=== PATIENT | female | born 1950 | race Caucasian/White ===

== ENCOUNTER 2020-10-20 14:37 | Observation (INO) | payer MEDICARE, SELFPAY ==
[2020-10-20] VITALS (25 sets, daily range): BP systolic 92–137; BP diastolic 48–71; PULSE 58–79; RESP 16–18; TEMP 36.2–37.1; O2SAT 92–100; BMI 42.7
--- NOTE | 2020-10-20 10:58 | PCM.HP.BLA ---
History and Physical Date of Admission: 10/20/20 HISTORY OF PRESENT ILLNESS 70 year old woman presents with pain and swelling left cheek and dorsum right hand secondary to a hematoma that she sustained on 10/04/20 when she fell at [employer] parking lot in [place]. She denied loss of consciousness. She was taken to [place] [facility]. X-rays and CT scans were negative for fracture. She denies fever. She denies any visual problems. She states the hematomas have decreased in size, but she is concerned about the firmness in the left cheek and the increasing pain. At the time of the injury, she states her left cheek was as large as a baseball. She presents at this time for further evaluation and treatment. PAST MEDICAL HISTORY Anxiety Arthritis Asthma Back problem Bite from insect Bone fracture Carpal tunnel syndrome Cataracts, bilateral Chronic cough Chronic insomnia Compression fracture of thoracic vertebra CPAP (continuous positive airway pressure) dependence Diverticulitis Easy bruising Former smoker Gallstones Gastric reflux GERD (gastroesophageal reflux disease) Gout Hearing problem High blood pressure High cholesterol History of diverticulitis Injury due to fall Kidney stones Leg edema Lumbar degenerative disc disease Lung nodules Morbid obesity Neuropathy Obstructive sleep apnea Osteoarthritis Osteoporosis Paget's disease Peripheral polyneuropathy Persistent headaches Right hand pain Shortness of breath on exertion Sleep apnea Spinal stenosis TIA (transient ischemic attack) Traumatic hematoma of face Traumatic hematoma of right hand Traumatic neuropathy left facial nerve Tremors of nervous system Vitamin deficiency Wears dentures Wears glasses PAST SURGICAL HISTORY colonoscopy endoscopy excision of lesion laminectomy lithotripsy tonsillectomy and adenoidectomy total hysterectomy Total knee replacement status ALLERGIES amoxicillin [From Augmentin] blue dye Allergy clavulanic acid [From Augmentin] cortisone Estrogens estrogens, conjugated [From Prempro] insect venom levofloxacin [From Levaquin] medroxyprogesterone [From Prempro] NSAIDS red dye yellow dye Iodinated Contrast Media mold trazodone Influenza Vaccine Progestrin MEDICATIONS acetaminophen albuterol sulfate/actuation aerosol inhaler allopurinol sifuazs-zefajqcjw-wdpv cetirizine cholecalciferol (vitamin D3) docusate sodium furosemide gabapentin hydrocodone-acetaminophen hydroxyzine ibandronate ipratropium bromide milk thistle montelukast nystatin omega 8-xcv-yzt-fish oil omeprazole orlistat phenylephrine HCl polyethylene glycol propranolol sertraline simvastatin temazepam triamcinolone acetonide tryptophan [L-Tryptophan] FAMILY HISTORY Father - Alcoholism, Cancer, Heart disease, Hypertension, Liver disease Mother - Anxiety, Arthritis, Bleeding disorder, Bowel disease, Depression Brother - Cancer, Melanoma Grandmother - Diabetes Uncle - Diabetes SOCIAL HISTORY Smoking Status: Former smoker alcohol intake: never substance use type: does not use REVIEW OF SYSTEMS General - Denies fever and weight loss. Has fatigue. Eyes - Has cataracts. Denies glaucoma. ENT - Denies nasal congestion and sore throat. Has chronic sinus problems. Endocrine - Denies excessive thirst and urination. Has heat and cold intolerance. Skin - Denies suspicious lesions and skin cancer. Has traumatic hematoma left cheek and dorsum right hand. Musculoskeletal - Has joint pain, joint stiffness, weakness of muscles and joints, back pain, and arthritis. Neuro - Has headaches. Has lightheadedness. Cardiovascular - Denies chest pain, fatigue, and shortness of breath with exertion. Psych - Denies anxiety and depression. Respiratory - Has chronic cough. Denies shortness of breath. Has sleep apnea. Has asthma. Patient is a former smoker. Gastrointestinal - Denies nausea, vomiting, diarrhea, and constipation. Hematologic - Denies abnormal bruising and bleeding. Genitourinary - Denies hematuria and urinary frequency. Has incontinence. PHYSICAL EXAMINATION General - Alert and Oriented. HEENT - PERRL. EOMI. Throat is clear. There is a large hematoma left cheek which extends up to the cheek-lower eyelid junction. Very firm and tender to palpation. The overlying skin is viable. Bruising is noted. No necrosis seen. Measures 7 cm. No periorbital bony tenderness. No stepoff deformity. Denies teeth pain. Has no trouble with eating. Occlusion ok. Has trouble with smiling on the left side as there is weak upper lip elevation. The zygomaticus muscle is in the vicinity of the hematoma so there is compression of the facial nerve in this area which should improve once the pressure is released in the operating room. Neck - Supple and nontender. No cervical adenopathy. Has some bruising on the anterior and left lateral neck. The area is soft. Probably blood tracking down from the left cheek hematoma to the neck. Chest wall - In the upper sternal area is some bruising. The area is soft. Probably blood tracking down from the left cheek hematoma to the upper sternal area. Lungs - Clear to auscultation. Heart - Regular rate and rhythm. Abdomen - Soft and nondistended. Extremities - FROM. No axillary adenopathy. Radial pulses are palpable. On the dorsum right hand is a hematoma that measures 3.5 cm. It is soft. Some tenderness to palpation. Wrist range of motion is nontender. No sensory deficits. Mild swelling noted. Neuro - CN II-XII grossly intact. Psych - Normal mood and affect. ASSESSMENT 1. Traumatic hematoma left cheek. 2. Traumatic hematoma dorsum right hand. 3. Left cheek pain secondary to the hematoma. 4. Right hand pain secondary to the hematoma. 5. Neuropathy left facial nerve secondary to the hematoma. 6. Family history of skin cancer. 7. Former smoker. 8. Injury due to a fall at [employer] lot. PLAN Medical notes reviewed. Patient has a large residual hematoma that is very firm and tender. There is also a hematoma on the dorsum right hand. The hematoma is too large to think it will completely resolve without getting infected. It is also very tender from the pressure of the hematoma. By evacuating the hematoma, will see how the left upper lip does with smiling now that the external compression (the hematoma) has been relieved. She has another traumatic hematoma on the dorsum right hand. Once again to minimize infection, will also evacuate that hematoma as well. Surgery will be done under local anesthesia and IV sedation with a surgical observation overnight stay in the hospital. Will proceed with surgical preparation left cheek and dorsum right hand with incision and drainage and evacuation and excisional debridement traumatic hematoma. The wounds will be left open and postoperative wound care will be done with Silver dressing changes or Dakin's dressing changes. After healing has occurred, if there is suboptimal healing of the scars with a contour deformity, can evaluate for scar revision reconstruction in 9-12 months. Tissue that is removed will be sent to Pathology for analysis to rule out carcinoma and to Microbiology for culture. A positive culture will necessitate antibiotics therapy. She will keep her head elevated during the initial postoperative period. Will schedule the surgery for tomorrow. Patient was informed of the risks and complications of the procedure including alternatives to surgery. These were discussed with the patient personally. Patient voices understanding and wishes to proceed. Some of the risks and complications were included in a form from the [place] [employer]. Some of the risks and complications that were discussed included but were not inclusive of failure to diagnose including symptom relief, pain, infection, numbness, stiffness, loss of digit, RSD (CRPS), need for further surgery, contracture, and wound healing problems. We discussed the current risks associated with COVID-19. While it is understood that there is a community spread of COVID-19, the risk of johnathon COVID-19 while at [facility] ([facility]) is very low; however, the risk cannot be completely mitigated because of the community spread of the disease. We discussed in detail the risk of exposure to and/or potential harm posed by the COVID-19 virus with having a surgery/procedure at this time versus the risk of delaying the surgery/procedure. It is not possible to know either the risk of delaying the surgery or procedure or chance of getting an infection with perfect accuracy, but a joint decision was made to proceed at this time with the scheduled surgery/procedure as indicated on the consent form. Patient was notified that we will need to comply with any screening or testing [facility] wishes to perform or that surgery may be delayed for any positive results. Procedure Criteria Procedure Type:?Elective COVID Risk Discussion: The surgeon/proceduralist and patient have discussed in detail the risk of exposure to and/or potential harm posed by the COVID-19 virus with having a surgery/procedure at this time versus the risk of delaying the surgery/procedure.? It is not possible to know either the risk of delaying the surgery or procedure or chance of getting an infection with perfect accuracy, but a joint decision was made between the patient and the surgeon/proceduralist to proceed at this time with the scheduled surgery/procedure as indicated on the consent form.
--- NOTE | 2020-10-20 11:39 | EKG12_ITS ---
Test Reason : PRE OP Blood Pressure : / mmHG Vent. Rate : 065 BPM Atrial Rate : 065 BPM P-R Int : 190 ms QRS Dur : 080 ms QT Int : 392 ms P-R-T Axes : 008 -14 017 degrees QTc Int : 407 ms Normal sinus rhythm Normal ECG Confirmed by ELI DELANEY, GWENDOLYN ([id number]), social media editor MAIKEL ORDAZ ([id number]) on 10/28/2020 9:49:23 AM Referred By: Barney Mccall Confirmed By:GWENDOLYN BENITEZ MD
[2020-10-20] MEDS: Lactated Ringers 1,000 ML 100 ML IV ×2 (12:20→14:21)
[2020-10-20] MEDS: Mupirocin Ointment 22gm Tube 1 APPLIC ×2 (13:15→13:46)
[2020-10-20] MEDS: Lidocaine 1% /Epi 1:100 (20ml) 20 ML Vial (13:20)
--- NOTE | 2020-10-20 13:30 | THRO_PTH ---
PATIENT: DENTON ABEBE LOC: MS3 U#:[id number] AGE/SX: 70/F ROOM: [facility] RE10/20/[address]: Dr. Barney Mccall MD : 1950 BED: 1 DIS: 10/21/2020 SPEC #: [id number] RECD: 10/20/20 15:28 STATUS: NIRAV AJITH #: [id number] ADI: 10/20/20 13:[address]: Barney Mccall DEPT: SURGICAL PATHOLOGY RECD BY: Rohan Mosher ENTERED: 10/21/20 09:52 SP TYPE: THROMBUS OTHR DR: Dr. Ally Schaefer, DO Tissues: A - BLOOD CLOT, NOS B - BLOOD CLOT, NOS Procedures: Surgery Specimen Level IV HEADER OPERATION: Incision and drainage abscess, evacuation of traumatic hematoma PRE-OP DIAGNOSIS: Traumatic hematoma left cheek; traumatic hematoma dorsum right hand; left cheek pain secondary to hematoma; right hand pain secondary to hematoma; neuropathy left facial nerve secondary to hematoma TISSUE SUBMITTED: A - Tissue from hematoma left cheek, B - Tissue from hematoma dorsum right hand MICROSCOPIC DIAGNOSIS A. Hematoma of left cheek, biopsy: Fat necrosis, fibrosis and organizing blood clot. B. Soft tissue of dorsum of right hand, biopsy: Fibrosis, granulation and organizing blood clot. AM:missael 10/22/2020 MICROSCOPIC DESCRIPTION Slides are reviewed. GROSS DESCRIPTION A - Received in fixative is one container labeled with the patient's name and designated tissue hematoma left cheek. The specimen consists of a piece of focally hemorrhagic soft tissue measuring 3 x 1 x 0.7 cm. The specimen is sectioned and submitted entirely in one cassette. B - Received in fixative is one container labeled with the patient's name and designated tissue dorsum right hand hematoma. The specimen consists of multiple irregular fragments of soft tissue and blood clot that in aggregate measure 3 x 2.5 x 0.4 cm. The specimen is totally submitted in one cassette. / SJ:missael 10/21/20 TC:5 CPT: 80528 x2
--- NOTE | 2020-10-20 13:52 | OP.PCM_ITS ---
Problems Associated Problem List Diagnoses (1) Traumatic hematoma of face: (2) Traumatic hematoma of right hand: (3) Right hand pain: (4) Family history of skin cancer: (5) Pain, face: (6) Traumatic neuropathy of left facial nerve: (7) Injury due to fall: (8) Former smoker: Report of Operation Date of Procedure: 10/20/20 Pre-Operative Diagnosis: 1. Traumatic hematoma left cheek. 2. Traumatic hematoma dorsum right hand. 3. Left cheek pain secondary to the hematoma. 4. Right hand pain secondary to the hematoma. 5. Neuropathy left facial nerve secondary to the hematoma. 6. Family history of skin cancer. 7. Former smoker. 8. Injury due to a fall at [employer]. Post-Operative Diagnosis: Same. Surgery/Procedure Performed:: 1. Surgical preparation left cheek with incision and drainage and evacuation and excisional debridement traumatic hematoma. 2. Surgical preparation dorsum right hand with incision and drainage and evacuation and excisional debridement traumatic hematoma. Description of Surgical Findings:: 70 year old woman presents with pain and swelling left cheek and dorsum right hand secondary to a hematoma that she sustained on 10/04/20 when she fell at [employer] in [place]. She denied loss of consciousness. She was taken to [place] [facility]. X-rays and CT scans were negative for fracture. She denies fever. She denies any visual problems. She states the hematomas have decreased in size, but she is concerned about the firmness in the left cheek and the increasing pain. At the time of the injury, she states her left cheek was as large as a baseball. Patient was informed of the risks and complications of the procedure including alternatives to surgery. These were discussed with the patient personally. Patient voices understanding and wishes to proceed. Some of the risks and complications were included in a form from the [place] [employer]. Size of defect left cheek - 4 cm length supramedial cheek area and 4 cm length cheek-lower eyelid junction. Size of defect dorsum right hand, radial - 4 x 1 cm. Size of defect dorsum right hand, ulnar - 4 x 1 cm. Surgeon: Barney Mccall computer software engineer: None Type of Anesthesia: Local MAC (xylocaine with epinephrine and IV sedation.) Specimen's removed: 1. Left cheek hematoma tissue to Pathology and Microbiology. 2. Dorsum right hand hematoma tissue to Pathology and Microbiology. Drains: None. Estimated Blood Loss (mL): 50. Description of Procedure: Patient was taken to OR in supine position and was given IV sedation. The face and right hand were prepped and draped in the usual fashion. SCD's were placed for DVT prophylaxis. Perioperative antibiotics were given intravenously. The face and dorsum right hand were infiltrated with xylocaine and epinephrine. After waiting 5 minutes for the anesthetic to take effect, I first started on the left cheek. Under loupe magnification, I made a horizontal incision in the cheek-lower eyelid crease and made an oblique incision down the melolabial fold area. This is the same incision I would use for a skin cancer in the supramedial cheek area as the scar heals very well into the skin creases of the face. I dissected down through the subcutaneous tissue until I hit hard tissue that is consistent with a capsule that was forming around the hematoma. Dissecting a little deeper, I got into the hematoma cavity. The blood was dark brown and no active bleeding was noted. No pus was seen. The hematoma showed some creaminess that generally indicates an infection is forming. I could not detect an odor. After evacuating the hematoma, the facial musculature in this area was bruised yet viable. There was no exposed bone. The thickened capsular tissue of the hematoma cavity was excised and debrided, mostly on the periphery. The wound was irrigated with saline. Hemostasis was obtained with electrocautery. I reapproximated the cheek flap at the most supramedial point between the horiziontal incision and the oblique incision. The length of the horizontal incision in the cheek-lower eyelid crease was 4 cm. The length of the oblique incision in the melolabial crease was 4 cm. I dressed the wound with Mepitel nonadherent dressing followed by gauze and Betadine followed by dry gauze. I then went to the dorsum right hand. I made longitudinal incisions both on the radial side and ulnar side which exposed the hematoma cavity. Once again, I hit hard tissue in the subcutaneous tissue that is consistent with a capsule that was forming around the hematoma. Dissecting a little deeper, I got into the hematoma cavity. It extended to the underlying extensor tendons. The blood was dark brown and no active bleeding was noted. No pus was seen. No creaminess was seen in this hematoma. I could not detect and odor. After evacuating the hematoma, the underlying extensor tendons were intact. The thickened capsular tissue of the hematoma cavity was excised and debrided, mostly on the periphery. The wound was irrigated with saline. Hemostasis was obtained with electrocautery. The length of the wound dorsum right hand, radial, was 4 x 1 cm. The length of the wound dorsum right hand, ulnar, was 4 x 1 cm. I dressed the wounds with Mepitel nonadherent dressing followed by gauze and Betadine followed by gauze and a compression harriett wrap. Tissue that was removed from each area was sent to Pathology separately for analysis to rule out carcinoma and to Microbiology for culture. A positive culture will necessitate antibiotic therapy. Patient tolerated the procedure well and was sent to PACU in satisfactory condition. Patient will be sent upstairs for continued postop care. Will redress the wounds tomorrow with Silver dressing changes to be done daily. She will keep her head elevated during the initial postoperative period. Any positive cultures will necessitate antibiotic therapy. Can consider further operative debridement and complex secondary wound closure after the infection has been treated and the surrounding skin is free of inflammation and swelling. Grafts/Implants Used: None. Complications None. Admit VTE Documentation VTE Present on Admission: No VTE Mechan Device Prophylaxis: SCD's VTE Pharm Prophylaxis ordered?: Yes Addendum Addendum: Surgery Charges CPT - 46140 ICD-10 - S60.221A, M79.641, W19.xxxA, Z80.8, Z87.891, S00.83xA, R51.9, S04.52xA 25416 S60.221A, M79.641, W19.xxxA, Z80.8, Z87.891, S00.83xA, R51.9, S04.52xA 55243 S00.83xA, R51.9, S04.52xA, W19.xxxA, Z80.8, Z87.891, S60.221A, M79.641 88854 S00.83xA, R51.9, S04.52xA, W19.xxxA, Z80.8, Z87.891, S60.221A, M79.641
--- NOTE | 2020-10-20 14:40 | DCINST_ITS ---
Discharge Instructions Activity Discharge Activity: May Not Drive and May Not Shower May resume sexual activity in: 2 weeks Weight Bearing Status: Weight bearing as tolerated Lifting Restrictions: 2O LB Dressing / Incision Call your doctor if your incision/area has: Continuous Slow Oozing, Sudden Increased Bleeding, Increased Pain/ Swelling, Increased Redness, Foul Smelling Discharge and Swelling at the incision site Call your doctor if you observe: Fever of 101 or Higher, Coldness, Increased Pain, Shortness of breath, Chest pain, Calf discomfort and Uncontrolled pain Follow Up Care Please Follow Up With: Barney Mccall MD When: ONE WEEK. CALL [phone] FOR APPT Test Results: Test results from this visit will be discussed in further detail at your follow-up appointment, if applicable. Discharge Plan Admission Attending Provider: Barney Mccall Primary Care Provider: Ally Schaefer Discharge Orders/Prescriptions Prescriptions: No Action allopurinol 300 mg tablet 300 mg PO DAILY RF: 0 ipratropium bromide 21 mcg (0.03 %) spray,non-aerosol 2 spray intranasal BID RF: 0 furosemide [Lasix] 40 mg tablet 40 mg PO DAILY PRN PRN (Reason: Edema) RF: 0 nystatin 100,000 unit/gram cream 1 applic topical DAILY RF: 0 triamcinolone acetonide 0.1 % ointment 1 applic topical .prn RF: 0 albuterol sulfate [Ventolin HFA] 90 mcg/actuation HFA aerosol inhaler 2 puff inhalation Q6H PRN (Reason: breathing) RF: 0 hydrocodone-acetaminophen 5-325 mg tablet 1 tab PO Q8H PRN (Reason: Pain) RF: 0 hydroxyzine HCl 25 mg tablet 25 mg PO TID PRN (Reason: antihistamine) RF: 0 cetirizine [Zyrtec] 10 mg tablet 10 mg PO QHS PRN (Reason: seasonal allergies) RF: 0 Marlo 60 mg capsule 120 mg PO BID RF: 0 cxrecal-mhofzmobt-xkei Tablet 1 tab PO DAILY RF: 0 docusate sodium [Colace] 100 mg capsule 300 mg PO DAILY RF: 0 cholecalciferol (vitamin D3) 350 mcg (14,000 unit) capsule 3,000 mcg PO QHS RF: 0 milk thistle 500 mg capsule 500 mg PO DAILY RF: 0 polyethylene glycol 3350 [Miralax] 17 gram/dose powder 17 g PO DAILY RF: 0 omega 1-icl-wan-fish oil 108-162-1,000 mg capsule 1 cap PO DAILY RF: 0 phenylephrine HCl 10 mg tablet 10 mg PO ONCE RF: 0 Tylenol Extra Strength 500 mg powder in packet 1,000 mg PO Q6H PRN (Reason: Pain) RF: 0 simvastatin 40 mg tablet 40 mg PO QHS RF: 0 propranolol 40 mg tablet 40 mg PO DAILY RF: 0 temazepam 30 mg capsule 30 mg PO QHS RF: 0 gabapentin 300 mg capsule 300 mg PO QHS RF: 0 sertraline 25 mg tablet 25 mg PO DAILY RF: 0 omeprazole 20 mg capsule,delayed release(DR/EC) 20 mg PO DAILY RF: 0 montelukast 10 mg tablet 10 mg PO DAILY RF: 0 ibandronate 150 mg tablet 150 mg PO QMONTH RF: 0 tryptophan [L-Tryptophan] 500 mg Capsule 1,000 mg PO QHS PRN (Reason: mood) RF: 0 Other Ambulatory Orders: 12 Lead EKG (Routine) Timeframe: 20201020 Facility: [facility] - Location: Cardiovascular Services Ordered By: Dr. Panda Olmedo Referrals / Follow Up: Ally Schaefer DO [Primary Care Provider] - Disposition Disposition (needs filled in before D/C Order can be placed): Home, Self Care
--- NOTE | 2020-10-20 15:07 | SUR.PHASEI ---
Patient is ready to transfer to third floor. Awaiting a bed assignment. Will continue to monitor with q15 Vs.
[2020-10-20] MEDS: Temazepam 15 MG Capsule 30 MG PO (22:02)
[2020-10-20] MEDS: Acetaminophen 500 MG Tablet 1000 MG PO (22:02)
[2020-10-20] MEDS: Atorvastatin Calcium 20 MG Tablet PO (22:02)
[2020-10-20] MEDS: Cholecalciferol (VIT D3) 25 MCG TABLET (1,000 UNITS) 75 MCG PO (22:02)
--- NOTE | 2020-10-20 22:34 | PCS.PANDOC ---
PANDEMIC DOCUMENTATION INITIATED: Date: 10/04/2020 Time: 190
[2020-10-21 03:32] VITALS: BP 127/54; PULSE 55; RESP 18; TEMP 36.5; O2SAT 97
[2020-10-21 05:51] LABS: Mean Corp Hgb Conc 30.8 g/dL (32-36); Mean Corpuscular Hgb 31.7 pg (27.0-32.0); Mean Corpuscular Volume 103.2 fL (81-99); Mean Platelet Vol. 9.5 fl (6.2-12.0); Platelet Count 241 K/mm3 (150-450); RBC Distribution Width CV 13.2 % (11.6-14.6); Red Blood Count 3.78 M/mm3 (4.2-5.4); White Blood Count 6.4 K/mm3 (4.4-11.0)
[2020-10-21 06:23] LABS: Anion Gap 5 (5-15); BUN 16 mg/dL (7-18); BUN/Creat Ratio 22.2 RATIO (10-20); Calcium,Total 9.3 mg/dL (8.5-10.1); Chloride 105 mmol/L (98-107); Creatinine, Serum 0.72 mg/dL (0.55-1.02); EST Glomerular Filtration Rate 85 mL/min (>60); Est Glom Filt Rate - Afr Amer 103 mL/min (>60); Glucose 98 mg/dL (74-106); Potassium 4.4 mmol/L (3.5-5.1); Sodium Level 140 mmol/L (136-145)
[2020-10-21] MEDS: Acetaminophen 500 MG Tablet 1000 MG PO ×2 (07:29→13:28)
[2020-10-21 08:41] VITALS: BP 117/57; PULSE 83; RESP 18; TEMP 36.6; O2SAT 99
[2020-10-21] MEDS: Gabapentin 300 MG Capsule PO (08:45)
[2020-10-21 09:15] VITALS: BP 117/57; PULSE 74; RESP 14; TEMP 36.6; O2SAT 99
--- NOTE | 2020-10-21 09:56 | WOUNDNOTE ---
wound photo: left cheek
--- NOTE | 2020-10-21 09:57 | WOUNDNOTE ---
wound photo: right hand
[2020-10-21] MEDS: Propranolol 40 MG Tablet PO (10:23)
[2020-10-21] MEDS: Docusate Sodium 100 MG Capsule 300 MG PO (10:23)
[2020-10-21] MEDS: Pantoprazole Sodium 20 MG Tablet PO (10:23)
[2020-10-21] MEDS: Sertraline 50 MG Tablet 25 MG PO (10:23)
[2020-10-21] MEDS: Allopurinol 300 MG Tablet PO (10:24)
[2020-10-21] MEDS: Polyethylene Glycol 3350 17 GM PACKET PO (10:24)
[2020-10-21] MEDS: Enoxaparin 40 MG/0.4 ML Syringe SC (10:24)
[2020-10-21] MEDS: Montelukast 10 MG Tablet PO (10:24)
--- NOTE | 2020-10-21 11:08 | CASEMGMT ---
LYDIA GAONA Assessment: Face to Face with pt for initial transition planning/care coordination assessment. RN JIMENEZ introduced self and role at [facility], pt voices understanding and consents to assessment. Pt is A/O x4 and answers all questions appropriately at this time. Pt sitting up in bed in no distress with O2 on. Care providers, pharmacy, and demographics verified/updated. Admitting Dx: I &D and evacuation and excisional debridement traumatic hematoma PCP:Silvano Specialists: Sofy, eyedotter; Stefany, surgeon Preferred Pharmacy: [facility] while inpt Insurance: [employer] Prescription Benefit: yes LW/HPOA: Pt states she does have a LW/DPOA but she could not find it prior to surgery. She states her is her DPOA. She is aware that she can bring in at any time to be scanned into the chart. LNOK: Teodoro Thurmanbik, Living Arrangements: Pt lives with in a single story house with 12 steps to enter with a rail on each side. Pt states she is I in ADL's and denies concerns at home. Transportation: Pt drove up to 9-10 mos ago. She stopped d/t cataracts. Her transports her to medical appts. DME/HHC/SNF: Pt has a cane, walker, over the toilet rails and a toilet seat riser. Pt denies having previous HHC but has been in [facility] rehab. Pt tearful throughout assessment. She states this is more than I anticipated. Discussed wound care with her. She feels she can do the wound care on her cheek but not her hand as it is her dominant hand. Pt states her will be in and the wound nurse will do dressing change with him present. Patient was provided a list of HHC providers including quality and resource use data and consistent with the patient?s preferred geographic region, medical needs, and insurance network. Pt to discuss with and CM to check back. Pt states no concerns with going home at time of dc. Pt states no further concerns/needs. CM to follow. Advised pt to ask CM if any further question/concerns/needs arise, voices understanding. Pt Goal: Home Plan: Home possibly with HHC.
[2020-10-21] MEDS: 0.9% Saline Lock 10 ML Syringe IV (12:24)
[2020-10-21 13:19] VITALS: BP 101/78; PULSE 73; RESP 18; TEMP 36.5; O2SAT 96
[2020-10-21 13:53] VITALS: PULSE 66; O2SAT 95
[2020-10-21 15:36] VITALS: BP 121/52; PULSE 67; RESP 20; TEMP 36.6; O2SAT 91
--- NOTE | 2020-10-21 15:37 | CASEMGMT ---
LYDIA CM into pt room. Pt sitting up in chair with at bedside. Pt watched dressing change be completed and states they want to try to do wound care on their own and not have HHC. Pt has list provided and is aware that if she should change her mind once she is home to notify or her PCP for HHC to be ordered. She verbalized understanding as well as .
--- NOTE | 2020-10-21 15:41 | WOUNDNOTE ---
Dressings changed with . patient and feel they will be able to change the dressing at home. do not feel that home health will be needed. all questions answered. patient tolerated dressing changes well.
--- NOTE | 2020-10-21 16:29 | PN.SURG_ITS ---
Subjective Subjective Postop #1 Patient is sitting up in chair. She states her pain is well controlled. Objective Data Objective Data Vital Signs: Vital Signs Temp Pulse Resp BP Pulse Ox 98 F 67 20 H 121/52 H 91 10/21/20 15:36 10/21/20 15:36 10/21/20 15:36 10/21/20 15:36 10/21/20 15:36 Oxygen Flow Rate (L/min) 2 Oxygen Delivery Method Room Air Weight: 241 lb Body Mass Index (BMI) 42.7 Intake & Output: Intake and Output for Last 24 Hours 10/19/20 10/20/20 10/21/20 23:59 23:59 23:59 Intake Total 2346 / 2346 1012 / 1012 Balance 2346 / 2346 1012 / 1012 Lab / Micro Data Result Diagrams: 10/21/20 05:22 10/21/20 05:22 Labs: Laboratory Results - last 24 hr 10/21/20 05:22: WBC 6.4, RBC 3.78 L, Hgb 12.0, Hct 39.0, MCV 103.2 H, MCH 31.7, MCHC 30.8 L, RDW Std Deviation 50.0 H, RDW Coeff of Rafaela 13.2, Plt Count 241, MPV 9.5 10/21/20 05:22: Sodium 140, Potassium 4.4, Chloride 105, Carbon Dioxide 30.0, Anion Gap 5, BUN 16, Creatinine 0.72, Estim Creat Clear Calc 43.30, Est GFR (MDRD) Af Amer 103, Est GFR (MDRD) Non-Af 85, BUN/Creatinine Ratio 22.2 H, Glucose 98, Calcium 9.3, Prealbumin 22.0 Micro: Microbiology 10/20/20 Unknown Tissue - Face Gram Stain - Final 10/20/20 Unknown Tissue - Face Wound Culture - Preliminary No growth-Final to follow 10/20/20 Unknown Tissue - Hand Gram Stain - Final 10/20/20 Unknown Tissue - Hand Wound Culture - Preliminary No growth-Final to follow Physical Exam Const oriented x3 and no apparent distress HEENT HEENT Narrative: Left cheek lateral and vertical wounds are clean with Aquacel- Ag packed into the wound. Sutures in place. Still has left mouth facial droop. Eyes PERRL Resp normal respiratory effort Cardio regular rate GI soft to palpation Extremity full ROM Extremity Narrative: Right hand with dressing and JYOTHI wrap for compression. Good range of motion of fingers. 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 Patient's feels comfortable doing the dressing changes at home and they do not feel like they need to have home health to assist with the dressing changes. Encouraged patient to keep head and right hand elevated to decrease swelling. Operative cultures pending. Will send her home on Clindamycin antibiotic. Will order Percocet for pain. She will follow up in the office next Sunday10/26/20. Charges/Coding Procedures Integumentary [id number]: [id number] Global Visit
--- NOTE | 2020-10-21 16:29 | DCINST_ITS ---
Discharge Instructions Diet Discharge Diet: No restrictions (Increased protein intake to help with wound healing) Activity Discharge Activity: May Shower May resume sexual activity in: No Restrictions Lifting Restrictions: 20 lb weight lifting restriction Keep extremity elevated above heart level: Right Arm Additional Activity Instructions:: refrain from bending over Dressing / Incision Call your doctor if your incision/area has: Continuous Slow Oozing, Sudden Increased Bleeding, Increased Redness and Foul Smelling Discharge Call your doctor if you observe: Fever of 101 or Higher, Shortness of breath, Chest pain, Calf discomfort and Uncontrolled pain Change Dressing in: 1 day Cleanse incision/area with: Soap & Water Additional Dressing/Incision Instructions:: Change dressing daily, remove old dressing, pack Aquacel-Ag into the open wound and on the hand. Cover with gauze. Place JYOTHI wrap on right hand. Follow Up Care Please Follow Up With: Dr. Mccall/Anna When: Next Sunday10/26/20. Call for an appointment [phone] Test Results: Test results from this visit will be discussed in further detail at your follow-up appointment, if applicable. Discharge Plan Admission Admit Date/Time: 10/20/20 14:37 Attending Provider: Barney Mccall Primary Care Provider: Ally Shcaefer Discharge Orders/Prescriptions Prescriptions: New oxycodone-acetaminophen [Percocet] 5-325 mg tablet 1 tab PO Q4H PRN (Reason: pain (scale score 7-10)) 7 Days Qty: 40 RF: 0 clindamycin HCl 300 mg capsule 300 mg PO TID 10 Days Qty: 30 RF: 0 Continued allopurinol 300 mg tablet 300 mg PO DAILY RF: 0 ipratropium bromide 21 mcg (0.03 %) spray,non-aerosol 2 spray intranasal BID RF: 0 furosemide [Lasix] 40 mg tablet 40 mg PO DAILY PRN PRN (Reason: Edema) RF: 0 nystatin 100,000 unit/gram cream 1 applic topical DAILY RF: 0 triamcinolone acetonide 0.1 % ointment 1 applic topical .prn RF: 0 albuterol sulfate [Ventolin HFA] 90 mcg/actuation HFA aerosol inhaler 2 puff inhalation Q6H PRN (Reason: breathing) RF: 0 hydrocodone-acetaminophen 5-325 mg tablet 1 tab PO Q8H PRN (Reason: Pain) RF: 0 hydroxyzine HCl 25 mg tablet 25 mg PO TID PRN (Reason: antihistamine) RF: 0 cetirizine [Zyrtec] 10 mg tablet 10 mg PO QHS PRN (Reason: seasonal allergies) RF: 0 Marlo 60 mg capsule 120 mg PO BID RF: 0 qmlhqap-jhfzrqdzf-suil Tablet 1 tab PO DAILY RF: 0 docusate sodium [Colace] 100 mg capsule 300 mg PO DAILY RF: 0 cholecalciferol (vitamin D3) 350 mcg (14,000 unit) capsule 3,000 mcg PO QHS RF: 0 milk thistle 500 mg capsule 500 mg PO DAILY RF: 0 polyethylene glycol 3350 [Miralax] 17 gram/dose powder 17 g PO DAILY RF: 0 omega 7-pul-uiz-fish oil 108-162-1,000 mg capsule 1 cap PO DAILY RF: 0 phenylephrine HCl 10 mg tablet 10 mg PO ONCE RF: 0 Tylenol Extra Strength 500 mg powder in packet 1,000 mg PO Q6H PRN (Reason: Pain) RF: 0 simvastatin 40 mg tablet 40 mg PO QHS RF: 0 propranolol 40 mg tablet 40 mg PO DAILY RF: 0 temazepam 30 mg capsule 30 mg PO QHS RF: 0 gabapentin 300 mg capsule 300 mg PO QHS RF: 0 sertraline 25 mg tablet 25 mg PO DAILY RF: 0 omeprazole 20 mg capsule,delayed release(DR/EC) 20 mg PO DAILY RF: 0 montelukast 10 mg tablet 10 mg PO DAILY RF: 0 ibandronate 150 mg tablet 150 mg PO QMONTH RF: 0 tryptophan 500 mg Capsule 1,000 mg PO QHS PRN (Reason: mood) RF: 0 Other Ambulatory Orders: 12 Lead EKG (Routine) Timeframe: 20201020 Facility: [facility] - Location: Cardiovascular Services Ordered By: Dr. Panda Olmedo Referrals / Follow Up: Ally Schaefer DO [Primary Care Provider] - Disposition Disposition (needs filled in before D/C Order can be placed): Home, Self Care
== END 2020-10-21 17:44 | disposition home or self-care (01) ==
LOC: SDC 15:49 → MS3 15:49
PROVIDERS: Admitting Provider Surgery; PCP Family Medicine; Referring Provider Surgery; Visit Provider Surgery
PROC: (CPT 10140; principal; 2020-10-20 13:20)
DX: S00.83XA Contusion of other part of head, initial encounter (principal); S60.221A Contusion of right hand, initial encounter; S04.52XA Injury of facial nerve, left side, initial encounter; J45.909 Unspecified asthma, uncomplicated; M19.90 Unspecified osteoarthritis, unspecified site; F41.9 Anxiety disorder, unspecified; K21.9 Gastro-esophageal reflux disease without esophagitis; M10.9 Gout, unspecified; I10 Essential (primary) hypertension; G47.33 Obstructive sleep apnea (adult) (pediatric); E78.00 Pure hypercholesterolemia, unspecified; G62.9 Polyneuropathy, unspecified; M51.36 Other intervertebral disc degeneration, lumbar region; E66.01 Morbid (severe) obesity due to excess calories; W19.XXXA Unspecified fall, initial encounter; Y92.512 Supermarket, store or market as the place of occurrence of the external cause; Z80.8 Family history of malignant neoplasm of other organs or systems; Z87.891 Personal history of nicotine dependence; Z79.899 Other long term (current) drug therapy; Z68.41 Body mass index [BMI] 40.0-44.9, adult
CPT/HCPCS: 00300; 10140 ×2; 15002; 15004; 36415; 80048; 84134; 85027; 87070; 87075; 87102; 87176; 87205; 87206; 88304; 88305; 93005; 96361; 96365; 96366; 96372; 99218; J7120; A4216; G0378; J2405

== ENCOUNTER → 2024-06-03 | Outpatient (CLI) | payer MEDICARE, SELFPAY ==
[2024-06-03 12:42] LABS: Hematocrit 40.3 % (37-47); Hemoglobin 13.3 g/dL (12.0-15.0); Mean Corpuscular Hgb 31.8 pg (27.0-32.0); Mean Corpuscular Volume 96.4 fL (81-99); Mean Platelet Vol. 10.2 fl (6.2-12.0); Platelet Count 294 K/mm3 (150-450); RBC Distribution Width CV 13.8 % (11.6-14.6); RBC Distribution Width SD 48.9 fl (35.1-43.9); Red Blood Count 4.18 M/mm3 (4.2-5.4); White Blood Count 9.3 K/mm3 (4.4-11.0)
[2024-06-03 13:30] LABS: ALB/GLOB Ratio 1.3 RATIO (0.9-2.4); AST(SGOT) 25 U/L (<=31); Alanine Aminotransfer ALT/SGPT 16 U/L (<=34); Albumin, Serum 4.2 g/dL (3.4-4.8); Alkaline Phosphatase 98 U/L (35-104); Anion Gap 12 (5-15); BUN 15 mg/dL (4-19); BUN/Creat Ratio 19.1 RATIO (10-20); Carbon Dioxide 25.1 mmol/L (21.0-32.0); Chloride 101 mmol/L (98-108); Cholesterol 173 mg/dL (<=200); Creatinine, Serum 0.77 mg/dL (0.70-1.20); EST Glomerular Filtration Rate 81 (>60); Globulin 3.3 g/dL (2.2-4.2); Glucose 92 mg/dL (70-99); High Density Lipoprotein 90 mg/dL; Low Density Lipoprotein Calc. 67 mg/dL; Potassium 3.9 mmol/L (3.3-5.1); Protein, Total 7.4 g/dL (5.9-8.4); Sodium Level 138 mmol/L (133-145); Total Bilirubin 0.36 mg/dL (0.00-1.30); Triglycerides 82 mg/dL; Very Low Density Lipoprotein 16 mg/dL (5-40); Vitamin B12 559 pg/mL (180-914); cholesterol:hdl ratio screen 1.93
[2024-06-05 15:08] LABS: Vitamin D 1,25-Dihydroxy 95.1 pg/mL (24.8-81.5)
[2024-06-09 10:07] LABS: Free Kappa Light Chains 19.4 mg/L (3.3-19.4); Free Lambda Light Chains 13.7 mg/L (5.7-26.3); Vitamin B1, Thiamine 152.1 nmol/L (66.5-200.0)
== END | disposition home or self-care (01) ==
LOC: MTLAB 10:32
PROVIDERS: PCP Family Medicine; Referring Provider Psychiatry & Neurology Neurology; Visit Provider Psychiatry & Neurology Neurology
DX: G62.9 Polyneuropathy, unspecified (principal); F41.9 Anxiety disorder, unspecified; E78.5 Hyperlipidemia, unspecified; Z86.39 Personal history of other endocrine, nutritional and metabolic disease
CPT/HCPCS: 36415; 80053; 80061; 82607; 82652; 82747; 83883; 84425; 84443; 85014; 85027

== ENCOUNTER → 2024-06-23 | Outpatient (CLI) | payer MEDICARE, SELFPAY ==
--- NOTE | 2024-06-23 13:50 | CDU_ITS ---
Reason For Study Reason For Study: Rt Carotid Bruit Rt. Velocities/BP Lt. Velocities/BP Prox CCA 59.2/7.6 cm/sec. Prox CCA 57.9/9.3 cm/sec. Mid CCA 69.1/14.2 cm/sec. Mid CCA 82.1/8.5 cm/sec. Dist CCA 58.1/9.8 cm/sec. Dist CCA 54.8/12.0 cm/sec. Prox ICA 65.8/17.5 cm/sec. Prox ICA 63.7/19.5 cm/sec. Mid ICA 94.8/18.1 cm/sec. Mid ICA 82.1/20.8 cm/sec. Dist ICA 90.7/24.4 cm/sec. Dist ICA 101.4/24.8 cm/sec. Rt. ICA/CCA = 1.4. Lt. ICA/CCA = 1.2. Prox ECA 74.8/6.0 cm/sec. Prox ECA 55.7/5.5 cm/sec. Rt. Vert. 32.9/4.3 cm/sec. Lt. Vert. 39.2/9.7 cm/sec. Right Extracranial There is intimal thickening but no significant atherosclerotic plaque noted in the right common carotid artery. There is heterogeneous, irregular atherosclerotic plaque noted in the right internal carotid artery. There is intimal thickening but no significant atherosclerotic plaque noted in the right external carotid artery. Antegrade flow is noted in the right vertebral artery. Left Extracranial There is heterogeneous, irregular atherosclerotic plaque noted in the left common carotid artery. There is heterogeneous, irregular atherosclerotic plaque noted in the left internal carotid artery. There is heterogeneous, irregular atherosclerotic plaque noted in the left external carotid artery. Antegrade flow is noted in the left vertebral artery. Procedure Carotid Duplex [id number]. This is a Carotid Duplex examination using B-mode, color flow and specral Doppler. The exam was diagnostic. Exam performed in department. VL/Carotid Duplex Ultrasound Interpretation Summary Mild (<50%) stenosis right extracranial internal carotid. Mild (<50%) stenosis left extracranial internal carotid. Patent and antegrade vertebrals bilaterally. Ordering Physician: Beau Alatorre Referring Physician: Ally Schaefer Performed By: Latrell Delatorre RVT
== END | disposition home or self-care (01) ==
LOC: CVS 13:48
PROVIDERS: PCP Family Medicine; Referring Provider Psychiatry & Neurology Neurology; Visit Provider Psychiatry & Neurology Neurology
DX: R09.89 Other specified symptoms and signs involving the circulatory and respiratory systems (principal)
CPT/HCPCS: 93880

== ENCOUNTER → 2024-07-01 | Outpatient (CLI) | payer MEDICARE, SELFPAY ==
--- NOTE | 2024-07-01 10:45 | MRI_ITS ---
EXAM: BRAIN WITHOUT CONTRAST CLINICAL HISTORY: HISTORY OF TIA, tremors COMPARISON: None. TECHNIQUE: Multiplanar, multisequence MR images of the brain were obtained without gadolinium contrast material. FINDINGS: No intracranial hemorrhage, mass, mass effect, midline shift or pathologic extra- axial fluid collection. No hydrocephalus. There are scattered foci of abnormal increased T2 and FLAIR signal throughout the deep white matter on the right and left with the largest in the left mid parietal region measuring 0.6 cm, image 17/26, and the largest in the right frontal deep white matter measuring 0.6 cm, image 13/26, with no associated acute restricted diffusion. No areas of restricted diffusion to suggest acute ischemia or infarction. No gradient signal blooming artifacts are identified. No cerebellar tonsillar ectopia. No sellar/suprasellar signal abnormalities. The ocular globes and intraorbital soft tissues are symmetrically unremarkable. There is fluid signal in a portion of the mastoid air cells on the right and left. Mucosal thickening is visible in the left aspect of the sphenoid sinus. MRI/Brain without Contrast IMPRESSION: There is fluid signal in a portion of the mastoid air cells on the right and le ft. Mucosal thickening is visible in the left aspect of the sphenoid sinus. There are scattered foci of abnormal increased T2 and FLAIR signal throughout t he deep white matter on the right and left with the largest in the left mid parietal region measuring 0.6 cm, image 17/26, and the largest in the right frontal deep white matter measuring 0.6 cm, image 13/26, with no associated acute restricted diffusion. This likely represents chronic ischemic changes. Reading Location: [facility]
== END | disposition home or self-care (01) ==
LOC: OPMRI 10:22
PROVIDERS: PCP Family Medicine; Referring Provider Psychiatry & Neurology Neurology; Visit Provider Psychiatry & Neurology Neurology
DX: Z86.73 Personal history of transient ischemic attack (TIA), and cerebral infarction without residual deficits (principal)
CPT/HCPCS: 70551

== ENCOUNTER → 2024-07-15 | Outpatient (CLI) | payer MEDICARE, SELFPAY ==
--- NOTE | 2024-07-15 14:25 | RAD_ITS ---
PROCEDURE: L/S SPINE MIN 4 VIEWS 07/15/2024 REASON FOR EXAM: LUMBAR BACK PAIN TECHNIQUE: Four views, AP, bilateral oblique and lateral COMPARISON: None available FINDINGS: 5 [id number] lumbar vertebral body types identified. Leftward curvature, scoliosis. No definite spondylolysis identified. No fracture identified. Mild step retrolisthesis L1 on L2 and L2 on L3. T12-L1 spondylosis/discogenic change L1-2 mild disc space narrowing L2-3 [id number] disc space narrowing with degenerative endplate changes L3-4 mild disc space narrowing L4-5 [id number] appearing disc space narrowing and degenerative endplate changes. Aortoiliac atherosclerotic changes. Lower lumbar facet degenerative changes. Question a heterogeneous appearance of the pelvic bones about the hips and pubic symphysis, can not exclude possibility of a metastatic disease, correlate with history. RAD/L/S Spine Min 4 Views IMPRESSION: Multilevel spondylosis/discogenic change as above. Question a heterogeneous appearance of the pelvic bones about the hips and pubi c symphysis, can not exclude possibility of a metastatic disease, correlate with history. Reading Location: [id number]
--- NOTE | 2024-07-15 14:25 | RAD_ITS ---
PROCEDURE: THORACIC SPINE 3 VIEWS 07/15/2024 REASON FOR EXAM: MIDLINE THORACIC BACK PAIN TECHNIQUE: Three views of the thoracic spine COMPARISON: None FINDINGS: There is 50% anterior compression the T7 and T8, with 50% anterior compression at T11, 25% anterior compression at T12, with kyphosis. 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 There is no spondylolisthesis. Levoscoliosis of the upper lumbar spine is noted. Osteopenia is present. Vascular calcifications are visible. RAD/Thoracic Spine 3 Views IMPRESSION: There is 50% anterior compression the T7 and T8, with 50% anterior compression at T11, 25% anterior compression at T12, with kyphosis. MRI or bone scan could be helpful to determine chronicity if clinica lly indicated. 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 Reading Location: [facility]
== END | disposition home or self-care (01) ==
LOC: MTRAD 14:22
PROVIDERS: PCP Family Medicine; Referring Provider Family Medicine; Visit Provider Family Medicine
DX: M54.50 Low back pain, unspecified (principal); M54.6 Pain in thoracic spine
CPT/HCPCS: 72072; 72110

== ENCOUNTER → 2024-08-06 | Outpatient (CLI) | payer MEDICARE, SELFPAY ==
--- NOTE | 2024-08-06 07:04 | ECHOD_ITS ---
Reason For Study Reason For Study: CHEST PAIN Procedure This was a 2D Doppler, Color Flow transthoracic echocardiogram. Myocardial strain analysis was performed in this exam to aid in the assessment of cardiac function. Exam performed in department. Left Ventricle Normal LV size. Left ventricular systolic function is normal. The left ventricular ejection fraction is 55 %. No regional wall motion abnormalities noted. Right Ventricle Normal RV size. Normal systolic function. Atria The left atrium is moderately enlarged. Normal right atrium. Mitral Valve Mild diffuse mitral valve thickening. Moderate (2+) eccentric mitral valve insufficiency. Tricuspid Valve Normal tricuspid valve. Mild to moderate (1-2+) tricuspid valve insufficiency. Pulmonary artery systolic pressure is 45 mmHg. Aortic Valve Trisinus/trileaflet aortic valve. Mild focal aortic valve calcification. Pulmonic Valve Normal pulmonic valve. Great Vessels Normal aortic root. The pulmonary artery is normal size. Inferior vena cava collapse with respiration. Pericardium/Pleural No pericardial effusion. MMode/2D Measurements & Calculations LVIDd: 4.5 cm IVSd: 0.95 cm LVOT diam: 1.9 cm LVIDs: 2.9 cm LVPWd: 0.76 cm LVOT area: 2.8 cm2 RVDd: 3.7 cm FS: 34.8 % asc Aorta Diam: 3.0 cm LAV(MOD-bp): 85.5 ml LVAd ap4: 22.6 cm2 LAV(MOD-bp) Indexed: 44.9 ml/m2 LVLd ap4: 7.2 cm LAV(MOD-sp2): 73.3 ml EDV(MOD-sp4): 57.4 ml LAV(MOD-sp4): 88.4 ml EDV(sp4-el): 60.4 ml LVAs ap4: 11.4 cm2 LVLs ap4: 5.9 cm ESV(MOD-sp4): 19.0 ml ESV(sp4-el): 18.5 ml EF(MOD-sp4): 66.8 % EF(sp4-el): 69.4 % LVAd ap2: 20.3 cm2 SV(MOD-sp4): 38.4 ml SV(MOD-sp2): 34.9 ml LVLd ap2: 6.5 cm SI(MOD-sp4): 20.2 ml/m2 SI(MOD-sp2): 18.3 ml/m2 EDV(MOD-sp2): 52.7 ml EDV(sp2-el): 54.0 ml LVAs ap2: 10.6 cm2 LVLs ap2: 5.4 cm ESV(MOD-sp2): 17.8 ml ESV(sp2-el): 17.8 ml EF(MOD-sp2): 66.3 % SV(sp4-el): 41.9 ml Ao sinus diam: 2.[address] Junction: 2.2 cm LA dimension(2D): 4.3 cm LA A4 area: 29.0 cm2 RA A4 area: 11.2 cm2 TAPSE: 1.8 cm Time Measurements MV dec time: 0.14 sec Doppler Measurements & Calculations MV E max jf: 143.6 cm/sec Lat Peak E' Jf: 11.5 cm/sec Med Peak E' Jf: 6.5 cm/sec MV A max jf: 101.2 cm/sec E/E' lat: 12.5 E/E' med: 22.1 MV E/A: 1.4 MV dec slope: 1047 cm/sec2 Ao V2 max: 263.6 cm/sec LV V1 max: 119.3 cm/sec Ao max P.9 mmHg LV V1 max P.7 mmHg Ao V2 mean: 190.9 cm/sec LV V1 mean P.3 mmHg Ao mean P.1 mmHg LV V1 mean: 87.1 cm/sec Ao V2 VTI: 61.7 cm LV V1 VTI: 28.1 cm AV (velocity ratio): 0.46 LYNSEY(I,D): 1.3 cm2 LYNSEY(V,D): 1.3 cm2 SV(LVOT): 79.0 ml PA V2 max: 89.0 cm/sec TR max jf: 321.0 cm/sec TR max P.2 mmHg ECHO/Echo Complete Interpretation Summary Normal LV size. Left ventricular systolic function is normal. The left ventricular ejection fraction is 55 %. The left atrium is moderately enlarged. Moderate (2+) eccentric mitral valve insufficiency. Pulmonary artery systolic pressure is 45 mmHg. The global longitudinal strain is normal. The global longitudinal strain = -18. 5 % (normal). Ordering Physician: Josesito Simmons Referring Physician: Josesito Simmons MD Performed By: Aiyana Stokes RDCS
--- OUTSIDE RECORDS SUMMARY | 2024-08-06 07:23 | XMS RPT_ITS | CCD ---
Author Organization [facility] Care Team Providers Care Director Prospect Name Role Phone Adela Ferrara MD Unavailable Sheets DOAlly Primary Care Provider Mimi FREEMAN, Debora Unavailable Unavailable June [facility], Juliette Unavailable Unavailable Sheets Ally AARON Primary Care Provider Ally Espinosa DO Primary Care Provider [phone] Silvano DOAlly Primary Care Provider [phone] JENELLE CAMPOS Attending Unavailable ALLY ESPINOSA Primary Care Unavailable DEEPIKA HERNÁNDEZ Referring Unavailabl e ALLY ESPINOSA Primary Care Unavailable DEEPIKA HERNÁNDEZ Referring Unavailabl e ALLY ESPINOSA Primary Care Unavailable EARLENE OBREGON Referring Unavailable EDUARDO PATTERSON Admitting Unavailable GAYLA OLIVAS Attending Unavailable DEEPIKA HERNÁNDEZ Consulting Unavailabl e ALLY ESPINOSA Primary Care Unavailable JENELLE CAMPOS Attending Unavailable ALLY ESPINOSA Primary Care Unavailable Sheets DOAlly Primary Care Provider Silvano AARON, Dr. Canales Primary Care Provider Silvano AARON, Dr. Canales Referring Provider Celi DELANEY, Dr. Yanez Attending Provider Celi DELANEY, Dr. Yanez Referring Provider [phone] Dr. Deepika Simmons MD Attending Provider Amanda DELANEY, Dr. Mosqueda Attending Provider Sheets DODr. Canales Attending Provider SHEETS, ALLY C Attending Unavailable SHEETS, ALLY C Primary Care Unavailable SHEETS, ALLY C Attending Unavailable SHEETS, ALLY C Primary Care Unavailable Simmons, Deepika Attending Unavailable Simmons, Deepika Referring Unavailable Sheets, Ally Primary Care Unavailable Sheets, Ally Attending Unavailable Sheets, Ally Referring Unavailable Sheets, Ally Primary Care Unavailable Baddour, Beau Attending Unavailable Sheets, Ally Referring Unavailable Sheets, Ally Primary Care Unavailable Sheets, Ally Primary Care Unavailable Panda Patel Attending Unavailable Baddour, Beau Referring Unavailable Sheets, Ally Primary Care Unavailable Sheets, Ally Referring Unavailable Baddour, Beau Attending Unavailable Troy, Deepika Attending Unavailable Sheets, Ally Referring Unavailable Sheets, Ally Primary Care Unavailable Baddour, Beau Referring Unavailable Sheets, Ally Primary Care Unavailable Baddour, Beau Attending Unavailable Baddour, Beau Referring Unavailable Sheets, Ally Primary Care Unavailable Baddour, Beau Attending Unavailable Baddour, Beau Referring Unavailable Sheets, Ally Primary Care Unavailable Baddour, Beau Attending Unavailable NEHAL CALLE Attending Unavailable SHEETS, ALLY C Primary Care Unavailable BROWN, NEHAL AHMET Referring Unavailable SHEETS, ALLY C Primary Care Unavailable BROWN, NEHAL AHMET Referring Unavailable SHEETS, ALLY C Primary Care Unavailable BROWN, NEHAL AHMET Referring Unavailable SHEETS, ALLY C Primary Care Unavailable BROWN, NEHAL AHMET Referring Unavailable BROWN, NEHAL AHMET Referring Unavailable SHEETS, ALLY C Primary Care Unavailable SHEETS, ALLY C Primary Care Unavailable SHEETS, ALLY C Referring Unavailable SHEETS, ALLY C Primary Care Unavailable SHEETS, ALLY C Referring Unavailable BROWNNEHAL Referring Unavailable SHEETS, ALLY C Primary Care Unavailable BROWNNEHAL Attending Unavailable Allergies Allergy Classification Reported Allergen(s) Allergy Type Date of Onset Reaction(s) Facility Amoxicillin / Clavulanate (1 source) Amoxicillin / Clavulanate Drug Allergy 018 Diarrhea, GI Upset [facility] Aspirin (1 source) Aspirin Drug Allergy 016 Vomiting, Other: See Comments [facility] Cephalosporins (antibiotic) (1 source) cefdinir Drug Allergy 023 Diarrhea, GI Upset, Intolerance, Vomiting [facility] Corticosteroids (1 source) Cortisone Drug Allergy Other: See Comments [facility] Estrogens (1 source) Estrogens Drug Allergy Other: See Comments [facility] Quinolones (antibiotic) (1 source) levoFLOXacin Drug Allergy GI Upset [facility] Serotonin Reuptake Inhibitors (SSRIs) (2 sources) PARoxetine Drug Allergy Other: See Comments, Intolerance [facility] (1 source) Amoxicillin / Clavulanate Drug Allergy 019 nausea, vomiting [facility] Work Phone: (1 source) Erythromycin Drug Allergy 019 nausea, vomiting [facility] Work Phone: (1 source) House dust mite; Translations: [DUST MITES] allergy to substance 019 [facility] Work Phone: (1 source) Ibuprofen Drug Allergy 019 vomiting, bleeding [facility] Work Phone: (1 source) Iodine Drug Allergy 019 hives, vomiting, swelling [facility] Work Phone: (1 source) Kingdom Animalia drug allergy 019 [facility] Work Phone: (1 source) levoFLOXacin Drug Allergy 019 nausea, vomiting [facility] Work Phone: (7 sources) Mold Extract; Translations: [MOLD] Drug Allergy 019 SOB, rash [facility] Work Phone: Comment on above: Mold, animal dander, dust, weeds, hay, grass, tree pollen (20 sources) traZODone; Translations: [TRAZODONE] Drug Allergy 019 Intolerance [facility] Work Phone: (1 source) EXAM DYE drug allergy 019 swelling and rash [facility] Work Phone: (1 source) HORMONES drug allergy 019 bleeding [facility] Work Phone: (1 source) PLANT POLLENS; Translations: [PLANT POLLENS] allergy to substance [facility] Work Phone: (1 source) GENERAL ANESTHETIC drug allergy 019 swelling and rash [facility] Work Phone: (1 source) FLU SHOTS drug allergy 019 swelling and rash [facility] Work Phone: (1 source) CORTISONE ACETATE INJECTIONS drug allergy 019 severe pain and swelling [facility] Work Phone: (1 source) LOCAL ANESTHETIC drug allergy 019 [facility] Work Phone: (20 sources) Amoxicillin / Clavulanate; Translations: [AMOXICILLIN-POT CLAVULANATE] Drug Allergy 018 Diarrhea, GI Upset [facility] (20 sources) Aspirin; Translations: [ASPIRIN] Drug Allergy 016 Vomiting, Other: See Comments [facility] Comment on above: blood in stool (20 sources) Cortisone; Translations: [CORTISONE] Drug Allergy 016 Other: See Comments [facility] (19 sources) Estrogens; Translations: [ESTROGENS] Drug Allergy 016 Other: See Comments [facility] (20 sources) levoFLOXacin; Translations: [LEVOFLOXACIN] Drug Allergy GI Upset [facility] Comment on above: Severe Gastric Distr ess (20 sources) Non-steroidal anti-inflammatory agent; Translations: [NSAIDS (NON-STEROIDAL ANTI-INFLAMMATORY DRUG)] Propensity to adverse reactions to drug 014 Unknown [facility] (20 sources) PARoxetine; Translations: [PAROXETINE HCL] Drug Allergy Other: See Comments [facility] (20 sources) Anesthetics - Amide Type - Select Amino Amides; Translations: [ANESTHETICS - AMIDE TYPE - SELECT AMINO AMIDES] Drug Intolerance Other: See Comments [facility] (20 sources) Bee Venom Protein (Honey Bee); Translations: [BEE VENOM PROTEIN (HONEY BEE)] Drug Allergy Swelling [facility] (20 sources) Propoxyphene N-Acetaminophen; Translations: [PROPOXYPHENE N-ACETAMINOPHEN] Propensity to adverse reactions to drug GI Upset, Vomiting [facility] (20 sources) Influenza Virus Vaccine Whole; Translations: [INFLUENZA VIRUS VACCINE WHOLE] Drug Allergy Unknown [facility] (20 sources) Iodinated Contrast Media; Translations: [IODINATED CONTRAST MEDIA] Drug Allergy Hives, Vomiting [facility] (20 sources) Iodine And Iodide Containing Products; Translations: [IODINE AND IODIDE CONTAINING PRODUCTS] Propensity to adverse reactions to drug Swelling [facility] (20 sources) Spider Venom; Translations: [SPIDER VENOM] Drug Allergy Swelling [facility] (20 sources) Venom-Wasp; Translations: [VENOM-WASP] Drug Allergy Swelling [facility] (20 sources) Estrogens Drug Allergy Other: See Comments [facility] (20 sources) Non-steroidal anti-inflammatory agent Propensity to adverse reactions to drug Unknown [facility] (20 sources) cefdinir; Translations: [CEFDINIR] Drug Allergy Diarrhea, GI Upset, Intolerance, Vomiting [facility] (5 sources) Amoxicillin Drug Allergy Nausea, Vomiting, Diarrhea [facility] Comment on above: Severe Gastric Distr ess (5 sources) atorvastatin Drug Allergy Other [facility] Comment on above: myalgia (5 sources) Clavulanate Drug Allergy Nausea, Vomiting, Diarrhea [facility] Comment on above: Severe Gastric Distr ess (5 sources) Estrogens Drug Allergy Bleeding [facility] (5 sources) Estrogens, Conjugated (HALF-WAY) Drug Allergy Bleeding [facility] (5 sources) Influenza Vaccines Allergy to substance Swelling [facility] Comment on above: SEVERE SWELLING, ORTIZ H, PAIN (5 sources) medroxyPROGESTERone Drug Allergy Bleeding [facility] (5 sources) Nonsteroidal Anti-inflammatory Compounds Allergy to substance Severe Nausea,Vomiti ng, Internal Bleeding [facility] (5 sources) Progesterone Propensity to adverse reactions Bleeding [facility] (5 sources) Triiodobenzoic Acids Allergy to substance vomiting,swel ling,internal and external hives [facility] (6 sources) insect venom; Translations: [insect venom] Allergy to substance Swelling [facility] Comment on above: Bee,Wasp,Spider and insect bites (severe swelling, redness, lengthy healing time). (6 sources) Anesthesia; Translations: [Anesthesia] Allergy to substance Anaphylaxis [facility] Comment on above: becomes aggressive, combative, problems waking up and difficulty breathing (4 sources) Acetaminophen Drug Allergy Vomiting [facility] (4 sources) PARoxetine Drug Allergy Other [facility] Comment on above: weight gain (4 sources) Propoxyphene Drug Allergy Vomiting [facility] (1 source) Acetaminophen Drug Allergy [facility] (1 source) Amoxicillin Drug Allergy [facility] (1 source) Aspirin Drug Allergy [facility] (1 source) atorvastatin Drug Allergy [facility] (1 source) cefdinir Drug Allergy [facility] (1 source) Clavulanate Drug Allergy [facility] (1 source) Cortisone Drug Allergy [facility] (1 source) Estrogens Drug Allergy [facility] (1 source) Estrogens, Conjugated (HALF-WAY) Drug Allergy [facility] (1 source) levoFLOXacin Drug Allergy [facility] (1 source) medroxyPROGESTERone Drug Allergy [facility] (1 source) NSAIDs Drug allergy (disorder) [facility] (1 source) PARoxetine Drug Allergy [facility] (1 source) Progesterone Drug allergy (disorder) [facility] (1 source) Propoxyphene Drug Allergy [facility] (1 source) Iodinated Contrast Media Drug allergy (disorder) [facility] (1 source) Influenza Virus Vaccines Drug allergy (disorder) [facility] Medications Current Medications Medication Drug Class(es) Dates Sig (Normalized) Sig (Original) Acetaminophen (Tylenol Extra Strength) 500 mg powder in packet (5 sources) Start: 10-19-2020 take 1000 mg by mouth every six hours as needed for pain Acetaminophen (Tylenol Extra Strength) 500 mg powder in packet Active 1000 mg PO EVERY 6 HOURS as needed for Pain October 19, 2020 12:00am acetaminophen 325 mg / oxyCODONE hydrochloride 5 mg oral tablet (20 sources) Opioid Agonist Start: 04-18-2022 End: 11-11-2023 take 1 tablet by mouth every six hours as needed for pain oxyCODONE-acetamino phen (PERCOCET) 5-325 mg tablet Indications: Chronic bilateral low back pain without sciatica Take 1 tablet by mouth every 6 hours as needed for pain for up to 90 days. 120 tablet 0 06/22/2023 09/20/2023 Active Start: 03-07-2022 End: 04-06-2022 take 1 tablet by mouth every eight hours as needed for pain oxyCODONE-acetaminophen (PERCOCET) 5-325 mg tablet Indications: Chronic bilateral low back pain without sciatica Take 1 tablet by mouth every 8 hours as needed for pain for up to 30 days. 90 tablet 0 03/07/2022 04/06/2022 Active Start: 01-16-2022 End: 02-15-2022 take 1 tablet by mouth every eight hours as needed for pain oxyCODONE-acetaminophen (PERCOCET) 5-325 mg tablet Indications: Chronic bilateral low back pain without sciatica Take 1 tablet by mouth every 8 hours as needed for pain for up to 30 days. 90 tablet 0 01/16/2022 02/15/2022 Start: 11-16-2020 End: 11-23-2020 Oxycodone-Acetaminophen (Per cocet) 5-325 mg tablet Discontinued 1 {tbl} PO THREE TIMES A DAY as needed for pain (scale score 7-10) 08 09November 16, 2020 November 22, 2020 12:00am November 23, 2020 12:01am Start: 11-01-2020 End: 11-08-2020 Oxycodone-Acetaminophen (Per cocet) 5-325 mg tablet Discontinued 1 {tbl} PO 4 TIMES DAILY as needed for pain (scale score 7-10) 15 09November 01, 2020 November 07, 2020 12:00am November 08, 2020 12:01am Start: 10-21-2020 End: 11-02-2020 Oxycodone-Acetaminophen (Per cocet) 5-325 mg tablet Discontinued 1 {tbl} PO Q4H as needed for pain (scale score 7-10) 40 October 21, 2020 November 02, 2020 1:37pm Comment on above: Take 1 tablet by jeyson th every 8 hours as needed for pain for up to 30 days. Take 1 tablet by jeyson th every 6 hours as needed for pain for up to 90 days. Take 1 tablet by jeyson th every 6 hours as needed for pain. [id number] 200 actuat albuterol 0.09 mg/actuat metered dose inhaler (20 sources) beta2-Adrenergic Agonist Start: 04-26-2021 take 2 puff(s) by inhalation every four hours as needed for wheezing albuterol HFA (PROVENTIL HFA, VENTOLIN HFA) 90 mcg/actuation inhaler Inhale 2 Puffs as instructed every 4 hours as needed for wheezing/shortness of breath. 1 Inhaler 1 04/26/2021 Active Start: 10-19-2020 Albuterol Sulf ate (Ventolin Hfa) 90 mcg/actuation HFA aerosol inhaler Active 2 NMA INHALATION EVERY 6 HOURS as needed for breathing October 19, 2020 12:00am Start: 12-09-2018 VENTOLIN HFA 1 08 (90 Base) MCG/ACT AERS 2 puffs twice daily as needed ALBUTEROL SULFATE [id number] Cande Soni LPN Comment on above: Inhale 2 Puffs as in structed every 4 hours as needed for wheezing/shortness of breath. [facility] (4 sources) Start: 06-20-2024 [facility] Active PO DAILY June 20, 2024 12:00am allopurinol 300 mg oral tablet (20 sources) Xanthine Oxidase Inhibitor Start: 10-19-2020 End: 03-05-2024 allopurinol (ZYLOPRIM) 300 mg tablet Indications: Gout with manifestations TAKE 1 TABLET EVERY DAY 90 tablet 3 03/05/2024 Active Start: 12-09-2018 ALLOPURINOL 30 0 MG TABS 1 tablet daily ALLOPURINOL [id number] Cande Soni LPN Comment on above: TAKE 1 TABLET EVERY DAY Take 1 tablet by jeyson th once daily. aspirin 81 mg delayed release oral tablet (20 sources) Platelet Aggregation Inhibitor, Nonsteroidal Anti-inflammatory Drug Start: 9 Aspirin (Adult Low Dose Aspirin) 81 mg tablet,delayed release (DR/EC) Active 81 mg PO daily June 03, 2024 12:00am Comment on above: Take 81 mg by mouth once daily. benztropine mesylate 0.5 mg oral tablet (3 sources) Anticholinergic, Antihistamine Start: take 1 tablet by mouth once daily, then take 1 tablet by mouth twice daily Benztropine 0.5 mg tablet Active 0 .ROUTE .COMPLEX 60 July 15, 2024 12:00am Take 1 tablet orally daily for 1 week then 1 tablet twice daily thereafter. take 1 tablet by mouth twice hector ly benztropine (COGENTIN) 0.5 mg tablet Take 0.5 mg by mouth two times a day. Active 12 hr buPROPion hydrochloride 150 mg extended release oral tablet (20 sources) Aminoketone Start: 06-20-2024 take 1 tablet by mouth twice daily Bupropion Hcl 150 mg tablet sustained-release 12 hr Active 150 mg PO TWICE A DAY June 20, 2024 12:00am Start: 06-08-2023 End: 07-03-2024 buPROPion SR (WELLBUTRIN SR) 150 mg 12 hr tablet Indications: Obesity, Class I, BMI 30-34.9 TAKE 1 TABLET EVERY MORNING FOR 3 DAYS, THEN 1 TABLET TWO TIMES A DAY. 177 tablet 3 03/19/2024 07/03/2024 Discontinued carbidopa 25 mg / levodopa 100 mg disintegrating oral tablet (7 sources) Aromatic Amino Acid Decarboxylation Inhibitor, Aromatic Amino Acid Start: 07-03-2024 End: 07-26-2024 carbidopa-levodopa orally disintegrating (PARCOPA) 25-100 mg per disintegrating tablet Indications: Other secondary parkinsonism (HCC) Take 1 tablet by mouth three times a day. Take at 8, 2, 8. 07/03/2024 07/26/2024 Discontinued Start: 06-03-2024 End: 07-15-2024 take 1 tablet by mouth once daily, then take 1 tablet by mouth twice daily, then take 1 tablet by mouth three times daily Carbidopa-Levodopa 25-100 mg tablet Discontinued 1 {tbl} PO .COMPLEX 90 June 03, 2024 12:00am July 15, 2024 2:11pm 1 Tab PO daily for one week then 1 tab BID for one week then 1 tab TID thereafter; carboxymethylcellulose sodiu m 10 mg/ml ophthalmic solution (20 sources) Start: 06-03-2024 Carboxymethylc ellulose Sodium (Artificial Tears (Cmc)) 1 % drops Active 1 NMA OPHTHALMIC 4 to 6 times per day as needed June 03, 2024 12:00am carboxymethylcel lulose sodium (ARTIFICIAL TEARS, CMC, OPHTHALMIC) Use in eyes. Active carboxymethylcel lulose sodium (ARTIFICIAL TEARS, C[facility], OPHTHALMIC) Use in eyes. 0 Active Comment on above: Use in eyes. cetirizine hydrochloride 10 mg oral tablet (20 sources) Histamine-1 Receptor Antagonist Start: 10-20-19 take 1 tablet by mouth at bedtime as needed Cetirizine (Zyrtec) 10 mg tablet Active 10 mg PO AT BEDTIME as needed for seasonal allergies October 19, 2020 12:00am Comment on above: Take 10 mg by mouth once daily. Chamomile Flower 150 mg tablet (5 sources) Start: 06-04-19 take 1 tablet by mouth once daily Chamomile Flower 150 mg tablet Active 1100 mg PO daily June 03, 2024 12:00am cholecalciferol 0.125 mg oral capsule (20 sources) Vitamin D Start: 06-04-19 take 1 capsule by mouth once daily Cholecalciferol (Vitamin D3) 125 mcg (5,000 unit) capsule Active 125 ug PO daily June 03, 2024 12:00am Start: 04-19-2021 take 1 tablet by jeyson th once daily cholecalciferol (VITAMIN D) 1,000 unit tab tablet Indications: Vitamin D deficiency Take 1 tablet by mouth once daily. 04/19/2021 Active Start: 10-19-2020 End: 06-03-2024 take 1 capsule by mouth at bedtime Cholecalciferol (Vitamin D3) 350 mcg (14,000 unit) capsule Discontinued 3000 ug PO AT BEDTIME October 19, 2020 12:00am June 03, 2024 9:19am Comment on above: Take 1 tablet by jeyson once daily. chromium synerg (5 sources) Start: 06-04-19 chromium synerg Active 1 NMA PO daily June 03, 2024 12:00am cider vinegar 300 mg oral tablet (5 sources) Start: 06-04-19 take 1 tablet by mouth once daily Apple Cider Vinegar 300 mg tablet Active 3650 mg PO daily June 03, 2024 12:00am cinnamon bark 500 mg oral capsule (4 sources) Start: 06-21-19 take 1 capsule by mouth once daily Cinnamon Bark (Cinnamon) 500 mg capsule Active 500 mg PO daily June 20, 2024 12:00am diphenhydrAMINE hydrochloride 25 mg oral capsule (20 sources) Histamine-1 Receptor Antagonist Start: 06-04-19 take 1 capsule by mouth three times daily as needed Diphenhydramine Hcl (Benadryl) 25 mg capsule Active 25 mg PO THREE TIMES A DAY as needed June 03, 2024 12:00am Start: 12-09-2018 BENADRYL ALLER GY TABS 1 tablet daily DIPHENHYDRAMINE HCL TABS [id number] Cande Soni LPN take 2 tablets by mo uth every twelve hours as needed diphenhydramine HCl (BENADRYL ALLERGY ORAL) Take 2 tablets by mouth every 12 hours as needed. Active take 2 tablets by mo uth every twelve hours as needed diphenhydramine HCl (BENADRYL ALLERGY ORAL) Take 2 tablets by mouth every 12 hours as needed. 0 Active Comment on above: Take 2 tablets by mo uth every 12 hours as needed. diphenhydrAMINE-maalo x-lidocaine (BMX 1:1:1) 1:1:1 liqd (5 sources) Start: 05-31-2021 End: 06-30-2021 take 5 mL by mouth every four hours as needed diphenhydrAMINE-maal ox-lidocaine (BMX 1:1:1) 1:1:1 liqd Indications: Mouth ulcers Take 5 mL by mouth every 4 hours as needed. 120 mL 0 05/31/2021 06/30/2021 Active Comment on above: Take 5 mL by mouth e very 4 hours as needed. docusate sodium 100 mg oral capsule (20 sources) Start: 12-09-2018 take 3 capsules by mouth once daily Docusate Sodium (Colace) 100 mg capsule Active 300 mg PO DAILY October 19, 2020 12:00am Comment on above: Take 300 mg by mouth once daily. doxycycline hyclate 100 mg oral capsule (2 sources) Tetracycline-clas s Drug Start: 06-24-2021 End: 07-04-2021 take 1 capsule by mouth once daily doxycycline hyclate (VIBRAMYCIN) 100 mg capsule Take 1 capsule by mouth once daily for 10 days. 10 capsule 0 06/24/2021 07/04/2021 Active Comment on above: Take 1 capsule by [facility] once daily for 10 days. doxylamine succinate 25 mg oral tablet (5 sources) Start: 06-03-2024 take 2 tablets by mouth at bedtime as needed Doxylamine Succinate 25 mg tablet Active 50 mg PO AT BEDTIME as needed June 03, 2024 12:00am Fluticasone Propion-Salmeterol (20 sources) Corticosteroid, beta2-Adrenergic Agonist Start: 06-03-2024 Fluticasone Propion-Salmeterol 250-50 mcg/dose blister with device Active 1 NMA INHALATION TWICE A DAY June 03, 2024 12:00am Start: 11-20-2023 take 1 puff(s) by in halation twice daily fluticasone-salmeterol (ADVAIR, WIXELA) 250-50 mcg/dose inhaler INHALE 1 PUFF INSTRUCTED TWICE DAILY. 180 Each 3 11/20/2023 Active Start: 10-18-2022 End: 11-20-2023 take 1 puff(s) by inhalation twice daily fluticasone-salmeterol (ADVAIR, WIXELA) 250-50 mcg/dose inhaler INHALE 1 PUFF INSTRUCTED TWICE DAILY. 180 Each 3 10/18/2022 11/20/2023 Discontinued Start: 10-18-2022 take 1 puff(s) by in halation twice daily fluticasone-salmeterol (ADVAIR, WIXELA) 250-50 mcg/dose inhaler INHALE 1 PUFF INSTRUCTED TWICE DAILY. 180 Each 3 10/18/2022 Active Start: 01-10-2022 End: 10-18-2022 take 1 puff(s) by inhalation twice daily fluticasone-salmeterol (ADVAIR, WIXELA) 250-50 mcg/dose inhaler Inhale 1 Puff as instructed twice daily. 3 Each 3 01/10/2022 10/18/2022 Discontinued Start: 01-10-2022 take 1 puff(s) by in halation twice daily fluticasone-salmeterol (ADVAIR, WIXELA) 250-50 mcg/dose inhaler Inhale 1 Puff as instructed twice daily. 3 Each 3 01/10/2022 Active Comment on above: Inhale 1 Puff as ins tructed twice daily. furosemide 40 mg oral tablet (20 sources) Loop Diuretic Start: 06-20-2024 Furosemide (Lasix) 40 mg tablet Active 60 mg PO TWICE A DAY June 20, 2024 12:00am Start: 06-03-2024 End: 06-20-2024 take 1 tablet by mouth twice daily Furosemide 20 mg tablet Discontinued 20 mg PO TWICE A DAY June 03, 2024 12:00am June 20, 2024 1:59pm Start: 05-10-2023 End: 06-20-2024 furosemide (LASIX) 40 mg tab let Indications: Bilateral leg edema TAKE 1 AND 1/2 TABLETS TWICE DAILY 270 tablet 3 03/05/2024 Active Start: 12-15-2022 End: 05-10-2023 take 1.5 tablets by mouth twice daily furosemide (LASIX) 40 mg tablet Indications: Bilateral leg edema Take 1.5 tablets by mouth two times a day. 180 tablet 2 12/15/2022 05/10/2023 Discontinued Start: 05-15-2022 End: 12-15-2022 furosemide (LASIX) 40 mg tab let Indications: Bilateral leg edema TAKE 1 AND 1/2 TABLETS TWICE DAILY 270 tablet 1 05/15/2022 12/15/2022 Discontinued Start: 12-27-2021 End: 05-15-2022 take 1.5 tablets by mouth twice daily furosemide (LASIX) 40 mg tablet Indications: Bilateral leg edema Take 1.5 tablets by mouth twice daily. 270 tablet 1 12/27/2021 05/15/2022 Discontinued Start: 10-13-2021 take 1.5 tablets by mouth twice daily furosemide (LASIX) 40 mg tablet Indications: Bilateral leg edema Take 1.5 tablets by mouth twice daily. 180 tablet 1 10/13/2021 Active Start: 08-18-2021 End: 10-13-2021 furosemide (LASIX) 40 mg tab let Indications: Bilateral leg edema TAKE 1 TABLET TWICE DAILY 180 tablet 1 08/18/2021 10/13/2021 Discontinued Start: 04-19-2021 End: 05-20-2021 take 1 tablet by mouth twice daily furosemide (LASIX) 40 mg tablet Indications: Bilateral leg edema Take 1 tablet by mouth twice daily. 180 tablet 1 05/20/2021 Active Start: 10-19-2020 End: 06-03-2024 take 1 tablet by mouth once daily as needed for edema Furosemide (Lasix) 40 mg tablet Discontinued 40 mg PO DAILY NEEDED as needed for Edema October 19, 2020 12:00am June 03, 2024 9:31am Start: 12-09-2018 LASIX 40 MG TA BS 1 tablet daily FUROSEMIDE [id number] Cande Soni LPN Comment on above: Take 1 tablet by jeyson th twice daily. TAKE 1 TABLET TWICE DAILY Take 1.5 tablets by mouth twice daily. TAKE 1 AND 1/2 TABLE TS TWICE DAILY Take 1.5 tablets by mouth two times a day. Garlic (20 sources) Non-Standardized Food Allergenic Extract Start: 06-03-2024 take 4 capsules by mouth once daily Garlic (Garlic Oil) 1,000 mg capsule Active 4000 mg PO daily June 03, 2024 12:00am Start: 08-01-2023 Garlic (ODORLE SS GARLIC) 300 mg cap 09/19/2022 Active Start: 09-19-2022 Garlic (ODORLE SS GARLIC) 300 mg cap Green Tea [place] Extract capsule (5 sources) Start: 06-03-2024 take 1 capsule by mouth once daily Green Tea [place] Extract capsule Active 1 NMA PO daily June 03, 2024 12:00am 12 hr guaiFENesin 600 mg extended release oral tablet (20 sources) Start: 06-03-2024 take 1 tablet by mouth twice daily, then take 1 tablet by mouth every twelve hours Guaifenesin (Mucinex) 600 mg tablet extended release 12hr Active 600 mg PO TWICE A DAY June 03, 2024 12:00am Start: 04-05-2021 End: 07-03-2024 take 1 tablet by mouth every twelve hours as needed for cough guaiFENesin (MUCINEX) 600 mg 12 hr tablet Take 1 tablet by mouth every 12 hours as needed (cough). 30 tablet 04/05/2021 07/03/2024 Discontinued Comment on above: Take 1 tablet by jeyson th every 12 hours as needed (cough). hydrOXYzine hydrochloride 25 mg oral tablet (20 sources) Antihistamine Start: 10-20-19 21 End: 11-18-19 22 take 1 tablet by mouth three times daily as needed Hydroxyzine Hcl 25 mg tablet Active 25 mg PO THREE TIMES A DAY as needed for antihistamine October 19, 2020 12:00am hydroxyzine HCl (ATARAX ORAL) Indications: ULYSSES (generalized anxiety disorder) Take by mouth. Active hydroxyzine HCl (ATARAX ORAL) Indications: ULYSSES (generalized anxiety disorder) Take by mouth. 0 Active hydroxyzine HCl (ATARAX ORAL) Take by mouth. 0 Active Comment on above: Take 1 tablet by jeyson th three times daily as needed (for itching). Take by mouth. ibandronic acid 150 mg oral tablet (20 sources) Bisphosphonate Start: 1 End: 4 Ibandronate 150 mg tablet Indications: Paget's disease of bone TAKE 1 TABLET ONE TIME PER MONTH 3 tablet 3 07/30/2023 Active Comment on above: TAKE 1 TABLET ONE TI ME PER MONTH ipratropium bromide 0.021 mg/actuat metered dose nasal spray (20 sources) Anticholinergic Start: End: take 1 spray(s) nasal route twice daily Ipratropium [place] (ATROVENT) 21 mcg (0.03 %) nasal spray USE 1 SPRAY NASALLY TWICE DAILY 30 mL 3 05/29/2024 Active Start: 03-28-2021 End: 10-28-2021 Ipratropium [place] (ATROVEN T) 21 mcg (0.03 %) nasal spray USE 1 SPRAY IN THE NOSE TWICE DAILY. 30 mL 2 03/28/2021 10/28/2021 Discontinued Start: 10-19-2020 Ipratropium Br omide 21 mcg (0.03 %) spray,non-aerosol Active 2 NMA INTRANASAL TWICE A DAY October 19, 2020 12:00am administer into each nostril Start: 12-09-2018 IPRATROPIUM BR OMIDE 0.03 % SOLN twice daily as directed IPRATROPIUM BROMIDE [id number] Cande Soni LPN Comment on above: USE 1 SPRAY IN THE N OSE TWICE DAILY. USE 1 SPRAY NASALLY TWICE DAILY 24 hr isosorbide mononitrate 30 mg extended release oral tablet (20 sources) Nitrate Vasodilator Start: 07-24-2024 isosorbide mononitrate ER (IMDUR) 30 mg 24 hr tablet Indications: Hypertension, essential TAKE 1/2 TABLET ONE TIME DAILY 45 tablet 3 07/24/2024 Active Start: 12-27-2021 End: 07-24-2024 take 0.5 tablet by mouth once daily isosorbide mononitrate ER (IMDUR) 30 mg 24 hr tablet Indications: Hypertension, essential Take 0.5 tablets by mouth once daily. 90 tablet 3 06/08/2023 07/24/2024 Discontinued Start: 10-13-2021 take 0.5 tablet by m outh once daily isosorbide mononitrate ER (IMDUR) 30 mg 24 hr tablet Take 0.5 tablets by mouth once daily. 30 tablet 0 10/13/2021 Active Comment on above: Take 0.5 tablets by mouth once daily. l-triptophan (5 sources) Start: 06-03-2024 take 1500 mg by mouth at bedtime l-triptophan Active 1500 mg PO AT BEDTIME June 03, 2024 12:00am magnesium glycinate 100 mg oral tablet (5 sources) Start: 06-03-2024 Magnesium Glycinate 100 mg tablet Active 400 mg PO daily June 03, 2024 12:00am melatonin 10 mg oral capsule (5 sources) Start: 06-03-2024 take 2 capsules by mouth at bedtime as needed Melatonin 10 mg capsule Active 20 mg PO BEDTIME as needed June 03, 2024 12:00am Milk Thistle (11 sources) Start: 10-19-2020 take 1 capsule by mouth once daily Milk Thistle 500 mg capsule Active 500 mg PO DAILY October 19, 2020 12:00am give with meal/snack End: 10-13-2021 take 1 capsule by mouth once daily at bedtime Milk Thistle 500 mg cap Take 1 capsule by mouth daily at bedtime. 0 10/13/2021 Discontinued (Course of therapy completed) take 1 capsule by mo uth once daily at bedtime Milk Thistle 500 mg cap Take 1 capsule by mouth daily at bedtime. 0 Active Comment on above: Take 1 capsule by mo uth daily at bedtime. montelukast 10 mg oral tablet (20 sources) Leukotriene Receptor Antagonist Start: 10-19-2020 End: 02-18-2024 montelukast (SINGULAIR) 10 mg tablet Indications: Seasonal allergies TAKE 1 TABLET AT BEDTIME 90 tablet 3 02/18/2024 Active Start: 12-09-2018 SINGULAIR 10 M G TABS 1 tablet daily MONTELUKAST SODIUM [id number] Cande Soni LPN Comment on above: [facility] TAKE 1 TABLET AT BED TIME [place] 4-Wui-Uqq-Fish Oil 108-162-1,000 mg capsule (5 sources) Start: 10-19-2020 take 108-162 capsules by mouth once daily [place] 2-Dao-Mmw-Fish Oil 108-162-1,000 mg capsule Active 1 NMA PO DAILY October 19, 2020 12:00am omega-3/dha/epa/dp a/fish oil (OMEGA-3 2099 ORAL) (20 sources) omega-3/dha/epa/ dp a/fish oil (OMEGA-3 2099 ORAL) Take by mouth. Active omega-3/dha/epa/ dpa/fish oil (OMEGA-3 2100 ORAL) Take by mouth. 0 Active Comment on above: Take by mouth. omeprazole 20 mg delayed release oral capsule (20 sources) Proton Pump Inhibitor Start: 06-03-2024 take 2 capsules by mouth once daily Omeprazole 20 mg capsule,delayed release(DR/EC) Active 40 mg PO DAILY June 03, 2024 9:13am Start: 05-16-2021 End: 03-05-2024 omeprazole (PRILOSEC) 40 mg capsule Indications: Gastroesophageal reflux disease with esophagitis without hemorrhage TAKE 1 CAPSULE EVERY DAY 90 capsule 3 03/05/2024 Active Start: 05-04-2021 take 1 capsule by mo [facility] once daily omeprazole (PRILOSEC) 40 mg capsule Take 1 capsule by mouth once daily. 30 capsule 11 05/04/2021 Active Start: 10-19-2020 End: 06-03-2024 take 1 capsule by mouth once daily Omeprazole 20 mg capsule,delayed release(DR/EC) Discontinued 20 mg PO DAILY October 19, 2020 12:00am June 03, 2024 9:31am Comment on above: Take 1 capsule by [facility] once daily. TAKE 1 CAPSULE EVERY DAY orlistat 60 mg oral capsule (20 sources) Intestinal Lipase Inhibitor Start: 10-19-2020 take 1 capsule by mouth twice daily 1 hour(s) after mealtime Orlistat (Kusum) 60 mg capsule Active 120 mg PO TWICE A DAY October 19, 2020 12:00am administer during or up to 1 hour after meal take 2 capsules by [facility] twice daily at mealtime Orlistat (KUSUM) 60 mg capsule Indication s: Obesity, Class III, BMI 40-49.9 (morbid obesity) ([facility]) Take 120 mg by mouth twice daily with meals. Active Comment on above: Take 120 mg by mouth twice daily with meals. Oxygen (5 sources) Start: 06-03-2024 Oxygen Active 0 .ROUTE .COMPLEX June 03, 2024 12:00am 3LPM every night; polyethylene glycol 3350 76259 mg powder for oral solution (6 sources) Osmotic Laxative Start: 10-19-2020 Polyethylene Glycol 3350 (Miralax) 17 gram/dose powder Active 17 g PO DAILY October 19, 2020 12:00am Start: 12-09-2018 MIRALAX POWD 1 7gms daily as directed POLYETHYLENE GLYCOL 3350 [id number] Cande Zachariah PERALTA Polyethylene Glycols (20 sources) POLYETHYLENE GLY COL 3350 (MIRALAX ORAL) Take by mouth. Active POLYETHYLENE GLY COL 3350 (MIRALAX ORAL) Take by mouth. 0 Active Comment on above: Take by mouth. microencapsulated potassium chloride 10 meq extended release oral tablet (20 sources) Start: 08-18-2021 End: 03-05-2024 potassium chloride ER (KLOR-CON M10) 10 mEq tablet Indications: Chronic diastolic CHF (congestive heart failure) (HCC) TAKE 2 TABLETS TWICE A DAY 360 tablet 3 03/05/2024 Active Start: 04-19-2021 End: 10-13-2021 take 2 tablets by mouth twice daily potassium chloride (K-TAB) 10 mEq tablet Indications: Bilateral leg edema Take 2 tablets by mouth twice daily. 360 tablet 1 05/20/2021 10/13/2021 Discontinued (Course of therapy completed) Comment on above: Take 2 tablets by [facility] twice daily. TAKE 2 TABLETS TWICE DAILY TAKE 2 TABLETS TWICE A DAY predniSONE 10 mg oral tablet (3 sources) Start: 07-31-2024 predniSONE (DELTASONE) 10 mg tablet Take two a day for one week then one a day for one week 21 tablet 07/31/2024 Active Start: 03-10-2022 End: 04-18-2022 predniSONE (DELTASONE) 10 mg tablet Take 4 daily for three days, then 3 daily for three days, then 2 daily for three days, then one daily for three days. 30 tablet 0 03/10/2022 04/18/2022 Discontinued Comment on above: Take 4 daily for thr ee days, then 3 daily for three days, then 2 daily for three days, then one daily for three days. promethazine hydrochloride 25 mg oral tablet (5 sources) Phenothiazine Start: 06-04-19 take 1 tablet by mouth every six hours as needed Promethazine 25 mg tablet Active 25 mg PO EVERY 6 HOURS as needed June 03, 2024 12:00am sertraline 50 mg oral tablet (20 sources) Serotonin Reuptake Inhibitor Start: 02-04-20 sertraline (ZOLOFT) 50 mg tablet Indications: ULYSSES (generalized anxiety disorder) TAKE 1 TABLET EVERY DAY 90 tablet 3 02/04/2024 Active Start: 04-16-2023 sertraline (ZO LOFT) 50 mg tablet Indications: ULYSSES (generalized anxiety disorder) take 1 tablet every day 90 tablet 3 04/16/2023 Active Start: 11-22-2021 End: 09-21-2022 sertraline (ZOLOFT) 50 mg ta blet Indications: ULYSSES (generalized anxiety disorder) TAKE 1 TABLET EVERY DAY 90 tablet 0 09/21/2022 Active Start: 10-19-2020 End: 06-03-2024 take 1 tablet by mouth once daily Sertraline 25 mg tablet Discontinued 25 mg PO DAILY October 19, 2020 12:00am June 03, 2024 9:11am Start: 12-09-2018 SERTRALINE HCL 25 MG TABS 1 tablet daily SERTRALINE HCL [id number] Cande Soni LPN Comment on above: TAKE 1 TABLET EVERY DAY Take 1 tablet by jeyson once daily. simvastatin 40 mg oral tablet (20 sources) HMG-CoA Reductase Inhibitor Start: 10-19-2020 End: 03-05-2024 simvastatin (ZOCOR) 40 mg tablet Indications: Hyperlipidemia, unspecified hyperlipidemia type TAKE 1 TABLET AT BEDTIME 90 tablet 3 03/05/2024 Active Start: 12-09-2018 SIMVASTATIN 40 MG TABS 1 tablet daily SIMVASTATIN [id number] Cande Soni LPN Comment on above: TAKE 1 TABLET AT BED TIME Take 1 tablet by jeyson th daily at bedtime. TAKE 1 TABLET EVERY DAY AT BEDTIME tamsulosin hydrochloride 0.4 mg oral capsule (20 sources) alpha-Adrenergic Mitzy Start: 12-04-2022 End: 12-05-2023 tamsulosin (FLOMAX) 0.4 mg Indications: Kidney stones TAKE 1 CAPSULE EVERY DAY 90 capsule 3 12/05/2023 Active Start: 12-27-2020 End: 05-01-2022 tamsulosin (FLOMAX) 0.4 mg I ndications: Kidney stones TAKE 1 CAPSULE EVERY DAY 90 capsule 1 05/01/2022 Active Start: 12-09-2018 FLOMAX 0.4 MG CAPS 1 tablet daily as needed TAMSULOSIN HCL [id number] Cande Soni LPN Comment on above: TAKE 1 CAPSULE EVERY DAY Take 1 capsule by mo [facility] once daily. traMADol hydrochloride 50 mg oral tablet (9 sources) Opioid Agonist Start: 2 End: take 1 tablet by mouth twice daily as needed traMADol (ULTRAM) 50 mg tablet Indications: Peripheral polyneuropathy Take 1 tablet by mouth twice daily as needed for up to 30 days. 180 tablet 0 11/22/2021 12/22/2021 Active Start: 12-09-2018 TRAMADOL HCL 5 0 MG TABS 1 tablet twice daily as needed TRAMADOL HCL [id number] Cande Soni LPN Comment on above: Take 1 tablet by jeyson twice daily as needed for up to 30 days. triamcinolone acetonide 0.001 mg/mg topical ointment (20 sources) Corticosteroid Start: 11-27-2022 End: 01-08-2024 triamcinolone acetonide (KENALOG) 0.1 % ointment APPLY TO AFFECTED AREA TWICE DAILY NEEDED 80 g 11 01/08/2024 Active Start: 01-20-2022 End: 10-12-2022 triamcinolone acetonide (PERFECTO ALOG) 0.1 % ointment APPLY TO AFFECTED AREA TWICE DAILY NEEDED 80 g 0 10/12/2022 Active Start: 12-08-2021 End: 01-20-2022 triamcinolone acetonide (PERFECTO ALOG) 0.1 % ointment Start: 10-20-2021 End: 10-27-2021 triamcinolone acetonide (PERFECTO ALOG) 0.1 % ointment APPLY TO AFFECTED AREA TWICE DAILY NEEDED 80 g 1 10/20/2021 10/27/2021 Active Start: 10-19-2020 Triamcinolone Acetonide 0.1 % ointment Active 1 NMA TOPICAL .prn October 19, 2020 12:00am Start: 12-09-2018 TRIAMCINOLONE ACETONIDE 0.1 % CREA as directed as needed TRIAMCINOLONE ACETONIDE [id number] Cande Soni LPN End: 11-17-2021 TRIAMCINOLONE ACETONIDE TOPI RAFFAELE Indications: Dermatitis Apply 1 % to affected area. 0 11/17/2021 Discontinued (Discontinued by Patient) TRIAMCINOLONE AC ETONIDE TOPICAL Indications: Dermatitis Apply 1 % to affected area. 0 Active Comment on above: Apply 1 % to affecte d area. APPLY TO AFFECTED AR EA TWICE DAILY NEEDED Turmeric extract (4 sources) Start: 06-20-2024 Turmeric 400 mg capsule Active mg PO June 20, 2024 12:00am vitamin b6 100 mg oral tablet (20 sources) Start: 06-03-2024 take 1 tablet by mouth once daily Pyridoxine (Vitamin B6) 100 mg tablet Active 100 mg PO daily June 03, 2024 12:00am Completed/Discontinued Medications Medication Drug Class(es) Dates Sig (Normalized) Sig (Original) acetaminophen 500 mg oral tablet (20 sources) Start: 12-09-2018 TYLENOL EXTRA STRENGTH 500 MG TABS 2 tablets twice daily ACETAMINOPHEN [id number] Cande Soni [employer] take 2 tablets by mouth twice da rajeev Acetaminophen 500 mg cap Take 2 tablets by mouth twice daily. 0 Active Comment on above: Take 2 tablets by mo uth twice daily. acetaminophen 325 mg / HYDROcodone bitartrate 5 mg oral tablet (5 sources) Opioid Agonist Start: End: Hydrocodone-Acetamin ophen 5-325 mg tablet Discontinued 1 {tbl} PO Q8H as needed for Pain October 19, 2020 12:00am November 02, 2020 1:36pm azithromycin 250 mg oral tablet (7 sources) Macrolide Antimicrobial Start: End: azithromycin (ZITHROMAX) 250 mg tablet Take one daily for two weeks 14 tablet 0 02/22/2023 06/08/2023 Discontinued (Other) Comment on above: Take one daily for t wo weeks benzonatate 100 mg oral capsule (16 sources) Non-narcotic Antitussive Start: 022 End: take 1 capsule by mouth every eight hours as needed benzonatate (TESSALON PERLES) 100 mg capsule Take 1 capsule by mouth three times daily as needed. FOR COUGHING. 60 capsule 1 05/06/2021 08/19/2021 Discontinued (Course of therapy completed) Comment on above: Take 1 capsule by mo uth three times daily as needed. FOR COUGHING. [id number]-DHM C TABS (1 source) Start: 019 FBPEHTN-[id number]-TL NC TABS 1 capsule twice daily FBURQOT-[id number]-HX NC TABS [id number] Cande Soni LPN Fdxtmij-Mduboggnm-Asr c tablet (5 sources) Start: End: Hkzetie-Iwdktohzg-Kg nc tablet Discontinued 1 {tbl} PO DAILY October 19, 2020 12:00am June 03, 2024 9:30am clindamycin 300 mg oral capsule (5 sources) Lincosamide Antibacterial Start: End: take 1 capsule by mouth three times daily Clindamycin Hcl 300 mg capsule Discontinued 300 mg PO THREE TIMES A DAY 18 12October 21, 2020 12:00am November 09, 2020 1:52pm ergocalciferol 1.25 mg oral capsule (20 sources) Provitamin D2 Compound Start: take 1 capsule by mouth every week ergocalciferol 50,000 unit capsule (VITAMIN D2, DRISDOL) Indications: Vitamin D deficiency Take 1 capsule by mouth one time a week. Use as directed. 4 capsule 1 01/04/2022 Active Comment on above: Take 1 capsule by mo [facility] one time a week. Use as directed. 30 actuat fluticasone furoate 0.2 mg/actuat / vilanterol 0.025 mg/actuat dry powder inhaler (20 sources) Corticosteroid, beta2-Adrenergic Agonist Start: End: take 1 puff(s) by inhalation once daily BREO ELLIPTA 200-25 mcg/dose inhaler INHALE 1 PUFF ONE TIME DAILY DIRECTED 60 Each 1 12/05/2021 01/10/2022 Discontinued (Cost of medication) Start: 04-26-2021 End: 09-21-2021 fluticasone-vilanterol (BREO ELLIPTA) 200-25 mcg/dose inhaler Inhale 1 Inhalation as instructed once daily. 180 Each 1 04/26/2021 09/21/2021 Discontinued Comment on above: Inhale 1 Inhalation as instructed once daily. INHALE 1 PUFF ONE TI ME DAILY DIRECTED gabapentin 300 mg oral capsule (20 sources) Anti-epileptic Agent Start: 03-02-2021 End: 10-13-2021 gabapentin (NEURONTIN) 300 mg capsule Indications: Peripheral polyneuropathy TAKE 3 CAPSULES EVERY DAY AT BEDTIME 270 capsule 0 08/05/2021 10/13/2021 Discontinued (Course of therapy completed) Start: 11-02-2020 End: 12-02-2020 take 1 capsule by mouth at bedtime for pain, then take 3 capsules by mouth at bedtime for pain, then take 3 capsules by mouth three times daily for pain Gabapentin 100 mg capsule Discontinued 100 - 300 mg PO AT BEDTIME November 02, 2020 12:00am December 01, 2020 12:00am December 02, 2020 12:01am Start with additional 100 mg at bedtime and may work up to additional 300 mg at bedtime (in addition to the previously prescribed 300 mg TID) for burning nerve pain. Start: 10-19-2020 End: 06-03-2024 take 1 capsule by mouth at bedtime Gabapentin 300 mg capsule Discontinued 300 mg PO AT BEDTIME October 19, 2020 12:00am June 03, 2024 9:30am Start: 12-09-2018 GABAPENTIN 600 MG TABS 1 and 1/2 tablet daily GABAPENTIN [id number] Cande Soni LPN Comment on above: TAKE 3 CAPSULES EVER Y DAY AT BEDTIME DEANDRA (ZINGIBER OFFICINALIS) CAPS (20 sources) Start: 12-09-2018 DEANDRA ROOT CAPS 1 capsule daily DEANDRA (ZINGIBER OFFICINALIS) CAPS [id number] Cande Soni LPN End: 01-04-2024 Deandra, Zingiber officinalis , (DEANDRA EXTRACT) 250 mg cap Take 450 mg by mouth once daily. 01/04/2024 Discontinued (Other) Comment on above: Take 450 mg by mouth once daily. lactobacillus acidophilus [id number] unt oral capsule (20 sources) End: 01-04-20 Lactobacillus acidophilus (PROBIOTIC) 10 billion cell cap Take by mouth. Prebiotic 01/04/2024 Discontinued (Other) Comment on above: Take by mouth. Prebi otic LORazepam 0.5 mg oral tablet (20 sources) Benzodiazepine Start: 06-20-19 End: 07-20-19 take 1 tablet by mouth twice daily as needed LORazepam (ATIVAN) 0.5 mg Indications: ULYSSES (generalized anxiety disorder) Take 1 tablet by mouth two times a day as needed for up to 30 days. 60 tablet 06/19/2024 07/19/2024 Start: 06-03-2024 take 2 tablets by mo [facility] at bedtime Lorazepam 0.5 mg tablet Active 1 mg PO AT BEDTIME June 03, 2024 12:00am Start: 05-02-2024 End: 2024 LORazepam (ATIVAN) 0.5 mg Indications: ULYSSES (generalized anxiety disorder) TAKE 1 TABLET TWICE DAILY NEEDED FOR UP TO 30 DAYS 60 tablet 05/02/2024 2024 Active Start: 02-26-2024 End: 03-27-2024 take 1 tablet by mouth twice daily as needed LORazepam (ATIVAN) 0.5 mg Indications: ULYSSES (generalized anxiety disorder) Take 1 tablet by mouth two times a day as needed for up to 30 days. 60 tablet 02/26/2024 03/27/2024 Active Start: 11-20-2023 End: 02-18-2024 take 1 tablet by mouth twice daily as needed LORazepam (ATIVAN) 0.5 mg Indications: Chronic insomnia Take 1 tablet by mouth two times a day as needed for up to 90 days. 180 tablet 11/20/2023 02/18/2024 Active Start: 08-13-2023 End: 11-11-2023 take 1 tablet by mouth twice daily as needed LORazepam (ATIVAN) 0.5 mg Indications: Chronic insomnia Take 1 tablet by mouth two times a day as needed for up to 30 days. 60 tablet 10/12/2023 11/11/2023 Active Start: 07-03-2023 End: 08-02-2023 LORazepam (ATIVAN) 0.5 mg Indications: Chronic insomnia TAKE 1 TABLET TWICE DAILY NEEDED FOR UP TO 30 DAYS 60 tablet 0 07/03/2023 08/02/2023 Active Start: 05-21-2023 End: 06-20-2023 LORazepam (ATIVAN) 0.5 mg Indications: Chronic insomnia TAKE 1 TABLET TWICE DAILY NEEDED FOR UP TO 30 DAYS 60 tablet 0 05/21/2023 06/20/2023 Start: 08-08-2022 End: 09-07-2022 LORazepam (ATIVAN) 0.5 mg Indications: Chronic insomnia TAKE 1 TABLET TWICE DAILY NEEDED FOR UP TO 30 DAYS 60 tablet 0 08/08/2022 09/07/2022 Active Start: 04-18-2022 End: 07-26-2022 take 1 tablet by mouth twice daily as needed LORazepam (ATIVAN) 0.5 mg Indications: Chronic insomnia Take 1 tablet by mouth twice daily as needed for up to 30 days. 60 tablet 0 06/26/2022 07/26/2022 Active Start: 01-16-2022 End: 04-16-2022 take 1 tablet by mouth at bedtime as needed LORazepam (ATIVAN) 0.5 mg Indications: Chronic insomnia Take 1 tablet by mouth at bedtime as needed for up to 90 days. 90 tablet 0 01/16/2022 04/16/2022 Active Start: 12-09-2018 LORAZEPAM 0.5 MG TABS 1 tablet twice daily LORAZEPAM [id number] Cande Soni LPN Comment on above: Take 1 tablet by jeyson th at bedtime as needed for up to 90 days. Take 1 tablet by jeyson th twice daily as needed for up to 90 days. TAKE 1 TABLET TWICE DAILY NEEDED DIRECTED Take 1 tablet by jeyson th twice daily as needed for up to 30 days. TAKE 1 TABLET TWICE DAILY NEEDED FOR UP TO 30 DAYS [facility] [place] NATURAL PRODUCTS (1 source) Start: 9 SUPER SNOOZE CAPS 1 capsule daily [facility] [place] NATURAL PRODUCTS [id number] Cande Soni LPN NASAL DECONGESTANT PE 10 MG ORAL TABLET (PHENYLEPHRINE HCL) (1 source) Start: 9 take 1 tablet by mouth twice daily NASAL DECONGESTANT PE 10 MG ORAL TABLET (PHENYLEPHRINE HCL) 1 tablet twice daily NASAL DECONGESTANT PE 10 MG ORAL TABLET (PHENYLEPHRINE HCL) Cande Soni LPN nystatin [id number] unt/ml oral suspension (20 sources) Polyene Antifungal Start: 2 End: 2 take 5 mL by mouth four times daily as needed nystatin (MYCOSTATIN) 100,000 unit/mL suspension Indications: Thrush Take 5 mL by mouth four times daily as needed. Swish and swallow. 473 mL 1 05/20/2021 10/13/2021 Discontinued (Course of therapy completed) Start: 10-19-2020 End: 06-03-2024 Nystatin 100,000 unit/gram c ream Discontinued 1 NMA TOPICAL DAILY October 19, 2020 12:00am June 03, 2024 9:31am Comment on above: Take 5 mL by mouth f our times daily as needed. Swish and swallow. OTC PRODUCT (20 sources) End: 06-24-2023 OTC PRODUCT Super snooze night time sleep 0 06/24/2023 Discontinued End: 08-19-2021 OTC PRODUCT L tryptophan 0 0 08/19/2021 Discontinued (Patient chooses alternative therapy) OTC PRODUCT L tr yptophan 0 Active OTC PRODUCT Supe r snooze night time sleep 0 Active Comment on above: L tryptophan Super snooze night t katrina sleep pectin/vit B6/mins 4/c.vinegar (APPLE CIDER VINEGAR COMPLEX ORAL) (20 sources) Start: 09-19-2022 End: 01-04-2024 pectin/vit B6/mins 4/c.vinegar (APPLE CIDER VINEGAR COMPLEX ORAL) 09/19/2022 01/04/2024 Discontinued (Other) Start: 09-19-2022 pectin/vit B6/ mins 4/c.vinegar (APPLE CIDER VINEGAR COMPLEX ORAL) 09/19/2022 Active Start: 09-19-2022 pectin/vit B6/ mins 4/c.vinegar (APPLE CIDER VINEGAR COMPLEX ORAL) phenylephrine hydrochloride 10 mg oral tablet (5 sources) alpha-1 Adrenergic Agonist Start: 10-19-2020 End: 06-03-2024 take 1 tablet by mouth once Phenylephrine Hcl 10 mg tablet Discontinued 10 mg PO ONCE October 19, 2020 12:00am June 03, 2024 9:31am pramipexole dihydrochloride 0.125 mg oral tablet (12 sources) Nonergot Dopamine Agonist Start: 01-14-2022 End: 04-18-2022 pramipexole (MIRAPEX) 0.125 mg tablet primidone 50 mg oral tablet (20 sources) Anti-epileptic Agent Start: 09-17-2021 End: 01-16-2022 take 2 tablets by mouth once daily at bedtime primidone (MYSOLINE) 50 mg tablet Take 100 mg by mouth daily at bedtime. 0 09/17/2021 01/16/2022 Discontinued Start: 09-17-2021 take 1 tablet by jeyson th once daily at bedtime primidone (MYSOLINE) 50 mg tablet Take 50 mg by mouth daily at bedtime. 0 09/17/2021 Active Comment on above: Take 50 mg by mouth daily at bedtime. Take 100 mg by mouth daily at bedtime. propranolol hydrochloride 40 mg oral tablet (20 sources) beta-Adrenergic Mitzy Start: 2 End: 2 take 1 tablet by mouth twice daily propranolol (INDERAL) 40 mg tablet Indications: Hypertension, essential Take 1 tablet by mouth twice daily. 0 04/19/2021 10/13/2021 Discontinued (Course of therapy completed) Start: 10-19-2020 End: 06-03-2024 take 1 tablet by mouth once daily Propranolol 40 mg tablet Discontinued 40 mg PO DAILY October 19, 2020 12:00am June 03, 2024 9:31am Start: 12-09-2018 PROPRANOLOL HC L 40 MG TABS 1 tablet twice daily PROPRANOLOL HCL [id number] Cande Soni LPN Comment on above: Take 1 tablet by jeyson th twice daily. regadenoson 0.4 mg injection (LEXISCAN) (2 sources) Start: 11-24-19 End: 11-24-19 regadenoson 0.4 mg injection (LEXISCAN) sodium chloride 0.111 meq/ml nasal spray (20 sources) End: 06-24-19 sodium chloride (SALINE MIST) 0.65 % nasal spray Use 1 [place] in the nose as needed. 0 06/24/2023 Discontinued Comment on above: Use 1 [place] in the n ose as needed. temazepam 30 mg oral capsule (20 sources) Benzodiazepine Start: 10-20-19 End: 06-04-19 take 1 capsule by mouth at bedtime Temazepam 30 mg capsule Discontinued 30 mg PO AT BEDTIME October 19, 2020 12:00am June 03, 2024 9:31am Start: 12-09-2018 TEMAZEPAM 30 M G CAPS 1 capsule daily TEMAZEPAM [id number] Cande Soni LPN Comment on above: Take 1 capsule by mo [facility] at bedtime as needed for up to 90 days. Take 30 mg by mouth daily at bedtime. traZODone hydrochloride 50 mg oral tablet (2 sources) Serotonin Reuptake Inhibitor Start: 2 take 1 tablet by mouth once daily at bedtime as needed, then take 2 tablets by mouth at bedtime as needed traZODone (DESYREL) 50 mg tablet Indications: Insomnia, unspecified type Take 1 tablet by mouth daily at bedtime. May take 2 tablets at bedtime as needed. 60 tablet 2 12/13/2021 Active Comment on above: Take 1 tablet by jeyson th daily at bedtime. May take 2 tablets at bedtime as needed. tryptophan 500 mg oral capsule (5 sources) Start: 1 End: 5 take 1 capsule by mouth at bedtime as needed Tryptophan 500 mg Capsule Discontinued 1000 mg PO AT BEDTIME as needed for mood October 19, 2020 12:00am June 03, 2024 9:31am VITAMIN D-3 TABLET 50MCG (CHOLECALCIFEROL TABS) (1 source) Start: 9 VITAMIN D-3 TABLET 50MCG (CHOLECALCIFEROL TABS) 1 tablet daily VITAMIN D-3 TABLET 50MCG (CHOLECALCIFEROL TABS) Cande Soni LPN Problems Active Problems Problem Classification Problem Date Documented Da te Episodic/Chronic Anxiety disorders (20 sources) Generalized anxiety disorder; Translations: [Generalized anxiety disorder] Onset: 8 09-28-2017 Chronic Asthma (20 sources) Mild intermittent asthma; Translations: [Mild intermittent asthma, uncomplicated] Onset: 0 08-07-2019 Chronic Blindness and vision defects (1 source) Blurring of visual image; Translations: [Other visual disturbances] Episodic Cataract (5 sources) Bilateral cataracts; Translations: [Unspecified cataract] 10-19-2020 Chronic Chronic obstructive pulmonary disease and bronchiectasis (1 source) Chronic obstructive pulmonary disease with (acute) exacerbation; Translations: [COPD with exacerbation (HCC)] Onset: 2 Chronic Congestive heart failure; nonhypertensive (20 sources) Chronic diastolic heart failure; Translations: [Chronic diastolic (congestive) heart failure] Onset: 2 05-08-2021 Chronic Diseases of mouth; excluding dental (1 source) Ulcer of mouth; Translations: [Other forms of stomatitis] Episodic Disorders of lipid metabolism (20 sources) Hyperlipidemia; Translations: [Hyperlipidemia, unspecified] Onset: 6 10-26-2015 Chronic Diverticulosis and diverticulitis (20 sources) Diverticulitis; Translations: [Diverticulitis of intestine, part unspecified, without perforation or abscess without bleeding] Onset: 8 10-31-2017 Chronic E Codes: Fall (5 sources) Falling injury; Translations: [Unspecified fall, initial encounter] 10-20-2020 Episodic Comment on above: at a [employer] lot in [place] Esophageal disorders (20 sources) Gastro-esophageal reflux disease with esophagitis; Translations: [GERD with esophagitis] Onset: 2 04-22-2021 Chronic Essential hypertension (20 sources) Essential hypertension; Translations: [Essential (primary) hypertension] Onset: 1 04-02-2021 Chronic Gout and other crystal arthropathies (20 sources) Gout; Translations: [Gout, unspecified] Onset: 6 10-26-2015 Chronic Headache; including migraine (10 sources) Headache; Translations: [Persistent headaches] 10-19-2020 Episodic Comment on above: left cheek pain seco ndary to hematoma Heart valve disorders (20 sources) Aortic stenosis, non-rheumatic ; Translations: [Nonrheumatic aortic (valve) stenosis] Onset: 2 04-02-2021 Chronic Hypertension with complications and secondary hypertension (20 sources) Hypertensive heart disease with congestive heart failure; Translations: [Hypertensive heart disease with heart failure] Onset: 2 11-18-2021 Chronic Immunizations and screening for infectious disease (2 sources) Patient encounter status; Translations: [Encounter for immunization] Episodic Lung disease due to external agents (20 sources) Extrinsic allergic alveolitis; Translations: [Hypersensitivity pneumonitis due to unspecified organic dust] Onset: 3 Chronic Miscellaneous mental health disorders (20 sources) Chronic insomnia; Translations: [Psychophysiologic insomnia] Onset: 8 08-20-2017 Chronic Mycoses (1 source) Candidiasis of mouth; Translations: [Candidal stomatitis] Episodic Nonspecific chest pain (15 sources) Atypical chest pain; Translations: [Other chest pain] Onset: 2 Episodic Nutritional deficiencies (20 sources) Vitamin D deficiency; Translations: [Vitamin D deficiency, unspecified] Onset: 8 09-28-2017 Chronic Open wounds of extremities (5 sources) Open wound of right hand; Translations: [Unspecified open wound of right hand, sequela] 01-08-2021 Episodic Open wounds of head; neck; and trunk (5 sources) Open wound of face; Translations: [Unspecified open wound of left cheek and temporomandibular area, sequela] 01-08-2021 Episodic Osteoarthritis (20 sources) Degenerative joint disease involving multiple joints; Translations: [Polyosteoarthritis, unspecified] Onset: 8 11-12-2017 Chronic Osteoporosis (5 sources) Osteoporosis; Translations: [Age-related osteoporosis without current pathological fracture] 10-19-2020 Chronic Other aftercare (8 sources) Polypharmacy ; Translations: [Other long term acute care registered nurse (current) drug therapy] 06-20-2024 Episodic Other bone disease and musculoskeletal deformities (20 sources) Osteitis deformans; 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] Onset: 8 02-15-2021 Chronic Other circulatory disease (11 sources) Carotid bruit; Translations: [Other specified symptoms and signs involving the circulatory and respiratory systems] 06-04-2024 Episodic Other circulatory disease (15 sources) History of transient ischemic attack; Translations: [Personal history of transient ischemic attack (TIA), and cerebral infarction without residual deficits] 06-04-2024 Episodic Other circulatory disease (1 source) Personal history of transient ischemic attack (TIA), and cerebral infarction without residual deficits; Translations: [Personal history of transient ischemic attack (TIA), and cerebral infarction without residual deficits] Onset: 5 Episodic Other circulatory disease (1 source) Other specified symptoms and signs involving the circulatory and respiratory systems; Translations: [Other specified symptoms and signs involving the circulatory and respiratory systems] Onset: 5 Episodic Other connective tissue disease (20 sources) History of total knee arthroplasty; Translations: [Presence of left artificial knee joint] Onset: 8 10-24-2017 Chronic Other connective tissue disease (5 sources) Hand pain; Translations: [Pain in right hand] 01-08-2021 Episodic Comment on above: dorsum right hand se condary to hematoma Other connective tissue disease (5 sources) Neuralgia; Translations: [Neuralgia and neuritis, unspecified] 01-08-2021 Episodic Other ear and sense organ disorders (5 sources) Hearing disorder; Translations: [Unspecified hearing loss, unspecified ear] 10-19-2020 Chronic Other gastrointestinal disorders (8 sources) Loose stool; Translations: [Other fecal abnormalities] Onset: 5 07-03-2024 Episodic Other gastrointestinal disorders (1 source) Other fecal abnormalities; Translations: [Loose stools] Onset: 5 Episodic Other injuries and conditions due to external causes (5 sources) Fracture of bone; Translations: [Other injury of unspecified body region, initial encounter] 10-19-2020 Episodic Other injuries and conditions due to external causes (5 sources) Injury of left facial nerve; Translations: [Injury of facial nerve, left side, initial encounter] 10-20-2020 Episodic Comment on above: difficulty elevating left upper lip secondary to the traumatic hematoma left cheek Other lower respiratory disease (20 sources) Fibrosis of lung; Translations: [Pulmonary fibrosis, unspecified] Onset: 2 05-06-2021 Chronic Other lower respiratory disease (6 sources) Interstitial lung disease; Translations: [Interstitial pulmonary disease, unspecified] Chronic Other lower respiratory disease (1 source) Interstitial pulmonary disease, unspecified; Translations: [ILD (interstitial lung disease) (HCC)] Onset: 5 Chronic Other lower respiratory disease (1 source) Hypoxemia; Translations: [Hypoxemia] 12-14-2022 Episodic Other lower respiratory disease (1 source) Cough; Translations: [Subacute cough] 07-31-2024 Episodic Other nervous system disorders (20 sources) Polyneuropathy; Translations: [Polyneuropathy, unspecified] Onset: 8 Chronic Other nervous system disorders (5 sources) Carpal tunnel syndrome; Translations: [Carpal tunnel syndrome, unspecified upper limb] 10-19-2020 Chronic Other nervous system disorders (5 sources) Neuropathy; Translations: [Polyneuropathy, unspecified] 10-19-2020 Chronic Other nervous system disorders (8 sources) Secondary parkinsonism; Translations: [Other secondary parkinsonism] Onset: 5 07-03-2024 Chronic Other nervous system disorders (1 source) Other secondary parkinsonism; Translations: [Other secondary parkinsonism (HCC)] Onset: 5 Chronic Other nervous system disorders (1 source) Polyneuropathy, unspecified; Translations: [Polyneuropathy, unspecified] Onset: 5 Chronic Other nervous system disorders (5 sources) Acute postoperative pain; Translations: [Other acute postprocedural pain] 10-21-2020 Episodic Other nervous system disorders (5 sources) Facial paresthesia; Translations: [Paresthesia of skin] 01-08-2021 Episodic Comment on above: left cheek from kate gertrude over infra-orbital nerve Other nutritional; endocrine; and metabolic disorders (6 sources) Morbid obesity; Translations: [Morbid (severe) obesity due to excess calories] Chronic Other nutritional; endocrine; and metabolic disorders (20 sources) Obese class II; Translations: [Obesity, unspecified] Onset: 0 04-18-2022 Chronic Other nutritional; endocrine; and metabolic disorders (20 sources) Obese class I; Translations: [Obesity, unspecified] Onset: 3 11-14-2022 Chronic Other nutritional; endocrine; and metabolic disorders (11 sources) History of nutritional deficiency; Translations: [Personal history of other endocrine, nutritional and metabolic disease] 06-03-2024 Episodic Other nutritional; endocrine; and metabolic disorders (1 source) Personal history of other endocrine, nutritional and metabolic disease; Translations: [Personal history of other endocrine, nutritional and metabolic disease] Onset: 5 Episodic Other upper respiratory disease (20 sources) Seasonal allergy; Translations: [Other seasonal allergic rhinitis] Onset: 9 11-28-2018 Chronic Parkinson`s disease (1 source) Parkinson`s disease; Translations: [Parkinson's disease without dyskinesia, without mention of fluctuations] Onset: 5 Residual codes; unclassified (20 sources) Hypoxia; Translations: [Idiopathic sleep related nonobstructive alveolar hypoventilation] Onset: 2 05-20-2021 Chronic Residual codes; unclassified (5 sources) Obstructive sleep apnea syndrome; Translations: [Obstructive sleep apnea (adult) (pediatric)] 10-19-2020 Chronic Residual codes; unclassified (1 source) Idiopathic sleep related nonobstructive alveolar hypoventilation; Translations: [Nocturnal hypoxia] Onset: 2 Chronic Residual codes; unclassified (1 source) Insomnia; Translations: [Insomnia, unspecified] Episodic Residual codes; unclassified (3 sources) Localized edema; Translations: [Bilateral leg edema] Onset: 2 Episodic Residual codes; unclassified (5 sources) Edema of lower extremity; Translations: [Localized edema] 10-19-2020 Episodic Residual codes; unclassified (5 sources) Family history of malignant neoplasm of skin; Translations: [Family history of malignant neoplasm of other organs or systems] 10-19-2020 Episodic Respiratory failure; insufficiency; arrest (adult) (20 sources) Chronic hypoxemic respiratory failure; Translations: [Chronic respiratory failure with hypoxia] Onset: 2 Resolved: 4 05-06-2021 Chronic Screening and history of mental health and substance abuse codes (8 sources) Ex-cigarette smoker; Translations: [Personal history of nicotine dependence] Onset: 5 06-21-2023 Episodic Spondylosis; intervertebral disc disorders; other back problems (20 sources) Lumbar spondylosis; Translations: [Degeneration of lumbar intervertebral disc] Onset: 8 12-18-2018 Chronic Spondylosis; intervertebral disc disorders; other back problems (20 sources) Chronic low back pain; Translations: [Chronic low back pain without sciatica] Onset: 6 10-26-2015 Episodic Superficial injury; contusion (20 sources) Hematoma of face; Translations: [Contusion of other part of head, initial encounter] 10-19-2020 Episodic Comment on above: left cheek hematoma dorsum right hand he matoma Unclassified (11 sources) Parkinson's disease; Translations: [Parkinson's disease] 06-04-2024 Chronic Unclassified (5 sources) I50.30 - Unspecified diastolic (congestive) heart failure,I35.0 - Nonrheumatic aortic (valve) stenosis,I34.0 - Nonrheumatic mitral (valve) insufficiency,I10 - Essential (primary) hypertension Unclassified (1 source) Lumbar back pain; Translations: [Lumbar back pain] Onset: 5 Unclassified (1 source) Obesity, Class II, BMI 35-39.9; Translations: [Obesity, Class II, BMI 35-39.9] Onset: 5 Unclassified (2 sources) Obesity, Class I, BMI 30-34.9; Translations: [Obesity, Class I, BMI 30-34.9] Onset: 3 Unclassified (1 source) Low back pain, unspecified; Translations: [Low back pain, unspecified] Onset: 5 Unclassified (1 source) Subacute cough; Translations: [Subacute cough] Onset: 5 Past or Other Problems Problem Classification Problem Date Documented Date Episodic/Chronic Abdominal pain (20 sources) Left flank pain; Translations: [Unspecified abdominal pain] Onset: 09-28-2017 Resolved: 11-18-2021 09-28-2017 Episodic Allergic reactions (20 sources) Inflammatory dermatosis; Translations: [Dermatitis, unspecified] Onset: 11-28-2018 11-28-2018 Episodic Biliary tract disease (20 sources) Gallstone; Translations: [Calculus of gallbladder without cholecystitis without obstruction] Onset: 10-31-2017 11-12-2017 Episodic Calculus of urinary tract (20 sources) Kidney stone; Translations: [Calculus of kidney] Onset: 08-20-2017 08-20-2017 Episodic Coagulation and hemorrhagic disorders (20 sources) Petechiae of skin; Translations: [Spontaneous ecchymoses] Onset: 11-12-2017 Resolved: 07-19-2018 07-19-2018 Episodic Nutritional deficiencies (20 sources) Cobalamin deficiency; Translations: [Deficiency of other specified B group vitamins] Onset: 09-28-2017 09-28-2017 Episodic Other fractures (20 sources) Compression fracture of thoracic spine; Translations: [Wedge compression fracture of unspecified thoracic vertebra, initial encounter for closed fracture] Onset: 11-12-2017 11-12-2017 Episodic Other liver diseases (20 sources) Alkaline phosphatase raised; Translations: [Abnormal levels of other serum enzymes] Onset: 11-01-2015 08-20-2017 Episodic Other lower respiratory disease (20 sources) Multiple nodules of lung; Translations: [Other nonspecific abnormal finding of lung field] Onset: 09-28-2017 09-28-2017 Episodic Other lower respiratory disease (1 source) Hypoxemia; Translations: [Hypoxia] Onset: 04-01-2021 Episodic Other nervous system disorders (20 sources) Tremor; Translations: [Tremor, unspecified] Onset: 01-16-2022 Episodic Other nutritional; endocrine; and metabolic disorders (20 sources) Body mass index 40+ - severely obese; Translations: [Morbid (severe) obesity due to excess calories] Onset: 10-05-2017 Resolved: 11-18-2021 12-18-2018 Chronic Other upper respiratory infections (20 sources) Bacterial sinusitis; Translations: [Chronic sinusitis, unspecified] Onset: 09-28-2017 Resolved: 07-19-2018 07-19-2018 Chronic Residual codes; unclassified (20 sources) Bilateral lower limb edema; Translations: [Localized edema] Onset: 08-20-2017 04-02-2021 Episodic Unclassified (1 source) Problem Unclassified (1 source) Patient encounter status 06-17-2024 Results Test Name Value Interpretation Reference Range Facility [facility] 07-31-2024 CNOV Office Visit (PULMWS ) -- ROSALBA ABEBE ([id number]) 1950 F Date Time Provider Department 07/31/24 2:45 PM NEHAL CALLE PULMWS During your visit today, we recorded the following information about you: Pulse Respiration Blood pressure Weight 65/minute 16/minute 104/62 89.8 kg Height 1.588 m Nehal Calle MD 07/31/2024 4:21 PM Signed . Respiratory [place] Note Patient name: Rosalba Abebe PCP: Ally Espinosa DO CC: Follow-up HPI: Rosalba Abebe 74 year old female former 25 pack year smoker, quitting in 1987 with PMH significant for HTN, fatty liver, asthma, allergies, GERD, HLD, SAM not using CPAP, CHF, and bird fancier's lung. Patient refuses to eliminate birds from her environment. She presents today for follow-up visit. Pulmonary function tests show no decline in her capacity. She states she has been coughing more and over the past several days she has actually been able to expectorate small amounts of sputum with slight discoloration. She denies increased shortness of breath or wheezing. No fevers or chills. Not awaken her from sleep. Has known GERD but is asymptomatic. DATA: PFT: 06/2023: PAST MEDICAL HISTORY Diagnosis Date Anemia due to vitamin B12 deficiency due to dietary causes Asthma (HCC) Bird fancier's lung (HCC) Bone pain Chest pain possibly cardiac, continue baby aspirin daily Colon cancer screening 06/2016 cologuard test negative Electrocardiogram abnormal order for nuclear stress test to be done at [facility] Essential hypertension continue meds Fatty liver 11/2015 Fibromyalgia GERD (gastroesophageal reflux disease) take pantoprazole first thing in the morning on an empty stomach, at least 1/2 hour before eating Hyperlipidemia Hypersensitivity pneumonitis (HCC) Insomnia Joint pain Kidney stone change tamsulosin to as needed Left flank pain Migraine consider trial of imitrex after stress test is completed and if it is wnl Mini stroke 2016 Morbid obesity (HCC) Multiple joint pain Multiple lacunar infarcts (HCC) Obesity, unspecified Obstructive sleep apnea syndrome Unable to tolerate positive airway pressure 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 STOPS BREATHING DURING SURGERY. Aspirin Vomiting, Other: See Comments Blood in stool , adverse reaction Bee Venom Protein (* Swelling Cefdinir Diarrhea, GI Upset, Intolerance, Vomiting Cortisone Other: See Comments CAUSES PAIN AND BURNING Darvocet-N 100 [Pro* GI Upset, Vomiting Estrogens Other: See Comments ALL HORMONES, HAVE TRIED MANY. GIVES BREAKTHROUGH BLEEDING Influenza Virus Vac* Unknown Iodinated Contrast * Hives, Vomiting ALL DYES Iodine And Iodide C* Swelling Levaquin [Levofloxa* GI Upset E.E.S. Nsaids (Non-Steroid* Unknown Paxil [Paroxetine H* Other: See Comments Weight gain Spider Venom Swelling Trazodone Intolerance Achiness Venom-Wasp Swelling benztropine (COGENTIN) 0.5 mg tablet Take 0.5 mg by mouth two times a day. isosorbide mononitrate ER (IMDUR) 30 mg 24 hr tablet TAKE 1/2 TABLET ONE TIME DAILY Ipratropium Sewell (ATROVENT) 21 mcg (0.03 %) nasal spray USE 1 SPRAY NASALLY TWICE DAILY allopurinol (ZYLOPRIM) 300 mg tablet TAKE 1 TABLET EVERY DAY omeprazole (PRILOSEC) 40 mg capsule TAKE 1 CAPSULE EVERY DAY potassium chloride ER (KLOR-CON M10) 10 mEq tablet TAKE 2 TABLETS TWICE A DAY furosemide (LASIX) 40 mg tablet TAKE 1 AND 1/2 TABLETS TWICE DAILY simvastatin (ZOCOR) 40 mg tablet TAKE 1 TABLET AT BEDTIME montelukast (SINGULAIR) 10 mg tablet TAKE 1 TABLET AT BEDTIME sertraline (ZOLOFT) 50 mg tablet TAKE 1 TABLET EVERY DAY triamcinolone acetonide (KENALOG) 0.1 % ointment APPLY TO AFFECTED AREA TWICE DAILY NEEDED tamsulosin (FLOMAX) 0.4 mg TAKE 1 CAPSULE EVERY DAY fluticasone-salmeterol (ADVAIR, WIXELA) 250-50 mcg/dose inhaler INHALE 1 PUFF INSTRUCTED TWICE DAILY. Ibandronate 150 mg tablet TAKE 1 TABLET ONE TIME PER MONTH Garlic (ODORLESS GARLIC) 300 mg cap pyridoxine, vitamin B6, (VITAMIN B-6) 100 mg tablet hydroxyzine HCl (ATARAX ORAL) Take by mouth. diphenhydramine HCl (BENADRYL ALLERGY ORAL) Take 2 tablets by mouth every 12 hours as needed. carboxymethylcellulose sodium (ARTIFICIAL TEARS, CMC, OPHTHALMIC) Use in eyes. albuterol HFA (PROVENTIL HFA, VENTOLIN HFA) 90 mcg/actuation inhaler Inhale 2 Puffs as instructed every 4 hours as needed for wheezing/shortness of breath. cholecalciferol (VITAMIN D) 1,000 unit tab tablet Take 1 tablet by mouth once daily. (Patient taking differently: Take 1,000 (more content not included)... Normal [facility] LUNG DIFFUSION CAPACITY (CORINE O)on 07-31-2024 LUNG DIFFUSION CAPACITY (DLCO) Marco A [facility] [address] [place] [address] Test Date: 2024-07-31 Pat Name: ROSALBA ABEBE Department: Room: Gender: Female Product Representative: : 1950 Requested By: Order Number: [id number] Reading MD: Nehal Calle MD Interpretive Statements Medications and Allergies were reviewed for possible drug interactions per policy. No contraindications or sensitivities were noted. Meds taken: Advair 5 hours before testing. Current ATS/ERS acceptability and repeatability standards for spirometry met. Start of test and EOFE criteria met. Current ATS/ERS acceptability and repeatability standards for lung volumes met. Current ATS/ERS acceptability and repeatability standards for DLCO met with 2 acceptable maneuvers. IMPRESSION: Spirometry is normal. Decrease in TLC indicates restriction. The diffusing capacity (uncorrected for hemoglobin) is reduced. The kCO (DLCO/VA) reflects a normal transfer/diffusion of CO from the alveolar regions to the blood. Clinical correlation recommended. Electronically Signed On 07-31-2024 16:02:49 EDT by Nehal Calle MD ID: [id number] Name: ROSALBA ABEBE Race: White Ht: 62.50 in Wt: 204.00 lbs Age: 74 Gender: Female : 1950 Dx: Bird fancier's lung Smoking Hx: Non-smoker Doctor: NEHAL CALLE Test Date: 07/31/2024 Site: Tech: Sonia Melissa PRE-BRONCH POST-BRONCH Natalie LLN Pred ULN %Pred ZScore Natalie %Pred %Chg ZScore SPIROMETRY FVC 2.14 1.75 2.51 3.28 85 -0.80 FEV1 1.84 1.34 1.94 2.51 94 -0.28 FEV1/FVC 0.86 0.65 0.79 0.89 109 1.11 FEFMax 6.42 3.46 5.09 6.72 126 1.35 FEF50 3.60 1.27 2.88 4.49 125 0.74 FIF50 4.87 FEF50/FIF50 0.74 90-100 FIVC 2.11 YUA03-29 2.79 0.74 1.67 3.03 167 1.40 ExpiredTime 5.07 TimeToFEFMax 0.11 SVEN 0.09 VolExtrap% 4 LUNG VOLUMES FRC(Pleth) 1.56 1.88 2.64 3.60 59 -2.49 ERV 0.38 0.84 45 RV(Pleth) 1.18 1.14 1.94 2.98 60 -1.56 SVC 2.12 1.75 2.51 3.28 84 -0.84 IC 1.71 1.67 102 TLC(Pleth) 3.27 3.68 4.68 5.81 69 -2.38 RV/TLC(Pleth) 36 29 42 55 86 -0.67 LUNG DIFFUSION DLCOunc 11.06 13.44 17.99 23.62 61 -2.68 DLCOStdPB 10.87 13.44 17.99 23.62 60 -2.77 VA 3.17 3.41 4.28 5.25 73 -2.14 Kco 3.43 3.18 4.18 5.32 82 -1.20 Comments: Medications and Allergies were reviewed for possible drug interactions per policy. No contraindications or sensitivities were noted. Meds taken: Advair 5 hours before testing. Current ATS/ERS acceptability and repeatability standards for spirometry met. Start of test and EOFE criteria met. Current ATS/ERS acceptability and repeatability standards for lung volumes met. Current ATS/ERS acceptability and repeatability standards for DLCO met with 2 acceptable maneuvers. Normal [facility] LUNG VOLUMESon 07-31-2024 LUNG VOLUMES [facility] [address] [place] [address] Test Date: 2024-07-31 Pat Name: ROSALBA ABEBE Department: Room: Gender: Female Product Representative: : 1950 Requested By: Order Number: [id number] Reading MD: Nehal Calle MD Interpretive Statements Medications and Allergies were reviewed for possible drug interactions per policy. No contraindications or sensitivities were noted. Meds taken: Advair 5 hours before testing. Current ATS/ERS acceptability and repeatability standards for spirometry met. Start of test and EOFE criteria met. Current ATS/ERS acceptability and repeatability standards for lung volumes met. Current ATS/ERS acceptability and repeatability standards for DLCO met with 2 acceptable maneuvers. IMPRESSION: Spirometry is normal. Decrease in TLC indicates restriction. The diffusing capacity (uncorrected for hemoglobin) is reduced. The kCO (DLCO/VA) reflects a normal transfer/diffusion of CO from the alveolar regions to the blood. Clinical correlation recommended. Electronically Signed On 07-31-2024 16:02:49 EDT by Nehal Calle MD ID: [id number] Name: ROSALBA ABEBE Race: White Ht: 62.50 in Wt: 204.00 lbs Age: 74 Gender: Female : 1950 Dx: Bird fancier's lung Smoking Hx: Non-smoker Doctor: NEHAL CALLE Test Date: 07/31/2024 Site: Tech: Sonia Melissa PRE-BRONCH POST-BRONCH Natalie LLN Pred ULN %Pred ZScore Natalie %Pred %Chg ZScore SPIROMETRY FVC 2.14 1.75 2.51 3.28 85 -0.80 FEV1 1.84 1.34 1.94 2.51 94 -0.28 FEV1/FVC 0.86 0.65 0.79 0.89 109 1.11 FEFMax 6.42 3.46 5.09 6.72 126 1.35 FEF50 3.60 1.27 2.88 4.49 125 0.74 FIF50 4.87 FEF50/FIF50 0.74 90-100 FIVC 2.11 BGX02-03 2.79 0.74 1.67 3.03 167 1.40 ExpiredTime 5.07 TimeToFEFMax 0.11 SVEN 0.09 VolExtrap% 4 LUNG VOLUMES FRC(Pleth) 1.56 1.88 2.64 3.60 59 -2.49 ERV 0.38 0.84 45 RV(Pleth) 1.18 1.14 1.94 2.98 60 -1.56 SVC 2.12 1.75 2.51 3.28 84 -0.84 IC 1.71 1.67 102 TLC(Pleth) 3.27 3.68 4.68 5.81 69 -2.38 RV/TLC(Pleth) 36 29 42 55 86 -0.67 LUNG DIFFUSION DLCOunc 11.06 13.44 17.99 23.62 61 -2.68 DLCOStdPB 10.87 13.44 17.99 23.62 60 -2.77 VA 3.17 3.41 4.28 5.25 73 -2.14 Kco 3.43 3.18 4.18 5.32 82 -1.20 Comments: Medications and Allergies were reviewed for possible drug interactions per policy. No contraindications or sensitivities were noted. Meds taken: Advair 5 hours before testing. Current ATS/ERS acceptability and repeatability standards for spirometry met. Start of test and EOFE criteria met. Current ATS/ERS acceptability and repeatability standards for lung volumes met. Current ATS/ERS acceptability and repeatability standards for DLCO met with 2 acceptable maneuvers. Normal [facility] No Panel Informationon 07-31 [facility] [address] [place] [address] Test Date: 2024-07-31 Pat Name: ROSALAB ABEBE Department: Room: Gender: Female Product Representative: : 1950 Requested By: Order Number: [id number] Reading MD: Nehal Calle MD Interpretive Statements Medications and Allergies were reviewed for possible drug interactions per policy. No contraindications or sensitivities were noted. Meds taken: Advair 5 hours before testing. Current ATS/ERS acceptability and repeatability standards for spirometry met. Start of test and EOFE criteria met. Current ATS/ERS acceptability and repeatability standards for lung volumes met. Current ATS/ERS acceptability and repeatability standards for DLCO met with 2 acceptable maneuvers. IMPRESSION: Spirometry is normal. Decrease in TLC indicates restriction. The diffusing capacity (uncorrected for hemoglobin) is reduced. The kCO (DLCO/VA) reflects a normal transfer/diffusion of CO from the alveolar regions to the blood. Clinical correlation recommended. 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98 60 -1.56 SVC 2.12 1.75 2.51 3.28 84 -0.84 IC 1.71 1.67 102 TLC(Pleth) 3.27 3.68 4.68 5.81 69 -2.38 RV/TLC(Pleth) 36 29 42 55 86 -0.67 LUNG DIFFUSION DLCOunc 11.06 13.44 17.99 23.62 61 -2.68 DLCOStdPB 10.87 13.44 17.99 23.62 60 -2.77 VA 3.17 3.41 4.28 5.25 73 -2.14 Kco 3.43 3.18 4.18 5.32 82 -1.20 Comments: Medications and Allergies were reviewed for possible drug interactions per policy. No contraindications or sensitivities were noted. Meds taken: Advair 5 hours before testing. Current ATS/ERS acceptability and repeatability standards for spirometry met. Start of test and EOFE criteria met. Current ATS/ERS acceptability and repeatability standards for lung volumes met. Current ATS/ERS acceptability and repeatability standards for DLCO met with 2 acceptable maneuvers. PULMONARY FUNCTION LAB [facility] SPIROMETRY BASELINE ONLYon 0 07-31-2024 DLCO (ml/min/mmHg) 11.06 ml/min/mm H g [facility] DLCO LLN (ml/min/mmHg) 13.44 ml/mi n/mmH g [facility] DLCO PREDICTED (ml/min/mmHg) 17.99 ml/min/mmH g [facility] DLCO ULN (ml/min/mmHg) 23.62 ml/mi n/mmH g [facility] DLCO/VA (ml/min/mmHg/L) 0.03 ml/min/mmH g/L [facility] DLCO/VA PREDICTED (ml/min/mmHg/L) 0.04 ml/min/mmH g/L [facility] DLCO/VAcor (ml/min/mmHg/L) 0.03 ml/min/mmH g/L [facility] DLCOcor (ml/min/mmHg) 10.87 ml/min /mmH g [facility] DLCOcor PREDICTED (ml/min/mmHg) 17.99 ml/min/mmH g [facility] ERV BOX (L) 0.38 L [facility] ERV PREDICTED (L) 0.84 L/S [facility] FEF25% PRE (L/S) 6.31 L/S [facility] WYA10-06% LLN (L/S) 0.74 L/S [facility] OIU93-53% PRE (L/S) 2.79 L/S [facility] AQN14-35% PREDICTED (L/S) 1.67 L/S [facility] FEF75% LLN (L/S) 0.14 L/S [facility] FEF75% PRE (L/S0 0.87 L/S [facility] FEF75% PREDICTED (L/S) 0.38 L/S [facility] FEF75% ULN (L/S) 1.07 L/S [facility] FET PRE (S) 5.07 S [facility] FEV1 LLN (L) 1.34 L [facility] FEV1 PRE (L) 1.84 L [facility] FEV1 PREDICTED (L) 1.94 L [facility] FEV1 ULN (L) 2.51 L [facility] FEV1/FVC LLN (%) 65 % [facility] FEV1/FVC PRE (%) 86 % [facility] FEV1/FVC PREDICTED (%) 79 % Cl [facility] FRC Box (L) 1.56 L [facility] FVC LLN (L) 1.75 L [facility] FVC PRE (L) 2.14 L [facility] FVC PREDICTED (L) 2.51 L [facility] FVC ULN (L) 3.28 L [facility] IC BOX (L) 1.71 L [facility] IC PREDICTED (L) 1.67 L/S [facility] PEF LLN (L/S) 3.46 L/S [facility] PEF PRE (L/S) 6.42 L/S [facility] PEF ULN (L/S) 6.72 L/S [facility] RV Box (L) 1.18 L [facility] RV Box PREDICTED (L) 1.94 L [facility] RV/TLC Box (%) 36 % [facility] RV/TLC Box PREDICTED (%) 42 % [facility] SVC LLN (L) 1.75 L/S [facility] SVC PREDICTED (L) 2.51 L/S [facility] SVC ULN (L) 3.28 L/S [facility] TLC Box (L) 3.27 L [facility] TLC Box PREDICTED (L) 4.68 L [facility] (L) 3.17 L [facility] VA PREDICTED (L) 4.28 L [facility] VC (L) BOX 2.12 L [facility] SPIROMETRY BASELINE ONLY [facility] [address] [address] Test Date: 2024-07-31 Pat Name: ROSALBA ABEBE Department: Room: Gender: Female Product Representative: : 1950 Requested By: Order Number: [id number] Estrellita MD: Nehal Calle MD Interpretive Statements Medications and Allergies were reviewed for possible drug interactions per policy. No contraindications or sensitivities were noted. Meds taken: Advair 5 hours before testing. Current ATS/ERS acceptability and repeatability standards for spirometry met. Start of test and EOFE criteria met. Current ATS/ERS acceptability and repeatability standards for lung volumes met. Current ATS/ERS acceptability and repeatability standards for DLCO met with 2 acceptable maneuvers. IMPRESSION: Spirometry is normal. Decrease in TLC indicates restriction. The diffusing capacity (uncorrected for hemoglobin) is reduced. The kCO (DLCO/VA) reflects a normal transfer/diffusion of CO from the alveolar regions to the blood. Clinical correlation recommended. 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98 60 -1.56 SVC 2.12 1.75 2.51 3.28 84 -0.84 IC 1.71 1.67 102 TLC(Pleth) 3.27 3.68 4.68 5.81 69 -2.38 RV/TLC(Pleth) 36 29 42 55 86 -0.67 LUNG DIFFUSION DLCOunc 11.06 13.44 17.99 23.62 61 -2.68 DLCOStdPB 10.87 13.44 17.99 23.62 60 -2.77 VA 3.17 3.41 4.28 5.25 73 -2.14 Kco 3.43 3.18 4.18 5.32 82 -1.20 Comments: Medications and Allergies were reviewed for possible drug interactions per policy. No contraindications or sensitivities were noted. Meds taken: Advair 5 hours before testing. Current ATS/ERS acceptability and repeatability standards for spirometry met. Start of test and EOFE criteria met. Current ATS/ERS acceptability and repeatability standards for lung volumes met. Current ATS/ERS acceptability and repeatability standards for DLCO met with 2 acceptable maneuvers. FVC_PRE (L) : 2.14 L FVC_PRED (L) : 2.51 L FVC_LLN (L) : 1.75 L FVC_ULN (L) : 3.28 L FEV1_PRE (L) : 1.84 L FEV1_PRED (L) : 1.94 L FEV1_LLN (L) : 1.34 L FEV1_ULN (L) : 2.51 L FEV1/FVC_PRE (%) : 86 % FEV1/FVC_PRED (%) : 79 % FEV1/FVC_LLN (%) : 65 % PGB38_SHD (L/S) : 6.31 L/S RAT50_GVJ (L/S) : 0.87 L/S YVX54_AYFD (L/S) : 0.38 L/S VRO98_OBD (L/S) : 0.14 L/S QCP26_JLD (L/S) : 1.07 L/S GXO71-73%_PRE (L/S) : 2.79 L/S NLY77-46%_PRED (L/S) : 1.67 L/S FDI26-87%_LLN (L/S) : 0.74 L/S PEF_PRE (L/S) : 6.42 L/S PEFMAX_LLN (L/S) : 3.46 L/S PEFMAX_ULN (L/S) : 6.72 L/S VC BOX (L) : 2.12 L SVC_PRED (L) : 2.51 L/S SVC_LLN (L) : 1.75 L/S SVC_ULN (L/S) : 3.28 L/S IC BOX (L) : 1.71 L IC_PRED (L) : 1.67 L/S ERV BOX (L) : 0.38 L ERV_PREDICTED (L) : 0.84 L/S DLCO (ML/MIN/MMHG) : 11.06 ml/min/mmHg DLCO_PRED (ML/MIN/MMHG) : 17.99 ml/min/mmHg DLCO_LLN(ML/MIN/MMHG) : 13.44 ml/min/mmHg DLCO_ULN (ML/MIN/MMHG) : 23.62 ml/min/mmHg FET_PRE (S) : 5.07 S FRC BOX (L) : 1.56 L RV BOX (L) : 1.18 L RV_PLETH_PRED (L) : 1.94 L TLC BOX (L) : 3.27 L TLC_PLETH_PRED (L) : 4.68 L RV/TLC BOX (%) : 36 % RV_TLC_PLETH_PRED (%) : 42 % VA (L) : 3.17 L VA_PRD (L) : 4.28 L DLCO/VA (ML/MIN/MMHG/L) : 0.03 ml/min/mmHg/L DLCO_VA_PRED (L) : 0.04 ml/min/mmHg/L DLCOCOR (ML/MIN/MMHG) : 10.87 ml/min/mmHg DLCOCOR_PRED (ML/MIN/MMHG) : 17.99 ml/min/mmHg DLCO/VACOR (ML/MIN/MMHG/L) : 0.03 ml/min/mmHg/L Normal [facility] L/S Spine Min 4 Viewson 05-2 -2024 L/S Spine Min 4 Views [facility] [address] [place], [place] [address] (132 L/S Spine Min 4 Views MR#: [id number] Acct: [id number] Name: ROSALBA ABEBE Rep #: [id number] : 1950 F 74 From: Kapil Brito MD PCP: Dr. Ally Espinosa DO Status: REG CLI Study: L/S Spine Min 4 Views Date of Exam: 07/15/24 Exam# [id number] Ordering Dr: Ally Espinosa DO PROCEDURE: L/S SPINE MIN 4 VIEWS 07/15/2024 REASON FOR EXAM: LUMBAR BACK PAIN TECHNIQUE: Four views, AP, bilateral oblique and lateral COMPARISON: None available FINDINGS: 5 whw-vff-mlxybmi lumbar vertebral body types identified. Leftward curvature, scoliosis. No definite spondylolysis identified. No fracture identified. Mild step retrolisthesis L1 on L2 and L2 on L3. T12-L1 spondylosis/discogenic change L1-2 mild disc space narrowing L2-3 irsvypqw-eb-wunoog disc space narrowing with degenerative endplate changes L3-4 mild disc space narrowing L4-5 sxtsafef-vh-slnvof appearing disc space narrowing and degenerative endplate changes. Aortoiliac atherosclerotic changes. Lower lumbar facet degenerative changes. Question a heterogeneous appearance of the pelvic bones about the hips and pubic symphysis, can not exclude possibility of a metastatic disease, correlate with history. RAD/L/S Spine Min 4 Views IMPRESSION: Multilevel spondylosis/discogenic change as above. Question a heterogeneous appearance of the pelvic bones about the hips and pubic symphysis, can not exclude possibility of a metastatic disease, correlate with history. Reading Location: [facility] CC: Dr. Ally Espinosa DO Manufacturing Engineer Supervisor: Signed Normal [facility] Thoracic Spine 3 Viewson Thoracic Spine 3 Views [facility] [address] [place] [address] Thoracic Spine 3 Views MR#: [id number] Acct: [id number] Name: ROSALBA ABEBE Rep #: [id number] : 1950 74 From: Rafael Marrero MD PCP: Dr. Ally Espinosa DO Status: REG CLI Study: Thoracic Spine 3 Views Date of Exam: 07/15/24 Exam# [id number] Ordering Dr: Ally Espinosa DO PROCEDURE: THORACIC SPINE 3 VIEWS 07/15/2024 REASON FOR EXAM: MIDLINE THORACIC BACK PAIN TECHNIQUE: Three views of the thoracic spine COMPARISON: None FINDINGS: There is 50% anterior compression the T7 and T8, with 50% anterior compression at T11, 25% anterior compression at T12, with kyphosis. 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 There is no spondylolisthesis. Levoscoliosis of the upper lumbar spine is noted. Osteopenia is present. Vascular calcifications are visible. RAD/Thoracic Spine 3 Views IMPRESSION: There is 50% anterior compression the T7 and T8, with 50% anterior compression at T11, 25% anterior compression at T12, with kyphosis. MRI or bone scan could be helpful to determine chronicity if clinically indicated. 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 Reading Location: [facility] CC: Dr. Ally Espinosa DO Manufacturing Engineer Supervisor: Signed [facility] Office Visit ([place]) -- ANDRAEABBI KENNEYVIA Tricia ([id number]) 1950 F Date Time Provider Department 07/03/24 1:00 PM ALLY ESPINOSA During your visit today, we recorded the following information about you: Pulse Blood pressure Weight Height 80/minute 124/76 89.8 kg 1.588 m Ally Espinosa DO 07/26/2024 8:04 AM Signed Rosalba Thurmanbik is a 74 year old female here for a Medicare wellness visit. She sees Dr. Alatorre, neurologist, in [place] She had an MRI of the brain on 07/01, results not back yet She was started on Sinemet for Parkinsonism She will return to see Dr. Alatorre in 07/15 He is going to consider starting her on cymbalta after he assesses her response to the sinemet She sees Dr. Simmons, [facility] She is going to have stress test and an echocardiogram She had a carotid doppler, results not back yet She has had loose stools She has back pain in the upper and lower back Medicare Health Risk Assessment General Health Fair Exercise: Minutes/Day 0 min Exercise: Days/Week 0 days Alcohol: Daily Use Never Alcohol: Drinks/Day Patient does not drink Alcohol: 6 or more drinks Never Feel off balance Yes Concerns: Teeth/Dentures No Concerns: Sexual function No Troubled by feelings Anxious Frequency: Eating healthy diet Nearly every day ADLs requiring help Sitting or standing; Walking; Driving Safety precautions in home/vehicle Yes Smoke, vape, chews tobacco No Difficulty hearing Yes Difficulty seeing Wears glasses Current Providers Specialists: I have reviewed specialist-related care of the patient in the medical record. Medical/Family history review Reviewed and updated problem list, medical/surgical/family/so cial history, medications, and allergies. Opioid use review Opioid Medications (last 90 days) No data to display Anxiety/Depression screening Recommendation: no further intervention at this time Cognitive screening Mini Cog Score: 2 Cognitive screening reviewed and No further action needed (score 3-5). Functional Observation Was the patient's Timed Up AND Go test unsteady or >= 12 seconds? No Advance Care Planning Surrogate decision maker and/or advance care plan documented Measurements BP 124/76 Pulse 80 Ht 158.8 cm (5' 2.5) Wt 89.8 kg (198 lb) SpO2 97% BMI 35.64 kg/m? Eye exam deferred - sees eye doctor ASSESSMENT/PLAN: 1. Medicare annual wellness visit, subsequent - ICD9: V70.0, ICD10: Z00.00 (primary diagnosis) - Counseled on healthy diet and regular exercise 2. Chronic diastolic CHF (congestive heart failure) (HCC) - ICD9: 428.32, 428.0, ICD10: I50.32 - PARKING FOR HANDICAPPED 3. Loose stools - ICD9: 787.7, ICD10: R19.5 - CRYPTOSPORIDIUM AND GIARDIA ANTIGENS BY EIA - CLOSTRIDIUM DIFFICILE TOXIN BY PCR - ENTERIC BACTERIAL PANEL BY PCR 4. Lumbar back pain - ICD9: 724.2, ICD10: M54.50 - XR LUMBAR PARS DEFECT 4V AP/LAT/BOTH OBL 5. Midline thoracic back pain, unspecified chronicity - ICD9: 724.1, ICD10: M54.6 - XR THORACIC GENERAL 3V AP/LAT/SWIMMERS 6. Nocturnal hypoxia - ICD9: 327.24, ICD10: G47.34 Uses O2 as needed 7. 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 ILD (interstitial lung disease) (HCC) - ICD9: 515, ICD10: J84.9 Uses O2 at night as needed 9. Obesity, Class II, BMI 35-39.9 - ICD9: 278.00, ICD10: E66.812 Lifestyle modification recommended Ally Espinosa, DO Allergies As of Date: 07/03/2024 Noted Allergy Reaction AMOXICILLIN-POT CLAVULANATE 10/04/2017 6 - Diarrhea 8 - GI Upset ANESTHETICS - AMIDE TYPE - SELECT*09/28/2015 14 - Other: See Comments Comments: BECOMES AGGRESSIVE AND COMBATIVE. STOPS BREATHING DURING SURGERY. ASPIRIN 09/28/2015 11 - Vomiting 14 - Other: See Comments Comments: Blood in stool , adverse reaction BEE VENOM PROTEIN (HONEY BEE) 09/06/2020 7 - Swelling CEFDINIR 02/05/2023 6 - Diarrhea 8 - GI Upset 5 - Intolerance 11 - Vomiting CORTISONE 09/28/2015 14 - Other: See Comments Comments: CAUSES PAIN AND BURNING DARVOCET-N 100 (PROPOXYPHENE N-AC*09/28/2015 8 - GI Upset 11 - Vomiting ESTROGENS 09/28/2015 14 - Other: See Comments Comments: ALL HORMONES, HAVE TRIED MANY. GIVES BREAKTHROUGH BLEEDING INFLUENZA VIRUS VACCINE WHOLE 12/03/2017 16 - Unknown IODINATED CONTRAST MEDIA 09/28/2015 4 - Hives 11 - Vomiting Comments: ALL DYES IODINE AND IODIDE CONTAINING PROD*09/28/2015 7 - Swelling LEVAQUIN (LEVOFLOXACIN) 09/28/2015 8 - GI Upset Comments: E.E.S. NSAIDS (NON-STEROIDAL ANTI-INFLAM*03/31/2013 16 - Unknown PAXIL (PAROXETINE HCL) 09/28/2015 14 - Other: See Comments Comments: Weight gain SPIDER VENOM 09/06/2020 7 - Swelling TRAZODONE 12/22/2021 5 - Intolerance Comments: Achiness VENOM-WASP 09/06/2020 7 - Swelling Date Reviewed: 07/03/2024 (more content not included)... Normal [facility] Magnetic resonance imaging r eportOrdered By: Rafael Marrero on 07-03-2024 Study report [facility] [address] [place] [address] Brain without Contrast MR#: [id number] Acct: [id number] Name: ROSALBA ABEBE Rep #: [id number] : 1950 F 74 From: Binh Marrero MD PCP: Dr. Ally Espinosa, DO Status: RE G CLI Study:Brain without Contrast Date of Exam: 07/01/24 Exam# [id number] Ordering Dr: Beau Alatorre MD EXAM: BRAIN WITHOUT CONTRAST CLINICAL HISTORY: HISTORY OF TIA, tremors COMPARISON: None. TECHNIQUE: Multiplanar, multisequence MR images of the brain were obtained without gadolinium contrast material. FINDINGS: No intracranial hemorrhage, mass, mass effect, midline shift or pathologic extra- axial fluid collection. No hydrocephalus. There are scattered foci of abnormal increased T2 and FLAIR signal throughout the deep white matter on the right and left with the largest in the left mid parietal region measuring 0.6 cm, image 17/26, and the largest in the right frontal deep white matter measuring 0.6 cm, image 13/26, with no associated acute restricted diffusion. No areas of restricted diffusion to suggest acute ischemia or infarction. No gradient signal blooming artifacts are identified. No cerebellar tonsillar ectopia. No sellar/suprasellar signal abnormalities. The ocular globes and intraorbital soft tissues are symmetrically unremarkable. There is fluid signal in a portion of the mastoid air cells on the right and left. Mucosal thickening is visible in the left aspect of the sphenoid sinus. MRI/Brain without Contrast IMPRESSION: There is fluid signal in a portion of the mastoid air cells on the right and left. Mucosal thickening is visible in the left aspect of the sphenoid sinus. There are scattered foci of abnormal increased T2 and FLAIR signal throughout the deep white matter on the right and left with the largest in the left mid parietal region measuring 0.6 cm, image 17/26, and the largest in the right frontal deep white matter measuring 0.6 cm, image 13/26, with no associated acute restricted diffusion. This likely represents chronic ischemic changes. Reading Location: [facility] CC: Dr. Ally Espinosa DO; Dr. Beau Alatorre MD ~ Manufacturing Engineer Supervisor: Signed [facility] Brain without Contraston Brain without Contrast [facility] [address] [place], [place] [address] Brain without Contrast MR#: [id number] Acct: [id number] Name: ROSALBA ABEBE Rep #: [id number] : 1950 F 74 From: Rafael Marrero MD PCP: Dr. Ally Espinosa DO Status: REG CLI Study: Brain without Contrast Date of Exam: 07/01/24 Exam# [id number] Ordering Dr: Beau Alatorre MD EXAM: BRAIN WITHOUT CONTRAST CLINICAL HISTORY: HISTORY OF TIA, tremors COMPARISON: None. TECHNIQUE: Multiplanar, multisequence MR images of the brain were obtained without gadolinium contrast material. FINDINGS: No intracranial hemorrhage, mass, mass effect, midline shift or pathologic extra- axial fluid collection. No hydrocephalus. There are scattered foci of abnormal increased T2 and FLAIR signal throughout the deep white matter on the right and left with the largest in the left mid parietal region measuring 0.6 cm, image 17/26, and the largest in the right frontal deep white matter measuring 0.6 cm, image 13/26, with no associated acute restricted diffusion. No areas of restricted diffusion to suggest acute ischemia or infarction. No gradient signal blooming artifacts are identified. No cerebellar tonsillar ectopia. No sellar/suprasellar signal abnormalities. The ocular globes and intraorbital soft tissues are symmetrically unremarkable. There is fluid signal in a portion of the mastoid air cells on the right and left. Mucosal thickening is visible in the left aspect of the sphenoid sinus. MRI/Brain without Contrast IMPRESSION: There is fluid signal in a portion of the mastoid air cells on the right and left. Mucosal thickening is visible in the left aspect of the sphenoid sinus. There are scattered foci of abnormal increased T2 and FLAIR signal throughout the deep white matter on the right and left with the largest in the left mid parietal region measuring 0.6 cm, image 17/26, and the largest in the right frontal deep white matter measuring 0.6 cm, image 13/, with no associated acute restricted diffusion. This likely represents chronic ischemic changes. Reading Location: [facility] CC: Dr. Ally Espinosa DO; Dr. Beau Alatorre MD Manufacturing Engineer Supervisor: Signed Normal [facility] Carotid Duplex Ultrasoundon 06-23-2024 Carotid Duplex Ultrasound [facility] [address] [place] [address] Carotid Duplex Ultrasound 06/23/24 1400 MR#: [id number] Acct: [id number] Name: ROSALBA ABEBE Rep #: [id number] : 1950 74 From: Panda Patel MD Attending Dr: Dr. Beau Alatorre MD Status: R EG CLI Ordering Dr: Beau Alatorre MD Date: 06/23/24 Location: [facility] Sex: F C Admitted: Reason For Study Reason For Study: Rt Carotid Bruit Rt. Velocities/BP Lt. Velocities/BP Prox CCA 59.2/7.6 cm/sec. Prox CCA 57.9/9.3 cm/sec. Mid CCA 69.1/14.2 cm/sec. Mid CCA 82.1/8.5 cm/sec. Dist CCA 58.1/9.8 cm/sec. Dist CCA 54.8/12.0 cm/sec. Prox ICA 65.8/17.5 cm/sec. Prox ICA 63.7/19.5 cm/sec. Mid ICA 94.8/18.1 cm/sec. Mid ICA 82.1/20.8 cm/sec. Dist ICA 90.7/24.4 cm/sec. Dist ICA 101.4/24.8 cm/sec. Rt. ICA/CCA = 1.4. Lt. ICA/CCA = 1.2. Prox ECA 74.8/6.0 cm/sec. Prox ECA 55.7/5.5 cm/sec. Rt. Vert. 32.9/4.3 cm/sec. Lt. Vert. 39.2/9.7 cm/sec. Right Extracranial There is intimal thickening but no significant atherosclerotic plaque noted in the right common carotid artery. There is heterogeneous, irregular atherosclerotic plaque noted in the right internal carotid artery. There is intimal thickening but no significant atherosclerotic plaque noted in the right external carotid artery. Antegrade flow is noted in the right vertebral artery. Left Extracranial There is heterogeneous, irregular atherosclerotic plaque noted in the left common carotid artery. There is heterogeneous, irregular atherosclerotic plaque noted in the left internal carotid artery. There is heterogeneous, irregular atherosclerotic plaque noted in the left external carotid artery. Antegrade flow is noted in the left vertebral artery. Procedure Carotid Duplex 24304. This is a Carotid Duplex examination using B-mode, color flow and specral Doppler. The exam was diagnostic. Exam performed in department. VL/Carotid Duplex Ultrasound Interpretation Summary Mild (<50%) stenosis right extracranial internal carotid. Mild (<50%) stenosis left extracranial internal carotid. Patent and antegrade vertebrals bilaterally. Ordering Physician: Beau Alatorre Referring Physician: Ally Espinosa Performed By: Latrell Delatorre, John 06/23/241737 Date Panda Patel MD CC: Dr. Ally Espinosa DO; Dr. Beau Alatorre MD Date Dictated: 06/23/24 1400 Date Transcribed: 06/23/241737 Manufacturing Engineer Supervisor: Signed Normal [facility] Duplex ultrasound of carotid artery reportOrdered By: Panda Patel on 06-23-2024 Study report [facility] [address] [place] [address] Carotid Duplex Ultrasound 06/23/24 1400 MR#: [id number] Acct: [id number] Name: ROSALBA ABEBE Rep #:[id number] : 1950 74 From: Panda Hinojosa Attending Dr: Dr. Beau Alatorre MD Status: REG CLI Ordering Dr: Beau Alatorre MD Date: 06/23/24 Location: [facility] Sex: F C Admitted: Reason For Study Reason For Study: Rt Carotid Bruit Rt. Velocities/BP Lt. Velocities/BP Prox CCA 59.2/7.6 cm/sec. Prox CCA 57.9/9.3 cm/sec. Mid CCA 69.1/14.2 cm/sec. Mid CCA 82.1/8.5 cm/sec. Dist CCA 58.1/9.8 cm/sec. Dist CCA 54.8/12.0 cm/sec. Prox ICA 65.8/17.5 cm/sec. Prox ICA 63.7/19.5 cm/sec. Mid ICA 94.8/18.1 cm/sec. Mid ICA 82.1/20.8 cm/sec. Dist ICA 90.7/24.4 cm/sec. Dist ICA 101.4/24.8 cm/sec. Rt. ICA/CCA = 1.4. Lt. ICA/CCA = 1.2. Prox ECA 74.8/6.0 cm/sec. Prox ECA 55.7/5.5 cm/sec. Rt. Vert. 32.9/4.3 cm/sec. Lt. Vert. 39.2/9.7 cm/sec. Right Extracranial There is intimal thickening but no significant atherosclerotic plaque noted in the right common carotid artery. There is heterogeneous, irregular atherosclerotic plaque noted in the right internal carotid artery. There is intimal thickening but no significant atherosclerotic plaque noted in the right external carotid artery. Antegrade flow is noted in the right vertebral artery. Left Extracranial There is heterogeneous, irregular atherosclerotic plaque noted in the left common carotid artery. There is heterogeneous, irregular atherosclerotic plaque noted in the left internal carotid artery. There is heterogeneous, irregular atherosclerotic plaque noted in the left external carotid artery. Antegrade flow is noted in the left vertebral artery. Procedure Carotid Duplex 64684. This is a Carotid Duplex examination using B-mode, color flow and specral Doppler. The exam was diagnostic. Exam performed in department. VL/Carotid Duplex Ultrasound Interpretation Summary Mild (<50%) stenosis right extracranial internal carotid. Mild (<50%) stenosis left extracranial internal carotid. Patent and antegrade vertebrals bilaterally. Ordering Physician: Beau Alatorre Referring Physician: Ally Espinosa Performed By: Latrell Delatorre John 06/23/241737 Date _ Panda Patel MD CC: Dr. Ally Espinosa DO; Dr. Beau Alatorre MD ~ Date Dictated: 06/23/24 1400 Date Transcribed: 06/23/241737 Manufacturing Engineer Supervisor: Signed [facility] Work Phone: [phone] Lead EKG performed by [facility] on 06-20-2024 12 Lead EKG performed by [facility] [address] [place] [address] 12 Lead EKG performed by [facility] 06/20/24 1619 MR#: [id number] Acct: [id number] Name: ROSALBA ABEBE Rep #: [id number] : 1950 74 From: Deepika Simmons MD Attending Dr: Dr. Deepika Simmons MD Status: DE P SONAL Ordering Dr: Deepika Simmons MD Date: 06/20/24 Location: [facility] Sex: F C Admitted: [facility]12 Lead EKG performed by [facility] ECG Report Interpretation Sinus Rhythm Voltage criteria for LVH (R(I)+S(III) exceeds 2.50 mV) -Voltage criteria w/o ST/T abnormality may be normal. -Old anterior infarct. - Nonspecific T-abnormality. ABNORMAL Electronically signed on 06/20/2024 at 17:[address] Deepika Simmons [employer] Software Version 8610 06/20/24 1714 Date Deepika Simmons MD CC: Dr. Ally Espinosa, DO Date Dictated: 06/20/241618 Date Transcribed: 06/20/241618 Manufacturing Engineer Supervisor: Signed Normal [facility] Cardiology Visit Reporton Cardiology Visit Report [facility] [address] [facility] [place] [address] OFFICE VISIT Date of Service: 06/20/24 MR#: [id number] Acct: [id number] Name: ROSALBA ABEBE Rep #: [id number] : 1950 Provider: Dr. Deepika weston MD Age/Sex: 74/F Location: [facility] Status: Signed HPI HPI History of Present Illness Details: Patient is a pleasant 74-year-old white female that comes in for new patient visit today. Patient comes in today being referred for history of heart failure with preserved ejection fraction based on echocardiogram from 2021. The patient has a history of obstructive sleep apnea which is untreated due to not withstanding CPAP therapy. She also has a history of hyperlipidemia bilateral lower extremity edema which is controlled with Lasix. The patient reports she has had multiple mini strokes and is being evaluated with carotid ultrasounds next week. She sees Dr. Alatorre for neurology. She has a prominent tremor. The patient is followed at the [facility] for her fibrotic lung disease The patient is now complaining of chest discomfort that comes and goes mainly in the recumbent position is not currently present when she sitting here in the office. The patient is also on an extensive list of medications. ECG done in office today showed sinus rhythm with baseline tremor affect. She has very poor R wave progression across the precordium consistent with a possible old anterior wall infarct. The patient has no prior history of a cardiac event she has had 2 negative stress test in the past the last was in 2021. Intake Vital Signs 06/03/24 08:55 06/20/24 13:55 Height 5 ft 3 in 5 ft 3 in Weight: 197 lb 200 lb BMI 34.9 35.4 BP 103/51 L 122/82 H Blood Pressure Location Lt brachial Lt radial Position Sitting Sitting Respiration 15 18 Pulse 86 83 Pulse Source Monitor Monitor Temp 98.4 F Pulse Oximetry (%) 95 94 Oxygen Delivery Method room air room air Comment 3L of O2 at night Intake Visit Reasons: CHF ([facility]) Pickling Tank Operator Required: No Accompanied by: Self Is patient in pain?: No Allergies amoxicillin (From Augmentin) Allergy (Severe, Verified 06/20/24 13:55) Nausea, Vomiting, Diarrhea clavulanic acid (From Augmentin) Allergy (Severe, Verified 06/20/24 13:55) Nausea, Vomiting, Diarrhea cortisone Allergy (Severe, Verified 06/20/24 13:55) Severe Swelling, Rash, Pain Estrogens Allergy (Severe, Verified 06/20/24 13:55) Bleeding estrogens, conjugated (From Prempro) Allergy (Severe, Verified 06/20/24 13:55) Bleeding Influenza Virus Vaccines Allergy (Severe, Verified 06/20/24 13:55) Swelling insect venom Allergy (Severe, Verified 06/20/24 13:55) Swelling levofloxacin (From Levaquin) Allergy (Severe, Verified 06/20/24 13:55) Nausea, Vomiting, Diarrhea medroxyprogesterone (From Prempro) Allergy (Severe, Verified 06/20/24 13:55) Bleeding NSAIDS (Non-Steroidal Anti-Inflamma Allergy (Severe, Verified 06/20/24 13:55) Severe Nausea,Vomiting, Internal Bleeding Iodinated Contrast Media Allergy (Intermediate, Verified 06/20/24 13:55) vomiting,swelling,internal and external hives mold Allergy (Intermediate, Verified 06/20/24 13:55) SOB, rash Progestins Adverse Reaction (Severe, Verified 06/20/24 13:55) Bleeding trazodone Adverse Reaction (Severe, Verified 06/20/24 13:55) Unable to Sleep , Strange feeling in head acetaminophen (From Darvocet-N 100) Adverse Reaction (Verified 06/20/24 13:55) Vomiting aspirin Adverse Reaction (Verified 06/20/24 13:55) Vomiting atorvastatin Adverse Reaction (Verified 06/20/24 13:55) Other cefdinir Adverse Reaction (Verified 06/20/24 13:55) Diarrhea paroxetine (From Paxil) Adverse Reaction (Verified 06/20/24 13:55) Other propoxyphene (From Darvocet-N 100) Adverse Reaction (Verified 06/20/24 13:55) Vomiting Anesthesia Allergy (Severe, Uncoded 06/20/24 13:55) Anaphylaxis Medications ???Medication ???Instructions ???Recorded ???Confirmed ???Type acetaminophen 500 mg oral powder 1,000 mg PO Q6H PRN Pain 10/19/20 06/20/24 History packet (Tylenol Extra Strength) albuterol sulfate 90 mcg/actuation 2 puff inhalation Q6H PRN breath ing 10/19/20 06/20/24 History aerosol inhaler (Ventolin HFA) allopurinol 300 mg tablet 300 mg PO DAILY gout 10/19/20 05/04/15 History cetirizine 10 mg tablet (Zyrtec) 10 mg PO QHS PRN seasonal allergie s 10/19/20 06/20/24 History docusate sodium 100 mg capsule 300 mg PO DAILY stool softener 06/20/24 History (Colace) hydroxyzine HCl 25 mg tablet 25 mg PO TID PRN antihistamine 06/20/24 History ibandronate 150 mg tablet 150 mg PO QMONTH osteoporosis 09/2106/20/24 History ipratropium bromide 21 mcg (0.03 2 spray intranasal BID congestion 10/19/20 06/20/24 History %) nasal sp (more content not included)... Normal [facility] Gamaliel Lambda Light Chainson 06-09-2024 FR KAPPA LT CHN 19.4 mg/L Normal 3.3-19.4 [facility] Comment on above: Order Comment: Test( s) 684066-Qvz. B1, Whole Bloodwas developed and its performance characteristicsdetermined by [facility]. It has not been cleared or approvedby the Food and Drug Administration. Performed By: #### L 100.0500, L3300.8000, L500.4050, L501.9520, L500.4100, L503.0106, L3130.0010, L3300.0960 ####[facility] [address] [place], [address] FR LAMBDA LT CH 13.7 mg/L Normal 5.7-26.3 [facility] Comment on above: Order Comment: Test( s) 152457-Sqc. B1, Whole Bloodwas developed and its performance characteristicsdetermined by [facility]. It has not been cleared or approvedby the Food and Drug Administration. Performed By: #### L 100.0500, L3300.8000, L500.4050, L501.9520, L500.4100, L503.0106, L3130.0010, L3300.0960 ####[facility] [address] [place], [place], [id number] KAPPA/LAMBDA % 1.42 Normal 0.26-1.65 [facility] Comment on above: Order Comment: Test( s) 214374-Kmg. B1, Whole Bloodwas developed and its performance characteristicsdetermined by [facility]. It has not been cleared or approvedby the Food and Drug Administration. Performed By: #### L 100.0500, L3300.8000, L500.4050, L501.9520, L500.4100, L503.0106, L3130.0010, L3300.0960 ####[facility] [address] [place], [place], [address] Vitamin B1, Thiamineon 06-09 VIT B1 THIAMINE 152.1 nmol/L Normal 66.5-200.0 [facility] Comment on above: Order Comment: Test( s) [id number]-Avu. B1, Whole Bloodwas developed and its performance characteristicsdetermined by [facility]. It has not been cleared or approvedby the Food and Drug Administration. Result Comment: Perf ormed at: - [facility] [id number] Commercial Electrician: Xavier Blount PhD, Phone: [phone] Performed at: [facility] [id number] Commercial Electrician: Angelina Finn MD, Phone: [phone] Performed By: #### L 100.0500, L3300.8000, L500.4050, L501.9520, L500.4100, L503.0106, L3130.0010, L3300.0960 ####[facility] [address] [place], [address] Vitamin D 1,25-Dihydroxyon 0 06-05-2024 VIT D 1,25 DIHY 95.1 pg/mL Abnormal 24.8-81.5 [facility] Comment on above: Result Comment: Perf ormed at: [facility] [id number] Commercial Electrician: Angelina Finn MD, Phone: [phone] Performed By: #### L 100.0500, L3300.8000, L500.4050, L501.9520, L500.4100, L503.0106, L3130.0010, L3300.0960 ####[facility] [address] [place], [place], [address] 1,25-dihydroxyvitamin D3 [Ma ss/Vol]Ordered By: Beau Alatorre on 06-03-2024 Vitamin D 1,25-Dihydroxy 95.1 pg/mL High 24.8-81.5 [facility] Comment on above: Performed at: [facility] [address] [id number] Director: Angelina Finn MD, Phone: [phone] Anion gap in Serum or Plasma Ordered By: Beau Alatorre on 06-03-2024 Anion gap [Moles/Vol] 12 mmol/L 07-03 [facility] BUN/creatinine ratioOrdered By: Beau Alatorre on 06-03-2024 Urea nitrogen/Creatinine [Mass ratio] 19.1 mg/mg 12-08 [facility] Bilirubin, totalOrdered By: Beau Alatorre on 06-03-2024 Bilirubin [Mass/Vol] 0.36 mg/dL 0.00-1.30 [facility] CBC-Complete Blood Cnt No Di ffon 06-03-2024 Erythrocyte distribution width (RBC) [Ratio] 13.8 % Normal 11.6-14.6 [facility] Comment on above: Performed By: #### L 100.0500, L3300.8000, L500.4050, L501.9520, L500.4100, L503.0106, L3130.0010, L3300.0960 #### [facility] [address] [place], [address] Hematocrit (Bld) [Volume fraction] 40.3 % Normal 37-47 [facility] Comment on above: Performed By: #### L 100.0500, L3300.8000, L500.4050, L501.9520, L500.4100, L503.0106, L3130.0010, L3300.0960 #### [facility] [address] [place], [address] Hemoglobin (Bld) [Mass/Vol] 13.3 g/dL Normal 12.0-15.0 [facility] Comment on above: Performed By: #### L 100.0500, L3300.8000, L500.4050, L501.9520, L500.4100, L503.0106, L3130.0010, L3300.0960 #### [facility] [address] [place], [address] MCH (RBC) [Entitic mass] 31.8 pg Normal 27.0-32.0 [facility] Comment on above: Performed By: #### L 100.0500, L3300.8000, L500.4050, L501.9520, L500.4100, L503.0106, L3130.0010, L3300.0960 #### [facility] [address] [place], [address] MCHC (RBC) [Mass/Vol] 33.0 g/dL Normal 32-36 [facility] Comment on above: Performed By: #### L 100.0500, L3300.8000, L500.4050, L501.9520, L500.4100, L503.0106, L3130.0010, L3300.0960 #### [facility] [address] [place], [address] MCV (RBC) [Entitic vol] 96.4 fL Normal 81-99 [facility] Comment on above: Performed By: #### L 100.0500, L3300.8000, L500.4050, L501.9520, L500.4100, L503.0106, L3130.0010, L3300.0960 #### [facility] [address] [place], [address] Platelet mean volume (Bld) [Entitic vol] 10.2 fL Normal 6.2-12.0 [facility] Comment on above: Performed By: #### L 100.0500, L3300.8000, L500.4050, L501.9520, L500.4100, L503.0106, L3130.0010, L3300.0960 #### [facility] [address] [place], [address] Platelets (Bld) [#/Vol] 294 10*3/uL Normal 150-450 [facility] Comment on above: Performed By: #### L 100.0500, L3300.8000, L500.4050, L501.9520, L500.4100, L503.0106, L3130.0010, L3300.0960 #### [facility] [address] [place], [address] RBC (Bld) [#/Vol] 4.18 10*6/uL Low 4.2-5.4 [facility] Comment on above: Performed By: #### L 100.0500, L3300.8000, L500.4050, L501.9520, L500.4100, L503.0106, L3130.0010, L3300.0960 #### [facility] [address] [place], [place], [id number] RDW SD 48.9 fl High 35.1-43.9 [facility] Comment on above: Performed By: #### L 100.0500, L3300.8000, L500.4050, L501.9520, L500.4100, L503.0106, L3130.0010, L3300.0960 #### [facility] [address] [place], [place], [id number] WBC (Bld) [#/Vol] 9.3 10*3/uL Normal 4.4-11.0 [facility] Comment on above: Performed By: #### L 100.0500, L3300.8000, L500.4050, L501.9520, L500.4100, L503.0106, L3130.0010, L3300.0960 #### [facility] [address] [place], [place], [id number] Calculated very low density lipoprotein (VLDL) cholesterol measurementOrdered By: Beau Alatorre on 06-03-2024 Calculated very low density lipoprotein (VLDL) cholesterol measurement 16 mg/dL [facility] VLDL Cholesterol 16 mg/dL [facility] Carbon dioxide, total [Moles /volume] in Central venous bloodOrdered By: Beau Alatorre on 06-03-2024 CO2 [Moles/Vol] 25.1 mmol/L 21.0-32.0 [facility] Chloride assayOrdered By: Ra ozzy Alatorre on 06-03-2024 Chloride [Moles/Vol] 101 mmol/L 98-108 [facility] Comprehensive Metabolic Prof ilon 06-03-2024 Albumin [Mass/Vol] 4.2 g/dL Normal 3.4-4.8 [facility] Comment on above: Performed By: #### L 100.0500, L3300.8000, L500.4050, L501.9520, L500.4100, L503.0106, L3130.0010, L3300.0960 #### [facility] [address] [place], [address] Albumin/Globulin [Mass ratio] 1.3 {ratio} Normal 0.9-2.4 [facility] Comment on above: Performed By: #### L 100.0500, L3300.8000, L500.4050, L501.9520, L500.4100, L503.0106, L3130.0010, L3300.0960 #### [facility] [address] [place], [address] ALK PHOS 98 U/L Normal 35-104 [facility] Comment on above: Performed By: #### L 100.0500, L3300.8000, L500.4050, L501.9520, L500.4100, L503.0106, L3130.0010, L3300.0960 #### [facility] [address] [place], [address] ALT [Catalytic activity/Vol] 16 U/L Normal <=34 [facility] Comment on above: Performed By: #### L 100.0500, L3300.8000, L500.4050, L501.9520, L500.4100, L503.0106, L3130.0010, L3300.0960 #### [facility] [address] [place], [address] AST [Catalytic activity/Vol] 25 U/L Normal <=31 [facility] Comment on above: Performed By: #### L 100.0500, L3300.8000, L500.4050, L501.9520, L500.4100, L503.0106, L3130.0010, L3300.0960 #### [facility] [address] [place], [address] Bilirubin [Mass/Vol] 0.36 mg/dL Normal 0.00-1.30 [facility] Comment on above: Performed By: #### L 100.0500, L3300.8000, L500.4050, L501.9520, L500.4100, L503.0106, L3130.0010, L3300.0960 #### [facility] [address] [place], [address] BUN/CRE 19.1 RATIO Normal 10-20 [facility] Comment on above: Performed By: #### L 100.0500, L3300.8000, L500.4050, L501.9520, L500.4100, L503.0106, L3130.0010, L3300.0960 #### [facility] [address] [place], [address] Calcium [Mass/Vol] 10.0 mg/dL Normal 7.6-11.0 [facility] Comment on above: Performed By: #### L 100.0500, L3300.8000, L500.4050, L501.9520, L500.4100, L503.0106, L3130.0010, L3300.0960 #### [facility] [address] [place], [address] Chloride [Moles/Vol] 101 mmol/L Normal 98-108 [facility] Comment on above: Performed By: #### L 100.0500, L3300.8000, L500.4050, L501.9520, L500.4100, L503.0106, L3130.0010, L3300.0960 #### [facility] [address] [place], [address] CO2 [Moles/Vol] 25.1 mmol/L Normal 21.0-32.0 [facility] Comment on above: Performed By: #### L 100.0500, L3300.8000, L500.4050, L501.9520, L500.4100, L503.0106, L3130.0010, L3300.0960 #### [facility] [address] [place], [address] Creatinine [Mass/Vol] 0.77 mg/dL Normal 0.70-1.20 [facility] Comment on above: Performed By: #### L 100.0500, L3300.8000, L500.4050, L501.9520, L500.4100, L503.0106, L3130.0010, L3300.0960 #### [facility] [address] [place], [place], [id number] (041) GAP 12 Normal 5-15 [facility] Comment on above: Performed By: #### L 100.0500, L3300.8000, L500.4050, L501.9520, L500.4100, L503.0106, L3130.0010, L3300.0960 #### [facility] [address] [place], [place], [id number] ([address] GFR/1.73 sq M.predicted among non-blacks MDRD (S/P/Bld) [Vol rate/Area] 81 mL/min/{1.73_m2} Normal >60 [facility] Comment on above: Result Comment: mL/m in/1.73m2 CKD-EPI Creatinine Equation (2020) Performed By: #### L 100.0500, L3300.8000, L500.4050, L501.9520, L500.4100, L503.0106, L3130.0010, L3300.0960 #### [facility] [address] [place], [address] Globulin (S) [Mass/Vol] 3.3 g/dL Normal 2.2-4.2 [facility] Comment on above: Performed By: #### L 100.0500, L3300.8000, L500.4050, L501.9520, L500.4100, L503.0106, L3130.0010, L3300.0960 #### [facility] [address] [place], [address] Glucose [Mass/Vol] 92 mg/dL Normal 70-99 [facility] Comment on above: Performed By: #### L 100.0500, L3300.8000, L500.4050, L501.9520, L500.4100, L503.0106, L3130.0010, L3300.0960 #### [facility] [address] [place], [address] Potassium [Moles/Vol] 3.9 mmol/L Normal 3.3-5.1 [facility] Comment on above: Performed By: #### L 100.0500, L3300.8000, L500.4050, L501.9520, L500.4100, L503.0106, L3130.0010, L3300.0960 #### [facility] [address] [place], [address] Sodium [Moles/Vol] 138 mmol/L Normal 133-145 [facility] Comment on above: Performed By: #### L 100.0500, L3300.8000, L500.4050, L501.9520, L500.4100, L503.0106, L3130.0010, L3300.0960 #### [facility] [address] [place], [address] T PROT 7.4 g/dL Normal 5.9-8.4 [facility] Comment on above: Performed By: #### L 100.0500, L3300.8000, L500.4050, L501.9520, L500.4100, L503.0106, L3130.0010, L3300.0960 #### [facility] [address] [place], [address] Urea nitrogen [Mass/Vol] 15 mg/dL Normal 4-19 [facility] Comment on above: Performed By: #### L 100.0500, L3300.8000, L500.4050, L501.9520, L500.4100, L503.0106, L3130.0010, L3300.0960 #### [facility] [address] [place], [address] Erythrocyte distribution wid th (RBC) [Ratio]Ordered By: Beau Alatorre on 06-03-2024 Erythrocyte distribution width (RBC) [Entitic vol] 48.9 fL High 35.1-43.9 [facility] Erythrocyte distribution wid th ratioOrdered By: Beau Alatorre on 06-03-2024 Erythrocyte distribution width (RBC) [Ratio] 13.8 % 11.6-14.6 [facility] Erythrocyte distribution wid th standard deviationOrdered By: Beau Alatorre on 06-03-2024 Erythrocyte distribution width (RBC) [Ratio] 48.9 fl High 35.1-43.9 [facility] GFR/1.73 sq M.predicted kevin g non-blacks MDRD (S/P/Bld) [Vol rate/Area]Ordered By: Beau Alatorre 06-03-2024 Estimated GFR (MDRD) Non-Af Amer 81 >60 [facility] Comment on above: mL/min/1.73m2 CKD-EP I Creatinine Equation (2020) Glomerular filtration rate ( GFR) estimation/1.73 sq m using serum, plasma, or whole bOrdered By: Beau Alatorre 06-03-2024 GFR/1.73 sq M.predicted among non-blacks MDRD (S/P/Bld) [Vol rate/Area] 81 mL/min/{1.73_m2} >60 [facility] Comment on above: mL/min/1.73m2 CKD-EP I Creatinine Equation (2020) Hematocrit Auto (Bld) [Volum e fraction]Ordered By: Beau Alatorre on 06-03-2024 Hematocrit (Bld) [Volume fraction] 40.3 % 37-47 [facility] Hemoglobin measurementOrdere d By: Beau Alatorre on 06-03-2024 Hemoglobin (Bld) [Mass/Vol] 13.3 g/dL 12.0-15.0 [facility] Immunoglobulin light chains. kappa [Mass/Vol]Ordered By: Beau Alatorre on 06-03-2024 Free Gamaliel Light Chains, Quant 19.4 mg/L 3.3-19.4 [facility] Immunoglobulin light chains. kappa/Immunoglobulin light chains.lambda (S) [Mass ratio]Ordered By: Beau Alatorre on 06-03-2024 Free Gamaliel/Lambda Light Chain Ratio 1.42 0.26-1.65 [facility] LDL calc ser/plasOrdered By: Beau [facility] on 06-03-2024 Cholesterol in LDL [Mass/Vol] 67 mg/dL [facility] Comment on above: Jgebegecnb=626-391 m g/dL & Higher Jgcz=314 mg/dL or greater LDL Cholesterol, Calculated 67 mg/dL [facility] Comment on above: Xmdcugtzdt=384-275 m g/dL & Higher Pdke=999 mg/dL or greater Laboratory - Chemistry and C hemistry - challengeOrdered By: Beau Alatorre on 06-03-2024 AST [Catalytic activity/Vol] 25 U/L <32 [facility] Lambda free light chain natalie urementOrdered By: Beau [facility] on 06-03-2024 Free Lambda Light Chains, Quant 13.7 mg/L 5.7-26.3 [facility] Lipid Profileon 06-03-2024 CHOL:HDL 1.93 Normal [facility] Comment on above: Performed By: #### L 100.0500, L3300.8000, L500.4050, L501.9520, L500.4100, L503.0106, L3130.0010, L3300.0960 #### [facility] [address] [place], [place], [id number] Cholesterol [Mass/Vol] 173 mg/dL Normal <=200 [facility] Comment on above: Result Comment: Chol esterol level, Desirable <200 mg/dL Borderline high cholesterol 200-239 mg/dL High cholesterol >=240 mg/dL Recommendations of the NCEP Adult Treatment Panel for the following risk-cutoff thresholds for the [place] population. Performed By: #### L 100.0500, L3300.8000, L500.4050, L501.9520, L500.4100, L503.0106, L3130.0010, L3300.0960 #### [facility] [address] [place], [address] Cholesterol in HDL [Mass/Vol] 90 mg/dL Normal [facility] Comment on above: Result Comment: June onal Cholesterol Education Program (NCEP) guidelines: <40 mg/dL: Low HDL-cholesterol (major risk factor for CHD) >= 60 mg/dL: High HDL-cholesterol (negative risk factor for CHD) HDL-cholesterol is affected by a number of factors, e.g. smoking, exercise, hormones, sex and age. Performed By: #### L 100.0500, L3300.8000, L500.4050, L501.9520, L500.4100, L503.0106, L3130.0010, L3300.0960 #### [facility] [address] [place], [address] Cholesterol in LDL [Mass/Vol] 67 mg/dL Normal [facility] Comment on above: Result Comment: Bord ytvkiq=758-604 mg/dL Higher Deno=264 mg/dL or greater Performed By: #### L 100.0500, L3300.8000, L500.4050, L501.9520, L500.4100, L503.0106, L3130.0010, L3300.0960 #### [facility] [address] [place], [address] Cholesterol in VLDL [Mass/Vol] 16 mg/dL Normal 5-40 [facility] Comment on above: Performed By: #### L 100.0500, L3300.8000, L500.4050, L501.9520, L500.4100, L503.0106, L3130.0010, L3300.0960 #### [facility] [address] [place], [address] Triglyceride [Mass/Vol] 82 mg/dL Normal [facility] Comment on above: Result Comment: The drugs N-Acetylcysteine and Metamizole may falsely depress this assay. Normal range: <150 mg/dL Borderline High: 150-199 mg/dL High: 200-499 mg/dL Very High: >500 mg/dL Performed By: #### L 100.0500, L3300.8000, L500.4050, L501.9520, L500.4100, L503.0106, L3130.0010, L3300.0960 #### [facility] [address] [place], [place], [id number] MCV (mean corpuscular volume ) determinationOrdered By: Beau Alatorre on 06-03-2024 MCV (RBC) [Entitic vol] 96.4 fL 81-99 [facility] Mean corpuscular hemoglobin (MCH) determinationOrdered By: Beau Alatorre on 06-03-2024 MCH (RBC) [Entitic mass] 31.8 pg 27.0-32.0 [facility] Mean corpuscular hemoglobin concentration (MCHC) determinationOrdered By: Beau Alatorre on 06-03-2024 MCHC (RBC) [Mass/Vol] 33.0 g/dL 32-36 [facility] Mean platelet volume determi nationOrdered By: Beau Alatorre on 06-03-2024 Platelet mean volume (Bld) [Entitic vol] 10.2 fL 6.2-12.0 [facility] Neurology Visit Reporton Neurology Visit Report [facility] [address], [address] [place] [address] OFFICE VISIT Date of Service: 06/03/24 MR#: [id number] Acct: [id number] Name: ROSALBA ABEBE Tricia Rep #: [id number] : 1950 Provider: Dr. Beau wolfe MD Age/Sex: 74/F Location: [facility] Status: Signed [facility] Chief Complaint: Establish Care Details: History: The patient is a 74-year-old right-handed woman with a past medical history of hypertension, hyperlipidemia, congestive heart failure, nonrheumatic aortic valve stenosis; mitral regurgitation, asthma, pulmonary fibrosis, renal calculi, Paget's disease of bone, anxiety disorder, prediabetes mellitus, obstructive sleep apnea (she did not tolerate CPAP) who presents for evaluation of various symptoms. She has been experiencing burning pain and intermittent pins sensation in the feet. Her pain symptoms are worse at night. She also has numbness in the feet and weakness in the legs that have been present since around 2014. She ambulates with a cane. EMG/nerve conduction studies of the lower extremities reveal a severe sensorimotor polyneuropathy. She tried gabapentin in the past for her neuropathic pain; this was not of benefit. She states that she has been experiencing a tremor in the right hand and to a lesser degree in the left hand since around 2016. Her tremor has worsened over time. Her tremor is worse when she is anxious. She at times experiences a head tremor. Her tremor is present at rest and with action. Her tremor interferes with activities such as writing and using eating utensils. Records indicate that propranolol was tried for her tremor and was not of benefit. Records indicate that primidone was prescribed for her tremor however this was ineffective at a dose of 100 mg daily and caused sedation. Topiramate 25 mg twice daily produced only minimal improvement of her tremor; records indicate that the dose of topiramate was increased to 50 mg twice daily; the patient's response to this changes unknown; she does not take topiramate presently. Pramipexole was also prescribed for her tremor however her response to this medication is unknown; she no longer takes pramipexole. She denies having speech difficulty or swallowing difficulty. She reports that her gait is slow but attributes this to musculoskeletal issues; she has low back pain; she had a lumbar laminectomy and discectomy in 1980. She has had bilateral knee replacements for treatment of osteoarthritis. She states that prior brain imaging studies revealed cerebrovascular disease (an official report is presently not available). She questions whether she may have had a TIA around 2019. She states that she had momentary vertigo at that time. She did not seek medical attention at that time. She takes aspirin 81 mg daily. She takes simvastatin for hyperlipidemia. She has had nearly daily headaches since the . Her headaches vary in location over the calvarium and may be localized frontally, occipitally or temporally. Her headaches are mild to moderate in severity. She has associated photophobia. She does not have associated phonophobia. In years past she had associated nausea but no longer experiences nausea with her headaches. Acetaminophen is of modest benefit. She denies having hearing loss or vision change. She has a history of vitamin D deficiency and vitamin B12 deficiency. She uses supplemental oxygen at night for her pulmonary fibrosis. She takes sertraline for anxiety. She denies having depression. Past Medical History: As above. There is no history of seizure, thyroid disease, or cancer. Social History: She quit smoking tobacco in 1988. There is no history of alcohol abuse. She occasionally uses CBD Gummies for insomnia. She graduated from high school. Family History: There is no family history of cerebral aneurysm, seizure, stroke, Parkinson's disease, or tremor. Review of Systems: As above. The patient has not had any recent fever or rash. She has had an intentional 53 pound weight loss over the past 1-1/2 years. She experiences occasional shortness of breath and chest pain. She has gastroesophageal reflux symptoms. She has had some urinary incontinence that has been occurring since having a hysterectomy. She has some insomnia. She has some anxiety. She denies having depression. Physical Exam: General: Well-developed, well-nourished female in no acute distress. Neuro: The patient is awake and alert and responds appropriately; speech is fluent; language function is within normal limits Cranial nerves: PERRL, 2mm bilaterally; EOMI; visual stevenson are full; visual acuity is 20/40 on the right and 20/25 on the left; she exhibits slight left lower facial weakness; tongue is midline; there are no deficits to pinprick Cerebellar system: No nystagmus or dysmetria Deep tendon reflexes: +1 at the right ankle, absent at the left ankle, knees, (more content not included)... Normal [facility] Platelet countOrdered By: Ra ozzy Alatorre on 06-03-2024 Platelets (Bld) [#/Vol] 294 10*3/uL 150-450 [facility] Potassium (Unsp spec) [Mass/ Vol]Ordered By: Beau Alatorre on 06-03-2024 Potassium [Moles/Vol] 3.9 mmol/L 3.3-5.1 [facility] Potassium measurement (mass/ volume)Ordered By: Beau Alatorre on 06-03-2024 Potassium (Unsp spec) [Mass/Vol] 3.9 mmol/L 3.3-5.1 [facility] RBC Auto (Bld) [#/Vol]Ordere d By: Beau Alatorre on 06-03-2024 RBC (Bld) [#/Vol] 4.18 10*6/uL Low 4.2-5.4 [facility] Screening total cholesterol/ high density lipoprotein (HDL) cholesterol ratioOrdered By: Beau Alatorre on 06-03-2024 Cholesterol.total/Chol esterol in HDL [Mass ratio] 1.93 {ratio} [facility] Serum creatinine measurement (mass/volume)Ordered By: Beau Alatorre on 06-03-2024 Creatinine [Mass/Vol] 0.77 mg/dL 0.70-1.20 [facility] Serum globulin measurementOr dered By: Beau Alatorre 06-03-2024 Globulin (S) [Mass/Vol] 3.3 g/dL 2.2-4.2 [facility] Serum glucose measurement (m ass/volume)Ordered By: Beau Alatorre 06-03-2024 Glucose [Mass/Vol] 92 mg/dL 70-99 [facility] Serum immunoglobulin kappa l ight chains/immunoglobulin lambda light chains mass ratioOrdered By: Beau Alatorre 06-03-2024 Immunoglobulin light chains.kappa/Immunoglo bulin light chains.lambda (S) [Mass ratio] 1.42 0.26-1.65 [facility] Serum or plasma alanine tello otransferase (ALT) measurementOrdered By: Beau Alatorre 06-03-2024 ALT [Catalytic activity/Vol] 16 U/L <35 [facility] Serum or plasma albumin natalie urement (mass/volume)Ordered By: Beau Alatorre 06-03-2024 Albumin [Mass/Vol] 4.2 g/dL 3.4-4.8 [facility] Serum or plasma albumin/glob ulin mass ratioOrdered By: Beau Alatorre 06-03-2024 Albumin/Globulin [Mass ratio] 1.3 {ratio} 0.9-2.4 [facility] Serum or plasma alkaline aiden sphatase measurementOrdered By: Beau Alatorre on 06-03-2024 ALP [Catalytic activity/Vol] 98 U/L 35-104 [facility] Serum or plasma calcitriol m easurement (mass/volume)Ordered By: Beau Alatorre on 06-03-2024 1,25-dihydroxyvitamin D3 [Mass/Vol] 95.1 pg/mL High 24.8-81.5 [facility] Comment on above: Performed at: [address] [id number] Director: Angelina Finn MD, Phone: [phone] Serum or plasma calcium natalie urement (mass/volume)Ordered By: Beau Alatorre on 06-03-2024 Calcium [Mass/Vol] 10.0 mg/dL 7.6-11.0 [facility] Serum or plasma cholesterol in HDL measurement (mass/volume)Ordered By: Beau [facility] on 06-03-2024 Cholesterol in HDL [Mass/Vol] 90 mg/dL >40 [facility] Comment on above: National Cholesterol Education Program (NCEP) guidelines:<40 mg/dL: Low HDL-cholesterol (major risk factor for CHD)>= 60 mg/dL: High HDL-cholesterol (negative risk factor for CHD)HDL-cholesterol is affected by a number of factors, e.g. smoking, exercise, hormones, sex and age. Serum or plasma cholesterol measurement (mass/volume)Ordered By: Beau Alatorre on 06-03-2024 Cholesterol [Mass/Vol] 173 mg/dL <201 [facility] Comment on above: Cholesterol level, D esirable <200 mg/dLBorderline high cholesterol 200-239 mg/dLHigh cholesterol >=240 mg/dLRecommendations of the NCEP Adult Treatment Panel for the following risk-cutoff thresholds for the [place] population. Serum or plasma immunoglobul in kappa light chains measurement (mass/volume)Ordered By: Beau Alatorre on 06-03-2024 Immunoglobulin light chains.kappa [Mass/Vol] 19.4 mg/L 3.3-19.4 [facility] Serum or plasma thiamine corwin surement (mass/volume)Ordered By: Beau Alatorre 06-03-2024 Thiamine [Mass/Vol] 152.1 nmol/L 66.5-200.0 [facility] Comment on above: Performed at: [facility] [address] [id number] Director: Xavier Blount PhD, Phone: [phone] at: [facility] [address] [id number] Director: Angelina Finn MD, Phone: [phone] Serum or plasma urea nitroge n measurement (mass/volume)Ordered By: Beau Alatorre on 06-03-2024 Urea nitrogen [Mass/Vol] 15 mg/dL 4-19 [facility] Sodium levelOrdered By: Keara Alatorre on 06-03-2024 Sodium [Moles/Vol] 138 mmol/L 133-145 [facility] TSH DL <= 0.005 mIU/L QnOrde red By: Beau Alatorre on 06-03-2024 Thyroid Stimulating Hormone (TSH) 2.410 uIU/mL 0.300-4.20 0 [facility] TSH Qn 2.410 uIU/mL 0.300-4.20 0 [facility] Thiamine [Mass/Vol]Ordered B y: Beau Alatorre on 06-03-2024 Whole Blood Vitamin B1 Level 152.1 nmol/L 66.5-200.0 [facility] Comment on above: Performed at: [facility] [address] [id number] Director: Xavier Blount PhD, Phone: [phone] at: [facility] [address] [id number] Director: Angelina Finn MD, Phone: [phone] Thyroid Stim Hormone (TSH)on 06-03-2024 TSH 2.410 uIU/mL Normal 0.300-4.20 0 [facility] Comment on above: Performed By: #### L 100.0500, L3300.8000, L500.4050, L501.9520, L500.4100, L503.0106, L3130.0010, L3300.0960 #### [facility] [address] [place], [place], [id number] Total proteinOrdered By: Jay Alatorre on 06-03-2024 Protein [Mass/Vol] 7.4 g/dL 5.9-8.4 [facility] Triglycerides measurementOrd ered By: Beau Alatorre on 06-03-2024 Triglyceride [Mass/Vol] 82 mg/dL <199 [facility] Comment on above: The drugs N-Acetylcy steine and Metamizole may falsely depress this assay. Normal range: <150 mg/dLBorderline High: 150-199 mg/dLHigh: 200-499 mg/dLVery High: >500 mg/dL Vitamin B12on 06-03-2024 Cobalamin (Vitamin B12) [Mass/Vol] 559 pg/mL Normal 180-914 [facility] Comment on above: Performed By: #### L 100.0500, L3300.8000, L500.4050, L501.9520, L500.4100, L503.0106, L3130.0010, L3300.0960 ####[facility] [address] [place], [place], [id number] Vitamin B12 ser/plasOrdered By: Beau Alatorre on 06-03-2024 Cobalamin (Vitamin B12) [Mass/Vol] 559 pg/mL 180-914 [facility] White blood cell (WBC) count Ordered By: Beau Alatorre on 06-03-2024 WBC (Bld) [#/Vol] 9.3 10*3/uL 4.4-11.0 [facility] Lipid 1996 panelon 4 Cholesterol [Mass/Vol] 167 mg/dL NINF - 200 mg/dL [facility] Comment on above: <200 mg/dL, Desirabl e 200-239 mg/dL, Borderline high >239 mg/dL, High Cholesterol in HDL [Mass/Vol] 80 mg/dL 39 - PINF mg/dL [facility] Comment on above: 40-59 mg/dL, Accepta ble >59 mg/dL, High: Negative risk factor for coronary heart disease <40 mg/dL, Low: Positive risk factor for coronary heart disease Cholesterol in LDL [Mass/Vol] 67 mg/dL NINF - 100 mg/dL [facility] Comment on above: <100 mg/dL, Optimal 100-129 mg/dL, Near optimal/above optimal 130-159 mg/dL, Borderline high 160-189 mg/dL, High >189 mg/dL, Very high Secondary prevention optimal LDL Cholesterol levels are recommended to be < 70 mg/dL Cholesterol in LDL/Cholesterol in HDL [Mass ratio] 0.84 {ratio} NINF - 2.54 [facility] Comment on above: Reference: 1. National Cholesterol Education Program ATP III Guideline At-A-Glance Quick Desk Reference: National Heart, Lung, and Blood [place]. National Institutes of Health. 2001: NIH Publication No. 01-3305. 2. An International Atherosclerosis Society position paper: global recommendations for the management of dyslipidemia: executive summary, Atherosclerosis. 2014: 232(2):410-413. Cholesterol in VLDL [Mass/Vol] 20 mg/dL NINF - 30 mg/dL [facility] Cholesterol non HDL [Mass/Vol] 87 mg/dL NINF - 130 mg/dL [facility] Comment on above: <130 mg/dL, Optimal 130-159 mg/dL, Near optimal/above optimal 160-189 mg/dL, Borderline high 190-219 mg/dL, High >219 mg/dL, Very high Secondary prevention optimal non HDL Cholesterol levels are recommended to be <100 mg/dL Cholesterol.total/Chol esterol in HDL [Mass ratio] 2.09 {ratio} NINF - 5.10 [facility] Fasting Time 12 hrs [facility] Triglyceride [Mass/Vol] 99 mg/dL NINF - 150 mg/dL [facility] Comment on above: <150 mg/dL, Normal 150-199 mg/dL, Borderline high 200-499 mg/dL, High >499 mg/dL, Very high [facility] THYROID STIMULATING HORMONEo n 01-12-2024 TSH Qn 3.020 m[IU]/L [facility] TSH Qnon 01-12-2024 Interpretation and review of laboratory results Normal [facility] CBC panel Auto (Bld)on 01-10 Erythrocyte distribution width (RBC) [Ratio] 13.7 % 11.5 - 15.0 % [facility] Hematocrit (Bld) [Volume fraction] 45.4 % 36.0 - 46.0 % [facility] Hemoglobin (Bld) [Mass/Vol] 14.4 g/dL 11.5 - 15.5 g/dL [facility] Interpretation and review of laboratory results Normal [facility] MCH (RBC) [Entitic mass] 31.3 pg 26.0 - 34.0 pg [facility] MCHC (RBC) [Mass/Vol] 31.7 g/dL 30.5 - 36.0 g/dL [facility] MCV (RBC) [Entitic vol] 98.7 fL 80.0 - 100.0 fL [facility] Nucleated RBC (Bld) [#/Vol] NINF [facility] Platelet mean volume (Bld) [Entitic vol] 10.6 fL 9.0 - 12.7 fL [facility] Platelets (Bld) [#/Vol] 231 10*3/uL [facility] RBC (Bld) [#/Vol] 4.60 10*6/uL 3.90 - 5.20 m/uL [facility] WBC (Bld) [#/Vol] 9.60 10*3/uL [facility] Erythrocyte distribution width (RBC) [Ratio] 13.7 % Normal 11.5-15.0 [facility] Comment on above: Order Comment: Speci men Type: BLOOD SPECIMENOrdering Facility: [facility] Address: [address] [place] [address] Performed By: #### 5 8410-2 ####[facility] [id number] [address] [facility] Hematocrit (Bld) [Volume fraction] 45.4 % Normal 36.0-46.0 [facility] Comment on above: Order Comment: Speci men Type: BLOOD SPECIMENOrdering Facility: [facility] Address: [address] [place] [address] Performed By: #### 5 8410-2 ####[facility] [id number] [place] [address] [place] Hemoglobin (Bld) [Mass/Vol] 14.4 g/dL Normal 11.5-15.5 [facility] Comment on above: Order Comment: Speci men Type: BLOOD SPECIMENOrdering Facility: [facility] Address: [address] [place] [address] Performed By: #### 5 8410-2 ####[facility] ANELDENVER [id number] [address] [place] MCH (RBC) [Entitic mass] 31.3 pg Normal 26.0-34.0 [facility] Comment on above: Order Comment: Speci men Type: BLOOD SPECIMENOrdering Facility: [facility] Address: [address] [place] [address] Performed By: #### 5 8410-2 ####[facility]ITALXINMarcell[facility] [id number] [place] [address] [place] MCHC (RBC) [Mass/Vol] 31.7 g/dL Normal 30.5-36.0 [facility] Comment on above: Order Comment: Speci men Type: BLOOD SPECIMENOrdering Facility: [facility] Address: [address] [place] [address] Performed By: #### 5 8410-2 ####[facility]ITALXINMarcell[facility] [id number] [address] [place] MCV (RBC) [Entitic vol] 98.7 fL Normal 80.0-100.0 [facility] Comment on above: Order Comment: Speci men Type: BLOOD SPECIMENOrdering Facility: [facility] Address: [address] [place] [address] Performed By: #### 5 8410-2 ####[facility]ITALXINAMER[facility] [id number] [place] [address] [place] Nucleated RBC (Bld) [#/Vol] 10*3/uL Normal <0.01 [facility] Comment on above: Order Comment: Speci men Type: BLOOD SPECIMENOrdering Facility: [facility] Address: [address] [place] [address] Performed By: #### 5 8410-2 ####[facility] MILLKATHARINAWNCLIA [id number] [place] [address] [place] Platelet mean volume (Bld) [Entitic vol] 10.6 fL Normal 9.0-12.7 [facility] Comment on above: Order Comment: Speci men Type: BLOOD SPECIMENOrdering Facility: [facility] Address: [address] [place] [address] Performed By: #### 5 8410-2 ####[facility] ANELWXINLIA [id number] [place] [address] [place] Platelets (Bld) [#/Vol] 231 10*3/uL Normal 150-400 [facility] Comment on above: Order Comment: Speci men Type: BLOOD SPECIMENOrdering Facility: [facility] Address: [address] [place] [address] Performed By: #### 5 8410-2 ####[facility] ANELMIKALIA [id number] [place] [address] [place] RBC (Bld) [#/Vol] 4.60 10*6/uL Normal 3.90-5.20 [facility] Comment on above: Order Comment: Speci men Type: BLOOD SPECIMENOrdering Facility: [facility] Address: [address] [place], [place] [address] Performed By: #### 5 8410-2 ####[facility] TERRIEWNCLIA [id number] [place] [address] [place] WBC (Bld) [#/Vol] 9.60 10*3/uL Normal 3.70-11.00 [facility] Comment on above: Order Comment: Speci men Type: BLOOD SPECIMENOrdering Facility: [facility] Address: [address] [place] [address] Performed By: #### 5 8410-2 ####[facility] HOSPITALX[facility] [id number] [place] [address] [place] CNOVon 01-11-2024 CNOV Office Visit (PULMWS ) -- ROSALBA ABEBE ([id number]) 1950 F Date Time Provider Department 01/11/24 2:45 PM NEHAL CALLE PULMWS During your visit today, we recorded the following information about you: Temperature Pulse Blood pressure Weight 99 degrees 75/minute 164/75 93.6 kg Nehal Calle MD 01/11/2024 4:05 PM Signed . Respiratory [place] Note Patient name: Rosalba Abebe PCP: Ally Espinosa DO CC: Fibrotic HP HPI: Rosalba Abebe 73 year old female former 41-[id number]-jpvl smoker, quitting in 1987 with PMH significant for HTN, hepatic steatosis, asthma previously on immunotherapy for allergies, GERD, HLD, SAM not using CPAP, history of congestive heart failure and hypersensitivity pneumonitis/bird fanciers disease. She has refused to completely eliminate the birds from her environment. She presents today for follow-up of her chest CT. Symptoms consist of dyspnea on exertion and she states she has been coughing more which is dry in nature. She also states she has been having some issues with her allergies with postnasal drip. No wheezing or chest pain. Chest CT shows persistent peripheral fibrotic changes and mosaicism relatively unchanged from her CT in 2021. She has not been ill with any upper respiratory infection nor required hospitalization nor any new medical issues. DATA: Labs: Mild restriction with low diffusion Imaging / Diagnostic Studies: DATE OF EXAM: Nov 12 2023 1:40PM [facility] 0541 - CT CHEST WO IVCON / PROCEDURE REASON: Interstitial pulmonary disease (HCC) CLINICAL HISTORY: Interstitial lung disease. Comparison: CT chest on 11/08/2021 RESULT: Limitations: None. Lines, tubes, and devices: None. Lung parenchyma and airways: The central airways are patent. There are fine reticular opacities in the bilateral lungs predominantly visualized in the peripheral areas, with involvement of immediate subpleural regions. There are multiple scattered groundglass opacities in the bilateral lungs. Traction bronchiectasis is again noted, with some architectural distortion. Questionable honeycombing in the right lower lobe. No mass lesion identified. No suspicious lung nodules. Pleural space: No pleural effusion. No pleural thickening. Lower neck, lymph nodes, and mediastinum: The imaged thyroid gland is normal. There are a few borderline/mildly enlarged mediastinal lymph nodes, without progressive lymphadenopathy. The evaluation of the hilar regions is somewhat limited due to lack of intravenous contrast. No supraclavicular or axillary lymphadenopathy. Heart, pericardium, and thoracic vessels: Stable cardiac chambers, thoracic aorta and central pulmonary arteries. No pleural effusion/thickening. Bones and soft tissues: Sclerotic lesion is again seen in T12 vertebral body. Osteophyte formation with disc space narrowing seen in the spine. No destructive bone lesion. The chest wall soft tissue is within normal limits. Upper abdomen: Limited study through the upper abdomen demonstrates numerous small gallbladder stones. Localizer images: No additional findings. IMPRESSION: Interstitial lung disease. Overall findings not significantly changed. A few borderline or mildly enlarged mediastinal lymph nodes. Gallbladder stones. Review of chest imaging shows fibrosis and mosaic pattern. Not significantly changed since 2021 PAST MEDICAL HISTORY Diagnosis Date Anemia due to vitamin B12 deficiency due to dietary causes Asthma Bird fancier's lung (HCC) Bone pain Chest pain possibly cardiac, continue baby aspirin daily Colon cancer screening 06/2016 cologuard test negative Electrocardiogram abnormal order for nuclear stress test to be done at [facility] Essential hypertension continue meds Fatty liver 11/2015 Fibromyalgia GERD (gastroesophageal reflux disease) take pantoprazole first thing in the morning on an empty stomach, at least 1/2 hour before eating Hyperlipidemia Hypersensitivity pneumonitis (HCC) Insomnia Joint pain Kidney stone change tamsulosin to as needed Left flank pain Migraine consider trial of imitrex after stress test is completed and if it is wnl Mini stroke 2016 Morbid obesity (HCC) Multiple joint pain Multiple lacunar infarcts (HCC) Obesity, unspecified Obstructive sleep apnea syndrome Unable to tolerate positive airway pressure 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 STOPS BREATHING DURING SURGERY. Aspirin Vomiting, Other: See Comments Blood in stool , adverse reaction Be (more content not included)... Normal [facility] metabolic 2000 panelOrdered By: Simran Salazar on 01-11-2024 Albumin [Mass/Vol] 4.3 g/dL 3.9 - 4.9 g/dL [facility] ALP [Catalytic activity/Vol] 107 U/L 34 - 123 U/L [facility] ALT [Catalytic activity/Vol] 15 U/L 7 - 38 U/L [facility] Anion gap [Moles/Vol] 14 mmol/L 8 - 15 mmol/L [facility] AST [Catalytic activity/Vol] 26 U/L 13 - 35 U/L [facility] Bilirubin [Mass/Vol] 0.3 mg/dL 0.2 - 1 .3 mg/dL [facility] Calcium [Mass/Vol] 10.3 mg/dL High 8.5 - 10. 2 mg/dL [facility] Chloride [Moles/Vol] 101 mmol/L 98 - 10 7 mmol/L [facility] CO2 [Moles/Vol] 20 mmol/L Low 22 - 30 mmol/L [facility] Creatinine [Mass/Vol] 0.75 mg/dL 0.58 - 0.96 mg/dL [facility] GFR/1.73 sq M.predicted among non-blacks MDRD (S/P/Bld) [Vol rate/Area] 84 mL/min/{1.73_m2} - PINF [facility] Comment on above: Estimated Glomerular Filtration Rate (eGFR) is calculated using the 2020 CKD-EPI creatinine equation. This equation utilizes serum creatinine, sex, and age as parameters. The creatinine assay has traceable calibration to isotope dilution-mass spectrometry. Refer to KDIGO guidelines for clinical interpretation. In patients with unstable renal function, e.g. those with acute kidney injury, the eGFR may not accurately reflect actual GFR. Glucose [Mass/Vol] 87 mg/dL 74 - 99 mg/dL [facility] Comment on above: The [place] Diabete s Association (ADA) provides guidance for cutoff values for fasting glucose and random glucose. The ADA defines fasting as no caloric intake for at least 8 hours. Fasting plasma glucose results between 100 to 125 mg/dL indicate increased risk for diabetes (prediabetes). Fasting plasma glucose results greater than or equal to 126 mg/dL meet the criteria for diagnosis of diabetes. In the absence of unequivocal hyperglycemia, results should be confirmed by repeat testing. In a patient with classic symptoms of hyperglycemia or hyperglycemic crisis, random plasma glucose results greater than or equal to 200 mg/dL meet the criteria for diagnosis of diabetes. Reference: Standards of Medical Care in Diabetes 2016, [place] Diabetes Association. Diabetes Care. 2016.39(Suppl 1). Interpretation and review of laboratory results Abnormal [facility] Potassium [Moles/Vol] 4.3 mmol/L 3.7 - 5.1 mmol/L [facility] Protein [Mass/Vol] 7.6 g/dL 6.3 - 8.0 g/dL [facility] Sodium [Moles/Vol] 135 mmol/L Low 136 - 144 mmol/L [facility] Urea nitrogen [Mass/Vol] 16 mg/dL 7 - 21 mg/dL [facility] Comprehensive metabolic 2000 panelon 01-11-2024 Albumin [Mass/Vol] 4.3 g/dL Normal 3.9-4.9 [facility] Comment on above: Order Comment: Speci men Type: BLOOD SPECIMENOrdering Facility: [facility] Address: [address] [place], [place] [address] Performed By: #### 3 084-1, 97547-1 ####[facility] [id number] [place] [address] [place] ALP [Catalytic activity/Vol] 107 U/L Normal 34-123 [facility] Comment on above: Order Comment: Speci men Type: BLOOD SPECIMENOrdering Facility: [facility] Address: [address] [place] [address] Performed By: #### 3 084-1, 77202-4 ####[facility] [id number] [place] [address] [place] ALT [Catalytic activity/Vol] 15 U/L Normal 7-38 [facility] Comment on above: Order Comment: Speci men Type: BLOOD SPECIMENOrdering Facility: [facility] Address: [address] [place] [address] Performed By: #### 3 084-1, 85998-4 ####[facility] GARC[facility] [id number] [place] [address] [place] Anion gap [Moles/Vol] 14 mmol/L Normal 8-15 [facility] Comment on above: Order Comment: Speci men Type: BLOOD SPECIMENOrdering Facility: [facility] Address: [address] [place] [address] Performed By: #### 3 084-1, 69030-9 ####[facility] ANELDEN[facility] [id number] [place] [address] [place] AST [Catalytic activity/Vol] 26 U/L Normal 13-35 [facility] Comment on above: Order Comment: Speci men Type: BLOOD SPECIMENOrdering Facility: [facility] Address: [address] [place] [address] Performed By: #### 3 084-1, 82980-4 ####[facility] ANELCESAR [id number] [place] [address] [place] Bilirubin [Mass/Vol] 0.3 mg/dL Normal 0.2-1.3 [facility] Comment on above: Order Comment: Speci men Type: BLOOD SPECIMENOrdering Facility: [facility] Address: [address] [place] [address] Performed By: #### 3 084-1, 82664-4 ####[facility] [id number] [place] [address] [place] Calcium [Mass/Vol] 10.3 mg/dL High 8.5-10.2 [facility] Comment on above: Order Comment: Speci men Type: BLOOD SPECIMENOrdering Facility: [facility] Address: [address] [place], [place] [address] Performed By: #### 3 084-1, 67410-4 ####[facility] ANELBrianNCLIA [id number] [place] [address] [place] Chloride [Moles/Vol] 101 mmol/L Normal 98-107 [facility] Comment on above: Order Comment: Speci men Type: BLOOD SPECIMENOrdering Facility: [facility] Address: [address] [place] [address] Performed By: #### 3 084-1, 13337-7 ####[facility]ITAL[facility]CL[facility] [id number] [place] [address] [place] CO2 [Moles/Vol] 20 mmol/L Low 22-30 [facility] Comment on above: Order Comment: Speci men Type: BLOOD SPECIMENOrdering Facility: [facility] Address: [address] [place] [address] Performed By: #### 3 084-1, 35592-1 ####[facility] [id number] [place] [address] [place] [facility] Creatinine [Mass/Vol] 0.75 mg/dL Normal 0.58-0.96 [facility] Comment on above: Order Comment: Speci men Type: BLOOD SPECIMENOrdering Facility: [facility] Address: [address] [place] [address] Performed By: #### 3 084-1, 14803-3 ####[facility]CL[facility] [id number] [place] [address] [place] [facility] Creatinine and Glomerular filtration rate.predicted panel (S/P/Bld) 84 mL/min/1.73m??? Normal >=60 [facility] Comment on above: Order Comment: Speci men Type: BLOOD SPECIMENOrdering Facility: [facility] Address: [address] [place] [address] Result Comment: Stacey mated Glomerular Filtration Rate (eGFR) is calculated using the 2020 CKD-EPI creatinine equation. This equation utilizes serum creatinine, sex, and age as parameters. The creatinine assay has traceable calibration to isotope dilution-mass spectrometry. Refer to KDIGO guidelines for clinical interpretation. In patients with unstable renal function, e.g. those with acute kidney injury, the eGFR may not accurately reflect actual GFR. Performed By: #### 3 084-1, 30199-6 ####[facility] EMERAL[facility] COASTWXINLIA [id number] [place] [address] [place] Glucose [Mass/Vol] 87 mg/dL Normal 74-99 [facility] Comment on above: Order Comment: Jonn aviles Type: BLOOD SPECIMENOrdering Facility: [facility] Address: [address] [place] [address] Result Comment: The [place] Diabetes Association (ADA) provides guidance for cutoff values for fasting glucose and random glucose. The ADA defines fasting as no caloric intake for at least 8 hours. Fasting plasma glucose results between 100 to 125 mg/dL indicate increased risk for diabetes (prediabetes). Fasting plasma glucose results greater than or equal to 126 mg/dL meet the criteria for diagnosis of diabetes. In the absence of unequivocal hyperglycemia, results should be confirmed by repeat testing. In a patient with classic symptoms of hyperglycemia or hyperglycemic crisis, random plasma glucose results greater than or equal to 200 mg/dL meet the criteria for diagnosis of diabetes. Reference: Standards of Medical Care in Diabetes 2016, [place] Diabetes Association. Diabetes Care. 2016.39(Suppl 1). Performed By: #### 3 084-1, 33557-5 ####[facility] EMERAL[facility] COASTWNCLIA [id number] [place] [address] [place] Potassium [Moles/Vol] 4.3 mmol/L Normal 3.7-5.1 [facility] Comment on above: Order Comment: Jonn aviles Type: BLOOD SPECIMENOrdering Facility: [facility] Address: [address] [place] [address] Performed By: #### 3 084-1, 07001-2 ####[facility]ITALXINL[facility] [id number] [place] [address] [place] Protein [Mass/Vol] 7.6 g/dL Normal 6.3-8.0 [facility] Comment on above: Order Comment: Speci men Type: BLOOD SPECIMENOrdering Facility: [facility] Address: [address] [place] [address] Performed By: #### 3 084-1, 10972-8 ####[facility] HOSPITALLAYLA [id number] [place] [address] [place] Sodium [Moles/Vol] 135 mmol/L Low 136-144 [facility] Comment on above: Order Comment: Speci men Type: BLOOD SPECIMENOrdering Facility: [facility] Address: [address] [place] [address] Performed By: #### 3 084-1, 70466-4 ####[facility]PITALMarcellus [id number] [place] [address] [place] Urea nitrogen [Mass/Vol] 16 mg/dL Normal 7-21 [facility] Comment on above: Order Comment: Speci men Type: BLOOD SPECIMENOrdering Facility: [facility] Address: [address] [place] [address] Performed By: #### 3 084-1, 98533-0 ####[facility]ITALL[facility] [id number] [place] [address] [place] Lipid 1996 panelon 4 Cholesterol [Mass/Vol] 167 mg/dL Normal <200 [facility] Comment on above: Order Comment: Speci men Type: BLOOD SPECIMENOrdering Facility: [facility] Address: [address] [place] [address] Result Comment: <200 mg/dL, Desirable 200-239 mg/dL, Borderline high >239 mg/dL, High Performed By: #### 3 016-3 ####[facility] LABCLIA [id number] [place] [address] [place]#### 60612-2 ####[facility] LABCLIA [id number] [address] [id number] [place] [address] [place] Cholesterol in HDL [Mass/Vol] 80 mg/dL Normal >39 [facility] Comment on above: Order Comment: Speci men Type: BLOOD SPECIMENOrdering Facility: [facility] Address: [address] [place] [address] Result Comment: 40-5 9 mg/dL, Acceptable >59 mg/dL, High: Negative risk factor for coronary heart disease <40 mg/dL, Low: Positive risk factor for coronary heart disease Performed By: #### 3 016-3 ####[facility] LABCLIA [id number] [place] [address] [place]#### 08615-0 ####[facility] LABCLIA [id number] [address] [id number] [place] [address] [place] Cholesterol in LDL [Mass/Vol] 67 mg/dL Normal <100 [facility] Comment on above: Order Comment: Speci men Type: BLOOD SPECIMENOrdering Facility: [facility] Address: [address] [place] [address] Result Comment: <100 mg/dL, Optimal 100-129 mg/dL, Near optimal/above optimal 130-159 mg/dL, Borderline high 160-189 mg/dL, High >189 mg/dL, Very high Secondary prevention optimal LDL Cholesterol levels are recommended to be < 70 mg/dL Performed By: #### 3 016-3 ####[facility] LABCLIA [id number] [address] [place]#### 72240-4 ####[facility] LABCLIA [id number] [address] [id number] [place] [address] [place] Cholesterol in LDL/Cholesterol in HDL [Mass ratio] 0.84 {ratio} Normal <2.54 [facility] Comment on above: Order Comment: Speci men Type: BLOOD SPECIMENOrdering Facility: [facility] Address: [address] [place] [address] Result Comment: Thomas mathew: 1. National Cholesterol Education Program ATP III Guideline At-A-Glance Quick Desk Reference: National Heart, Lung, and Blood [place]. National Institutes of Health. 2001: NIH Publication No. 01-3305. 2. An International Atherosclerosis Society position paper: global recommendations for the management of dyslipidemia: executive summary, Atherosclerosis. 2014: 232(2):410-413. Performed By: #### 3 016-3 ####[facility] LABCLIA [id number] [place] [address] [place]#### 74136-2 ####[facility] LABCLIA [id number] [address] [id number] [place] [address] [place] Cholesterol in VLDL [Mass/Vol] 20 mg/dL Normal <30 [facility] Comment on above: Order Comment: Speci men Type: BLOOD SPECIMENOrdering Facility: [facility] Address: [address] [place] [address] Performed By: #### 3 016-3 ####[facility] LABCLIA [id number] [place] [address] [place]#### 71398-2 ####[facility] LABCLIA [id number] [address] STATES [facility] [id number] [place] [address] [place] Cholesterol non HDL [Mass/Vol] 87 mg/dL Normal <130 [facility] Comment on above: Order Comment: Speci men Type: BLOOD SPECIMENOrdering Facility: [facility] Address: [address] [place] [address] Result Comment: <130 mg/dL, Optimal 130-159 mg/dL, Near optimal/above optimal 160-189 mg/dL, Borderline high 190-219 mg/dL, High >219 mg/dL, Very high Secondary prevention optimal non HDL Cholesterol levels are recommended to be <100 mg/dL Performed By: #### 3 016-3 ####[facility] LABCLIA [id number] [place] [address] [place]#### 48857-5 ####[facility] LABCLIA [id number] [address] STATES [facility] [id number] [place] [address] [place] Cholesterol.total/Chol esterol in HDL [Mass ratio] 2.09 {ratio} Normal <5.10 [facility] Comment on above: Order Comment: Speci men Type: BLOOD SPECIMENOrdering Facility: [facility] Address: [address] [place] [address] Performed By: #### 3 016-3 ####[facility] LABCLIA [id number] [place] [address] [place]#### 27486-8 ####[facility] LABCLIA [id number] [address] STATES OF [facility] [id number] [place] [address] [place] FASTING TIME 12 hrs Normal [facility] Comment on above: Order Comment: Speci men Type: BLOOD SPECIMENOrdering Facility: [facility] Address: [address] [place] [address] Performed By: #### 3 016-3 ####[facility] LABCLIA [id number] [place] [address] [place]#### 22870-0 ####[facility] LABCLIA [id number] [address] [id number] [place] [address] [place] Triglyceride [Mass/Vol] 99 mg/dL Normal <150 [facility] Comment on above: Order Comment: Speci men Type: BLOOD SPECIMENOrdering Facility: [facility] Address: [address] [place] [address] Result Comment: <150 mg/dL, Normal 150-199 mg/dL, Borderline high 200-499 mg/dL, High >499 mg/dL, Very high Performed By: #### 3 016-3 ####[facility] LABCLIA [id number] [place] [address] [place]#### 24650-4 ####[facility] LABCLIA [id number] [address] [id number] [place] [address] [place] No Panel Informationon 01-10 [facility] TSH SerPl-aCncon 01-11-2024 TSH Qn 3.020 m[IU]/L Normal 0.270-4.20 0 [facility] Comment on above: Order Comment: Speci men Type: BLOOD SPECIMENOrdering Facility: [facility] Address: [address] [place] [address] Performed By: #### 3 016-3 ####[facility] LABCLIA [id number] [address] [place]#### 14894-8 ####[facility] [id number] [address] STATES OF [facility] [id number] [place] [address] [place] URIC ACIDon 01-11-2024 Urate [Mass/Vol] 4.1 mg/dL 2.5 - 6.6 mg/dL [facility] Urate SerPl-mCncon Urate [Mass/Vol] 4.1 mg/dL Normal 2.5-6.6 [facility] Comment on above: Order Comment: Speci men Type: BLOOD SPECIMENOrdering Facility: [facility] Address: [address] [place] [address] Performed By: #### 3 084-1, 40232-7 ####[facility] [id number] [place] [address] [place] Urate [Mass/Vol]on Interpretation and review of laboratory results Normal [facility] CNOVon 01-04-2024 CNOV Office Visit ([place] [facility]) -- ROSALBA ABEBE ([id number]) 1950 F Date Time Provider Department 01/04/24 2:00 PM ALLY ESPINOSA During your visit today, we recorded the following information about you: Temperature Pulse Respiration Blood pressure 98 degrees 80/minute 16/minute 112/68 Weight Height 90.7 kg 1.588 m Ally Espinosa DO 01/24/2024 8:15 PM Signed Subjective The history is provided by the patient. Hypertension This is a chronic problem. The current episode started more than 1 year ago. The problem is unchanged. The problem is controlled. Associated symptoms include malaise/fatigue. Pertinent negatives include no blurred vision, chest pain, headaches, palpitations or shortness of breath. She has pain in her left lower back When she stands up her pain is 8/10 She stopped taking oxycodone because it was not helping She fell onto her face, landing on her right forehead, while vacuuming the porch on 10/23/23 She had swelling above her right eyebrow, but that has resolved She is frustrated with her weight, and she feels tired, even when she wakes up in the morning She would like to try wellbutrin for appetite suppression as she did not receive the Rx that was sent in last time she was here ALLERGIES Allergen Reactions Amoxicillin-Pot Cla* Diarrhea, GI Upset Anesthetics - Amide* Other: See Comments BECOMES AGGRESSIVE AND COMBATIVE. STOPS BREATHING DURING SURGERY. Aspirin Vomiting, Other: See Comments Blood in stool , adverse reaction Bee Venom Protein (* Swelling Cefdinir Diarrhea, GI Upset, Intolerance, Vomiting Cortisone Other: See Comments CAUSES PAIN AND BURNING Darvocet-N 100 [Pro* GI Upset, Vomiting Estrogens Other: See Comments ALL HORMONES, HAVE TRIED MANY. GIVES BREAKTHROUGH BLEEDING Influenza Virus Vac* Unknown Iodinated Contrast * Hives, Vomiting ALL DYES Iodine And Iodide C* Swelling Levaquin [Levofloxa* GI Upset E.E.S. Nsaids (Non-Steroid* Unknown Paxil [Paroxetine H* Other: See Comments Weight gain Spider Venom Swelling Trazodone Intolerance Achiness Venom-Wasp Swelling Current Outpatient Medications Medication Sig Dispense Refill tamsulosin (FLOMAX) 0.4 mg TAKE 1 CAPSULE EVERY DAY 90 capsule 3 fluticasone-salmeterol (ADVAIR, WIXELA) 250-50 mcg/dose inhaler INHALE 1 PUFF INSTRUCTED TWICE DAILY. 180 Each 3 LORazepam (ATIVAN) 0.5 mg Take 1 tablet by mouth two times a day as needed for up to 90 days. 180 tablet 0 Ibandronate 150 mg tablet TAKE 1 TABLET ONE TIME PER MONTH 3 tablet 3 isosorbide mononitrate ER (IMDUR) 30 mg 24 hr tablet Take 0.5 tablets by mouth once daily. 90 tablet 3 Ipratropium Sewell (ATROVENT) 21 mcg (0.03 %) nasal spray USE 1 SPRAY NASALLY TWICE DAILY 30 mL 3 simvastatin (ZOCOR) 40 mg tablet take 1 tablet at bedtime 90 tablet 3 omeprazole (PRILOSEC) 40 mg capsule TAKE 1 CAPSULE EVERY DAY 90 capsule 3 furosemide (LASIX) 40 mg tablet TAKE 1 AND 1/2 TABLETS TWICE DAILY 270 tablet 3 potassium chloride ER (KLOR-CON M10) 10 mEq tablet TAKE 2 TABLETS TWICE A DAY 360 tablet 3 montelukast (SINGULAIR) 10 mg tablet take 1 tablet at bedtime 90 tablet 3 sertraline (ZOLOFT) 50 mg tablet take 1 tablet every day 90 tablet 3 allopurinol (ZYLOPRIM) 300 mg tablet take 1 tablet every day 90 tablet 10 triamcinolone acetonide (KENALOG) 0.1 % ointment APPLY TO AFFECTED AREA TWICE DAILY NEEDED 80 g 10 Garlic (ODORLESS GARLIC) 300 mg cap pyridoxine, vitamin B6, (VITAMIN B-6) 100 mg tablet hydroxyzine HCl (ATARAX ORAL) Take by mouth. diphenhydramine HCl (BENADRYL ALLERGY ORAL) Take 2 tablets by mouth every 12 hours as needed. carboxymethylcellulose sodium (ARTIFICIAL TEARS, CMC, OPHTHALMIC) Use in eyes. albuterol HFA (PROVENTIL HFA, VENTOLIN HFA) 90 mcg/actuation inhaler Inhale 2 Puffs as instructed every 4 hours as needed for wheezing/shortness of breath. 1 Inhaler 1 cholecalciferol (VITAMIN D) 1,000 unit tab tablet Take 1 tablet by mouth once daily. guaiFENesin (MUCINEX) 600 mg 12 hr tablet Take 1 tablet by mouth every 12 hours as needed (cough). (Patient taking differently: Take 600 mg by mouth two times a day.) 30 tablet 0 cetirizine (ZYRTEC) 10 mg tablet Take 10 mg by mouth once daily. omega-3/dha/epa/dpa/fish oil (OMEGA-3 2100 ORAL) Take by mouth. Orlistat (KUSUM) 60 mg capsule Take 120 mg by mouth twice daily with meals. POLYETHYLENE GLYCOL 3350 (MIRALAX ORAL) Take by mouth. aspirin, enteric coated (ASPIRIN, ENTERIC COATED) 81 mg EC tablet Take 81 mg by mouth once daily. docusate sodium (COLACE) 100 mg capsule Take 300 mg by mouth once daily. buPROPion SR (WELLBUTRIN SR) 150 mg 12 hr tablet Take 1 tablet by mouth every morning for 3 days, THEN 1 tablet two times a day for 27 days. 57 tablet 0 pectin/vit B6/mins 4/c.vinegar (APPLE CIDER VINEGAR COMPLEX ORAL) (Patient not taking: Reported on (more content not included)... Normal [facility] 25(OH)D3 [facility] 25-hydroxyvitamin D3 [Mass/Vol] 25.7 ng/mL Low 31.0-80.0 [facility] Comment on above: Order Comment: Speci men Type: BLOOD SPECIMENOrdering Facility: [facility] Address: [address] [place] [address] Result Comment: Clas sification of 25 [place] Vitamin D status: Deficiency/Insufficiency: < or = 30 ng/ml. Sufficiency/Optimal Levels: 31-80 ng/mL Toxicity: > 100 ng/mL. Test performed by chemiluminescent immunoassay. Performed By: #### 1 [id number] ####[facility] LABCLIA [id number] [place] [address] [place] [address] [address] CHEST WO IVCONon 11-12-19 CT CHEST WO IVCON * * *Final Report* * * DATE OF EXAM: Nov 12 2023 1:40PM [facility] 0541 - CT CHEST WO IVCON / PROCEDURE REASON: Interstitial pulmonary disease (HCC) * * * * Physician Interpretation * * * * EXAMINATION: CHEST CT WITHOUT CONTRAST CLINICAL HISTORY: Interstitial lung disease. Technique: Spiral CT acquisition of the chest from the thoracic inlet to the upper abdomen without contrast. The study was performed following HRCT protocol. MQ: [id number] CT Radiation dose: Integrated Dose-length product (DLP) for this visit = 409 mGy*cm CT Dose Reduction Employed: Automated exposure control(AEC) and iterative recon Comparison: CT chest on 11/08/2021 RESULT: Limitations: None. Lines, tubes, and devices: None. Lung parenchyma and airways: The central airways are patent. There are fine reticular opacities in the bilateral lungs predominantly visualized in the peripheral areas, with involvement of immediate subpleural regions. There are multiple scattered groundglass opacities in the bilateral lungs. Traction bronchiectasis is again noted, with some architectural distortion. Questionable honeycombing in the right lower lobe. No mass lesion identified. No suspicious lung nodules. Pleural space: No pleural effusion. No pleural thickening. Lower neck, lymph nodes, and mediastinum: The imaged thyroid gland is normal. There are a few borderline/mildly enlarged mediastinal lymph nodes, without progressive lymphadenopathy. The evaluation of the hilar regions is somewhat limited due to lack of intravenous contrast. No supraclavicular or axillary lymphadenopathy. Heart, pericardium, and thoracic vessels: Stable cardiac chambers, thoracic aorta and central pulmonary arteries. No pleural effusion/thickening. Bones and soft tissues: Sclerotic lesion is again seen in T12 vertebral body. Osteophyte formation with disc space narrowing seen in the spine. No destructive bone lesion. The chest wall soft tissue is within normal limits. Upper abdomen: Limited study through the upper abdomen demonstrates numerous small gallbladder stones. Localizer images: No additional findings. IMPRESSION: Interstitial lung disease. Overall findings not significantly changed. A few borderline or mildly enlarged mediastinal lymph nodes. Gallbladder stones. Manufacturing Engineer Supervisor: PSCB Transcribe Date/Time: Nov 15 2023 8:39A Dictated by : ROSHAN WATSON MD This examination was interpreted and the report reviewed and electronically signed by: ROSHAN WATSON MD on Nov 15 2023 4:36PM EST [id number] Normal [facility] 10-19-2023 [facility] Telephone (PULWS) -- ROSALBA ABEBE ([id number]) 1950 F Date Time Provider Department 10/19/23 NEHAL CALLELUIS During your visit today, we recorded the following information about you: Stefanie Lewis RN 10/19/2023 12:24 PM Signed Rosalba called, verified name and date of . When she saw Dr. Calle on 06/21/23, she discontinued her portable oxygen, but [facility] never received the order. Could the office please fax the order to [phone]. If you have any questions for [facility], they can be reached at [phone]. Stefanie Lewis RN October 19, 2023 12:24 PM Kaylah Lara LPN 10/19/2023 12:32 PM Signed DC orders, oximetry results and visit notes faxed. Kaylah Lara LPN Allergies As of Date: 10/19/2023 Noted Allergy Reaction AMOXICILLIN-POT CLAVULANATE 10/04/2017 6 - Diarrhea 8 - GI Upset ANESTHETICS - AMIDE TYPE - SELECT*09/28/2015 14 - Other: See Comments Comments: BECOMES AGGRESSIVE AND COMBATIVE. STOPS BREATHING DURING SURGERY. ASPIRIN 09/28/2015 11 - Vomiting 14 - Other: See Comments Comments: Blood in stool , adverse reaction BEE VENOM PROTEIN (HONEY BEE) 09/06/2020 7 - Swelling CEFDINIR 02/05/2023 6 - Diarrhea 8 - GI Upset 5 - Intolerance 11 - Vomiting CORTISONE 09/28/2015 14 - Other: See Comments Comments: CAUSES PAIN AND BURNING DARVOCET-N 100 (PROPOXYPHENE N-AC*09/28/2015 8 - GI Upset 11 - Vomiting ESTROGENS 09/28/2015 14 - Other: See Comments Comments: ALL HORMONES, HAVE TRIED MANY. GIVES BREAKTHROUGH BLEEDING INFLUENZA VIRUS VACCINE WHOLE 12/03/2017 16 - Unknown IODINATED CONTRAST MEDIA 09/28/2015 4 - Hives 11 - Vomiting Comments: ALL DYES IODINE AND IODIDE CONTAINING PROD*09/28/2015 7 - Swelling LEVAQUIN (LEVOFLOXACIN) 09/28/2015 8 - GI Upset Comments: E.E.S. NSAIDS (NON-STEROIDAL ANTI-INFLAM*03/31/2013 16 - Unknown PAXIL (PAROXETINE HCL) 09/28/2015 14 - Other: See Comments Comments: Weight gain SPIDER VENOM 09/06/2020 7 - Swelling TRAZODONE 12/22/2021 5 - Intolerance Comments: Achiness VENOM-WASP 09/06/2020 7 - Swelling Date Reviewed: 06/21/2023 Reviewed by: Nehal Calle MD - Fully Assessed Reason for Visit: Orders [681] Prescriptions as of 10/19/2023 - LORazepam (ATIVAN) 0.5 mg Take 1 tablet by mouth two times a day as needed for up to 30 days. - oxyCODONE-acetaminophen (PERCOCET) 5-325 mg tablet Take 1 tablet by mouth every 6 hours as needed for pain for up to 90 days. - Ibandronate 150 mg tablet TAKE 1 TABLET ONE TIME PER MONTH - isosorbide mononitrate ER (IMDUR) 30 mg 24 hr tablet Take 0.5 tablets by mouth once daily. - buPROPion SR (WELLBUTRIN SR) 150 mg 12 hr tablet Take 1 tablet by mouth every morning for 3 days, THEN 1 tablet two times a day for 27 days. - Ipratropium Sewell (ATROVENT) 21 mcg (0.03 %) nasal spray USE 1 SPRAY NASALLY TWICE DAILY - simvastatin (ZOCOR) 40 mg tablet take 1 tablet at bedtime - omeprazole (PRILOSEC) 40 mg capsule TAKE 1 CAPSULE EVERY DAY - furosemide (LASIX) 40 mg tablet TAKE 1 AND 1/2 TABLETS TWICE DAILY - potassium chloride ER (KLOR-CON M10) 10 mEq tablet TAKE 2 TABLETS TWICE A DAY - montelukast (SINGULAIR) 10 mg tablet take 1 tablet at bedtime - sertraline (ZOLOFT) 50 mg tablet take 1 tablet every day - allopurinol (ZYLOPRIM) 300 mg tablet take 1 tablet every day - tamsulosin (FLOMAX) 0.4 mg TAKE 1 CAPSULE EVERY DAY - triamcinolone acetonide (KENALOG) 0.1 % ointment APPLY TO AFFECTED AREA TWICE DAILY NEEDED - pectin/vit B6/mins 4/c.vinegar (APPLE CIDER VINEGAR COMPLEX ORAL) - Garlic (ODORLESS GARLIC) 300 mg cap - pyridoxine, vitamin B6, (VITAMIN B-6) 100 mg tablet - fluticasone-salmeterol (ADVAIR, WIXELA) 250-50 mcg/dose inhaler INHALE 1 PUFF INSTRUCTED TWICE DAILY. - hydroxyzine HCl (ATARAX ORAL) Take by mouth. - Deandra, Zingiber officinalis, (DEANDRA EXTRACT) 250 mg cap Take 450 mg by mouth once daily. - Lactobacillus acidophilus (PROBIOTIC) 10 billion cell cap Take by mouth. Prebiotic - diphenhydramine HCl (BENADRYL ALLERGY ORAL) Take 2 tablets by mouth every 12 hours as needed. - carboxymethylcellulose sodium (ARTIFICIAL TEARS, CMC, OPHTHALMIC) Use in eyes. - albuterol HFA (PROVENTIL HFA, VENTOLIN HFA) 90 mcg/actuation inhaler Inhale 2 Puffs as instructed every 4 hours as needed for wheezing/shortness of breath. - cholecalciferol (VITAMIN D) 1,000 unit tab tablet Take 1 tablet by mouth once daily. - guaiFENesin (MUCINEX) 600 mg 12 hr tablet Take 1 tablet by mouth every 12 hours as needed (cough). - cetirizine (ZYRTEC) 10 mg tablet Take 10 mg by mouth once daily. - omega-3/dha/epa/dpa/fish oil (OMEGA-3 2100 ORAL) Take by mouth. - Orlistat (KUSUM) 60 mg capsule Take 120 mg by mouth twice daily with meals. - POLYETHYLENE GLYCOL 3350 (MIRALAX ORAL) Take by mouth. - aspirin, enteric coated (ASPIRIN, ENTERIC COAT (more content not included)... Normal [facility] Tele[facility] (AGFAMPLE) -- ROSALBA ABEBE ([id number]) 1950 F Date Time Provider Department 10/08/23 ALLY ESPINOSA During your visit today, we recorded the following information about you: Lynette Rivas MA 10/08/2023 7:37 AM Signed ----- Message from Whit Low MA sent at 07/06/2023 11:45 AM EDT ----- Remind pt. Time to recheck vitamin d. PAM Hirsch Kimberly C, DO 10/08/2023 8:15 PM Signed Order attached DO Silvano Thompson Kimberly C DO 10/08/2023 8:15 PM Signed Addended by: ALLY ESPINOSA on: 10/08/2023 08:15 PM Modules accepted: Rk Whit MandujanoPAM 10/09/2023 7:48 AM Signed Lm on pt. Vm with all information. Whit Mandujano PAM Allergies As of Date: 10/08/2023 Noted Allergy Reaction AMOXICILLIN-POT CLAVULANATE 10/04/2017 6 - Diarrhea 8 - GI Upset ANESTHETICS - AMIDE TYPE - SELECT*09/28/2015 14 - Other: See Comments Comments: BECOMES AGGRESSIVE AND COMBATIVE. STOPS BREATHING DURING SURGERY. ASPIRIN 09/28/2015 11 - Vomiting 14 - Other: See Comments Comments: Blood in stool , adverse reaction BEE VENOM PROTEIN (HONEY BEE) 09/06/2020 7 - Swelling CEFDINIR 02/05/2023 6 - Diarrhea 8 - GI Upset 5 - Intolerance 11 - Vomiting CORTISONE 09/28/2015 14 - Other: See Comments Comments: CAUSES PAIN AND BURNING DARVOCET-N 100 (PROPOXYPHENE N-AC*09/28/2015 8 - GI Upset 11 - Vomiting ESTROGENS 09/28/2015 14 - Other: See Comments Comments: ALL HORMONES, HAVE TRIED MANY. GIVES BREAKTHROUGH BLEEDING INFLUENZA VIRUS VACCINE WHOLE 12/03/2017 16 - Unknown IODINATED CONTRAST MEDIA 09/28/2015 4 - Hives 11 - Vomiting Comments: ALL DYES IODINE AND IODIDE CONTAINING PROD*09/28/2015 7 - Swelling LEVAQUIN (LEVOFLOXACIN) 09/28/2015 8 - GI Upset Comments: E.E.S. NSAIDS (NON-STEROIDAL ANTI-INFLAM*03/31/2013 16 - Unknown PAXIL (PAROXETINE HCL) 09/28/2015 14 - Other: See Comments Comments: Weight gain SPIDER VENOM 09/06/2020 7 - Swelling TRAZODONE 12/22/2021 5 - Intolerance Comments: Achiness VENOM-WASP 09/06/2020 7 - Swelling Date Reviewed: 06/21/2023 Reviewed by: Nehal Calle MD - Fully Assessed Reason for Visit: Lab Orders [0548] Primary Visit Diagnosis:Vitamin D deficiency [E55.9] Order(s):VITAMIN D 25 HYDROXY [SQVITD] Order #: [id number] FUTURE Prescriptions as of 10/09/2023 - LORazepam (ATIVAN) 0.5 mg Take 1 tablet by mouth two times a day as needed for up to 30 days. - oxyCODONE-acetaminophen (PERCOCET) 5-325 mg tablet Take 1 tablet by mouth every 6 hours as needed for pain for up to 90 days. - Ibandronate 150 mg tablet TAKE 1 TABLET ONE TIME PER MONTH - isosorbide mononitrate ER (IMDUR) 30 mg 24 hr tablet Take 0.5 tablets by mouth once daily. - buPROPion SR (WELLBUTRIN SR) 150 mg 12 hr tablet Take 1 tablet by mouth every morning for 3 days, THEN 1 tablet two times a day for 27 days. - Ipratropium Sewell (ATROVENT) 21 mcg (0.03 %) nasal spray USE 1 SPRAY NASALLY TWICE DAILY - simvastatin (ZOCOR) 40 mg tablet take 1 tablet at bedtime - omeprazole (PRILOSEC) 40 mg capsule TAKE 1 CAPSULE EVERY DAY - furosemide (LASIX) 40 mg tablet TAKE 1 AND 1/2 TABLETS TWICE DAILY - potassium chloride ER (KLOR-CON M10) 10 mEq tablet TAKE 2 TABLETS TWICE A DAY - montelukast (SINGULAIR) 10 mg tablet take 1 tablet at bedtime - sertraline (ZOLOFT) 50 mg tablet take 1 tablet every day - allopurinol (ZYLOPRIM) 300 mg tablet take 1 tablet every day - tamsulosin (FLOMAX) 0.4 mg TAKE 1 CAPSULE EVERY DAY - triamcinolone acetonide (KENALOG) 0.1 % ointment APPLY TO AFFECTED AREA TWICE DAILY NEEDED - pectin/vit B6/mins 4/c.vinegar (APPLE CIDER VINEGAR COMPLEX ORAL) - Garlic (ODORLESS GARLIC) 300 mg cap - pyridoxine, vitamin B6, (VITAMIN B-6) 100 mg tablet - fluticasone-salmeterol (ADVAIR, WIXELA) 250-50 mcg/dose inhaler INHALE 1 PUFF INSTRUCTED TWICE DAILY. - hydroxyzine HCl (ATARAX ORAL) Take by mouth. - Deandra, Zingiber officinalis, (DEANDRA EXTRACT) 250 mg cap Take 450 mg by mouth once daily. - Lactobacillus acidophilus (PROBIOTIC) 10 billion cell cap Take by mouth. Prebiotic - diphenhydramine HCl (BENADRYL ALLERGY ORAL) Take 2 tablets by mouth every 12 hours as needed. - carboxymethylcellulose sodium (ARTIFICIAL TEARS, CMC, OPHTHALMIC) Use in eyes. - albuterol HFA (PROVENTIL HFA, VENTOLIN HFA) 90 mcg/actuation inhaler Inhale 2 Puffs as instructed every 4 hours as needed for wheezing/shortness of breath. - cholecalciferol (VITAMIN D) 1,000 unit tab tablet Take 1 tablet by mouth once daily. - guaiFENesin (MUCINEX) 600 mg 12 hr tablet Take 1 tablet by mouth every 12 hours as needed (cough). - cetirizine (ZYRTEC) 10 mg tablet Take 10 mg by mouth once daily. - omega-3/dha/epa/dpa/fish oil (OMEGA-3 2100 ORAL) Take by mouth. - Orlistat (KUSUM) 60 mg capsule Take 120 mg by mouth twice daily with meals. - POLYET (more content not included)... Normal [facility] No Panel Informationon 06-20 [facility] [address] [place] [address] Test Date: 2023-06-21 Pat Name: ROSALBA ABEBE Department: Room: Gender: Female Product Representative: : 1950 Requested By: Order Number: [id number] Reading MD: Nehal Calle MD Interpretive Statements Medications and Allergies were reviewed for possible drug interactions per policy. No contraindications or sensitivities were noted. Meds taken: Advair 4/hours before testing. Current ATS/ERS acceptability and repeatability standards for spirometry met. Start of test and EOFE criteria met. Current ATS/ERS acceptability and repeatability standards for lung volumes met. Current ATS/ERS acceptability and repeatability standards for DLCO met with 2 acceptable maneuvers. IMPRESSION: Spirometry is normal. The TLC is reduced indicating restriction. The diffusing capacity is normal. 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 Smoking Hx: Non-smoker Doctor: NEHAL CALLE Test Date: 06/21/2023 Site: Tech: Sonia Melissa PRE-BRONCH POST-BRONCH Pre LLN Pred ULN %Pred Post %Pred %Chg SPIROMETRY FVC (L) 2.20 1.77 2.53 3.30 87 FEV1 (L) 1.94 1.36 1.97 2.53 98 FEV1/FVC 0.88 0.66 0.79 0.89 111 PEF L/s (L/sec) 6.24 3.55 5.18 6.81 120 FEF50 (L/sec) 3.26 1.30 2.91 4.51 112 FIF50 (L/sec) 4.16 FEF50/FIF50 0.78 90-100 FIVC (L) 2.16 NGH17-75 (L/sec) 2.98 0.77 1.71 3.07 174 Time (sec) 3.87 FET PEF (sec) 0.15 SVEN (L) 0.10 Vol Extrap % (%) 5 LUNG VOLUMES TGV (L) 1.72 1.90 2.76 3.62 62 ERV (L) 0.48 0.84 57 RV (Pleth) (L) 1.17 1.55 2.17 2.80 53 SVC (L) 2.18 1.77 2.53 3.30 86 IC (L) 1.69 1.68 100 TLC (Pleth) (L) 3.34 3.95 4.83 5.71 69 RV/TLC (Pleth) (%) 35 36 45 54 78 LUNG DIFFUSION DLCOunc (ml/min/mmHg) 12.47 13.40 19.57 25.74 63 VA (L) 3.19 3.71 4.82 5.92 66 DLunc/VA (ml/min/mmHg/L) 3.90 2.99 4.31 5.62 90 BHT (sec) 10.50 IVC (L) 2.12 Comments: Medications and Allergies were reviewed for possible drug interactions per policy. No contraindications or sensitivities were noted. Meds taken: Advair 4/hours before testing. Current ATS/ERS acceptability and repeatability standards for spirometry met. Start of test and EOFE criteria met. Current ATS/ERS acceptability and repeatability standards for lung volumes met. Current ATS/ERS acceptability and repeatability standards for DLCO met with 2 acceptable maneuvers. PULMONARY FUNCTION LAB [facility] OXIMETRY WITH AMBULATIONon 0 06-21-2023 Sonia Melissa RPF T 06/21/2023 1:42 PM RESPIRATORY THERAPY OXIMETRY WITH AMBULATION Oximetry with Ambulation Test for This Encounter O2 Device O2 Adapter NC O2 Flow SpO2% HR Activity Ft Walked (ft) Time (min) Avg Speed (MPH) R/A 96 72 Resting R/A 91 94 Walking, usual pace 270 3 1.02 General Information Pulse Oximetry Site Total Time Spent Walking Assistance/O2 Supply Carrier L Index Finger 30 Cane NAME: Sonia MelissaCOMPA PATIENT NAME: Rosalba Abebe DATE: June 21, 2023 TIME: 1:41 PM Comment: [facility] OXIMETRY WITH AMBULATIONOrde red By: Sonia Melissa on 06-21-2023 [facility] SPIROMETRY WITH DILATOR IF O BSTRUCTEDon 06-21-2023 DLCO (ml/min/mmHg) 12.47 ml/min/mm H g [facility] DLCO/VA (ml/min/mmHg/L) 3.90 ml/min/mmH g/L [facility] ERV BOX (L) 0.48 L [facility] BVY39-17% PRE (L/S) 2.98 L/S [facility] FEV1 PRE (L) 1.94 L [facility] FEV1/FVC PRE (%) 88 % [facility] FRC Box (L) 1.72 L [facility] FVC PRE (L) 2.20 L [facility] IC BOX (L) 1.69 L [facility] PEF PRE (L/S) 6.24 L/S [facility] RV Box (L) 1.17 L [facility] RV/TLC Box (%) 35 % [facility] TLC Box (L) 3.34 L [facility] VA (L) 3.19 L [facility] VC (L) BOX 2.18 L [facility] OXIMETRY WITH AMBULATIONon 0 06-12-2022 [facility] CNPNon 03-02-2022 CNPN Telephone ([facility]) -- ROSALBA ABEBE ([id number]) 1950 F Date Time Provider Department 03/02/22 [facility] CAMPOS [facility] During your visit today, we recorded the following information about you: Allergies As of Date: 03/02/2022 Noted Allergy Reaction AMOXICILLIN-POT CLAVULANATE 10/04/2017 6 - Diarrhea 8 - GI Upset ANESTHETICS - AMIDE TYPE - SELECT*09/28/2015 14 - Other: See Comments Comments: BECOMES AGGRESSIVE AND COMBATIVE. STOPS BREATHING DURING SURGERY. ASPIRIN 09/28/2015 11 - Vomiting 14 - Other: See Comments Comments: Blood in stool , adverse reaction BEE VENOM PROTEIN (HONEY BEE) 09/06/2020 7 - Swelling CORTISONE 09/28/2015 14 - Other: See Comments Comments: CAUSES PAIN AND BURNING DARVOCET-N 100 (PROPOXYPHENE N-AC*09/28/2015 8 - GI Upset 11 - Vomiting ESTROGENS 09/28/2015 14 - Other: See Comments Comments: ALL HORMONES, HAVE TRIED MANY. GIVES BREAKTHROUGH BLEEDING INFLUENZA VIRUS VACCINE WHOLE 12/03/2017 16 - Unknown IODINATED CONTRAST MEDIA 09/28/2015 4 - Hives 11 - Vomiting Comments: ALL DYES IODINE AND IODIDE CONTAINING PROD*09/28/2015 7 - Swelling LEVAQUIN (LEVOFLOXACIN) 09/28/2015 8 - GI Upset Comments: E.E.S. NSAIDS (NON-STEROIDAL ANTI-INFLAM*03/31/2013 16 - Unknown PAXIL (PAROXETINE HCL) 09/28/2015 14 - Other: See Comments Comments: Weight gain SPIDER VENOM 09/06/2020 7 - Swelling TRAZODONE 12/22/2021 5 - Intolerance Comments: Achiness VENOM-WASP 09/06/2020 7 - Swelling Date Reviewed: 01/31/2022 Reviewed by: Rocio Barber - Fully Assessed Reason for Visit: Medication Problem [65] Cmt: Refill sent to Mail Order pharmacy for isosorbide- 90 day supply Jenelle Campos APRN.CT TECHNICIAN Order(s):isosorbide mononitrate ER (IMDUR) 30 mg 24 hr tabletTake 0.5 tablets by mouth once daily.Disp: 90 tabletRfl: 3 Prescriptions as of 03/02/2022 - isosorbide mononitrate ER (IMDUR) 30 mg 24 hr tablet Take 0.5 tablets by mouth once daily. - montelukast (SINGULAIR) 10 mg tablet TAKE 1 TABLET AT BEDTIME - triamcinolone acetonide (KENALOG) 0.1 % ointment APPLY TO AFFECTED AREA TWICE DAILY NEEDED - pramipexole (MIRAPEX) 0.125 mg tablet - hydroxyzine HCl (ATARAX ORAL) Take by mouth. - LORazepam (ATIVAN) 0.5 mg Take 1 tablet by mouth at bedtime as needed for up to 90 days. - fluticasone-salmeterol (ADVAIR, WIXELA) 250-50 mcg/dose inhaler Inhale 1 Puff as instructed twice daily. - allopurinol (ZYLOPRIM) 300 mg tablet Take 1 tablet by mouth once daily. - ergocalciferol 50,000 unit capsule (VITAMIN D2, DRISDOL) Take 1 capsule by mouth one time a week. Use as directed. - furosemide (LASIX) 40 mg tablet Take 1.5 tablets by mouth twice daily. - sertraline (ZOLOFT) 50 mg tablet Take 1 tablet by mouth once daily. - Ipratropium Sewell (ATROVENT) 21 mcg (0.03 %) nasal spray USE 1 SPRAY NASALLY TWICE DAILY - omeprazole (PRILOSEC) 40 mg capsule TAKE 1 CAPSULE EVERY DAY - Deandra, Zingiber officinalis, (DEANDRA EXTRACT) 250 mg cap Take 450 mg by mouth once daily. - Lactobacillus acidophilus (PROBIOTIC) 10 billion cell cap Take by mouth. Prebiotic - diphenhydramine HCl (BENADRYL ALLERGY ORAL) Take 2 tablets by mouth every 12 hours as needed. - carboxymethylcellulose sodium (ARTIFICIAL TEARS, CMC, OPHTHALMIC) Use in eyes. - sodium chloride (SALINE MIST) 0.65 % nasal spray Use 1 [place] in the nose as needed. - potassium chloride ER (K-DUR, KLOR-CON) 10 mEq tablet TAKE 2 TABLETS TWICE DAILY - simvastatin (ZOCOR) 40 mg tablet TAKE 1 TABLET EVERY DAY AT BEDTIME - tamsulosin (FLOMAX) 0.4 mg TAKE 1 CAPSULE EVERY DAY - Ibandronate 150 mg tablet TAKE 1 TABLET ONE TIME PER MONTH - albuterol HFA (PROVENTIL HFA, VENTOLIN HFA) 90 mcg/actuation inhaler Inhale 2 Puffs as instructed every 4 hours as needed for wheezing/shortness of breath. - cholecalciferol (VITAMIN D) 1,000 unit tab tablet Take 1 tablet by mouth once daily. - guaiFENesin (MUCINEX) 600 mg 12 hr tablet Take 1 tablet by mouth every 12 hours as needed (cough). - OTC PRODUCT Super snooze night time sleep - cetirizine (ZYRTEC) 10 mg tablet Take 10 mg by mouth once daily. - omega-3/dha/epa/dpa/fish oil (OMEGA-3 2100 ORAL) Take by mouth. - Orlistat (KUSUM) 60 mg capsule Take 120 mg by mouth twice daily with meals. - POLYETHYLENE GLYCOL 3350 (MIRALAX ORAL) Take by mouth. - Acetaminophen 500 mg cap Take 2 tablets by mouth twice daily. - aspirin, enteric coated (ASPIRIN, ENTERIC COATED) 81 mg EC tablet Take 81 mg by mouth once daily. - docusate sodium (COLACE) 100 mg capsule Take 300 mg by mouth once daily. Problem List As Of Date 03/02/2022 Noted Resolved Hyperlipidemia [E78.5] 10/26/2015 Gout with manifestations [M10.9] 10/26/2015 Chronic low back pain without sciatica [M54.50,*10/26/2015 Elevated alkaline phosphatase level [R74.8] 11/01/2015 Bilateral leg edema [R60.0] 08/20/2017 Kidney stones (more content not included)... Normal [facility] CARDIAC PERF STRESS/PHARM on 11-23-2021 [place] CARDIAC PERF STRESS/PHARM * * *Final Report* * * DATE OF EXAM: Nov 23 2021 11:15AM MARY 0006 - NM CARDIAC PERF STRESS/PHARM / PROCEDURE REASON: R07.9-Chest pain, unspecified type * * * * Physician Interpretation * * * * [place] CTA Report: [facility] Date of service: 11/23/2021 9:55:01 AM CTAC interpreting physician: Sole March MD PATIENT: Name: MRS. ROSALBA ABEBE Age: 71 years Gender: F 1. Incidental Findings from limited non-diagnostic CTAC: - No distinct coronary calcifications. Redemonstrated fibrotic lung changes. Final PATIENT: Name: MRS. ROSALBA ABEBE Age: 71 years Gender: F CONCLUSIONS: 1. SPECT Perfusion Study: Normal. 2. There is no scintigraphic evidence for inducible ischemia. 3. No evidence of scarred myocardium. 4. Left ventricle is normal in size. The left ventricle systolic function is normal. 5. Right ventricle is normal in size. The right ventricle systolic function is normal. 6. This is a low risk scan. Gated Stress IR:3D LVEF % 71 Prior Study Comparison Prior nuclear cardiology exam was performed on 12/25/2018. Nuclear Med Report:1-Day Tc-Tetrofosmin Gated SPECT Myocardial Perfusion with Regadenoson Stress: Myocardial perfusion imaging was performed at rest 30 minutes following the IV injection of Tc-99m tetrofosmin. The patient received 0.4 mg of regadenoson, via rapid IV push, immediately followed by Tc-99m tetrofosmin IV. Gated post stress tomographic imaging was performed 30 to 60 minutes later. See administered doses below. [facility] Date of service: 11/23/2021 9:55:01 AM Ordering Physician: DEEPIKA HERNÁNDEZ. Requesting Physician: Indication: cp unspecified Interpreting physician: Katie Jordan MD Height: 160.02 cm BSA: 2.18 m? Weight: 107.05 kg BMI: 41.8 kg/m? CT Dose-Length Product(DLP): 86.0 mGy*cm. CT Dose Reduction Employed: Yes. Exam Type: Rest Stress Radiopharm: Tc-99m Tetrofosmin Tc-99m Tetrofosmin Dosage(mCi): 15.6 44.3 Atten Correction: performed performed Stress Agent: Regadenoson 0.4mg Supply provided from [facility] Resting Blood Press: 158/89 mmHg Image Quality The overall study imaging quality was deemed to be good. FINDINGS: Stress IR:3D Gated Stress IR:3D LVEF: 71 % ED Volume: 90 ml ES Volume: 26 ml TID: 0.94 Perfusion Findings Stress IR:3D - Summed Score=0 All segments demonstrate normal perfusion. Rest IR:3D - Summed Score=0 All segments demonstrate normal perfusion. Stress IR:3D Rest IR:3D Summed Score=0 Summed Score=0 LEFT VENTRICLE The left ventricle is normal in size. Left ventricular systolic function is normal. Right Ventricle The right ventricle is normal in size. Right ventricle systolic function is normal. Stress Test Findings: There is no scintigraphic evidence for inducible ischemia. There is no evidence of scarring. Final Stress ECG Report: [facility] Date of service: 11/23/2021 9:55:01 AM Ordering physician: DEEPIKA HERNÁNDEZ forestry support specialist: Maureen Garcia Welt Slasher: Olivia Sapp Interpreting physician: Keesha Alcantar MD Patient name: MRS. ROSALBA ABEBE Age: 71 years Gender: F Height: 160.02 cm BSA: 2.18 m? Weight: 107.05 kg BMI: 41.8 kg/m? Indication: Chest pressure / Chest tightness Stress ECG Conclusion: Conclusion: Normal Stress ECG Summary: The patient's resting heart rate was 93 bpm and blood pressure was 158/89 mmHg. The test was terminated due to end of protocol. Other symptoms during the test included SOB and headache. The maximum heart rate was 104 bpm, which is 70% of the predicted heart rate for age. Peak blood pressure was 173/81 mmHg. The double product achieved was [id number]. Medications: Last Used ZOLOFT LASIX IMDUR PRILOSEC ZOCOR FLOMAX ALBUTEROL INHALER ASPIRIN Resting ECG: Normal Sinus Rhythm and Occasional PVCs (3-7/Min) Symptoms at rest: No symptoms Pharamcologic Protocol: Regadenoson Stress Exercise Table: +-----+---+---+---+ Stage HR SYS ESA +-----+---+---+---+ 1 98 146 102 +-----+---+---+---+ 2 100 144 83 +-----+---+---+---+ 3 100 162 80 +-----+---+---+---+ 4 104 156 88 +-----+---+---+---+ 5 100 159 85 +-----+---+---+---+ 6 103 173 81 +-----+---+---+---+ +-----+---+---+---+ HR SYS ESA +-----+---+---+---+ Final 104 173 81 +-----+---+---+---+ Stress Observations: Resting HR: 93 bpm Peak HR: 104 bpm (70% MPHR) Resting BP: 158 / 89 mmHg Peak BP: 173 / 81 mmHg Rate Pressure Product (RPP): 58502 Stres (more content not included)... [facility] 11-22-2021 [facility]UD[facility] Telephone (CD[facility]ME) -- ROSALBA ABEBE ([id number]) 1950 F Date Time Provider Department 11/22/21 OLIVIA SAPP During your visit today, we recorded the following information about you: Olivia Sapp RN 11/22/2021 2:36 PM Signed Left message regarding reminder for stress test tomorrow and given instructions. Allergies As of Date: 11/22/2021 Noted Allergy Reaction AMOXICILLIN-POT CLAVULANATE 10/04/2017 6 - Diarrhea 8 - GI Upset ANESTHETICS - AMIDE TYPE - SELECT*09/28/2015 14 - Other: See Comments Comments: BECOMES AGGRESSIVE AND COMBATIVE. STOPS BREATHING DURING SURGERY. ASPIRIN 09/28/2015 11 - Vomiting 14 - Other: See Comments Comments: Blood in stool , adverse reaction BEE VENOM PROTEIN (HONEY BEE) 09/06/2020 7 - Swelling CORTISONE 09/28/2015 14 - Other: See Comments Comments: CAUSES PAIN AND BURNING DARVOCET-N 100 (PROPOXYPHENE N-AC*09/28/2015 8 - GI Upset 11 - Vomiting ESTROGENS 09/28/2015 14 - Other: See Comments Comments: ALL HORMONES, HAVE TRIED MANY. GIVES BREAKTHROUGH BLEEDING INFLUENZA VIRUS VACCINE WHOLE 12/03/2017 16 - Unknown IODINATED CONTRAST MEDIA 09/28/2015 4 - Hives 11 - Vomiting Comments: ALL DYES IODINE AND IODIDE CONTAINING PROD*09/28/2015 7 - Swelling LEVAQUIN (LEVOFLOXACIN) 09/28/2015 8 - GI Upset Comments: E.E.S. NSAIDS (NON-STEROIDAL ANTI-INFLAM*03/31/2013 16 - Unknown PAXIL (PAROXETINE HCL) 09/28/2015 14 - Other: See Comments Comments: Weight gain SPIDER VENOM 09/06/2020 7 - Swelling VENOM-WASP 09/06/2020 7 - Swelling Date Reviewed: 11/22/2021 Reviewed by: Ally Espinosa DO - Fully Assessed Reason for Visit: Reminder Call [[id number]] Prescriptions as of 11/22/2021 - sertraline (ZOLOFT) 50 mg tablet Take 1 tablet by mouth once daily. - traMADol (ULTRAM) 50 mg tablet Take 1 tablet by mouth twice daily as needed for up to 30 days. - Ipratropium Sewell (ATROVENT) 21 mcg (0.03 %) nasal spray USE 1 SPRAY NASALLY TWICE DAILY - primidone (MYSOLINE) 50 mg tablet Take 100 mg by mouth daily at bedtime. - furosemide (LASIX) 40 mg tablet Take 1.5 tablets by mouth twice daily. - isosorbide mononitrate ER (IMDUR) 30 mg 24 hr tablet Take 0.5 tablets by mouth once daily. - omeprazole (PRILOSEC) 40 mg capsule TAKE 1 CAPSULE EVERY DAY - fluticasone-vilanterol (BREO ELLIPTA) 200-25 mcg/dose inhaler INHALE 1 PUFF ONE TIME DAILY DIRECTED - temazepam (RESTORIL) 30 mg cap Take 1 capsule by mouth at bedtime as needed for up to 90 days. - Deandra, Zingiber officinalis, (DEANDRA EXTRACT) 250 mg cap Take 450 mg by mouth once daily. - Lactobacillus acidophilus (PROBIOTIC) 10 billion cell cap Take by mouth. Prebiotic - diphenhydramine HCl (BENADRYL ALLERGY ORAL) Take 2 tablets by mouth every 12 hours as needed. - carboxymethylcellulose sodium (ARTIFICIAL TEARS, CMC, OPHTHALMIC) Use in eyes. - sodium chloride (SALINE MIST) 0.65 % nasal spray Use 1 [place] in the nose as needed. - potassium chloride ER (K-DUR, KLOR-CON) 10 mEq tablet TAKE 2 TABLETS TWICE DAILY - simvastatin (ZOCOR) 40 mg tablet TAKE 1 TABLET EVERY DAY AT BEDTIME - tamsulosin (FLOMAX) 0.4 mg TAKE 1 CAPSULE EVERY DAY - montelukast (SINGULAIR) 10 mg tablet TAKE 1 TABLET AT BEDTIME - Ibandronate 150 mg tablet TAKE 1 TABLET ONE TIME PER MONTH - albuterol HFA (PROVENTIL HFA, VENTOLIN HFA) 90 mcg/actuation inhaler Inhale 2 Puffs as instructed every 4 hours as needed for wheezing/shortness of breath. - cholecalciferol (VITAMIN D) 1,000 unit tab tablet Take 1 tablet by mouth once daily. - guaiFENesin (MUCINEX) 600 mg 12 hr tablet Take 1 tablet by mouth every 12 hours as needed (cough). - OTC PRODUCT Super snooze night time sleep - cetirizine (ZYRTEC) 10 mg tablet Take 10 mg by mouth once daily. - omega-3/dha/epa/dpa/fish oil (OMEGA-3 2100 ORAL) Take by mouth. - Orlistat (KUSUM) 60 mg capsule Take 120 mg by mouth twice daily with meals. - POLYETHYLENE GLYCOL 3350 (MIRALAX ORAL) Take by mouth. - Acetaminophen 500 mg cap Take 2 tablets by mouth twice daily. - aspirin, enteric coated (ASPIRIN, ENTERIC COATED) 81 mg EC tablet Take 81 mg by mouth once daily. - docusate sodium (COLACE) 100 mg capsule Take 300 mg by mouth once daily. Problem List As Of Date 11/22/2021 Noted Resolved Hyperlipidemia [E78.5] 10/26/2015 Gout with manifestations [M10.9] 10/26/2015 Chronic low back pain without sciatica [M54.50,*10/26/2015 Elevated alkaline phosphatase level [R74.8] 11/01/2015 Bilateral leg edema [R60.0] 08/20/2017 Kidney stones [N20.0] 08/20/2017 Chronic insomnia [F51.04] 08/20/2017 Peripheral polyneuropathy (HCC) [G62.9] 08/20/2017 Left flank pain [R10.9] 09/28/2017 11/18/2021 Lung nodules [R91.8] 09/28/2017 Vitamin D deficiency [E55.9] 09/28/2017 Vitamin B12 deficiency [E53.8] 09/28/2017 ULYSSES (generalized anxiety disorder) [F41.1] 09/28/2017 Bacteria (more content not included)... Normal [facility] Basic metabolic 2000 panelon 10-13-2021 Anion gap [Moles/Vol] 11 mmol/L 9 - 18 mmol/L [facility] Calcium [Mass/Vol] 10.0 mg/dL 8.5 - 10. 2 mg/dL [facility] Chloride [Moles/Vol] 102 mmol/L 97 - 10 5 mmol/L [facility] CO2 [Moles/Vol] 25 mmol/L 22 - 30 mmol/L [facility] Creatinine [Mass/Vol] 0.72 mg/dL 0.58 - 0.96 mg/dL [facility] Estimated Glomerular Filtration Rate 90 mL/min/1.73m >=60 mL/min/1.7 3m [facility] Glucose [Mass/Vol] 103 mg/dL High 74 - 99 mg/dL [facility] Potassium [Moles/Vol] 4.5 mmol/L 3.7 - 5.1 mmol/L [facility] Sodium [Moles/Vol] 138 mmol/L 136 - 144 mmol/L [facility] Urea nitrogen [Mass/Vol] 19 mg/dL 7 - 21 mg/dL [facility] CNOVon 10-13-2021 CNOV Office Visit ([facility] ) -- ROSALBA ABEBE ([id number]) 1950 F Date Time Provider Department 10/13/21 12:00 PM JENELLE CAMPOS [facility] During your visit today, we recorded the following information about you: Pulse Blood pressure Weight 80/minute 151/74 112.9 kg Jenelle Campos APRN.CT TECHNICIAN 10/13/2021 12:56 PM Signed [facility] OUTPATIENT VISIT DATE October 13, 2021 OUTPATIENT VISIT TYPE ESTABLISHED PRIMARY CARE PHYSICIAN: Ally Espinosa DO CHIEF COMPLAINT: Patient presents with: Leg Edema Breathing Problem HISTORY OF PRESENT ILLNESS: Rosalba Abebe is a 71 year old female who presents today for a follow-up visit in the Heart Failure Clinic. The patient was last seen in office 04/26. The following changes were made at that time: increase lasix for 3 days for weight gain. Patient has had 0 hospitalizations and/or emergency room encounters in the last 12 months. Today, the patient reports continued issues with left-sided chest pain. She states the pain is worse with exertion. She appears tearful during examination when discussing this. She was seen by cardiology in July who recommended a stress test however, the patient declined at the time. She does not wish to go to ER. She wears 3 liters oxygen at night. She only has to use her oxygen at home during the day if her oxygen drops less than 90%. This happens sometimes in the morning when she wakes up. She endorses shortness of breath on exertion. Denies dizziness and lightheadedness. Follows low sodium diet. She continues to take her lasix 40 mg twice a day. She was told she could increase this to three times a day if she needs based on swelling in her legs. Last time she took an additional lasix was a few days ago. States she has been taking an additional lasix several times a week. Of note, she has been off propranolol since 09/15 as her neurologist instructed her to stop taking as this interferes with her primidone.Furthermore, she will be off her gabapentin completely on 10/16 as this has not been helping her neuropathy. IMPRESSION: NYHA Functional Class: II Stage: C heart failure Rosalba Abebe is a 70 year-old female who presents to the Heart Failure clinic to establish care following hospital discharge. She appears euvolemic on examination. Will have increase her lasix to 60 mg twice a day. BMP next week to assess kidney function. Will also start low dose nitrate for chest discomfort. Will reach out to cardiology regarding stress test. Informed patient to continue to monitor sodium and fluid intake. Daily exercise encouraged. Again, discussed going to ER for further Reviewed plan of care with patient. All questions answered at this time. PLAN AND RECOMMENDATIONS: 1. Chronic diastolic congestive heart failure (HCC) - ICD9: 428.32, 428.0, ICD10: I50.32 (primary diagnosis) - daily weights, call office if weight increases 3-4 lbs in a 1-4 day period -2 gm low sodium diet -activity as tolerated, rest breaks as needed -EF 61% From ECHO -increase lasix to 60 mg twice a day -BMP next week -15 mg isosorbide daily -HF clinic 04/25 or sooner if needed (pt wishes to schedule 6 mos) 2. Hypertension, essential - ICD9: 401.9, ICD10: I10 -BP optimal during visit 151/74 mmHg -encourage DASH/low sodium diet -encourage exercise with rest breaks as needed -goal BP <130/80 mmHg -continue home BP monitoring 3. Mixed hyperlipidemia - ICD9: 272.2, ICD10: E78.2 -continue simvastatin -lipid panel 11/22/2020: LDL 69, HDL 64, total 156 Follow up appointment with Dr. Hernández on 01/31 SOB: Yes: on exertion Fatigue: No Orthopnea:No PND: No Edema:Yes: Stable in her legs Chest Pain:Yes: that occurs with activity Palpitations:Yes, that last for less than 5 minutes and are associated with activity Dizziness/Lightheadedness: No Syncope:No Appetite: good Diet:low salt (2000 mg) Fluid Restriction: No Regular Exercise: No PAST MEDICAL HISTORY Diagnosis Date Anemia due to vitamin B12 deficiency due to dietary causes Benign essential hypertension Bone pain Chest pain possibly cardiac, continue baby aspirin daily Colon cancer screening 06/2016 cologuard test negative Electrocardiogram abnormal order for nuclear stress test to be done at [facility] Essential hypertension continue meds Fatty liver 11/2015 Fibromyalgia GERD (gastroesophageal reflux disease) take pantoprazole first thing in the morning on an empty stomach, at least 1/2 hour before eating Hyperlipidemia Insomnia Joint pain Kidney stone change tamsulosin to as needed Left flank pain Migraine consider trial of imitrex after stress test is completed and if it is wnl Mini stroke 2016 Morbid obesity (HCC) Multiple joint pain Multiple lacunar infarcts (HCC) Obesity, unspecified Obstruct (more content not included)... Normal [facility] NT PRO BNPon 10-13-2021 Natriuretic peptide.B prohormone N-Terminal [Mass/Vol] 464 pg/mL High <125 pg/mL [facility] CNOVon 04-26-2021 CNOV Office Visit ([facility] ) -- ROSALBA ABEBE ([id number]) 1950 F Date Time Provider Department 04/26/21 1:00 PM JENELLE CAMPOS [facility] During your visit today, we recorded the following information about you: Pulse Blood pressure Weight 59/minute 118/57 113.4 kg Jenelle Campos APRN.CLAUDIO 04/26/2021 1:47 PM Signed [facility] OUTPATIENT VISIT DATE April 26, 2021 OUTPATIENT VISIT TYPE NEW PRIMARY CARE PHYSICIAN: Ally Espinosa DO REFERRING PHYSICIAN: No referring provider defined for this encounter. CHIEF COMPLAINT: Patient presents with: Breathing Problem Leg Edema Heart Failure HISTORY OF PRESENT ILLNESS: Rosalba Abebe is a 70 year old female who presents today for a follow-up visit post hospitalization. Past medical history is significant for hyperlipidemia, gastroesophageal reflux disease, hypertension, insomnia, obstructive sleep apnea, osteopenia, chest pain and diastolic heart failure. The patient has had 1 hospital admissions in the past 12 months. The last admission was from 04/01 to 04/05 for management of acute sinusitis causing COPD exacerbation along with acute on chronic diastolic heart failure. She was given lasix, steroids and inhalers during her stay. Cardiology was consulted and increased her inderal to 40 mg TID from BID which did provide relief with chest discomfort. A desaturation study was performed in which the patient required 2 L of oxygen with activity. Admission weight: 245 lbs Discharge weight: 240 lbs Today, the patient reports feeling well. Wears oxygen at night or if her saturation is less than 90%. States her oxygen levels are always lower in the morning and can be 88%. Reports feeling minimally short of breath at that time. Shortness of breath occurs with physical activity. Swelling does occur in her legs and hands at times. She takes lasix 40 mg twice a day. Her inderal was increased to three times a day during her hospital stay, however she has decreased this to twice a day as her blood pressures were dropping. She uses three pillows to sleep. Reports chest discomfort occurs almost every night for which the inderal was increased. Discomfort lasts for a few minutes. Denies taking medication for this. Her weights at home range from 237 to 244 lbs. She follows fluid restriction and low sodium diet. Does not add salt to anything. IMPRESSION: NYHA Functional Class: II Stage: C heart failure Rosalba Abebe is a 70 year-old female who presents to the Heart Failure clinic to establish care following hospital discharge. She appears euvolemic on examination. However, her weight is up to 246 which is a lb higher than her admission weight. Dry weight was 240 lbs. With this, will increase lasix to 60 mg in the morning and she should continue to take her evening 40 mg. Instructed to take additional 20 mg lasix in the morning for three days starting on Sunday. She should call the office on Sunday to report weight. Encouraged continued fluid restriction along with low sodium diet. Continue to monitor blood pressure at home. She does use a wrist machine which may result in somewhat lower readings. Patient is scheduled to see pulmonary soon and will follow up regarding oxygen levels. Reviewed plan of care with patient. All questions answered at this time. PLAN AND RECOMMENDATIONS: ASSESSMENT/PLAN: 1. Chronic diastolic congestive heart failure (HCC) - ICD9: 428.32, 428.0, ICD10: I50.32 (primary diagnosis) - daily weights, call office if weight increases 3-4 lbs in a 1-4 day period -2 gm low sodium diet -activity as tolerated, rest breaks as needed -EF 61% From ECHO -take additional 20 mg lasix in the morning x 3 days -resume lasix 40 mg BID on Sunday -call office on Sunday with update on weight -follow up in HF Clinic on 08/30 at 1:00 or sooner if needed -BMP as previously ordered by PCP in 2 weeks 2. Hypertension, essential - ICD9: 401.9, ICD10: I10 -BP optimal during visit 118/57 mmHg -encourage DASH/low sodium diet -encourage exercise with rest breaks as needed -goal BP <130/80 mmHg -continue home BP monitoring 3. Mixed hyperlipidemia - ICD9: 272.2, ICD10: E78.2 -continue simvastatin -lipid panel 11/22/2020: LDL 69, HDL 64, total 156 Follow up appointment with Dr. Hernández on 08/10. SOB: Yes: with certain activities, climbing stairs Fatigue: No Orthopnea:Yes: 3 or more pillow(s) PND: No Edema:No Chest Pain:Yes: that occurs with rest and activity and lasts a few minutes Palpitations: No Dizziness/Lightheadedness: No Syncope:No Appetite: good Diet:low salt (2000 mg) Fluid Restriction: Yes: < 60 ounces Regular Exercise: No PAST MEDICAL HISTORY Diagnosis Date - Anemia due to vitamin B12 deficiency due to dietary causes - Benign essential hypertension - Bone pain - Ches (more content not included)... [facility] 04-07-2021 [facility] Telephone (IA2N) -- ROSALBA ABEBE ([id number]) 1950 F Date Time Provider Department 04/07/21 VADIM MAGANA During your visit today, we recorded the following information about you: Allergies As of Date: 04/07/2021 Noted Allergy Reaction AMOXICILLIN-POT CLAVULANATE 10/04/2017 6 - Diarrhea 8 - GI Upset ANESTHETICS - AMIDE TYPE - SELECT*09/28/2015 14 - Other: See Comments Comments: BECOMES AGGRESSIVE AND COMBATIVE. STOPS BREATHING DURING SURGERY. ASPIRIN 09/28/2015 11 - Vomiting 14 - Other: See Comments Comments: Blood in stool , adverse reaction BEE VENOM PROTEIN (HONEY BEE) 09/06/2020 7 - Swelling CORTISONE 09/28/2015 14 - Other: See Comments Comments: CAUSES PAIN AND BURNING DARVOCET-N 100 (PROPOXYPHENE N-AC*09/28/2015 8 - GI Upset 11 - Vomiting ESTROGENS 09/28/2015 14 - Other: See Comments Comments: ALL HORMONES, HAVE TRIED MANY. GIVES BREAKTHROUGH BLEEDING INFLUENZA VIRUS VACCINE WHOLE 12/03/2017 16 - Unknown IODINATED CONTRAST MEDIA 09/28/2015 4 - Hives 11 - Vomiting Comments: ALL DYES IODINE AND IODIDE CONTAINING PROD*09/28/2015 7 - Swelling LEVAQUIN (LEVOFLOXACIN) 09/28/2015 8 - GI Upset Comments: E.E.S. NSAIDS (NON-STEROIDAL ANTI-INFLAM*03/31/2013 16 - Unknown PAXIL (PAROXETINE HCL) 09/28/2015 14 - Other: See Comments Comments: Weight gain SPIDER VENOM 09/06/2020 7 - Swelling VENOM-WASP 09/06/2020 7 - Swelling Date Reviewed: 04/04/2021 Reviewed by: Liv Berg RN - Fully Assessed Reason for Visit: Search Director - Other [[id number]] Cmt: CHF Prescriptions as of 07/20/2021 - tamsulosin (FLOMAX) 0.4 mg TAKE 1 CAPSULE EVERY DAY - Ibandronate 150 mg tablet TAKE 1 TABLET ONE TIME PER MONTH - gabapentin (NEURONTIN) 300 mg capsule TAKE 3 CAPSULES EVERY DAY AT BEDTIME - montelukast (SINGULAIR) 10 mg tablet TAKE 1 TABLET AT BEDTIME - hydrOXYzine HCl (ATARAX) 25 mg tablet Take 1 tablet by mouth three times daily as needed (for itching). - sertraline (ZOLOFT) 25 mg tablet Take 1 tablet by mouth once daily. - simvastatin (ZOCOR) 40 mg tablet Take 1 tablet by mouth daily at bedtime. - furosemide (LASIX) 40 mg tablet Take 1 tablet by mouth twice daily. - potassium chloride (K-TAB) 10 mEq tablet Take 2 tablets by mouth twice daily. - nystatin (MYCOSTATIN) 100,000 unit/mL suspension Take 5 mL by mouth four times daily as needed. Swish and swallow. - omeprazole (PRILOSEC) 40 mg capsule Take 1 capsule by mouth once daily. - temazepam (RESTORIL) 30 mg cap Take 1 capsule by mouth at bedtime as needed for up to 90 days. - benzonatate (TESSALON PERLES) 100 mg capsule Take 1 capsule by mouth three times daily as needed. FOR COUGHING. - fluticasone-vilanterol (BREO ELLIPTA) 200-25 mcg/dose inhaler Inhale 1 Inhalation as instructed once daily. - albuterol HFA (PROVENTIL HFA, VENTOLIN HFA) 90 mcg/actuation inhaler Inhale 2 Puffs as instructed every 4 hours as needed for wheezing/shortness of breath. - TRIAMCINOLONE ACETONIDE TOPICAL Apply 1 % to affected area. - propranolol (INDERAL) 40 mg tablet Take 1 tablet by mouth twice daily. - cholecalciferol (VITAMIN D) 1,000 unit tab tablet Take 1 tablet by mouth once daily. - guaiFENesin (MUCINEX) 600 mg 12 hr tablet Take 1 tablet by mouth every 12 hours as needed (cough). - Ipratropium Sewell (ATROVENT) 21 mcg (0.03 %) nasal spray USE 1 SPRAY IN THE NOSE TWICE DAILY. - allopurinol (ZYLOPRIM) 300 mg tablet TAKE 1 TABLET EVERY DAY - OTC PRODUCT L tryptophan - OTC PRODUCT Super snooze night time sleep - cetirizine (ZYRTEC) 10 mg tablet Take 10 mg by mouth once daily. - omega-3/dha/epa/dpa/fish oil (OMEGA-3 2100 ORAL) Take by mouth. - Orlistat (KUSUM) 60 mg capsule Take 120 mg by mouth twice daily with meals. - POLYETHYLENE GLYCOL 3350 (MIRALAX ORAL) Take by mouth. - Acetaminophen 500 mg cap Take 2 tablets by mouth twice daily. - aspirin, enteric coated (ASPIRIN, ENTERIC COATED) 81 mg EC tablet Take 81 mg by mouth once daily. - docusate sodium (COLACE) 100 mg capsule Take 300 mg by mouth once daily. Problem List As Of Date 04/07/2021 Noted Resolved Hyperlipidemia [E78.5] 10/26/2015 Gout with manifestations [M10.9] 10/26/2015 Chronic low back pain without sciatica [M54.50,*10/26/2015 Elevated alkaline phosphatase level [R74.8] 11/01/2015 Bilateral leg edema [R60.0] 08/20/2017 Kidney stones [N20.0] 08/20/2017 Chronic insomnia [F51.04] 08/20/2017 Peripheral polyneuropathy (HCC) [G62.9] 08/20/2017 Left flank pain [R10.9] 09/28/2017 Lung nodules [R91.8] 09/28/2017 Vitamin D deficiency [E55.9] 09/28/2017 Vitamin B12 deficiency [E53.8] 09/28/2017 ULYSSES (generalized anxiety disorder) [F41.1] 09/28/2017 Bacterial sinusitis [J32.9, B96.89] 09/28/2017 07/19/2018 Obesity, Class III, BMI >= 40 [E66.01] 10/05/2017 Status post total left knee replacement [Z96.65*10/24/2017 Status post tot (more content not included)... Normal [facility] Basic Metabolic Panlon 04-05 Anion gap [Moles/Vol] 13 mmol/L Normal 9-18 [facility] Comment on above: Performed By: #### C BC, MG1, BMP ####[facility] [address] [place] [phone] Calcium [Mass/Vol] 10.3 mg/dL High 8.5-10.2 [facility] Comment on above: Performed By: #### C BC, MG1, BMP ####[facility] [address] [place] [phone] Chloride [Moles/Vol] 94 mmol/L Low 97-105 [facility] Comment on above: Performed By: #### C BC, MG1, BMP ####[facility] [address] [place] [phone] CO2 [Moles/Vol] 27 mmol/L Normal 22-30 [facility] Comment on above: Performed By: #### C BC, MG1, BMP ####[facility] [address] Creatinine [Mass/Vol] 0.94 mg/dL Normal 0.58-0.96 [facility] Comment on above: Performed By: #### C ACE MG1, RC ####[facility] [address] [place] [phone] eGFR- Amer. >60 Normal [facility] Comment on above: Performed By: #### C ACE MG1, BMP ####[facility] [address] [place] [id number] eGFR-All Other Races 59 . Normal [facility] Comment on above: Result Comment: eGFR (Estimated GFR) Units of measure: mL/min/1.73 meters squared eGFR is derived from the reexpressed MDRD Study equation using the following parameters: serum creatinine, age, gender and race. The creatinine assay has been calibrated to be traceable to IDMS. An eGFR <60 mL/min/1.73m2 for >3 months is consistent with chronic kidney disease. Refer to KDOQI guidelines for clinical interpretation. In patients with unstable renal function, e.g. those with acute kidney injury, the eGFR may not accurately reflect actual GFR. Note: On 04/16/2021, the eGFR calculation will be updated to the NKF-ASN Task Force recommended 2020 CKD-EPI creatinine equation which does not include a race variable. For more information or to access a 2020 CKD-EPI calculator, visit the National Kidney Foundation website at kidney.org/professionals/kdoqi/gfr_calculator. Performed By: #### C ACE MG1, RC ####[facility] I[address]jm[address]851 [address] Glucose [Mass/Vol] 107 mg/dL High 74-99 [facility] Comment on above: Result Comment: The Citizen Of [place] Diabetes Association (ADA) provides guidance for cutoff values for fasting glucose and random glucose. The ADA defines fasting as no caloric intake for at least 8 hours. Fasting plasma glucose results between 100 to 125 mg/dL indicate increased risk for diabetes (prediabetes). Fasting plasma glucose results greater than or equal to 126 mg/dL meet the criteria for diagnosis of diabetes. In the absence of unequivocal hyperglycemia, results should be confirmed by repeat testing. In a patient with classic symptoms of hyperglycemia or hyperglycemic crisis, random plasma glucose results greater than or equal to 200 mg/dL meet the criteria for diagnosis of diabetes. Reference: Standards of Medical Care in Diabetes 2016, Citizen [place] Diabetes Association. Diabetes Care. 2016.39(Suppl 1). Performed By: #### FRANCESCA LAWS BMP ####[facility] [address] [place] [address] Potassium [Moles/Vol] 4.2 mmol/L Normal 3.7-5.1 [facility] Comment on above: Performed By: #### Angelica BELLO MG1, BMP ####[place] [address] Sodium [Moles/Vol] 134 mmol/L Low 136-144 [facility] Comment on above: Performed By: #### FRANCESCA LAWS, BMP ####[place] [address] Urea nitrogen [Mass/Vol] 30 mg/dL High 7-21 [facility] Comment on above: Performed By: #### FRANCESCA LAWS, BMP ####[place] [address] CBCon 04-05-2021 Absolute nRBC <0.01 Normal <0.01 [facility] Comment on above: Performed By: #### MG EUSEBIA1, BMP ####[place] [address] Erythrocyte distribution width (RBC) [Ratio] 13.3 % Normal 11.5-15.0 [facility] Comment on above: Performed By: #### Angelica BELLO MG1, BMP ####[place] [address] Hematocrit (Bld) [Volume fraction] 46.9 % High 36.0-46.0 [facility] Comment on above: Performed By: #### Angelica BELLO MG1, BMP ####[place] [address] Hemoglobin (Bld) [Mass/Vol] 14.8 g/dL Normal 11.5-15.5 [facility] Comment on above: Performed By: #### Angelica BELLO MG1, BMP ####[facility] [address] [place] [address] MCH 31.0 pG Normal 26.0-34.0 [facility] Comment on above: Performed By: #### FRANCESCA LAWS, RC ####[facility] [address] [place] [address] MCHC (RBC) [Mass/Vol] 31.6 g/dL Normal 30.5-36.0 [facility] Comment on above: Performed By: #### FRANCESCA LAWS, RC ####[facility] [address] [place] [address] MCV (RBC) [Entitic vol] 98.3 fL Normal 80.0-100.0 [facility] Comment on above: Performed By: #### FRANCESCA LAWS, RC ####[facility] [address] [place] [address] Platelet mean volume (Bld) [Entitic vol] 8.9 fL Low 9.0-12.7 [facility] Comment on above: Performed By: #### FRANCESCA LAWS, RC ####[facility] [address] [place] [address] Platelets (Bld) [#/Vol] 436 10*3/uL High 150-400 [facility] Comment on above: Performed By: #### FRANCESCA LAWS, BMP ####[facility] [address] [place] [address] RBC (Bld) [#/Vol] 4.77 10*6/uL Normal 3.90-5.20 [facility] Comment on above: Performed By: #### FRANCESCA LAWS, BMP ####[facility] [address] [place] [address] WBC (Bld) [#/Vol] 17.96 10*3/uL High 3.70-11.00 [facility] Comment on above: Performed By: #### MG EUSEBIA1, BMP ####[facility] [address] [place] [address] CNDSon 04-05-2021 CNDS HNO ID: [id number] Author: Gayla Olivas MD Service: Hospital Medicine Author Type: Physician Type: Discharge Summary Filed: 04/09/2021 11:27 AM Note Text: DISCHARGE SUMMARY PATIENT NAME: Rosalba Abebe Code Status: Not on file Highest Readmission Risk Score: 26 The 30 day readmissions risk score is derived from an internally validated risk model which evaluates patient level characteristics, utilization history, medication orders and lab results up until the day of discharge. Patients with a score of 40 or above are considered highest risk for readmission. Specific patient level drivers will be listed at the bottom of the summary. Admission Information Admission Information ADMIT DATE: 04/01/2021 DISCHARGE DATE: 04/05/2021 MY DOCTORS AND MEDICAL TEAM: My Main Hospital Doctor: Gayla Olivas MD Primary Care Provider: Ally Espinosa DO My Medical Team Members: Treatment Team: Attending Provider: Gayla Olivas MD Consulting: Nehal Calle MD Consulting: Deepika Hernández DO MY CONDITION AT DISCHARGE: Stable REASON I WAS IN THE HOSPITAL: 70 yo f with h/o HTN, HLD, TIA, COPD/asthma presents with worsening SOB x 1-2 weeks,sinus pressure with greenish rhinorrhea , orthopnea,chest discomfort (precordial/retrosternal ),left flank pain and swelling on upper and lower extremities.She takes lasix as needed for leg swelling. CT chest Showed areas of bronchiectasis and fibrotic change,mosaic attenuation suggesting small airways/small vessels disease,unchanged borderline mediastinal adenopathy, possibly reactive,dilated pulmonary artery suggesting pulmonary arterial hypertension. V/Q scan showed low probability for PE EKG:NSR,troponin, UA was negative Echo 04/04/21 EF 61,Grade II left ventricular diastolic dysfunction,mod LA dilation,mild RA dilation,mod MVR,mild aortic stenosis--- Findings unchanged since echo She was diagnosed With acute sinusitis causing COPD exacerbation,acute on chronic DCHF . She was seen by the log chipper and picking machine operator. She was treated with lasix, steroids,inhlaers ,augmentin and oxygen supplementation. The picking machine operator increased her inderal from 40mg BID to 40mg TID Her Protonix was increased to 40mg daily with resolution of her chest discomfort and she Was advised a GI consult if the chest discomfort reoccurs. She felt better with the above treatment.She had a desat study which showed she needs 2L of oxygen with activity SUMMARY OF WHAT HAPPENED WHILE I WAS IN THE HOSPITAL: See above OTHER PROBLEMS/DIAGNOSIS: Active Problems: Acute on chronic diastolic CHF Bilateral leg edema Hypertension, essential Hypoxia Nonrheumatic aortic valve stenosis Nonrheumatic mitral valve regurgitation Resolved Problems: * No resolved hospital problems. * OPERATIONS PERFORMED WHILE IN THE HOSPITAL: None IMPORTANT TEST/PROCEDURES: Echocardiogram EKG Ventilation/perfusion scan Lower extremity ultrasound CT chest Chest x-ray Desaturation study TEST RESULTS NOT AVAILABLE AT THIS TIME: No pending results Discharge Disposition Discharge Disposition: Home With Self Care Activity When You Leave the Hospital Resume pre-hospital activity As tolerated Diet Instructions Low Cholesterol Low Fat Low Triglycerides No Added Salt Resume your pre-hospital diet Call Your Doctor If For the following: Any Health Questions or concerns Follow Up Appointments Follow-Up Appointment When: In 1 week Patient/Parents to call for appointment?: Yes Ally Espinosa DO [phone] [address] [facility] [address] PCP Requested Referral Follow-Up Appointment When: In: Comment - 1 to 2 weeks Deepika Hernández DO [phone] [address] PCP Requested Referral Follow-Up Appointment Will need outpatient lung function test and follow-up CT chest. When: In: Comment - 1 to 2 weeks Dolly Alaniz MD [phone] [address] [facility] [address] PCP Requested Referral Additional Provider to Provider Information: See discharge summary/medications Treatment Team: Consulting: Nehal Calle MD Consulting: Deepika Hernández DO Transitions of Care Critical Issues: See discharge summary/medications LABS AND PROCEDURES PENDING AT DISCHARGE: FOLLOW-UP APPOINTMENTS ALREADY SCHEDULED WITH [facility]: Future Appointments Date Time Provider Department Center 04/19/2021 2:20 PM Ally Espinosa DO [facility] [address] 05/06/2021 2:00 PM Respiratory Therapist [facility] [place] 05/06/2021 2:45 PM Respiratory Therapist [facility] [place] 05/06/2021 3:00 PM [facility] [place] 05/06/2021 3:15 PM Nehal Calle MD [facility] [place] 07/22/2021 3:00 PM Deepika Hernández, DO [facility] Discharge Information Row Name Admission (Discharged) from 2 (more content not included)... Normal [facility] CONSULT PROGon 04-05-2021 CONSULT PROG HNO ID: [id number] Author: Nehal Calle MD Service: Pulmonary Disease Author Type: Physician Type: Consult Progress Note Filed: 04/05/2021 3:02 PM Note Text: [facility]-PATIENT CONSULT PROGRESS NOTE SERVICE DATE: 04/05/2021 ASSESSMENT/RECOMMENDATIONS : 1. Acute hypoxemic respiratory failure -On RA -Borderline desaturation study 2. 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 Bronchiectasis -Acapella device 4. ILD -Autoimmune serologies pending -Will need follow-up chest imaging Plan discussed in detail with patient, RN and primary attending. Patient verbalizes understanding and is in agreement with the current management plan. Total time spent in patient care includes but is not limited to patient/ family discussions, collaborative discussions with other healthcare providers, review of medical records, review of laboratory tests, radiology images/ results, microbiology and pathology data. Nehal Calle MD Staff, Respiratory [facility] Pager #[phone] SUBJECTIVE CHIEF COMPLAINT: No complaints INTERVAL HPI:Rosalba Abebe is a 70 year old female former smoker with PMH significant for HTN, hepatic steatosis, GERD, HLD, SAM admitted with hypoxemia due to CHF and COPD. ILD on CT with mild bronchiectasis and mosaic attenuation consistent with small airways disease. Improved with diuretics, steroids and inhaled therapy. Currently on RA MEDICATIONS: Current Facility-Administered Medications Medication Dose Route Frequency - amoxicillin-clavulanic acid 875 mg tab(s) (AUGMENTIN) 875 mg ORAL q 12 H - lactobacillus rhamnosus 10 billion cell (CULTURELLE) capsule 1 capsule ORAL DAILY - propranolol 40 mg tab(s) (INDERAL) 40 mg ORAL TID - furosemide 20 mg injection (LASIX) 20 mg INTRAVENOUS TID - fluticasone-vilanterol 200-25 mcg/dose 1 Inhalation (BREO ELLIPTA) 1 Inhalation INHALATION DAILY - guaiFENesin 600 mg ER tab(s) (MUCINEX) 600 mg ORAL q 12 H - predniSONE 40 mg tab(s) (DELTASONE) 40 mg ORAL DAILY - pantoprazole DR 40 mg tab(s) (PROTONIX) 40 mg ORAL DAILY (6 AM) - potassium chloride ER 20 mEq tab(s) (K-DUR, KLOR-CON) 20 mEq ORAL BID - cholecalciferol 3,000 Units tab(s) (VITAMIN D3) 3,000 Units ORAL DAILY - oxyCODONE-acetaminophen 5-325 mg 1-2 tablet (PERCOCET) 1-2 tablet ORAL q 6 H PRN - gabapentin 900 mg cap(s) (NEURONTIN) 900 mg ORAL AT BEDTIME - hydrOXYzine HCl 25 mg tab(s) (ATARAX) 25 mg ORAL TID PRN - cetirizine 10 mg tab(s) (ZyrTEC) 10 mg ORAL DAILY - simvastatin 40 mg tab(s) (ZOCOR) 40 mg ORAL AT BEDTIME - tamsulosin 0.4 mg cap(s) (FLOMAX) 0.4 mg ORAL DAILY - Orlistat cap 120 mg 120 mg ORAL BID w MEALS - allopurinol 300 mg tab(s) (ZYLOPRIM) 300 mg ORAL DAILY - docusate sodium 300 mg cap(s) (COLACE) 300 mg ORAL DAILY - montelukast 10 mg tab(s) (SINGULAIR) 10 mg ORAL AT BEDTIME - aspirin, enteric coated 81 mg tab(s) 81 mg ORAL DAILY - temazepam 30 mg cap(s) (RESTORIL) 30 mg ORAL HS PRN - sertraline 25 mg tab(s) (ZOLOFT) 25 mg ORAL DAILY - NaCl 0.9% iv flush bag 20 mL INTRAVENOUS PRN - sodium chloride 0.9 % (flush) 3-5 mL (BD POSIFLUSH) 3-5 mL INTRAVENOUS q 12 H - sodium chloride 0.9 % (flush) 2-10 mL (BD POSIFLUSH) 2-10 mL INTRAVENOUS q 12 H - ondansetron orally disintegrating 4 mg tab(s) (ZOFRAN ODT) 4 mg ORAL q 6 H PRN Or - ondansetron (PF) 4 mg injection (ZOFRAN) 4 mg INTRAVENOUS q 6 H PRN - aluminum-magnesium hydroxide-simethicone 200-200-20 mg/5 mL 30 mL (MAALOX,MYLANTA,MAG-AL PLUS) 30 mL ORAL q 6 H PRN - magnesium hydroxide 400 mg/5 mL 30 mL (MOM) 30 mL ORAL DAILY PRN - bisacodyl 10 mg suppository (DULCOLAX) 10 mg RECTAL DAILY PRN - acetaminophen 650 mg tab(s) (TYLENOL) 650 mg ORAL q 6 H PRN - ipratropium-albuterol 3 mL nebulizer solution (DUONEB) 3 mL INHALATION q 4 H while awake - perflutren lipid microspheres 1.1 mg/mL 1.3 mL injection (DEFINITY) 1.3 mL INTRAVENOUS DIRECTED PRN CURRENT ALLERGIES: ALLERGIES Allergen Reactions - Amoxicillin-Pot Cla* Diarrhea, GI Upset - Anesthetics - Amide* Other: See Comments BECOMES AGGRESSIVE AND COMBATIVE. STOPS BREATHING DURING SURGERY. - Aspirin Vomiting, Other: See Comments Blood in stool , adverse reaction - Bee Venom Protein (* Swelling - Cortisone Other: See Comments CAUSES PAIN AND BURNING - Darvocet-N 100 [Pro* GI Upset, Vomiting - Estrogens Other: See Comments ALL HORMONES, HAVE TRIED MANY. GIVES BREAKTHROUGH BLEEDING - Influenza Virus Vac* Unknown - Iodinated Contrast * Hives, Vomiting ALL DYES - Iodine And Iodide C* Swelling - Levaquin [Levofloxa* GI Upset E.E.S. - Nsaids (Non-Steroid* Unknown - Paxil [Paroxetine H* Other: See Comments Weight gain - Spider Venom Swelling - Venom-Wasp Swelling Patient Vitals for the past 24 hrs: (more content not included)... Normal [facility] Magnesiumon 04-05-2021 Magnesium [Mass/Vol] 2.3 mg/dL Normal 1.7-2.3 [facility] Comment on above: Performed By: #### C BC, MG1, BMP ####[facility] [address] [place], [place] [phone] NURSING PROGon 04-05-2021 NURSING PROG HNO ID: [id number] Author: Liv Berg RN Service: Nursing Author Type: Registered Nurse Type: Nursing Progress Note Filed: 04/05/2021 1:57 PM Note Text: Nursing Progress Note Patient Name: Rosalba Abebe Patient Location: [facility]210/[id number] Daily Note: 1357 - Dr. Calle bedside hold Lasix. This note was completed by: Liv Berg [facility] HEALTH 04-04-2021 ALLIED HEALTH HNO ID: [id number] Author: JUANITO Diaz Service: Radiology Author Type: Technologist Type: Allied Health Filed: 04/04/2021 5:19 PM Note Text: RADIOLOGY SERVICE PROGRESS NOTE SERVICE DATE: 04/04/2021 SERVICE TIME: 5:19 PM PATIENT IDENTITY VERIFICATION COMPLETED USING TWO (2) STANDARD IDENTIFIERS: Name and Date of confirmed by patient verbally and Name and Date of confirmed by identification band FALL SCREENING: Has the patient had 2 falls in the last year or 1 fall with injury or currently using an Ambulatory Assistive Device (Walker, Cane, Wheelchair, Crutches, etc.)? Inpatient: Screened on floor PATIENT GENDER DATA: .female : No ALLERGIES: Reviewed and unchanged MEDICATIONS REVIEWED: Not applicable PATIENT RELEVANT IMPLANT DATA REVIEWED: Not Applicable CREATININE: Creatinine Date Value Ref Range Status 04/04/2021 0.92 0.58 - 0.96 mg/dL Final 04/03/2021 0.68 0.58 - 0.96 mg/dL Final 04/02/2021 0.92 0.58 - 0.96 mg/dL Final eGFR-All Other Races Date Value Ref Range Status 04/04/2021 >60 . Final Comment: eGFR (Estimated GFR) Units of measure: mL/min/1.73 meters squared eGFR is derived from the reexpressed MDRD Study equation using the following parameters: serum creatinine, age, gender and race. The creatinine assay has been calibrated to be traceable to IDMS. An eGFR <60 mL/min/1.73m2 for >3 months is consistent with chronic kidney disease. Refer to KDOQI guidelines for clinical interpretation. In patients with unstable renal function, e.g. those with acute kidney injury, the eGFR may not accurately reflect actual GFR. Note: On 04/16/2021, the eGFR calculation will be updated to the NKF-ASN Task Force recommended 2020 CKD-EPI creatinine equation which does not include a race variable. For more information or to access a 2020 CKD-EPI calculator, visit the National Kidney Foundation website at kidney.org/professionals/k doqi/gfr_calculator. eGFR- Date Value Ref Range Status 04/04/2021 >60 Final P.O.C.T. RESULTS: N/A April 04, [address] PERFORMED: No IV SITE: Inpatient - refer to LDA documentation POST EXAM PIV STATUS: Inpatient see LDA documentation PROCEDURE TYPE: VQ Scan: 5 mCi of Tc99m MAA was administered IV. ADMINISTRATION TIME: 17:10 PATIENT DISCHARGED TO: Patient taken to IP transport area for return to RNF/ICU/ED. A Diagnostic radioactive procedure has taken place, with no further precautions necessary other than routine body substance precautions. More information regarding radiation safety can be found using this link: [email or web address] [email or web address]%20Nuclea r%20Medicine%20Procedures. pdf SIGNATURE: JUANITO Diaz PATIENT NAME: Rosalba Abebe DATE: April 04, 2021 TIME: 5:19 PM PAGER/CONTACT #: Normal [facility] IVAN IFA Titer [place] 022 IVAN IFA Titer Bill Billed for services performed Normal [facility] Comment on above: Performed By: #### A PADMAJA SHAHID, CCP, ANAIFS ####[facility] [address] [place], [place] [phone] IVAN by IFAon 04-04-2021 IVAN Pattern Nucleolar Normal [facility] Comment on above: Performed By: #### A PADMAJA SHAHID, CCP, ANAIFS ####[facility] [place], [place] [phone] IVAN Titer 1:160 Critically abnormal Negative [facility] Comment on above: Performed By: #### A PADMAJA SHAHID, CCP, ANAIFS ####[facility] [address] [place], [place] [phone] Nuclear Ab IF (S) [Titer] Positive Critically abnormal Negative [facility] Comment on above: Result Comment: Norm al range : negative at <1:80 serum dilution. Test performed using Indirect Fluorescence Immunoassay technology (IFA) using HEp-2 cells. 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 Interpretation: Positive for P-ANCA. This can be due to other neutrophil granules cationic enzymes or non-specific reactivity. Anti-nuclear antibody test may be considered. Clinical correlation is required. Normal [facility] Comment on above: Performed By: #### P ANBLL, ANCA, CANBLL ####[place] [phone] C-ANCA Fluorescence Negative Normal Negative [facility] Comment on above: Performed By: #### P ANBLL, ANCA, CANBLL ####[place] [phone] Myeloperoxidase Ab <0.2 Normal <1.0 [facility] Comment on above: Performed By: #### P ANBLL, ANCA, CANBLL ####[place] [phone] P-ANCA Fluorescence Positive Critically abnormal Negative [facility] Comment on above: Performed By: #### P ANBLL, ANCA, CANBLL ####[facility] [address] [place] [phone] Proteinase-3 Ab <0.2 Normal <1.0 [facility] Comment on above: Performed By: #### P ANBLL, ANCA, CANBLL ####[place] [phone] Staff Review Reviewed by Nick Vaughn, Ph.D, D([facility]) [facility] Comment on above: Performed By: #### P ANBLL, ANCA, CANBLL ####[place] [id number] [place], [place] [phone] CANCA Reflexon 04-04-2021 CANCA Reflex Billed for services performed [facility] Comment on above: Performed By: #### P ANBLL, ANCA, CANBLL ####[address] [phone] CBCon 04-04-2021 Absolute nRBC <0.01 Normal <0.01 [facility] Comment on above: Performed By: #### C MP, MG1, CBC, LIPA ####[place] [address] Erythrocyte distribution width (RBC) [Ratio] 13.4 % Normal 11.5-15.0 [facility] Comment on above: Performed By: #### C MP, MG1, CBC, LIPA ####[facility] [address] [place] [address] Hematocrit (Bld) [Volume fraction] 42.8 % Normal 36.0-46.0 [facility] Comment on above: Performed By: #### C MP, MG1, CBC, LIPA ####[facility] [address] [place], [place] [phone] Hemoglobin (Bld) [Mass/Vol] 13.9 g/dL Normal 11.5-15.5 [facility] Comment on above: Performed By: #### C MP, MG1, CBC, LIPA ####[facility] [address] [place], [place] [phone] MCH 31.5 pG Normal 26.0-34.0 [facility] Comment on above: Performed By: #### C MP, MG1, CBC, LIPA ####[facility] [address] [place], [place] [phone] MCHC (RBC) [Mass/Vol] 32.5 g/dL Normal 30.5-36.0 [facility] Comment on above: Performed By: #### C MP, MG1, CBC, LIPA ####[facility] [address] [place] [address] MCV (RBC) [Entitic vol] 97.1 fL Normal 80.0-100.0 [facility] Comment on above: Performed By: #### C MP, MG1, CBC, LIPA ####[facility] [address] [place] [address] Platelet mean volume (Bld) [Entitic vol] 9.2 fL Normal 9.0-12.7 [facility] Comment on above: Performed By: #### C MP, MG1, CBC, LIPA ####[facility] [address] [place] [address] Platelets (Bld) [#/Vol] 455 10*3/uL High 150-400 [facility] Comment on above: Performed By: #### C MP, MG1, CBC, LIPA ####[facility] [address] [place] [address] RBC (Bld) [#/Vol] 4.41 10*6/uL Normal 3.90-5.20 [facility] Comment on above: Performed By: #### C MP, MG1, CBC, LIPA ####[facility] [address] [place] [address] WBC (Bld) [#/Vol] 19.08 10*3/uL High 3.70-11.00 [facility] Comment on above: Performed By: #### C MP, MG1, CBC, LIPA ####[facility] [address] [place] [address] CCP Antibody, IgGon 04-04-19 22 CCP Antibody, IgG <15 Normal <20 [facility] Comment on above: Result Comment: < 20 units: Negative 20-39 units: Weak Positive 40-59 units: Moderate Positive > 60 units: Strong Positive The following results were obtained with the [employer] QUANTA Lite CCP3 IgG LEE. Anti-CCP values obtained with different manufacturers' assay methods may not be used interchangeably. The magnitude of the reported IgG levels cannot be correlated to an endpoint titer. Performed By: #### A NABLL, ENAID, CCP, ANAIFS ####[facility] [place], [place] [phone] CONSULT PROGon 04-04-2021 CONSULT PROG HNO ID: [id number] Author: Nehal Calle MD Service: Pulmonary Disease Author Type: Physician Type: Consult Progress Note Filed: 04/04/2021 12:12 PM Note Text: [facility] PULMONARY MEDICINE IN-PATIENT CONSULT PROGRESS NOTE SERVICE DATE: 04/04/2021 ASSESSMENT/RECOMMENDATIONS : 1. Acute hypoxemic respiratory failure -Currently on 2 L -Target SpO2 90% or greater -Can wean oxygen as SpO2 97% -Bronchiectasis exacerbation 2. CHF -Continue diuresis -Mild elevation of BNP 3. Mosaic attenuation and mild bronchiectasis on CT -Continue inhaled therapy -Mucinex -Acapella device 4. ILD -Peripheral reticular markings -Not typical UIP pattern -Check autoimmune serologies Plan discussed in detail with patient, RN and primary attending. Patient verbalizes understanding and is in agreement with the current management plan. Total time spent in patient care includes but is not limited to patient/ family discussions, collaborative discussions with other healthcare providers, review of medical records, review of laboratory tests, radiology images/ results, microbiology and pathology data. Nehal Calle MD Staff, Respiratory [facility] Pager #[phone] SUBJECTIVE CHIEF COMPLAINT: Chest tightness INTERVAL HPI:Rosalba Abebe is a 70 year old morbidly obese female former smoker with PMH significant for HTN, hepatic steatosis, GERD, HLD, SAM, pulmonary nodularity admitted with hypoxemia due to COPD and CHF exacerbation. Has reticular markings but no UIP pattern. Alpha 1 normal. Feeling better with persistent chest tightness. Bringing up some phlegm and has dark nasal drainage. ROS: No fevers or chills No chest pian but has mid sternal chest tightness, No wheezing. Some production with cough but difficult to expectorate No GI complaints No joint pain or deformities MEDICATIONS: Current Facility-Administered Medications Medication Dose Route Frequency - amoxicillin-clavulanic acid 875 mg tab(s) (AUGMENTIN) 875 mg ORAL q 12 H - lactobacillus rhamnosus 10 billion cell (CULTURELLE) capsule 1 capsule ORAL DAILY - propranolol 40 mg tab(s) (INDERAL) 40 mg ORAL TID - furosemide 20 mg injection (LASIX) 20 mg INTRAVENOUS TID - fluticasone-vilanterol 200-25 mcg/dose 1 Inhalation (BREO ELLIPTA) 1 Inhalation INHALATION DAILY - guaiFENesin 600 mg ER tab(s) (MUCINEX) 600 mg ORAL q 12 H - predniSONE 40 mg tab(s) (DELTASONE) 40 mg ORAL DAILY - pantoprazole DR 40 mg tab(s) (PROTONIX) 40 mg ORAL DAILY (6 AM) - potassium chloride ER 20 mEq tab(s) (K-DUR, KLOR-CON) 20 mEq ORAL BID - cholecalciferol 3,000 Units tab(s) (VITAMIN D3) 3,000 Units ORAL DAILY - oxyCODONE-acetaminophen 5-325 mg 1-2 tablet (PERCOCET) 1-2 tablet ORAL q 6 H PRN - gabapentin 900 mg cap(s) (NEURONTIN) 900 mg ORAL AT BEDTIME - hydrOXYzine HCl 25 mg tab(s) (ATARAX) 25 mg ORAL TID PRN - cetirizine 10 mg tab(s) (ZyrTEC) 10 mg ORAL DAILY - simvastatin 40 mg tab(s) (ZOCOR) 40 mg ORAL AT BEDTIME - tamsulosin 0.4 mg cap(s) (FLOMAX) 0.4 mg ORAL DAILY - Orlistat cap 120 mg 120 mg ORAL BID w MEALS - allopurinol 300 mg tab(s) (ZYLOPRIM) 300 mg ORAL DAILY - docusate sodium 300 mg cap(s) (COLACE) 300 mg ORAL DAILY - montelukast 10 mg tab(s) (SINGULAIR) 10 mg ORAL AT BEDTIME - aspirin, enteric coated 81 mg tab(s) 81 mg ORAL DAILY - temazepam 30 mg cap(s) (RESTORIL) 30 mg ORAL HS PRN - sertraline 25 mg tab(s) (ZOLOFT) 25 mg ORAL DAILY - NaCl 0.9% iv flush bag 20 mL INTRAVENOUS PRN - sodium chloride 0.9 % (flush) 3-5 mL (BD POSIFLUSH) 3-5 mL INTRAVENOUS q 12 H - sodium chloride 0.9 % (flush) 2-10 mL (BD POSIFLUSH) 2-10 mL INTRAVENOUS q 12 H - ondansetron orally disintegrating 4 mg tab(s) (ZOFRAN ODT) 4 mg ORAL q 6 H PRN Or - ondansetron (PF) 4 mg injection (ZOFRAN) 4 mg INTRAVENOUS q 6 H PRN - aluminum-magnesium hydroxide-simethicone 200-200-20 mg/5 mL 30 mL (MAALOX,MYLANTA,MAG-AL PLUS) 30 mL ORAL q 6 H PRN - magnesium hydroxide 400 mg/5 mL 30 mL (MOM) 30 mL ORAL DAILY PRN - bisacodyl 10 mg suppository (DULCOLAX) 10 mg RECTAL DAILY PRN - acetaminophen 650 mg tab(s) (TYLENOL) 650 mg ORAL q 6 H PRN - ipratropium-albuterol 3 mL nebulizer solution (DUONEB) 3 mL INHALATION q 4 H while awake - perflutren lipid microspheres 1.1 mg/mL 1.3 mL injection (DEFINITY) 1.3 mL INTRAVENOUS DIRECTED PRN CURRENT ALLERGIES: ALLERGIES Allergen Reactions - Amoxicillin-Pot Cla* Diarrhea, GI Upset - Anesthetics - Amide* Other: See Comments BECOMES AGGRESSIVE AND COMBATIVE. STOPS BREATHING DURING SURGERY. - Aspirin Vomiting, Other: See Comments Blood in stool , adverse reaction - Bee Venom Protein (* Swelling - Cortisone Other: See Comments CAUSES PAIN AND BURNING - Darvocet-N 100 [Pro* GI Upset, Vomiting - Estrogens Other: See Comments ALL HORMONES, HAVE TRIED MANY. GIVES BREAKTHROUGH BLEEDING - Influenza Virus Vac* Unknown - Iodinated Contrast * Hives, Vomiting (more content not included)... Normal [facility] Comp Metabolic Panelon 04-04 Albumin [Mass/Vol] 4.6 g/dL Normal 3.9-4.9 [facility] Comment on above: Performed By: #### C MP, MG1, CBC, LIPA ####[facility] Hgypaznjkz3831 [address] ALP [Catalytic activity/Vol] 113 U/L Normal 34-123 [facility] Comment on above: Performed By: #### C MP, MG1, CBC, LIPA ####[facility] Pjrhexergk4358 [address]5[address] ALT [Catalytic activity/Vol] 13 U/L Normal 7-38 [facility] Comment on above: Performed By: #### C MP, MG1, CBC, LIPA ####[facility] Upvmdcaukh2607 [address]5[address] Anion gap [Moles/Vol] 17 mmol/L Normal 9-18 [facility] Comment on above: Performed By: #### C MP, MG1, CBC, LIPA ####[facility] Hlzhgmxuid1585 [place] [address] AST [Catalytic activity/Vol] 18 U/L Normal 13-35 [facility] Comment on above: Performed By: #### C MP, MG1, CBC, LIPA ####[facility] Lcytrtbmvc9170 [place] [address] Bilirubin [Mass/Vol] 0.3 mg/dL Normal 0.2-1.3 [facility] Comment on above: Performed By: #### C MP, MG1, CBC, LIPA ####[facility] [address] [place] [address] Calcium [Mass/Vol] 10.2 mg/dL Normal 8.5-10.2 [facility] Comment on above: Performed By: #### C MP, MG1, CBC, LIPA ####[facility] By[address] [place] [address] Chloride [Moles/Vol] 95 mmol/L Low 97-105 [facility] Comment on above: Performed By: #### C MP, MG1, CBC, LIPA ####[facility] [address] [place] [address] CO2 [Moles/Vol] 23 mmol/L Normal 22-30 [facility] Comment on above: Performed By: #### C MP, MG1, CBC, LIPA ####[facility] Jabnyhsfiw2701 [place] [address] Creatinine [Mass/Vol] 0.92 mg/dL Normal 0.58-0.96 [facility] Comment on above: Performed By: #### C MP, MG1, CBC, LIPA ####[facility] Plemtcgxhn5240 [place] [address] eGFR- Amer. >60 Normal [facility] Comment on above: Performed By: #### C MP, MG1, CBC, LIPA ####[facility] Zaqmvicaks1418 [place] [address] eGFR-All Other Races >60 Normal [facility] Comment on above: Result Comment: eGFR (Estimated GFR) Units of measure: mL/min/1.73 meters squared eGFR is derived from the reexpressed MDRD Study equation using the following parameters: serum creatinine, age, gender and race. The creatinine assay has been calibrated to be traceable to IDMS. An eGFR <60 mL/min/1.73m2 for >3 months is consistent with chronic kidney disease. Refer to KDOQI guidelines for clinical interpretation. In patients with unstable renal function, e.g. those with acute kidney injury, the eGFR may not accurately reflect actual GFR. Note: On 04/16/2021, the eGFR calculation will be updated to the NKF-ASN Task Force recommended 2020 CKD-EPI creatinine equation which does not include a race variable. For more information or to access a 2020 CKD-EPI calculator, visit the National Kidney Foundation website at kidney.org/professionals/kdoqi/gfr_calculator. Performed By: #### C MP, MG1, CBC, LIPA ####[facility] Pinkxwpxti1690 [place] [phone] Glucose [Mass/Vol] 196 mg/dL High 74-99 [facility] Comment on above: Result Comment: The Citizen [place] Diabetes Association (ADA) provides guidance for cutoff values for fasting glucose and random glucose. The ADA defines fasting as no caloric intake for at least 8 hours. Fasting plasma glucose results between 100 to 125 mg/dL indicate increased risk for diabetes (prediabetes). Fasting plasma glucose results greater than or equal to 126 mg/dL meet the criteria for diagnosis of diabetes. In the absence of unequivocal hyperglycemia, results should be confirmed by repeat testing. In a patient with classic symptoms of hyperglycemia or hyperglycemic crisis, random plasma glucose results greater than or equal to 200 mg/dL meet the criteria for diagnosis of diabetes. Reference: Standards of Medical Care in Diabetes 2016, [place] Diabetes Association. Diabetes Care. 2016.39(Suppl 1). Performed By: #### C MP, MG1, CBC, LIPA ####[facility] Skfpsurpqx9814 [phone] Potassium [Moles/Vol] 5.0 mmol/L Normal 3.7-5.1 [facility] Comment on above: Performed By: #### C MP, MG1, CBC, LIPA ####[facility] Qfzmxwsrby9427 [place] [phone] Protein [Mass/Vol] 8.3 g/dL High 6.3-8.0 [facility] Comment on above: Performed By: #### C MP, MG1, CBC, LIPA ####[facility] Uwqchivxvh0831 [place] [phone] Sodium [Moles/Vol] 135 mmol/L Low 136-144 [facility] Comment on above: Performed By: #### C MP, MG1, CBC, LIPA ####[facility] Tqzgxafcaq3237 [place] [phone] Urea nitrogen [Mass/Vol] 31 mg/dL High 7-21 [facility] Comment on above: Performed By: #### C MP, MG1, CBC, LIPA ####[facility] [address] [place], [place] [phone] CARY Antibody Panelon 022 Centromere <0.2 Normal <1.0 [facility] Comment on above: Result Comment: NEGA TIVE Negative: <1.0 AI Positive: >0.9 AI Test performed using the Multiplex Flow Immunoassay technology. Performed By: #### A PADMAJA SHAHID, CCP, ANAIFS ####[place] [phone] Chromatin Antibody <0.2 Normal <1.0 [facility] Comment on above: Result Comment: NEGA TIVE Negative: <1.0 AI Positive: >0.9 AI Test performed using the Multiplex Flow Immunoassay technology. Performed By: #### A PADMAJA SHAHID, CCP, ANAIFS ####[address] [place] [phone] KAREN 1 Antibody <0.2 Normal <1.0 [facility] Comment on above: Result Comment: NEGA TIVE Negative: <1.0 AI Positive: >0.9 AI Test performed using the Multiplex Flow Immunoassay technology. Performed By: #### A PADMAJA SHAHID, CCP, ANAIFS ####[place] [phone] Ribosomal INFORMATION TECHNOLOGY ADMINISTRATOR <0.2 Normal <1.0 [facility] Comment on above: Result Comment: NEGA TIVE Negative: <1.0 AI Positive: >0.9 AI Test performed using the Multiplex Flow Immunoassay technology. Performed By: #### A PADMAJA SHAHID, CCP, ANAIFS ####[phone] INFORMATION TECHNOLOGY ADMINISTRATOR Antibody <0.2 Normal <1.0 [facility] Comment on above: Result Comment: NEGA TIVE Negative: <1.0 AI Positive: >0.9 AI Test performed using the Multiplex Flow Immunoassay technology. Performed By: #### A KLEBER ENMELISSA, CCP, ANAIFS ####[place] [phone] Scleroderma IgG Ab <0.2 Normal <1.0 [facility] Comment on above: Result Comment: NEGA TIVE Negative: <1.0 AI Positive: >0.9 AI Test performed using the Multiplex Flow Immunoassay technology. Performed By: #### A KLEBER ENMELISSA, CCP, ANAIFS ####[place] [phone] Sm Antibody <0.2 Normal <1.0 [facility] Comment on above: Result Comment: NEGA TIVE Negative: <1.0 AI Positive: >0.9 AI Test performed using the Multiplex Flow Immunoassay technology. Performed By: #### A KLEBER ENMELISSA, CCP, ANAIFS ####[place] [phone] SSA Antibody <0.2 Normal <1.0 [facility] Comment on above: Result Comment: NEGA TIVE Negative: <1.0 AI Positive: >0.9 AI Test performed using the Multiplex Flow Immunoassay technology. Performed By: #### A NABGILBERTO ENMELISSA, CCP, ANAIFS ####[phone] SSB Antibody <0.2 Normal <1.0 [facility] Comment on above: Result Comment: NEGA TIVE Negative: <1.0 AI Positive: >0.9 AI Test performed using the Multiplex Flow Immunoassay technology. Performed By: #### A KLEBER, ENAID, CCP, ANAIFS ####[facility] [place], [place] [phone] Lipaseon 04-04-2021 Lipase [Catalytic activity/Vol] 25 U/L Normal 16-61 [facility] Comment on above: Performed By: #### C MP, MG1, CBC, LIPA ####[facility] Tgwcuitlvu5256 [phone] Magnesiumon 04-04-2021 Magnesium [Mass/Vol] 2.1 mg/dL Normal 1.7-2.3 [facility] Comment on above: Performed By: #### C MP, MG1, CBC, LIPA ####[facility] Tthyikzcbp3158 [phone] NM LUNG PERFUSION ONLYon NM LUNG PERFUSION ONLY * * *Final Report * * * DATE OF EXAM: Apr 04 2021 5:40PM MARY 0049 - NM LUNG PERFUSION ONLY / PROCEDURE REASON: PE suspected, intermediate prob, positive D-dimer * * * * Physician Interpretation * * * * LUNG SCAN-Perfusion SPECT CLINICAL HISTORY: Assess for acute pulmonary embolism. Dyspnea. TECHNIQUE: 5 mCi Tc 99m MAA IV. Planar images and SPECT of the chest are acquired. Comparison chest CT: 04/02/2021. RESULTS: Perfusion Images: Heterogeneous tracer distribution in the bilateral lung. Nonsegmental perfusion defects: Multiple in both lungs. Segmental perfusion defects: none. IMPRESSION: THE STUDY IS MOST CONSISTENT WITH A LOW PROBABILITY OF PULMONARY EMBOLISM. Manufacturing Engineer Supervisor: PSCTricia Transcribe Date/Time: Apr 04 2021 7:59P Dictated by : AILEEN TALAMANTES MD This examination was interpreted and the report reviewed and electronically signed by: AILEEN TALAMANTES MD on Apr 04 2021 8:02PM EST [id number] Normal [facility] NURSING PROGon 04-04-2021 NURSING PROG HNO ID: [id number] Author: Liv Berg RN Service: Nursing Author Type: Registered Nurse Type: Nursing Progress Note Filed: 04/04/2021 6:37 PM Note Text: Nursing Progress Note Patient Name: Rosalba Abebe Patient Location: [id number] Daily Note: Messaged Dr. lOivas to determine if Lasix should be held with BUN results. Also messaged MAR YGRACE. This note was completed by: Liv Berg [facility] NURSING PROG HNO ID: [id number] Author: Vadim Magana RN Service: Nursing Author Type: Registered Nurse Type: Nursing Progress Note Filed: 04/04/2021 3:42 PM Note Text: PATIENT EDUCATION HEART FAILURE PATIENT NAME: Rosalba Abebe PATIENT LOCATION: [id number] SURVIVAL SKILLS: Low Sodium Diet Weight Monitoring and Dry Weight Importance of Follow Up after Discharge Fluid Restriction, if applicable Heart Failure Medications Symptom Management related to heart failure Activity / Physical Exercise Recommendations Smoking cessation counseling if applicable When Patient Should Call Provider READINESS TO LEARN COGNITIVE ABILITY: Alert and oriented MOTIVATION TO LEARN: Eager FAMILY SUPPORT: High - Very involved in pt care INSTRUCTION PROVIDED TO: Patient and Spouse PATIENT LEARNS BEST BY: Individual Instruction Written Instruction - Hand-outs Verbal Instruction FACTORS AFFECTING LEARNING: None PHYSICAL LIMITATIONS AFFECTING LEARNING: None LEARNING RESPONSE DIAGNOSIS: Heart Failure PATIENT/FAMILY RESPONSE: Pt Is on Lasix every other day at home. States it cause urinary urgency and frequency for 8 hours, therefore may not take if she needs to leave the house. States she's been cooking a lot at home and avoiding high sodium foods. Pt and aware that take out, restaurant food and frozen food are sources of high NA+. Pt states she drinks 3-4 liters of water/daily for her dry mouth. Pt now knows 2 liters is the HF recommendation. Will review HF binder on next visit. Verbalizes understanding of: The signs and symptoms of a worsening condition that warrant a call to the physician. Fluid restrictions Diet / weight monitoring METHOD OF INSTRUCTION: Individual instruction Written instruction - handouts Verbal instruction FOLLOW-UP PLAN: Recommend - Recommend continued instruction and follow up as directed INSTRUCTIONAL AIDS USED: Heart Failure Binder SUPPLEMENTAL MATERIAL PROVIDED TO PATIENT: Heart Failure Binder/Booklet addressing low sodium diet, activity, medications, symptoms related to heart failure (call the physicians office if you gain or lose more than or equal to 4 pounds) , weight monitoring, and smoking cessation counseling if applicable. REFERRAL (RECOMMENDATION): Pt would be excellent candidate for CHF CLINIC Electronically Signed By: Vadim Magana [facility] PANCA Reflexon 04-04-2021 PANCA Reflex Billed for services performed [facility] Comment on above: Performed By: #### P ANBLL, ANCA, CANBLL ####[facility] [place], [place] [phone] Urinalysison 04-04-2021 Bilirubin, Urine Negative Normal [facility] Comment on above: Performed By: #### U A, UAMIC ####[facility] [address] [place] [address] Clarity (U) Clear Normal Clear [facility] Comment on above: Performed By: #### U A, UAMIC ####[facility] [address] [place] [address] Color (U) Yellow Normal Yellow [facility] Comment on above: Performed By: #### U A, UAMIC ####[facility] Bwxlvymmfy3323 [place] [address] Glucose Ql (U) Negative Normal Negative [facility] Comment on above: Performed By: #### U A, UAMIC ####[facility] Micakcrdzf0726 [place] [address] Hemoglobin/Blood,Ur Negative Normal Negative [facility] Comment on above: Performed By: #### U A, UAMIC ####[facility] [address] [place], [place] [phone] Ketones Ql (U) Negative Normal Negative [facility] Comment on above: Performed By: #### U A, UAMIC ####[facility] [address]1763 [place] [phone] Leukest 1+ Critically abnormal Negative [facility] Comment on above: Performed By: #### U A, UAMIC ####[facility] Dsnhgzjkgs5185 [address]5160 Nitrite Ql (U) Negative Normal Negative [facility] Comment on above: Performed By: #### U A UAMIC ####[facility] [address] [place], [place] [phone] pH (U) 6.0 [pH] Normal 5.0-8.0 [facility] Comment on above: Performed By: #### U A UAMIC ####[facility] [address] [place] [address] Protein, Urine Negative Normal Negative [facility] Comment on above: Performed By: #### U A UAMIC ####[place] [phone] Specific [place], Ur 1.020 Normal 1.005-1 .03 0 [facility] Comment on above: Performed By: #### U A UAMIC ####[place] [phone] Urobilinogen Qn (U) 0.2 {Leonardo'U}/dL Normal 0.2-1.0 [facility] Comment on above: Performed By: #### U A UAMIC ####[facility] [address] [place] [address] Urine Cultureon 04-04-2021 Bacteria identified Cx Nom (U) Sp. Request/Comment: - Specimen received in preservative Culture Result - No growth (<1,000 CFU/ml) Normal [facility] Comment on above: Performed By: #### U RCUL ####[facility] [address] [place] [address] [address] [place], [place] [phone] Urine Microscopic (FOR LAB U SE ONLY)on 04-04-2021 Cast SEE COMMENT Normal 0 [facility] Comment on above: Result Comment: 0 Performed By: #### U A, UAMIC ####[facility] [address] [place], [place] [phone] RBC 0-3 Normal 0-3 [facility] Comment on above: Performed By: #### U A UAMIC ####[facility] [address] [place], [place] [phone] WBC 5-10 Critically abnormal 0-5 [facility] Comment on above: Performed By: #### U A, UAMIC ####[facility] Eshvbqqkvu7507 [address]5160 Alpha 1 antitrypsinon 2021 Alpha 1 antitrypsin 193 mg/dL Normal 90-200 [facility] Comment on above: Performed By: #### A AT, IGE ####[facility] [address] [place], [place] [phone] Basic Metabolic Panlon 04-03 Anion gap [Moles/Vol] 16 mmol/L Normal 9-18 [facility] Comment on above: Performed By: #### M G1, CBC, BMP ####[facility] [address] [place] [address] Calcium [Mass/Vol] 10.1 mg/dL Normal 8.5-10.2 [facility] Comment on above: Performed By: #### M G1, CBC, BMP ####[facility] Qjqwdbyqzh9841 [place] [address] Chloride [Moles/Vol] 98 mmol/L Normal 97-105 [facility] Comment on above: Performed By: #### M G1, CBC, BMP ####[facility] Wletyp[address]oa9125 [place] [address] CO2 [Moles/Vol] 22 mmol/L Normal 22-30 [facility] Comment on above: Performed By: #### M G1, CBC, BMP ####[facility] [address]zfe4246 [place] [address] Creatinine [Mass/Vol] 0.68 mg/dL Normal 0.58-0.96 [facility] Comment on above: Performed By: #### M G1, CBC, BMP ####[facility] Rojg[address]aghx4033 [place] [address] eGFR- Amer. >60 Normal [facility] Comment on above: Performed By: #### M G1, CBC, BMP ####[facility] Llxsxzqnkc7964 [place] [address] eGFR-All Other Races >60 Normal [facility] Comment on above: Result Comment: eGFR (Estimated GFR) Units of measure: mL/min/1.73 meters squared eGFR is derived from the reexpressed MDRD Study equation using the following parameters: serum creatinine, age, gender and race. The creatinine assay has been calibrated to be traceable to IDMS. An eGFR <60 mL/min/1.73m2 for >3 months is consistent with chronic kidney disease. Refer to KDOQI guidelines for clinical interpretation. In patients with unstable renal function, e.g. those with acute kidney injury, the eGFR may not accurately reflect actual GFR. Note: On 04/16/2021, the eGFR calculation will be updated to the NKF-ASN Task Force recommended 2020 CKD-EPI creatinine equation which does not include a race variable. For more information or to access a 2020 CKD-EPI calculator, visit the National Kidney Foundation website at kidney.org/professionals/kdoqi/gfr_calculator. Performed By: #### M G1, CBC, BMP ####[facility] Qvolyjygez1564 [phone] Glucose [Mass/Vol] 168 mg/dL High 74-99 [facility] Comment on above: Result Comment: The Citizen Of The [place] Diabetes Association (ADA) provides guidance for cutoff values for fasting glucose and random glucose. The ADA defines fasting as no caloric intake for at least 8 hours. Fasting plasma glucose results between 100 to 125 mg/dL indicate increased risk for diabetes (prediabetes). Fasting plasma glucose results greater than or equal to 126 mg/dL meet the criteria for diagnosis of diabetes. In the absence of unequivocal hyperglycemia, results should be confirmed by repeat testing. In a patient with classic symptoms of hyperglycemia or hyperglycemic crisis, random plasma glucose results greater than or equal to 200 mg/dL meet the criteria for diagnosis of diabetes. Reference: Standards of Medical Care in Diabetes 2016, [place] Diabetes Association. Diabetes Care. 2016.39(Suppl 1). Performed By: #### M G1, CBC, BMP ####[facility] [address]ks[address]htj0151 [place] [phone] Potassium [Moles/Vol] 4.8 mmol/L Normal 3.7-5.1 [facility] Comment on above: Performed By: #### M G1, CBC, BMP ####[facility] Jyt[address]ubnppy4504 [place] [phone] Sodium [Moles/Vol] 136 mmol/L Normal 136-144 [facility] Comment on above: Performed By: #### M G1, CBC, BMP ####[facility] Ppicyfobkm7747 [place] [phone] Urea nitrogen [Mass/Vol] 20 mg/dL Normal 7-21 [facility] Comment on above: Performed By: #### M G1, CBC, BMP ####[facility] Shemzftsdj1344 [place] [phone] CBCon 04-03-2021 Absolute nRBC <0.01 Normal <0.01 [facility] Comment on above: Performed By: #### M G1, CBC, BMP ####[facility] [address] [place], [place] [phone] Erythrocyte distribution width (RBC) [Ratio] 13.5 % Normal 11.5-15.0 [facility] Comment on above: Performed By: #### M G1, CBC, BMP ####[facility] [address] [place] [address] Hematocrit (Bld) [Volume fraction] 41.4 % Normal 36.0-46.0 [facility] Comment on above: Performed By: #### M G1, CBC, BMP ####[facility] [address] [place], [place] [phone] Hemoglobin (Bld) [Mass/Vol] 13.1 g/dL Normal 11.5-15.5 [facility] Comment on above: Performed By: #### M G1, CBC, BMP ####[facility] Ecikvatuds1891 [address]5160 MCH 31.8 pG Normal 26.0-34.0 [facility] Comment on above: Performed By: #### M G1, CBC, BMP ####[facility] Fbvouvwasj9295 [address]5160 MCHC (RBC) [Mass/Vol] 31.6 g/dL Normal 30.5-36.0 [facility] Comment on above: Performed By: #### M G1, CBC, BMP ####[facility] Lgwvsqzlzy8288 [address] MCV (RBC) [Entitic vol] 100.5 fL High 80.0-100.0 [facility] Comment on above: Performed By: #### M G1, CBC, BMP ####[facility] Whttbncnlv1402 [phone] Platelet mean volume (Bld) [Entitic vol] 9.3 fL Normal 9.0-12.7 [facility] Comment on above: Performed By: #### M G1, CBC, BMP ####[facility] Ixotekunlx9275 [phone] Platelets (Bld) [#/Vol] 413 10*3/uL High 150-400 [facility] Comment on above: Performed By: #### M G1, CBC, BMP ####[facility] Qanfpmusqi6031 [phone] RBC (Bld) [#/Vol] 4.12 10*6/uL Normal 3.90-5.20 [facility] Comment on above: Performed By: #### M G1, CBC, BMP ####[facility] Jrnohciezi4988 [phone] WBC (Bld) [#/Vol] 18.47 10*3/uL High 3.70-11.00 [facility] Comment on above: Performed By: #### M G1, CBC, BMP ####[facility] Zqzrzznfab5682 [phone] CONSULT PROGon 04-03-2021 CONSULT PROG HNO ID: [id number] Author: Dolly Alaniz MD Service: Pulmonary Disease Author Type: Physician Type: Consult Progress Note Filed: 04/03/2021 2:02 PM Note Text: [facility] IN-PATIENT CONSULT PROGRESS NOTE SERVICE DATE: 04/03/2021 INTERVAL HPI:Rosalba Abebe is a 70 year old female status since previous days visit has been improving. Remains at 2 lpm. No fevers, chills, night sweats, chest pain, SOB, abd pain or leg swelling. No events over night. Ct chest April 02, 2021 Areas of bronchiectasis and fibrotic change Mosaic attenuation suggesting small airways/small vessels disease Unchanged borderline mediastinal adenopathy, possibly reactive dvt study negative ASSESSMENT: Acute hypoxemic respiratory failure on 2 lpm nc Acute on chronic chf exacerbation Copd/emphysema with acute exacerbation Lung fibrosis/scarring Bronchiectasis Chronic cough Morbid obesity Stable 40 mm RML nodule since 2018, likely a benign lymph node Ex smoker H/o mild in 2019 ? PLAN: Continue oxygen supplementation to keep Sat O2 between 88-92%. Wean as tolerated. can switch to po prednisone in am Start Breo Start mucinex Bronchopulmonary hygiene Continue with bronchodilators with duonebs Continue with diuresis Started on Augmentin Echo pending dvt ppx Social History Tobacco Use - Smoking status: Former Smoker Quit date: 02/27/1987 Years since quittin.1 - Smokeless tobacco: Never Used - Tobacco comment: Former smoker; Tobacco reviewed with patient 08/30/2015 Vaping Use - Vaping Use: Never used Substance Use Topics - Alcohol use: No Comment: Non-drinker - Drug use: No Comment: No reported history Plan discussed in detail with patient, RN and primary attending. Patient verbalizes understanding and is in agreement with the current management plan. Total time spent in patient care includes but is not limited to patient/ family discussions, collaborative discussions with other healthcare providers, review of medical records, review of laboratory tests, radiology images/ results, microbiology and pathology data. Dolly Alaniz MD Staff, Respiratory [facility] Pager #[phone] MEDICATIONS: Current Facility-Administered Medications Medication Dose Route Frequency - amoxicillin-clavulanic acid 875 mg tab(s) (AUGMENTIN) 875 mg ORAL q 12 H - lactobacillus rhamnosus 10 billion cell (CULTURELLE) capsule 1 capsule ORAL DAILY - propranolol 40 mg tab(s) (INDERAL) 40 mg ORAL TID - fluticasone-vilanterol 200-25 mcg/dose 1 Inhalation (BREO ELLIPTA) 1 Inhalation INHALATION DAILY - guaiFENesin 600 mg ER tab(s) (MUCINEX) 600 mg ORAL q 12 H - potassium chloride ER 20 mEq tab(s) (K-DUR, KLOR-CON) 20 mEq ORAL BID - cholecalciferol 3,000 Units tab(s) (VITAMIN D3) 3,000 Units ORAL DAILY - oxyCODONE-acetaminophen 5-325 mg 1-2 tablet (PERCOCET) 1-2 tablet ORAL q 6 H PRN - gabapentin 900 mg cap(s) (NEURONTIN) 900 mg ORAL AT BEDTIME - hydrOXYzine HCl 25 mg tab(s) (ATARAX) 25 mg ORAL TID PRN - cetirizine 10 mg tab(s) (ZyrTEC) 10 mg ORAL DAILY - simvastatin 40 mg tab(s) (ZOCOR) 40 mg ORAL AT BEDTIME - tamsulosin 0.4 mg cap(s) (FLOMAX) 0.4 mg ORAL DAILY - Orlistat cap 120 mg 120 mg ORAL BID w MEALS - allopurinol 300 mg tab(s) (ZYLOPRIM) 300 mg ORAL DAILY - docusate sodium 300 mg cap(s) (COLACE) 300 mg ORAL DAILY - montelukast 10 mg tab(s) (SINGULAIR) 10 mg ORAL AT BEDTIME - aspirin, enteric coated 81 mg tab(s) 81 mg ORAL DAILY - pantoprazole DR 20 mg tab(s) (PROTONIX) 20 mg ORAL DAILY (6 AM) - temazepam 30 mg cap(s) (RESTORIL) 30 mg ORAL HS PRN - sertraline 25 mg tab(s) (ZOLOFT) 25 mg ORAL DAILY - NaCl 0.9% iv flush bag 20 mL INTRAVENOUS PRN - sodium chloride 0.9 % (flush) 3-5 mL (BD POSIFLUSH) 3-5 mL INTRAVENOUS q 12 H - sodium chloride 0.9 % (flush) 2-10 mL (BD POSIFLUSH) 2-10 mL INTRAVENOUS q 12 H - ondansetron orally disintegrating 4 mg tab(s) (ZOFRAN ODT) 4 mg ORAL q 6 H PRN Or - ondansetron (PF) 4 mg injection (ZOFRAN) 4 mg INTRAVENOUS q 6 H PRN - aluminum-magnesium hydroxide-simethicone 200-200-20 mg/5 mL 30 mL (MAALOX,MYLANTA,MAG-AL PLUS) 30 mL ORAL q 6 H PRN - magnesium hydroxide 400 mg/5 mL 30 mL (MOM) 30 mL ORAL DAILY PRN - bisacodyl 10 mg suppository (DULCOLAX) 10 mg RECTAL DAILY PRN - acetaminophen 650 mg tab(s) (TYLENOL) 650 mg ORAL q 6 H PRN - ipratropium-albuterol 3 mL nebulizer solution (DUONEB) 3 mL INHALATION q 4 H while awake - methylPREDNISolone sod succinate(PF) 60 mg injection (SOLU-Medrol) 60 mg INTRAVENOUS q 8 H - perflutren lipid microspheres 1.1 mg/mL 1.3 mL injection (DEFINITY) 1.3 mL INTRAVENOUS DIRECTED PRN CURRENT ALLERGIES: ALLERGIES Allergen Reactions - Amoxicillin-Pot Cla* Diarrhea, GI Upset - Anesthetics - Amide* Other: See Comments BECOMES AGGRESSIVE AND COMBATIVE. STOPS BREATHING DURING SURGERY. - Aspirin Vomiting, Other: See Comments Blo (more content not included)... [facility] CONSULT PROG HNO ID: [id number] Author: Keesha Alcantar MD Service: Cardiovascular Testing Author Type: Physician Type: Consult Progress Note Filed: 04/03/2021 1:18 PM Note Text: PROGRESS NOTE CARDIOLOGY SERVICE SERVICE DATE: 04/03/2021 SERVICE TIME: 1:09 PM INTERIM HISTORY: Patient has improvement in her SOB with diuresis and had no chest pain, palpitations or dizziness overnight. MEDICATIONS: Current Facility-Administered Medications Medication Dose Route Frequency - cholecalciferol 3,000 Units tab(s) (VITAMIN D3) 3,000 Units ORAL DAILY - oxyCODONE-acetaminophen 5-325 mg 1-2 tablet (PERCOCET) 1-2 tablet ORAL q 6 H PRN - gabapentin 900 mg cap(s) (NEURONTIN) 900 mg ORAL AT BEDTIME - hydrOXYzine HCl 25 mg tab(s) (ATARAX) 25 mg ORAL TID PRN - cetirizine 10 mg tab(s) (ZyrTEC) 10 mg ORAL DAILY - simvastatin 40 mg tab(s) (ZOCOR) 40 mg ORAL AT BEDTIME - tamsulosin 0.4 mg cap(s) (FLOMAX) 0.4 mg ORAL DAILY - propranolol 40 mg tab(s) (INDERAL) 40 mg ORAL BID - Orlistat cap 120 mg 120 mg ORAL BID w MEALS - allopurinol 300 mg tab(s) (ZYLOPRIM) 300 mg ORAL DAILY - docusate sodium 300 mg cap(s) (COLACE) 300 mg ORAL DAILY - montelukast 10 mg tab(s) (SINGULAIR) 10 mg ORAL AT BEDTIME - aspirin, enteric coated 81 mg tab(s) 81 mg ORAL DAILY - pantoprazole DR 20 mg tab(s) (PROTONIX) 20 mg ORAL DAILY (6 AM) - temazepam 30 mg cap(s) (RESTORIL) 30 mg ORAL HS PRN - sertraline 25 mg tab(s) (ZOLOFT) 25 mg ORAL DAILY - NaCl 0.9% iv flush bag 20 mL INTRAVENOUS PRN - sodium chloride 0.9 % (flush) 3-5 mL (BD POSIFLUSH) 3-5 mL INTRAVENOUS q 12 H - sodium chloride 0.9 % (flush) 2-10 mL (BD POSIFLUSH) 2-10 mL INTRAVENOUS q 12 H - ondansetron orally disintegrating 4 mg tab(s) (ZOFRAN ODT) 4 mg ORAL q 6 H PRN Or - ondansetron (PF) 4 mg injection (ZOFRAN) 4 mg INTRAVENOUS q 6 H PRN - aluminum-magnesium hydroxide-simethicone 200-200-20 mg/5 mL 30 mL (MAALOX,MYLANTA,MAG-AL PLUS) 30 mL ORAL q 6 H PRN - magnesium hydroxide 400 mg/5 mL 30 mL (MOM) 30 mL ORAL DAILY PRN - bisacodyl 10 mg suppository (DULCOLAX) 10 mg RECTAL DAILY PRN - acetaminophen 650 mg tab(s) (TYLENOL) 650 mg ORAL q 6 H PRN - ipratropium-albuterol 3 mL nebulizer solution (DUONEB) 3 mL INHALATION q 4 H while awake - methylPREDNISolone sod succinate(PF) 60 mg injection (SOLU-Medrol) 60 mg INTRAVENOUS q 8 H - perflutren lipid microspheres 1.1 mg/mL 1.3 mL injection (DEFINITY) 1.3 mL INTRAVENOUS DIRECTED PRN - furosemide 20 mg injection (LASIX) 20 mg INTRAVENOUS q 8 H - potassium chloride ER 20 mEq tab(s) (K-DUR, KLOR-CON) 20 mEq ORAL BID - amoxicillin-clavulanic acid 875 mg tab(s) (AUGMENTIN) 875 mg ORAL q 12 H - lactobacillus rhamnosus 10 billion cell (CULTURELLE) capsule 1 capsule ORAL DAILY Objective PHYSICAL EXAM: Patient Vitals for the past 24 hrs: BP Temp Temp src Pulse Resp SpO2 Weight 04/03/21 1220 127/66 36.9 ?C (98.4 ?F) Oral 86 18 95 % ? 04/03/21 1150 ? ? ? 84 20 95 % ? 04/03/21 1137 ? ? ? 88 20 95 % ? 04/03/21 0859 116/70 36.8 ?C (98.2 ?F) Oral 86 18 95 % ? 04/03/21 0750 ? ? ? 89 20 ? ? 04/03/21 0742 ? ? ? 84 20 96 % ? 04/03/21 0620 ? 110.5 kg (243 lb 8 oz) 04/03/21 0459 137/69 36.8 ?C (98.2 ?F) Oral 81 18 96 % ? 04/02/212030 117/54 37.1 ?C (98.8 ?F) Oral 96 16 93 % ? 04/02/21 1928 ? ? ? 78 20 96 % ? 04/02/21 1610 ? ? ? 70 20 ? ? 04/02/21 1600 ? ? ? 72 20 96 % ? 04/02/21 1457 126/52 36.9 ?C (98.4 ?F) Oral 78 16 94 % ? 04/02/21 1353 ? 112 kg (247 lb) Weight change: 0.907 kg (2 lb) Body mass index is 43.13 kg/m?. Intake/Output Summary (Last 24 hours) at 04/03/2021 1309 Last data filed at 04/03/2021 0541 Gross per 24 hour Intake 2660 ml Output 2100 ml Net 560 ml General: Pt is able to communicate. Patient is not in acute respiratory distress. SKIN: No rash or lumps. Eyes. Pupils are round and accommodative to light. HEENT: Normocephalic, face symmetrical. Normal pinna. Throat is without congestion. NECK: Supple, no JVD, no carotid bruit, no thyromegaly. LUNGS: Crackles at lung bases to auscultation bilaterally. CARDIAC:Regular rhythm with basal and LSB systolic murmur. ABDOMEN: Soft, nontender, bowel sounds present. EXTREMITIES: No cyanosis, clubbing, with minimal pitting edema. PULSES: Peripheral pulses are palpable in Dorsalis pedis and Posterior tibial arteries bilaterally. NEURO: Non-focal. Awake, alert and oriented. Moves all extremities. MUSCULOSKELETAL: No fracture or dislocation of the bones or joints. Recent Labs 04/02/21 0933 04/02/21 0352 TROPT <0.010 -- WBC -- 9.94 RBC -- 3.68* HB -- 11.7 HCT -- 36.6 PLT -- 327 GLUC -- 109* BUN -- 17 CREAT -- 0.92 NA -- 139 K -- 4.4 CHLOR -- 101 CO2 -- 26 TPROT -- 6.5 ALB -- 3.7* CA -- 9.3 ALKPHOS -- 102 TBILI -- 0.4 AST -- 14 ALT -- 10 MG 1.9 -- Diagnostic tests reviewed I reviewed the imaging result from the radiology section. CT chest 04/03/21 showed areas of bronchie (more content not included)... Normal [facility] IgEon 04-03-2021 IgE 7.7 kU/L Normal <114 [facility] Comment on above: Performed By: #### A AT, IGE ####[facility] [address] [place], [place] [phone] Magnesiumon 04-03-2021 Magnesium [Mass/Vol] 2.1 mg/dL Normal 1.7-2.3 [facility] Comment on above: Performed By: #### M G1, CBC, BMP ####[facility] [address] [place] [phone] ALLIED HEALTHon 04-02-2021 ALLIED HEALTH HNO ID: [id number] Author: Germaine Guzmán RDMS Service: Radiology Author Type: Motor Power Connector Type: [facility] Filed: 04/02/2021 7:30 PM Note Text: Radiology Service Progress Note PATIENT NAME: Rosalba Abebe DATE OF SERVICE: April 02, 2021 TIME: 7:30 PM PATIENT IDENTITY VERIFICATION COMPLETED USING TWO (2) IDENTIFIERS: Name and Date of confirmed by patient verbally and Name and Date of confirmed by identification band. FALL SCREENING: Has the patient had 2 falls in the last year or 1 fall with injury or currently using an Ambulatory Assistive Device (Walker, Cane, Wheelchair, Crutches, etc.)? Inpatient: Screened on floor PATIENT GENDER DATA: Female. status: : No status: NO. PATIENT RELEVANT IMPLANT DATA REVIEWED: Not Applicable RADIOLOGY DEPARTMENT: Ultrasound PERIPHERAL IV DATA: Not applicable SIGNED BY: Germaine Guzmán RDMS April 02, 2021 7:30 PM [facility] HNO ID: [id number] Author: RT Fran(R) Service: Radiology Author Type: Technologist Type: Allied Health Filed: 04/02/2021 2:47 PM Note Text: Radiology Service Progress Note PATIENT NAME: Rosalba Abebe DATE OF SERVICE: April 02, 2021 TIME: 2:47 PM PATIENT IDENTITY VERIFICATION COMPLETED USING TWO (2) IDENTIFIERS: Name and Date of confirmed by patient verbally and Name and Date of confirmed by identification band. FALL SCREENING: Has the patient had 2 falls in the last year or 1 fall with injury or currently using an Ambulatory Assistive Device (Walker, Cane, Wheelchair, Crutches, etc.)? No PATIENT GENDER DATA: Female. status: : No status: NO. PATIENT RELEVANT IMPLANT DATA REVIEWED: Not Applicable RADIOLOGY DEPARTMENT: CT; Exam(s) Completed: Chest PERIPHERAL IV DATA: Not applicable SIGNED BY: RT Fran(R) April 02, 2021 2:47 PM [facility] CASE MANAGEMon 04-02-2021 CASE MANAGEM HNO ID: [id number] Author: Tessa Vázquez RN Service: ? Author Type: Registered Nurse Type: Care Mgt Progress Note Filed: 04/02/2021 3:33 PM Note Text: CARE MANAGEMENT PROGRESS NOTE SERVICE DATE: 04/02/2021 SERVICE TIME: 3:33 PM LOS: 1 day This patient has been screened for Care Management Transitional Planning Services. At this time, it does not appear this patient will require transition planning services. Should this change, and the patient requires transition planning services coordinated during this admission (ie placement, IV ATB?s), please call the residential case manager covering this case. SIGNATURE: Tessa Vázquez RN PATIENT NAME: Rosalba Abebe DATE: April 02, 2021 TIME: 3:32 PM PAGER/CONTACT #: [phone] Normal [facility] CBCon 04-02-2021 Absolute nRBC <0.01 Normal <0.01 [facility] Comment on above: Performed By: #### C BC, CMP ####[facility] [address] [place], [place] [phone] Erythrocyte distribution width (RBC) [Ratio] 13.6 % Normal 11.5-15.0 [facility] Comment on above: Performed By: #### C BC, CMP ####[place] [address] Hematocrit (Bld) [Volume fraction] 36.6 % Normal 36.0-46.0 [facility] Comment on above: Performed By: #### Angelica BELLO, CMP ####[place] [address] Hemoglobin (Bld) [Mass/Vol] 11.7 g/dL Normal 11.5-15.5 [facility] Comment on above: Performed By: #### C ACE, CMP ####[place] [address] MCH 31.8 pG Normal 26.0-34.0 [facility] Comment on above: Performed By: #### Angelica BELLO, CMP ####[place] [address] MCHC (RBC) [Mass/Vol] 32.0 g/dL Normal 30.5-36.0 [facility] Comment on above: Performed By: #### Angelica BELLO, CMP ####[place] [address] MCV (RBC) [Entitic vol] 99.5 fL Normal 80.0-100.0 [facility] Comment on above: Performed By: #### Angelica BELLO, CMP ####[place] [address] Platelet mean volume (Bld) [Entitic vol] 9.5 fL Normal 9.0-12.7 [facility] Comment on above: Performed By: #### C ACE, CMP ####[place] [address] Platelets (Bld) [#/Vol] 327 10*3/uL Normal 150-400 [facility] Comment on above: Performed By: #### C ACE, CMP ####[place] [address] RBC (Bld) [#/Vol] 3.68 10*6/uL Low 3.90-5.20 [facility] Comment on above: Performed By: #### Angelica BELLO, CMP ####[place] [address] WBC (Bld) [#/Vol] 9.94 10*3/uL Normal 3.70-11.00 [facility] Comment on above: Performed By: #### C BC, CMP ####[facility] [address] [place] [phone] CONSULTon 04-02-2021 CONSULT HNO ID: [id number] Author: Dolly Alaniz MD Service: Pulmonary Disease Author Type: Physician Type: Consults Filed: 04/02/2021 3:23 PM Note Text: [facility] INITIAL CONSULTATION NOTE Patient Name: Rosalba Abebe REASON FOR CONSULT: SOB REQUESTING PHYSICIAN: Gayla Olivas MD ASSESSMENT: Acute hypoxemic respiratory failure on 2 lpm nc Acute on chronic chf exacerbation Copd/emphysema with acute exacerbation Lung fibrosis/scarring Chronic cough Morbid obesity Stable 40 mm RML nodule since 2018, likely a benign lymph node Ex smoker H/o mild in 2019 PLAN: Continue oxygen supplementation to keep Sat O2 between 88-92%. Wean as tolerated. Continue systemic steroids, can switch to po prednisone in am Continue with bronchodilators with duonebs Proceed with ct chest-ordered without iv contrast Continue with diuresis Echo dvt study dvt ppx Thank you for the consultation. We will follow the patient along with you. Case discussed in detail with the patient, RN and primary attending. Patient verbalizes understanding and is in agreement with current management plan. Dolly Alaniz MD CHIEF COMPLAINT: sob HISTORY OF PRESENT ILLNESS: Rosalba Abebe is a 70 year old female, Ht 160 cm (5' 3) BMI 43.75 kg/m2, with a PMH significant for morbid obesity, lung fibrosis/scarring, emphysema, HTN, HLD, TIA, presents with SOB x 1-2 weeks. She is being treated for copd exacerbation and possible chf exacerbation. Patient is feeling better today. Less wheezing. The symptoms are moderate to severe, persistent, occur at rest and on exertion, relieved by no medications. NT PRO BNP [address] 510 PAST MEDICAL HISTORY Diagnosis Date - Anemia due to vitamin B12 deficiency due to dietary causes - Benign essential hypertension - Bone pain - Chest pain possibly cardiac, continue baby aspirin daily - Colon cancer screening 06/2016 cologuard test negative - Electrocardiogram abnormal order for nuclear stress test to be done at [facility] - Essential hypertension continue meds - Fatty liver 11/2015 - Fibromyalgia - GERD (gastroesophageal reflux disease) take pantoprazole first thing in the morning on an empty stomach, at least 1/2 hour before eating - Hyperlipidemia - Insomnia - Joint pain - Kidney stone change tamsulosin to as needed - Left flank pain - Migraine consider trial of imitrex after stress test is completed and if it is wnl - Mini stroke 2015 - Morbid obesity (HCC) - Multiple joint pain - Multiple lacunar infarcts (HCC) - Obesity, unspecified - Obstructive sleep apnea syndrome consider CPAP titration in near future if morning headaches continue - Osteoarthritis of multiple joints s/p B/L TKR - Osteopenia 2015 - Peripheral neuropathy 02/2016 - Rib fracture - Solitary pulmonary nodule present on computed tomography of lung repeat CT of chest in 07/2016 - Stomach cramps - Tremor - Vitamin D deficiency PAST SURGICAL HISTORY Procedure Laterality Date - ARTHRP KNE CONDYLEANDPLATU MEDIALANDLAT COMPARTMENTS Bilateral - CARPAL TUNNEL Left 02/09/2014 - SECTION HX [facility] 1985 - COLONOSCOPY Removal of polyps, [facility] 01/2013 - F LITHOTRIPSY [facility], 8mm kidney stone, rt side w/ stent placement 2013 - TOTAL ABDOMINAL HYSTERECTOMY - OPPONENSPLASTY SUPFCIS TDN TR TYP EA TDN Left FAMILY HISTORY Problem Relation Age of Onset - Prostate Cancer Father - other (Uterine cancer) Father - other (Myocardial infarction) Father - Prostate Cancer Paternal Grandmother - Prostate Cancer Paternal Uncle - Diabetes Other - other (Neck cancer) Brother Social History Tobacco Use - Smoking status: Former Smoker Quit date: 02/27/1987 Years since quittin.1 - Smokeless tobacco: Never Used - Tobacco comment: Former smoker; Tobacco reviewed with patient 08/30/2015 Vaping Use - Vaping Use: Never used Substance Use Topics - Alcohol use: No Comment: Non-drinker - Drug use: No Comment: No reported history ALLERGIES: ALLERGIES Allergen Reactions - Amoxicillin-Pot Cla* Diarrhea, GI Upset - Anesthetics - Amide* Other: See Comments BECOMES AGGRESSIVE AND COMBATIVE. STOPS BREATHING DURING SURGERY. - Aspirin Vomiting, Other: See Comments Blood in stool , adverse reaction - Bee Venom Protein (* Swelling - Cortisone Other: See Comments CAUSES PAIN AND BURNING - Darvocet-N 100 [Pro* GI Upset, Vomiting - Estrogens Other: See Comments ALL HORMONES, HAVE TRIED MANY. GIVES BREAKTHROUGH BLEEDING - Influenza Virus Vac* Unknown - Iodinated Contrast * Hives, Vomiting ALL DYES - Iodine And Iodide C* Swelling - Levaquin [Levofloxa* GI Upset E.E.S. - Nsaids (Non-Steroid* Unknown - Paxil [Paroxetine H* Other: See Comments Weight gain - Spider Venom Swelling - Venom-Wasp Swelling CURRENT OUTPATIENT MEDICATIONS: Ipratropium Sewell (ATROV (more content not included)... Normal [facility] CONSULT HNO ID: [id number] Author: Keesha Alcantar MD Service: Cardiovascular Testing Author Type: Physician Type: Consults Filed: 04/02/2021 12:42 PM Note Text: CONSULT: CARDIOLOGY SERVICE SERVICE DATE: 04/02/2021 SERVICE TIME: 12:13 PM Consult requested by: Gayla Olivas MD PCP: Ally Espinosa DO REASON FOR CONSULT: CHF exacerbation (HCC) [I50.9] with Hypoxia [R09.02] HISTORY OF PRESENT ILLNESS: Ms. Abebe is 70 year old female with h/o HTN, HLD, TIA, COPD / asthma presents with SOB for 1-2 weeks. Worsened over past few days. Now dyspnea with any exertion. Does have some mild orthopnea. Chest is a little bit tight when feeling SOB, but no tightness at rest currently. Denies palpitations, new leg swelling or calf pain. No recent surgery, travel, immobilization. Takes lasix for leg swelling chronically. Denies f/c, cough, myalgias, N/V/D, abd pain. Not really wheezing. ? Pt states that back in October she was told during a wrist surgery that she had borderline low pulse ox, and then again was told the same thing during a cataract procedure. Was asymptomatic at the time, so did not follow up or pursue any cardiac or pulmonary testing. Last cardiac testing was in 2019. ? Went to PCP office yesterday and reported that home pulse ox was ranging 80-95%, and was found to be 87% in the office on RA. Does not use home O2.?. PAST MEDICAL HISTORY Diagnosis Date - Anemia due to vitamin B12 deficiency due to dietary causes - Benign essential hypertension - Bone pain - Chest pain possibly cardiac, continue baby aspirin daily - Colon cancer screening 06/2016 cologuard test negative - Electrocardiogram abnormal order for nuclear stress test to be done at [facility] - Essential hypertension continue meds - Fatty liver 11/2015 - Fibromyalgia - GERD (gastroesophageal reflux disease) take pantoprazole first thing in the morning on an empty stomach, at least 1/2 hour before eating - Hyperlipidemia - Insomnia - Joint pain - Kidney stone change tamsulosin to as needed - Left flank pain - Migraine consider trial of imitrex after stress test is completed and if it is wnl - Mini stroke 2015 - Morbid obesity (HCC) - Multiple joint pain - Multiple lacunar infarcts (HCC) - Obesity, unspecified - Obstructive sleep apnea syndrome consider CPAP titration in near future if morning headaches continue - Osteoarthritis of multiple joints s/p B/L TKR - Osteopenia 2015 - Peripheral neuropathy 02/2016 - Rib fracture - Solitary pulmonary nodule present on computed tomography of lung repeat CT of chest in 07/2016 - Stomach cramps - Tremor - Vitamin D deficiency PAST SURGICAL HISTORY Procedure Laterality Date - ARTHRP KNE CONDYLEANDPLATU MEDIALANDLAT COMPARTMENTS Bilateral - CARPAL TUNNEL Left 02/09/2014 - SECTION HX [facility] 1985 - COLONOSCOPY Removal of polyps, [facility] 01/2013 - F LITHOTRIPSY [facility], 8mm kidney stone, rt side w/ stent placement 2013 - TOTAL ABDOMINAL HYSTERECTOMY - OPPONENSPLASTY SUPFCIS TDN TR TYP EA TDN Left FAMILY HISTORY Problem Relation Age of Onset - Prostate Cancer Father - other (Uterine cancer) Father - other (Myocardial infarction) Father - Prostate Cancer Paternal Grandmother - Prostate Cancer Paternal Uncle - Diabetes Other - other (Neck cancer) Brother Social History Tobacco Use - Smoking status: Former Smoker Quit date: 02/27/1987 Years since quittin.1 - Smokeless tobacco: Never Used - Tobacco comment: Former smoker; Tobacco reviewed with patient 08/30/2015 Vaping Use - Vaping Use: Never used Substance Use Topics - Alcohol use: No Comment: Non-drinker - Drug use: No Comment: No reported history Prior to Admission Medications Prescriptions Last Dose Informant Patient Reported? Taking? Acetaminophen 500 mg cap Yes No Sig: Take 2 tablets by mouth twice daily. Ibandronate 150 mg tablet No No Sig: TAKE 1 TABLET ONE TIME PER MONTH Ipratropium Sewell (ATROVENT) 21 mcg (0.03 %) nasal spray No No Sig: USE 1 SPRAY IN THE NOSE TWICE DAILY. MEDICATION, NON-DATABASE Yes No Sig: Calcium 1,000mg-magnesium 400mg-zinc 15 mg OTC PRODUCT Yes No Sig: L tryptophan OTC PRODUCT Yes No Sig: Super snooze night time sleep Orlistat (KUSUM) 60 mg capsule Yes No Sig: Take 120 mg by mouth twice daily with meals. POLYETHYLENE GLYCOL 3350 (MIRALAX ORAL) Yes No Sig: Take by mouth. albuterol HFA (VENTOLIN HFA) 90 mcg/actuation inhaler No No Sig: Inhale 2 Puffs as instructed every 4 hours as needed. allopurinol (ZYLOPRIM) 300 mg tablet No No Sig: TAKE 1 TABLET EVERY DAY aspirin, enteric coated (ASPIRIN, ENTERIC COATED) 81 mg EC tablet Yes No Sig: Take 81 mg by mouth once daily. cetirizine (ZYRTEC) 10 mg tablet Yes No Sig: Take 10 mg by mouth once daily. cholecalciferol (VITAMIN D) 1,000 unit tab tablet Yes No Sig: Take 3,000 Units by mouth once daily. docusate sodiu (more content not included)... Normal [facility] CT CHEST WO IVCONon 04-02-19 CT CHEST WO IVCON * * *Final Report* * * DATE OF EXAM: Apr 02 2021 2:45PM [facility] [place] [place] CHEST WO IVCON / PROCEDURE REASON: Shortness of breath * * * * Physician Interpretation * * * * EXAMINATION: CHEST CT WITHOUT CONTRAST CLINICAL HISTORY: Shortness of breath Technique: Spiral CT acquisition of the chest from the thoracic inlet to the upper abdomen without contrast. MQ: [id number]_6 CT Radiation dose: Integrated Dose-length product (DLP) for this visit = 477 mGy*cm CT Dose Reduction Employed: Automated exposure control (AEC) Comparison: 10/04/2020 RESULT: Limitations: None. Lines, tubes, and devices: None. Lung parenchyma and airways: Assessment degraded by motion Mild bronchiectasis Mosaic attenuation again present, similar to prior Calcified granuloma right lower lobe Stable 5-6 mm nodular density by the right minor fissure image 83, compared to 10/29/17 Areas of mild fibrotic change and atelectasis/volume loss similar to prior Pleural space: No pleural effusion. No pleural thickening. Lower neck, lymph nodes, and mediastinum: The imaged thyroid gland is normal. Multiple mediastinal lymph nodes up to 1 cm short axis, similar to prior, nonspecific Heart, pericardium, and thoracic vessels: Dilated appearance right main pulmonary artery measuring up to 3.1 cm. Normal course and caliber thoracic aorta.. The cardiac chambers are normal in size. No coronary artery atherosclerotic calcifications are noted, although the study is not optimized for coronary assessment. No pericardial effusion or thickening. Bones and soft tissues: No destructive bone lesion. Degenerative changes.. Upper abdomen: Cholelithiasis. Small hiatal hernia. Banking Pin Adjuster (topogram) images: No additional findings. IMPRESSION: No interval change Areas of bronchiectasis and fibrotic change Mosaic attenuation suggesting small airways/small vessels disease Unchanged borderline mediastinal adenopathy, possibly reactive Dilated pulmonary artery suggests pulmonary arterial hypertension. Cholelithiasis. Small hiatal hernia Manufacturing Engineer Supervisor: [facility] Transcribe Date/Time: Apr 03 2021 7:09A Dictated by : YANCI SMITH MD This examination was interpreted and the report reviewed and electronically signed by: YANCI SMITH MD on Apr 03 2021 8:06AM EST [id number] Normal [facility] Comp Metabolic Panelon 04-02 Albumin [Mass/Vol] 3.7 g/dL Low 3.9-4.9 [facility] Comment on above: Performed By: #### C BC, CMP ####[facility] [address] [place] [address] ALP [Catalytic activity/Vol] 102 U/L Normal 34-123 [facility] Comment on above: Performed By: #### C BC, CMP ####[facility] [address] [place] [address] ALT [Catalytic activity/Vol] 10 U/L Normal 7-38 [facility] Comment on above: Performed By: #### C BC, CMP ####[facility] [address] [place] [address] Anion gap [Moles/Vol] 12 mmol/L Normal 9-18 [facility] Comment on above: Performed By: #### C BC, CMP ####[facility] [address] [place] [address] AST [Catalytic activity/Vol] 14 U/L Normal 13-35 [facility] Comment on above: Performed By: #### C BC, CMP ####[facility] [address] [place] [address] Bilirubin [Mass/Vol] 0.4 mg/dL Normal 0.2-1.3 [facility] Comment on above: Performed By: #### C BC, CMP ####[facility] [address] [place] [address] Calcium [Mass/Vol] 9.3 mg/dL Normal 8.5-10.2 [facility] Comment on above: Performed By: #### C BC, CMP ####[facility] [address] [place] [address] Chloride [Moles/Vol] 101 mmol/L Normal 97-105 [facility] Comment on above: Performed By: #### C BC, CMP ####[facility] [address] [place] [address] CO2 [Moles/Vol] 26 mmol/L Normal 22-30 [facility] Comment on above: Performed By: #### C BC, CMP ####[facility] [address] [place] [address] Creatinine [Mass/Vol] 0.92 mg/dL Normal 0.58-0.96 [facility] Comment on above: Performed By: #### C BC, CMP ####[facility] [address] [place] [address] eGFR- Amer. >60 Normal [facility] Comment on above: Performed By: #### C BC, CMP ####[facility] [address] [place] [address] eGFR-All Other Races >60 Normal [facility] Comment on above: Result Comment: eGFR (Estimated GFR) Units of measure: mL/min/1.73 meters squared eGFR is derived from the reexpressed MDRD Study equation using the following parameters: serum creatinine, age, gender and race. The creatinine assay has been calibrated to be traceable to IDMS. An eGFR <60 mL/min/1.73m2 for >3 months is consistent with chronic kidney disease. Refer to KDOQI guidelines for clinical interpretation. In patients with unstable renal function, e.g. those with acute kidney injury, the eGFR may not accurately reflect actual GFR. Note: On 04/16/2021, the eGFR calculation will be updated to the NKF-ASN Task Force recommended 2020 CKD-EPI creatinine equation which does not include a race variable. For more information or to access a 2020 CKD-EPI calculator, visit the National Kidney Foundation website at kidney.org/professionals/kdoqi/gfr_calculator. Performed By: #### C BC, CMP ####[facility] [address] [place] [address] Glucose [Mass/Vol] 109 mg/dL High 74-99 [facility] Comment on above: Result Comment: The Citizen [place] Diabetes Association (ADA) provides guidance for cutoff values for fasting glucose and random glucose. The ADA defines fasting as no caloric intake for at least 8 hours. Fasting plasma glucose results between 100 to 125 mg/dL indicate increased risk for diabetes (prediabetes). Fasting plasma glucose results greater than or equal to 126 mg/dL meet the criteria for diagnosis of diabetes. In the absence of unequivocal hyperglycemia, results should be confirmed by repeat testing. In a patient with classic symptoms of hyperglycemia or hyperglycemic crisis, random plasma glucose results greater than or equal to 200 mg/dL meet the criteria for diagnosis of diabetes. Reference: Standards of Medical Care in Diabetes 2016, Citizen [place] Diabetes Association. Diabetes Care. 2016.39(Suppl 1). Performed By: #### C BC, CMP ####[facility] [address] [place] [address] Potassium [Moles/Vol] 4.4 mmol/L Normal 3.7-5.1 [facility] Comment on above: Performed By: #### C BC, CMP ####[facility] [address] [place] [address] Protein [Mass/Vol] 6.5 g/dL Normal 6.3-8.0 [facility] Comment on above: Performed By: #### C BC, CMP ####[facility] [address] [place] [address] Sodium [Moles/Vol] 139 mmol/L Normal 136-144 [facility] Comment on above: Performed By: #### C BC, CMP ####[facility] [address] [place] [address] Urea nitrogen [Mass/Vol] 17 mg/dL Normal 7-21 [facility] Comment on above: Performed By: #### C BC, CMP ####[facility] [address] [place] [address] D dimeron 04-02-2021 D dimer 510 ng/mL FEU High <500 [facility] Comment on above: Result Comment: 500 ng/mL FEU is the D Dimer cutoff to exclude DVT (deep vein thrombosis) and PE (pulmonary embolism) in patients with a low pre test probability. Supplemental Comment: In patients over 50 years with a low pre test probability for DVT and/or PE, an age adjusted D dimer cutoff can be calculated as [age x 10] ng/mL FEU. For example, a patient of 88 years would have an age adjusted D dimer cutoff of 880 ng/mL FEU. For patients with a suspected DVT, a D dimer level below 500 ng/mL FEU has a negative predictive value of >98.9%, a sensitivity of >96.9% and a specificity of >35.7%. For patients with a suspected PE, a D dimer level below 500 ng/mL FEU has a negative predictive value of >98.5%, and a sensitivity of >96.5% and a specificity of >38.8%. Reference: Dasha M, et al. ROXIE 2014 311:1117 and Van Alexa N, et al. Ahmet Int Med 2016 165:253. Performed By: #### D FRANCESCA CALIXTO, PROCAL ####[place] [address] Magnesiumon 04-02-2021 Magnesium [Mass/Vol] 1.9 mg/dL Normal 1.7-2.3 [facility] Comment on above: Performed By: #### Ashish CALIXTO MG1, PROCAL ####[facility] [address] [place] [address] Procalcitoninon 04-02-2021 Procalcitonin <0.06 Normal <0.09 [facility] Comment on above: Result Comment: For a guided interpretation of test results, please visit the Change in Procalcitonin Calculator, [email or web address]. Performed By: #### D MADELYNR MG1, PROCAL ####[facility] [address] [place] [address] THERAPY NTon 04-02-2021 THERAPY NT HNO ID: [id number] Author: MEL Maradiaga/Joby Service: Occupational Therapy Author Type: Occupational Therapist Type: Therapy (PT/OT/Speech/Resp) Filed: 04/02/2021 1:46 PM Note Text: OCCUPATIONAL THERAPY MISSED VISIT SERVICE DATE: 04/02/2021 SERVICE TIME: 1345 to 1346 ROOM: [place] [address] Patient not seen due to Declined. Said she was frustrated, said PT came in and client stated she has no OT needs. Said she was independent. Will d/c orders SIGNATURE: MEL Maradiaga/Joby PATIENT NAME: Rosalba Abebe DATE: April 02, 2021 TIME: 1:45 PM [facility] THERAPY NT HNO ID: [id number] Author: Reyna Guaman, PT Service: ? Author Type: Physical Therapist Type: Therapy (PT/OT/Speech/Resp) Filed: 04/02/2021 1:15 PM Note Text: Physical Therapy Evaluation SERVICE DATE: 04/02/2021 SERVICE TIME: 1037 to 1112 ROOM: [place] [address] Recommended Discharge Disposition: Outpatient Physical Therapy Recommended Discharge Disposition Comments: Pt currently functioning below baseline with decreased activity tolerance, causing impaired balance, and overall decreased funcitonal mobility. Pt would benefit from outpatient therapy services for strength program, balance training, and energy conservation education with progressive COPD diagnosis. Pt has 24 hour assist at home Anticipated Discharge Needs: Physical Assist at Home;Supervision at Home Physical Assist at Home for: Cleaning;Transportation;Sh opping Supervision at Home due to: Other: See Comment (Initially for optimal safety) Recommended Discharge Equipment: No equipment needs anticipated PT 6 Clicks Score: 20 Precautions/Activity Restrictions: Fall Risk;Lines/Tubes/Drains Precaution/Activity Restriction Comments: standard Current Hospital Course: Chest XR showing No definite acute process. Emphysematous and fibrotic changes are again noted. Reason for Hospital Admission: CHF exacerbation (HCC), Hypoxia Relevant Past Medical History: HTN, HLD, TIA, COPD / asthma Response to Therapy Interventions: Good participation in activities, Notable progression with functional activities/skills, Low activity tolerance, Requires additional time to complete activities Continue skilled needs due to: Functional mobility/skill impairments, Safety concerns Physical Therapy Problem List: Education Deficit;Impaired Self Care;Decreased Activity Tolerance;Decreased Strength;Functional Mobility Impairment;Balance Impaired Treatment Interventions: Education;Self Care / Home Management;Energy Conservation Training;Joint Mobility;Functional Mobility Training;Strengthening;Bal ance Training;Pain Management Plan for next visit: Bed mobility, Cane training, Chair transfer training, Fall prevention, Family instruction, Gait training, Exercise instruction/handout, Pre-gait activities, Sit to Stand Transfers, Standing Balance, Sitting balance, Stairs training, Standing Tolerance Home Environment Patient Lives With: Spouse Assistance Available: 24 Hour Entry To Home: Stairs;With Rail (bilateral rail - can reach at same time) Number Of Stairs Into Home: 14 Number Of Stairs To Bed/Bath: 0 Tub/Shower Type: walk in shower with shower chair and grab bars. 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 Pt reports use of cane for ambulation in community but states she does not use AD in her home. Pt states 1 fall in September 2020, states she is not sure what happened, but she was walking with a cart while she was shopping and she fell in the parking lot, with the cart falling on top of her. +driving (has not driven for over a year due to catarcts, however she just had surgery to correct, and hopes to begin driving again) Patient Report: Pt reports increasing SOB over the past 3-4 weeks. Also reprorts constant L flank pain. States this has happened to her in the past. Pt agreeable to PT, cleared with RN CURRENT FUNCTIONAL STATUS: Most recent performance Current Functional Mobility Assist Level Additional Information Rolling Supine to Sit Stand By Assistance Sit to Supine Additional Information OOB in bedside chair at session end Scooting Stand By Assistance Sit to Stand Stand By Assistance;Additional Information Pt uses UE support appropriately with no AD Stand to Sit Stand By Assistance;Additional Information Pt performs safe approach to surface, reaches UE back without cues, and demonstrates eccentric control Bed to Chair Toilet/Commode Gait Stand By Assistance;Additional Information Gait Device: Cane Gait Distance (feet): 2 X 80 Pt ambulates with reciprocating stepping pattern with cane. Wide CHACHA noted and moderately increased lateral sway, however no near LOB. Pt verbalizes low activity tolerance, and proceeds to take standing breaks when necessary leading to extended time to complete. Pt motivated to improve. Does not reach for furniture in [place] for support. Stairs Contact Guard Assistance;Additional Information Stairs Device: Rail;Cane Number of Stairs: 10 Pt ascends stairs with step to gait pattern with unilateral rail and cane. Requires standing break at top of steps secondary to SOB. Pt descends steps with step to gait pattern with bilateral UE on unilateral rail (lateral rupesh (more content not included)... Normal [facility] Troponin Ton 04-02-2021 Troponin T <0.010 Normal 0.000-0.02 9 [facility] Comment on above: Performed By: #### T NT ####[facility] [address] [place] [id number] US DVT LOWER BILon 2 US DVT LOWER TAI * * *Final Report* * * DATE OF EXAM: Apr 02 2021 7:27PM [facility] 1005 - US DVT LOWER TAI / PROCEDURE REASON: Leg swelling * * * * Physician Interpretation * * * * EXAMINATION: RIGHT AND LEFT LOWER EXTREMITY DEEP VENOUS ULTRASOUND WITH DOPPLER IMAGING CLINICAL HISTORY: Lower extremity swelling TECHNIQUE: Grayscale with compression maneuvers, color Doppler and spectral Doppler imaging of the right and left proximal deep veins was performed. Grayscale with compression maneuvers of the right and left peroneal and posterior tibial veins was performed. The right and left great and small saphenous veins were evaluated at their insertion to the deep system. Images were obtained and stored in a permanent archive. MQ: USLEB_1 COMPARISON: None RESULT: RIGHT LOWER EXTREMITY PROXIMAL DEEP VEINS Distal External Iliac, Common Femoral and Proximal Profunda Veins: Compression: Normal Doppler: Normal, spontaneous respirophasic flow. Normal response to augmentation. Femoral vein: Compression: Normal Doppler: Normal, spontaneous respirophasic flow. Normal response to augmentation. Popliteal vein: Compression: Normal Doppler: Normal, spontaneous respirophasic flow. Normal response to augmentation. CALF DEEP VEINS Peroneal veins: Patent visualized segments on color Doppler interrogation. Posterior tibial veins: Patent visualized segments on color Doppler interrogation Gastrocnemius and Soleal veins: Not imaged. SUPERFICIAL VEINS Great saphenous: Patent and compressible at insertion into common femoral vein; not otherwise assessed. Small Saphenous: Patent and compressible in the proximal calf, not otherwise assessed. LEFT LOWER EXTREMITY PROXIMAL DEEP VEINS Distal External Iliac, Common Femoral and Proximal Profunda Veins: Compression: Normal Doppler: Normal, spontaneous respirophasic flow. Normal response to augmentation. Femoral vein: Compression: Normal Doppler: Normal, spontaneous respirophasic flow. Normal response to augmentation. Popliteal vein: Compression: Normal Doppler: Normal, spontaneous respirophasic flow. Normal response to augmentation. CALF DEEP VEINS Peroneal veins: Patent visualized segments on color Doppler interrogation Posterior tibial veins: Patent visualized segments on color Doppler interrogation Gastrocnemius and Soleal veins: Not imaged. SUPERFICIAL VEINS Great saphenous: Patent and compressible at insertion into common femoral vein; not otherwise assessed. Small Saphenous: Patent and compressible in the proximal calf, not otherwise assessed. IMPRESSION: Negative study for proximal DVT in the left and right lower extremities. Negative study for limited calf DVT assessment in the left and right lower extremities. Negative study for superficial thrombophlebitis in the imaged segments of the left and right lower extremities. Manufacturing Engineer Supervisor: PSCTricia Transcribe Date/Time: Apr 02 2021 8:46P Dictated by : YANCI SMITH MD This examination was interpreted and the report reviewed and electronically signed by: YANCI SMITH MD on Apr 02 2021 8:48PM EST [id number] Normal [facility] HISTORY PHYSICALon HISTORY PHYSICAL HNO ID: [id number] Author: Cande Walker DO Service: Hospital Medicine Author Type: Physician Type: HANDP Filed: 04/01/2021 9:35 PM Note Text: HOSPITAL MEDICINE HISTORY AND PHYSICAL PCP: Ally Espinosa DO NIGHT AND WEEKEND COVERAGE: [place] COVERAGE: Days: [phone], please page attending physician. Nights: [phone], please page [place] [facility]ist Night coverage pager [phone]. SUBJECTIVE Chief Complaint: sob HPI: ? 70 yo f with h/o HTN, HLD, TIA, COPD/asthma presents with SOB x 1-2 weeks. Worsened over past few days. Now dyspnea with any exertion. Does have some mild orthopnea. Chest is a bit tight when feeling SOB, but no tightness at rest currently. Denies palpitations, new leg swelling or calf pain. No recent surgery, travel, immobilization. Denies h/o VTE, CHF, afib, CAD. Takes lasix for leg swelling chronically. Denies f/c, cough, myalgias, n/V/D, abd pain. Not really wheezing. ? Pt states that back in October she was told during a wrist surgery that she had borderline low pulse ox, and then again was told the same thing during a cataract procedure. Was asymptomatic at the time, so did not follow up or pursue any cardiac or pulmonary testing. Last cardiac testing was in 2019. ? Went to PCP office today and reported that home pulse ox was ranging 80-95%, and was found to be 87% in the office on RA. Does not use home O2. Sent to ED for further evaluation. in the ER her eval really didn't show anything definitive She is not in CHF and her last echo was normal. I think this due to worsening of her pulmonary fibrosis. She also has copd. She is being admited for o2 and solumedrol as well as duoneb. She will also be seen by pulmonary PAST MEDICAL HISTORY Diagnosis Date - Anemia due to vitamin B12 deficiency due to dietary causes - Benign essential hypertension - Bone pain - Chest pain possibly cardiac, continue baby aspirin daily - Colon cancer screening 06/2016 cologuard test negative - Electrocardiogram abnormal order for nuclear stress test to be done at [facility] - Essential hypertension continue meds - Fatty liver 11/2015 - Fibromyalgia - GERD (gastroesophageal reflux disease) take pantoprazole first thing in the morning on an empty stomach, at least 1/2 hour before eating - Hyperlipidemia - Insomnia - Joint pain - Kidney stone change tamsulosin to as needed - Left flank pain - Migraine consider trial of imitrex after stress test is completed and if it is wnl - Mini stroke 2016 - Morbid obesity (HCC) - Multiple joint pain - Multiple lacunar infarcts (HCC) - Obesity, unspecified - Obstructive sleep apnea syndrome consider CPAP titration in near future if morning headaches continue - Osteoarthritis of multiple joints s/p B/L TKR - Osteopenia 2015 - Peripheral neuropathy 02/2016 - Rib fracture - Solitary pulmonary nodule present on computed tomography of lung repeat CT of chest in 07/2016 - Stomach cramps - Tremor - Vitamin D deficiency PAST SURGICAL HISTORY Procedure Laterality Date - ARTHRP KNE CONDYLEANDPLATU MEDIALANDLAT COMPARTMENTS Bilateral - CARPAL TUNNEL Left 02/09/2014 - SECTION HX [facility] 1985 - COLONOSCOPY Removal of polyps, [facility] 01/2013 - F LITHOTRIPSY [facility], 8mm kidney stone, rt side w/ stent placement 2013 - TOTAL ABDOMINAL HYSTERECTOMY - OPPONENSPLASTY SUPFCIS TDN TR TYP EA TDN Left FAMILY HISTORY Problem Relation Age of Onset - Prostate Cancer Father - other (Uterine cancer) Father - other (Myocardial infarction) Father - Prostate Cancer Paternal Grandmother - Prostate Cancer Paternal Uncle - Diabetes Other - other (Neck cancer) Brother Social History Tobacco Use - Smoking status: Former Smoker Quit date: 02/27/1987 Years since quittin.1 - Smokeless tobacco: Never Used - Tobacco comment: Former smoker; Tobacco reviewed with patient 08/30/2015 Vaping Use - Vaping Use: Never used Substance Use Topics - Alcohol use: No Comment: Non-drinker - Drug use: No Comment: No reported history Medications: Reviewed Allergies: ALLERGIES Allergen Reactions - Amoxicillin-Pot Cla* Diarrhea, GI Upset - Anesthetics - Amide* Other: See Comments BECOMES AGGRESSIVE AND COMBATIVE. STOPS BREATHING DURING SURGERY. - Aspirin Vomiting, Other: See Comments Blood in stool , adverse reaction - Bee Venom Protein (* Swelling - Cortisone Other: See Comments CAUSES PAIN AND BURNING - Darvocet-N 100 [Pro* GI Upset, Vomiting - Estrogens Other: See Comments ALL HORMONES, HAVE TRIED MANY. GIVES BREAKTHROUGH BLEEDING - Influenza Virus Vac* Unknown - Iodinated Contrast * Hives, Vomiting ALL DYES - Iodine And Iodide C* Swelling - Levaquin [Levofloxa* GI Upset E.E.S. - Nsaids (Non-Steroid* Unknown - Paxil [Paroxetine H* Other: See Comments Weight gain - Spider Venom Swelling - Venom-Wasp Swelling Review of Systems: GENERAL: No weight los (more content not included)... Normal [facility] NURSING PROGon 04-01-2021 NURSING PROG HNO ID: [id number] Author: Liv Berg RN Service: Nursing Author Type: Registered Nurse Type: Nursing Progress Note Filed: 04/01/2021 5:01 PM Note Text: Nursing Progress Note Patient Name: Rosalba Abebe Patient [facility]-[id number] Daily Note: Pt [facility] into [facility] in stable condition from [facility]. Skin assessed. Oriented to unit, call light in reach. This note was completed by: Liv Berg [facility] Clinical Summary: HMSPatient IDon 12-18-2018 [facility] Work Phone: Office Visit: New - clydei t with practice, Rm: 6on 12-18-2018 NEGATED: Highlighted rowbone scan history of the whole body on 11/05/2017 at [facility] Work Phone: NEGATED: Highlighted rowxray history of the lumbar spine on 10/17/2018 at [facility] Work Phone: Comprehensive Panelon 2018 ALP [Catalytic activity/Vol] 206 U/L High 45-117 [facility] Comment on above: Performed By: #### L LIP #### [address] [address] Bilirubin [Mass/Vol] 0.3 mg/dL Normal 0.2-1.0 [facility] Comment on above: Performed By: #### L LIP #### [facility] [address] [place], [place] [address] Protein [Mass/Vol] 7.2 g/dL Normal 6.4-8.2 [facility] Comment on above: Performed By: #### L LIP #### [facility] [address] [place], [place] [address] ALT [Catalytic activity/Vol] 17 U/L Normal 12-78 [facility] Comment on above: Performed By: #### L LIP #### [address], [place] [address] AST [Catalytic activity/Vol] 19 U/L Normal 15-37 [facility] Comment on above: Performed By: #### L LIP #### [facility] [address] [place], [place] [address] Creatinine [Mass/Vol] 0.70 mg/dL Normal 0.51-0.95 [facility] Comment on above: Performed By: #### L LIP #### [facility] [address] [place], [place] [address] Albumin [Mass/Vol] 3.6 g/dL Normal 3.4-5.0 [facility] Comment on above: Performed By: #### L LIP #### [facility] [address] [place] [address] Anion gap [Moles/Vol] 9 mmol/L Normal 8-16 [facility] Comment on above: Performed By: #### L LIP #### [facility] [address] [place], [place] [address] CO2 [Moles/Vol] 30 mmol/L Normal 21-32 [facility] Comment on above: Performed By: #### L LIP #### [facility] [address] [place], [place] [address] Glucose [Mass/Vol] 96 mg/dL Normal 70-99 [facility] Comment on above: Performed By: #### L LIP #### [facility] [address] [place], [place] [address] Urea nitrogen [Mass/Vol] 23 mg/dL High 7-18 [facility] Comment on above: Performed By: #### L LIP #### [facility] [address] [place], [place] [address] Calcium [Mass/Vol] 9.3 mg/dL Normal 8.5-10.1 [facility] Comment on above: Performed By: #### L LIP #### [facility] [address] [place], [place] [address] Chloride [Moles/Vol] 104 mmol/L Normal 98-107 [facility] Comment on above: Performed By: #### L LIP #### [address] [address] Potassium [Moles/Vol] 4.6 mmol/L Normal 3.5-5.1 [facility] Comment on above: Performed By: #### L LIP #### [facility] [address] [place] [address] Sodium [Moles/Vol] 138 mmol/L Normal 136-145 [facility] Comment on above: Performed By: #### L LIP #### [place] [address] Hemogramon 12-07-2018 Erythrocyte distribution width (RBC) [Ratio] 13.2 % Normal 11.5-15.9 [facility] Comment on above: Performed By: #### L LIP #### [place] [address] Hematocrit (Bld) [Volume fraction] 42.6 % Normal 37.0-47.0 [facility] Comment on above: Performed By: #### L LIP #### [place] [address] Hemoglobin (Bld) [Mass/Vol] 13.5 g/dL Normal 12.0-16.0 [facility] Comment on above: Performed By: #### L LIP #### [place] [address] MCH (RBC) [Entitic mass] 31.7 pg High 27.0-31.0 [facility] Comment on above: Performed By: #### L LIP #### [place] [address] MCHC (RBC) [Mass/Vol] 31.7 % Low 32.0-36.0 [facility] Comment on above: Performed By: #### L LIP #### [place] [address] MCV (RBC) [Entitic vol] 100.0 fL High 81.0-99.0 [facility] Comment on above: Performed By: #### L LIP #### [place] [address] Platelet mean volume (Bld) [Entitic vol] 9.7 fL Normal 7.1-10.5 [facility] Comment on above: Performed By: #### L LIP #### [facility] [address] [place], [place] [address] Platelets (Bld) [#/Vol] 266 thou/cmm Normal 150-400 [facility] Comment on above: Performed By: #### L LIP #### [facility] [address] [place], [place] [address] RBC (Bld) [#/Vol] 4.26 mil/cmm Normal 4.20-5.40 [facility] Comment on above: Performed By: #### L LIP #### [facility] [address] [place], [place] [address] WBC (Bld) [#/Vol] 8.2 thou/cmm Normal 4.8-10.5 [facility] Comment on above: Performed By: #### L LIP #### [place] [address] Lipid Profileon 12-07-2018 Cholesterol [Mass/Vol] 155 mg/dL Normal 0-199 [facility] Comment on above: Performed By: #### L LIP #### [facility] [address] [place], [place] [address] Cholesterol in HDL [Mass/Vol] 71 mg/dL Normal >40 [facility] Comment on above: Performed By: #### L LIP #### [facility] [address] [place], [place] [address] Cholesterol in LDL [Mass/Vol] 57 mg/dL Normal 0-150 [facility] Comment on above: Performed By: #### L LIP #### [facility] [address] [place], [place] [address] Cholesterol.total/Chol esterol in HDL [Mass ratio] 2.2 {ratio} Normal 1.8-5.3 [facility] Comment on above: Performed By: #### L LIP #### [facility] [address] [place] [address] Triglyceride Blood 133 mg/dL Normal 0-149 [facility] Comment on above: Performed By: #### L LIP #### [place] [id number] Risk Factor See Below Normal [facility] Comment on above: Result Comment: Card iac Risk Factor The CHD risk factor is based on the total Chol/HDL ratio. Other factors affect CHD risk such as hypertension, smoking, diabetes, severe obesity and premature CHD. Cardiac Risk Total Chol/HDL ratio Men Women 1/2 avg risk 3.4-4.9 3.3-6.3 Avg risk 5.0-9.5 6.4-7.0 2x avg risk 9.6-23.3 7.1-10.9 3x avg risk >23.4 >11.0 Performed By: #### L LIP #### [place] [id number] MDRD GFRon 12-07-2018 GFR/1.73 sq M predicted among non-blacks MDRD (S/P/Bld) [Vol rate/Area] mL/min/{1.73_m2} Normal >60mL/min/ 1.73m2 [facility] Comment on above: Result Comment: If t he patient is , multiply the result by 1.210. Performed By: #### L LIP #### [place] [id number] Vitamin B12on 12-07-2018 Cobalamin (Vitamin B12) [Mass/Vol] 404 pg/mL Normal 193-986 [facility] Comment on above: Performed By: #### L LIP #### [address] [address] XR LUMBAR PARS 4V AP/LAT/OBL X2on 10-17-2018 XR LUMBAR PARS 4V AP/LAT/OBL X2 * * *Final Report* * * DATE OF EXAM: Oct 17 2018 1:20PM LDX 5233 - XR LUMBAR PARS 4V AP/LAT/OBL X2 / PROCEDURE REASON: multiple diagnoses * * * * Physician Interpretation * * * * EXAM TITLE: X-RAY LUMBAR SPINE DATE: 10/17/2018 COMPARISON: CT abdomen and pelvis 01/01/2018 CLINICAL INDICATION/HISTORY: Back pain TECHNIQUE: AP, bilateral oblique and lateral views of the lumbar spine and a cone-down view of the lumbosacral junction. FINDINGS: No spondylolysis or spondylolisthesis. No evidence of an acute fracture. No lytic or blastic osseous lesions. Moderate to severe disc space narrowing at the T12-L1, L4-L5 and L5-S1 levels. Facet joint arthrosis at L3-L4, L4-L5 and L5-S1 soft tissues are unremarkable.. IMPRESSION: Lumbar spondylosis. Manufacturing Engineer Supervisor: P[employer] Transcribe Date/Time: Oct 18 2018 3:01P Dictated by : LUISA MONTALVO MD This examination was interpreted and the report reviewed and electronically signed by: LUISA MONTALVO MD on Oct 18 2018 3:04PM EST Normal [facility] CRPon 07-13-2018 CRP [Mass/Vol] 0.86 mg/dL High 0.00-0.30 [facility] Comment on above: Performed By: #### C RP3 #### [place] [address] Rheumatoid Factoron 07-14-19 19 Rheumatoid Factor < 10.0 Normal 0.0-15.0 [facility] Comment on above: Performed By: #### R F1 #### [place] [address] Sed Rateon 07-12-2018 Sed Rate 34 mm/hr High 0-20 [facility] Comment on above: Performed By: #### L ESR #### [place] [address] TSHon 07-12-2018 TSH Qn 1.39 uIU/mL Normal 0.34-4.82 [facility] Comment on above: Performed By: #### L TSH #### [place] [address] Uric Acid Bloodon 06-30-2018 Uric Acid Blood 3.4 mg/dL Normal 2.6-6.0 [facility] Comment on above: Performed By: #### L URIC #### [facility] [address] [place] [address] [address] ABDOMEN AND PELVIS W/O CO NTRASTon 01-01-2018 CT ABDOMEN AND PELVIS W/O CONTRAST Performed at [facility] APPROVED BY: Justin Gonzalez MD EXAMINATION: CT ABDOMEN AND PELVIS WITHOUT IV CONTRAST CLINICAL HISTORY: Left-sided flank pain with nausea. TECHNIQUE: Non-IV contrast imaging of the abdomen and pelvis was performed using standard technique, scanning from just above the dome of the diaphragm to the symphysis pubis. Unenhanced imaging is limited for the evaluation of some intra-abdominal and pelvic pathology. Sagittal and coronal reconstructions. MQ: [id number] Contrast: IV: None Oral: None. CT Radiation dose: Integrated Dose-length product (DLP) for this visit = 1002 mGy*cm. CT Dose Reduction Employed: Automated exposure control (AEC) was used. COMPARISON: 10/29/2017. RESULT: Abdomen / Pelvis: Liver: Unremarkable. Biliary: Multiple tiny gallstones layering within the gallbladder. No bile duct dilatation. Spleen: Unremarkable. Pancreas: Unremarkable. Adrenals: No mass. Kidneys: Nonobstructing 2 mm stone midpole left kidney. The kidneys otherwise unremarkable. No ureteral stone. No hydronephrosis. GI Tract: No bowel dilation. Scattered diverticula in the distal descending and proximal sigmoid colon. No convincing radiographic evidence for acute diverticulitis. Distended rectum with stool. Lymph Nodes: Slight prominence of lymph nodes in the pelvis along the external iliac lymph danny chain bilaterally. It measures up to 10 mm in short axis diameter. Stable. Mesentery/peritoneum: No ascites. Retroperitoneum: No mass. Vasculature: Abdominal aorta is not aneurysmally dilated. Pelvis: No mass or ascites. Status post hysterectomy. 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 Lower thorax: Mild changes of interstitial fibrosis at both lung bases. IMPRESSION: Scattered diverticula are noted in the distal descending and proximal sigmoid colon. No convincing changes of acute diverticulitis presently. Changes on prior CT scan were quite subtle. Moderate amount of stool within a distended rectum. Very small nonobstructing left renal stone. Cholelithiasis. Stable bony changes in the pelvis consistent with hepatic disease. Stable bilateral external iliac lymph nodes. Most likely reactive. Normal [facility] Total 25-OH Vitamin Don 11-0 Total 25-OH Vitamin D 39.4 ng/mL Normal 30.0-100.0 [facility] Comment on above: Performed By: #### 2 5VD1 #### [facility] [address] [place] [address] Comprehensive Panelon 2017 Albumin [Mass/Vol] 3.5 g/dL Normal 3.4-5.0 [facility] Comment on above: Performed By: #### L P14 #### [facility] [address] [place] [address] ALP [Catalytic activity/Vol] 204 U/L High 46-116 [facility] Comment on above: Performed By: #### L P14 #### [place] [address] ALT-SGPT Blood 19 U/L Normal 14-63 [facility] Comment on above: Performed By: #### L P14 #### [place] [address] Anion gap [Moles/Vol] 9 mmol/L Normal 8-20 [facility] Comment on above: Performed By: #### L P14 #### [place] [address] AST-SGOT Blood 19 U/L Normal 15-37 [facility] Comment on above: Performed By: #### L P14 #### [place] [address] Bilirubin Ql (U) 0.3 mg/dL Normal 0.2-1.0 [facility] Comment on above: Performed By: #### L P14 #### [facility] [address] [place] [address] Calcium [Mass/Vol] 8.9 mg/dL Normal 8.5-10.1 [facility] Comment on above: Performed By: #### L P14 #### [place] [address] Chloride [Moles/Vol] 105 mmol/L Normal 98-107 [facility] Comment on above: Performed By: #### L P14 #### [facility] [address] [place], [place] [address] CO2 Blood 29 mEq/L Normal 21-32 [facility] Comment on above: Performed By: #### L P14 #### [facility] [address] [place], [place] [address] Creatinine [Mass/Vol] 0.70 mg/dL Normal 0.51-0.95 [facility] Comment on above: Performed By: #### L P14 #### [facility] [address] [place], [place] [address] Glucose [Mass/Vol] 82 mg/dL Normal 70-99 [facility] Comment on above: Performed By: #### L P14 #### [facility] [address] [place] [address] Potassium [Moles/Vol] 5.0 mmol/L Normal 3.5-5.1 [facility] Comment on above: Performed By: #### L P14 #### [facility] [address] [place] [address] Protein [Mass/Vol] 6.7 g/dL Normal 6.4-8.2 [facility] Comment on above: Performed By: #### L P14 #### [facility] [address] [place] [address] Sodium [Moles/Vol] 138 mmol/L Normal 136-145 [facility] Comment on above: Performed By: #### L P14 #### [address] [address] Urea nitrogen [Mass/Vol] 15 mg/dL Normal 7-25 [facility] Comment on above: Performed By: #### L P14 #### [facility] [address] [place], [place] [address] Urea nitrogen/Creatinine [Mass ratio] 21 mg/mg High 10-20 [facility] Comment on above: Performed By: #### L P14 #### [facility] [address] [place], [place] [address] Lipase Bloodon 12-24-2017 Lipase Blood 79 U/L Normal 73-393 [facility] Comment on above: Performed By: #### L LIP #### [facility] [address] [place], [place] [address] MDRD eGFRon 12-24-2017 GFR/1.73 sq M predicted among non-blacks MDRD (S/P/Bld) [Vol rate/Area] mL/min/{1.73_m2} Normal >60mL/min/ 1.73m2 [facility] Comment on above: Result Comment: If t he patient is , multiply the result by 1.210. Performed By: #### L GFR #### [facility] [address] [place], [place] [address] Vital Signs Date Time Vital Sign Value Performing Clinician Facility 07-31-2024 14:05-0400 Body height 158.8 cm Nehal Calle MD Work Phone: [facility] 07-31-2024 14:05-0400 Body mass index (BMI) [Ratio] 35.64 kg/m2 Nehal Calle MD Work Phone: [facility] 07-31-2024 14:05-0400 Body weight 89.81 kg Nehal Calle MD Work Phone: [facility] 07-31-2024 14:05-0400 Diastolic blood pressure 62 mm[Hg] Nehal Calle MD Work Phone: [facility] 07-31-2024 14:05-0400 Heart rate 65 /min Nehal Calle MD Work Phone: [facility] 07-31-2024 14:05-0400 Respiratory rate 16 /min Nehal Calle MD Work Phone: [facility] 07-31-2024 14:05-0400 SaO2% (BldA) [Mass fraction] 96 % Nehal Calle MD Work Phone: [facility] 07-31-2024 14:05-0400 Systolic blood pressure 104 mm[Hg] Nehal Calle MD Work Phone: [facility] 07-31-2024 14:02-0400 Body height 158.8 cm Pulm Wstr Work Phone: [facility] 07-31-2024 14:02-0400 Body mass index (BMI) [Ratio] 35.64 kg/m2 Pulm Wstr Work Phone: [facility] 07-31-2024 14:02-0400 Body weight 89.81 kg Pulm Wstr Work Phone: [facility] 07-31-2024 14:02-0400 Heart rate 65 /min Pulm Wstr Work Phone: [facility] 07-31-2024 14:02-0400 Respiratory rate 16 /min Pulm Wstr Work Phone: [facility] 07-31-2024 14:02-0400 SaO2% (BldA) [Mass fraction] 96 % Pulm Wstr Work Phone: [facility] 07-15-2024 13:39-0400 Body temperature 98.2 [degF] Dr. Ally Espinosa DO Work Phone: [facility] 07-15-2024 13:39-0400 Body weight 89.[address] Ally Espinosa DO Work Phone: [facility] 07-15-2024 13:39-0400 Diastolic blood pressure 57 mm[Hg] Dr. Ally Espinosa DO Work Phone: [facility] 07-15-2024 13:39-0400 Heart rate 81 /min Dr. Ally Espinosa DO Work Phone: [facility] 07-15-2024 13:39-0400 Respiratory rate 17 /min Dr. Ally Espinosa DO Work Phone: [facility] 07-15-2024 13:39-0400 SaO2% (BldA) [Mass fraction] 94 % Dr. Ally Espinosa DO Work Phone: [facility] 07-15-2024 13:39-0400 Systolic blood pressure 120 mm[Hg] Dr. Ally Espinosa DO Work Phone: [facility] 07-03-2024 12:56-0400 Body height 158.8 cm Ally Sheets DO Work Phone: [facility] 07-03-2024 12:56-0400 Body mass index (BMI) [Ratio] 35.64 kg/m2 Ally Sheets DO Work Phone: [facility] 07-03-2024 12:56-0400 Body weight 89.81 kg Ally Sheets DO Work Phone: [facility] 07-03-2024 12:56-0400 Diastolic blood pressure 76 mm[Hg] Ally Sheets DO Work Phone: [facility] 07-03-2024 12:56-0400 Heart rate 80 /min Ally Sheets DO Work Phone: [facility] 07-03-2024 12:56-0400 SaO2% (BldA) [Mass fraction] 97 % Ally Sheets DO Work Phone: [facility] 07-03-2024 12:56-0400 Systolic blood pressure 124 mm[Hg] Ally Sheets DO Work Phone: [facility] 06-20-2024 13:55-0400 Body height 160.[address] Ally Espinosa DO Work Phone: [facility] 06-20-2024 13:55-0400 Body mass index (BMI) [Ratio] 35.4 kg/m2 Dr. Ally Espinosa DO Work Phone: [facility] 06-20-2024 13:55-0400 Body weight 90.[address] Ally Espinosa DO Work Phone: [facility] 06-20-2024 13:55-0400 Diastolic blood pressure 82 mm[Hg] Dr. Ally Espinosa DO Work Phone: [facility] 06-20-2024 13:55-0400 Heart rate 83 /min Dr. Ally Espinosa DO Work Phone: [facility] 06-20-2024 13:55-0400 Respiratory rate 18 /min Dr. Ally Espinosa DO Work Phone: [facility] 06-20-2024 13:55-0400 SaO2% (BldA) [Mass fraction] 94 % Dr. Ally Espinosa DO Work Phone: [facility] 06-20-2024 13:55-0400 Systolic blood pressure 122 mm[Hg] Dr. Ally Espinosa DO Work Phone: [facility] 06-03-2024 08:55-0400 Body height 160.[address] Ally Espinosa DO Work Phone: [facility] 06-03-2024 08:55-0400 Body mass index (BMI) [Ratio] 34.9 kg/m2 Dr. Ally Espinosa DO Work Phone: [facility] 06-03-2024 08:55-0400 Body temperature 98.4 [degF] Dr. Ally Espinosa DO Work Phone: [facility] 06-03-2024 08:55-0400 Body weight 89.[address] Ally Espinosa DO Work Phone: [facility] 06-03-2024 08:55-0400 Diastolic blood pressure 51 mm[Hg] Dr. Ally Espinosa DO Work Phone: [facility] 06-03-2024 08:55-0400 Heart rate 86 /min Dr. Ally Espinosa DO Work Phone: [facility] 06-03-2024 08:55-0400 Respiratory rate 15 /min Dr. Ally Espinosa DO Work Phone: [facility] 06-03-2024 08:55-0400 SaO2% (BldA) [Mass fraction] 95 % Dr. Ally Espinosa DO Work Phone: [facility] 06-03-2024 08:55-0400 Systolic blood pressure 103 mm[Hg] Dr. Ally Sheets DO Work Phone: [facility] 01-11-2024 14:11-0500 Body mass index (BMI) [Ratio] 37.15 kg/m2 Nehal Calle MD Work Phone: [facility] 01-11-2024 [id number] Body temperature 99 [degF] Nehal Calle MD Work Phone: [facility] 01-11-2024 [id number] Body weight 93.62 kg Nehal Calle MD Work Phone: [facility] 01-11-2024 [id number] Diastolic blood pressure 75 mm[Hg] Nehal Calle MD Work Phone: [facility] 01-11-2024 14:11-0500 Heart rate 75 /min Nehal Calle MD Work Phone: [facility] 01-11-2024 14:11-0500 SaO2% (BldA) [Mass fraction] 97 % Nehal Calle MD Work Phone: [facility] 01-11-2024 14:11-0500 Systolic blood pressure 164 mm[Hg] Nehal Calle MD Work Phone: [facility] 01-04-2024 14:09-0500 Body height 158.8 cm Ally Sheets DO Work Phone: [facility] 01-04-2024 14:09-0500 Body mass index (BMI) [Ratio] 36 kg/m2 Ally Sheets DO Work Phone: [facility] 01-04-2024 14:09-0500 Body temperature 98.01 [degF] Ally Sheets DO Work Phone: [facility] 01-04-2024 14:09-0500 Body weight 90.72 kg Ally Sheets DO Work Phone: [facility] 01-04-2024 14:09-0500 Diastolic blood pressure 68 mm[Hg] Ally Sheets DO Work Phone: [facility] 01-04-2024 14:09-0500 Heart rate 80 /min Ally Sheets DO Work Phone: [facility] 01-04-2024 14:09-0500 Respiratory rate 16 /min Ally Sheets DO Work Phone: [facility] 01-04-2024 14:09-0500 SaO2% (BldA) [Mass fraction] 96 % Ally Sheets DO Work Phone: [facility] 01-04-2024 14:09-0500 Systolic blood pressure 112 mm[Hg] Ally Sheets DO Work Phone: [facility] 06-21-2023 13:56-0400 Body mass index (BMI) [Ratio] 36.72 kg/m2 Nehal Calle MD Work Phone: [facility] 06-21-2023 13:56-0400 Body weight 92.53 kg Nehal Calle MD Work Phone: [facility] 06-21-2023 13:56-0400 Diastolic blood pressure 80 mm[Hg] Nehal Calle MD Work Phone: [facility] 06-21-2023 13:56-0400 Heart rate 72 /min Nehal Calle MD Work Phone: [facility] 06-21-2023 13:56-0400 Respiratory rate 16 /min Nehal Calle MD Work Phone: [facility] 06-21-2023 13:56-0400 SaO2% (BldA) [Mass fraction] 96 % Nehal Calle MD Work Phone: [facility] 06-21-2023 13:56-0400 Systolic blood pressure 142 mm[Hg] Nehal Calle MD Work Phone: [facility] 06-21-2023 13:39-0400 Body height 158.8 cm Pul Ws Work Phone: [facility] 06-21-2023 13:39-0400 Body mass index (BMI) [Ratio] 36.72 kg/m2 Pulm Wstr Work Phone: [facility] 06-21-2023 13:39-0400 Body weight 92.53 kg Pulm Wstr Work Phone: [facility] 06-21-2023 13:39-0400 Heart rate 72 /min Pulm Wstr Work Phone: [facility] 06-21-2023 13:39-0400 Respiratory rate 16 /min Pulm Wstr Work Phone: [facility] 06-21-2023 13:39-0400 SaO2% (BldA) [Mass fraction] 96 % Pulm Wstr Work Phone: [facility] 06-08-2023 13:16-0400 Body height 158.8 cm Ally Sheets DO Work Phone: [facility] 06-08-2023 13:16-0400 Body mass index (BMI) [Ratio] 34.74 kg/m2 Ally Sheets DO Work Phone: [facility] 06-08-2023 13:16-0400 Body temperature 97.9 [degF] Ally Sheets DO Work Phone: [facility] 06-08-2023 13:16-0400 Body weight 87.54 kg Ally Sheets DO Work Phone: [facility] 06-08-2023 13:16-0400 Diastolic blood pressure 74 mm[Hg] Ally Sheets DO Work Phone: [facility] 06-08-2023 13:16-0400 Heart rate 67 /min Ally Sheets DO Work Phone: [facility] 06-08-2023 13:16-0400 Respiratory rate 16 /min Ally Sheets DO Work Phone: [facility] 06-08-2023 13:16-0400 SaO2% (BldA) [Mass fraction] 93 % Ally Sheets DO Work Phone: [facility] 06-08-2023 13:16-0400 Systolic blood pressure 122 mm[Hg] Ally Sheets DO Work Phone: [facility] 12-14-2022 11:14-0400 Body weight 88 kg Nehal Calle MD Work Phone: [facility] 12-14-2022 11:14-0400 Diastolic blood pressure 64 mm[Hg] Nehal Calle MD Work Phone: [facility] 12-14-2022 11:14-0400 Heart rate 72 /min Nehal Calle MD Work Phone: [facility] 12-14-2022 11:14-0400 SaO2% (BldA) [Mass fraction] 95 % Nehal Calle MD Work Phone: [facility] 12-14-2022 11:14-0400 Systolic blood pressure 122 mm[Hg] Nehal Calle MD Work Phone: [facility] 06-12-2022 13:29-0400 Body height 158.8 cm Pulm Wstr Work Phone: [facility] 06-12-2022 13:29-0400 Body weight 92.53 kg Pulm Wstr Work Phone: [facility] 06-12-2022 13:29-0400 Heart rate 69 /min Pulm Wstr Work Phone: [facility] 06-12-2022 13:29-0400 Respiratory rate 14 /min Pulm Wstr Work Phone: [facility] 06-12-2022 13:29-0400 SaO2% (BldA) [Mass fraction] 98 % Pulm Wstr Work Phone: [facility] 04-18-2022 13:32-0500 Body height 157.5 cm Ally Sheets DO Work Phone: [facility] 04-18-2022 13:32-0500 Body temperature 98.4 [degF] Ally Sheets DO Work Phone: [facility] 04-18-2022 13:32-0500 Body weight 96.44 kg Ally Sheets DO Work Phone: [facility] 04-18-2022 13:32-0500 Diastolic blood pressure 68 mm[Hg] Ally Sheets DO Work Phone: [facility] 04-18-2022 13:32-0500 Heart rate 70 /min Ally Sheets DO Work Phone: [facility] 04-18-2022 13:32-0500 Respiratory rate 16 /min Ally Sheets DO Work Phone: [facility] 04-18-2022 13:32-0500 SaO2% (BldA) [Mass fraction] 100 % Ally Sheets DO Work Phone: [facility] 04-18-2022 13:32-0500 Systolic blood pressure 128 mm[Hg] Ally Sheets DO Work Phone: [facility] 03-10-2022 13:56-0500 Body weight 99.34 kg Nehal Calle MD Work [facility] [facility] 01-31-2022 13:05-0500 Body height 157.5 cm Deepika Hernández DO Work Phone: [facility] 01-31-2022 13:05-0500 Body weight 101.29 kg Deepika Hernández DO Work Phone: [facility] 01-31-2022 13:05-0500 Diastolic blood pressure 70 mm[Hg] Deepika Hernández DO Work Phone: [facility] 01-31-2022 13:05-0500 Heart rate 91 /min Deepika Hernández DO Work Phone: [facility] 01-31-2022 13:05-0500 SaO2% (BldA) [Mass fraction] 98 % Deepika Hernández DO Work Phone: [facility] 01-31-2022 13:05-0500 Systolic blood pressure 136 mm[Hg] Deepika Hernández DO Work Phone: [facility] 01-16-2022 13:36-0500 Diastolic blood pressure 80 mm[Hg] Ally Sheets DO Work Phone: [facility] 01-16-2022 13:36-0500 Systolic blood pressure 130 mm[Hg] Ally Sheets DO Work Phone: [facility] 01-16-2022 13:03-0500 Body height 157.5 cm Ally Sheets DO Work Phone: [facility] 01-16-2022 13:03-0500 Body temperature 98.4 [degF] Ally Sheets DO Work Phone: [facility] 01-16-2022 13:03-0500 Body weight 102.51 kg Ally Sheets DO Work Phone: [facility] 01-16-2022 13:03-0500 Heart rate 92 /min Ally Sheets DO Work Phone: [facility] 01-16-2022 13:03-0500 SaO2% (BldA) [Mass fraction] 94 % Ally Sheets DO Work Phone: [facility] 11-17-2021 13:55-0400 Body weight 107.05 kg Nehal Calle MD Work Phone: [facility] 11-17-2021 13:55-0400 Diastolic blood pressure 82 mm[Hg] Nehal Calle MD Work Phone: [facility] 11-17-2021 13:55-0400 Heart rate 84 /min Nehal Calle MD Work Phone: [facility] 11-17-2021 13:55-0400 SaO2% (BldA) [Mass fraction] 97 % Nehal Calle MD Work Phone: [facility] 11-17-2021 13:55-0400 Systolic blood pressure 144 mm[Hg] Nehal Calle MD Work Phone: [facility] 10-13-2021 12:22-0400 Body weight 112.95 kg Jenelle Aurin 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 Work Phone: [facility] 10-13-2021 12:22-0400 Diastolic blood pressure 74 mm[Hg] Jenelle Aurin 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 Work Phone: [facility] 10-13-2021 12:22-0400 Heart rate 80 /min Jenelle Aurin 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 Work Phone: [facility] 10-13-2021 12:22-0400 SaO2% (BldA) [Mass fraction] 97 % Jenelle Aurin 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 Work Phone: [facility] 10-13-2021 12:22-0400 Systolic blood pressure 151 mm[Hg] Jenelle Aurin [employer] 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 Work Phone: [facility] 08-19-2021 13:42-0400 Body height 160 cm Ally Sheets DO Work Phone: [facility] 08-19-2021 13:42-0400 Body temperature 99 [degF] Ally Sheets DO Work Phone: [facility] 08-19-2021 13:42-0400 Body weight 109.95 kg Ally Sheets DO Work Phone: [facility] 08-19-2021 13:42-0400 Diastolic blood pressure 70 mm[Hg] Ally Sheets DO Work Phone: [facility] 08-19-2021 13:42-0400 Heart rate 60 /min Ally Sheets DO Work Phone: [facility] 08-19-2021 13:42-0400 Respiratory rate 16 /min Ally Sheets DO Work Phone: [facility] 08-19-2021 13:42-0400 SaO2% (BldA) [Mass fraction] 95 % Ally Sheets DO Work Phone: [facility] 08-19-2021 13:42-0400 Systolic blood pressure 124 mm[Hg] Ally Sheets DO Work Phone: [facility] 08-10-2021 12:56-0400 Body height 160 cm Deepika Hernández DO Work Phone: [facility] 08-10-2021 12:56-0400 Body weight 108.95 kg Deepika Hernández DO Work Phone: [facility] 08-10-2021 12:56-0400 Diastolic blood pressure 80 mm[Hg] Deepika Hernández DO Work Phone: [facility] 08-10-2021 12:56-0400 Heart rate 73 /min Deepika Hernández DO Work Phone: [facility] 08-10-2021 12:56-0400 SaO2% (BldA) [Mass fraction] 94 % Deepika Hernández DO Work Phone: [facility] 08-10-2021 12:56-0400 Systolic blood pressure 136 mm[Hg] Deepika Hernández DO Work Phone: [facility] 05-20-2021 13:18-0400 Body height 158.8 cm Ally Sheets DO Work Phone: [facility] 05-20-2021 13:18-0400 Body temperature 98.1 [degF] Ally Sheets DO Work Phone: [facility] 05-20-2021 13:18-0400 Body weight 113.58 kg Ally Sheets DO Work Phone: [facility] 05-20-2021 13:18-0400 Diastolic blood pressure 70 mm[Hg] Ally Sheets DO Work Phone: [facility] 05-20-2021 13:18-0400 Heart rate 63 /min Ally Sheets DO Work Phone: [facility] 05-20-2021 13:18-0400 Respiratory rate 16 /min Ally Sheets DO Work Phone: [facility] 05-20-2021 13:18-0400 SaO2% (BldA) [Mass fraction] 98 % Ally Sheets DO Work Phone: [facility] 05-20-2021 13:18-0400 Systolic blood pressure 122 mm[Hg] Ally Sheets DO Work Phone: [facility] NEGATED: Highlighted [id number] 12:25-0400 BMI (Body Mass Index) 45.15 kg/m2 Bo Wilkinson AT [facility] Work Phone: NEGATED: Highlighted [id number] 12:25-0400 Body weight 109.77 kg Bo Wilkinson AT [facility] Work Phone: NEGATED: Highlighted [id number] 12:25-0400 Body weight 110 kg Bo Wilkinson AT [facility] Work Phone: NEGATED: Highlighted [id number] 12:25-0400 BP Diastolic 66 mm[Hg] Bo Wilkinson AT [facility] Work Phone: NEGATED: Highlighted [id number] 12:25-0400 BP Systolic 132 mm[Hg] Bo Wilkinson AT [facility] Work Phone: NEGATED: Highlighted [id number] 12:25-0400 Height 156.21 cm Bo Wilkinson AT [facility] Work Phone: NEGATED: Highlighted [id number] 12:25-0400 Height 156 cm Bo Wilkinson AT [facility] Work Phone: NEGATED: Highlighted [id number] 12:25-0400 Pulse (Heart Rate) 67 /min Bo Wilkinson AT [facility] Work Phone: Encounters Encounter Date Encounter Type Care Provider Facility Start: 07-31-2024 End: 07-31-2024 Patient encounter procedure [facility]m [facility] Work Phone: [facility] Comment on above: Subacute cough (Prim benjamín Dx); Mild intermittent asthma without complication (HCC); Bird fancier's lung (HCC); Former cigarette smoker Start: 07-31-2024 End: 07-31-2024 ambulatory [facility] Work Phone: [facility] Comment on above: Spirometry Start: 07-24-2024 End: 07-24-2024 Refill Ally Espinosa DO Work Phone: [facility] Comment on above: Refill Request Start: 07-15-2024 End: 07-15-[address] Beau Alatorre MD -[facility] Work Phone: Start: 07-15-2024 End: 07-15-[address] Ally Espinosa DO Work Phone: [facility] Work Phone: Start: 07-15-2024 End: 07-15-2024 ambulatory Ally Espinosa Facility:[facility] Start: 07-03-2024 End: 07-03-2024 Patient encounter procedure Ally Espinosa DO Work Phone: [facility] Comment on above: Medicare annual [facility], subsequent (Primary Dx); Chronic diastolic CHF (congestive heart failure) (HCC); Loose stools; Lumbar back pain; Midline thoracic back pain, unspecified chronicity; Nocturnal hypoxia; Other secondary parkinsonism (HCC); ILD (interstitial lung disease) (HCC); Obesity, Class II, BMI 35-39.9 Start: 07-03-2024 End: 07-03-2024 ambulatory ALLY ESPINOSA Facility:[facility] Start: 07-01-2024 End: 07-01-[address] Ally Espinosa DO Work Phone: [facility] Work Phone: Start: 07-01-2024 End: 07-01-[address] Beau Alatorre [facility] -[facility] Work Phone: Start: 07-01-2024 End: 07-01-2024 ambulatory [facility] Facility:[facility] Start: 06-24-2024 End: 06-24-2024 ambulatory Leslie [facility] Comment on above: Population Health Na vigation Outreach ([employer] Attributed Member- Chart Review/) Start: 06-23-2024 Non-patient / Non-visit [facility]. Panda leal [facility] Start: 06-23-2024 End: 06-23-[address] Ally Espinosa DO Work Phone: [facility] Work Phone: Start: 06-23-2024 End: 06-23-[address] Beau Alatorre MD -[facility] Work Phone: Start: 06-23-2024 End: 06-23-2024 ambulatory Beau Celi Facility:[facility] Start: 06-20-2024 End: 06-20-[address] Deepika Simmons MD -[facility] Work Phone: Start: 06-20-2024 End: 06-20-2024 ambulatory Deepika Simmons [facility] Start: 06-18-2024 End: 06-19-2024 Refill Ally Espinosa DO Work Phone: [facility] Comment on above: Refill Request Start: 06-17-2024 End: 07-18-2024 ambulatory Ally Espinosa DO Work Phone: [facility] Start: 06-03-2024 End: 06-03-[address] Ally Espinosa DO Work Phone: [facility] Work Phone: Start: 06-03-2024 End: 06-03-[address] [facility] Start: 06-03-2024 End: 06-03-[address] Beau Alatorre MD -[facility] Work Phone: Start: 06-03-2024 End: 06-03-2024 ambulatory Ally Sheets [facility] Start: 06-03-2024 End: 06-03-2024 ambulatory Beau Alatorre Facility:[facility] Start: 05-29-2024 End: 05-29-2024 Refill Ally C Sheets DO Work Phone: [facility] Comment on above: Refill Request Start: 05-02-2024 End: 05-02-2024 Refill Ally C Sheets DO Work Phone: [facility] Comment on above: Refill Request Start: 03-19-2024 End: 03-19-2024 Refill Ally C Sheets DO Work Phone: [facility] Comment on above: Refill Request Start: 03-05-2024 End: 03-05-2024 Refill Rebecca Vuong [employer] CARETAKER[employer]emaCT TECHNICIAN Work Phone: [facility] Comment on above: Refill Request Start: 02-26-2024 End: 02-26-2024 Refill Ally C Sheets DO Work Phone: [facility] Comment on above: Refill Request Start: 02-16-2024 End: 02-18-2024 Refill Ally C Sheets DO Work Phone: [facility] Comment on above: Refill Request Start: 01-11-2024 End: 01-11-2024 Patient encounter procedure Nehal Calle MD Work Phone: Pulmonary Medicine Comment on above: Bird fancier's lung (HCC) (Primary Dx); Mild intermittent asthma without complication; Class 2 obesity Start: 01-11-2024 End: 01-11-2024 ambulatory ALLY C SHEETS Facility:[facility] Start: 01-08-2024 End: 01-08-2024 Refill Ally C Sheets DO Work Phone: [facility] Comment on above: Refill Request Start: 01-04-2024 End: 01-04-2024 ambulatory ALLY C SHEETS Facility:[facility] Start: 01-04-2024 End: 01-04-2024 Patient encounter procedure Ally C Sheets DO Work Phone: [facility] Comment on above: Hypertension, essent ial (Primary Dx); Gout with manifestations; Obesity, Class I, BMI 30-34.9 Start: 12-05-2023 End: 12-05-2023 Refill Ally C Sheets DO Work Phone: [facility] Comment on above: Refill Request Start: 11-20-2023 End: 11-20-2023 Refill Leslie Mukherjee PA-C Work Phone: Pulmonary Medicine Comment on above: Refill Request Start: 11-16-2023 End: 11-19-2023 ambulatory Nehal Calle MD Work Phone: Pulmonary Medicine Comment on above: chest CT Start: 11-16-2023 End: 11-19-2023 E-mail encounter from caregiver Nehal Calle MD Work Phone: Pulmonary Medicine Start: 11-12-2023 End: 11-12-2023 ambulatory ALLY C SHEETS Facility:[facility] Start: 11-12-2023 End: 11-12-2023 Subsequent hospital visit by physician [facility] ([facility]) Work Phone: Cat Scan Start: 10-19-2023 End: 10-19-2023 Telephone encounter Nehal Calle MD Work Phone: Pulmonary Medicine Comment on above: Orders Start: 10-12-2023 End: 10-12-2023 Refill Ally C Sheets DO Work Phone: [facility] Comment on above: Refill Request Start: 10-08-2023 End: 10-08-2023 Telephone encounter Ally C Sheets DO Work Phone: [facility] Comment on above: Lab Orders Start: 09-10-2023 Refill Ally C She ets DO Work Phone: [facility] Comment on above: Refill Request Start: 08-11-2023 Refill Ally C She ets DO Work Phone: [facility] Comment on above: Refill Request Start: 07-30-2023 Refill Ally C She ets DO Work Phone: [facility] Comment on above: Refill Request Start: 07-29-2023 Refill Ally C She ets DO Work Phone: [facility] Comment on above: Refill Request Start: 07-23-2023 Telephone encounter Ally C Sheets DO Work Phone: [facility] Comment on above: Patient Question Start: 07-05-2023 Telephone encounter Ally C Sheets DO Work Phone: [facility] Comment on above: Patient Update Results Start: 07-03-2023 Refill Ally C She ets DO Work Phone: [facility] Comment on above: Refill Request Start: 07-03-2023 Refill Ally C She ets DO Work Phone: [facility] Comment on above: Refill Request Start: 06-22-2023 Refill Ally C She ets DO Work Phone: [facility] Comment on above: Refill Request Start: 06-21-2023 End: 06-21-2023 ambulatory Pulm [facility] Work Phone: [facility] Comment on above: Spirometry Start: 06-21-2023 End: 06-21-2023 Patient encounter procedure [facility] Work Phone: [facility] Comment on above: Bird fancier's lung (HCC) (Primary Dx); Mild persistent asthma without complication; Class II obesity; Former cigarette smoker Start: 06-15-2023 Telephone encounter Ally C Sheets DO Work Phone: [facility] Comment on above: Lab Orders Start: 06-08-2023 End: 06-08-2023 Patient encounter procedure Ally C Sheets DO Work Phone: [facility] Comment on above: Hypertension, essent ial (Primary Dx); Obesity, Class I, BMI 30-34.9 Start: 05-21-2023 Refill Ally C She ets DO Work Phone: [facility] Comment on above: Refill Request Start: 05-19-2023 Refill Ally C She ets DO Work Phone: [facility] Comment on above: Refill Request Start: 05-10-2023 Refill Ally C Елена ets DO Work Phone: [facility] Comment on above: Refill Request Start: 04-29-2023 Refill Rebecca A Tenzind en 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 Work Phone: [facility] Comment on above: Refill Request Start: 04-19-2023 Telephone encounter Ally C Sheets DO Work Phone: [facility] Comment on above: Referral Request Start: 01-15-2023 Telephone encounter Ally C Sheets DO Work Phone: [facility] Comment on above: Jury Duty Start: 12-28-2022 Refill Ally C Елена ets DO Work Phone: [facility] Comment on above: Refill Request Start: 12-15-2022 Refill Ally C Елена ets DO Work Phone: [facility] Comment on above: Refill Request Start: 12-14-2022 End: 12-14-2022 Patient encounter procedure Nehal Calle MD Work Phone: Pulmonary Medicine Comment on above: Bird fancier's lung (HCC) (Primary Dx); Mild intermittent asthma, uncomplicated; Hypoxemia Refill Request Start: 10-18-2022 Refkt Calle MD Work Phone: Pulmonary Medicine Comment on above: Refill Request Start: 10-12-2022 Refill Ally C She ets DO Work Phone: [facility] Comment on above: Refill Request Start: 10-02-2022 Refill Ally C She ets DO Work Phone: [facility] Comment on above: Refill Request Start: 09-24-2022 Refill Ally C She ets DO Work Phone: [facility] Comment on above: Refill Request Start: 09-21-2022 Refill Ally C She ets DO Work Phone: [facility] Comment on above: Refill Request Start: 08-08-2022 Refill Ally C She ets DO Work Phone: [facility] Comment on above: Refill Request Start: 08-08-2022 Refill Ally C She ets DO Work Phone: [facility] Comment on above: Refill Request Patient Question (Re commendation for doctors) Start: 08-07-2022 Refill Ally C She ets DO Work Phone: [facility] Comment on above: Refill Request Start: 07-01-2022 Refill Ally C She ets DO Work Phone: [facility] Comment on above: Refill Request Start: 06-12-2022 End: 06-12-2022 ambulatory [facility] Work Phone: [facility] Comment on above: Spirometry Start: 06-12-2022 End: 06-12-2022 Patient encounter procedure [facility] Work Phone: [facility] Start: 06-12-2022 End: 06-12-2022 ambulatory [facility] Work Phone: [facility] Comment on above: Spirometry Start: 06-12-2022 End: 06-12-2022 Patient encounter procedure [facility] Work Phone: [facility] Start: 06-08-2022 Refill Ally C She ets DO Work Phone: [facility] Comment on above: Refill Request Start: 05-31-2022 Refill Ally C She ets DO Work Phone: [facility] Comment on above: Refill Request Start: 05-14-2022 Refill Ally C She ets DO Work Phone: [facility] Comment on above: Refill Request Start: 04-29-2022 Refill Ally C She ets DO Work Phone: [facility] Comment on above: Refill Request Start: 04-20-2022 Telephone encounter Ally C Sheets DO Work Phone: [facility] Comment on above: Medication Problem Start: 04-18-2022 End: 04-18-2022 Patient encounter procedure Ally C Sheets DO Work Phone: [facility] Comment on above: ULYSSES (generalized anx iety disorder) (Primary Dx); Chronic insomnia; Chronic bilateral low back pain without sciatica; Hyperlipidemia, unspecified hyperlipidemia type; Gastroesophageal reflux disease with esophagitis without hemorrhage; Chronic diastolic CHF (congestive heart failure) ([facility]); Obesity, Class II, BMI 35-39.9; Hypertensive heart disease with chronic diastolic congestive heart failure ([facility]) Start: 03-10-2022 End: 03-10-2022 Patient encounter procedure Nehal Calle MD Work Phone: Pulmonary Medicine Comment on above: Hypersensitivity pne umonitis (HCC) (Primary Dx); ILD (interstitial lung disease) ([facility]); Chronic respiratory failure with hypoxia ([facility]) Start: 03-07-2022 Refill Ally C She ets DO Work Phone: [facility] Comment on above: Refill Request Start: 03-06-2022 Refill Ally C She ets DO Work Phone: [facility] Comment on above: Refill Request Start: 03-02-2022 Telephone encounter Jenelle mitchell 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 Work Phone: Cardiology Comment on above: Medication Problem ( Refill sent to [facility] Order pharmacy for isosorbide- 90 day supply/Jenelle Campos, [employer] 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/) Start: 02-15-2022 Refill Ally Christiansen ets DO Work Phone: [facility] Comment on above: Refill Request Start: 02-15-2022 Telephone encounter Ally Espinosa DO Work Phone: [facility] Comment on above: Patient Question Start: 02-03-2022 Telephone encounter Ally Dominguez Sheets DO Work Phone: [facility] Comment on above: Lab Orders Start: 01-31-2022 End: 01-31-2022 Patient encounter procedure Deepika Hernández DO Work Phone: Cardiology Comment on above: Chest pain, unspecif ied type (Primary Dx); Chronic diastolic CHF (congestive heart failure) (HCC); Nonrheumatic aortic valve stenosis; Nonrheumatic mitral valve regurgitation; Hypertension, essential; Mixed hyperlipidemia Start: 01-20-2022 Refill Ally Christiansen ets DO Work Phone: [facility] Comment on above: Refill Request Start: 01-19-2022 Telephone encounter Ally Dominguez Sheets DO Work Phone: [facility] Comment on above: medication coverage (Lorazepam prior auth) Start: 01-16-2022 End: 01-16-2022 Patient encounter procedure Ally Dominguez Sheets DO Work Phone: [facility] Comment on above: Chronic insomnia (Pr imary Dx); Tremors of nervous system; Chronic bilateral low back pain without sciatica; ULYSSES (generalized anxiety disorder); BMI 40.0-44.9, adult (HCC); Morbid obesity with BMI of 40.0-44.9, adult (HCC); Peripheral polyneuropathy Start: 01-10-2022 Orders Only Nehal Calle MD Work Phone: Pulmonary Medicine Start: 01-04-2022 Telephone encounter Ally C Sheets DO Work Phone: [facility] Comment on above: Results Start: 12-23-2021 Telephone encounter Ally C Sheets DO Work Phone: [facility] Comment on above: Lab Orders Start: 12-15-2021 Telephone encounter Ally C Sheets DO Work Phone: [facility] Comment on above: Lab Orders Start: 12-13-2021 Telephone encounter Ally C Sheets DO Work Phone: [facility] Comment on above: Medication Problem Start: 12-12-2021 Refill Ally C She ets DO Work Phone: [facility] Comment on above: Refill Request; Form s ([employer] Clarification ) Start: 12-03-2021 Refill Ally C She ets DO Work Phone: [facility] Comment on above: Refill Request Start: 11-23-[address] [facility] [address] Start: 11-23-2021 End: 11-23-2021 Subsequent hospital visit by physician [facility] Work Phone: Molecular Imaging Comment on above: Chest pain, unspecif ied type [R07.9] Start: 11-22-2021 E-mail encounter fro m caregiver Nehal Calle MD Work Phone: [facility] Start: 11-22-2021 Patient encounter procedure Nehal Calle MD Work Phone: Pulmonary Medicine Comment on above: E-Consult Start: 11-22-2021 Telephone encounter Ally C Sheets DO Work Phone: [facility] Comment on above: Orders ILD (interstitial shannon ng disease) (HCC) (Primary Dx) Start: 11-17-2021 End: 11-17-2021 Patient encounter procedure Nehal Calle MD Work Phone: Pulmonary Medicine Comment on above: Pulmonary fibrosis ( HCC) (Primary Dx); Mild persistent asthma without complication; Morbid obesity (HCC); Chronic respiratory failure with hypoxia (HCC) Start: 11-17-2021 Refill Ally C She ets DO Work Phone: [facility] Comment on above: Refill Request Start: 11-08-2021 ambulatory Ally C She ets DO Work Phone: Quality Review Specialist Start: 11-08-2021 End: 11-08-2021 Subsequent hospital visit by physician [facility] (I-Stat) Work Phone: Cat Scan Start: 11-02-2021 Telephone encounter Deepika Hernández DO Work Phone: Cardiology Comment on above: Stress Test Start: 10-28-2021 Refill Ally C She ets DO Work Phone: [facility] Comment on above: Refill Request Start: 10-19-2021 Refill Ally C She ets DO Work Phone: [facility] Comment on above: Refill Request Start: 10-13-2021 End: 10-13-2021 ambulatory JENELLE CAMPOS Facility:[facility] Start: 10-13-2021 End: 10-13-2021 Patient encounter procedure Jenelle Campos [employer] 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 Work Phone: Cardiology Comment on above: Chronic diastolic co ngestive heart failure (HCC) (Primary Dx); Hypertension, essential; Mixed hyperlipidemia; Bilateral leg edema Start: 09-28-2021 ambulatory [facility] Torres [facility] [place] Comment on above: Population Health Na vigation Outreach ([employer] care gaps) Start: 09-28-2021 Refill Ally C She ets DO Work Phone: [facility] Comment on above: Refill Request Start: 09-21-2021 Refill Ally C She ets DO Work Phone: [facility] Comment on above: Refill Request Start: 09-16-2021 Telephone encounter Ally Dominguez Sheets DO Work Phone: [facility] Comment on above: Patient Update Start: 08-19-2021 End: 08-19-2021 Patient encounter procedure Ally Dominguez Sheets DO Work Phone: [facility] Comment on above: Chronic insomnia (Pr imary Dx); Peripheral polyneuropathy; Obesity, Class III, BMI >= 40; BMI 40.0-44.9, adult (HCC); Encounter for immunization Start: 08-10-2021 End: 08-10-2021 Patient encounter procedure Deepika Joby Hernández DO Work Phone: Cardiology Comment on above: Chronic diastolic CH F (congestive heart failure) (HCC) (Primary Dx); Nonrheumatic aortic valve stenosis; Nonrheumatic mitral valve regurgitation; Hypertension, essential; Mixed hyperlipidemia; Chest pain, atypical Start: 08-05-2021 Refill Ally C Елена ets DO Work Phone: [facility] Comment on above: Refill Request Start: 07-28-2021 ambulatory Ally C Елена ets DO Work Phone: [facility] Start: 07-28-2021 Patient encounter procedure Ally Dominguez Sheets DO Work Phone: [facility] Comment on above: referrals Start: 07-22-2021 ambulatory Nehal Calle MD Work Phone: Pulmonary Medicine Comment on above: Oxygen Start: 07-22-2021 E-mail encounter fro m caregiver Nehal Calle MD Work Phone: [facility] Start: 07-16-2021 Refill Ally C Елена ets DO Work Phone: [facility] Comment on above: Refill Request Start: 07-13-2021 Refill Ally C Елена ets DO Work Phone: [facility] Comment on above: Refill Request Start: 06-24-2021 Telephone encounter Nehal Calle MD Work Phone: Pulmonary Medicine Comment on above: Medication Problem; Patient Update Referral Request (EN T) Start: 06-15-2021 Refill Ally Christiansen ets DO Work Phone: [facility] Comment on above: Refill Request Start: 06-06-2021 Refill Ally Christiansen ets DO Work Phone: [facility] Comment on above: Refill Request Start: 05-31-2021 Telephone encounter Ally Espinosa DO Work Phone: [facility] Comment on above: Patient Question Start: 05-20-2021 End: 05-20-2021 Patient encounter procedure Ally Dominguez Sheets DO Work Phone: [facility] Comment on above: Nocturnal hypoxia (P rimary Dx); Dermatitis; Seasonal allergies; ULYSSES (generalized anxiety disorder); Hyperlipidemia, unspecified hyperlipidemia type; Kidney stones; Bilateral leg edema; Thrush; Tremors of nervous system; Peripheral polyneuropathy; Obesity, Class III, BMI >= 40; Adult BMI 45.0-49.9 kg/sq m (HCC) Start: 05-12-2021 Refill Ally Christiansen ets DO Work Phone: [facility] Comment on above: Refill Request Rx Refills Start: 05-10-2021 Refill Ally Christiansen ets DO Work Phone: [facility] Comment on above: Refill Request Start: 04-26-2021 End: 04-26-2021 ambulatory JENELLE AURIN Facility:[facility] Start: 04-07-2021 Telephone encounter Vadim Magana RN [facility] Comment on above: Search Director - O ther (CHF) Start: 04-01-2021 End: 04-05-2021 Evaluation and management of inpatient EARLENE OBREGON Facility:[facility] Start: 12-18-2018 End: 12-18-2018 Patient encounter procedure Adela Ferrara MD Work Phone: [facility] Work Phone: Procedures Date Procedure Procedure Detail Performing Clinician Start: 07-31-2024 Co diffusing capacity E nito Calle MD Work Phone: Start: 07-15-2024 X-ray of lumbosacral spine Dr. Ally Espinsoa DO Work Phone: Start: 07-15-2024 X-ray of thoracic sp ine, three views Dr. Ally Espinosa DO Work Phone: Start: 07-01-2024 MRI of brain without contrast Dr. Ally Espinosa DO Work Phone: Start: 06-20-2024 Evaluation of diagno stic study results Dr. Ally Espinosa DO Work Phone: Start: 06-03-2024 Urine lambda light c hyacinth measurement Dr. Ally Espinosa DO Work Phone: Start: 01-11-2024 Lipid 1996 panel - S deanna or Plasma Ally Espinosa DO Work Phone: Start: 06-21-2023 Noninvasive ear/puls e oximetry multiple isidro Calle MD Work Phone: Start: 06-21-2023 Plethysmography lung volumes w/wo airway resist Nehal Calle MD Work Phone: Start: 12-14-2022 Lipid 1995 panel - S daenna or Plasma Nehal Calle MD Work Phone: Start: 06-12-2022 Noninvasive ear/puls e oximetry multiple isidro Mukherjee PA-C Work Phone: Start: 06-12-2022 Brncdilat rspse spmt ry pre&post-brncdilat admn Nehal Calle MD Work Phone: Start: 11-23-2021 Myocardial spect mul tiple studies Deepika Hernández DO Work Phone: Start: 11-22-2020 Adult depression scr eening assessment Ally Espinosa DO Work Phone: Start: 12-18-2018 End: 12-18-2018 Blood pressure within normal parameters - no follow-up required Adela Ferrara MD Work Phone: Start: 12-18-2018 End: 12-18-2018 BMI outside of normal parameters - no follow-up plan/reason not given Adela Ferrara MD Work Phone: Start: 12-18-2018 End: 12-18-2018 Documentation of current medications Adela Ferrara MD Work Phone: Start: 12-18-2018 End: 12-18-2018 Fall plan of care joceline Hinojosa Work Phone: Start: 12-18-2018 End: 12-18-2018 Fall risk assessment joceline zhu MD Work Phone: Start: 12-18-2018 End: 12-18-2018 Pain assessment not documented - reason not given Adela Ferrara MD Work Phone: Start: 12-18-2018 End: 12-18-2018 Ptfalls assess-docd ge2>/yr Adela Ferrara MD Work Phone: Start: 12-18-2018 End: 12-18-2018 Tobacco non-user Adela Ferrara MD Work Phone: Start: 07-27-2016 Mammography Ally S hecheco DO Work Phone: NEGATED: Highlighted rowStart: 12-18-2018 End: 12-18-2018 Documentation of current medications Bo Wilkinson AT Plan of Treatment Date Care Activity Detail Author Start: 02-25-2032 Urine microalbumin profile [facility] Start: 01-10-2029 Lipid panel Lipid Screening [facility] Start: 12-15-2027 Lipid 1996 panel - S deanna or Plasma Lipid Screening [facility] Start: 12-15-2027 Lipid panel Lipid Screening [facility] Start: 01-10-2027 Diabetes Screening Diabetes Screenin g [facility] Start: 11-16-2026 LIPID SCREEN LIPID SCREEN [facility] Start: 01-22-2026 Screening for malign ant neoplasm of colon [facility] Start: 12-14-2025 Diabetes Screening Diabetes Screenin g [facility] Start: 11-22-2025 LIPID SCREEN LIPID SCREEN [facility] Start: 07-03-2025 Annual PCP Team Wool Grower yvonne Disease Visit Annual PCP Team Chronic Disease Visit [facility] Start: 07-03-2025 BP Controlled (<130/80) BP Controlle d (<130/80) [facility] Start: 07-03-2025 Covid-19 Vaccine ( season) Covid-19 Vaccine () [facility] Comment on above: Postponed from 10/20 (Declined at this time) Start: 07-03-2025 RSV Vaccine (1 - Ris k 60-74 years 1-dose series) RSV Vaccine (1 - Risk 60-74 years 1-dose series) [facility] Comment on above: Postponed from 06/01 (Declined at this time) Start: 07-03-2025 Screening for malign ant neoplasm of breast Mammogram Screening [facility] Comment on above: Postponed from 07/27 (Declined at this time) Start: 01-30-2025 End: 01-30-2025 Patient encounter procedure 01/30/2025 1:30 PM EST Office Visit Pulmonary Medicine [address] [place] [address] Simran Saucedo APRN.CT TECHNICIAN [address] [place] [address] 6 mo follow up Pulmonary Medicine Comment on above: 6 mo follow up Start: 01-03-2025 Annual PCP Team Wool Grower yvonne Disease Visit Annual PCP Team Chronic Disease Visit [facility] Start: 01-03-2025 BP Controlled (<130/80) BP Controlle d (<130/80) [facility] Start: 11-16-2024 DIABETES SCREEN DIABETES SCREEN [facility] Start: 10-13-2024 DIABETES SCREEN DIABETES SCREEN [facility] Start: 09-28-2024 DIABETES SCREEN DIABETES SCREEN [facility] Start: 08-06-2024 ambulatory Ambulatory Facility:[facility] Start: 07-31-2024 End: 07-31-2024 Patient encounter procedure 07/31/2024 2:45 PM EDT Office Visit Pulmonary Medicine [address] [place] [id number] Nehal Calle MD [address] [place] [address] 6mth follow up Pulmonary Medicine Comment on above: 6mth follow up Start: 07-31-2024 End: 07-31-2024 Follow-up encounter [facility] Comment on above: follow up 6mth follow up Start: 07-03-2024 End: 10-02-2024 Clostridioides difficile toxin genes [Presence] in Stool by CHELI with probe detection CLOSTRIDIUM DIFFICILE TOXIN BY PCR Lab Routine Loose stools Expected: 07/03/2024, Expires: 10/02/2024 [facility] Comment on above: Expected: 07/03/2024 , Expires: 10/02/2024 Start: 07-03-2024 End: 10-02-2024 Giardia lamblia+Cryptosporidium sp Ag [Presence] in Stool by Immunoassay CRYPTOSPORIDIUM AND GIARDIA ANTIGENS BY EIA Microbiology Routine Loose stools Expected: 07/03/2024, Expires: 10/02/2024 [facility] Work Phone: Comment on above: Expected: 07/03/2024 , Expires: 10/02/2024 Start: 07-03-2024 End: 07-03-2024 Patient encounter procedure [facility] Comment on above: wellness. wellness. Care Gap- BP Start: 06-07-2024 Annual PCP Team Wool Grower yvonne Disease Visit Annual PCP Team Chronic Disease Visit [facility] Start: 06-07-2024 BP Controlled (<130/80) BP Controlle d (<130/80) [facility] Start: 06-07-2024 RSV Vaccine (1 - 1-d ose 60+ series) RSV Vaccine (1 - 1-dose 60+ series) [facility] Comment on above: Postponed from 06/01 (Declined at this time) Start: 06-07-2024 RSV Vaccine (1 - Ris k 60-74 years 1-dose series) RSV Vaccine (1 - Risk 60-74 years 1-dose series) [facility] Comment on above: Postponed from 06/01 (Declined at this time) Start: 06-07-2024 Screening for malign ant neoplasm of breast Mammogram Screening [facility] Comment on above: Postponed from 07/27 (Declined at this time) Start: 06-04-2024 Patient referral [facility] Work Phone: Start: 05-13-2024 DIABETES SCREEN DIABETES SCREEN [facility] Start: 04-05-2024 DIABETES SCREEN DIABETES SCREEN [facility] Start: 02-20-2024 Advance Directive Discussion Advance Directive Discussion [facility] Start: 01-11-2024 End: 01-11-2024 Patient encounter procedure 01/11/2024 2:45 PM EST Office Visit Pulmonary Medicine [address] [place] [address] Nehal Calle MD [address] [place] [address] ct follow up ( CT on 11/12/23) Pulmonary Medicine Comment on above: ct follow up ( CT on 11/12/23) Start: 01-11-2024 End: 01-11-2024 ambulatory 01/11/2024 2:15 PM EST Results Only [place] [facility] [address] [place] [address] Hypertension, essential [I10] [facility] Comment on above: Hypertension, essent ial [I10] Start: 12-15-2023 BP Controlled (<130/80) BP Controlle d (<130/80) [facility] Start: 12-10-2023 End: 12-10-2023 Patient encounter procedure 12/10/2023 1:00 PM EDT Office Visit [facility] [address], [place] [phone] Ally Espinosa DO [address], [place] [id number] f/u Hypertension & weight loss [facility] Comment on above: f/u Hypertension & w eight loss Start: 11-12-2023 End: 07-20-2024 CT Chest WO contrast [facility] Work Phone: Comment on above: Expected: 11/12/2023 , Expires: 07/20/2024 Start: 11-12-2023 End: 11-12-2023 Patient encounter procedure 11/12/2023 1:00 PM EDT Appointment Cat Scan [address] [place] [address] Interstitial pulmonary disease (HCC) [J84.9] [facility] Comment on above: Interstitial pulmona ry disease (HCC) [J84.9] Start: 11-04-2023 Annual PCP Team Wool Grower yvonne Disease Visit Annual PCP Team Chronic Disease Visit [facility] Start: 10-21-2023 Covid-19 Vaccine () Covid-19 Vaccine () [facility] Start: 06-21-2023 End: 06-21-2023 Patient encounter procedure 06/21/2023 2:45 PM EDT Office Visit Pulmonary Medicine [address] [place] [address] Nehal Calle MD [address] [place] [address] LUNG DISEASE Pulmonary Medicine Comment on above: LUNG DISEASE Start: 06-21-2023 End: 06-21-2023 ambulatory 06/21/2023 2:30 PM EDT Procedure [facility] [address] [place] [address] Wstr, Pulm Lab [facility] [address] [place] [address] LUNG DISEASE [facility]UL[facility] Comment on above: LUNG DISEASE Start: 06-21-2023 End: 06-21-2023 ambulatory [facility] Comment on above: 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] LUNG DISEASE Start: 06-15-2023 End: 09-14-2023 25-hydroxyvitamin D3 [Mass/volume] in Serum or Plasma VITAMIN D 25 HYDROXY Lab Routine Vitamin D deficiency Expected: 06/15/2023, Expires: 09/14/2023 [facility] Work Phone: Comment on above: Expected: 06/15/2023 , Expires: 09/14/2023 Start: 06-13-2023 BP CONTROLLED (<130/80) BP CONTROLLE D (<130/80) [facility] Start: 05-25-2023 Covid-19 Vaccine () Covid-19 Vaccine () [facility] Start: 05-21-2023 End: 08-20-2023 25-hydroxyvitamin D3 [Mass/volume] in Serum or Plasma VITAMIN D 25 HYDROXY Lab Routine Paget's disease of bone Expected: 05/21/2023, Expires: 08/20/2023 [facility] Work Phone: Comment on above: Expected: 05/21/2023 , Expires: 08/20/2023 Start: 04-18-2023 ANNUAL PCP TEAM BRAKE MECHANIC YVONNE DISEASE VISIT ANNUAL PCP TEAM CHRONIC DISEASE VISIT [facility] Start: 04-18-2023 BP CONTROLLED (<130/80) BP CONTROLLE D (<130/80) [facility] Start: 03-10-2023 BP CONTROLLED (<130/80) BP CONTROLLE D (<130/80) [facility] Start: 02-19-2023 Advance Directive Discussion Advance Directive Discussion [facility] Start: 02-19-2023 Behavioral Health Screening Behavioral Health Screening [facility] Start: 02-19-2023 Depression Assessment Depression Ass essment [facility] Start: 02-19-2023 zzBehavioral Health Screening zzBehavioral Health Screening [facility] Start: 01-16-2023 ANNUAL PCP TEAM BRAKE MECHANIC YVONNE DISEASE VISIT ANNUAL PCP TEAM CHRONIC DISEASE VISIT [facility] Start: 01-16-2023 COVID-19 VACCINE (5 - Booster for Pfizer series) COVID-19 VACCINE (5 - Booster for Pfizer series) [facility] Comment on above: Postponed from 12/06 (Declined at this time) Start: 12-21-2022 COLOGUARD (FIT-DNA) COLOGUARD (FIT-D NA) [facility] Start: 12-21-2022 COLORECTAL CANCER SCREENING COLORECTAL CANCER SCREENING [facility] Start: 11-22-2022 ANNUAL PCP TEAM BRAKE MECHANIC YVONNE DISEASE VISIT ANNUAL PCP TEAM CHRONIC DISEASE VISIT [facility] Start: 11-22-2022 BP CONTROLLED (<130/80) BP CONTROLLE D (<130/80) [facility] Start: 11-22-2022 DEPRESSION ASSESSMENT DEPRESSION ASS ESSMENT [facility] Comment on above: Postponed from 02/19 (Postponed To Appropriate Date) Start: 11-22-2022 Mammography MAMMOGRAM [facility] Comment on above: Postponed from 07/27 (Declined at this time) Start: 10-20-2022 Covid-19 Vaccine () Covid-19 Vaccine () [facility] Start: 08-19-2022 ANNUAL PCP TEAM BRAKE MECHANIC YVONNE DISEASE VISIT ANNUAL PCP TEAM CHRONIC DISEASE VISIT [facility] Start: 08-19-2022 BP CONTROLLED (<130/80) BP CONTROLLE D (<130/80) [facility] Start: 06-24-2022 COVID-19 VACCINE (6 - Pfizer series) COVID-19 VACCINE (6 - Pfizer series) [facility] Start: 05-20-2022 ANNUAL PCP TEAM BRAKE MECHANIC YVONNE DISEASE VISIT ANNUAL PCP TEAM CHRONIC DISEASE VISIT [facility] Start: 05-20-2022 BP CONTROLLED (<130/80) BP CONTROLLE D (<130/80) [facility] Start: 05-06-2022 BP CONTROLLED (<130/80) BP CONTROLLE D (<130/80) [facility] Start: 04-19-2022 ANNUAL PCP TEAM BRAKE MECHANIC YVONNE DISEASE VISIT ANNUAL PCP TEAM CHRONIC DISEASE VISIT [facility] Start: 02-19-2022 ADVANCE DIRECTIVE DISCUSSION ADVANCE DIRECTIVE DISCUSSION [facility] Start: 02-19-2022 DEPRESSION ASSESSMENT DEPRESSION ASS ESSMENT [facility] Start: 02-18-2022 ADVANCE DIRECTIVE DISCUSSION ADVANCE DIRECTIVE DISCUSSION [facility] Comment on above: Postponed from 02/19 (Declined at this time) Start: 02-07-2022 End: 04-09-2022 25-hydroxyvitamin D3 [Mass/volume] in Serum or Plasma VITAMIN D 25 HYDROXY Lab Routine Vitamin D deficiency Expected: 02/07/2022, Expires: 04/09/2022 [facility] Work Phone: Comment on above: Expected: 02/07/2022 , Expires: 04/09/2022 Start: 02-07-2022 End: 04-09-2022 Urate [Mass/volume] in Serum or Plasma URIC ACID BLOOD Lab Routine Gout with manifestations Expected: 02/07/2022, Expires: 04/09/2022 [facility] Work Phone: Comment on above: Expected: 02/07/2022 , Expires: 04/09/2022 Start: 12-25-2021 End: 02-24-2022 25-hydroxyvitamin D3 [Mass/volume] in Serum or Plasma VITAMIN D 25 HYDROXY Lab Routine Vitamin D deficiency Expected: 12/25/2021, Expires: 02/24/2022 [facility] Work Phone: Comment on above: Expected: 12/25/2021 , Expires: 02/24/2022 Start: 12-15-2021 End: 02-14-2022 Urate [Mass/volume] in Serum or Plasma URIC ACID BLOOD Lab Routine Gout with manifestations Expected: 12/15/2021, Expires: 02/14/2022 [facility] Work Phone: Comment on above: Expected: 12/15/2021 , Expires: 02/14/2022 Start: 12-06-2021 COVID-19 VACCINE (5 - Booster for Pfizer series) COVID-19 VACCINE (5 - Booster for Pfizer series) [facility] Start: 11-22-2021 Adult depression screening assessment DEPRESSION SCREENING [facility] Start: 11-22-2021 End: 01-22-2022 HYPERSEN PNEUMO EVAL 2 HYPERSEN PNEUMO EVAL 2 Lab Routine ILD (interstitial lung disease) (HCC) Expected: 11/22/2021, Expires: 01/22/2022 [facility] Work Phone: Comment on above: Expected: 11/22/2021 , Expires: 01/22/2022 Start: 11-22-2021 End: 01-22-2022 HYPERSEN PNEUMON AB HYPERSEN PNEUMON AB Lab Routine ILD (interstitial lung disease) ([facility]) Expected: 11/22/2021, Expires: 01/22/2022 [facility] Work Phone: Comment on above: Expected: 11/22/2021 , Expires: 01/22/2022 Start: 11-22-2021 Mammography MAMMOGRAM [facility] Comment on above: Postponed from 07/27 (Declined at this time) Start: 11-22-2021 Urine microalbumin profile DTAP,TDAP,TD (1 - Tdap) [facility] Comment on above: Postponed from 06/01 (Declined at this time) Start: 11-08-2021 End: 01-08-2022 Hemoglobin A1c in Blood HGB A1C Lab Routine BMI 40.0-44.9, adult ([facility]) Expected: 11/08/2021, Expires: 01/08/2022 [facility] Work Phone: Comment on above: Expected: 11/08/2021 , Expires: 01/08/2022 Start: 11-08-2021 End: 01-08-2022 Lipid 1996 panel - Serum or Plasma LIPID PANEL BASIC Lab Routine Hyperlipidemia Expected: 11/08/2021, Expires: 01/08/2022 [facility] Work Phone: Comment on above: Expected: 11/08/2021 , Expires: 01/08/2022 Start: 11-08-2021 End: 01-08-2022 SCHEDULE LAB TESTING SCHEDULE LAB TESTING Lab Routine Expected: 11/08/2021, Expires: 01/08/2022 [facility] Work Phone: Comment on above: Expected: 11/08/2021 , Expires: 01/08/2022 Start: 04-18-2021 COVID-19 VACCINE (4 - Booster for Pfizer series) COVID-19 VACCINE (4 - Booster for Pfizer series) [facility] Start: 02-19-2021 DEPRESSION ASSESSMENT DEPRESSION ASS ESSMENT [facility] Start: 12-18-2018 End: 12-18-2018 Appointment Appointment [facility] Work Phone: Start: 12-18-2018 End: 12-18-2018 Radex spine lumbosacral 2/3 views XR LUMBAR 2-3 VWS AP/LAT [facility] Work Phone: Start: 07-27-2017 Mammography Mammogram Screening [facility] Start: 07-27-2017 Screening for malign ant neoplasm of breast Mammogram Screening [facility] Start: 2016 PNEUMOCOCCAL: 65+ (2 - PCV) PNEUMOCOCCAL: 65+ (2 - PCV) [facility] Start: 2010 RSV Vaccine (1 - 1-d ose 60+ series) RSV Vaccine (1 - 1-dose 60+ series) [facility] Start: 2010 RSV Vaccine (1 - Ris k 60-74 years 1-dose series) RSV Vaccine (1 - Risk 60-74 years 1-dose series) [facility] Start: 06-02-1995 Colonoscopy COLONOSCOPY [facility] Start: 06-02-[address] COLONOGRAPHY [facility] Start: 06-02-1995 FECAL OCCULT BLOOD FECAL OCCULT BLOO D [facility] Start: 06-02-1995 Screening for malign ant neoplasm of colon [facility] Start: 06-02-1995 SIGMOIDOSCOPY SIGMOIDOSCOPY [facility] Start: 1969 Urine microalbumin profile DTAP,TDAP,TD (1 - Tdap) [facility] Start: 1968 BP CONTROLLED (<130/80) BP CONTROLLE D (<130/80) [facility] Start: 1968 Depression Screening Depression Scre ening [facility] End: 11-08-2021 Ct thorax w/o contrast material [facility] Work Phone: Comment on above: 1 Occurrences starti ng 11/08/2021 until 11/08/2021 End: 07-17-2025 DBT Breast - bilateral screening DORA SCREENING W MARI Radiology Routine Encounter for screening mammogram for breast cancer 1 Occurrences starting 06/17/2024 until 07/17/2025 [facility] Work Phone: Comment on above: 1 Occurrences starti ng 06/17/2024 until 07/17/2025 End: 08-10-2022 ECG COMPLETE ECG COMPLETE ECG Routine Chronic diastolic CHF (congestive heart failure) (HCC) Nonrheumatic aortic valve stenosis Nonrheumatic mitral valve regurgitation Hypertension, essential Mixed hyperlipidemia Chest pain, atypical 1 Occurrences starting 08/10/2021 until 08/10/2022 [facility] Work Phone: Comment on above: 1 Occurrences starti ng 08/10/2021 until 08/10/2022 ENTERIC BACTERIAL PA TWILA BY PCR ENTERIC BACTERIAL PANEL BY PCR Lab Routine Loose stools Ordered: 07/03/2024 [facility] Comment on above: Ordered: 07/03/2024 Im adm prq id subq/i m njxs 1 vaccine IMADM PRQ ID SUBQ/IM NJXS 1 VACC Immunization/Injection Routine Encounter for immunization Ordered: 08/19/2021 [facility] Work Phone: Comment on above: Ordered: 08/19/2021 End: 04-09-2023 LUNG DIFFUSION CAPACITY (DLCO) LUNG DIFFUSION CAPACITY (DLCO) PFT Routine ILD (interstitial lung disease) ([facility]) 1 Occurrences starting 03/10/2022 until 04/09/2023 [facility] Work Phone: Comment on above: 1 Occurrences starti ng 03/10/2022 until 04/09/2023 LUNG DIFFUSION CAPAC ITY (DLCO) LUNG DIFFUSION CAPACITY (DLCO) PFT Routine ILD (interstitial lung disease) (HCC) 06/12/2022 1:14 PM EDT [facility] Work Phone: End: 01-13-2024 LUNG DIFFUSION CAPACITY (DLCO) LUNG DIFFUSION CAPACITY (DLCO) PFT Routine Bird fancier's lung (HCC) 1 Occurrences starting 12/14/2022 until 01/13/2024 [facility] Work Phone: Comment on above: 1 Occurrences starti ng 12/14/2022 until 01/13/2024 End: 02-09-2025 LUNG DIFFUSION CAPACITY (DLCO) LUNG DIFFUSION CAPACITY (DLCO) PFT Routine 1 Occurrences starting 01/11/2024 until 02/09/2025 [facility] Comment on above: 1 Occurrences starti ng 01/11/2024 until 02/09/2025 End: 04-09-2023 LUNG VOLUMES LUNG VOLUMES PFT Routine ILD (interstitial lung disease) (HCC) 1 Occurrences starting 03/10/2022 until 04/09/2023 [facility] Work Phone: Comment on above: 1 Occurrences starti ng 03/10/2022 until 04/09/2023 LUNG VOLUMES LUNG VOLUMES PFT Routine ILD (interstitial lung disease) (HCC) 06/12/2022 1:14 PM EDT [facility] Work Phone: End: 01-13-2024 LUNG VOLUMES LUNG VOLUMES PFT Routine Bird fancier's lung (HCC) 1 Occurrences starting 12/14/2022 until 01/13/2024 [facility] Work Phone: Comment on above: 1 Occurrences starti ng 12/14/2022 until 01/13/2024 End: 02-09-2025 LUNG VOLUMES LUNG VOLUMES PFT Routine 1 Occurrences starting 01/11/2024 until 02/09/2025 [facility] Comment on above: 1 Occurrences starti ng 01/11/2024 until 02/09/2025 End: 12-02-2022 NM CARDIAC PERF STRESS/PHARM NM CARDIAC PERF STRESS/PHARM Radiology Routine Chest pain, unspecified type 1 Occurrences starting 11/02/2021 until 12/02/2022 [facility] Work Phone: Comment on above: 1 Occurrences starti ng 11/02/2021 until 12/02/2022 NM Heart Views W str ess and W radionuclide IV [facility] End: 01-13-2024 OXIMETRY WITH AMBULATION OXIMETRY WITH AMBULATION PFT Routine Bird fancier's lung (HCC) 1 Occurrences starting 12/14/2022 until 01/13/2024 [facility] Work Phone: Comment on above: 1 Occurrences starti ng 12/14/2022 until 01/13/2024 Patient Education \cps-sql1\CPS_ PtEducatio n\CDC_FALL_PREVENTION.pd f [facility] Work Phone: Patient referral [facility] Work Phone: End: 02-09-2025 SPIROMETRY BASELINE ONLY SPIROMETRY BASELINE ONLY PFT Routine 1 Occurrences starting 01/11/2024 until 02/09/2025 [facility] Work Phone: Comment on above: 1 Occurrences starti ng 01/11/2024 until 02/09/2025 End: 04-09-2023 SPIROMETRY WITH DILATOR IF OBSTRUCTED SPIROMETRY WITH DILATOR IF OBSTRUCTED PFT Routine ILD (interstitial lung disease) ([facility]) 1 Occurrences starting 03/10/2022 until 04/09/2023 [facility] Work Phone: Comment on above: 1 Occurrences starti ng 03/10/2022 until 04/09/2023 SPIROMETRY WITH DILA TOR IF OBSTRUCTED SPIROMETRY WITH DILATOR IF OBSTRUCTED PFT Routine ILD (interstitial lung disease) ([facility]) 06/12/2022 1:14 PM EDT [facility] Work Phone: End: 01-13-2024 SPIROMETRY WITH DILATOR IF OBSTRUCTED SPIROMETRY WITH DILATOR IF OBSTRUCTED PFT Routine Bird fancier's lung ([facility]) 1 Occurrences starting 12/14/2022 until 01/13/2024 [facility] Work Phone: Comment on above: 1 Occurrences starti ng 12/14/2022 until 01/13/2024 Carotid arteries [facility] Heart [facility] End: 08-02-2025 XR Lumbar spine AP and Lateral and oblique XR LUMBAR PARS DEFECT 4V AP/LAT/BOTH OBL Radiology Routine Lumbar back pain 1 Occurrences starting 07/03/2024 until 08/02/2025 [facility] Comment on above: 1 Occurrences starti ng 07/03/2024 until 08/02/2025 End: 08-02-2025 XR Thoracic spine AP and Lateral and Swimmers XR THORACIC GENERAL 3V AP/LAT/SWIMMERS Radiology Routine Midline thoracic back pain, unspecified chronicity 1 Occurrences starting 07/03/2024 until 08/02/2025 [facility] Comment on above: 1 Occurrences starti ng 07/03/2024 until 08/02/2025 [facility] Immunizations Immunization Date Immunization Notes Care Provider Francesca bloom 02-24-2022 tetanus toxoid, redu wendy diphtheria toxoid, and acellular pertussis vaccine, adsorbed Ally Sheets DO Work Phone: [facility] 10-11-2021 COVID-19 original vaccine, age 12+ yr, monovalent (PFIZER-BIONTECH - SYKES TOP) Pulm Wstr Work Phone: [facility] Work Phone: 08-19-2021 pneumococcal Conjuga te, unspecified formulation Ally Sheets DO Work Phone: [facility] Work Phone: 08-19-2021 pneumococcal (PCV20) vaccine, 20 valent (PREVNAR 20) Ally Sheets DO Work Phone: [facility] 12-16-2020 COVID-19 original vaccine, age 12+ yr, monovalent (PFIZER-BIONTECH - PURPLE TOP) Pulm Wstr Work Phone: [facility] Work Phone: 05-20-2020 COVID-19 vaccine, ag e 12+ yr (PFIZER-BIONTECH - PURPLE TOP) Ally Sheets DO Work Phone: [facility] 04-27-2020 COVID-19 vaccine, ag e 12+ yr (PFIZER-BIONTECH - PURPLE TOP) Ally Sheets DO Work Phone: [facility] 02-27-2020 zoster vaccine recombinant Ally Sheets DO Work Phone: [facility] 11-07-2019 zoster vaccine recombinant Ally Sheets DO Work Phone: [facility] 06-02-2015 pneumococcal polysaccharide vaccine, 23 valent Ally Sheets DO Work Phone: [facility] Work Phone: 12-11-2014 zoster vaccine, live Deena Espinosa DO Work Phone: [facility] Payers Date Payer Category Payer Self-pay 2020 Medicare HUMANA MEDICARE HU[employer]NA GOLD PLUS [id number] 2020-Present [phone] [place] [id number] O [id number] 2020 Medicare HUMANA MEDICARE HUMANA GOLD PLUS [id number] 2020-Present [phone] [place] [id number] O [id number] 2020 Medicare (Managed Care) HUMANA G OLD PLUS [id number] 2020 Private Health Insurance [id number] Unknown [id number] Unknown [id number] Unknown [id number] Unknown [id number] Unknown [id number] Unknown [id number] Unknown [id number] Unknown [id number] Unknown [id number] Social History Date Type Detail Facility Start: 12-18-2018 End: 12-18-2018 Assertion Unknown if ever smoked [facility] Work Phone: Start: 09-28-2015 End: 01-11-2024 Tobacco smoking status NHIS Ex-smoker [facility] Start: [birth year]-27-1962 End: 02-27-1987 History of tobacco use Current smoker [facility] Start: 02-27-1962 End: 02-27-1987 History of tobacco use Cigarette Smoker [facility] Start: 09-28-2015 End: 06-21-2023 Cigarettes smoked current (pack per day) - Reported 1 [facility] Work Phone: Start: 09-28-2015 End: 01-11-2024 Tobacco use and exposure Smokeless tobacco non-user [facility] Start: 05-06-2021 End: 07-31-2024 Alcohol intake Current non-drinker of alcohol (finding) [facility] Start: 09-28-2015 History SDOH Alcohol Comment Non-drinker [facility] Start: 09-28-2015 End: 11-17-2021 Tobacco Comment Former smoker; Tobacco reviewed with patient 08/30/2015 [facility] Start: 1950 Sex Assigned At Female [facility] Start: 04-26-2021 End: 01-16-2022 Exposure to SARS-CoV-2 (event) Not sure [facility] Start: 06-12-2022 End: 06-21-2023 Tobacco use panel [facility] Work Phone: Adult Depression Screening Assessment 1 [facility] Work Phone: Start: 01-17-2020 Gender identity Identifies as female gender (finding) [facility] Start: 01-17-2020 Sexual orientation Heterosexual (finding) [facility] How often to you hav e a drink containing alcohol? Never [facility] Start: 06-09-2024 Sex Female (finding) [facility] Has the [employer], [employer], oil, or water company threatened to shut off services in your home in past 12Mo No [facility] Are you now , , , , never or living with a partner? [facility] Do you feel stress - tense, restless, nervous, or anxious, or unable to sleep at night because your mind is troubled all the time - these days [OSQ] To some extent [facility] (I/We) worried jennifer er (my/our) food would run out before (I/we) got money to buy more. Never true [facility] Functional Status Date Assessment Result Facility 07-03-2024 Total score [AUDIT-C] 0 07/04/19 25 1:57 PM Whit Chatman MA [facility] 04-05-2021 Are you deaf, or do you have serious difficulty hearing No 04/05/2021 4:14 PM Liv Austin RN [facility] 04-05-2021 Are you blind, or do you have serious difficulty seeing, even when wearing glasses No 04/05/2021 4:14 PM Liv Austin RN No [facility] 04-05-2021 Do you have serious difficulty walking or climbing stairs No 04/05/2021 4:14 PM Liv Austin RN [facility] 04-05-2021 Do you have difficul ty dressing or bathing No 04/05/2021 4:14 PM Liv Austin RN [facility] 04-05-2021 Because of a physica l, mental, or emotional condition, do you have difficulty doing errands alone such as visiting a physician's office or shopping No 04/05/2021 4:14 PM Liv Austin, LYDIA No [facility] Mental Status Date Assessment Result Facility 04-05-2021 Because of a physica l, mental, or emotional condition, do you have serious difficulty concentrating, remembering, or making decisions No 04/05/2021 4:14 PM Liv Austin RN No [facility] Clinical Notes 11-12-2017 to 07-31-2024 Nehal Calle MD - 07/31/2024 2:45 PM EDTTelephone Encounter - Roberto Willis MA - 07/24/2024 7:43 AM EDTTelephone Encounter - Roberto Willis MA - 07/24/2024 7:43 AM EDT Note Date & Type Note Facility 07-31-2024 History of Present illness Narrative Images from the original note were not included. . [facility] Note Patient name: Rosalba Abebe PCP: Ally Espinosa DO CC: Follow-up HPI: Rosalba Abebe 74 year old female former 25 pack year smoker, quitting in 1987 with PMH significant for HTN, fatty liver, asthma, allergies, GERD, HLD, SAM not using CPAP, CHF, and bird fancier's lung. Patient refuses to eliminate birds from her environment. She presents today for follow-up visit. Pulmonary function tests show no decline in her capacity. She states she has been coughing more and over the past several days she has actually been able to expectorate small amounts of sputum with slight discoloration. She denies increased shortness of breath or wheezing. No fevers or chills. Not awaken her from sleep. Has known GERD but is asymptomatic. DATA: PFT: 06/2023: PAST MEDICAL HISTORY Diagnosis Date Anemia due to vitamin B12 deficiency due to dietary causes Asthma (HCC) Bird fancier's lung (HCC) Bone pain Chest pain possibly cardiac, continue baby aspirin daily Colon cancer screening 06/2016 cologuard test negative Electrocardiogram abnormal order for nuclear stress test to be done at [facility] Essential hypertension continue meds Fatty liver 11/2015 Fibromyalgia GERD (gastroesophageal reflux disease) take pantoprazole first thing in the morning on an empty stomach, at least 1/2 hour before eating Hyperlipidemia Hypersensitivity pneumonitis (HCC) Insomnia Joint pain Kidney stone change tamsulosin to as needed Left flank pain Migraine consider trial of imitrex after stress test is completed and if it is wnl Mini stroke 2016 Morbid obesity (HCC) Multiple joint pain Multiple lacunar infarcts (HCC) Obesity, unspecified Obstructive sleep apnea syndrome Unable to tolerate positive airway pressure 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 STOPS BREATHING DURING SURGERY. Aspirin Vomiting, Other: See Comments Blood in stool , adverse reaction Bee Venom Protein (* Swelling Cefdinir Diarrhea, GI Upset, Intolerance, Vomiting Cortisone Other: See Comments CAUSES PAIN AND BURNING Darvocet-N 100 [Pro* GI Upset, Vomiting Estrogens Other: See Comments ALL HORMONES, HAVE TRIED MANY. GIVES BREAKTHROUGH BLEEDING Influenza Virus Vac* Unknown Iodinated Contrast * Hives, Vomiting ALL DYES Iodine And Iodide C* Swelling Levaquin [Levofloxa* GI Upset E.E.S. Nsaids (Non-Steroid* Unknown Paxil [Paroxetine H* Other: See Comments Weight gain Spider Venom Swelling Trazodone Intolerance Achiness Venom-Wasp Swelling benztropine (COGENTIN) 0.5 mg tablet Take 0.5 mg by mouth two times a day. isosorbide mononitrate ER (IMDUR) 30 mg 24 hr tablet TAKE 1/2 TABLET ONE TIME DAILY Ipratropium Sewell (ATROVENT) 21 mcg (0.03 %) nasal spray USE 1 SPRAY NASALLY TWICE DAILY allopurinol (ZYLOPRIM) 300 mg tablet TAKE 1 TABLET EVERY DAY omeprazole (PRILOSEC) 40 mg capsule TAKE 1 CAPSULE EVERY DAY potassium chloride ER (KLOR-CON M10) 10 mEq tablet TAKE 2 TABLETS TWICE A DAY furosemide (LASIX) 40 mg tablet TAKE 1 AND 1/2 TABLETS TWICE DAILY simvastatin (ZOCOR) 40 mg tablet TAKE 1 TABLET AT BEDTIME montelukast (SINGULAIR) 10 mg tablet TAKE 1 TABLET AT BEDTIME sertraline (ZOLOFT) 50 mg tablet TAKE 1 TABLET EVERY DAY triamcinolone acetonide (KENALOG) 0.1 % ointment APPLY TO AFFECTED AREA TWICE DAILY NEEDED tamsulosin (FLOMAX) 0.4 mg TAKE 1 CAPSULE EVERY DAY fluticasone-salmeterol (ADVAIR, WIXELA) 250-50 mcg/dose inhaler INHALE 1 PUFF INSTRUCTED TWICE DAILY. Ibandronate 150 mg tablet TAKE 1 TABLET ONE TIME PER MONTH Garlic (ODORLESS GARLIC) 300 mg cap pyridoxine, vitamin B6, (VITAMIN B-6) 100 mg tablet hydroxyzine HCl (ATARAX ORAL) Take by mouth. diphenhydramine HCl (BENADRYL ALLERGY ORAL) Take 2 tablets by mouth every 12 hours as needed. carboxymethylcellulose sodium (ARTIFICIAL TEARS, CMC, OPHTHALMIC) Use in eyes. albuterol HFA (PROVENTIL HFA, VENTOLIN HFA) 90 mcg/actuation inhaler Inhale 2 Puffs as instructed every 4 hours as needed for wheezing/shortness of breath. cholecalciferol (VITAMIN D) 1,000 unit tab tablet Take 1 tablet by mouth once daily. (Patient taking differently: Take 1,000 Units by mouth every other day.) cetirizine (ZYRTEC) 10 mg tablet Take 10 mg by mouth once daily. omega-3/dha/epa/dpa/fish oil (OMEGA-3 2100 ORAL) Take by mouth. Orlistat (KUSUM) 60 mg capsule Take 60 mg by mouth two times a day with meals. POLYETHYLENE GLYCOL 3350 (MIRALAX ORAL) Take by mouth. aspirin, enteric coated (ASPIRIN, ENTERIC COATED) 81 mg EC tablet Take 81 mg by mouth once daily. docusate sodium (COLACE) 100 mg capsule Take 300 mg by mouth once daily. predniSONE (DELTASONE) 10 mg tablet Take two a day for one week then one a day for one week Social History Tobacco Use Smoking status: Former Current packs/day: 0.00 Average packs/day: 1 pack/day for 25.0 years (25.0 ttl pk-yrs) Types: Cigarettes Start date: 02/27/1962 Quit date: 02/27/1987 Years since quittin.4 Smokeless tobacco: Never Tobacco comments: Former smoker; Tobacco reviewed with patient 08/30/2015 Vaping Use Vaping status: Never Used Substance Use Topics Alcohol use: No Comment: Non-drinker Drug use: No Comment: No reported history FAMILY HISTORY Problem Relation Age of Onset Prostate Cancer Father other (Uterine cancer) Father other (Myocardial infarction) Father Prostate Cancer Paternal Grandmother Prostate Cancer Paternal Uncle Diabetes Other other (Neck cancer) Brother PAST SURGICAL HISTORY Procedure Laterality Date ARTHRP KNE CONDYLE&PLATU MEDIAL&LAT COMPARTMENTS Bilateral CARPAL TUNNEL Left 02/09/2014 SECTION HX [facility] 1986 COLONOSCOPY Removal of polyps, LCH 01/2013 F LITHOTRIPSY [facility], 8mm kidney stone, rt side w/ stent placement 2013 F TOTAL ABDOMINAL HYSTERECTOMY OPPONENSPLASTY SUPFCIS TDN TR TYP EA TDN Left PMH, Social history, family history and surgical history reviewed and updated in EMR REVIEW OF SYSTEMS: CONSTITUTIONAL: No fevers, chills, nightsweats, unintended weight loss HEENT: Denies nasal congestion/sinus symptoms, allergy problems. CARDIOVASCULAR: No chest pain, palpitations, orthopnea. Some edema PULM: See HPI GI: No dysphagia/odynophagia, problematic reflux, NEURO: Tremors. New medication causing balance issues INTEGUMENTARY: No new skin changes PHYSICAL EXAMINATION: BP 104/62 Pulse 65 Resp 16 Ht 5' 2.5 (1.59m) Wt 198 lb (89.8kg) SpO2 96% BMI 35.62 kg/(m^2). General Appearance: Obese female, NAD. Skin: Skin color, texture, turgor normal, no suspicious rashes or lesions. Oropharynx: No oral lesions or thrush. Neck: No masses or adenopathy. Lungs: Not labored, normal to percussion, crackles on the right. No wheezing Heart: Regular rate and rhythm, no murmurs. Extremities: No edema or clubbing. Tremors. Assessment/Plan: 1. Subacute cough -Cough could be related to her asthma or her underlying fibrotic lung disease -Trial of steroids. If she improves then will increase her Advair to 500/50 2. Mild intermittent asthma, uncomplicated -See #1 3. Bird fanciers lung -See HPI -Pulmonary function test do not show progression of her disease at this time 4. Former cigarette smoker - Former smoker without sequelae of COPD - Does not qualify for lung cancer screening based on duration of smoking cessation greater than 15 years Nehal Calle MD [facility] documented in this encounter [facility] 07-31-2024 Note HNO ID: [id number] Author: NEHAL CALLE MD Service: ? Author Type: Physician Type: Progress Notes Filed: 07/31/2024 16:21 Note Text: . [facility] Patient name: Rosalba Abebe PCP: Ally Espinosa DO CC: Follow-up HPI: Rosalba Abebe 74 year old female former 25 pack year smoker, quitting in 1987 with PMH significant for HTN, fatty liver, asthma, allergies, GERD, HLD, SAM not using CPAP, CHF, and bird fancier's lung. Patient refuses to eliminate birds from her environment. She presents today for follow-up visit. Pulmonary function tests show no decline in her capacity. She states she has been coughing more and over the past several days she has actually been able to expectorate small amounts of sputum with slight discoloration. She denies increased shortness of breath or wheezing. No fevers or chills. Not awaken her from sleep. Has known GERD but is asymptomatic. DATA: PFT: 06/2023: PAST MEDICAL HISTORY Diagnosis Date Anemia due to vitamin B12 deficiency due to dietary causes Asthma (HCC) Bird fancier's lung (HCC) Bone pain Chest pain possibly cardiac, continue baby aspirin daily Colon cancer screening 06/2016 cologuard test negative Electrocardiogram abnormal order for nuclear stress test to be done at [facility] Essential hypertension continue meds Fatty liver 11/2015 Fibromyalgia GERD (gastroesophageal reflux disease) take pantoprazole first thing in the morning on an empty stomach, at least 1/2 hour before eating Hyperlipidemia Hypersensitivity pneumonitis (HCC) Insomnia Joint pain Kidney stone change tamsulosin to as needed Left flank pain Migraine consider trial of imitrex after stress test is completed and if it is wnl Mini stroke 2016 Morbid obesity (HCC) Multiple joint pain Multiple lacunar infarcts (HCC) Obesity, unspecified Obstructive sleep apnea syndrome Unable to tolerate positive airway pressure 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 STOPS BREATHING DURING SURGERY. Aspirin Vomiting, Other: See Comments Blood in stool , adverse reaction Bee Venom Protein (* Swelling Cefdinir Diarrhea, GI Upset, Intolerance, Vomiting Cortisone Other: See Comments CAUSES PAIN AND BURNING Darvocet-N 100 [Pro* GI Upset, Vomiting Estrogens Other: See Comments ALL HORMONES, HAVE TRIED MANY. GIVES BREAKTHROUGH BLEEDING Influenza Virus Vac* Unknown Iodinated Contrast * Hives, Vomiting ALL DYES Iodine And Iodide C* Swelling Levaquin [Levofloxa* GI Upset E.E.S. Nsaids (Non-Steroid* Unknown Paxil [Paroxetine H* Other: See Comments Weight gain Spider Venom Swelling Trazodone Intolerance Achiness Venom-Wasp Swelling benztropine (COGENTIN) 0.5 mg tablet Take 0.5 mg by mouth two times a day. isosorbide mononitrate ER (IMDUR) 30 mg 24 hr tablet TAKE 1/2 TABLET ONE TIME DAILY Ipratropium Sewell (ATROVENT) 21 mcg (0.03 %) nasal spray USE 1 SPRAY NASALLY TWICE DAILY allopurinol (ZYLOPRIM) 300 mg tablet TAKE 1 TABLET EVERY DAY omeprazole (PRILOSEC) 40 mg capsule TAKE 1 CAPSULE EVERY DAY potassium chloride ER (KLOR-CON M10) 10 mEq tablet TAKE 2 TABLETS TWICE A DAY furosemide (LASIX) 40 mg tablet TAKE 1 AND 1/2 TABLETS TWICE DAILY simvastatin (ZOCOR) 40 mg tablet TAKE 1 TABLET AT BEDTIME montelukast (SINGULAIR) 10 mg tablet TAKE 1 TABLET AT BEDTIME sertraline (ZOLOFT) 50 mg tablet TAKE 1 TABLET EVERY DAY triamcinolone acetonide (KENALOG) 0.1 % ointment APPLY TO AFFECTED AREA TWICE DAILY NEEDED tamsulosin (FLOMAX) 0.4 mg TAKE 1 CAPSULE EVERY DAY fluticasone-salmeterol (ADVAIR, WIXELA) 250-50 mcg/dose inhaler INHALE 1 PUFF INSTRUCTED TWICE DAILY. Ibandronate 150 mg tablet TAKE 1 TABLET ONE TIME PER MONTH Garlic (ODORLESS GARLIC) 300 mg cap pyridoxine, vitamin B6, (VITAMIN B-6) 100 mg tablet hydroxyzine HCl (ATARAX ORAL) Take by mouth. diphenhydramine HCl (BENADRYL ALLERGY ORAL) Take 2 tablets by mouth every 12 hours as needed. carboxymethylcellulose sodium (ARTIFICIAL TEARS, CMC, OPHTHALMIC) Use in eyes. albuterol HFA (PROVENTIL HFA, VENTOLIN HFA) 90 mcg/actuation inhaler Inhale 2 Puffs as instructed every 4 hours as needed for wheezing/shortness of breath. cholecalciferol (VITAMIN D) 1,000 unit tab tablet Take 1 tablet by mouth once daily. (Patient taking differently: Take 1,000 Units by mouth every other day.) cetirizine (ZYRTEC) 10 mg tablet Take 10 mg by mouth once daily. omega-3/dha/epa/dpa/fish oil (OMEGA-3 2100 ORAL) Take by mouth. Orlistat (KUSUM) 60 mg capsule Take 60 mg by mouth two times a day with meals. POLYETHYLENE GLYCOL 3350 (MIRALAX ORAL) Take by jeyson (more content not included)... [facility] 07-24-2024 Telephone encounter Note pharmacy electronically requesting refills as follows: Last seen 07/03/24 . Last refill 06/08/23 . Requested Prescriptions Pending Prescriptions Disp Refills isosorbide mononitrate ER (IMDUR) 30 mg 24 hr tablet [Pharmacy Med Name: Isosorbide Mononitrate ER Oral Tablet Extended Release 24 Hour 30 MG] 45 tablet 3 Sig: TAKE 1/2 TABLET ONE TIME DAILY Please review and advise. Roberto Willis MA [facility] 07-24-2024 Miscellaneous Notes pharmacy electronically requesting refills as follows: Last seen 07/03/24 . Last refill 06/08/23 . Requested Prescriptions Pending Prescriptions Disp Refills isosorbide mononitrate ER (IMDUR) 30 mg 24 hr tablet [Pharmacy Med Name: Isosorbide Mononitrate ER Oral Tablet Extended Release 24 Hour 30 MG] 45 tablet 3 Sig: TAKE 1/2 TABLET ONE TIME DAILY Please review and advise. Roberto Willis MA documented in this encounter [facility] 07-17-2024 Radiology Diagnostic study note [facility] Services [address], [place] [id number] Thoracic Spine 3 Views MR#: [id number] Acct: [id number] Name: ROSALBA ABEBE Rep #: [id number] : 1950 F 74 From: Binh Marrero MD PCP: Dr. Ally Espinosa DO Status: RE Nilsa CLI Study:Thoracic Spine 3 Views Date of Exam: 07/15/24 Exam# [id number] Ordering Dr: Maranda Espinosa DO PROCEDURE: THORACIC SPINE 3 VIEWS 07/15/2024 REASON FOR EXAM: MIDLINE THORACIC BACK PAIN TECHNIQUE: Three views of the thoracic spine COMPARISON: None FINDINGS: There is 50% anterior compression the T7 and T8, with 50% anterior compression at T11, 25% anterior compression at T12, with kyphosis. 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 There is no spondylolisthesis. Levoscoliosis of the upper lumbar spine is noted. Osteopenia is present. Vascular calcifications are visible. RAD/Thoracic Spine 3 Views IMPRESSION: There is 50% anterior compression the T7 and T8, with 50% anterior compression at T11, 25% anterior compression at T12, with kyphosis. MRI or bone scan could be helpful to determine chronicity if clinically indicated. 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 Reading Location: [facility] CC: Dr. Ally Espinosa DO ~ Manufacturing Engineer Supervisor: Signed [facility] 07-17-2024 Radiology Diagnostic study note [facility] Imaging Services [address] [place] [id number] L/S Spine Min 4 Views MR#: [id number] Acct: [id number] Name: ROSALBA ABEBE Rep #: [id number] : 1950 F [id number] From: Freddy Brito MD PCP: Dr. Ally Espinosa DO Status: ZURDO Ash CLI Study:L/S Spine Min 4 Views Date of Exam: 07/15/24 Exam# [id number] Ordering Dr: Maranda Espinosa DO PROCEDURE: L/S SPINE MIN 4 VIEWS 07/15/2024 REASON FOR EXAM: LUMBAR BACK PAIN TECHNIQUE: Four views, AP, bilateral oblique and lateral COMPARISON: None available FINDINGS: 5 [id number] lumbar vertebral body types identified. Leftward curvature, scoliosis. No definite spondylolysis identified. No fracture identified. Mild step retrolisthesis L1 on L2 and L2 on L3. T12-L1 spondylosis/discogenic change L1-2 mild disc space narrowing L2-3 iqlcyihm-kx-iakthv disc space narrowing with degenerative endplate changes L3-4 mild disc space narrowing L4-5 eucxcxlt-kc-pavbkv appearing disc space narrowing and degenerative endplatechanges. Aortoiliac atherosclerotic changes. Lower lumbar facet degenerative changes. Question a heterogeneous appearance of the pelvic bones about the hips and pubicsymphysis, can not exclude possibility of a metastatic disease, correlate with history. RAD/L/S Spine Min 4 Views IMPRESSION: Multilevel spondylosis/discogenic change as above. Question a heterogeneous appearance of the pelvic bones about the hips and pubicsymphysis, can not exclude possibility of a metastatic disease, correlate with history. Reading Location: [id number] CC: Dr. Ally Espinosa DO ~ Manufacturing Engineer Supervisor: Signed [facility] 07-03-2024 Note HNO ID: [id number] Author: ALLY ESPINOSA DO Service: ? Author Type: Physician Type: Progress Notes Filed: 07/26/2024 08:04 Note Text: Rosalba Abebe is a 74 year old female here for a Medicare wellness visit. She sees Dr. Alatorre, neurologist, in [place] She had an MRI of the brain on 07/01, results not back yet She was started on Sinemet for Parkinsonism She will return to see Dr. Alatorre in 07/15 He is going to consider starting her on cymbalta after he assesses her response to the sinemet She sees Dr. Simmons, [facility] She is going to have stress test and an echocardiogram She had a carotid doppler, results not back yet She has had loose stools She has back pain in the upper and lower back Medicare Health Risk Assessment General Health Fair Exercise: Minutes/Day 0 min Exercise: Days/Week 0 days Alcohol: Daily Use Never Alcohol: Drinks/Day Patient does not drink Alcohol: 6 or more drinks Never Feel off balance Yes Concerns: Teeth/Dentures No Concerns: Sexual function No Troubled by feelings Anxious Frequency: Eating healthy diet Nearly every day ADLs requiring help Sitting or standing; Walking; Driving Safety precautions in home/vehicle Yes Smoke, vape, chews tobacco No Difficulty hearing Yes Difficulty seeing Wears glasses Current Providers Specialists: I have reviewed specialist-related care of the patient in the medical record. Medical/Family history review Reviewed and updated problem list, medical/surgical/family/social history, medications, and allergies. Opioid use review Opioid Medications (last 90 days) No data to display Anxiety/Depression screening Recommendation: no further intervention at this time Cognitive screening Mini Cog Score: 2 Cognitive screening reviewed and No further action needed (score 3-5). Functional Observation Was the patient's Timed Up AND Go test unsteady or >= 12 seconds? No Advance Care Planning Surrogate decision maker and/or advance care plan documented Measurements BP 124/76 Pulse 80 Ht 158.8 cm (5' 2.5) Wt 89.8 kg (198 lb) SpO2 97% BMI 35.64 kg/m? Eye exam deferred - sees eye doctor ASSESSMENT/PLAN: 1. Medicare annual wellness visit, subsequent - ICD9: V70.0, ICD10: Z00.00 (primary diagnosis) - Counseled on healthy diet and regular exercise 2. Chronic diastolic CHF (congestive heart failure) (HCC) - ICD9: 428.32, 428.0, ICD10: I50.32 - PARKING FOR HANDICAPPED 3. Loose stools - ICD9: 787.7, ICD10: R19.5 - CRYPTOSPORIDIUM AND GIARDIA ANTIGENS BY EIA - CLOSTRIDIUM DIFFICILE TOXIN BY PCR - ENTERIC BACTERIAL PANEL BY PCR 4. Lumbar back pain - ICD9: 724.2, ICD10: M54.50 - XR LUMBAR PARS DEFECT 4V AP/LAT/BOTH OBL 5. Midline thoracic back pain, unspecified chronicity - ICD9: 724.1, ICD10: M54.6 - XR THORACIC GENERAL 3V AP/LAT/SWIMMERS 6. Nocturnal hypoxia - ICD9: 327.24, ICD10: G47.34 Uses O2 as needed 7. 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 ILD (interstitial lung disease) (HCC) - ICD9: 515, ICD10: J84.9 Uses O2 at night as needed 9. Obesity, Class II, BMI 35-39.9 - ICD9: 278.00, ICD10: E66.812 Lifestyle modification recommended Ally Espinosa DO [facility] 07-03-2024 History of Present illness Narrative Images from the original note were not included. Rosalba Abebe is a 74 year old female here for a Medicare wellness visit. She sees Dr. Alatorre, neurologist, in [place] She had an MRI of the brain on 07/01, results not back yet She was started on Sinemet for Parkinsonism She will return to see Dr. Alatorre in 07/15 He is going to consider starting her on cymbalta after he assesses her response to the sinemet She sees Dr. Simmons, [facility] She is going to have stress test and an echocardiogram She had a carotid doppler, results not back yet She has had loose stools She has back pain in the upper and lower back Medicare Health Risk Assessment General Health Fair Exercise: Minutes/Day 0 min Exercise: Days/Week 0 days Alcohol: Daily Use Never Alcohol: Drinks/Day Patient does not drink Alcohol: 6 or more drinks Never Feel off balance Yes Concerns: Teeth/Dentures No Concerns: Sexual function No Troubled by feelings Anxious Frequency: Eating healthy diet Nearly every day ADLs requiring help Sitting or standing; Walking; Driving Safety precautions in home/vehicle Yes Smoke, vape, chews tobacco No Difficulty hearing Yes Difficulty seeing Wears glasses Current Providers Specialists: I have reviewed specialist-related care of the patient in the medical record. Medical/Family history review Reviewed and updated problem list, medical/surgical/family/social history, medications, and allergies. Opioid use review Opioid Medications (last 90 days) No data to display Anxiety/Depression screening Recommendation: no further intervention at this time Cognitive screening Mini Cog Score: 2 Cognitive screening reviewed and No further action needed (score 3-5). Functional Observation Was the patient's Timed Up & Go test unsteady or >= 12 seconds? No Advance Care Planning Surrogate decision maker and/or advance care plan documented Measurements BP 124/76 Pulse 80 Ht 158.8 cm (5' 2.5) Wt 89.8 kg (198 lb) SpO2 97% BMI 35.64 kg/m Eye exam deferred - sees eye doctor ASSESSMENT/PLAN: 1. Medicare annual wellness visit, subsequent - ICD9: V70.0, ICD10: Z00.00 (primary diagnosis) - Counseled on healthy diet and regular exercise 2. Chronic diastolic CHF (congestive heart failure) (HCC) - ICD9: 428.32, 428.0, ICD10: I50.32 - PARKING FOR HANDICAPPED 3. Loose stools - ICD9: 787.7, ICD10: R19.5 - CRYPTOSPORIDIUM AND GIARDIA ANTIGENS BY EIA - CLOSTRIDIUM DIFFICILE TOXIN BY PCR - ENTERIC BACTERIAL PANEL BY PCR 4. Lumbar back pain - ICD9: 724.2, ICD10: M54.50 - XR LUMBAR PARS DEFECT 4V AP/LAT/BOTH OBL 5. Midline thoracic back pain, unspecified chronicity - ICD9: 724.1, ICD10: M54.6 - XR THORACIC GENERAL 3V AP/LAT/SWIMMERS 6. Nocturnal hypoxia - ICD9: 327.24, ICD10: G47.34 Uses O2 as needed 7. 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 ILD (interstitial lung disease) (HCC) - ICD9: 515, ICD10: J84.9 Uses O2 at night as needed 9. Obesity, Class II, BMI 35-39.9 - ICD9: 278.00, ICD10: E66.812 Lifestyle modification recommended Ally Espinosa DO documented in this encounter [facility] 06-24-2024 Note HNO ID: [id number] Author: LESLIE MEDINA, ? Service: ? Author Type: ? Type: Progress Notes Filed: 06/24/2024 10:56 Note Text: [facility] POPULATION HEALTH NAVIGATION OUTREACH Action/FYI Patient declined scheduling Mamm. Patient Identified by Name and : Yes, via phone Reason for Outreach Care Gap or Scheduling Wellness Visits Care Gap Reviewed:: Annual Wellness visit Breast Cancer screening Controlling Blood Pressure Outreach Outcome/Action Spoke to patient / parent / legal guardian: Patient declined to schedule Population Health Navigation Workflow Pre-Visit Planning Payer: [employer] Signature: Leslie Medina June 24, 2024 10:54 AM [facility] 06-24-2024 History of Present illness Narrative [facility] POPULATION HEALTH NAVIGATION OUTREACH Action/FYI Patient declined scheduling Mamm. Patient Identified by Name and : Yes, via phone Reason for Outreach Care Gap or Scheduling Wellness Visits Care Gap Reviewed:: Annual Wellness visit Breast Cancer screening Controlling Blood Pressure Outreach Outcome/Action Spoke to patient / parent / legal guardian: Patient declined to schedule Population Health Navigation Workflow Pre-Visit Planning Payer: [employer] Signature: Leslie Medina June 24, 2024 10:54 AM documented in this encounter [facility] 06-24-2024 Note Patient Outreach (AG FAMPLE) -------- ROSALBA ABEBE ([id number]) 1950 F Date Time Provider Department 06/24/24 LESLIE MEDINA During your visit today, we recorded the following information about you: Leslie Medina 06/24/2024 10:56 AM Signed [facility] POPULATION HEALTH NAVIGATION OUTREACH Action/FYI Patient declined scheduling Mamm. Patient Identified by Name and : Yes, via phone Reason for Outreach Care Gap or Scheduling Wellness Visits Care Gap Reviewed:: Annual Wellness visit Breast Cancer screening Controlling Blood Pressure Outreach Outcome/Action Spoke to patient / parent / legal guardian: Patient declined to schedule Population Health Navigation Workflow Pre-Visit Planning Payer: [employer] Signature: Leslie Medina June 24, 2024 10:54 AM Allergies As of Date: 06/24/2024 Noted Allergy Reaction AMOXICILLIN-POT CLAVULANATE 10/04/2017 6 - Diarrhea 8 - GI Upset ANESTHETICS - AMIDE TYPE - SELECT*09/28/2015 14 - Other: See Comments Comments: BECOMES AGGRESSIVE AND COMBATIVE. STOPS BREATHING DURING SURGERY. ASPIRIN 09/28/2015 11 - Vomiting 14 - Other: See Comments Comments: Blood in stool , adverse reaction BEE VENOM PROTEIN (HONEY BEE) 09/06/2020 7 - Swelling CEFDINIR 02/05/2023 6 - Diarrhea 8 - GI Upset 5 - Intolerance 11 - Vomiting CORTISONE 09/28/2015 14 - Other: See Comments Comments: CAUSES PAIN AND BURNING DARVOCET-N 100 (PROPOXYPHENE N-AC*09/28/2015 8 - GI Upset 11 - Vomiting ESTROGENS 09/28/2015 14 - Other: See Comments Comments: ALL HORMONES, HAVE TRIED MANY. GIVES BREAKTHROUGH BLEEDING INFLUENZA VIRUS VACCINE WHOLE 12/03/2017 16 - Unknown IODINATED CONTRAST MEDIA 09/28/2015 4 - Hives 11 - Vomiting Comments: ALL DYES IODINE AND IODIDE CONTAINING PROD*09/28/2015 7 - Swelling LEVAQUIN (LEVOFLOXACIN) 09/28/2015 8 - GI Upset Comments: E.E.S. NSAIDS (NON-STEROIDAL ANTI-INFLAM*03/31/2013 16 - Unknown PAXIL (PAROXETINE HCL) 09/28/2015 14 - Other: See Comments Comments: Weight gain SPIDER VENOM 09/06/2020 7 - Swelling TRAZODONE 12/22/2021 5 - Intolerance Comments: Achiness VENOM-WASP 09/06/2020 7 - Swelling Date Reviewed: 01/11/2024 Reviewed by: Nehal Calle MD - Fully Assessed Reason for Visit: Population Health Navigation Outreach [3910] Cmt: [employer] Attributed Member- Chart Review Prescriptions as of 06/24/2024 - LORazepam (ATIVAN) 0.5 mg Take 1 tablet by mouth two times a day as needed for up to 30 days. - Ipratropium Sewell (ATROVENT) 21 mcg (0.03 %) nasal spray USE 1 SPRAY NASALLY TWICE DAILY - buPROPion SR (WELLBUTRIN SR) 150 mg 12 hr tablet TAKE 1 TABLET EVERY MORNING FOR 3 DAYS, THEN 1 TABLET TWO TIMES A DAY. - allopurinol (ZYLOPRIM) 300 mg tablet TAKE 1 TABLET EVERY DAY - omeprazole (PRILOSEC) 40 mg capsule TAKE 1 CAPSULE EVERY DAY - potassium chloride ER (KLOR-CON M10) 10 mEq tablet TAKE 2 TABLETS TWICE A DAY - furosemide (LASIX) 40 mg tablet TAKE 1 AND 1/2 TABLETS TWICE DAILY - simvastatin (ZOCOR) 40 mg tablet TAKE 1 TABLET AT BEDTIME - montelukast (SINGULAIR) 10 mg tablet TAKE 1 TABLET AT BEDTIME - sertraline (ZOLOFT) 50 mg tablet TAKE 1 TABLET EVERY DAY - triamcinolone acetonide (KENALOG) 0.1 % ointment APPLY TO AFFECTED AREA TWICE DAILY NEEDED - tamsulosin (FLOMAX) 0.4 mg TAKE 1 CAPSULE EVERY DAY - fluticasone-salmeterol (ADVAIR, WIXELA) 250-50 mcg/dose inhaler INHALE 1 PUFF INSTRUCTED TWICE DAILY. - Ibandronate 150 mg tablet TAKE 1 TABLET ONE TIME PER MONTH - isosorbide mononitrate ER (IMDUR) 30 mg 24 hr tablet Take 0.5 tablets by mouth once daily. - Garlic (ODORLESS GARLIC) 300 mg cap - pyridoxine, vitamin B6, (VITAMIN B-6) 100 mg tablet - hydroxyzine HCl (ATARAX ORAL) Take by mouth. - diphenhydramine HCl (BENADRYL ALLERGY ORAL) Take 2 tablets by mouth every 12 hours as needed. - carboxymethylcellulose sodium (ARTIFICIAL TEARS, CMC, OPHTHALMIC) Use in eyes. - albuterol HFA (PROVENTIL HFA, VENTOLIN HFA) 90 mcg/actuation inhaler Inhale 2 Puffs as instructed every 4 hours as needed for wheezing/shortness of breath. - cholecalciferol (VITAMIN D) 1,000 unit tab tablet Take 1 tablet by mouth once daily. - guaiFENesin (MUCINEX) 600 mg 12 hr tablet Take 1 tablet by mouth every 12 hours as needed (cough). - cetirizine (ZYRTEC) 10 mg tablet Take 10 mg by mouth once daily. - omega-3/dha/epa/dpa/fish oil (OMEGA-3 2100 ORAL) Take by mouth. - Orlistat (KUSUM) 60 mg capsule Take 120 mg by mouth twice daily with meals. - POLYETHYLENE GLYCOL 3350 (MIRALAX ORAL) Take by mouth. - aspirin, enteric coated (ASPIRIN, ENTERIC COATED) 81 mg EC tablet Take 81 mg by mouth once daily. - docusate sodium (COLACE) 100 mg capsule Take 300 mg by mouth once daily. Problem List As Of Date 06/24/2024 Noted Resolved Hyperlipidemia [E78.5] 10/26/2015 Gout w (more content not included)... [facility] 06-19-2024 Telephone encounter Note pharmacy electronically requesting refills as follows: Last seen 01/04/24 . Last refill 05/02/24 . Requested Prescriptions Pending Prescriptions Disp Refills LORazepam (ATIVAN) 0.5 mg [Pharmacy Med Name: LORazepam Oral Tablet 0.5 MG] 60 tablet Sig: Take 1 tablet by mouth two times a day as needed. Please review and advise. Roberto Willis MA [facility] 06-19-2024 Miscellaneous Notes pharmacy electronically requesting refills as follows: Last seen 01/04/24 . Last refill 05/02/24 . Requested Prescriptions Pending Prescriptions Disp Refills LORazepam (ATIVAN) 0.5 mg [Pharmacy Med Name: LORazepam Oral Tablet 0.5 MG] 60 tablet Sig: Take 1 tablet by mouth two times a day as needed. Please review and advise. Roberto Willis MA documented in this encounter [facility] 06-17-2024 Note Patient Outreach (AG FAMPLE) -------- ROSALBA ABEBE ([id number]) 1950 F Date Time Provider Department 06/17/24 ALLY ESPINOSA During your visit today, we recorded the following information about you: Allergies As of Date: 06/17/2024 Noted Allergy Reaction AMOXICILLIN-POT CLAVULANATE 10/04/2017 6 - Diarrhea 8 - GI Upset ANESTHETICS - AMIDE TYPE - SELECT*09/28/2015 14 - Other: See Comments Comments: BECOMES AGGRESSIVE AND COMBATIVE. STOPS BREATHING DURING SURGERY. ASPIRIN 09/28/2015 11 - Vomiting 14 - Other: See Comments Comments: Blood in stool , adverse reaction BEE VENOM PROTEIN (HONEY BEE) 09/06/2020 7 - Swelling CEFDINIR 02/05/2023 6 - Diarrhea 8 - GI Upset 5 - Intolerance 11 - Vomiting CORTISONE 09/28/2015 14 - Other: See Comments Comments: CAUSES PAIN AND BURNING DARVOCET-N 100 (PROPOXYPHENE N-AC*09/28/2015 8 - GI Upset 11 - Vomiting ESTROGENS 09/28/2015 14 - Other: See Comments Comments: ALL HORMONES, HAVE TRIED MANY. GIVES BREAKTHROUGH BLEEDING INFLUENZA VIRUS VACCINE WHOLE 12/03/2017 16 - Unknown IODINATED CONTRAST MEDIA 09/28/2015 4 - Hives 11 - Vomiting Comments: ALL DYES IODINE AND IODIDE CONTAINING PROD*09/28/2015 7 - Swelling LEVAQUIN (LEVOFLOXACIN) 09/28/2015 8 - GI Upset Comments: E.E.S. NSAIDS (NON-STEROIDAL ANTI-INFLAM*03/31/2013 16 - Unknown PAXIL (PAROXETINE HCL) 09/28/2015 14 - Other: See Comments Comments: Weight gain SPIDER VENOM 09/06/2020 7 - Swelling TRAZODONE 12/22/2021 5 - Intolerance Comments: Achiness VENOM-WASP 09/06/2020 7 - Swelling Date Reviewed: 01/11/2024 Reviewed by: Nehal Calle MD - Fully Assessed Visit Diagnosis:Encounter for screening mammogram for breast cancer [Z12.31] Order(s):[facility] SCREENING [facility] MARI [[id number]] Order #: [id number] FUTURE Prescriptions as of 07/18/2024 - carbidopa-levodopa orally disintegrating (PARCOPA) 25-100 mg per disintegrating tablet Take 1 tablet by mouth three times a day. Take at 8, 2, 8. - LORazepam (ATIVAN) 0.5 mg Take 1 tablet by mouth two times a day as needed for up to 30 days. - Ipratropium Sewell (ATROVENT) 21 mcg (0.03 %) nasal spray USE 1 SPRAY NASALLY TWICE DAILY - allopurinol (ZYLOPRIM) 300 mg tablet TAKE 1 TABLET EVERY DAY - omeprazole (PRILOSEC) 40 mg capsule TAKE 1 CAPSULE EVERY DAY - potassium chloride ER (KLOR-CON M10) 10 mEq tablet TAKE 2 TABLETS TWICE A DAY - furosemide (LASIX) 40 mg tablet TAKE 1 AND 1/2 TABLETS TWICE DAILY - simvastatin (ZOCOR) 40 mg tablet TAKE 1 TABLET AT BEDTIME - montelukast (SINGULAIR) 10 mg tablet TAKE 1 TABLET AT BEDTIME - sertraline (ZOLOFT) 50 mg tablet TAKE 1 TABLET EVERY DAY - triamcinolone acetonide (KENALOG) 0.1 % ointment APPLY TO AFFECTED AREA TWICE DAILY NEEDED - tamsulosin (FLOMAX) 0.4 mg TAKE 1 CAPSULE EVERY DAY - fluticasone-salmeterol (ADVAIR, WIXELA) 250-50 mcg/dose inhaler INHALE 1 PUFF INSTRUCTED TWICE DAILY. - Ibandronate 150 mg tablet TAKE 1 TABLET ONE TIME PER MONTH - isosorbide mononitrate ER (IMDUR) 30 mg 24 hr tablet Take 0.5 tablets by mouth once daily. - Garlic (ODORLESS GARLIC) 300 mg cap - pyridoxine, vitamin B6, (VITAMIN B-6) 100 mg tablet - hydroxyzine HCl (ATARAX ORAL) Take by mouth. - diphenhydramine HCl (BENADRYL ALLERGY ORAL) Take 2 tablets by mouth every 12 hours as needed. - carboxymethylcellulose sodium (ARTIFICIAL TEARS, CMC, OPHTHALMIC) Use in eyes. - albuterol HFA (PROVENTIL HFA, VENTOLIN HFA) 90 mcg/actuation inhaler Inhale 2 Puffs as instructed every 4 hours as needed for wheezing/shortness of breath. - cholecalciferol (VITAMIN D) 1,000 unit tab tablet Take 1 tablet by mouth once daily. - cetirizine (ZYRTEC) 10 mg tablet Take 10 mg by mouth once daily. - omega-3/dha/epa/dpa/fish oil (OMEGA-3 2100 ORAL) Take by mouth. - Orlistat (KUSUM) 60 mg capsule Take 120 mg by mouth twice daily with meals. - POLYETHYLENE GLYCOL 3350 (MIRALAX ORAL) Take by mouth. - aspirin, enteric coated (ASPIRIN, ENTERIC COATED) 81 mg EC tablet Take 81 mg by mouth once daily. - docusate sodium (COLACE) 100 mg capsule Take 300 mg by mouth once daily. Problem List As Of Date 06/17/2024 Noted Resolved Hyperlipidemia [E78.5] 10/26/2015 Gout with manifestations [M10.9] 10/26/2015 Chronic low back pain without sciatica [M54.50,*10/26/2015 Elevated alkaline phosphatase level [R74.8] 11/01/2015 Bilateral leg edema [R60.0] 08/20/2017 Kidney stones [N20.0] 08/20/2017 Chronic insomnia [F51.04] 08/20/2017 Peripheral polyneuropathy (HCC) [G62.9] 08/20/2017 Left flank pain [R10.9] 09/28/2017 11/18/2021 Lung nodules [R91.8] 09/28/2017 Vitamin D deficiency [E55.9] 09/28/2017 Vitamin B12 deficiency [E53.8] 09/28/2017 ULYSSES (generalized anxiety disorder) [F41.1] 09/28/2017 Bacterial sinusitis [J32.9, B96.89] 09/28/2017 07/19/2018 Obesity, Class III, BMI >= 40 [E64.813] (more content not included)... [facility] 06-03-2024 Evaluation note Diagnosis Onset Date Resolution Carotid bruit acute June 03, 2024 8:50am History of TIA (transient ischemic attack) acute June 03, 2024 8:50am History of vitamin D deficiency acute June 03, 2024 8:50am Parkinson's disease acute June 03, 2024 8:50am Polyneuropathy acute May 8:50am [facility] Work Phone: 1(689) 816-273304-15-2025 Evaluation note* Diagnosis Onset Date Resolution Status Admit Date Carotid bruit acute June 03, 2024 8:50am History of TIA (transient ischemic attack) acute June 03 8:50am History of vitamin D deficiency acut e June 03, 2024 8:50am Parkinson's disease acute June 03, 2024 8:50am Polyneuropathy acute May 8:50am Chest pain acute June 20, 2024 1:50pm CHF (congestive heart failure) acute June 20, 2024 1:50pm History of TIA (transient ischemic attack) acute June 20, 2024 1 :50pm Polypharmacy acute June 20 1:50pm Hypertension chronic June 20 1:50pm [facility] Work Phone: 1(576) 957-790004-15-2025 Evaluation note* Diagnosis Onset Date Resolution Status Admit Date Carotid bruit acute June 03, 2024 8:50am History of TIA (transient ischemic attack) acute June 03 8:50am History of vitamin D deficiency acut e June 03, 2024 8:50am Parkinson's disease acute June 03, 2024 8:50am Polyneuropathy acute May 8:50am Chest pain acute June 20, 2024 1:50pm CHF (congestive heart failure) acute June 20, 2024 1:50pm History of TIA (transient ischemic attack) acute June 20, 2024 1 :50pm Polypharmacy acute June 20 1:50pm Hypertension chronic June 20 1:50pm Carotid bruit acute July 15, 2 025 1:32pm History of TIA (transient ischemic attack) acute July 15, 2024 1:32pm History of vitamin D deficiency acut e July 15, 2024 1:32pm Parkinson's disease acute June 202024 1:32pm Polyneuropathy acute July 15, 2024 1:32pm [facility] Work Phone: 1(578) 840-385104-10-2025 Telephone encounter Note* Telephone Encounter - Roberto Willis MA - 05/29/2024 12:07 PM EDT pharmacy electronically requesting refills as follows: Last seen 01/04/24 . Last refill 05/21/23 . Requested Prescriptions Pending Prescriptions Disp Refills Ipratropium Sewell (ATROVENT) 21 mcg (0.03 %) nasal spray [Pharmacy Med Name: Ipratropium Sewell Nasal Solution 0.03 %] 30 mL 3 Sig: USE 1 SPRAY NASALLY TWICE DAILY Please review and advise. Roberto Willis MA [facility]04-10-2025 Miscellaneous Notes* Telephone Encounter - Roberto Willis MA - 05/29/2024 12:07 PM EDT pharmacy electronically requesting refills as follows: Last seen 01/04/24 . Last refill 05/21/23 . Requested Prescriptions Pending Prescriptions Disp Refills Ipratropium Sewell (ATROVENT) 21 mcg (0.03 %) nasal spray [Pharmacy Med Name: Ipratropium Sewell Nasal Solution 0.03 %] 30 mL 3 Sig: USE 1 SPRAY NASALLY TWICE DAILY Please review and advise. Roberto Willis MA [facility] Telephone encounter Note * Telephone Encounter - Whit Mandujano MA - 05/02/2024 1:37 PM EDT pharm requesting refills: Last office visit 01/04/2024. Last refill 02/26/2024. Requested Prescriptions Pending Prescriptions Disp Refills LORazepam (ATIVAN) 0.5 mg [Pharmacy Med Name: LORazepam Oral Tablet 0.5 MG] 60 tablet Sig: TAKE 1 TABLET TWICE DAILY NEEDED FOR UP TO 30 DAYS Please review and advise. Whit Mandujano MA [facility]03-14-2025 Miscellaneous Notes* Telephone Encounter - Whit Mandujano MA - 05/02/2024 1:37 PM EDT pharm requesting refills: Last office visit 01/04/2024. Last refill 02/26/2024. Requested Prescriptions Pending Prescriptions Disp Refills LORazepam (ATIVAN) 0.5 mg [Pharmacy Med Name: LORazepam Oral Tablet 0.5 MG] 60 tablet Sig: TAKE 1 TABLET TWICE DAILY NEEDED FOR UP TO 30 DAYS Please review and advise. Whit Mandujano MA [facility] Telephone encounter Note * Telephone Encounter - Roberto Willis MA - 03/19/2024 7:16 AM EST pharmacy electronically requesting refills as follows: Last seen 01/04/24 . Last refill 01/04/24 . Requested Prescriptions Pending Prescriptions Disp Refills buPROPion SR (WELLBUTRIN SR) 150 mg 12 hr tablet [Pharmacy Med Name: buPROPion HCl ER (SR) Oral Tablet Extended Release 12 Hour 150 MG] 177 tablet 3 Sig: TAKE 1 TABLET EVERY MORNING FOR 3 DAYS, THEN 1 TABLET TWO TIMES A DAY. Please review and advise. Roberto Willis MA [facility]01-29-2025 Miscellaneous Notes* Telephone Encounter - Roberto Willis MA - 03/19/2024 7:16 AM EST pharmacy electronically requesting refills as follows: Last seen 01/04/24 . Last refill 01/04/24 . Requested Prescriptions Pending Prescriptions Disp Refills buPROPion SR (WELLBUTRIN SR) 150 mg 12 hr tablet [Pharmacy Med Name: buPROPion HCl ER (SR) Oral Tablet Extended Release 12 Hour 150 MG] 177 tablet 3 Sig: TAKE 1 TABLET EVERY MORNING FOR 3 DAYS, THEN 1 TABLET TWO TIMES A DAY. Please review and advise. Roberto Willis MA [facility] Telephone encounter Note * Telephone Encounter - Whit Mandujano MA - 03/05/2024 8:18 AM EST pharm requesting refills: Last office visit 01/04/2024. Last refill 12/28/2022. Nov 07/03/2024 Requested Prescriptions Pending Prescriptions Disp Refills allopurinol (ZYLOPRIM) 300 mg tablet [Pharmacy Med Name: Allopurinol Oral Tablet 300 MG] 90 tablet 3 Sig: TAKE 1 TABLET EVERY DAY Please review and advise. Whit Mandujano MA [facility]01-15-2025 Miscellaneous Notes* Telephone Encounter - Whit Mandujano MA - 03/05/2024 8:18 AM EST pharm requesting refills: Last office visit 01/04/2024. Last refill 12/28/2022. Nov 07/03/2024 Requested Prescriptions Pending Prescriptions Disp Refills allopurinol (ZYLOPRIM) 300 mg tablet [Pharmacy Med Name: Allopurinol Oral Tablet 300 MG] 90 tablet 3 Sig: TAKE 1 TABLET EVERY DAY Please review and advise. Whit Mandujano MA documented [facility]Det[facility] Telephone encounter Note * Telephone Encounter - Whit Mandujano MA - 03/05/2024 8:07 AM EST pharm requesting refills: Last office visit 01/04/2024. Last refill 05/10/2023. Requested Prescriptions Pending Prescriptions Disp Refills omeprazole (PRILOSEC) 40 mg capsule [Pharmacy Med Name: Omeprazole Oral Capsule Delayed Release 40 MG] 90 capsule 3 Sig: TAKE 1 CAPSULE EVERY DAY potassium chloride ER (KLOR-CON M10) 10 mEq tablet [Pharmacy Med Name: Potassium Chloride Nkechi ER Oral Tablet Extended Release 10 MEQ] 360 tablet 3 Sig: TAKE 2 TABLETS TWICE A DAY furosemide (LASIX) 40 mg tablet [Pharmacy Med Name: Furosemide Oral Tablet 40 MG] 270 tablet 3 Sig: TAKE 1 AND 1/2 TABLETS TWICE DAILY simvastatin (ZOCOR) 40 mg tablet [Pharmacy Med Name: Simvastatin Oral Tablet 40 MG] 90 tablet 3 Sig: TAKE 1 TABLET AT BEDTIME Please review and advise. Whit Mandujano MA [facility]01-15-2025 Miscellaneous Notes* Telephone Encounter - Whit Mandujano MA - 03/05/2024 8:07 AM EST pharm requesting refills: Last office visit 01/04/2024. Last refill 05/10/2023. Requested Prescriptions Pending Prescriptions Disp Refills omeprazole (PRILOSEC) 40 mg capsule [Pharmacy Med Name: Omeprazole Oral Capsule Delayed Release 40 MG] 90 capsule 3 Sig: TAKE 1 CAPSULE EVERY DAY potassium chloride ER (KLOR-CON M10) 10 mEq tablet [Pharmacy Med Name: Potassium Chloride Nkechi ER Oral Tablet Extended Release 10 MEQ] 360 tablet 3 Sig: TAKE 2 TABLETS TWICE A DAY furosemide (LASIX) 40 mg tablet [Pharmacy Med Name: Furosemide Oral Tablet 40 MG] 270 tablet 3 Sig: TAKE 1 AND 1/2 TABLETS TWICE DAILY simvastatin (ZOCOR) 40 mg tablet [Pharmacy Med Name: Simvastatin Oral Tablet 40 MG] 90 tablet 3 Sig: TAKE 1 TABLET AT BEDTIME Please review and advise. Whit Mandujano MA documented in [facility]Det[facility] Telephone encounter Note * Telephone Encounter - Roberto Willis MA - 02/26/2024 1:09 PM EST pharmacy electronically requesting refills as follows: Last seen 01/04/24 . Last refill 11/20/23 . Requested Prescriptions Pending Prescriptions Disp Refills LORazepam (ATIVAN) 0.5 mg [Pharmacy Med Name: LORazepam Oral Tablet 0.5 MG] 60 tablet Sig: Take 1 tablet by mouth two times a day as needed. Please review and advise. Roberto Willis MA [facility]01-07-2025 Miscellaneous Notes* Telephone Encounter - Roberto Willis MA - 02/26/2024 1:09 PM EST pharmacy electronically requesting refills as follows: Last seen 01/04/24 . Last refill 11/20/23 . Requested Prescriptions Pending Prescriptions Disp Refills LORazepam (ATIVAN) 0.5 mg [Pharmacy Med Name: LORazepam Oral Tablet 0.5 MG] 60 tablet Sig: Take 1 tablet by mouth two times a day as needed. Please review and advise. Roberto Willis MA documented in this encounterDet[facility]12-30-[facility]24 Miscellaneous Notes* Telephone Encounter - Roberto Willis MA - 02/18/2024 9:34 AM EST pharmacy electronically requesting refills as follows: Last seen 01/04/24 . Last refill 04/30/23 . Requested Prescriptions Pending Prescriptions Disp Refills montelukast (SINGULAIR) 10 mg tablet [Pharmacy Med Name: Montelukast Sodium Oral Tablet 10 MG] 90 tablet 3 Sig: TAKE 1 TABLET AT BEDTIME Please review and advise. Roberto Willis MA documented in this encounterDet[facility]12-[facility]24 Telephone encounter Note * Telephone Encounter - Roberto Willis MA - 02/18/2024 9:34 AM EST pharmacy electronically requesting refills as follows: Last seen 01/04/24 . Last refill 04/30/23 . Requested Prescriptions Pending Prescriptions Disp Refills montelukast (SINGULAIR) 10 mg tablet [Pharmacy Med Name: Montelukast Sodium Oral Tablet 10 MG] 90 tablet 3 Sig: TAKE 1 TABLET AT BEDTIME Please review and advise. Roberto Willis MA [facility]11-22-[facility]24 History of Present illness Narrative* Nehal Calle MD - 01/11/2024 2:45 PM EST Images from the original note were not included. . [facility] Note Patient name: Rosalba Abebe PCP: Ally Espinosa DO CC: Fibrotic HP HPI: Rosalba Abebe 73 year old female former [id number] smoker, quitting in 1987 with PMH significant for HTN, hepatic steatosis, asthma previously on immunotherapy for allergies, GERD, HLD, SAM not using CPAP, history of congestive heart failure and hypersensitivity pneumonitis/bird fanciers disease. She has refused to completely eliminate the birds from her environment. She presents today for follow-up of her chest CT. Symptoms consist of dyspnea on exertion and she states she has been coughing more which is dry in nature. She also states she has been having some issues with her allergies with postnasal drip. No wheezing or chest pain. Chest CT shows persistent peripheral fibrotic changes and mosaicism relatively unchanged from her CT in 2021. She has not been ill with any upper respiratory infection nor required hospitalization nor any new medical issues. DATA: Labs: Mild restriction with low diffusion Imaging / Diagnostic Studies: DATE OF EXAM: Nov 12 2023 1:40PM [facility] 0541 - CT CHEST WO IVCON / PROCEDURE REASON: Interstitial pulmonary disease (HCC) CLINICAL HISTORY: Interstitial lung disease. Comparison: CT chest on 11/08/2021 RESULT: Limitations: None. Lines, tubes, and devices: None. Lung parenchyma and airways: The central airways are patent. There are fine reticular opacities in the bilateral lungs predominantly visualized in the peripheral areas, with involvement of immediate subpleural regions. There are multiple scattered groundglass opacities in the bilateral lungs. Traction bronchiectasis is again noted, with some architectural distortion. Questionable honeycombing in the right lower lobe. No mass lesion identified. No suspicious lung nodules. Pleural space: No pleural effusion. No pleural thickening. Lower neck, lymph nodes, and mediastinum: The imaged thyroid gland is normal. There are a few borderline/mildly enlarged mediastinal lymph nodes, without progressive lymphadenopathy. The evaluation of the hilar regions is somewhat limited due to lack of intravenous contrast. No supraclavicular or axillary lymphadenopathy. Heart, pericardium, and thoracic vessels: Stable cardiac chambers, thoracic aorta and central pulmonary arteries. No pleural effusion/thickening. Bones and soft tissues: Sclerotic lesion is again seen in T12 vertebral body. Osteophyte formation with disc space narrowing seen in the spine. No destructive bone lesion. The chest wall soft tissue is within normal limits. Upper abdomen: Limited study through the upper abdomen demonstrates numerous small gallbladder stones. Localizer images: No additional findings. IMPRESSION: Interstitial lung disease. Overall findings not significantly changed. A few borderline or mildly enlarged mediastinal lymph nodes. Gallbladder stones. Review of chest imaging shows fibrosis and mosaic pattern. Not significantly changed since 2021 PAST MEDICAL HISTORY Diagnosis Date Anemia due to vitamin B12 deficiency due to dietary causes Asthma Bird fancier's lung (HCC) Bone pain Chest pain possibly cardiac, continue baby aspirin daily Colon cancer screening 06/2016 cologuard test negative Electrocardiogram abnormal order for nuclear stress test to be done at [facility] Essential hypertension continue meds Fatty liver 11/2015 Fibromyalgia GERD (gastroesophageal reflux disease) take pantoprazole first thing in the morning on an empty stomach, at least 1/2 hour before eating Hyperlipidemia Hypersensitivity pneumonitis (HCC) Insomnia Joint pain Kidney stone change tamsulosin to as needed Left flank pain Migraine consider trial of imitrex after stress test is completed and if it is wnl Mini stroke 2016 Morbid obesity (HCC) Multiple joint pain Multiple lacunar infarcts (HCC) Obesity, unspecified Obstructive sleep apnea syndrome Unable to tolerate positive airway pressure 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 STOPS BREATHING DURING SURGERY. Aspirin Vomiting, Other: See Comments Blood in stool , adverse reaction Bee Venom Protein (* Swelling Cefdinir Diarrhea, GI Upset, Intolerance, Vomiting Cortisone Other: See Comments CAUSES PAIN AND BURNING Darvocet-N 100 [Pro* GI Upset, Vomiting Estrogens Other: See Comments ALL HORMONES, HAVE TRIED MANY. GIVES BREAKTHROUGH BLEEDING Influenza Virus Vac* Unknown Iodinated Contrast * Hives, Vomiting ALL DYES Iodine And Iodide C* Swelling Levaquin [Levofloxa* GI Upset E.E.S. Nsaids (Non-Steroid* Unknown Paxil [Paroxetine H* Other: See Comments Weight gain Spider Venom Swelling Trazodone Intolerance Achiness Venom-Wasp Swelling triamcinolone acetonide (KENALOG) 0.1 % ointment APPLY TO AFFECTED AREA TWICE DAILY NEEDED buPROPion SR (WELLBUTRIN SR) 150 mg 12 hr tablet Take 1 tablet by mouth every morning for 3 days, THEN 1 tablet two times a day. tamsulosin (FLOMAX) 0.4 mg TAKE 1 CAPSULE EVERY DAY fluticasone-salmeterol (ADVAIR, WIXELA) 250-50 mcg/dose inhaler INHALE 1 PUFF INSTRUCTED TWICE DAILY. LORazepam (ATIVAN) 0.5 mg Take 1 tablet by mouth two times a day as needed for up to 90 days. Ibandronate 150 mg tablet TAKE 1 TABLET ONE TIME PER MONTH isosorbide mononitrate ER (IMDUR) 30 mg 24 hr tablet Take 0.5 tablets by mouth once daily. Ipratropium Sewell (ATROVENT) 21 mcg (0.03 %) nasal spray USE 1 SPRAY NASALLY TWICE DAILY simvastatin (ZOCOR) 40 mg tablet take 1 tablet at bedtime omeprazole (PRILOSEC) 40 mg capsule TAKE 1 CAPSULE EVERY DAY furosemide (LASIX) 40 mg tablet TAKE 1 AND 1/2 TABLETS TWICE DAILY potassium chloride ER (KLOR-CON M10) 10 mEq tablet TAKE 2 TABLETS TWICE A DAY montelukast (SINGULAIR) 10 mg tablet take 1 tablet at bedtime sertraline (ZOLOFT) 50 mg tablet take 1 tablet every day allopurinol (ZYLOPRIM) 300 mg tablet take 1 tablet every day Garlic (ODORLESS GARLIC) 300 mg cap pyridoxine, vitamin B6, (VITAMIN B-6) 100 mg tablet hydroxyzine HCl (ATARAX ORAL) Take by mouth. diphenhydramine HCl (BENADRYL ALLERGY ORAL) Take 2 tablets by mouth every 12 hours as needed. carboxymethylcellulose sodium (ARTIFICIAL TEARS, CMC, OPHTHALMIC) Use in eyes. albuterol HFA (PROVENTIL HFA, VENTOLIN HFA) 90 mcg/actuation inhaler Inhale 2 Puffs as instructed every 4 hours as needed for wheezing/shortness of breath. cholecalciferol (VITAMIN D) 1,000 unit tab tablet Take 1 tablet by mouth once daily. guaiFENesin (MUCINEX) 600 mg 12 hr tablet Take 1 tablet by mouth every 12 hours as needed (cough). (Patient taking differently: Take 600 mg by mouth two times a day.) cetirizine (ZYRTEC) 10 mg tablet Take 10 mg by mouth once daily. omega-3/dha/epa/dpa/fish oil (OMEGA-3 2100 ORAL) Take by mouth. Orlistat (KUSUM) 60 mg capsule Take 120 mg by mouth twice daily with meals. POLYETHYLENE GLYCOL 3350 (MIRALAX ORAL) Take by mouth. aspirin, enteric coated (ASPIRIN, ENTERIC COATED) 81 mg EC tablet Take 81 mg by mouth once daily. docusate sodium (COLACE) 100 mg capsule Take 300 mg by mouth once daily. Social History Tobacco Use Smoking status: Former Current packs/day: 0.00 Average packs/day: 1 pack/day for 25.0 years (25.0 ttl pk-yrs) Types: Cigarettes Start date: 02/27/1962 Quit date: 02/27/1987 Years since quittin.8 Smokeless tobacco: Never Tobacco comments: Former smoker; Tobacco reviewed with patient 08/30/2015 Vaping Use Vaping status: Never Used Substance Use Topics Alcohol use: No Comment: Non-drinker Drug use: No Comment: No reported history PMH, Social history, family history and surgical history reviewed and updated in EMR REVIEW OF SYSTEMS: CONSTITUTIONAL: No fevers, chills, nightsweats, unintended weight loss HEENT: Positive nasal congestion/sinus symptoms, allergy problems. CARDIOVASCULAR: No chest pain, palpitations, edema. PULM: See HPI NEURO: No new balance problems, peripheral weakness/paresthesias or numbness of concern. Tremor MUSC-SKEL: No new joint pain, swelling, or erythema. PSY: No concerns regarding depression, anxiety INTEGUMENTARY: No new skin changes PHYSICAL EXAMINATION: BP 164/75 Pulse 75 Temp (Src) 99 (Temporal) Wt 206 lb 6.4 oz (93.6kg) SpO2 97% General Appearance: Age appropriate, NAD. Skin: Skin color, texture, turgor normal, no suspicious rashes or lesions. Head: Normocephalic, no masses, lesions, tenderness or abnormalities. Eyes: Sclera, conjunctiva normal Oropharynx: No oral lesion or thrush. Neck: No JVD, no adenopathy. Lungs: Not labored, fine crackles right base. Heart: RRR, soft systolic murmur. Extremities: No edema, no clubbing. Right upper extremity tremor Assessment/Plan: Bird fancier's lung -No obvious progression of her fibrotic lung disease by imaging -As stated above, patient refuses to completely eliminate birds from her environment -She is not interested in trial of steroids or CellCept -Spirometry at next visit Mild intermittent asthma, uncomplicated -She will continue on current ICS/LABA and encouraged more frequent use of her albuterol -Continue Singulair Class 2 obesity -BMI 37 -Weight loss advised Nehal Calle MD [facility]24 NoteHNO ID: [id number] Author: NEHAL CALLE MD Service: ? Author Type: Physician Type: Progress Notes Filed: 01/11/2024 16:05 Note Text: . [facility] Patient name: Rosalba Abebe PCP: Ally Espinosa DO CC: Fibrotic HP HPI: Rosalba Abebe 73 year old female former [id number] smoker, quitting in 1987 with PMH significant for HTN, hepatic steatosis, asthma previously on immunotherapy for allergies, GERD, HLD, SAM not using CPAP, history of congestive heart failure and hypersensitivity pneumonitis/bird fanciers disease. She has refused to completely eliminate the birds from her environment. She presents today for follow-up of her chest CT. Symptoms consist of dyspnea on exertion and she states she has been coughing more which is dry in nature. She also states she has been having some issues with her allergies with postnasal drip. No wheezing or chest pain. Chest CT shows persistent peripheral fibrotic changes and mosaicism relatively unchanged from her CT in 2021. She has not been ill with any upper respiratory infection nor required hospitalization nor any new medical issues. DATA: Labs: Mild restriction with low diffusion Imaging / Diagnostic Studies: DATE OF EXAM: Nov 12 2023 1:40PM [facility] 0541 - CT CHEST WO IVCON / PROCEDURE REASON: Interstitial pulmonary disease (HCC) CLINICAL HISTORY: Interstitial lung disease. Comparison: CT chest on 11/08/2021 RESULT: Limitations: None. Lines, tubes, and devices: None. Lung parenchyma and airways: The central airways are patent. There are fine reticular opacities in the bilateral lungs predominantly visualized in the peripheral areas, with involvement of immediate subpleural regions. There are multiple scattered groundglass opacities in the bilateral lungs. Traction bronchiectasis is again noted, with some architectural distortion. Questionable honeycombing in the right lower lobe. No mass lesion identified. No suspicious lung nodules. Pleural space: No pleural effusion. No pleural thickening. Lower neck, lymph nodes, and mediastinum: The imaged thyroid gland is normal. There are a few borderline/mildly enlarged mediastinal lymph nodes, without progressive lymphadenopathy. The evaluation of the hilar regions is somewhat limited due to lack of intravenous contrast. No supraclavicular or axillary lymphadenopathy. Heart, pericardium, and thoracic vessels: Stable cardiac chambers, thoracic aorta and central pulmonary arteries. No pleural effusion/thickening. Bones and soft tissues: Sclerotic lesion is again seen in T12 vertebral body. Osteophyte formation with disc space narrowing seen in the spine. No destructive bone lesion. The chest wall soft tissue is within normal limits. Upper abdomen: Limited study through the upper abdomen demonstrates numerous small gallbladder stones. Localizer images: No additional findings. IMPRESSION: Interstitial lung disease. Overall findings not significantly changed. A few borderline or mildly enlarged mediastinal lymph nodes. Gallbladder stones. Review of chest imaging shows fibrosis and mosaic pattern. Not significantly changed since 2021 PAST MEDICAL HISTORY Diagnosis Date Anemia due to vitamin B12 deficiency due to dietary causes Asthma Bird fancier's lung (HCC) Bone pain Chest pain possibly cardiac, continue baby aspirin daily Colon cancer screening 06/2016 cologuard test negative Electrocardiogram abnormal order for nuclear stress test to be done at [facility] Essential hypertension continue meds Fatty liver 11/2015 Fibromyalgia GERD (gastroesophageal reflux disease) take pantoprazole first thing in the morning on an empty stomach, at least 1/2 hour before eating Hyperlipidemia Hypersensitivity pneumonitis (HCC) Insomnia Joint pain Kidney stone change tamsulosin to as needed Left flank pain Migraine consider trial of imitrex after stress test is completed and if it is wnl Mini stroke 2016 Morbid obesity (HCC) Multiple joint pain Multiple lacunar infarcts (HCC) Obesity, unspecified Obstructive sleep apnea syndrome Unable to tolerate positive airway pressure 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 STOPS BREATHING DURING SURGERY. Aspirin Vomiting, Other: See Comments Blood in stool , adverse reaction Bee Venom Protein (* Swelling Cefdinir Diarrhea, GI Upset, Intolerance, Vomiting Cortisone Other: See Comments CAUSES PAIN AND BURNING Darvocet-N 100 [Pro* GI Upset, Vomiting Estrogens Other: See Comments ALL HORMONES, HAVE TRIED MANY. GIVES BREAKTHROUGH BLEEDING Influen (more content not included)...[facility]11-19-2024 Telephone encounter Note* Telephone Encounter - Roberto Willis MA - 01/08/2024 7:32 AM EST pharmacy electronically requesting refills as follows: Last seen 01/04/24 . Last refill 11/27/22 . Requested Prescriptions Pending Prescriptions Disp Refills triamcinolone acetonide (KENALOG) 0.1 % ointment [Pharmacy Med Name: Triamcinolone Acetonide External Ointment 0.1 %] 80 g 11 Sig: APPLY TO AFFECTED AREA TWICE DAILY NEEDED Please review and advise. Roberto Willis MA [facility]11-19-2024 Miscellaneous Notes* Telephone Encounter - Roberto Willis MA - 01/08/2024 7:32 AM EST pharmacy electronically requesting refills as follows: Last seen 01/04/24 . Last refill 11/27/22 . Requested Prescriptions Pending Prescriptions Disp Refills triamcinolone acetonide (KENALOG) 0.1 % ointment [Pharmacy Med Name: Triamcinolone Acetonide External Ointment 0.1 %] 80 g 11 Sig: APPLY TO AFFECTED AREA TWICE DAILY NEEDED Please review and advise. Roberto Willis MA documented in this encounterDet[facility]11-15-2024 NoteHNO ID: [id number] Author: ALLY ESPINOSA, DO Service: ? Author Type: Physician Type: Progress Notes Filed: 01/24/2024 20:15 Note Text: Subjective The history is provided by the patient. Hypertension This is a chronic problem. The current episode started more than 1 year ago. The problem is unchanged. The problem is controlled. Associated symptoms include malaise/fatigue. Pertinent negatives include no blurred vision, chest pain, headaches, palpitations or shortness of breath. She has pain in her left lower back When she stands up her pain is 8/10 She stopped taking oxycodone because it was not helping She fell onto her face, landing on her right forehead, while vacuuming the porch on 10/23/23 She had swelling above her right eyebrow, but that has resolved She is frustrated with her weight, and she feels tired, even when she wakes up in the morning She would like to try wellbutrin for appetite suppression as she did not receive the Rx that was sent in last time she was here ALLERGIES Allergen Reactions Amoxicillin-Pot Cla* Diarrhea, GI Upset Anesthetics - Amide* Other: See Comments BECOMES AGGRESSIVE AND COMBATIVE. STOPS BREATHING DURING SURGERY. Aspirin Vomiting, Other: See Comments Blood in stool , adverse reaction Bee Venom Protein (* Swelling Cefdinir Diarrhea, GI Upset, Intolerance, Vomiting Cortisone Other: See Comments CAUSES PAIN AND BURNING Darvocet-N 100 [Pro* GI Upset, Vomiting Estrogens Other: See Comments ALL HORMONES, HAVE TRIED MANY. GIVES BREAKTHROUGH BLEEDING Influenza Virus Vac* Unknown Iodinated Contrast * Hives, Vomiting ALL DYES Iodine And Iodide C* Swelling Levaquin [Levofloxa* GI Upset E.E.S. Nsaids (Non-Steroid* Unknown Paxil [Paroxetine H* Other: See Comments Weight gain Spider Venom Swelling Trazodone Intolerance Achiness Venom-Wasp Swelling Current Outpatient Medications Medication Sig Dispense Refill tamsulosin (FLOMAX) 0.4 mg TAKE 1 CAPSULE EVERY DAY 90 capsule 3 fluticasone-salmeterol (ADVAIR, WIXELA) 250-50 mcg/dose inhaler INHALE 1 PUFF INSTRUCTED TWICE DAILY. 180 Each 3 LORazepam (ATIVAN) 0.5 mg Take 1 tablet by mouth two times a day as needed for up to 90 days. 180 tablet 0 Ibandronate 150 mg tablet TAKE 1 TABLET ONE TIME PER MONTH 3 tablet 3 isosorbide mononitrate ER (IMDUR) 30 mg 24 hr tablet Take 0.5 tablets by mouth once daily. 90 tablet 3 Ipratropium Sewell (ATROVENT) 21 mcg (0.03 %) nasal spray USE 1 SPRAY NASALLY TWICE DAILY 30 mL 3 simvastatin (ZOCOR) 40 mg tablet take 1 tablet at bedtime 90 tablet 3 omeprazole (PRILOSEC) 40 mg capsule TAKE 1 CAPSULE EVERY DAY 90 capsule 3 furosemide (LASIX) 40 mg tablet TAKE 1 AND 1/2 TABLETS TWICE DAILY 270 tablet 3 potassium chloride ER (KLOR-CON M10) 10 mEq tablet TAKE 2 TABLETS TWICE A DAY 360 tablet 3 montelukast (SINGULAIR) 10 mg tablet take 1 tablet at bedtime 90 tablet 3 sertraline (ZOLOFT) 50 mg tablet take 1 tablet every day 90 tablet 3 allopurinol (ZYLOPRIM) 300 mg tablet take 1 tablet every day 90 tablet 10 triamcinolone acetonide (KENALOG) 0.1 % ointment APPLY TO AFFECTED AREA TWICE DAILY NEEDED 80 g 10 Garlic (ODORLESS GARLIC) 300 mg cap pyridoxine, vitamin B6, (VITAMIN B-6) 100 mg tablet hydroxyzine HCl (ATARAX ORAL) Take by mouth. diphenhydramine HCl (BENADRYL ALLERGY ORAL) Take 2 tablets by mouth every 12 hours as needed. carboxymethylcellulose sodium (ARTIFICIAL TEARS, CMC, OPHTHALMIC) Use in eyes. albuterol HFA (PROVENTIL HFA, VENTOLIN HFA) 90 mcg/actuation inhaler Inhale 2 Puffs as instructed every 4 hours as needed for wheezing/shortness of breath. 1 Inhaler 1 cholecalciferol (VITAMIN D) 1,000 unit tab tablet Take 1 tablet by mouth once daily. guaiFENesin (MUCINEX) 600 mg 12 hr tablet Take 1 tablet by mouth every 12 hours as needed (cough). (Patient taking differently: Take 600 mg by mouth two times a day.) 30 tablet 0 cetirizine (ZYRTEC) 10 mg tablet Take 10 mg by mouth once daily. omega-3/dha/epa/dpa/fish oil (OMEGA-3 2100 ORAL) Take by mouth. Orlistat (KUSUM) 60 mg capsule Take 120 mg by mouth twice daily with meals. POLYETHYLENE GLYCOL 3350 (MIRALAX ORAL) Take by mouth. aspirin, enteric coated (ASPIRIN, ENTERIC COATED) 81 mg EC tablet Take 81 mg by mouth once daily. docusate sodium (COLACE) 100 mg capsule Take 300 mg by mouth once daily. buPROPion SR (WELLBUTRIN SR) 150 mg 12 hr tablet Take 1 tablet by mouth every morning for 3 days, THEN 1 tablet two times a day for 27 days. 57 tablet 0 pectin/vit B6/mins 4/c.vinegar (APPLE CIDER VINEGAR COMPLEX ORAL) (Patient not taking: Reported on 01/04/2024) Deandra, Zingiber officinalis, (DEANDRA EXTRACT) 250 mg cap Take 450 mg by mouth once daily. (Patient not taking: Reported on 01/04/2024) Lactobacillus acidophilus (PROBIOTIC) 10 billion cell cap Take by mouth. Prebiotic (Patient not taking: Reported on 01/04/2024) No current facility-administered medications (more content not included)...[facility]11-15-2024 History of Present illness Narrative* Ally Espinosa - 01/04/2024 2:25 PM EST Subjective The history is provided by the patient. Hypertension This is a chronic problem. The current episode started more than 1 year ago. The problem is unchanged. The problem is controlled. Associated symptoms include malaise/fatigue. Pertinent negatives include no blurred vision, chest pain, headaches, palpitations or shortness of breath. She has pain in her left lower back When she stands up her pain is 8/10 She stopped taking oxycodone because it was not helping She fell onto her face, landing on her right forehead, while vacuuming the porch on 10/23/23 She had swelling above her right eyebrow, but that has resolved She is frustrated with her weight, and she feels tired, even when she wakes up in the morning She would like to try wellbutrin for appetite suppression as she did not receive the Rx that was sent in last time she was here ALLERGIES Allergen Reactions Amoxicillin-Pot Cla* Diarrhea, GI Upset Anesthetics - Amide* Other: See Comments BECOMES AGGRESSIVE AND COMBATIVE. STOPS BREATHING DURING SURGERY. Aspirin Vomiting, Other: See Comments Blood in stool , adverse reaction Bee Venom Protein (* Swelling Cefdinir Diarrhea, GI Upset, Intolerance, Vomiting Cortisone Other: See Comments CAUSES PAIN AND BURNING Darvocet-N 100 [Pro* GI Upset, Vomiting Estrogens Other: See Comments ALL HORMONES, HAVE TRIED MANY. GIVES BREAKTHROUGH BLEEDING Influenza Virus Vac* Unknown Iodinated Contrast * Hives, Vomiting ALL DYES Iodine And Iodide C* Swelling Levaquin [Levofloxa* GI Upset E.E.S. Nsaids (Non-Steroid* Unknown Paxil [Paroxetine H* Other: See Comments Weight gain Spider Venom Swelling Trazodone Intolerance Achiness Venom-Wasp Swelling Current Outpatient Medications Medication Sig Dispense Refill tamsulosin (FLOMAX) 0.4 mg TAKE 1 CAPSULE EVERY DAY 90 capsule 3 fluticasone-salmeterol (ADVAIR, WIXELA) 250-50 mcg/dose inhaler INHALE 1 PUFF INSTRUCTED TWICE DAILY. 180 Each 3 LORazepam (ATIVAN) 0.5 mg Take 1 tablet by mouth two times a day as needed for up to 90 days. 180 tablet 0 Ibandronate 150 mg tablet TAKE 1 TABLET ONE TIME PER MONTH 3 tablet 3 isosorbide mononitrate ER (IMDUR) 30 mg 24 hr tablet Take 0.5 tablets by mouth once daily. 90 tablet 3 Ipratropium Sewell (ATROVENT) 21 mcg (0.03 %) nasal spray USE 1 SPRAY NASALLY TWICE DAILY 30 mL 3 simvastatin (ZOCOR) 40 mg tablet take 1 tablet at bedtime 90 tablet 3 omeprazole (PRILOSEC) 40 mg capsule TAKE 1 CAPSULE EVERY DAY 90 capsule 3 furosemide (LASIX) 40 mg tablet TAKE 1 AND 1/2 TABLETS TWICE DAILY 270 tablet 3 potassium chloride ER (KLOR-CON M10) 10 mEq tablet TAKE 2 TABLETS TWICE A DAY 360 tablet 3 montelukast (SINGULAIR) 10 mg tablet take 1 tablet at bedtime 90 tablet 3 sertraline (ZOLOFT) 50 mg tablet take 1 tablet every day 90 tablet 3 allopurinol (ZYLOPRIM) 300 mg tablet take 1 tablet every day 90 tablet 10 triamcinolone acetonide (KENALOG) 0.1 % ointment APPLY TO AFFECTED AREA TWICE DAILY NEEDED 80 g 10 Garlic (ODORLESS GARLIC) 300 mg cap pyridoxine, vitamin B6, (VITAMIN B-6) 100 mg tablet hydroxyzine HCl (ATARAX ORAL) Take by mouth. diphenhydramine HCl (BENADRYL ALLERGY ORAL) Take 2 tablets by mouth every 12 hours as needed. carboxymethylcellulose sodium (ARTIFICIAL TEARS, CMC, OPHTHALMIC) Use in eyes. albuterol HFA (PROVENTIL HFA, VENTOLIN HFA) 90 mcg/actuation inhaler Inhale 2 Puffs as instructed every 4 hours as needed for wheezing/shortness of breath. 1 Inhaler 1 cholecalciferol (VITAMIN D) 1,000 unit tab tablet Take 1 tablet by mouth once daily. guaiFENesin (MUCINEX) 600 mg 12 hr tablet Take 1 tablet by mouth every 12 hours as needed (cough). (Patient taking differently: Take 600 mg by mouth two times a day.) 30 tablet 0 cetirizine (ZYRTEC) 10 mg tablet Take 10 mg by mouth once daily. omega-3/dha/epa/dpa/fish oil (OMEGA-3 2100 ORAL) Take by mouth. Orlistat (KUSUM) 60 mg capsule Take 120 mg by mouth twice daily with meals. POLYETHYLENE GLYCOL 3350 (MIRALAX ORAL) Take by mouth. aspirin, enteric coated (ASPIRIN, ENTERIC COATED) 81 mg EC tablet Take 81 mg by mouth once daily. docusate sodium (COLACE) 100 mg capsule Take 300 mg by mouth once daily. buPROPion SR (WELLBUTRIN SR) 150 mg 12 hr tablet Take 1 tablet by mouth every morning for 3 days, THEN 1 tablet two times a day for 27 days. 57 tablet 0 pectin/vit B6/mins 4/c.vinegar (APPLE CIDER VINEGAR COMPLEX ORAL) (Patient not taking: Reported on 01/04/2024) Deandra, Zingiber officinalis, (DEANDRA EXTRACT) 250 mg cap Take 450 mg by mouth once daily. (Patientnot taking: Reported on 01/04/2024) Lactobacillus acidophilus (PROBIOTIC) 10 billion cell cap Take by mouth. Prebiotic (Patient not taking: Reported on 01/04/2024) No current facility-administered medications for this visit. ACTIVE PROBLEM LIST Hyperlipidemia Gout With Manifestations Chronic Low Back Pain Without Sciatica Elevated Alkaline Phosphatase Level Bilateral Leg Edema Kidney Stones Chronic Insomnia Peripheral Polyneuropathy Lung Nodules Vitamin D Deficiency Vitamin B12 Deficiency [place] (Generalized Anxiety Disorder) Status Post Total Left Knee Replacement Status Post Total Right Knee Replacement Lumbar Degenerative Disc Disease Spinal Stenosis of Lumbar Region With Neurogenic Claudication Paget's Disease of Bone Diverticulitis Gallstones Compression Fracture of Body of Thoracic Vertebra (Hcc) Primary Osteoarthritis Involving Multiple Joints Seasonal Allergies Dermatitis Mild Intermittent Asthma, Uncomplicated Hypertension, Essential Nonrheumatic Aortic Valve Stenosis Nonrheumatic Mitral Valve Regurgitation Gerd With Esophagitis Pulmonary Fibrosis (Hcc) Nocturnal Hypoxia Chronic Diastolic Chf (Congestive Heart Failure) (Hcc) Hypertensive Heart Disease With Chronic Diastolic Congestive Heart Failure ([facility]) Tremors of Nervous System Obesity, Class I, Bmi 30-34.9 Bird Fancier'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 ([facility]) Social History Tobacco Use Smoking status: Former Current packs/day: 0.00 Average packs/day: 1 pack/day for 25.0 years (25.0 ttl pk-yrs) Types: Cigarettes Start date: 02/27/1962 Quit date: 02/27/1987 Years since quittin.8 Smokeless tobacco: Never Tobacco comments: Former smoker; Tobacco reviewed with patient 08/30/2015 Vaping Use Vaping status: Never Used Substance Use Topics Alcohol use: No Comment: Non-drinker Drug use: No Comment: No reported history Family History Problem Relation Age of Onset Prostate Cancer Father other (Uterine cancer) Father other (Myocardial infarction) Father Prostate Cancer Paternal Grandmother Prostate Cancer Paternal Uncle Diabetes Other other (Neck cancer) Brother Reviewed past medical history, family history and surgeries. All medications and supplements were reviewed with the patient. Review of Systems Constitutional: Positive for malaise/fatigue. Negative for chills, diaphoresis, fever and weight loss. HENT: Negative for ear pain and hearing loss. Eyes: Negative for blurred vision and double vision. Respiratory: Negative for cough and shortness of breath. Cardiovascular: Negative for chest pain, palpitations and leg swelling. Gastrointestinal: Negative for constipation, diarrhea and heartburn. Genitourinary: Negative for dysuria and frequency. Musculoskeletal: Positive for back pain. Negative for falls, joint pain and myalgias. Skin: Negative for itching and rash. Neurological: Negative for dizziness, weakness and headaches. Endo/Heme/Allergies: Does not bruise/bleed easily. Psychiatric/Behavioral: Negative for depression and substance abuse. The patient does not have insomnia. Objective BP 112/68 Pulse 80 Temp 36.7 C (98 F) Resp 16 Ht 158.8 cm (5' 2.5) Wt 90.7 kg (200 lb) SpO2 96% BMI 36.00 kg/m Physical Exam Constitutional: Appearance: Normal appearance. She is obese. HENT: Head: Normocephalic and atraumatic. Nose: Nose normal. Mouth/Throat: Mouth: Mucous membranes are moist. Dentition: Normal dentition. Eyes: General: Lids are normal. Extraocular Movements: Extraocular movements intact. Conjunctiva/sclera: Conjunctivae normal. Pupils: Pupils are equal, round, and reactive to light. Neck: Thyroid: No thyroid mass or thyromegaly. Vascular: No carotid bruit. Trachea: Phonation normal. Cardiovascular: Rate and Rhythm: Normal rate and regular rhythm. Heart sounds: Normal heart sounds. No murmur heard. No friction rub. No gallop. Pulmonary: Effort: Pulmonary effort is normal. Breath sounds: Normal breath sounds. No wheezing or rales. Abdominal: General: Bowel sounds are normal. There is no distension. Palpations: Abdomen is soft. There is no mass. Tenderness: There is no abdominal tenderness. Musculoskeletal: General: No swelling or tenderness. Normal range of motion. Cervical back: Normal range of motion and neck supple. No edema. Lymphadenopathy: Cervical: No cervical adenopathy. Skin: General: Skin is warm and dry. Findings: Bruising (over right forehead) present. No erythema or rash. Nails: There is no clubbing. Neurological: Mental Status: She is alert and oriented to person, place, and time. Cranial Nerves: No cranial nerve deficit. Motor: Motor function is intact. Coordination: Coordination normal. Gait: Gait abnormal (Walks with cane). Psychiatric: Attention and Perception: Attention normal. Mood and Affect: Mood and affect normal. Speech: Speech normal. Behavior: Behavior normal. Behavior is cooperative. Thought Content: Thought content normal. Cognition and Memory: Cognition and memory normal. Judgment: Judgment normal. ASSESSMENT/PLAN: 1. Hypertension, essential - ICD9: 401.9, ICD10: I10 (primary diagnosis) - Controlled - Continue current medications - Recommend home blood pressure monitoring, to bring results to next visit - Encouraged sodium restriction, DASH or Mediterranean diet - Recommend regular aerobic exercise - COMPREHENSIVE METABOLIC PANEL - LIPID PANEL BASIC - COMPLETE BLOOD COUNT 2. Gout with manifestations - ICD9: 274.89, ICD10: M10.9 - URIC ACID 3. Obesity, Class I, BMI 30-34.9 - ICD9: 278.00, ICD10: E66.811 - THYROID STIMULATING HORMONE - BUPROPION HCL SR 150 MG TABLET,12 HR SUSTAINED-RELEASE Ally Espinosa DO New Medication(s): wellbutrin; Discussed use, dose and side effects; Patient expresses understanding. [facility] Telephone encounter Note * Telephone Encounter - Whit Mandujano MA - 12/05/2023 7:27 AM EDT pharm requesting refills: Last office visit 06/08/2023. Last refill 12/04/2022 nov 12/10/2023 Requested Prescriptions Pending Prescriptions Disp Refills tamsulosin (FLOMAX) 0.4 mg [Pharmacy Med Name: Tamsulosin HCl Oral Capsule 0.4 MG] 90 capsule 3 Sig: TAKE 1 CAPSULE EVERY DAY Please review and advise. Whit Mandujano MA [facility]10-16-2024 Miscellaneous Notes* Telephone Encounter - Whit Mandujano MA - 12/05/2023 7:27 AM EDT pharm requesting refills: Last office visit 06/08/2023. Last refill 12/04/2022 nov 12/10/2023 Requested Prescriptions Pending Prescriptions Disp Refills tamsulosin (FLOMAX) 0.4 mg [Pharmacy Med Name: Tamsulosin HCl Oral Capsule 0.4 MG] 90 capsule 3 Sig: TAKE 1 CAPSULE EVERY DAY Please review and advise. Whit Mandujano MA documented in this encounterDetw[facility]10-01-2024 Telephone encounter Note * Telephone Encounter - Mary Grier Student - 11/20/2023 11:27 AM EDT Pharmacy requesting refills as follows: Last office visit: 06/08/23 Last refill: 10/12/23 Requested Prescriptions Pending Prescriptions Disp Refills LORazepam (ATIVAN) 0.5 mg [Pharmacy Med Name: LORazepam Oral Tablet 0.5 MG] 60 tablet Sig: Take 1 tablet by mouth two times a day as needed for up to 30 days. Please review and advise. Mino Yoon [facility]10-01-2024 Miscellaneous Notes* Telephone Encounter - Mary Grier Student - 11/20/2023 11:27 AM EDT Pharmacy requesting refills as follows: Last office visit: 06/08/23 Last refill: 10/12/23 Requested Prescriptions Pending Prescriptions Disp Refills LORazepam (ATIVAN) 0.5 mg [Pharmacy Med Name: LORazepam Oral Tablet 0.5 MG] 60 tablet Sig: Take 1 tablet by mouth two times a day as needed for up to 30 days. Please review and advise. Mino Yoon documented in this encounterDetwiler [facility]09-23-2024 History of Present illness Narrative* Ally Ricks RT(R) - 11/12/2023 1:00 PM EDT Radiology Service Progress Note PATIENT NAME: Rosalba Abebe DATE OF SERVICE: November 12, 2023 TIME: 4:07 PM PATIENT IDENTITY VERIFICATION COMPLETED USING TWO (2) IDENTIFIERS: Name and Date of confirmedby patient verbally. FALL SCREENING: Has the patient had 2 falls in the last year or 1 fall with injury or currently using an Ambulatory Assistive Device (Walker, Cane, Wheelchair, Crutches, etc.)? No PATIENT GENDER DATA: Female. status: : No status: NO. PATIENT RELEVANT IMPLANT DATA REVIEWED: Yes PATIENT PRESENTS WITH AN IMPLANTABLE OR ATTACHED SOUND CUTTER: No RADIOLOGY DEPARTMENT: CT; Exam(s) Completed: Chest PERIPHERAL IV DATA: Not applicable SIGNED BY: RT Liza(R) November 12, 2023 4:07 PM documented in this encounterDetwiler [facility]09-23-2024 NoteHNO ID: [id number] Author: ALLY RICKS RT(Maria L) Service: ? Author Type: Product Representative Type: Progress Notes Filed: 11/12/2023 16:07 Note Text: Radiology Service Progress Note PATIENT NAME: Rosalba Abebe DATE OF SERVICE: November 12, 2023 TIME: 4:07 PM PATIENT IDENTITY VERIFICATION COMPLETED USING TWO (2) IDENTIFIERS: Name and Date of confirmed by patient verbally. FALL SCREENING: Has the patient had 2 falls in the last year or 1 fall with injury or currently using an Ambulatory Assistive Device (Walker, Cane, Wheelchair, Crutches, etc.)? No PATIENT GENDER DATA: Female. status: : No status: NO. PATIENT RELEVANT IMPLANT DATA REVIEWED: Yes PATIENT PRESENTS WITH AN IMPLANTABLE OR ATTACHED SOUND CUTTER: No RADIOLOGY DEPARTMENT: CT; Exam(s) Completed: Chest PERIPHERAL IV DATA: Not applicable SIGNED BY: RT Liza(R) November 12, 2023 4:07 [facility]08-30-2024 Telephone encounter Note* Telephone Encounter - Kaylah Lara LPN - 10/19/2023 12:31 PM EDT DC orders, oximetry results and visit notes faxed. Kaylah Lara LPN [facility]08-30-2024 Miscellaneous Notes* Telephone Encounter - Kaylah Lara LPN - 10/19/2023 12:31 PM EDT DC orders, oximetry results and visit notes faxed. Kaylah Lara LPN * Telephone Encounter - Stefanie Lewis RN - 10/19/2023 12:22 PM EDT Rosalba called, verified name and date of . When she saw Dr. Calle on 06/21/23, she discontinued her portable oxygen, but [facility] never received the order. Could the office please fax the order [phone]. If you have any questions for [facility], they can be reached at [phone]. Stefanie Lewis RN October 19, 2023 12:24 PM documented in this encounterDetwiler [facility]08-30-2024 Telephone encounter Note * Telephone Encounter - Stefanie Lewis RN - 10/19/2023 12:22 PM EDT Rosalba called, verified name and date of . When she saw Dr. Calle on 06/21/23, she discontinued her portable oxygen, but [facility] never received the order. Could the office please fax the order [phone]. If you have any questions for [facility], they can be reached at [phone]. Stefanie Lewis RN October 19, 2023 12:24 PM [facility]08-23-[facility] Telephone encounter Note* Telephone Encounter - Whit Mandujano MA - 10/12/2023 2:46 PM EDT pharm requesting refills: Last office visit 06/08/2023. Last refill 01/16/2022.12/10/2023 Requested Prescriptions Pending Prescriptions Disp Refills LORazepam (ATIVAN) 0.5 mg [Pharmacy Med Name: LORAZEPAM 0.5 MG Tablet] 60 tablet Sig: Take 1 tablet by mouth two times a day as needed for up to 30 days. Please review and advise. Whit Mandujano MA [facility]08-23-[facility]24 Miscellaneous Notes* Telephone Encounter - Whit Mandujano MA - 10/12/2023 2:46 PM EDT pharm requesting refills: Last office visit 06/08/2023. Last refill 01/16/2022.12/10/2023 Requested Prescriptions Pending Prescriptions Disp Refills LORazepam (ATIVAN) 0.5 mg [Pharmacy Med Name: LORAZEPAM 0.5 MG Tablet] 60 tablet Sig: Take 1 tablet by mouth two times a day as needed for up to 30 days. Please review and advise. Whit Mandujano MA documented in this encounterDetwiler [facility]08-19-2024 Telephone encounter Note * Telephone Encounter - Lynette Rivas MA - 10/08/2023 7:37 AM EDT ----- Message from Whit Low MA sent at 07/06/2023 11:45 AM EDT ----- Remind pt. Time to recheck vitamin d. Whit Mandujano MA [facility]08-19-2024 Miscellaneous Notes* Telephone Encounter - Lynette Rivas MA - 10/08/2023 7:37 AM EDT ----- Message from Whit Low MA sent at 07/06/2023 11:45 AM EDT ----- Remind pt. Time to recheck vitamin d. Whit Mandujano MA documented in this encounterDetwiler [facility]07-22-2024 Telephone encounter Note * Telephone Encounter - Roberto Willis MA - 09/10/2023 4:20 PM EDT pharmacy faxes requesting refills as follows: Last seen 06/08/23 . Last refill 08/13/23 . Requested Prescriptions Pending Prescriptions Disp Refills LORazepam (ATIVAN) 0.5 mg 60 tablet 0 Sig: Take 1 tablet by mouth two times a day as needed for up to 30 days. Please review and advise. Roberto Willis MA [facility]07-22-2024 Miscellaneous Notes* Telephone Encounter - Roberto Willis MA - 09/10/2023 4:20 PM EDT pharmacy faxes requesting refills as follows: Last seen 06/08/23 . Last refill 08/13/23 . Requested Prescriptions Pending Prescriptions Disp Refills LORazepam (ATIVAN) 0.5 mg 60 tablet 0 Sig: Take 1 tablet by mouth two times a day as needed for up to 30 days. Please review and advise. Roberto Willis MA documented in this encounterDetwiler [facility]06-24-2024 Telephone encounter Note * Telephone Encounter - Whit Mandujano MA - 08/13/2023 8:39 AM EDT Patient requesting refills: Last office visit 06/08/2023. Last refill oxy last filled 06/22/2023 lorazepam last filled 07/03/2023 nov 12/10/2023 Requested Prescriptions Pending Prescriptions Disp Refills oxyCODONE-acetaminophen (PERCOCET) 5-325 mg tablet 120 tablet 0 Sig: Take 1 tablet by mouth every 6 hours as needed for pain for up to 90 days. LORazepam (ATIVAN) 0.5 mg 60 tablet 0 Please review and advise. Whit Mandujano MA [facility]06-24-[facility]24 Miscellaneous Notes* Telephone Encounter - Whit Mandujano MA - 08/13/2023 8:39 AM EDT Patient requesting refills: Last office visit 06/08/2023. Last refill oxy last filled 06/22/2023 lorazepam last filled 07/03/2023 nov 12/10/2023 Requested Prescriptions Pending Prescriptions Disp Refills oxyCODONE-acetaminophen (PERCOCET) 5-325 mg tablet 120 tablet 0 Sig: Take 1 tablet by mouth every 6 hours as needed for pain for up to 90 days. LORazepam (ATIVAN) 0.5 mg 60 tablet 0 Please review and advise. Whit Mandujano MA documented in this encounterDetwiler [facility]06-10-2024 Telephone encounter Note * Telephone Encounter - Lynette Rivas MA - 07/30/2023 8:56 AM EDT Pharmacy requesting refills as follows: Last Office Visit 06/08/23 12/10/23. Last Refill 05/21/23. Requested Prescriptions Pending Prescriptions Disp Refills Ibandronate 150 mg tablet [Pharmacy Med Name: IBANDRONATE SODIUM 150 MG Tablet] 3 tablet 3 Sig: TAKE 1 TABLET ONE TIME PER MONTH Please review and advise. Lynette Rivas MA [facility]06-10-2024 Miscellaneous Notes* Telephone Encounter - Lynette Rivas MA - 07/30/2023 8:56 AM EDT Pharmacy requesting refills as follows: Last Office Visit 06/08/23 12/10/23. Last Refill 05/21/23. Requested Prescriptions Pending Prescriptions Disp Refills Ibandronate 150 mg tablet [Pharmacy Med Name: IBANDRONATE SODIUM 150 MG Tablet] 3 tablet 3 Sig: TAKE 1 TABLET ONE TIME PER MONTH Please review and advise. Lynette Rivas MA documented in this encounterDetwiler [facility]06-10-2024 Telephone encounter Note * Telephone Encounter - Lynette Rivas MA - 07/30/2023 8:54 AM EDT Pharmacy requesting refills as follows: Last Office Visit 06/08/23 12/10/23. Last Refill 07/03/23. Requested Prescriptions Pending Prescriptions Disp Refills LORazepam (ATIVAN) 0.5 mg [Pharmacy Med Name: LORAZEPAM 0.5 MG Tablet] 60 tablet Sig: TAKE 1 TABLET TWICE DAILY NEEDED FOR UP TO 30 DAYS Please review and advise. Lynette Rivas MA [facility]06-10-2024 Miscellaneous Notes* Telephone Encounter - Lynette Rivas MA - 07/30/2023 8:54 AM EDT Pharmacy requesting refills as follows: Last Office Visit 06/08/23 12/10/23. Last Refill 07/03/23. Requested Prescriptions Pending Prescriptions Disp Refills LORazepam (ATIVAN) 0.5 mg [Pharmacy Med Name: LORAZEPAM 0.5 MG Tablet] 60 tablet Sig: TAKE 1 TABLET TWICE DAILY NEEDED FOR UP TO 30 DAYS Please review and advise. Lynette Rivas MA documented in this encounterDetwiler [facility]06-03-2024 Telephone encounter Note * Telephone Encounter - Roberto Willis MA - 07/23/2023 2:53 PM EDT Patient left message requesting neurology referral be faxed to [facility] [phone]. This has been completed. Roberto Willis MA [facility]06-03-2024 Miscellaneous Notes* Telephone Encounter - Roberto Willis MA - 07/23/2023 2:53 PM EDT Patient left message requesting neurology referral be faxed to [facility] [phone]. This has been completed. Roberto Willis MA documented in this encounterDetwiler [facility]05-17-2024 Telephone encounter Note * Telephone Encounter - Whit Mandujano MA - 07/06/2023 11:44 AM EDT Remind placed. Whit Mandujano MA Lm on pt. Vm with all information. [facility] Miscellaneous Notes* Telephone Encounter - Whit Mandujano MA - 07/06/2023 11:44 AM EDT Remind placed. Whit Mandujano MA Lm on pt. Vm with all information. * Telephone Encounter - Ally Espinosa DO - 07/06/2023 10:57 AM EDT Please have pt take 2000 international unit(s) vitamin d daily and we will recheck in 3 months Ally Espinosa DO * Telephone Encounter - Roberto Willis MA - 07/06/2023 10:10 AM EDT Patient left message stating yes she is still taking the vitamin D every day. Please advise. Roberto Willis MA * Telephone Encounter - Lynette Rivas MA - 07/05/2023 3:50 PM EDT Left a message for patient to call back and let us know Lynette Rivas MA * Telephone Encounter - Ally Espinosa DO - 07/05/2023 1:47 PM EDT Please call pt - blood work shows low vitamin d.. Is she taking vitamin d 1000 international unit(s) daily? Ally Espinosa DO documented in this encounterDetwiler [facility]05-17-2024 Telephone encounter Note * Telephone Encounter - Ally Espinosa DO - 07/06/2023 10:57 AM EDT Please have pt take 2000 international unit(s) vitamin d daily and we will recheck in 3 months Ally Espinosa DO [facility]05-17-[facility] Telephone encounter Note* Telephone Encounter - Roberto Willis MA - 07/06/2023 10:10 AM EDT Patient left message stating yes she is still taking the vitamin D every day. Please advise. Roberto Willis MA [facility]05-16-2024 Telephone encounter Note* Telephone Encounter - Lynette Rivas MA - 07/05/2023 3:50 PM EDT Left a message for patient to call back and let us know Lynette Rivas MA [facility] Telephone encounter Note* Telephone Encounter - Roberto Willis MA - 07/05/2023 3:31 PM EDT Patient left message stating the bupropion is not doing anything for her. Please advise. Roberto Willis MA [facility]05-16-2024 Miscellaneous Notes* Telephone Encounter - Roberto Willis MA - 07/05/2023 3:31 PM EDT Patient left message stating the bupropion is not doing anything for her. Please advise. Roberto Willis MA documented in [facility] Telephone encounter Note * Telephone Encounter - Ally Espinosa DO - 07/05/2023 1:47 PM EDT Please call pt - blood work shows low vitamin d.. Is she taking vitamin d 1000 international unit(s) daily? Ally Espinosa DO [facility]05-14-2024 Telephone encounter Note* Telephone Encounter - Whit Mandujano MA - 07/03/2023 3:09 PM EDT Patient requesting refills: Last office visit 06/08/2923. Last refill was sent in today already . Requested Prescriptions Pending Prescriptions Disp Refills LORazepam (ATIVAN) 0.5 mg 60 tablet 0 Please review and advise. Whit Mandujano MA [facility]05-14-2024 Miscellaneous Notes* Telephone Encounter - Whit Mandujano MA - 07/03/2023 3:09 PM EDT Patient requesting refills: Last office visit 06/08/2923. Last refill was sent in today already . Requested Prescriptions Pending Prescriptions Disp Refills LORazepam (ATIVAN) 0.5 mg 60 tablet 0 Please review and advise. Whit Mandujano MA documented in this encounterDet[facility] Telephone encounter Note * Telephone Encounter - Roberto Willis MA - 07/03/2023 2:17 PM EDT pharmacy electronically requesting refills as follows: Last seen 06/08/23 . Last refill 05/21/23 . Requested Prescriptions Pending Prescriptions Disp Refills LORazepam (ATIVAN) 0.5 mg [Pharmacy Med Name: LORAZEPAM 0.5 MG Tablet] 60 tablet Sig: TAKE 1 TABLET TWICE DAILY NEEDED FOR UP TO 30 DAYS Please review and advise. Roberto Willis MA [facility]05-14-2024 Miscellaneous Notes* Telephone Encounter - Roberto Willis MA - 07/03/2023 2:17 PM EDT pharmacy electronically requesting refills as follows: Last seen 06/08/23 . Last refill 05/21/23 . Requested Prescriptions Pending Prescriptions Disp Refills LORazepam (ATIVAN) 0.5 mg [Pharmacy Med Name: LORAZEPAM 0.5 MG Tablet] 60 tablet Sig: TAKE 1 TABLET TWICE DAILY NEEDED FOR UP TO 30 DAYS Please review and advise. Roberto Willis MA documented in this encounterDet[facility]24 Telephone encounter Note * Telephone Encounter - Tamara Ames LPN - 06/22/2023 10:37 AM EDT Pt electronically requesting refills as follows: Last Office Visit: 06/08/2023 Last Refill: 04/27/2023 Next Office Visit: 12/10/2023 Requested Prescriptions Pending Prescriptions Disp Refills oxyCODONE-acetaminophen (PERCOCET) 5-325 mg tablet 120 tablet 0 Sig: Take 1 tablet by mouth every 6 hours as needed for pain for up to 90 days. Please review and advise. Tamara Ames LPN [facility]05-03-2024 Miscellaneous Notes* Telephone Encounter - Tamara Ames LPN - 06/22/2023 10:37 AM EDT Pt electronically requesting refills as follows: Last Office Visit: 06/08/2023 Last Refill: 04/27/2023 Next Office Visit: 12/10/2023 Requested Prescriptions Pending Prescriptions Disp Refills oxyCODONE-acetaminophen (PERCOCET) 5-325 mg tablet 120 tablet 0 Sig: Take 1 tablet by mouth every 6 hours as needed for pain for up to 90 days. Please review and advise. Tamara Ames LPN documented in this encounterDet[facility]05-[facility]24 History of Present illness Narrative* Nehal Calle MD - 06/21/2023 2:45 PM EDT Images from the original note were not included. . [facility] Note Patient name: Rosalba Abebe PCP: Ally Espinosa DO CC: Follow-up lung disease HPI: Rosalba Abebe 73 year old female former 25 pack year smoker quitting in 1987 with PMH significant for HTN, hepatic steatosis, asthma, allergies on immunotherapy, GERD, HLD, SAM not using CPAP, CHF and abnormal chest CT. CT showed interstitial lung disease with peripheral reticulations and bron chiectasis as well as a mosaic pattern concerning for hypersensitivity pneumonitis. Serologies notable for positive p-ANCA but negative MPO/DE-3 and positive IVAN. Her HSP panel was only positive for mild reaction to common house mold. She had previously denied having animals in her home and then subsequently admitted to having 2 cats, parakeets, flinches and a parrot, at one time having 45 birds in her home. She has subsequently moved to a smaller house and eliminated most of the birds from herenvironment except for 4. From a respiratory standpoint her major symptom is dyspnea with exertion.Her walk oximetry test today did not show need for supplemental oxygen with at activity. She has noted some increased cough and chest congestion. She is able to expectorate phlegm which may have someslight color. No wheezing. She has been compliant with use of her Advair as well and has using Mucinex a daily basis. She has not tried using her rescue inhaler. No recent upper respiratory infectionor hospitalization. She has monitored her oxygen saturations during the daytime which never droppedbelow 90%. She is compliant with use of her oxygen at night. DME: [employer] 3 Liters at night DATA: Oximetry with Ambulation Test for This Encounter O2 Device O2 Adapter NC O2 Flow SpO2% HR Activity Ft Walked (ft) Time (min) Avg Speed (MPH) R/A 96 72 Resting R/A 91 94 Walking, usual pace 270 3 1.02 General Information Pulse Oximetry Site Total Time Spent Walking Assistance/O2 Supply Carrier L Index Finger 30 Cane NAME: Sonia Melissa [facility] PATIENT NAME: Rosalba Abebe DATE: June 21, 2023 TIME: 1:41 PM PFT: Pulmonary function test show restriction and reduction in diffusing capacity that corrects for alveolar volume. No airflow obstruction PAST MEDICAL HISTORY Diagnosis Date Anemia due to vitamin B12 deficiency due to dietary causes Asthma Bird fancier's lung (HCC) Bone pain Chest pain possibly cardiac, continue baby aspirin daily Colon cancer screening 06/2016 cologuard test negative Electrocardiogram abnormal order for nuclear stress test to be done at [facility] Essential hypertension continue meds Fatty liver 11/2015 Fibromyalgia GERD (gastroesophageal reflux disease) take pantoprazole first thing in the morning on an empty stomach, at least 1/2 hour before eating Hyperlipidemia Hypersensitivity pneumonitis (HCC) Insomnia Joint pain Kidney stone change tamsulosin to as needed Left flank pain Migraine consider trial of imitrex after stress test is completed and if it is wnl Mini stroke 2016 Morbid obesity (HCC) Multiple joint pain Multiple lacunar infarcts (HCC) Obesity, unspecified Obstructive sleep apnea syndrome Unable to tolerate positive airway pressure 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 STOPS BREATHING DURING SURGERY. Aspirin Vomiting, Other: See Comments Blood in stool , adverse reaction Bee Venom Protein (* Swelling Cefdinir Diarrhea, GI Upset, Intolerance, Vomiting Cortisone Other: See Comments CAUSES PAIN AND BURNING Darvocet-N 100 [Pro* GI Upset, Vomiting Estrogens Other: See Comments ALL HORMONES, HAVE TRIED MANY. GIVES BREAKTHROUGH BLEEDING Influenza Virus Vac* Unknown Iodinated Contrast * Hives, Vomiting ALL DYES Iodine And Iodide C* Swelling Levaquin [Levofloxa* GI Upset E.E.S. Nsaids (Non-Steroid* Unknown Paxil [Paroxetine H* Other: See Comments Weight gain Spider Venom Swelling Trazodone Intolerance Achiness Venom-Wasp Swelling isosorbide mononitrate ER (IMDUR) 30 mg 24 hr tablet Take 0.5 tablets by mouth once daily. buPROPion SR (WELLBUTRIN SR) 150 mg 12 hr tablet Take 1 tablet by mouth every morning for 3 days, THEN 1 tablet two times a day for 27 days. Ibandronate 150 mg tablet TAKE 1 TABLET ONE TIME PER MONTH Ipratropium Sewell (ATROVENT) 21 mcg (0.03 %) nasal spray USE 1 SPRAY NASALLY TWICE DAILY simvastatin (ZOCOR) 40 mg tablet take 1 tablet at bedtime omeprazole (PRILOSEC) 40 mg capsule TAKE 1 CAPSULE EVERY DAY furosemide (LASIX) 40 mg tablet TAKE 1 AND 1/2 TABLETS TWICE DAILY potassium chloride ER (KLOR-CON M10) 10 mEq tablet TAKE 2 TABLETS TWICE A DAY montelukast (SINGULAIR) 10 mg tablet take 1 tablet at bedtime oxyCODONE-acetaminophen (PERCOCET) 5-325 mg tablet Take 1 tablet by mouth every 6 hours as needed for pain for up to 90 days. sertraline (ZOLOFT) 50 mg tablet take 1 tablet every day allopurinol (ZYLOPRIM) 300 mg tablet take 1 tablet every day tamsulosin (FLOMAX) 0.4 mg TAKE 1 CAPSULE EVERY DAY triamcinolone acetonide (KENALOG) 0.1 % ointment APPLY TO AFFECTED AREA TWICE DAILY NEEDED pectin/vit B6/mins 4/c.vinegar (APPLE CIDER VINEGAR COMPLEX ORAL) Garlic (ODORLESS GARLIC) 300 mg cap pyridoxine, vitamin B6, (VITAMIN B-6) 100 mg tablet fluticasone-salmeterol (ADVAIR, WIXELA) 250-50 mcg/dose inhaler INHALE 1 PUFF INSTRUCTED TWICE DAILY. hydroxyzine HCl (ATARAX ORAL) Take by mouth. Deandra, Zingiber officinalis, (DEANDRA EXTRACT) 250 mg cap Take 450 mg by mouth once daily. Lactobacillus acidophilus (PROBIOTIC) 10 billion cell cap Take by mouth. Prebiotic diphenhydramine HCl (BENADRYL ALLERGY ORAL) Take 2 tablets by mouth every 12 hours as needed. carboxymethylcellulose sodium (ARTIFICIAL TEARS, CMC, OPHTHALMIC) Use in eyes. albuterol HFA (PROVENTIL HFA, VENTOLIN HFA) 90 mcg/actuation inhaler Inhale 2 Puffs as instructed every 4 hours as needed for wheezing/shortness of breath. cholecalciferol (VITAMIN D) 1,000 unit tab tablet Take 1 tablet by mouth once daily. guaiFENesin (MUCINEX) 600 mg 12 hr tablet Take 1 tablet by mouth every 12 hours as needed (cough). (Patient taking differently: Take 600 mg by mouth two times a day.) cetirizine (ZYRTEC) 10 mg tablet Take 10 mg by mouth once daily. omega-3/dha/epa/dpa/fish oil (OMEGA-3 2100 ORAL) Take by mouth. Orlistat (KUSUM) 60 mg capsule Take 120 mg by mouth twice daily with meals. POLYETHYLENE GLYCOL 3350 (MIRALAX ORAL) Take by mouth. aspirin, enteric coated (ASPIRIN, ENTERIC COATED) 81 mg EC tablet Take 81 mg by mouth once daily. docusate sodium (COLACE) 100 mg capsule Take 300 mg by mouth once daily. sodium chloride (SALINE MIST) 0.65 % nasal spray Use 1 [place] in the nose as needed. OTC PRODUCT Super snooze night time sleep (Patient not taking: Reported on 06/21/2023) Social History Tobacco Use Smoking status: Former Packs/day: 1.00 Years: 25.00 Additional pack years: 0.00 Total pack years: 25.00 Types: Cigarettes Quit date: 02/27/1987 Years since quittin.3 Smokeless tobacco: Never Tobacco comments: Former smoker; Tobacco reviewed with patient 08/30/2015 Vaping Use Vaping Use: Never used Substance Use Topics Alcohol use: No Comment: Non-drinker Drug use: No Comment: No reported history FAMILY HISTORY Problem Relation Age of Onset Prostate Cancer Father other (Uterine cancer) Father other (Myocardial infarction) Father Prostate Cancer Paternal Grandmother Prostate Cancer Paternal Uncle Diabetes Other other (Neck cancer) Brother PAST SURGICAL HISTORY Procedure Laterality Date ARTHRP KNE CONDYLE&PLATU MEDIAL&LAT COMPARTMENTS Bilateral CARPAL TUNNEL Left 02/09/2014 SECTION HX [facility] 1986 COLONOSCOPY Removal of polyps, [facility] 01/2013 F LITHOTRIPSY [facility], 8mm kidney stone, rt side w/ stent placement 2013 F TOTAL ABDOMINAL HYSTERECTOMY OPPONENSPLASTY SUPFCIS TDN TR TYP EA TDN Left PMH, Social history, family history and surgical history reviewed and updated in EMR REVIEW OF SYSTEMS: CONSTITUTIONAL: No fevers, chills, nightsweats, unintended weight loss HEENT: Denies nasal congestion/sinus symptoms, postnasal drip CARDIOVASCULAR: No chest pain, palpitations, orthopnea, PND, edema. PULM: See HPI GI: No dysphagia/odynophagia, problematic reflux NEURO: No new balance problems, peripheral weakness/paresthesias or numbness of concern. Tremor MUSC-SKEL: No joint pain, swelling, or erythema. INTEGUMENTARY: No new skin changes or rashes PHYSICAL EXAMINATION: BP 142/80 Pulse 72 Resp 16 Wt 204 lb (92.5kg) SpO2 96% General Appearance: Obese female, NAD. Skin: Skin color, texture, turgor normal, no suspicious rashes or lesions. Head: Normocephalic, no masses, lesions, tenderness or abnormalities. Eyes: Sclera, conjunctiva normal. Oropharynx: Dentures, no oral lesions. Neck: No JVD, no masses, no adenopathy. Lungs: Not labored, normal to percussion, no wheezes or crackles. Heart: Regular rate and rhythm, systolic murmur LUSB. Extremities: No edema or clubbing. Neurologic: Tremor. Lymph Nodes: No cervical lymphadenopathy and No supraclavicular lymphadenopathy. Assessment/Plan: 1. Bird fanciers lung/HSP -She should completely eliminate birds from her environment but is unwilling to do so. She states that she is trying to limit her exposure by having the birds in their own room and wearing a mask when she is cleaning the cages. Persistent exposure places her at risk for development of worsening fibrotic lung disease -She is due for updated chest imaging in October 2. Mild persistent asthma, complicated -Increased chest congestion may be related to her asthma -She will continue on her Advair and her Mucinex -Instructed to use her albuterol. If improves her chest congestion would consider changing her inhaled therapy from Advair to Trelegy 3. Class II obesity -BMI 36 -Weight loss advised 4. Former cigarette smoker -Former [id number] smoker having quit in 1987 of COPD -She does not qualify for lung cancer screening based on the duration of her smoking cessation, however, she is having chest CT surveillance for her hypersensitivity pneumonitis/ILD Nehal Calle MD [facility] Procedure note* Sonia Melissa RPFT - 06/21/2023 1:41 PM EDTAssociated Order(s): OXIMETRY WITH AMBULATION RESPIRATORY THERAPY OXIMETRY WITH AMBULATION Oximetry with Ambulation Test for This Encounter O2 Device O2 Adapter NC O2 Flow SpO2% HR Activity Ft Walked (ft) Time (min) Avg Speed (MPH) R/A 96 72 Resting R/A 91 94 Walking, usual pace 270 3 1.02 General Information Pulse Oximetry Site Total Time Spent Walking Assistance/O2 Supply Carrier L Index Finger 30 Cane NAME: COMPA Valiente PATIENT NAME: Rosalba Abebe DATE: June 21, 2023 TIME: 1:41 PM Comment: [facility]05-02-2024 Procedure note* Sonia Melissa RPFT - 06/21/2023 1:41 PM EDTAssociated Order(s): OXIMETRY WITH AMBULATION RESPIRATORY THERAPY OXIMETRY WITH AMBULATION Oximetry with Ambulation Test for This Encounter O2 Device O2 Adapter NC O2 Flow SpO2% HR Activity Ft Walked (ft) Time (min) Avg Speed (MPH) R/A 96 72 Resting R/A 91 94 Walking, usual pace 270 3 1.02 General Information Pulse Oximetry Site Total Time Spent Walking Assistance/O2 Supply Carrier L Index Finger 30 Cane NAME: COMPA Valiente PATIENT NAME: Rosalba Abebe DATE: June 21, 2023 TIME: 1:41 PM Comment: documented in this encounterDet[facility] History of Present illness Narrative* Sonia Melissa RPFT - 06/21/2023 1:39 PM EDT PULM FUNCTION SMARTBLOCK: Provider: Nehal Calle MD Assisting Tech: Sonia Melissa RPFT Spirometry: 1 DLCO: 1 LV - Box: 1 Oximetry - Ambulation: 1 documented in this encounterDetw[facility]04-[facility]-2024 Telephone encounter Note * Telephone Encounter - Lynette Rivas MA - 06/15/2023 2:13 PM EDT Left message informing patient, phone number to reach the office was left for any questions or concerns. Lynette Rivas MA [facility]04-26-2024 Miscellaneous Notes* Telephone Encounter - Lynette Rivas MA - 06/15/2023 2:13 PM EDT Left message informing patient, phone number to reach the office was left for any questions or concerns. Lynette Rivas MA * Telephone Encounter - Ally Espinosa DO - 06/15/2023 1:56 PM EDT Order attached Ally Espinosa DO * Telephone Encounter - Whit Mandujano MA - 06/15/2023 1:30 PM EDT Pt. Lm on stating she needs new order for vitamin D (she states there was not enough blood), Whit Mandujano MA documented in this encounterDet[facility]04-[facility]24 Telephone encounter Note * Telephone Encounter - Ally Espinosa DO - 06/15/2023 1:56 PM EDT Order attached Ally Espinosa DO [facility]04-26-2024 Telephone encounter Note* Telephone Encounter - Whit Mandujano MA - 06/15/2023 1:30 PM EDT Pt. Lm on stating she needs new order for vitamin D (she states there was not enough blood), Whit Mandujano MA [facility]04-19-2024 History of Present illness Narrative* Ally Espinosa DO - 06/08/2023 1:42 PM EDT Subjective Hypertension This is a chronic problem. The current episode started more than 1 year ago. The problem is unchanged. Pertinent negatives include no blurred vision, chest pain, headaches, malaise/fatigue, palpitations or shortness of breath. Pt is frustrated with her weight She is taking Kusum, would like to lose 40 more pounds, but is stuck' Review of Systems Constitutional: Negative for chills, diaphoresis, fever, malaise/fatigue and weight loss. HENT: Negative for ear pain and hearing loss. Eyes: Negative for blurred vision and double vision. Respiratory: Negative for cough and shortness of breath. Cardiovascular: Negative for chest pain, palpitations and leg swelling. Gastrointestinal: Negative for constipation, diarrhea and heartburn. Genitourinary: Negative for dysuria and frequency. Musculoskeletal: Negative for back pain, falls, joint pain and myalgias. Skin: Negative for itching and rash. Neurological: Negative for dizziness, weakness and headaches. Endo/Heme/Allergies: Does not bruise/bleed easily. Psychiatric/Behavioral: Negative for depression and substance abuse. The patient does not have insomnia. Objective BP 122/74 Pulse 67 Temp 36.6 C (97.9 F) Resp 16 Ht 158.8 cm (5' 2.5) Wt 87.5 kg (193 lb) SpO2 93% BMI 34.74 kg/m Physical Exam Constitutional: Appearance: Normal appearance. She is obese. HENT: Head: Normocephalic and atraumatic. Nose: Nose normal. Mouth/Throat: Mouth: Mucous membranes are moist. Dentition: Normal dentition. Eyes: General: Lids are normal. Extraocular Movements: Extraocular movements intact. Conjunctiva/sclera: Conjunctivae normal. Pupils: Pupils are equal, round, and reactive to light. Neck: Thyroid: No thyroid mass or thyromegaly. Vascular: No carotid bruit. Trachea: Phonation normal. Cardiovascular: Rate and Rhythm: Normal rate and regular rhythm. Heart sounds: Normal heart sounds. No murmur heard. No friction rub. No gallop. Pulmonary: Effort: Pulmonary effort is normal. Breath sounds: Normal breath sounds. No wheezing or rales. Abdominal: General: Bowel sounds are normal. There is no distension. Palpations: Abdomen is soft. There is no mass. Tenderness: There is no abdominal tenderness. Musculoskeletal: General: No swelling or tenderness. Normal range of motion. Cervical back: Normal range of motion and neck supple. No edema. Lymphadenopathy: Cervical: No cervical adenopathy. Skin: General: Skin is warm and dry. Findings: No erythema or rash. Nails: There is no clubbing. Neurological: Mental Status: She is alert and oriented to person, place, and time. Cranial Nerves: No cranial nerve deficit. Motor: Motor function is intact. Coordination: Coordination normal. Gait: Gait is intact. Psychiatric: Attention and Perception: Attention normal. Mood and Affect: Mood and affect normal. Speech: Speech normal. Behavior: Behavior normal. Behavior is cooperative. Thought Content: Thought content normal. Cognition and Memory: Cognition and memory normal. Judgment: Judgment normal. ASSESSMENT/PLAN: 1. Hypertension, essential - ICD9: 401.9, ICD10: I10 (primary diagnosis) - Controlled - Recommend home blood pressure monitoring, to bring results to next visit - Encouraged sodium restriction, DASH or Mediterranean diet - Recommend regular aerobic exercise - ISOSORBIDE MONONITRATE ER 30 MG TABLET,EXTENDED RELEASE 24 HR 2. Obesity, Class I, BMI 30-34.9 - ICD9: 278.00, ICD10: E66.9 Trial of wellbutrin to help with appetite control - BUPROPION HCL SR 150 MG TABLET,12 HR SUSTAINED-RELEASE Ally Espinosa DO documented in this encounterDet[facility]04-[facility] Miscellaneous Notes* Telephone Encounter - Lynette Rivas MA - 05/22/2023 10:13 AM EDT Left message informing patient, phone number to reach the office was left for any questions or concerns. Lynette Rivas MA * Telephone Encounter - Ally Espinosa DO - 05/21/2023 12:53 PM EDT Pt due for blood work - order attached Ally Espinosa DO * Telephone Encounter - Roberto Willis MA - 05/21/2023 7:49 AM EDT pharmacy electronically requesting refills as follows: Last seen 11/03/22 . Last refill atrovent 619, ibandronate 05/31/22 . Requested Prescriptions Pending Prescriptions Disp Refills Ibandronate 150 mg tablet [Pharmacy Med Name: IBANDRONATE SODIUM 150 MG Tablet] 3 tablet 3 Sig: TAKE 1 TABLET ONE TIME PER MONTH Ipratropium Sewell (ATROVENT) 21 mcg (0.03 %) nasal spray [Pharmacy Med Name: IPRATROPIUM BROMIDE 0.03 % Solution] 30 mL 3 Sig: USE 1 SPRAY NASALLY TWICE DAILY Please review and advise. Roberto Willis MA documented in this encounterDet[facility]04-[facility]24 Miscellaneous Notes* Telephone Encounter - Roberto Willis MA - 05/21/2023 11:42 AM EDT pharmacy electronically requesting refills as follows: Last seen 11/03/22 . Last refill 11/01/22 . Next office visit 06/08/23 Requested Prescriptions Pending Prescriptions Disp Refills LORazepam (ATIVAN) 0.5 mg [Pharmacy Med Name: LORAZEPAM 0.5 MG Tablet] 60 tablet Sig: TAKE 1 TABLET TWICE DAILY NEEDED FOR UP TO 30 DAYS Please review and advise. Roberto Willis MA documented in this [facility]03-21-2024 Miscellaneous Notes* Telephone Encounter - Roberto Willis MA - 05/10/2023 9:58 AM EDT Pharmacy electronically requesting refills as follows: Last seen 11/03/22 . Last refill 12/15/22 . Requested Prescriptions Pending Prescriptions Disp Refills furosemide (LASIX) 40 mg tablet [Pharmacy Med Name: FUROSEMIDE 40 MG Tablet] 270 tablet 3 Sig: TAKE 1 AND 1/2 TABLETS TWICE DAILY Please review and advise. Roberto Willis MA documented in this [facility]03-21-2024 Miscellaneous Notes* Telephone Encounter - Roberto Willis MA - 05/10/2023 9:56 AM EDT pharmacy electronically requesting refills as follows: Last seen 11/03/22 . Last refill all 10/02/22 . Requested Prescriptions Pending Prescriptions Disp Refills simvastatin (ZOCOR) 40 mg tablet [Pharmacy Med Name: SIMVASTATIN 40 MG Tablet] 90 tablet 3 Sig: take 1 tablet at bedtime omeprazole (PRILOSEC) 40 mg capsule [Pharmacy Med Name: OMEPRAZOLE 40 MG Capsule Delayed Release] 90 capsule 3 Sig: TAKE 1 CAPSULE EVERY DAY potassium chloride ER (KLOR-CON M10) 10 mEq tablet [Pharmacy Med Name: POTASSIUM CHLORIDE ER 10 MEQTablet Extended Release] 360 tablet 3 Sig: TAKE 2 TABLETS TWICE A DAY Please review and advise. Roberto Willis MA documented in this encounterDetw[facility]03-11-2024 Miscellaneous Notes* Telephone Encounter - Roberto Willis MA - 04/30/2023 8:03 AM EDT pharmacy electronically requesting refills as follows: Last seen 11/03/22 . Last refill 09/25/22 . Requested Prescriptions Pending Prescriptions Disp Refills montelukast (SINGULAIR) 10 mg tablet [Pharmacy Med Name: MONTELUKAST SODIUM 10 MG Tablet] 90 tablet3 Sig: take 1 tablet at bedtime Please review and advise. Roberto Willis MA documented in this encounterDetw[facility]02-29-2024 Miscellaneous Notes* Telephone Encounter - Lynette Rivas MA - 04/19/2023 4:53 PM EST Patient called requesting a referral to [facility] because earlier this month she got up and got a sharp pain in her left knee so she would like a referral Lynette Rivas MA documented in this encounterDetwiler [facility]11-27-2023 Miscellaneous Notes* Telephone Encounter - Ally Espinosa DO - 01/15/2023 7:56 PM EST The letter is printed Ally Espinosa DO * Telephone Encounter - Lynette Rivas MA - 01/15/2023 3:09 PM EST Patient received a notice to serve for jury duty but she is unable to because of health conditions so she was wondering if a letter could be typed for her to be excused Lynette Rivas MA documented in this [facility]11-09-2023 Miscellaneous Notes* Telephone Encounter - Roberto Willis MA - 12/28/2022 7:16 AM EST pharmacy electronically requesting refills as follows: Last seen 11/03/22 . Last refill 05/26/22 . Requested Prescriptions Pending Prescriptions Disp Refills allopurinol (ZYLOPRIM) 300 mg tablet [Pharmacy Med Name: ALLOPURINOL 300 MG Tablet] 90 tablet 10 Sig: take 1 tablet every day Please review and advise. Roberto Willis MA documented in this encounterDetw[facility]10-27-2023 Miscellaneous Notes* Telephone Encounter - Lynette Rivas MA - 12/15/2022 7:38 AM EDT Patient requesting refills as follows: Last Office Visit 11/03/22. Last Refill 05/15/22 lasix and 10/03/22 for oxycodone. Requested Prescriptions Pending Prescriptions Disp Refills oxyCODONE-acetaminophen (PERCOCET) 5-325 mg tablet 120 tablet 0 Sig: Take 1 tablet by mouth every 6 hours as needed for pain for up to 90 days. furosemide (LASIX) 40 mg tablet 270 tablet 1 Please review and advise. Lynette Rivas MA documented in this encounterDetw[facility]10-26-2023 History of Present illness Narrative* Nehal Calle MD - 12/14/2022 11:45 AM EDT Images from the original note were not included. . Res[facility] Note Patient name: Rosalba Abebe PCP: Ally Espinosa DO CC: Follow-up lung disease HPI: Rosalba Abebe 72 year old female former smoker, quitting in 1987 with PMH significant for HTN, hepatic steatosis, asthma, allergies on IT, GERD, HLD, SAM no using CPAP, CHF with abnormal chest CT. Images show peripheral reticulations, bronchiectasis and mosaic attenuation. Serologies notable for positive p-ANCA but negative MPO/PR3 and positive IVAN. ILD clinic recommended hypersensitivity pneumonitis work-up. Panel only positive for mild reaction to common house mold. Patient had previously denied having animals in her home and subsequently admitted to having 2 cats, parakeets, finches and a parrot and at one point had 45 birds in her home. When I interview patients, I always specifically ask about birds, having been misled by patients in the past with ILD and not knowing the etiology. Today she states that she is moved to a smaller home and has eliminated most of the birds from her environment except for 4. 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 Her current respiratory symptoms consist of dyspnea on exertion. She states she has not been wearing her oxygen either at night or as needed during the day. Her selfmonitored SPO2 ranges 92 to 94%. She wants to discontinue her portable oxygen. She denies any sputum production, chronic cough or wheezing. No recent upper respiratory infection or hospitalization. DATA: PFT 05/2022: PAST MEDICAL HISTORY Diagnosis Date Anemia due to vitamin B12 deficiency due to dietary causes Benign essential hypertension Bone pain Chest pain possibly cardiac, continue baby aspirin daily Colon cancer screening 06/2016 cologuard test negative Electrocardiogram abnormal order for nuclear stress test to be done at [facility] Essential hypertension continue meds Fatty liver 11/2015 Fibromyalgia GERD (gastroesophageal reflux disease) take pantoprazole first thing in the morning on an empty stomach, at least 1/2 hour before eating Hyperlipidemia Hypersensitivity pneumonitis (HCC) Insomnia Joint pain Kidney stone change tamsulosin to as needed Left flank pain Migraine consider trial of imitrex after stress test is completed and if it is wnl Mini stroke 2016 Morbid obesity (HCC) Multiple joint pain Multiple lacunar infarcts (HCC) Obesity, unspecified Obstructive sleep apnea syndrome Unable to tolerate positive airway pressure Osteoarthritis of multiple joints s/p B/L TKR Osteopenia 2015 Peripheral neuropathy 02/2016 Pulmonary fibrosis (HCC) Rib fracture Stomach cramps Tremor Vitamin D deficiency ALLERGIES Allergen Reactions Amoxicillin-Pot Cla* Diarrhea, GI Upset Anesthetics - Amide* Other: See Comments BECOMES AGGRESSIVE AND COMBATIVE. STOPS BREATHING DURING SURGERY. Aspirin Vomiting, Other: See Comments Blood in stool , adverse reaction Bee Venom Protein (* Swelling Cortisone Other: See Comments CAUSES PAIN AND BURNING Darvocet-N 100 [Pro* GI Upset, Vomiting Estrogens Other: See Comments ALL HORMONES, HAVE TRIED MANY. GIVES BREAKTHROUGH BLEEDING Influenza Virus Vac* Unknown Iodinated Contrast * Hives, Vomiting ALL DYES Iodine And Iodide C* Swelling Levaquin [Levofloxa* GI Upset E.E.S. Nsaids (Non-Steroid* Unknown Paxil [Paroxetine H* Other: See Comments Weight gain Spider Venom Swelling Trazodone Intolerance Achiness Venom-Wasp Swelling tamsulosin (FLOMAX) 0.4 mg TAKE 1 CAPSULE EVERY DAY triamcinolone acetonide (KENALOG) 0.1 % ointment APPLY TO AFFECTED AREA TWICE DAILY NEEDED pectin/vit B6/mins 4/c.vinegar (APPLE CIDER VINEGAR COMPLEX ORAL) Garlic (ODORLESS GARLIC) 300 mg cap pyridoxine, vitamin B6, (VITAMIN B-6) 100 mg tablet fluticasone-salmeterol (ADVAIR, WIXELA) 250-50 mcg/dose inhaler INHALE 1 PUFF INSTRUCTED TWICE DAILY. oxyCODONE-acetaminophen (PERCOCET) 5-325 mg tablet Take 1 tablet by mouth every 6 hours as needed for pain for up to 90 days. omeprazole (PRILOSEC) 40 mg capsule TAKE 1 CAPSULE EVERY DAY simvastatin (ZOCOR) 40 mg tablet TAKE 1 TABLET AT BEDTIME potassium chloride ER (KLOR-CON M10) 10 mEq tablet TAKE 2 TABLETS TWICE DAILY montelukast (SINGULAIR) 10 mg tablet TAKE 1 TABLET AT BEDTIME sertraline (ZOLOFT) 50 mg tablet TAKE 1 TABLET EVERY DAY Ipratropium Sewell (ATROVENT) 21 mcg (0.03 %) nasal spray USE 1 SPRAY NASALLY TWICE DAILY Ibandronate 150 mg tablet TAKE 1 TABLET ONE TIME PER MONTH allopurinol (ZYLOPRIM) 300 mg tablet TAKE 1 TABLET EVERY DAY furosemide (LASIX) 40 mg tablet TAKE 1 AND 1/2 TABLETS TWICE DAILY (Patient taking differently: 60 mg two times a day.) isosorbide mononitrate ER (IMDUR) 30 mg 24 hr tablet Take 0.5 tablets by mouth once daily. hydroxyzine HCl (ATARAX ORAL) Take by mouth. Deandra, Zingiber officinalis, (DEANDRA EXTRACT) 250 mg cap Take 450 mg by mouth once daily. Lactobacillus acidophilus (PROBIOTIC) 10 billion cell cap Take by mouth. Prebiotic diphenhydramine HCl (BENADRYL ALLERGY ORAL) Take 2 tablets by mouth every 12 hours as needed. carboxymethylcellulose sodium (ARTIFICIAL TEARS, CMC, OPHTHALMIC) Use in eyes. sodium chloride (SALINE MIST) 0.65 % nasal spray Use 1 [place] in the nose as needed. albuterol HFA (PROVENTIL HFA, VENTOLIN HFA) 90 mcg/actuation inhaler Inhale 2 Puffs as instructed every 4 hours as needed for wheezing/shortness of breath. cholecalciferol (VITAMIN D) 1,000 unit tab tablet Take 1 tablet by mouth once daily. guaiFENesin (MUCINEX) 600 mg 12 hr tablet Take 1 tablet by mouth every 12 hours as needed (cough). (Patient taking differently: Take 600 mg by mouth two times a day.) OTC PRODUCT Super snooze night time sleep cetirizine (ZYRTEC) 10 mg tablet Take 10 mg by mouth once daily. omega-3/dha/epa/dpa/fish oil (OMEGA-3 2100 ORAL) Take by mouth. Orlistat (KUSUM) 60 mg capsule Take 120 mg by mouth twice daily with meals. POLYETHYLENE GLYCOL 3350 (MIRALAX ORAL) Take by mouth. aspirin, enteric coated (ASPIRIN, ENTERIC COATED) 81 mg EC tablet Take 81 mg by mouth once daily. docusate sodium (COLACE) 100 mg capsule Take 300 mg by mouth once daily. Social History Tobacco Use Smoking status: Former Packs/day: 1.00 Years: 25.00 Additional pack years: 0.00 Total pack years: 25.00 Types: Cigarettes Quit date: 02/27/1987 Years since quittin.8 Smokeless tobacco: Never Tobacco comments: Former smoker; Tobacco reviewed with patient 08/30/2015 Vaping Use Vaping Use: Never used Substance Use Topics Alcohol use: No Comment: Non-drinker Drug use: No Comment: No reported history FAMILY HISTORY Problem Relation Age of Onset Prostate Cancer Father other (Uterine cancer) Father other (Myocardial infarction) Father Prostate Cancer Paternal Grandmother Prostate Cancer Paternal Uncle Diabetes Other other (Neck cancer) Brother PAST SURGICAL HISTORY Procedure Laterality Date ARTHRP KNE CONDYLE&PLATU MEDIAL&LAT COMPARTMENTS Bilateral CARPAL TUNNEL Left 02/09/2014 SECTION HX [facility] 1986 COLONOSCOPY Removal of polyps, [facility] 01/2013 F LITHOTRIPSY [facility], 8mm kidney stone, rt side w/ stent placement 2013 F TOTAL ABDOMINAL HYSTERECTOMY OPPONENSPLASTY SUPFCIS TDN TR TYP EA TDN Left PMH, Social history, family history and surgical history reviewed and updated in EMR REVIEW OF SYSTEMS: CONSTITUTIONAL: No fevers, chills, nightsweats, unintended weight loss HEENT: Denies nasal congestion/sinus symptoms, allergy problems. CARDIOVASCULAR: No chest pain, palpitations, orthopnea, PND, edema. PULM: See HPI GI: No dysphagia/odynophagia, problematic reflux, constipation, diarrhea. NEURO: No new balance problems, peripheral weakness/paresthesias or numbness of concern. MUSC-SKEL: No new joint pain, swelling, or erythema. INTEGUMENTARY: No new skin changes or rashes PHYSICAL EXAMINATION: BP 122/64 Pulse 72 Wt 194 lb (88.0kg) SpO2 95% General Appearance: Obese female, NAD. Skin: Skin color, texture, turgor normal, no suspicious rashes or lesions. Head: Normocephalic, no masses, lesions, tenderness or abnormalities. Eyes: Sclera, conjunctiva normal. Oropharynx: No oral lesions or thrush. Lungs: Not labored, normal to percussion, no wheezes or crackles. Heart: Regular rate and rhythm, soft systolic murmur. Extremities: No edema or clubbing. Assessment/Plan: 1. Bird fanciers lung -Continue to recommend removal of all birds from her environment -She understands that continued exposure may lead to pulmonary fibrosis and respiratory failure andearly -Pulmonary function tests at next visit 2. Mild intermittent asthma, uncomplicated -She will continue on her current inhaled therapy -No need for refills at this time 3. Hypoxemia -Patient strongly encouraged to wear oxygen at night -Will repeat ambulatory oximetry assessment. If able to maintain adequate saturation with exertion then will discontinue her portable oxygen Nehal Calle MD [facility] documented in this encounterDetw[facility]08-30-2023 Miscellaneous Notes* Telephone Encounter - Kaylah Lara LPN - 10/18/2022 1:11 PM EDT CHRISTIANO: 06/12/22 Patient phones requesting refills as follows: Requested Prescriptions Pending Prescriptions Disp Refills fluticasone-salmeterol (ADVAIR, WIXELA) 250-50 mcg/dose inhaler [Pharmacy Med Name: FLUTICASONE PROPIONATE/SALMETEROL DISKUS 250-50 MCG/ACT Aerosol Powder Breath Activated] 180 Each 3 Sig: INHALE 1 PUFF INSTRUCTED TWICE DAILY. Please review and advise. Kaylah Lara LPN documented in this encounterDetwiler [facility]08-24-2023 Miscellaneous Notes* Telephone Encounter - Roberto Willis MA - 10/12/2022 7:45 AM EDT pharmacy electronically requesting refills as follows: Last seen 04/18/22 . Last refill 06/08/22 . Requested Prescriptions Pending Prescriptions Disp Refills triamcinolone acetonide (KENALOG) 0.1 % ointment [Pharmacy Med Name: TRIAMCINOLONE ACETONIDE 0.1 % Ointment] 80 g 0 Sig: APPLY TO AFFECTED AREA TWICE DAILY NEEDED Please review and advise. Roberto Willis MA documented in this encounterDetwiler [facility]08-14-2023 Miscellaneous Notes* Telephone Encounter - Roberto Willis MA - 10/02/2022 8:15 AM EDT pharmacy electronically requesting refills as follows: Last seen 04/18/22 . Last refill all 04/18/22 . Requested Prescriptions Pending Prescriptions Disp Refills omeprazole (PRILOSEC) 40 mg capsule [Pharmacy Med Name: OMEPRAZOLE 40 MG Capsule Delayed Release] 90 capsule 1 Sig: TAKE 1 CAPSULE EVERY DAY simvastatin (ZOCOR) 40 mg tablet [Pharmacy Med Name: SIMVASTATIN 40 MG Tablet] 90 tablet 1 Sig: TAKE 1 TABLET AT BEDTIME potassium chloride ER (KLOR-CON M10) 10 mEq tablet [Pharmacy Med Name: POTASSIUM CHLORIDE ER 10 MEQTablet Extended Release] 360 tablet 1 Sig: TAKE 2 TABLETS TWICE DAILY Please review and advise. Roberto Willis MA documented in this encounterDetwiler [facility]08-07-2023 Miscellaneous Notes* Telephone Encounter - Whit Mandujano MA - 09/25/2022 8:50 AM EDT Pharm requesting refills: Last office visit 04/18/2022. Last refill 02/15/2022 nov none Requested Prescriptions Pending Prescriptions Disp Refills montelukast (SINGULAIR) 10 mg tablet [Pharmacy Med Name: MONTELUKAST SODIUM 10 MG Tablet] 90 tablet1 Sig: TAKE 1 TABLET AT BEDTIME Please review and advise. Cristy Hirsch documented in this [facility]08-03-2023 Miscellaneous Notes* Telephone Encounter - Lynette Rivas MA - 09/21/2022 7:46 AM EDT Pharmacy requesting refills as follows: Last Office Visit 04/18/22. Last Refill 07/03/22. Requested Prescriptions Pending Prescriptions Disp Refills sertraline (ZOLOFT) 50 mg tablet [Pharmacy Med Name: SERTRALINE HCL 50 MG Tablet] 90 tablet 0 Sig: TAKE 1 TABLET EVERY DAY Please review and advise. Lynette Rivas MA documented in this encounterDetwiler [facility]06-23-2023 Miscellaneous Notes* Telephone Encounter - Valentina Stafford RN - 08/11/2022 9:08 AM EDT Pt. returned call. Given information below. States she would like to stay in [place] if possible. Pt. will reach out to [facility] doctors (PCP and Neuro) for appt. Thank you. Valentina Stafford RN * Telephone Encounter - Kaylah Lara LPN - 08/08/2022 2:43 PM EDT Left message to call. If she is wanting to stay in [facility], Dr. Paul or supporting PAs available at [facility] for neurology, Cardiology available Mondays or [facility] if she would like to stay [facility] Primary Care availability within [facility] may be limited due to a provider out on fellowship, would be best to contact family and internal med scheduling. 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 Please advise. Thank you. Rosalba# [phone] Whit Reeves LPN documented in this encounterDetwiler [facility]06-21-2023 Miscellaneous Notes* Telephone Encounter - Whit Mandujano MA - 08/09/2022 7:12 AM EDT Pharmacy requesting refills: Last office visit 04/18/2022. Last refill 06/26/2022 nov none Requested Prescriptions Pending Prescriptions Disp Refills oxyCODONE-acetaminophen (PERCOCET) 5-325 mg tablet 120 tablet 0 Sig: Take 1 tablet by mouth every 6 hours as needed for pain for up to 90 days. Please review and advise. Whit Mandujano MA documented in this encounterDetwiler [facility] Hospital06-20-2023 Miscellaneous Notes* Telephone Encounter - Lynette Rivas MA - 08/08/2022 8:50 AM EDT Pharmacy requesting refills as follows: Last Office Visit 04/18/22. Last Refill 06/26/22. Requested Prescriptions Pending Prescriptions Disp Refills LORazepam (ATIVAN) 0.5 mg [Pharmacy Med Name: LORAZEPAM 0.5 MG Tablet] 60 tablet Sig: TAKE 1 TABLET TWICE DAILY NEEDED FOR UP TO 30 DAYS Please review and advise. Lynette Rivas MA documented in this encounterDetwiler [facility] Hospital06-19-2023 Miscellaneous Notes* Telephone Encounter - Whit Mandujnao MA - 08/07/2022 11:06 AM EDT 06/12/2022 requesting refills: Last office visit 04/18/2022. Last refill 10/28/2021 nov none Requested Prescriptions Pending Prescriptions Disp Refills Ipratropium Sewell (ATROVENT) 21 mcg (0.03 %) nasal spray [Pharmacy Med Name: IPRATROPIUM BROMIDE 0.03 % Solution] 30 mL 2 Sig: USE 1 SPRAY NASALLY TWICE DAILY Please review and advise. Whit Mandujano MA documented in this encounterDetwiler [facility] Hospital05-15-2023 Miscellaneous Notes* Telephone Encounter - Lynette Rivas MA - 07/03/2022 8:15 AM EDT Pharmacy requesting refills as follows: Last Office Visit 04/18/22. Last Refill 04/18/22. Requested Prescriptions Pending Prescriptions Disp Refills sertraline (ZOLOFT) 50 mg tablet [Pharmacy Med Name: SERTRALINE HCL 50 MG Tablet] 90 tablet 0 Sig: TAKE 1 TABLET EVERY DAY Please review and advise. Lynette Rivas MA documented in this encounterDetwiler [facility] Hospital04-24-2023 Procedure note* COMPA Valiente - 06/12/2022 2:29 PM EDTAssociated Order(s): OXIMETRY WITH AMBULATION RESPIRATORY THERAPY OXIMETRY WITH AMBULATION Oximetry with Ambulation Test for This Encounter O2 Device O2 Adapter NC O2 Flow SpO2% HR Activity Ft Walked (ft) Time (min) Avg Speed (MPH) R/A 98 69 Resting R/A 92 95 Walking, usual pace 320 3 1.21 R/A 95 100 Walking, fastest pace 415 3 1.57 General Information Pulse Oximetry Site Total Time Spent O2 Supply Carrier Walking Assistance/Device R Index Finger 20 -- Cane NAME: COMPA Valiente PATIENT NAME: Rosalba Abebe DATE: June 12, 2022 TIME: 2:30 PM Comment: documented in this encounterDetwiler [facility] Hospital04-24-2023 History of Present illness Narrative* COMPA Valiente - 06/12/2022 2:17 PM EDT PULM FUNCTION SMARTBLOCK: Provider: Leslie Mukherjee PA-C Assisting Tech: COMPA Valiente Oximetry - Ambulation: 1 documented in this encounterDetwiler [facility] Hospital04-24-2023 History of Present illness Narrative* COMPA Valiente - 06/12/2022 1:29 PM EDT PULM FUNCTION SMARTBLOCK: Provider: Nehal Calle MD Assisting Tech: COMPA Valiente Spirometry: 1 DLCO: 1 LV - Box: 1 documented in this [facility]04-20-2023 Miscellaneous Notes* Telephone Encounter - Lynette Rivas MA - 06/08/2022 7:40 AM EDT Pharmacy requesting refills as follows: Last Office Visit 04/18/22. Last Refill 04/24/22. Requested Prescriptions Pending Prescriptions Disp Refills triamcinolone acetonide (KENALOG) 0.1 % ointment [Pharmacy Med Name: TRIAMCINOLONE ACETONIDE 0.1 % Ointment] 80 g 0 Sig: APPLY TO AFFECTED AREA TWICE DAILY NEEDED Please review and advise. Lynette Rivas MA documented in this encounterDetwiler [facility] Hospital04-12-2023 Miscellaneous Notes* Telephone Encounter - Roberto Willis MA - 05/31/2022 11:08 AM EDT pharmacy electronically requesting refills as follows: Last seen 04/18/22 . Last refill 06/15/21 . Requested Prescriptions Pending Prescriptions Disp Refills Ibandronate 150 mg tablet [Pharmacy Med Name: IBANDRONATE SODIUM 150 MG Tablet] 3 tablet 3 Sig: TAKE 1 TABLET ONE TIME PER MONTH Please review and advise. Roberto Willis MA documented in this [facility]03-27-2023 Miscellaneous Notes* Telephone Encounter - Roberto Willis MA - 05/15/2022 8:53 AM EDT pharmacy electronically requesting refills as follows: Last seen 04/18/22 . Last refill 12/27/21 . Requested Prescriptions Pending Prescriptions Disp Refills furosemide (LASIX) 40 mg tablet [Pharmacy Med Name: FUROSEMIDE 40 MG Tablet] 270 tablet 1 Sig: TAKE 1 AND 1/2 TABLETS TWICE DAILY Please review and advise. Roberto Willis MA documented in this encounterDetwiler [facility]03-13-2023 Miscellaneous Notes* Telephone Encounter - Whit Mandujano MA - 05/01/2022 7:35 AM EDT Pharmacy requesting refills: Last office visit 04/18/2022 . Last refill 07/19/2021 nov none Requested Prescriptions Pending Prescriptions Disp Refills tamsulosin (FLOMAX) 0.4 mg [Pharmacy Med Name: TAMSULOSIN HYDROCHLORIDE 0.4 MG Capsule] 90 capsule 1 Sig: TAKE 1 CAPSULE EVERY DAY Please review and advise. Whit Mandujano MA documented in this encounterDetwiler [facility] Hospital03-02-2023 Miscellaneous Notes* Addendum Note - Ally Espinosa DO - 04/20/2022 5:09 PM ESTAddended by: ALLY ESPINOSA on: 04/20/2022 05:09 PM Modules accepted: Orders * Addendum Note - Roberto Willis MA - 04/20/2022 4:39 PM ESTAddended by: ROBERTO WILLIS on: 04/20/2022 04:39 PM Modules accepted: Orders * Telephone Encounter - Roberto Willis MA - 04/20/2022 4:38 PM EST Patient left message requesting script be sent to [facility] pharmacy. Roberto Willis MA * Telephone Encounter - Whit Mandujano MA - 04/20/2022 1:04 PM EST Left message on patients vm to contact office and let us know if she wants full dose [facility] [address] [place] or lower dose sent to [facility]. Whit Mandujano MA * Addendum Note - Ally Espinosa DO - 04/20/2022 12:42 PM ESTAddended by: ALLY ESPINOSA on: 04/20/2022 12:42 PM Modules accepted: Orders * Telephone Encounter - Ally Espinosa DO - 04/20/2022 12:42 PM EST Please call pt- I sent the Rx for percocet to [facility] - did she want those sent to [facility] instead? Ally Espinosa DO * Telephone Encounter - Whit Mandujano MA - 04/20/2022 10:56 AM EST Pharmacy lm on stating they can only release a 30 day supply of oxycodone. They are asking to send 120 pills. Please resend. Thanks. Whit Mandujano MA documented in this encounterDetwiler [facility] Hospital02-28-2023 History of Present illness Narrative* Ally Espinosa DO - 04/18/2022 1:49 PM EST Subjective HPI Pt is here for 3 month f/u for insomnia She was prescribed lorazepam 0.5 mg at bedtime, but she never received that medication She was supposed to increase sertraline to 50 mg at bedtime, but does not think that is what she istaking She was seeing Dr. Lino, neurologist, who started her on pramipexole for tremors, but she stopped this medication and is not planning to return to see Dr. Lino She has chronic pain, which tramadol was not helping She was started on percocet at her last visit, but it is not helping her pain ALLERGIES Allergen Reactions Amoxicillin-Pot Cla* Diarrhea, GI Upset Anesthetics - Amide* Other: See Comments BECOMES AGGRESSIVE AND COMBATIVE. STOPS BREATHING DURING SURGERY. Aspirin Vomiting, Other: See Comments Blood in stool , adverse reaction Bee Venom Protein (* Swelling Cortisone Other: See Comments CAUSES PAIN AND BURNING Darvocet-N 100 [Pro* GI Upset, Vomiting Estrogens Other: See Comments ALL HORMONES, HAVE TRIED MANY. GIVES BREAKTHROUGH BLEEDING Influenza Virus Vac* Unknown Iodinated Contrast * Hives, Vomiting ALL DYES Iodine And Iodide C* Swelling Levaquin [Levofloxa* GI Upset E.E.S. Nsaids (Non-Steroid* Unknown Paxil [Paroxetine H* Other: See Comments Weight gain Spider Venom Swelling Trazodone Intolerance Achiness Venom-Wasp Swelling Current Outpatient Medications Medication Sig Dispense Refill triamcinolone acetonide (KENALOG) 0.1 % ointment APPLY TO AFFECTED AREA TWICE DAILY NEEDED 80 g 0 isosorbide mononitrate ER (IMDUR) 30 mg 24 hr tablet Take 0.5 tablets by mouth once daily. 90 tablet 3 montelukast (SINGULAIR) 10 mg tablet TAKE 1 TABLET AT BEDTIME 90 tablet 1 pramipexole (MIRAPEX) 0.125 mg tablet hydroxyzine HCl (ATARAX ORAL) Take by mouth. fluticasone-salmeterol (ADVAIR, WIXELA) 250-50 mcg/dose inhaler Inhale 1 Puff as instructed twice daily. 3 Each 3 allopurinol (ZYLOPRIM) 300 mg tablet Take 1 tablet by mouth once daily. 90 tablet 1 furosemide (LASIX) 40 mg tablet Take 1.5 tablets by mouth twice daily. 270 tablet 1 sertraline (ZOLOFT) 50 mg tablet Take 1 tablet by mouth once daily. Ipratropium Sewell (ATROVENT) 21 mcg (0.03 %) nasal spray USE 1 SPRAY NASALLY TWICE DAILY 30 mL 2 omeprazole (PRILOSEC) 40 mg capsule TAKE 1 CAPSULE EVERY DAY 90 capsule 1 Deandra, Zingiber officinalis, (DEANDRA EXTRACT) 250 mg cap Take 450 mg by mouth once daily. Lactobacillus acidophilus (PROBIOTIC) 10 billion cell cap Take by mouth. Prebiotic diphenhydramine HCl (BENADRYL ALLERGY ORAL) Take 2 tablets by mouth every 12 hours as needed. carboxymethylcellulose sodium (ARTIFICIAL TEARS, CMC, OPHTHALMIC) Use in eyes. sodium chloride (SALINE MIST) 0.65 % nasal spray Use 1 [place] in the nose as needed. potassium chloride ER (K-DUR, KLOR-CON) 10 mEq tablet TAKE 2 TABLETS TWICE DAILY 360 tablet 1 simvastatin (ZOCOR) 40 mg tablet TAKE 1 TABLET EVERY DAY AT BEDTIME 90 tablet 1 tamsulosin (FLOMAX) 0.4 mg TAKE 1 CAPSULE EVERY DAY 90 capsule 1 Ibandronate 150 mg tablet TAKE 1 TABLET ONE TIME PER MONTH 3 tablet 3 albuterol HFA (PROVENTIL HFA, VENTOLIN HFA) 90 mcg/actuation inhaler Inhale 2 Puffs as instructed every 4 hours as needed for wheezing/shortness of breath. 1 Inhaler 1 cholecalciferol (VITAMIN D) 1,000 unit tab tablet Take 1 tablet by mouth once daily. guaiFENesin (MUCINEX) 600 mg 12 hr tablet Take 1 tablet by mouth every 12 hours as needed (cough). (Patient taking differently: Take 600 mg by mouth twice daily.) 30 tablet 0 OTC PRODUCT Super snooze night time sleep cetirizine (ZYRTEC) 10 mg tablet Take 10 mg by mouth once daily. omega-3/dha/epa/dpa/fish oil (OMEGA-3 2100 ORAL) Take by mouth. Orlistat (KUSUM) 60 mg capsule Take 120 mg by mouth twice daily with meals. POLYETHYLENE GLYCOL 3350 (MIRALAX ORAL) Take by mouth. Acetaminophen 500 mg cap Take 2 tablets by mouth twice daily. aspirin, enteric coated (ASPIRIN, ENTERIC COATED) 81 mg EC tablet Take 81 mg by mouth once daily. docusate sodium (COLACE) 100 mg capsule Take 300 mg by mouth once daily. predniSONE (DELTASONE) 10 mg tablet Take 4 daily for three days, then 3 daily for three days, then 2 daily for three days, then one daily for three days. 30 tablet 0 ergocalciferol 50,000 unit capsule (VITAMIN D2, DRISDOL) Take 1 capsule by mouth one time a week. Use as directed. 4 capsule 1 No current facility-administered medications for this visit. ACTIVE PROBLEM LIST Hyperlipidemia Gout With Manifestations Chronic Low Back Pain Without Sciatica Elevated Alkaline Phosphatase Level Bilateral Leg Edema Kidney Stones Chronic Insomnia Peripheral Polyneuropathy Lung Nodules Vitamin D Deficiency Vitamin B12 Deficiency [place] (Generalized Anxiety Disorder) Status Post Total Left Knee Replacement Status Post Total Right Knee Replacement Lumbar Degenerative Disc Disease Spinal Stenosis of Lumbar Region With Neurogenic Claudication Paget's Disease of Bone Diverticulitis Gallstones Compression Fracture of Body of Thoracic Vertebra (Hcc) Primary Osteoarthritis Involving Multiple Joints Seasonal Allergies Dermatitis Morbid Obesity With Bmi of 40.0-44.9, Adult ([facility]) Mild Intermittent Asthma, Uncomplicated Hypertension, Essential Nonrheumatic Aortic Valve Stenosis Nonrheumatic Mitral Valve Regurgitation Gerd With Esophagitis Pulmonary Fibrosis (Hcc) Nocturnal Hypoxia Chronic Diastolic Chf (Congestive Heart Failure) (Hcc) Chronic Respiratory Failure With Hypoxia (Hcc) Hypertensive Heart Disease With Chronic Diastolic Congestive Heart Failure (Hcc) Bmi 40.0-44.9, Adult (Hcc) Tremors of Nervous System Social History Tobacco Use Smoking status: Former Packs/day: 1.00 Years: 25.00 Pack years: 25.00 Types: Cigarettes Quit date: 02/27/1987 Years since quittin.1 Smokeless tobacco: Never Tobacco comments: Former smoker; Tobacco reviewed with patient 08/30/2015 Vaping Use Vaping Use: Never used Substance Use Topics Alcohol use: No Comment: Non-drinker Drug use: No Comment: No reported history Family History Problem Relation Age of Onset Prostate Cancer Father other (Uterine cancer) Father other (Myocardial infarction) Father Prostate Cancer Paternal Grandmother Prostate Cancer Paternal Uncle Diabetes Other other (Neck cancer) Brother Reviewed past medical history, family history and surgeries. All medications and supplements were reviewed with the patient. Review of Systems Constitutional: Positive for weight loss. Negative for chills, diaphoresis, fever and malaise/fatigue. HENT: Negative for ear pain and hearing loss. Eyes: Negative for blurred vision and double vision. Respiratory: Negative for cough and shortness of breath. Cardiovascular: Negative for chest pain, palpitations and leg swelling. Gastrointestinal: Negative for constipation, diarrhea and heartburn. Genitourinary: Negative for dysuria and frequency. Musculoskeletal: Positive for back pain. Negative for falls, joint pain and myalgias. Skin: Negative for itching and rash. Neurological: Negative for dizziness, weakness and headaches. Endo/Heme/Allergies: Does not bruise/bleed easily. Psychiatric/Behavioral: Negative for depression and substance abuse. The patient has insomnia. Objective BP 128/68 Pulse 70 Temp 36.9 C (98.4 F) Resp 16 Ht 157.5 cm (5' 2) Wt 96.4 kg (212 lb 9.6 oz) SpO2 100% BMI 38.89 kg/m Physical Exam Constitutional: Appearance: Normal appearance. She is obese. HENT: Head: Normocephalic and atraumatic. Nose: Nose normal. Mouth/Throat: Mouth: Mucous membranes are moist. Dentition: Normal dentition. Eyes: General: Lids are normal. Extraocular Movements: Extraocular movements intact. Conjunctiva/sclera: Conjunctivae normal. Pupils: Pupils are equal, round, and reactive to light. Neck: Thyroid: No thyroid mass or thyromegaly. Vascular: No carotid bruit. Trachea: Phonation normal. Cardiovascular: Rate and Rhythm: Normal rate and regular rhythm. Heart sounds: Normal heart sounds. No murmur heard. No friction rub. No gallop. Pulmonary: Effort: Pulmonary effort is normal. Breath sounds: Normal breath sounds. No wheezing or rales. Abdominal: General: Bowel sounds are normal. There is no distension. Palpations: Abdomen is soft. There is no mass. Tenderness: There is no abdominal tenderness. Musculoskeletal: General: No swelling or tenderness. Normal range of motion. Cervical back: Normal range of motion and neck supple. No edema. Lymphadenopathy: Cervical: No cervical adenopathy. Skin: General: Skin is warm and dry. Findings: No erythema or rash. Nails: There is no clubbing. Neurological: Mental Status: She is alert and oriented to person, place, and time. Cranial Nerves: No cranial nerve deficit. Motor: Motor function is intact. Coordination: Coordination normal. Gait: Gait is intact. Psychiatric: Attention and Perception: Attention normal. Mood and Affect: Mood and affect normal. Speech: Speech normal. Behavior: Behavior normal. Behavior is cooperative. Thought Content: Thought content normal. Cognition and Memory: Cognition and memory normal. Judgment: Judgment normal. ASSESSMENT/PLAN: 1. ULYSSES (generalized anxiety disorder) - ICD9: 300.02, ICD10: F41.1 (primary diagnosis) Increase sertraline to 50 mg at bedtime - SERTRALINE 50 MG TABLET 2. Chronic insomnia - ICD9: 780.52, ICD10: F51.04 Trial of lorazepam at bedtime - LORAZEPAM 0.5 MG TABLET 3. Chronic bilateral low back pain without sciatica - ICD9: 724.2, 338.29, ICD10: M54.50, G89.29 - OXYCODONE-ACETAMINOPHEN 5 MG-325 MG TABLET 4. Hyperlipidemia, unspecified hyperlipidemia type - ICD9: 272.4, ICD10: E78.5 - SIMVASTATIN 40 MG TABLET 5. Gastroesophageal reflux disease with esophagitis without hemorrhage - ICD9: 530.81, 530.10, ICD10: K21.00 Continue omeprazole - OMEPRAZOLE 40 MG CAPSULE,DELAYED RELEASE 6. Chronic diastolic CHF (congestive heart failure) (HCC) - ICD9: 428.32, 428.0, ICD10: I50.32 - POTASSIUM CHLORIDE ER 10 MEQ TABLET,EXTENDED RELEASE(PART/CRYST) 7 Obesity, Class II, BMI 35-39.9 - ICD9: 278.00, ICD10: E66.9 Lifestyle modification recommended Ally Espinosa DO [facility] History of Present illness Narrative* Nehal Calle MD - 03/10/2022 2:15 PM EST Images from the original note were not included. . [facility] Note Patient name: Rosalba Abebe PCP: Ally Espinosa DO CC: Follow-up HPI: Rosalba Abebe 71 year old obese female former smoker quittin 1987 with PMH significant for HTN, hepatic steatosis, asthma, allergies on IT, GERD, HLD, SAM not on CPAP, CHF with abnormal chest CT. Images show peripheral reticular markings, bronchiectasis, and mosaic attenuation. Autoimmune serologies notable for positive pANCA but negative MPO and PR3, positive IVAN. Possible early IPF, but pattern atypical. Not UIP pattern and significant mosaic attenuation. E- consult to ILD clinic recommended evaluation for HSP. HSP and HSP to panel only showed mild reaction to common house mold. Today she was asking whether exposure to birds may be pertinent. She now states that she has 2 cats, parakeets, finches, and a parrot. At one point she had 45 birds in her home. At her initial evaluation, Ispecifically asked about pets including birds and chickens and she denied having any animals. She states that she may have misunderstood the question or not not heard me correctly. She continues to have significant dyspnea on exertion. She does not wear her oxygen continuously. She has been dry nagging cough. DATA: Labs: Component Ref Range & Units 2 mo ago Aspergillus fumigatus 1 None Detected None Detected Aspergillus fumigatus 6 None Detected None Detected Aureobasidium pullulans None Detected None Detected Tyler Serum AB None Detected None Detected Micropolyspora faeni None Detected None Detected Thermoactinomyces vulgaris 1 None Detected See Note Component Ref Range & Units 2 mo ago Alternaria tenuis/Alternata IgG <12.0 mcg/mL 3.2 Aspergillus fumigatus IgG <46.0 mcg/mL 28.2 Aureobasidium pullulans IgG <18.0 mcg/mL 5.1 Laceyella sacchari IgG <25.0 mcg/mL 6.2 Micropolyspora faeni IgG <5.0 mcg/mL 2.2 Penicillium chrysogenum IgG <22.0 mcg/mL 22.2 High Phoma betae IgG <8.0 mcg/mL 5.4 Trichoderma viride IgG <10.0 mcg/mL 6.0 Imaging / Diagnostic Studies: DATE OF EXAM: Nov 08 2021 1:48PM [facility] 0541 - CT CHEST WO IVCON / Comparison: CT chest on 04/02/2021 RESULT: Limitations: None. Lines, tubes, and devices: None. Lung parenchyma and airways: The central airways are patent. There are fine reticular opacities in the bilateral lungs predominantly located in the peripheral areas, with involvement of immediate subpleural regions. There are multiple groundglass opacities in the bilateral lungs or mosaic pattern of attenuations. Traction bronchiectasis is visualized, with some architectural distortion; however no honeycombing. No mass lesion identified. Pleural space: No pleural effusion or pneumothorax. No pleural thickening. Lower neck, lymph nodes, and mediastinum: Stable thyroid gland. No supraclavicular or axillary lymphadenopathy. There are a few borderline or mildly enlarged mediastinal lymph nodes, without progressive lymphadenopathy. Heart, pericardium, and thoracic vessels: Stable cardiac chambers, thoracic aorta and central pulmonary arteries. No pericardial effusions or thickening. Bones and soft tissues: The chest wall soft tissue has been stable. There are degenerative changes in the spine. A sclerotic focus in the T12 vertebral body likely representing small bone island. Upper abdomen: Limited study through the upper abdomen demonstrates gallbladder stones versus sludge. IMPRESSION: Fibrotic changes in the bilateral lungs, similar to prior study. A few borderline or mildly enlarged mediastinal lymph nodes, likely reactive. Abdominal findings as described above. I personally reviewed the images as well as with the patient which shows peripheral reticular markings and mosaic attenuation with traction bronchiectasis but no honeycombing PAST MEDICAL HISTORY Diagnosis Date Anemia due to vitamin B12 deficiency due to dietary causes Benign essential hypertension Bone pain Chest pain possibly cardiac, continue baby aspirin daily Colon cancer screening 06/2016 cologuard test negative Electrocardiogram abnormal order for nuclear stress test to be done at [facility] Essential hypertension continue meds Fatty liver 11/2015 Fibromyalgia GERD (gastroesophageal reflux disease) take pantoprazole first thing in the morning on an empty stomach, at least 1/2 hour before eating Hyperlipidemia Insomnia Joint pain Kidney stone change tamsulosin to as needed Left flank pain Migraine consider trial of imitrex after stress test is completed and if it is wnl Mini stroke 2016 Morbid obesity (HCC) Multiple joint pain Multiple lacunar infarcts (HCC) Obesity, unspecified Obstructive sleep apnea syndrome Unable to tolerate positive airway pressure Osteoarthritis of multiple joints s/p B/L TKR Osteopenia 2015 Peripheral neuropathy 02/2016 Pulmonary fibrosis (HCC) Rib fracture Stomach cramps Tremor Vitamin D deficiency ALLERGIES Allergen Reactions Amoxicillin-Pot Cla* Diarrhea, GI Upset Anesthetics - Amide* Other: See Comments BECOMES AGGRESSIVE AND COMBATIVE. STOPS BREATHING DURING SURGERY. Aspirin Vomiting, Other: See Comments Blood in stool , adverse reaction Bee Venom Protein (* Swelling Cortisone Other: See Comments CAUSES PAIN AND BURNING Darvocet-N 100 [Pro* GI Upset, Vomiting Estrogens Other: See Comments ALL HORMONES, HAVE TRIED MANY. GIVES BREAKTHROUGH BLEEDING Influenza Virus Vac* Unknown Iodinated Contrast * Hives, Vomiting ALL DYES Iodine And Iodide C* Swelling Levaquin [Levofloxa* GI Upset E.E.S. Nsaids (Non-Steroid* Unknown Paxil [Paroxetine H* Other: See Comments Weight gain Spider Venom Swelling Trazodone Intolerance Achiness Venom-Wasp Swelling fluticasone-salmeterol (ADVAIR, WIXELA) 250-50 mcg/dose inhaler Inhale 1 Puff as instructed twice daily. predniSONE (DELTASONE) 10 mg tablet Take 4 daily for three days, then 3 daily for three days, then 2 daily for three days, then one daily for three days. triamcinolone acetonide (KENALOG) 0.1 % ointment APPLY TO AFFECTED AREA TWICE DAILY NEEDED oxyCODONE-acetaminophen (PERCOCET) 5-325 mg tablet Take 1 tablet by mouth every 8 hours as needed for pain for up to 30 days. isosorbide mononitrate ER (IMDUR) 30 mg 24 hr tablet Take 0.5 tablets by mouth once daily. montelukast (SINGULAIR) 10 mg tablet TAKE 1 TABLET AT BEDTIME pramipexole (MIRAPEX) 0.125 mg tablet hydroxyzine HCl (ATARAX ORAL) Take by mouth. LORazepam (ATIVAN) 0.5 mg Take 1 tablet by mouth at bedtime as needed for up to 90 days. allopurinol (ZYLOPRIM) 300 mg tablet Take 1 tablet by mouth once daily. ergocalciferol 50,000 unit capsule (VITAMIN D2, DRISDOL) Take 1 capsule by mouth one time a week. Use as directed. furosemide (LASIX) 40 mg tablet Take 1.5 tablets by mouth twice daily. sertraline (ZOLOFT) 50 mg tablet Take 1 tablet by mouth once daily. Ipratropium [place]ell (ATROVENT) 21 mcg (0.03 %) nasal spray USE 1 SPRAY NASALLY TWICE DAILY omeprazole (PRILOSEC) 40 mg capsule TAKE 1 CAPSULE EVERY DAY Deandra, Zingiber officinalis, (DEANDRA EXTRACT) 250 mg cap Take 450 mg by mouth once daily. Lactobacillus acidophilus (PROBIOTIC) 10 billion cell cap Take by mouth. Prebiotic diphenhydramine HCl (BENADRYL ALLERGY ORAL) Take 2 tablets by mouth every 12 hours as needed. carboxymethylcellulose sodium (ARTIFICIAL TEARS, CMC, OPHTHALMIC) Use in eyes. sodium chloride (SALINE MIST) 0.65 % nasal spray Use 1 [place] in the nose as needed. potassium chloride ER (K-DUR, KLOR-CON) 10 mEq tablet TAKE 2 TABLETS TWICE DAILY simvastatin (ZOCOR) 40 mg tablet TAKE 1 TABLET EVERY DAY AT BEDTIME tamsulosin (FLOMAX) 0.4 mg TAKE 1 CAPSULE EVERY DAY Ibandronate 150 mg tablet TAKE 1 TABLET ONE TIME PER MONTH albuterol HFA (PROVENTIL HFA, VENTOLIN HFA) 90 mcg/actuation inhaler Inhale 2 Puffs as instructed every 4 hours as needed for wheezing/shortness of breath. cholecalciferol (VITAMIN D) 1,000 unit tab tablet Take 1 tablet by mouth once daily. guaiFENesin (MUCINEX) 600 mg 12 hr tablet Take 1 tablet by mouth every 12 hours as needed (cough). (Patient taking differently: Take 600 mg by mouth twice daily.) OTC PRODUCT Super snooze night time sleep cetirizine (ZYRTEC) 10 mg tablet Take 10 mg by mouth once daily. omega-3/dha/epa/dpa/fish oil (OMEGA-3 2100 ORAL) Take by mouth. Orlistat (KUSUM) 60 mg capsule Take 120 mg by mouth twice daily with meals. POLYETHYLENE GLYCOL 3350 (MIRALAX ORAL) Take by mouth. Acetaminophen 500 mg cap Take 2 tablets by mouth twice daily. aspirin, enteric coated (ASPIRIN, ENTERIC COATED) 81 mg EC tablet Take 81 mg by mouth once daily. docusate sodium (COLACE) 100 mg capsule Take 300 mg by mouth once daily. Social History Tobacco Use Smoking status: Former Packs/day: 1.00 Years: 25.00 Pack years: 25.00 Types: Cigarettes Quit date: 02/27/1987 Years since quittin.0 Smokeless tobacco: Never Tobacco comments: Former smoker; Tobacco reviewed with patient 08/30/2015 Vaping Use Vaping Use: Never used Substance Use Topics Alcohol use: No Comment: Non-drinker Drug use: No Comment: No reported history Pets: 2 cats, parrot, parakeets, finches FAMILY HISTORY Problem Relation Age of Onset Prostate Cancer Father other (Uterine cancer) Father other (Myocardial infarction) Father Prostate Cancer Paternal Grandmother Prostate Cancer Paternal Uncle Diabetes Other other (Neck cancer) Brother PAST SURGICAL HISTORY Procedure Laterality Date ARTHRP KNE CONDYLE&PLATU MEDIAL&LAT COMPARTMENTS Bilateral CARPAL TUNNEL Left 02/09/2014 SECTION HX [facility] 1986 COLONOSCOPY Removal of polyps, [facility] 01/2013 F LITHOTRIPSY [facility], 8mm kidney stone, rt side w/ stent placement 2013 F TOTAL ABDOMINAL HYSTERECTOMY OPPONENSPLASTY SUPFCIS TDN TR TYP EA TDN Left PMH, Social history, family history and surgical history reviewed and updated in EMR REVIEW OF SYSTEMS: CONSTITUTIONAL: No fevers, chills, nightsweats, unintended weight loss, or fatigue HEENT: Denies nasal congestion/sinus symptoms CARDIOVASCULAR: No chest pain, palpitations, orthopnea, PND. Some edema PULM: See HPI GI: No dysphagia/odynophagia, problematic reflux INTEGUMENTARY: No new skin changes or rashes PHYSICAL EXAMINATION: Wt 219 lb (99.3kg) BP 118/66, pulse 89, RR 19, SPO2 97% on room air General Appearance: Morbidly obese female, NAD Skin: Skin color, texture, turgor normal, no suspicious rashes or lesions. Head: Normocephalic, no masses, lesions, tenderness or abnormalities. Eyes: Sclera, conjunctiva normal Neck: No JVD, no masses, no adenopathy Lungs: Not labored, normal to percussion, no wheezes or crackles Heart: Regular rate and rhythm, soft systolic murmur, no gallops Extremities: Mild edema, no clubbing Assessment/Plan: 1. Hypersensitivity pneumonitis -Clinical history and chest CT findings most consistent with chronic hypersensitivity pneumonitis now with fibrosis -To prevent further decline in lung function and progression of fibrosis needs to eliminate birds from her home. Patient is unwilling to do so at this time -Due for updated pulmonary function test -Course of steroids 2. ILD -See #1. Fibrotic changes likely due to chronic hypersensitivity pneumonitis -Would not be unreasonable to perform bronchoscopy with biopsy/[employer] genomic thermostat repairer to rule out UIP as treatment with antifibrotic therapy may be warranted -Patient declining at this time 3. Chronic hypoxemic respiratory failure -Patient instructed to wear her oxygen Nehal Calle MD [facility] Miscellaneous Notes* Telephone Encounter - Whit Mandujano MA - 03/07/2022 1:55 PM EST Patient requesting refills: Last office visit 01/16/2022. Last refill 01/16/2022 nov 04/18/2022 Requested Prescriptions Pending Prescriptions Disp Refills oxyCODONE-acetaminophen (PERCOCET) 5-325 mg tablet 90 tablet 0 Sig: Take 1 tablet by mouth every 8 hours as needed for pain for up to 30 days. Please review and advise. Whit Mandujano MA documented in this encounterDetw[facility]01-16-2023 Miscellaneous Notes* Telephone Encounter - Roberto Willis MA - 03/06/2022 8:12 AM EST pharmacy electronically requesting refills as follows: Last seen 01/16/22 . Last refill 01/20/22 . Requested Prescriptions Pending Prescriptions Disp Refills triamcinolone acetonide (KENALOG) 0.1 % ointment [Pharmacy Med Name: TRIAMCINOLONE ACETONIDE 0.1 % Ointment] 80 g 0 Sig: APPLY TO AFFECTED AREA TWICE DAILY NEEDED Please review and advise. Roberto Willis MA documented in this encounterDet[facility]12-30-2022 Miscellaneous Notes* Telephone Encounter - Whit Mandujano MA - 02/17/2022 9:32 AM EST Patient notified. Please process referral. Thanks. Whit Mandujano MA * Telephone Encounter - Ally Espinosa DO - 02/16/2022 9:10 PM EST Both referrals attached Ally Espinosa DO * Telephone Encounter - Roberto Willis MA - 02/16/2022 2:27 PM EST Spoke with patient and she states she does not know the diagnosis exactly. States she saw Dr. Meredith and he did a thorough exam and referred her to Dr. Bill because she is still having blurred vision and cannot see and Dr. Bill may do laser eye surgery to help the situation. Roberto Willis MA * Telephone Encounter - Roberto Willis MA - 02/16/2022 11:55 AM EST Left message requesting patient call office back. Roberto Willis MA * Telephone Encounter - Ally Espinosa DO - 02/16/2022 7:19 AM EST Please find out what the diagnosis is for the patient's eyes for which she needs the referal. Thanks.Ally Espinosa DO * Telephone Encounter - Roberto Willis MA - 02/15/2022 2:03 PM EST Patient left message requesting referral to Dr. Meredith/Dr. Bill because she saw Dr. Meredith yesterdayand then she will need to see Dr. Bill for laser eye surgery. Please advise on referral. Roberto Willis MA documented in this encounterDet[facility]12-28-2022 Miscellaneous Notes* Telephone Encounter - Whit Mandujano MA - 02/15/2022 7:21 AM EST Pharmacy requesting refills: Last office visit 01/16/2022. Last refill 07/13/2021 nov 04/18/2022 Requested Prescriptions Pending Prescriptions Disp Refills montelukast (SINGULAIR) 10 mg tablet [Pharmacy Med Name: MONTELUKAST SODIUM 10 MG Tablet] 90 tablet1 Sig: TAKE 1 TABLET AT BEDTIME Please review and advise. Whit Mandujano MA documented in this encounterDetw[facility]12-20-2022 Miscellaneous Notes* Telephone Encounter - Whit Mandujano MA - 02/07/2022 1:25 PM EST Lm on vm for patient to contact office. Whit Mandujano MA * Telephone Encounter - Ally Espinosa DO - 02/07/2022 12:11 PM EST Order attached Ally Espinosa DO * Telephone Encounter - Roberto Willis MA - 02/03/2022 7:53 AM EST ----- Message from Whit Mandujano MA sent at 01/06/2022 7:26 AM EST ----- Remind patient time to recheck uric acid. Whit Mandujano MA * Telephone Encounter - Roberto Willis MA - 02/03/2022 7:51 AM EST ----- Message from Whit Mandujano MA sent at 01/04/2022 12:38 PM EST ----- Remind pt. Time to recheck vitamin d . Whit Mandujano MA Telephone encounter 01/04/2022 documented in this encounterDetw[facility]12-13-2022 History of Present illness Narrative* Deepika Hernández DO - 01/31/2022 12:57 PM EST [facility] Established Rosalba Abebe [id number] PCP: Ally Espinosa DO Primary Fabrication Department Supervisor: None CHRISTIANO 08/10/2021 ASSESSMENT AND RECOMMENDATIONS Shortness of breath: - SOB is better since inhaler and diuretics - likely multifactorial as patient has history of COPD/bronchectasis/pulmonary fibrosis and historyof mild aortic stenosis - NTProBNP non-diagnostic for age at 89 - Patient taking Lasix 40 mg BID - Echo showed EF 61% with mild concentric LVH and grade II diastolic dysfunction. Mitral valve with2+ regurg - which is not significantly changed from previous. Her diastolic dysfunction has worsened since her last echo in 2019. - MPI 11/23/21 is normal - Low salt diet reviewed. - On O2 - pulm is also following. Bilateral lower extremity edema - Doing better - Low salt diet reviewed. Hypertension - blood pressure optimally controlled - Propanolol was increased this admission to 40 mg TID Mitral Valve Regurgitation - Echo 04/04/2021 showed 2+ MV regurgitation - Unchanged from echo in 2019 Severe SAM Did not tolerate CPAP On 3L O2 HS and prn O2< 89 during day (! 2-3 times a week) This is a 70 year old female with h/o HTN, HLD, TIA, COPD/asthma presented for hospital admit 03/2021 with SOB x 1-2 weeks with GAMBOA along with mild orthopnea. She did respond to diuretics in hospital and is doing better. She has some atypical chest pain and we repeated her stress test with nuclear imaging 11/23/2021 and this was normal with no evidence of ischemia or infarction. I had a long discussion regarding her cardiac status and explained diastolic dysfunction in detail.She does not appear to have fluid overload at this time but should continue diuretics as prior. HerSOB continues despite being euvolemic. She is deconditioned along with her primary pulmonary disease contributing. I did urge her to follow up for her severe untreated SAM also. She will continue to take diuretics as discussed and also continue with risk factor modification. If her chest discomfort is worse she will let us know. She does not exercise due to orhtopedic painbut will try to do the best she can Thank you for allowing me the privilege of participating in the care of your patient. Please do nothesitate to contact me if there are any questions. Deepika Hernández, DO, FACC, FCCP, FACOI PAST MEDICAL HISTORY PAST MEDICAL HISTORY Diagnosis Date Anemia due to vitamin B12 deficiency due to dietary causes Benign essential hypertension Bone pain Chest pain possibly cardiac, continue baby aspirin daily Colon cancer screening 06/2016 cologuard test negative Electrocardiogram abnormal order for nuclear stress test to be done at [facility] Essential hypertension continue meds Fatty liver 11/2015 Fibromyalgia GERD (gastroesophageal reflux disease) take pantoprazole first thing in the morning on an empty stomach, at least 1/2 hour before eating Hyperlipidemia Insomnia Joint pain Kidney stone change tamsulosin to as needed Left flank pain Migraine consider trial of imitrex after stress test is completed and if it is wnl Mini stroke 2016 Morbid obesity (HCC) Multiple joint pain Multiple lacunar infarcts (HCC) Obesity, unspecified Obstructive sleep apnea syndrome Unable to tolerate positive airway pressure Osteoarthritis of multiple joints s/p B/L TKR Osteopenia 2016 Peripheral neuropathy 02/2016 Pulmonary fibrosis (HCC) Rib fracture Stomach cramps Tremor Vitamin D deficiency PAST SURGICAL HISTORY Procedure Laterality Date ARTHRP KNE CONDYLE&PLATU MEDIAL&LAT COMPARTMENTS Bilateral CARPAL TUNNEL Left 02/09/2014 SECTION HX [facility] 1986 COLONOSCOPY Removal of polyps, [facility] 01/2013 F LITHOTRIPSY [facility], 8mm kidney stone, rt side w/ stent placement 2013 TOTAL ABDOMINAL HYSTERECTOMY OPPONENSPLASTY SUPFCIS TDN TR TYP EA TDN Left FAMILY HISTORY FAMILY HISTORY Problem Relation Age of Onset Prostate Cancer Father other (Uterine cancer) Father other (Myocardial infarction) Father Prostate Cancer Paternal Grandmother Prostate Cancer Paternal Uncle Diabetes Other other (Neck cancer) Brother SOCIAL HISTORY Social History Tobacco Use Smoking status: Former Packs/day: 1.00 Years: 25.00 Pack years: 25.00 Types: Cigarettes Quit date: 02/27/1987 Years since quittin.9 Smokeless tobacco: Never Tobacco comments: Former smoker; Tobacco reviewed with patient 08/30/2015 Vaping Use Vaping Use: Never used Substance Use Topics Alcohol use: No Comment: Non-drinker Drug use: No Comment: No reported history INPATIENT MEDICATIONS No current facility-administered medications for this visit. ALLERGIES ALLERGIES Allergen Reactions Amoxicillin-Pot Cla* Diarrhea, GI Upset Anesthetics - Amide* Other: See Comments BECOMES AGGRESSIVE AND COMBATIVE. STOPS BREATHING DURING SURGERY. Aspirin Vomiting, Other: See Comments Blood in stool , adverse reaction Bee Venom Protein (* Swelling Cortisone Other: See Comments CAUSES PAIN AND BURNING Darvocet-N 100 [Pro* GI Upset, Vomiting Estrogens Other: See Comments ALL HORMONES, HAVE TRIED MANY. GIVES BREAKTHROUGH BLEEDING Influenza Virus Vac* Unknown Iodinated Contrast * Hives, Vomiting ALL DYES Iodine And Iodide C* Swelling Levaquin [Levofloxa* GI Upset E.E.S. Nsaids (Non-Steroid* Unknown Paxil [Paroxetine H* Other: See Comments Weight gain Spider Venom Swelling Trazodone Intolerance Achiness Venom-Wasp Swelling PHYSICAL EXAM There were no vitals taken for this visit. General Appearance: Well developed, Well nourished , Obese and No distress HEENT: PERRLA, EOM's intact and Good dentition Lungs: Decreased breath sounds , Rales and Respiratory effort: normal Heart: Regular rate & rhythm, No Edema and Pulses 2+ Abdomen: Soft, Round, Non-tender and Bowel sounds present Skin: Warm and Dry Musculoskeletal: No deformities Neurologic/Psychiatric: Oriented to time, place & person DATA Laboratory: Cholesterol, Total (mg/dL) Date Value 11/16/2021 153 12/07/2018 155 HDL Cholesterol (mg/dL) Date Value 11/16/2021 70 12/07/2018 71 LDL Cholesterol (mg/dL) Date Value 11/16/2021 59 LDL (mg/dL) Date Value 12/07/2018 57 Triglyceride (mg/dL) Date Value 11/16/2021 119 12/07/2018 133 Hemoglobin A1C (%) Date Value 11/16/2021 6.1 11/08/2012 6.0 MPI 11/23/2021: CONCLUSIONS: 1. SPECT Perfusion Study: Normal. 2. There is no scintigraphic evidence for inducible ischemia. 3. No evidence of scarred myocardium. 4. Left ventricle is normal in size. The left ventricle systolic function is normal. 5. Right ventricle is normal in size. The right ventricle systolic function is normal. 6. This is a low risk scan. Gated Stress IR:3D LVEF % 71 EK12/11/2018 Diagnosis:NORMAL SINUS RHYTHM NORMAL ECG Echocardiogram: 12/17/2018 CONCLUSIONS: - Technically difficult exam due to body habitus. - Exam indication: Chest Pain - The left ventricle is normal in size. Left ventricular systolic function is normal. EF = 63 5% (2D biplane) - The right ventricle is normal in size. Right ventricular systolic function is normal. - The left atrial cavity is severely dilated. - There is moderate (2+) mitral valve regurgitation. Regurgitant orifice area (PISA) is 0.23 cm . - Mild aortic stenosis with Pk/Mn gradients of 27/15 mmHg. LYNSEY is 1.2cm2. - The patient has not had a prior CC echocardiographic exam for comparison. Stress Testin12/25/2018 CONCLUSIONS: 1. SPECT Perfusion Study: Normal. 2. There is no scintigraphic evidence for inducible ischemia. 3. No evidence of scarred myocardium. 4. Functional capacity N/A (pharmacological). 5. Left ventricle is normal in size. The left ventricle systolic function is normal. 6. Right ventricle is normal in size. 7. This is a low risk scan. LVEF % 73 Cardiac Catheterization: None Chest Radiograph: 04/01/2021 IMPRESSION: No definite acute process. Emphysematous and fibrotic changes are again noted. Follow-up with two-view chest exam as indicated. Other Radiology: 04/02/2021 IMPRESSION: No interval change Areas of bronchiectasis and fibrotic change Mosaic attenuation suggesting small airways/small vessels disease Unchanged borderline mediastinal adenopathy, possibly reactive Dilated pulmonary artery suggests pulmonary arterial hypertension. Cholelithiasis. Small hiatal hernia [facility] Miscellaneous Notes* Telephone Encounter - Lynette Rivas MA - 01/20/2022 7:31 AM EST Pharmacy requesting refills as follows: Last Office Visit 11/22/21. Last Refill 12/08/21. Requested Prescriptions Pending Prescriptions Disp Refills triamcinolone acetonide (KENALOG) 0.1 % ointment [Pharmacy Med Name: TRIAMCINOLONE ACETONIDE 0.1 % Ointment] 80 g Sig: APPLY TO AFFECTED AREA TWICE DAILY NEEDED Please review and advise. Lynette Rivas MA documented in this [facility]12-[facility]-2022 Miscellaneous Notes* Telephone Encounter - Roberto Willis MA - 01/19/2022 9:11 AM EST Received fax from [facility] pharmacy stating patient's lorazepam requires prior auth. Went on covermymeds using Diop: [id number] and submitted prior auth. Roberto Willis MA documented in this [facility]11-28-[facility]22 History of Present illness Narrative* Ally Espinosa DO - 01/16/2022 1:19 PM EST Subjective HPI Pt is here for f/u for insomnia She was started on trazodone, but it made her weak and dizzy She is not sleeping wel She does not want to restart temazepam, but needs something to control her pain at night and insomrnia She has severe pain in her feet, between 8-9/10 She fell on 01/04 Her feet gave out from under her; she did not pass out She hit her face and forehead, and had a nosebleed She did not go to the hospital She does not have any new headaches She is seeing Dr. Lino, neurology She was started on pramipexole 0.125 mg daily for tremors Tramadol is not helping her pain She was taking 1 pill twice a day She takes her BP at home, and it has been running in the 120s/50s She is not currently taking antihypertensives ALLERGIES Allergen Reactions Amoxicillin-Pot Cla* Diarrhea, GI Upset Anesthetics - Amide* Other: See Comments BECOMES AGGRESSIVE AND COMBATIVE. STOPS BREATHING DURING SURGERY. Aspirin Vomiting, Other: See Comments Blood in stool , adverse reaction Bee Venom Protein (* Swelling Cortisone Other: See Comments CAUSES PAIN AND BURNING Darvocet-N 100 [Pro* GI Upset, Vomiting Estrogens Other: See Comments ALL HORMONES, HAVE TRIED MANY. GIVES BREAKTHROUGH BLEEDING Influenza Virus Vac* Unknown Iodinated Contrast * Hives, Vomiting ALL DYES Iodine And Iodide C* Swelling Levaquin [Levofloxa* GI Upset E.E.S. Nsaids (Non-Steroid* Unknown Paxil [Paroxetine H* Other: See Comments Weight gain Spider Venom Swelling Trazodone Intolerance Achiness Venom-Wasp Swelling Current Outpatient Medications Medication Sig Dispense Refill hydroxyzine HCl (ATARAX ORAL) Take by mouth. fluticasone-salmeterol (ADVAIR, WIXELA) 250-50 mcg/dose inhaler Inhale 1 Puff as instructed twice daily. 3 Each 3 allopurinol (ZYLOPRIM) 300 mg tablet Take 1 tablet by mouth once daily. 90 tablet 1 ergocalciferol 50,000 unit capsule (VITAMIN D2, DRISDOL) Take 1 capsule by mouth one time a week. Use as directed. 4 capsule 1 isosorbide mononitrate ER (IMDUR) 30 mg 24 hr tablet Take 0.5 tablets by mouth once daily. 30 tablet 3 furosemide (LASIX) 40 mg tablet Take 1.5 tablets by mouth twice daily. 270 tablet 1 sertraline (ZOLOFT) 50 mg tablet Take 1 tablet by mouth once daily. Ipratropium [place] (ATROVENT) 21 mcg (0.03 %) nasal spray USE 1 SPRAY NASALLY TWICE DAILY 30 mL 2 primidone (MYSOLINE) 50 mg tablet Take 100 mg by mouth daily at bedtime. omeprazole (PRILOSEC) 40 mg capsule TAKE 1 CAPSULE EVERY DAY 90 capsule 1 Deandra, Zingiber officinalis, (DEANDRA EXTRACT) 250 mg cap Take 450 mg by mouth once daily. Lactobacillus acidophilus (PROBIOTIC) 10 billion cell cap Take by mouth. Prebiotic diphenhydramine HCl (BENADRYL ALLERGY ORAL) Take 2 tablets by mouth every 12 hours as needed. carboxymethylcellulose sodium (ARTIFICIAL TEARS, CMC, OPHTHALMIC) Use in eyes. sodium chloride (SALINE MIST) 0.65 % nasal spray Use 1 [place] in the nose as needed. potassium chloride ER (K-DUR, KLOR-CON) 10 mEq tablet TAKE 2 TABLETS TWICE DAILY 360 tablet 1 simvastatin (ZOCOR) 40 mg tablet TAKE 1 TABLET EVERY DAY AT BEDTIME 90 tablet 1 tamsulosin (FLOMAX) 0.4 mg TAKE 1 CAPSULE EVERY DAY 90 capsule 1 montelukast (SINGULAIR) 10 mg tablet TAKE 1 TABLET AT BEDTIME 90 tablet 1 Ibandronate 150 mg tablet TAKE 1 TABLET ONE TIME PER MONTH 3 tablet 3 albuterol HFA (PROVENTIL HFA, VENTOLIN HFA) 90 mcg/actuation inhaler Inhale 2 Puffs as instructed every 4 hours as needed for wheezing/shortness of breath. 1 Inhaler 1 cholecalciferol (VITAMIN D) 1,000 unit tab tablet Take 1 tablet by mouth once daily. guaiFENesin (MUCINEX) 600 mg 12 hr tablet Take 1 tablet by mouth every 12 hours as needed (cough). (Patient taking differently: Take 600 mg by mouth twice daily.) 30 tablet 0 OTC PRODUCT Super snooze night time sleep cetirizine (ZYRTEC) 10 mg tablet Take 10 mg by mouth once daily. omega-3/dha/epa/dpa/fish oil (OMEGA-3 2100 ORAL) Take by mouth. Orlistat (KUSUM) 60 mg capsule Take 120 mg by mouth twice daily with meals. POLYETHYLENE GLYCOL 3350 (MIRALAX ORAL) Take by mouth. Acetaminophen 500 mg cap Take 2 tablets by mouth twice daily. aspirin, enteric coated (ASPIRIN, ENTERIC COATED) 81 mg EC tablet Take 81 mg by mouth once daily. docusate sodium (COLACE) 100 mg capsule Take 300 mg by mouth once daily. pramipexole (MIRAPEX) 0.125 mg tablet triamcinolone acetonide (KENALOG) 0.1 % ointment No current facility-administered medications for this visit. ACTIVE PROBLEM LIST Hyperlipidemia Gout With Manifestations Chronic Low Back Pain Without Sciatica Elevated Alkaline Phosphatase Level Bilateral Leg Edema Kidney Stones Chronic Insomnia Peripheral Polyneuropathy Lung Nodules Vitamin D Deficiency Vitamin B12 Deficiency [place] (Generalized Anxiety Disorder) Status Post Total Left Knee Replacement Status Post Total Right Knee Replacement Lumbar Degenerative Disc Disease Spinal Stenosis of Lumbar Region With Neurogenic Claudication Paget's Disease of Bone Diverticulitis Gallstones Compression Fracture of Body of Thoracic Vertebra ([facility]) Primary Osteoarthritis Involving Multiple Joints Seasonal Allergies Dermatitis Morbid Obesity With Bmi of 40.0-44.9, Adult ([facility]) Mild Intermittent Asthma, Uncomplicated Hypertension, Essential Nonrheumatic Aortic Valve Stenosis Nonrheumatic Mitral Valve Regurgitation Gerd With Esophagitis Pulmonary Fibrosis ([facility]) Nocturnal Hypoxia Chronic Diastolic Chf (Congestive Heart Failure) ([facility]) Chronic Respiratory Failure With Hypoxia ([facility]) Hypertensive Heart Disease With Chronic Diastolic Congestive Heart Failure ([facility]) Bmi 40.0-44.9, Adult ([facility]) Social History Tobacco Use Smoking status: Former Packs/day: 1.00 Years: 25.00 Pack years: 25.00 Types: Cigarettes Quit date: 02/27/1987 Years since quittin.9 Smokeless tobacco: Never Tobacco comments: Former smoker; Tobacco reviewed with patient 08/30/2015 Vaping Use Vaping Use: Never used Substance Use Topics Alcohol use: No Comment: Non-drinker Drug use: No Comment: No reported history Family History Problem Relation Age of Onset Prostate Cancer Father other (Uterine cancer) Father other (Myocardial infarction) Father Prostate Cancer Paternal Grandmother Prostate Cancer Paternal Uncle Diabetes Other other (Neck cancer) Brother Reviewed past medical history, family history and surgeries. All medications and supplements were reviewed with the patient. Review of Systems Constitutional: Negative for chills, diaphoresis, fever, malaise/fatigue and weight loss. HENT: Negative for ear pain and hearing loss. Eyes: Negative for blurred vision and double vision. Respiratory: Negative for cough and shortness of breath. Cardiovascular: Negative for chest pain, palpitations and leg swelling. Gastrointestinal: Negative for constipation, diarrhea and heartburn. Genitourinary: Negative for dysuria and frequency. Musculoskeletal: Negative for back pain, falls, joint pain and myalgias. B/l foot pain Skin: Negative for itching and rash. Neurological: Positive for tremors, sensory change and weakness. Negative for dizziness and headaches. Endo/Heme/Allergies: Does not bruise/bleed easily. Psychiatric/Behavioral: Negative for depression and substance abuse. The patient is nervous/anxiousand has insomnia. Objective BP 146/82 Pulse 92 Temp 36.9 C (98.4 F) Ht 157.5 cm (5' 2) Wt 102.5 kg (226 lb) SpO2 94% BMI 41.34 kg/m Physical Exam Constitutional: Appearance: Normal appearance. She is obese. HENT: Head: Normocephalic and atraumatic. Nose: Nose normal. Mouth/Throat: Mouth: Mucous membranes are moist. Dentition: Normal dentition. Eyes: General: Lids are normal. Extraocular Movements: Extraocular movements intact. Conjunctiva/sclera: Conjunctivae normal. Pupils: Pupils are equal, round, and reactive to light. Neck: Thyroid: No thyroid mass or thyromegaly. Vascular: No carotid bruit. Trachea: Phonation normal. Cardiovascular: Rate and Rhythm: Normal rate and regular rhythm. Heart sounds: Normal heart sounds. No murmur heard. No friction rub. No gallop. Pulmonary: Effort: Pulmonary effort is normal. Breath sounds: Normal breath sounds. No wheezing or rales. Abdominal: General: Bowel sounds are normal. There is no distension. Palpations: Abdomen is soft. There is no mass. Tenderness: There is no abdominal tenderness. Musculoskeletal: General: No swelling or tenderness. Normal range of motion. Cervical back: Normal range of motion and neck supple. No edema. Lymphadenopathy: Cervical: No cervical adenopathy. Skin: General: Skin is warm and dry. Findings: No erythema or rash. Nails: There is no clubbing. Neurological: Mental Status: She is alert and oriented to person, place, and time. Cranial Nerves: No cranial nerve deficit. Motor: Motor function is intact. Coordination: Coordination normal. Gait: Gait is intact. Psychiatric: Attention and Perception: Attention normal. Mood and Affect: Mood and affect normal. Speech: Speech normal. Behavior: Behavior normal. Behavior is cooperative. Thought Content: Thought content normal. Cognition and Memory: Cognition and memory normal. Judgment: Judgment normal. ASSESSMENT/PLAN: 1. Chronic insomnia - ICD9: 780.52, ICD10: F51.04 (primary diagnosis) Pt will not restart temazepam Cannot tolerate trazodone - LORAZEPAM 0.5 MG TABLET 2. Tremors of nervous system - ICD9: 781.0, ICD10: R25.1 Under the care of Dr. Lino, neuro - PRAMIPEXOLE 0.125 MG TABLET 3. Chronic bilateral low back pain without sciatica - ICD9: 724.2, 338.29, ICD10: M54.50, G89.29 Tramadol not working Trial of percocet - OXYCODONE-ACETAMINOPHEN 5 MG-325 MG TABLET 4. ULYSSES (generalized anxiety disorder) - ICD9: 300.02, ICD10: F41.1 - ATARAX ORAL 5. BMI 40.0-44.9, adult (HCC) - ICD9: V85.41, ICD10: Z68.41 Lifestyle modification recommended 6. Morbid obesity with BMI of 40.0-44.9, adult (HCC) - ICD9: 278.01, V85.41, ICD10: E66.01, Z68.41 Lifestyle modification recommended 7. Peripheral polyneuropathy - ICD9: 356.9, ICD10: G62.9 Under the care of neurologist, Dr. Holland Espinosa DO PDMP website checked and validated. All prescriptions have been APPROPRIATELY filled. No suspiciousactivity was identified. 01/16/2022 by Ally Espinosa DO documented [facility]11-16-2022 Miscellaneous Notes* Telephone Encounter - Roberto Willis MA - 01/04/2022 3:27 PM EST [employer] message sent to patient informing of Dr. Espinosa note. Roberto Willis MA * Telephone Encounter - Whit Mandujano MA - 01/04/2022 12:37 PM EST All information left on patients voicemail. Advised patient to call back to let us know she is willing to go back on allopurinol. Reminder placed. Whit Mandujano MA * Telephone Encounter - Ally Espinosa DO - 01/04/2022 10:09 AM EST Please call pt - vitamin d is slightly low and uric acid is elevated. I would like for her to take vitamin d 50,000 international unit(s) weekly and we will recheck vitamin d in one month. Also, would she like to go back on allopurinol to lower her uric acid so she does not have a gout flare up. Also, please let her know I got her phone message and I am not upset with her. Ally Espinosa DO documented in [facility]11-07-2022 Miscellaneous Notes* Telephone Encounter - Whit Mandujano MA - 12/26/2021 9:31 AM EST Patient notified. Whit Mandujano MA * Telephone Encounter - Ally Espinosa DO - 12/24/2021 8:06 AM EDT Order for vit d attached - other labs not needed at this time Ally Espinosa DO * Telephone Encounter - Roberto Willis MA - 12/23/2021 7:32 AM EDT ----- Message from Whit Mandujano MA sent at 11/22/2021 4:25 PM EDT ----- Remind pt. Time to recheck vitamin D. CBC, and uric acid. Whit Mandujano MA documented in this [facility]10-27-2022 Miscellaneous Notes* Telephone Encounter - Lynette Rivas MA - 12/15/2021 2:32 PM EDT Left message informing patient, phone number to reach the office was left for any questions or concerns. Lynette Rivas MA * Telephone Encounter - Ally Espinosa DO - 12/15/2021 2:27 PM EDT Order placed Ally Espinosa DO * Telephone Encounter - Katie Gonsalez - 12/15/2021 12:29 PM EDT The patient stopped by [facility] today. She thought that at her last office visit on 11/22/21, that she was suppose to do a uric acid blood test. Please advise patient. Katie Gonsalez documented in this [facility]Det[facility]10-26-2022 Miscellaneous Notes* Telephone Encounter - Roberto Willis MA - 12/14/2021 3:05 PM EDT Patient informed of medication change. Roberto Willis MA * Telephone Encounter - Roberto Willis MA - 12/13/2021 5:24 PM EDT Left message requesting patient call office back. Roberto Willis MA * Telephone Encounter - Ally Espinosa DO - 12/13/2021 4:21 PM EDT Please call pt- her insurance has notified me that she should not be taking temazepam with the sertraline and tramadol because it can cause confusion and increase her risk of falling. I can call in trazodone for sleep which is safer, and then she can continue her other medications. Rx for trazodonesent to pharmacy Ally Espinosa DO documented in this [facility]Det[facility]10-24-2022 Miscellaneous Notes* Telephone Encounter - Roberto Willis MA - 12/12/2021 5:08 PM EDT [facility] clarification needed for Temazepam placed in Dr. Silvano montaño folder to be filled out. Roberto Willis MA * Telephone Encounter - Roberto Willis MA - 12/12/2021 5:04 PM EDT pharmacy faxes requesting refills as follows: Last seen 11/22/21 . Last refill 08/24/21 . Requested Prescriptions Pending Prescriptions Disp Refills temazepam (RESTORIL) 30 mg cap 90 capsule 0 Sig: Take 1 capsule by mouth at bedtime as needed for up to 90 days. Please review and advise. Roberto Willis MA documented in this [facility]10-17-2022 Miscellaneous Notes* Telephone Encounter - Roberto Willis MA - 12/05/2021 7:33 AM EDT pharmacy electronically requesting refills as follows: Last seen 11/22/21 . Last refill 09/21/21 . Requested Prescriptions Pending Prescriptions Disp Refills BREO ELLIPTA 200-25 mcg/dose inhaler [Pharmacy Med Name: BREO ELLIPTA 200-25 MCG/ACT Aerosol PowderBreath Activated] Sig: INHALE 1 PUFF ONE TIME DAILY DIRECTED Please review and advise. Roberto Willis MA documented in this [facility]10-05-2022 NoteHNO ID: [id number] Author: NICKOLAS Blair Service: Nuclear Medicine Author Type: Technologist Type: Progress Notes Filed: 11/23/2021 11:16 AM Note Text: RADIOLOGY SERVICE PROGRESS NOTE SERVICE DATE: 11/23/2021 SERVICE TIME: 11:10 AM PATIENT IDENTITY VERIFICATION COMPLETED USING TWO (2) STANDARD IDENTIFIERS: Name and Date of confirmed by patient verbally and Name and Date of confirmed by identification band FALL SCREENING: Has the patient had 2 falls in the last year or 1 fall with injury or currently using an Ambulatory Assistive Device (Walker, Cane, Wheelchair, Crutches, etc.)? Yes, Patient High Risk for Falls What interventions were put in place to prevent falls during this visit? Instructed Patient to Call for Help if Needed and Increased Observations by Caregivers PATIENT GENDER DATA: .female : No ALLERGIES: Reviewed and unchanged MEDICATIONS REVIEWED: Not applicable PATIENT RELEVANT IMPLANT DATA REVIEWED: Not Applicable CREATININE: Creatinine Date Value Ref Range Status 10/13/2021 0.72 0.58 - 0.96 mg/dL Final 09/28/2021 0.77 0.58 - 0.96 mg/dL Final 05/13/2021 0.76 0.58 - 0.96 mg/dL Final Estimated Glomerular Filtration Rate Date Value Ref Range Status 10/13/2021 90 >=60 mL/min/1.73m? Final Comment: Estimated Glomerular Filtration Rate (eGFR) is calculated using the 2020 CKD-EPI creatinine equation. This equation utilizes serum creatinine, sex, and age as parameters. The creatinine assay has traceable calibration to isotope dilution-mass spectrometry. Refer to KDIGO guidelines for clinical interpretation. In patients with unstable renal function, e.g. those with acute kidney injury, the eGFR may not accurately reflect actual GFR. eGFR- Date Value Ref Range Status 04/05/2021 >60 Final P.O.C.T. RESULTS: N/A November 23, [address] PERFORMED: No IV SITE: Ambulatory: A peripheral IV was started in the Left forearm with a Angio cath: 22 gauge. POST EXAM PIV STATUS: Discontinued PROCEDURE TYPE: NM Stress: 15.6 mCi [id number] was administered IV for Rest Imaging at 09:34 by . 44.3 mCi [id number] was administered IV for Stress Imaging at 10:21 by . PATIENT DISCHARGED TO: Ambulatory patient, left [place] department area. A Diagnostic radioactive procedure has taken place, with no further precautions necessary other than routine body substance precautions. More information regarding radiation safety can be found using this link: [email or web address] SIGNATURE: NICKOLAS Blair PATIENT NAME: Rosalba Abebe DATE: November 23, 2021 TIME: 11:10 AM [id number] History of Present illness Narrative* NICKOLAS Blair - 11/23/2021 9:30 AM EDT RADIOLOGY SERVICE PROGRESS NOTE SERVICE DATE: 11/23/2021 SERVICE TIME: 11:10 AM PATIENT IDENTITY VERIFICATION COMPLETED USING TWO (2) STANDARD IDENTIFIERS: Name and Date of confirmed by patient verbally and Name and Date of confirmed by identification band FALL SCREENING: Has the patient had 2 falls in the last year or 1 fall with injury or currently using an Ambulatory Assistive Device (Walker, Cane, Wheelchair, Crutches, etc.)? Yes, Patient High Riskfor Falls What interventions were put in place to prevent falls during this visit? Instructed Patient to Callfor Help if Needed and Increased Observations by Caregivers PATIENT GENDER DATA: .female : No ALLERGIES: Reviewed and unchanged MEDICATIONS REVIEWED: Not applicable PATIENT RELEVANT IMPLANT DATA REVIEWED: Not Applicable CREATININE: Creatinine Date Value Ref Range Status 10/13/2021 0.72 0.58 - 0.96 mg/dL Final 09/28/2021 0.77 0.58 - 0.96 mg/dL Final 05/13/2021 0.76 0.58 - 0.96 mg/dL Final Estimated Glomerular Filtration Rate Date Value Ref Range Status 10/13/2021 90 >=60 mL/min/1.73m Final Comment: Estimated Glomerular Filtration Rate (eGFR) is calculated using the 2020 CKD-EPI creatinine equation. This equation utilizes serum creatinine, sex, and age as parameters. The creatinine assay has traceable calibration to isotope dilution- mass spectrometry. Refer to KDIGO guidelines for clinical interpretation. In patients with unstable renal function, e.g. those with acute kidney injury, the eGFRmay not accurately reflect actual GFR. eGFR- Date Value Ref Range Status 04/05/2021 >60 Final P.O.C.T. RESULTS: N/A November 23, [address] PERFORMED: No IV SITE: Ambulatory: A peripheral IV was started in the Left forearm with a Angio cath: 22 gauge. POST EXAM PIV STATUS: Discontinued PROCEDURE TYPE: NM Stress: 15.6 mCi [id number] was administered IV for Rest Imaging at 09:34 by . 44.3 mCi [id number] was administered IV for Stress Imaging at 10:21 by . PATIENT DISCHARGED TO: Ambulatory patient, left [place] department area. A Diagnostic radioactive procedure has taken place, with no further precautions necessary other than routine body substance precautions. More information regarding radiation safety can be found usingthis link: [email or web address] SIGNATURE: NICKOLAS Blair PATIENT NAME: Rosalba Abebe DATE: November 23, 2021 TIME: 11:10 AM PAGER/CONTACT #: documented in this encounterDet[facility]22 Miscellaneous Notes* Telephone Encounter - Whit Mandujano MA - 11/22/2021 4:25 PM EDT Reminder placed. Whit Mandujano MA * Telephone Encounter - Whit Mandujano MA - 11/22/2021 4:24 PM EDT ----- Message from Ally Espinosa DO sent at 11/22/2021 1:32 PM EDT ----- Please put in reminder for pt to have vitamin d, cbc, uric acid in one month Ally Espinosa DO documented in this encounterDetwiler [facility]09-29-2022 History of Present illness Narrative* Puneet Quevedo MD - 11/17/2021 10:59 PM EDT E-Consult Response Thank you Dr. Calle for the E-Consult. In response to your eConsult request to [facility] for Rosalba Abebe regarding Chest CTchanges if related to IPF. History of present illness provided through requesting provider documentation and current treatmentplan was reviewed. Chest CT dated 11/08/21, 10/04/2020, 10/29/2017, 08/25/2015 reviewed and analyzed Personal review showing diffuse (upper lobe) predominant subpleural reticulation, traction bronchiectasis, mosaic attenuation. No honeycombing. Noted progression of fibrosis from 2016 to now mostly on upper lobes. PFT dated reviewed. Restriction pattern. FVC 56% pred. Pertinent labs; IVAN + 1:160, p-ANCA+, negative CARY ID, Chest CT dated 11/08/21 IMPRESSION: Fibrotic changes in the bilateral lungs, similar to prior study. A few borderline or mildly enlarged mediastinal lymph nodes, likely reactive. Abdominal findings as described above. Lung parenchyma and airways: The central airways are patent. There are fine reticular opacities in the bilateral lungs predominantly located in the peripheral areas, with involvement of immediate subpleural regions. There are multiple groundglass opacities in the bilateral lungs or mosaic pattern of attenuations. Traction bronchiectasis is visualized, with some architectural distortion; however no honeycombing. No mass lesion identified. Pleural space: No pleural effusion or pneumothorax. No pleural thickening. Lower neck, lymph nodes, and mediastinum: Stable thyroid gland. No supraclavicular or axillary lymphadenopathy. There are a few borderline or mildly enlarged mediastinal lymph nodes, without progressive lymphadenopathy. Based on the patient history provided, my impression is as follows: 71 yo F prior smoking history,morbid obesity, asthma, GERD, HLD, SAM, ECHO with RVSP 43, RAP 8, LVEF 61%, DD stage 2. Chest CT dated 11/08/21, 10/04/2020, 10/29/2017, 08/25/2015 reviewed and analyzed Personal review showing diffuse (upper lobe) predominant subpleural reticulation, traction bronchiectasis, mosaic attenuation. No honeycombing. Noted progression of fibrosis from 2016 to now mostly on upper lobes. Differentials include progressing fibrotic ILD, including Fibrotic HP (mosaic attenuation, upper lobe predominant reticulation), IPAF (IVAN+, p-ANCA), IPF is also in differential although likely undetermined pattern (no honeycombing). Given the complexity of the evaluation, I can assist to arrange an appointment with the ILD group if you feel is needed. I am cc'ing to Dr. Caro (ILD group) for assistance as well. I suggest adding Hypersensitivity panel 1 and 2 ([address] on Order: HYPERSEN PNEUMON AB HYPERSEN PNEUMO EVAL 2), You might need to change context to Main Pulm to see the option for hypersensitivity panel 2. Also it will help to obtain 6MWT with oxymetry and ambulation. Please reach out to me if you want to help facilitate an appointment with the ILD group. Ideally the patient should be informed so the scheduling team can reach out to coordinate the appointment. Best regards E-Consult follow up recommendation:An appointment will be coordinated by [facility] after confirmation by Dr. Simon Quevedo MD November 17, 2021 documented in this encounterDetwiler [facility]09-29-2022 History of Present illness Narrative* Nehal Calle MD - 11/17/2021 2:15 PM EDT Images from the original note were not included. . [facility] Note Patient name: Rosalba Abebe PCP: Ally Espinosa DO CC: cough HPI: Rosalba Abebe 71 year old female former smoker having quit in 1987 with PMH significant for morbid obesity, HTN, hepatic steatosis, asthma, allergies on immunotherapy, GERD, HLD, SAM (not on CPAP) admitted to [facility] with acute hypoxemic respiratory failure due to congestive heart failure. CT of the chest showed peripheral reticular markings, not quite typical of UIP/IPF, mosaic attenuation and mild bronchiectasis. Required oxygen at discharge and started on inhaled therapy. Autoimmune serologies significant for positive p-ANCA but negative MPO/DE-3 and positive IVAN at 1:160. Concerns for early IPF. Unable to monitor pulmonary function testing for decline in restrictive defectdue to her concomitant obesity. She presents today for review of her CT of her chest which shows persistent reticulations, traction bronchiectasis without significant honeycombing. From a respiratorystandpoint, she has GAMBOA, chronic dry cough. No improvement in cough with cough drops, syrup or Tessalon perles. Wheezing has improved with inhaled therapy. Not using albuterol. No chest pain. Her main concern is related to neurologic issues, neuropathy and tremors. DATA: Labs: Component Ref Range & Units 1 mo ago NT Pro BNP <125 pg/mL 464 High Component Ref Range & Units 1 mo ago (09/28/21) Protein, Total 6.3 - 8.0 g/dL 7.4 Albumin 3.9 - 4.9 g/dL 4.3 Calcium, Total 8.5 - 10.2 mg/dL 10.0 Bilirubin, Total 0.2 - 1.3 mg/dL 0.2 Alkaline Phosphatase 34 - 123 U/L 100 AST 13 - 35 U/L 17 ALT 7 - 38 U/L 12 Glucose 74 - 99 mg/dL 95 Imaging / Diagnostic Studies: DATE OF EXAM: Nov 08 2021 1:48PM [facility] 0541 - CT CHEST WO IVCON / PROCEDURE REASON: Interstitial lung disease EXAMINATION: CHEST CT WITHOUT CONTRAST CLINICAL HISTORY: Interstitial lung disease. Comparison: CT chest on 04/02/2021 RESULT: Limitations: None. Lines, tubes, and devices: None. Lung parenchyma and airways: The central airways are patent. There are fine reticular opacities in the bilateral lungs predominantly located in the peripheral areas, with involvement of immediate subpleural regions. There are multiple groundglass opacities in the bilateral lungs or mosaic pattern of attenuations. Traction bronchiectasis is visualized, with some architectural distortion; however no honeycombing. No mass lesion identified. Pleural space: No pleural effusion or pneumothorax. No pleural thickening. Lower neck, lymph nodes, and mediastinum: Stable thyroid gland. No supraclavicular or axillary lymphadenopathy. There are a few borderline or mildly enlarged mediastinal lymph nodes, without progressive lymphadenopathy. Heart, pericardium, and thoracic vessels: Stable cardiac chambers, thoracic aorta and central pulmonary arteries. No pericardial effusions or thickening. Bones and soft tissues: The chest wall soft tissue has been stable. There are degenerative changes in the spine. A sclerotic focus in the T12 vertebral body likely representing small bone island. Upper abdomen: Limited study through the upper abdomen demonstrates gallbladder stones versus sludge. Banking Pin Adjuster (topogram) images: No additional findings. IMPRESSION: Fibrotic changes in the bilateral lungs, similar to prior study. A few borderline or mildly enlarged mediastinal lymph nodes, likely reactive. Abdominal findings as described above I personally reviewed the images as well as with the patient and agree with the above assessment PAST MEDICAL HISTORY Diagnosis Date Anemia due to vitamin B12 deficiency due to dietary causes Benign essential hypertension Bone pain Chest pain possibly cardiac, continue baby aspirin daily Colon cancer screening 06/2016 cologuard test negative Electrocardiogram abnormal order for nuclear stress test to be done at [facility] Essential hypertension continue meds Fatty liver 11/2015 Fibromyalgia GERD (gastroesophageal reflux disease) take pantoprazole first thing in the morning on an empty stomach, at least 1/2 hour before eating Hyperlipidemia Insomnia Joint pain Kidney stone change tamsulosin to as needed Left flank pain Migraine consider trial of imitrex after stress test is completed and if it is wnl Mini stroke 2016 Morbid obesity (HCC) Multiple joint pain Multiple lacunar infarcts (HCC) Obesity, unspecified Obstructive sleep apnea syndrome Unable to tolerate positive airway pressure Osteoarthritis of multiple joints s/p B/L TKR Osteopenia 2015 Peripheral neuropathy 02/2016 Pulmonary fibrosis (HCC) Rib fracture Stomach cramps Tremor Vitamin D deficiency ALLERGIES Allergen Reactions Amoxicillin-Pot Cla* Diarrhea, GI Upset Anesthetics - Amide* Other: See Comments BECOMES AGGRESSIVE AND COMBATIVE. STOPS BREATHING DURING SURGERY. Aspirin Vomiting, Other: See Comments Blood in stool , adverse reaction Bee Venom Protein (* Swelling Cortisone Other: See Comments CAUSES PAIN AND BURNING Darvocet-N 100 [Pro* GI Upset, Vomiting Estrogens Other: See Comments ALL HORMONES, HAVE TRIED MANY. GIVES BREAKTHROUGH BLEEDING Influenza Virus Vac* Unknown Iodinated Contrast * Hives, Vomiting ALL DYES Iodine And Iodide C* Swelling Levaquin [Levofloxa* GI Upset E.E.S. Nsaids (Non-Steroid* Unknown Paxil [Paroxetine H* Other: See Comments Weight gain Spider Venom Swelling Venom-Wasp Swelling sertraline (ZOLOFT) 25 mg tablet TAKE 1 TABLET EVERY DAY Ipratropium Sewell (ATROVENT) 21 mcg (0.03 %) nasal spray USE 1 SPRAY NASALLY TWICE DAILY primidone (MYSOLINE) 50 mg tablet Take 50 mg by mouth daily at bedtime. furosemide (LASIX) 40 mg tablet Take 1.5 tablets by mouth twice daily. isosorbide mononitrate ER (IMDUR) 30 mg 24 hr tablet Take 0.5 tablets by mouth once daily. omeprazole (PRILOSEC) 40 mg capsule TAKE 1 CAPSULE EVERY DAY fluticasone-vilanterol (BREO ELLIPTA) 200-25 mcg/dose inhaler INHALE 1 PUFF ONE TIME DAILY DIRECTED temazepam (RESTORIL) 30 mg cap Take 1 capsule by mouth at bedtime as needed for up to 90 days. Deandra, Zingiber officinalis, (DEANDRA EXTRACT) 250 mg cap Take 450 mg by mouth once daily. Lactobacillus acidophilus (PROBIOTIC) 10 billion cell cap Take by mouth. Prebiotic diphenhydramine HCl (BENADRYL ALLERGY ORAL) Take 2 tablets by mouth every 12 hours as needed. carboxymethylcellulose sodium (ARTIFICIAL TEARS, CMC, OPHTHALMIC) Use in eyes. sodium chloride (SALINE MIST) 0.65 % nasal spray Use 1 [place] in the nose as needed. potassium chloride ER (K-DUR, KLOR-CON) 10 mEq tablet TAKE 2 TABLETS TWICE DAILY simvastatin (ZOCOR) 40 mg tablet TAKE 1 TABLET EVERY DAY AT BEDTIME tamsulosin (FLOMAX) 0.4 mg TAKE 1 CAPSULE EVERY DAY montelukast (SINGULAIR) 10 mg tablet TAKE 1 TABLET AT BEDTIME Ibandronate 150 mg tablet TAKE 1 TABLET ONE TIME PER MONTH albuterol HFA (PROVENTIL HFA, VENTOLIN HFA) 90 mcg/actuation inhaler Inhale 2 Puffs as instructed every 4 hours as needed for wheezing/shortness of breath. cholecalciferol (VITAMIN D) 1,000 unit tab tablet Take 1 tablet by mouth once daily. guaiFENesin (MUCINEX) 600 mg 12 hr tablet Take 1 tablet by mouth every 12 hours as needed (cough). allopurinol (ZYLOPRIM) 300 mg tablet TAKE 1 TABLET EVERY DAY OTC PRODUCT Super snooze night time sleep cetirizine (ZYRTEC) 10 mg tablet Take 10 mg by mouth once daily. omega-3/dha/epa/dpa/fish oil (OMEGA-3 2100 ORAL) Take by mouth. Orlistat (KUSUM) 60 mg capsule Take 120 mg by mouth twice daily with meals. POLYETHYLENE GLYCOL 3350 (MIRALAX ORAL) Take by mouth. Acetaminophen 500 mg cap Take 2 tablets by mouth twice daily. aspirin, enteric coated (ASPIRIN, ENTERIC COATED) 81 mg EC tablet Take 81 mg by mouth once daily. docusate sodium (COLACE) 100 mg capsule Take 300 mg by mouth once daily. Social History Tobacco Use Smoking status: Former Packs/day: 1.00 Years: 25.00 Pack years: 25.00 Types: Cigarettes Quit date: 02/27/1987 Years since quittin.7 Smokeless tobacco: Never Tobacco comments: Former smoker; Tobacco reviewed with patient 08/30/2015 Vaping Use Vaping Use: Never used Substance Use Topics Alcohol use: No Comment: Non-drinker Drug use: No Comment: No reported history PMH, Social history, family history and surgical history reviewed and updated in EMR REVIEW OF SYSTEMS: CONSTITUTIONAL: No fevers, chills, nightsweats, unintended weight loss HEENT: Denies nasal congestion/sinus symptoms. Allergies controlled with injections CARDIOVASCULAR: No chest pain, palpitations, orthopnea, PND, edema. PULM: See HPI GI: No dysphagia/odynophagia, problematic reflux, constipation, diarrhea NEURO: No new balance problems (ambulates with cane). Peripheral neuropathy, tremors MUSC-SKEL: Joint pain in knees PSY: No concerns regarding depression, anxiety INTEGUMENTARY: No new skin changes or rashes PHYSICAL EXAMINATION: BP 144/82 Pulse 84 Wt 236 lb (107.0kg) SpO2 97% General Appearance: Morbidly obese female, NAD Skin: Skin color, texture, turgor normal, no suspicious rashes or lesions. Head: Normocephalic, no masses, lesions, tenderness or abnormalities. Eyes: Sclera, conjunctiva normal Oropharynx: Upper plate, no thrush Neck: No JVD, no masses, no adenopathy. Back: Kyphosis Lungs: Not labored, normal to percussion, no wheezes or crackles Heart: Regular rate and rhythm, no murmur gallops Extremities: No edema or clubbing. Varicosities Neuro: Alert and oriented, tremors Assessment/Plan: 1. Pulmonary fibrosis -Clinical history and imaging concerning for early IPF. Requesting e-Consult from ILD -Consider anti-fibrotic therapy 2. Mild persistent asthma, uncomplicated -Continue ICS/LABA and as needed albuterol 3. Morbid obesity -Class 3 obesity, BMI 41 -Weight loss advised 4. Chronic hypoxemic respiratory failure -Continue supplemental oxygen Nehal Calle MD [facility] documented in this encounterDet[facility]09-29-2022 Miscellaneous Notes* Telephone Encounter - Whit Mandujano MA - 11/17/2021 7:18 AM EDT pharm requesting refills: Last office visit 08/19/2021. Last refill 05/20/2021 nov 11/22/2021 Requested Prescriptions Pending Prescriptions Disp Refills sertraline (ZOLOFT) 25 mg tablet [Pharmacy Med Name: SERTRALINE HCL 25 MG Tablet] 90 tablet 1 Sig: TAKE 1 TABLET EVERY DAY Please review and advise. Whit Mandujano MA documented in this encounterDetwiler [facility]09-20-2022 History of Present illness Narrative* RT Henry(R) - 11/08/2021 1:20 PM EDT Radiology Service Progress Note PATIENT NAME: Rosalba Abebe DATE OF SERVICE: November 08, 2021 TIME: 1:51 PM PATIENT IDENTITY VERIFICATION COMPLETED USING TWO (2) IDENTIFIERS: Name and Date of confirmedby patient verbally. FALL SCREENING: Has the patient had 2 falls in the last year or 1 fall with injury or currently using an Ambulatory Assistive Device (Walker, Cane, Wheelchair, Crutches, etc.)? No PATIENT GENDER DATA: Female. status: : No status: NO. PATIENT RELEVANT IMPLANT DATA REVIEWED: Yes RADIOLOGY DEPARTMENT: CT; Exam(s) Completed: Chest PERIPHERAL IV DATA: Not applicable SIGNED BY: RT Liza(R) November 08, 2021 1:51 PM documented in this encounterDetwiler [facility]09-14-2022 Miscellaneous Notes* Telephone Encounter - Abbey Hammer RN - 11/02/2021 12:39 PM EDT Reviewed with Dr. Hernández. Pended NM Stress Test. * Telephone Encounter - Abbey Hammer RN - 11/02/2021 12:39 PM EDT ----- Message from Jenelle Campos APRN.CT TECHNICIAN sent at 11/01/2021 10:31 AM EDT ----- Regarding: Stress Test Hi there, Rosalba called to ask about a stress test. During her last appt with Dr. Hernández, she refused a stress test however, after our appt she wishes to move forward. I am not sure what stress test he hadin mind but if you would be able to reach out to him and have him order (or I can certainly put theorder in if he lets you know) and call her to schedule if you're able. She was not sure if she should get a call from stress lab or call in. Thanks for the help! Jenelle Campos APRN.CT TECHNICIAN documented in this encounterDetwiler [facility] Hospital09-09-2022 Miscellaneous Notes* Telephone Encounter - Roberto Willis MA - 10/28/2021 7:48 AM EDT Pharmacy electronically requesting refills as follows: Last seen 08/19/21 . Last refill 03/28/21 . Requested Prescriptions Pending Prescriptions Disp Refills Ipratropium Sewell (ATROVENT) 21 mcg (0.03 %) nasal spray [Pharmacy Med Name: IPRATROPIUM BROMIDE 0.03 % Solution] 30 mL 2 Sig: USE 1 SPRAY NASALLY TWICE DAILY Please review and advise. Roberto Willis MA documented in this encounterDetwiler [facility]09-01-2022 Miscellaneous Notes* Telephone Encounter - Roberto Willis MA - 10/20/2021 7:23 AM EDT pharmacy electronically requesting refills as follows: Last seen 08/19/21 . Last refill 03/03/21 . Requested Prescriptions Pending Prescriptions Disp Refills triamcinolone acetonide (KENALOG) 0.1 % ointment [Pharmacy Med Name: TRIAMCINOLONE ACETONIDE 0.1 % Ointment] 80 g 1 Sig: APPLY TO AFFECTED AREA TWICE DAILY NEEDED Please review and advise. Roberto Willis MA documented in this encounterDetwiler [facility] Hospital08-25-2022 NoteHNO ID: [id number] Author: Jenelle Campos APRN.CT TECHNICIAN Service: ? Author Type: Nurse Practitioner Type: Progress Notes Filed: 10/13/2021 12:56 PM Note Text: [facility] OUTPATIENT VISIT DATE October 13, 2021 OUTPATIENT VISIT TYPE ESTABLISHED PRIMARY CARE PHYSICIAN: Ally Espinosa DO CHIEF COMPLAINT: Patient presents with: Leg Edema Breathing Problem HISTORY OF PRESENT ILLNESS: Rosalba Abebe is a 71 year old female who presents today for a follow-up visit in the Heart Failure Clinic. The patient was last seen in office 04/26. The following changes were made at that time: increase lasix for 3 days for weight gain. Patient has had 0 hospitalizations and/or emergency room encounters in the last 12 months. Today, the patient reports continued issues with left-sided chest pain. She states the pain is worse with exertion. She appears tearful during examination when discussing this. She was seen by cardiology in July who recommended a stress test however, the patient declined at the time. She does not wish to go to ER. She wears 3 liters oxygen at night. She only has to use her oxygen at home during the day if her oxygen drops less than 90%. This happens sometimes in the morning when she wakes up. She endorses shortness of breath on exertion. Denies dizziness and lightheadedness. Follows low sodium diet. She continues to take her lasix 40 mg twice a day. She was told she could increase this to three times a day if she needs based on swelling in her legs. Last time she took an additional lasix was a few days ago. States she has been taking an additional lasix several times a week. Of note, she has been off propranolol since 09/15 as her neurologist instructed her to stop taking as this interferes with her primidone.Furthermore, she will be off her gabapentin completely on 10/16 as this has not been helping her neuropathy. IMPRESSION: NYHA Functional Class: II Stage: C heart failure Rosalba Abebe is a 70 year-old female who presents to the Heart Failure clinic to establish care following hospital discharge. She appears euvolemic on examination. Will have increase her lasix to 60 mg twice a day. BMP next week to assess kidney function. Will also start low dose nitrate for chest discomfort. Will reach out to cardiology regarding stress test. Informed patient to continue to monitor sodium and fluid intake. Daily exercise encouraged. Again, discussed going to ER for further Reviewed plan of care with patient. All questions answered at this time. PLAN AND RECOMMENDATIONS: 1. Chronic diastolic congestive heart failure (HCC) - ICD9: 428.32, 428.0, ICD10: I50.32 (primary diagnosis) - daily weights, call office if weight increases 3-4 lbs in a 1-4 day period -2 gm low sodium diet -activity as tolerated, rest breaks as needed -EF 61% From ECHO -increase lasix to 60 mg twice a day -BMP next week -15 mg isosorbide daily -HF clinic 04/25 or sooner if needed (pt wishes to schedule 6 mos) 2. Hypertension, essential - ICD9: 401.9, ICD10: I10 -BP optimal during visit 151/74 mmHg -encourage DASH/low sodium diet -encourage exercise with rest breaks as needed -goal BP <130/80 mmHg -continue home BP monitoring 3. Mixed hyperlipidemia - ICD9: 272.2, ICD10: E78.2 -continue simvastatin -lipid panel 11/22/2020: LDL 69, HDL 64, total 156 Follow up appointment with Dr. Hernández on 01/31 SOB: Yes: on exertion Fatigue: No Orthopnea:No PND: No Edema:Yes: Stable in her legs Chest Pain:Yes: that occurs with activity Palpitations:Yes, that last for less than 5 minutes and are associated with activity Dizziness/Lightheadedness:No Syncope:No Appetite: good Diet:low salt (2000 mg) Fluid Restriction: No Regular Exercise: No PAST MEDICAL HISTORY Diagnosis Date Anemia due to vitamin B12 deficiency due to dietary causes Benign essential hypertension Bone pain Chest pain possibly cardiac, continue baby aspirin daily Colon cancer screening 06/2016 cologuard test negative Electrocardiogram abnormal order for nuclear stress test to be done at [facility] Essential hypertension continue meds Fatty liver 11/2015 Fibromyalgia GERD (gastroesophageal reflux disease) take pantoprazole first thing in the morning on an empty stomach, at least 1/2 hour before eating Hyperlipidemia Insomnia Joint pain Kidney stone change tamsulosin to as needed Left flank pain Migraine consider trial of imitrex after stress test is completed and if it is wnl Mini stroke 2016 Morbid obesity (HCC) Multiple joint pain Multiple lacunar infarcts (HCC) Obesity, unspecified Obstructive sleep apnea syndrome Unable to tolerate positive airway pressure Osteoarthritis of multiple joints s/p B/L TKR Osteopenia 2016 Peripheral neuropathy 02/2016 Pulmonary fibrosis (HCC) Rib fracture Stomach cramps (more content not included)...[id number] Instructions* Patient Instructions* Jenelle Campos APRN.CNP - 10/13/2021 12:21 PM EDT Please increase lasix to 60 mg twice a day (1.5 tablets). Also, please start taking 15 mg isosorbide (1/2 tablet). Continue to record blood pressures. Please call the office if readings drop below 105 mmHg (top number). Continue current medications as prescribed. Lab work to be drawn next week. 2. Weigh yourself daily. Call me if your weight increases by 3-4 pounds in a 1-4 day period of time. 3. Continue low salt (2000 mg per day) diet. 4. Be as active as you are able. If you get tired, just stop and rest for a while. 5. Come back and see me on SundayApril 25 at 1:00. If you have any question or concern, you can call me at [phone]. documented in this encounterDetw[facility]08-25-2022 History of Present illness Narrative* Jenelle Campos APRN.CNP - 10/13/2021 12:00 PM EDT Images from the original note were not included. Heart [facility] V[facility] OUTPATIENT VISIT DATE October 13, 2021 OUTPATIENT VISIT TYPE ESTABLISHED PRIMARY CARE PHYSICIAN: Ally Espinosa DO CHIEF COMPLAINT: Patient presents with: Leg Edema Breathing Problem HISTORY OF PRESENT ILLNESS: Rosalba Abebe is a 71 year old female who presents today for a follow-up visit in the Heart Failure Clinic. The patient was last seen in office 04/26. The following changes were made at that time: increase lasix for 3 days for weight gain. Patient has had 0 hospitalizations and/or emergency room encounters in the last 12 months. Today, the patient reports continued issues with left-sided chest pain. She states the pain is worse with exertion. She appears tearful during examination when discussing this. She was seen by cardiology in July who recommended a stress test however, the patient declined at the time. She does not wish to go to ER. She wears 3 liters oxygen at night. She only has to use her oxygen at home during the day if her oxygen drops less than 90%. This happens sometimes in the morning when she wakes up. She endorses shortness of breath on exertion. Denies dizziness and lightheadedness. Follows low sodium diet. She continues to take her lasix 40 mg twice a day. She was told she could increase this to three times a day if she needs based on swelling in her legs. Last time she took an additional lasix was a few days ago. States she has been taking an additional lasix several times a week. Of note, she has been off propranolol since 09/15 as her neurologist instructed her to stop taking as this interferes with her primidone.Furthermore, she will be off her gabapentin completely on 10/16 as this has not been helping her neuropathy. IMPRESSION: NYHA Functional Class: II Stage: C heart failure Rosalba Abebe is a 70 year-old female who presents to the Heart Failure clinic to establish care following hospital discharge. She appears euvolemic on examination. Will have increase her lasix to 60 mg twice a day. BMP next week to assess kidney function. Will also start low dose nitrate for chest discomfort. Will reach out to cardiology regarding stress test. Informed patient to continue to monitor sodium and fluid intake. Daily exercise encouraged. Again, discussed going to ER for further Reviewed plan of care with patient. All questions answered at this time. PLAN AND RECOMMENDATIONS: 1. Chronic diastolic congestive heart failure (HCC) - ICD9: 428.32, 428.0, ICD10: I50.32 (primary diagnosis) - daily weights, call office if weight increases 3-4 lbs in a 1-4 day period -2 gm low sodium diet -activity as tolerated, rest breaks as needed -EF 61% From ECHO -increase lasix to 60 mg twice a day -BMP next week -15 mg isosorbide daily -HF clinic 04/25 or sooner if needed (pt wishes to schedule 6 mos) 2. Hypertension, essential - ICD9: 401.9, ICD10: I10 -BP optimal during visit 151/74 mmHg -encourage DASH/low sodium diet -encourage exercise with rest breaks as needed -goal BP <130/80 mmHg -continue home BP monitoring 3. Mixed hyperlipidemia - ICD9: 272.2, ICD10: E78.2 -continue simvastatin -lipid panel 11/22/2020: LDL 69, HDL 64, total 156 Follow up appointment with Dr. Hernández on 01/31 SOB: Yes: on exertion Fatigue: No Orthopnea:No PND: No Edema:Yes: Stable in her legs Chest Pain:Yes: that occurs with activity Palpitations:Yes, that last for less than 5 minutes and are associated with activity Dizziness/Lightheadedness:No Syncope:No Appetite: good Diet:low salt (2000 mg) Fluid Restriction: No Regular Exercise: No PAST MEDICAL HISTORY Diagnosis Date Anemia due to vitamin B12 deficiency due to dietary causes Benign essential hypertension Bone pain Chest pain possibly cardiac, continue baby aspirin daily Colon cancer screening 06/2016 cologuard test negative Electrocardiogram abnormal order for nuclear stress test to be done at [facility] Essential hypertension continue meds Fatty liver 11/2015 Fibromyalgia GERD (gastroesophageal reflux disease) take pantoprazole first thing in the morning on an empty stomach, at least 1/2 hour before eating Hyperlipidemia Insomnia Joint pain Kidney stone change tamsulosin to as needed Left flank pain Migraine consider trial of imitrex after stress test is completed and if it is wnl Mini stroke 2016 Morbid obesity (HCC) Multiple joint pain Multiple lacunar infarcts (HCC) Obesity, unspecified Obstructive sleep apnea syndrome Unable to tolerate positive airway pressure Osteoarthritis of multiple joints s/p B/L TKR Osteopenia 2016 Peripheral neuropathy 02/2016 Pulmonary fibrosis (HCC) Rib fracture Stomach cramps Tremor Vitamin D deficiency PAST SURGICAL HISTORY Procedure Laterality Date ARTHRP KNE CONDYLE&PLATU MEDIAL&LAT COMPARTMENTS Bilateral CARPAL TUNNEL Left 02/09/2014 SECTION HX [facility] 1986 COLONOSCOPY Removal of polyps, [facility] 01/2013 F LITHOTRIPSY [facility], 8mm kidney stone, rt side w/ stent placement 2013 F TOTAL ABDOMINAL HYSTERECTOMY OPPONENSPLASTY SUPFCIS TDN TR TYP EA TDN Left Social History Tobacco Use Smoking status: Former Packs/day: 1.00 Years: 25.00 Pack years: 25.00 Types: Cigarettes Quit date: 02/27/1987 Years since quittin.6 Smokeless tobacco: Never Tobacco comments: Former smoker; Tobacco reviewed with patient 08/30/2015 Vaping Use Vaping Use: Never used Substance Use Topics Alcohol use: No Comment: Non-drinker Drug use: No Comment: No reported history Family History Problem Relation Age of Onset Prostate Cancer Father other (Uterine cancer) Father other (Myocardial infarction) Father Prostate Cancer Paternal Grandmother Prostate Cancer Paternal Uncle Diabetes Other other (Neck cancer) Brother ALLERGIES Allergen Reactions Amoxicillin-Pot Cla* Diarrhea, GI Upset Anesthetics - Amide* Other: See Comments BECOMES AGGRESSIVE AND COMBATIVE. STOPS BREATHING DURING SURGERY. Aspirin Vomiting, Other: See Comments Blood in stool , adverse reaction Bee Venom Protein (* Swelling Cortisone Other: See Comments CAUSES PAIN AND BURNING Darvocet-N 100 [Pro* GI Upset, Vomiting Estrogens Other: See Comments ALL HORMONES, HAVE TRIED MANY. GIVES BREAKTHROUGH BLEEDING Influenza Virus Vac* Unknown Iodinated Contrast * Hives, Vomiting ALL DYES Iodine And Iodide C* Swelling Levaquin [Levofloxa* GI Upset E.E.S. Nsaids (Non-Steroid* Unknown Paxil [Paroxetine H* Other: See Comments Weight gain Spider Venom Swelling Venom-Wasp Swelling CURRENT MEDICATIONS: Current Outpatient Medications Medication Sig Dispense Refill fluticasone-vilanterol (BREO ELLIPTA) 200-25 mcg/dose inhaler INHALE 1 PUFF ONE TIME DAILY DIRECTED 1 Each 2 omeprazole (PRILOSEC) 40 mg capsule TAKE 1 CAPSULE EVERY DAY 90 capsule 1 temazepam (RESTORIL) 30 mg cap Take 1 capsule by mouth at bedtime as needed for up to 90 days. 90 capsule 0 Milk Thistle 500 mg cap Take 1 capsule by mouth daily at bedtime. Deandra, Zingiber officinalis, (DEANDRA EXTRACT) 250 mg cap Take 450 mg by mouth once daily. Lactobacillus acidophilus (PROBIOTIC) 10 billion cell cap Take by mouth. Prebiotic diphenhydramine HCl (BENADRYL ALLERGY ORAL) Take 2 tablets by mouth every 12 hours as needed. carboxymethylcellulose sodium (ARTIFICIAL TEARS, CMC, OPHTHALMIC) Use in eyes. sodium chloride (SALINE MIST) 0.65 % nasal spray Use 1 [place] in the nose as needed. potassium chloride ER (K-DUR, KLOR-CON) 10 mEq tablet TAKE 2 TABLETS TWICE DAILY 360 tablet 1 simvastatin (ZOCOR) 40 mg tablet TAKE 1 TABLET EVERY DAY AT BEDTIME 90 tablet 1 furosemide (LASIX) 40 mg tablet TAKE 1 TABLET TWICE DAILY 180 tablet 1 gabapentin (NEURONTIN) 300 mg capsule TAKE 3 CAPSULES EVERY DAY AT BEDTIME 270 capsule 0 tamsulosin (FLOMAX) 0.4 mg TAKE 1 CAPSULE EVERY DAY 90 capsule 1 montelukast (SINGULAIR) 10 mg tablet TAKE 1 TABLET AT BEDTIME 90 tablet 1 Ibandronate 150 mg tablet TAKE 1 TABLET ONE TIME PER MONTH 3 tablet 3 hydrOXYzine HCl (ATARAX) 25 mg tablet Take 1 tablet by mouth three times daily as needed (for itching). 270 tablet 1 sertraline (ZOLOFT) 25 mg tablet Take 1 tablet by mouth once daily. 90 tablet 1 potassium chloride (K-TAB) 10 mEq tablet Take 2 tablets by mouth twice daily. 360 tablet 1 nystatin (MYCOSTATIN) 100,000 unit/mL suspension Take 5 mL by mouth four times daily as needed. Swish and swallow. (Patient not taking: Reported on 08/19/2021 ) 473 mL 1 albuterol HFA (PROVENTIL HFA, VENTOLIN HFA) 90 mcg/actuation inhaler Inhale 2 Puffs as instructed every 4 hours as needed for wheezing/shortness of breath. 1 Inhaler 1 TRIAMCINOLONE ACETONIDE TOPICAL Apply 1 % to affected area. propranolol (INDERAL) 40 mg tablet Take 1 tablet by mouth twice daily. cholecalciferol (VITAMIN D) 1,000 unit tab tablet Take 1 tablet by mouth once daily. guaiFENesin (MUCINEX) 600 mg 12 hr tablet Take 1 tablet by mouth every 12 hours as needed (cough). 30 tablet 0 Ipratropium [place] (ATROVENT) 21 mcg (0.03 %) nasal spray USE 1 SPRAY IN THE NOSE TWICE DAILY. 30 mL 2 allopurinol (ZYLOPRIM) 300 mg tablet TAKE 1 TABLET EVERY DAY 90 tablet 1 OTC PRODUCT Super snooze night time sleep cetirizine (ZYRTEC) 10 mg tablet Take 10 mg by mouth once daily. omega-3/dha/epa/dpa/fish oil (OMEGA-3 2100 ORAL) Take by mouth. Orlistat (KUSUM) 60 mg capsule Take 120 mg by mouth twice daily with meals. POLYETHYLENE GLYCOL 3350 (MIRALAX ORAL) Take by mouth. Acetaminophen 500 mg cap Take 2 tablets by mouth twice daily. aspirin, enteric coated (ASPIRIN, ENTERIC COATED) 81 mg EC tablet Take 81 mg by mouth once daily. docusate sodium (COLACE) 100 mg capsule Take 300 mg by mouth once daily. No current facility-administered medications for this visit. REVIEW OF SYSTEMS: GENERAL: Positive for:Weight gain HEENT: Positive for:Glasses NECK: Negative for: Swelling, Pain, Stiffness RESPIRATORY: Positive for: Shortness of breath GASTROINTESTINAL: Negative for: Trouble swallowing, Heartburn, Change in bowel habits, Blood in stool, Dark black stools MUSCULOSKELETAL: Negtive for: Muscle or joint pain, stiffness, Joint swelling NEUROLOGIC/PSYCHIATRIC: Negative for: Weakness, Paralysis, Numbness, Tingling, Tremor, Nervousness or anxiety, Depressed mood, Memory loss SKIN: Negative for: Rash, Itching HEMATOLOGICAL/LYMPHATIC: Positive for: Easy bruising ENDOCRINE: Negative for: Heat or Cold Intolerance, Excessive Sweating, Frequent Urination, FrequentThirst PHYSICAL EXAMINATION: BP 151/74 Pulse 80 Wt 112.9 kg (249 lb) SpO2 97% BMI 44.11 kg/m General: Normal exam, no distress, obese Skin: No clubbing, no cyanosis. Eyes: Extra ocular movements intact Neck: Neck veins are not distended Lungs: Chest clear to auscultation Heart: Rhythm: regular rate and rhythm, Rate: normal, no murmur Abdomen: Normal, Bowel Sounds: Present Extremities: edema: Trace Peripheral Pulses: Normal CARDIOVASCULAR MEDICINE TESTING: LABS 09/28/2021: Latest Reference Range & Units 09/28/21 15:20 Sodium 136 - 144 mmol/L 136 Potassium 3.7 - 5.1 mmol/L 4.6 Chloride 97 - 105 mmol/L 98 CO2 22 - 30 mmol/L 24 BUN 7 - 21 mg/dL 15 Creatinine 0.58 - 0.96 mg/dL 0.77 Glucose 74 - 99 mg/dL 95 Protein, Total 6.3 - 8.0 g/dL 6.3 - 8.0 g/dL 7.1 7.4 Calcium 8.5 - 10.2 mg/dL 10.0 Albumin 3.9 - 4.9 g/dL 4.3 Bilirubin, Total 0.2 - 1.3 mg/dL 0.2 Alkaline Phosphatase 34 - 123 U/L 100 ALT 7 - 38 U/L 12 AST 13 - 35 U/L 17 Anion Gap 9 - 18 mmol/L 14 ECHO 04/04/2021: CONCLUSIONS: - Exam indication: Heart failure, SOB - The left ventricle is normal in size. There is mild concentric left ventricular hypertrophy. Left ventricular systolic function is normal. EF = 61 5% (2D biplane) Grade II left ventricular diastolic dysfunction. - The right ventricle is normal in size. Right ventricular systolic function is normal. - The left atrial cavity is moderately dilated. - The right atrial cavity is mildly dilated. - There is moderate (2+) mitral valve regurgitation. Regurgitant orifice area (PISA) is 0.22 cm . - Mild (1+) tricuspid regurgitation. - Mild aortic stenosis with mild (1+) AI. - Estimated right ventricular systolic pressure is likely underestimated due to a weak or incomplete tricuspid regurgitation signal and is, at least, 43 mmHg consistent with mild pulmonary hypertension. Estimated right atrial pressure is 8 mmHg based on IVC assessment. - Exam was compared with the prior echocardiographic exam performed on 12/17/18. There is no significant change. I have personally reviewed the Laboratory Testing and Echocardiogram. COUNSELING: We discussed the following non-pharmacological measures during this visit: Smoking and alcohol abstinence/cessation, if applicable Dietary and medication compliance Monitoring daily weights and blood pressures Exercise regimen When to call our office Heart Failure Education Booklet: Previously given. Discussed red flags and when to call MD/NUTRITIONAL SERVICES HOST or [facility] ED. Medications reconciled at end of visit: yes I spent 45 minutes in this visit, with more than 50% of the time devoted to patient counseling. SIGNATURE: Jenelle Campos APRN.CNP PATIENT NAME: Rosalba Abebe DATE: October 13, 2021 TIME: 9:32 AM documented in this encounterDetwiler [facility]08-11-2022 Miscellaneous Notes* Telephone Encounter - Roberto Willis MA - 09/29/2021 7:35 AM EDT pharmacy electronically requesting refills as follows: Last seen 08/19/21 . Last refill 05/16/21 . Requested Prescriptions Pending Prescriptions Disp Refills omeprazole (PRILOSEC) 40 mg capsule [Pharmacy Med Name: OMEPRAZOLE 40 MG Capsule Delayed Release] 90 capsule 1 Sig: TAKE 1 CAPSULE EVERY DAY Please review and advise. Roberto Willis MA documented in this encounterDetwiler [facility]08-10-2022 History of Present illness Narrative* Sarah Torres MA - 09/28/2021 9:24 AM EDT POPULATION HEALTH NAVIGATION OUTREACH Action/FYI unable to file order for [facility] pcp, [employer] sent for pt to call to schedule mammogram, ad, added notes to upcoming ov Pt identified by name and : YES, via [employer] Outreach Outcome/Action [employer] message sent Did you use a PCP flex slot to schedule this appointment? N/A Reason for Outreach Care Gap or Scheduling/Wellness visits Payer: Payor: [employer] MEDICARE / Plan: [place] / Product Type: HMO / Care Gap Reviewed:: Breast Cancer screening Reminder: Reminder note to check Health Maintenance for items below Health Maintenance items due: COVID-19 VACCINE(4 - Booster for Pfizer series) due on 04/18/2021 Message Sent to Practice: No Navigation Signature: Sarah Torres MA September 28, 2021 9:24 AM documented in this encounterDetwiler [facility]08-03-2022 Miscellaneous Notes* Telephone Encounter - Roberto Willis MA - 09/21/2021 7:36 AM EDT pharmacy electronically requesting refills as follows: Last seen 08/19/21 . Last refill 04/26/21 . Pending Prescriptions Disp Refills FLUTICASONE FUROATE 200 MCG-VILANTEROL 25 MCG/DOSE INHALATION POWDER Sig: INHALE 1 PUFF ONE TIME DAILY DIRECTED ALFREDO: Yes Please review and advise. Roberto Willis MA documented in this encounterDetwiler [facility]08-02-2022 Miscellaneous Notes* Telephone Encounter - Senia Rosen MA - 09/20/2021 10:21 AM EDT Called pt let her know the information pt already stopped her medication on Sunday she did not [place]own she just stopped. Pt is scheduled for NV in 2 weeks Senia Rosen MA * Telephone Encounter - Ally Espinosa DO - 09/19/2021 8:13 PM EDT She may do that, but she may need to start on another blood pressure medication to keep her BP at goal. She can wean off the propranolol by taking it daily for 3 days, then every other day for 3 days. I would like for her to make an appt for a NV BP 2 weeks after she stops propranolol to see what her BP is thanks Ally Espinosa DO * Telephone Encounter - Roberto Willis MA - 09/16/2021 9:25 AM EDT Patient left message stating she saw Dr. Lino yesterday and he would like her to stop the propranolol and he is going to start her on primidone 50 mg half tablet for two weeks then one tablet daily. Patient would like to know if Dr. Espinosa is okay with this change before she does it. Please advise. Roberto Willis MA documented in this encounterDetwiler [facility] Hospital07-01-2022 Nurse Note* Roberto Willis MA - 08/19/2021 2:34 PM EDT Immunizations were given as ordered. Vaccination information sheet(s) given. Roberto Willis MA documented in this encounterDetwiler [facility]07-01-2022 History of Present illness Narrative* Ally Espinosa DO - 08/19/2021 2:13 PM EDT Subjective The history is provided by the patient. 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 Hernández, on 08/10 She has tremors, plans to see a neurologist to discuss on 09/16 She has chronic cough, is under the care of Dr. Calle, log chipper Takes temazepam for insomnia Review of Systems Constitutional: Negative for chills, diaphoresis, fever, malaise/fatigue and weight loss. HENT: Negative for ear pain and hearing loss. Eyes: Negative for blurred vision and double vision. Respiratory: Negative for cough and shortness of breath. Cardiovascular: Negative for chest pain, palpitations and leg swelling. Gastrointestinal: Negative for constipation, diarrhea and heartburn. Genitourinary: Negative for dysuria and frequency. Musculoskeletal: Negative for back pain, falls, joint pain and myalgias. Skin: Negative for itching and rash. Neurological: Positive for tingling, tremors and sensory change. Negative for dizziness, weakness and headaches. Endo/Heme/Allergies: Does not bruise/bleed easily. Psychiatric/Behavioral: Negative for depression and substance abuse. The patient has insomnia. Objective BP 124/70 (BP Site: Right Arm, BP Position: Sitting, BP Cuff Size: Regular Adult) Pulse 60 Temp37.2 C (99 F) Resp 16 Ht 160 cm (5' 3) Wt 110 kg (242 lb 6.4 oz) SpO2 95% BMI 42.94 kg/m Physical Exam Constitutional: Appearance: Normal appearance. She is obese. HENT: Head: Normocephalic and atraumatic. Nose: Nose normal. Mouth/Throat: Mouth: Mucous membranes are moist. Dentition: Normal dentition. Eyes: General: Lids are normal. Extraocular Movements: Extraocular movements intact. Conjunctiva/sclera: Conjunctivae normal. Pupils: Pupils are equal, round, and reactive to light. Neck: Thyroid: No thyroid mass or thyromegaly. Vascular: No carotid bruit. Trachea: Phonation normal. Cardiovascular: Rate and Rhythm: Normal rate and regular rhythm. Heart sounds: Normal heart sounds. No murmur heard. No friction rub. No gallop. Pulmonary: Effort: Pulmonary effort is normal. Breath sounds: Normal breath sounds. No wheezing or rales. Abdominal: General: Bowel sounds are normal. There is no distension. Palpations: Abdomen is soft. There is no mass. Tenderness: There is no abdominal tenderness. Musculoskeletal: General: No swelling or tenderness. Normal range of motion. Cervical back: Normal range of motion and neck supple. No edema. Lymphadenopathy: Cervical: No cervical adenopathy. Skin: General: Skin is warm and dry. Findings: No erythema or rash. Nails: There is no clubbing. Neurological: Mental Status: She is alert and oriented to person, place, and time. Cranial Nerves: No cranial nerve deficit. Motor: Motor function is intact. Coordination: Coordination normal. Gait: Gait abnormal (walks with cane). Psychiatric: Attention and Perception: Attention normal. Mood and Affect: Mood and affect normal. Speech: Speech normal. Behavior: Behavior normal. Behavior is cooperative. Thought Content: Thought content normal. Cognition and Memory: Cognition and memory normal. Judgment: Judgment normal. ASSESSMENT/PLAN: 1. Chronic insomnia - ICD9: 780.52, ICD10: F51.04 (primary diagnosis) Continue temazepam as needed 2. Peripheral polyneuropathy - ICD9: 356.9, ICD10: G62.9 Takes gabapentin 3. Obesity, Class III, BMI >= 40 - ICD9: 278.01, ICD10: E66.01 Lifestyle modification recommended 4. BMI 40.0-44.9, adult (HCC) - ICD9: V85.41, ICD10: Z68.41 Lifestyle modification recommended 5. Encounter for immunization - ICD9: V03.89, ICD10: Z23 - PNEUMOCOCCAL VACCINE (PREVNAR 20) - IMADM PRQ ID SUBQ/IM NJXS 1 VACC Ally Espinosa DO PDMP website checked and validated. All prescriptions have been APPROPRIATELY filled. No suspiciousactivity was identified. 08/19/2021 by Ally Espinosa DO documented in this encounterDetwiler [facility]06-22-2022 History of Present illness Narrative* Deepika Hernández DO - 08/10/2021 12:51 PM EDT [facility] Established Rosalba Abebe [id number] PCP: Ally Espinosa DO Primary [employer]rication Department Supervisor: None CHRISTIANO 12/11/18 with hospital visit 04/04/2021 ASSESSMENT AND RECOMMENDATIONS Shortness of breath: - SOB is better since inhaler and diuretics - likely multifactorial as patient has history of COPD/bronchectasis/pulmonary fibrosis and historyof mild aortic stenosis - NTProBNP mildly elevated on admission at 873 - Patient taking Lasix 40 mg BID - Echo showed EF 61% with mild concentric LVH and grade II diastolic dysfunction. Mitral valve with2+ regurg - which is not significantly changed from previous. Her diastolic dysfunction has worsened since her last echo in 2019. - Low salt diet reviewed. - On O2 - pulm is also following. Bilateral lower extremity edema - Doing better - Low salt diet reviewed. Hypertension - blood pressure optimally controlled - Propanolol was increased this admission to 40 mg TID Mitral Valve Regurgitation - Echo 04/04/2021 showed 2+ MV regurgitation - Unchanged from echo in 2019 IMPRESSION: This is a 70 year old female with h/o HTN, HLD, TIA, COPD/asthma presented for hospitaladmit 03/2021 with SOB x 1-2 weeks with GAMBOA along with mild orthopnea. She did respond to diuretics in hospital and is doing better. She has some atypical chest pain and I talked about repeating her stress test from 3 years ago (that was normal) but she does not want to do this. She will continue to take diuretics and I did ask her to replace her broken scale to help monitor daily weights. If her chest discomfort is worse she will let us know. She does not exercise due to orhtopedic painbut will try to do the best she can Thank you for allowing me the privilege of participating in the care of your patient. Please do nothesitate to contact me if there are any questions. Deepika Hernández, , FACC, FCCP, FACOI PAST MEDICAL HISTORY PAST MEDICAL HISTORY Diagnosis Date Anemia due to vitamin B12 deficiency due to dietary causes Benign essential hypertension Bone pain Chest pain possibly cardiac, continue baby aspirin daily Colon cancer screening 06/2016 cologuard test negative Electrocardiogram abnormal order for nuclear stress test to be done at [facility] Essential hypertension continue meds Fatty liver 11/2015 Fibromyalgia GERD (gastroesophageal reflux disease) take pantoprazole first thing in the morning on an empty stomach, at least 1/2 hour before eating Hyperlipidemia Insomnia Joint pain Kidney stone change tamsulosin to as needed Left flank pain Migraine consider trial of imitrex after stress test is completed and if it is wnl Mini stroke 2016 Morbid obesity (HCC) Multiple joint pain Multiple lacunar infarcts (HCC) Obesity, unspecified Obstructive sleep apnea syndrome Unable to tolerate positive airway pressure Osteoarthritis of multiple joints s/p B/L TKR Osteopenia 2015 Peripheral neuropathy 02/2016 Pulmonary fibrosis (HCC) Rib fracture Stomach cramps Tremor Vitamin D deficiency PAST SURGICAL HISTORY Procedure Laterality Date ARTHRP KNE CONDYLE&PLATU MEDIAL&LAT COMPARTMENTS Bilateral CARPAL TUNNEL Left 02/09/2014 SECTION HX [facility] 1986 COLONOSCOPY Removal of polyps, [facility] 01/2013 F LITHOTRIPSY [facility], 8mm kidney stone, rt side w/ stent placement 2013 F TOTAL ABDOMINAL HYSTERECTOMY OPPONENSPLASTY SUPFCIS TDN TR TYP EA TDN Left FAMILY HISTORY FAMILY HISTORY Problem Relation Age of Onset Prostate Cancer Father other (Uterine cancer) Father other (Myocardial infarction) Father Prostate Cancer Paternal Grandmother Prostate Cancer Paternal Uncle Diabetes Other other (Neck cancer) Brother SOCIAL HISTORY Social History Tobacco Use Smoking status: Former Smoker Packs/day: 1.00 Years: 25.00 Pack years: 25.00 Types: Cigarettes Quit date: 02/27/1987 Years since quittin.4 Smokeless tobacco: Never Used Tobacco comment: Former smoker; Tobacco reviewed with patient 08/30/2015 Vaping Use Vaping Use: Never used Substance Use Topics Alcohol use: No Comment: Non-drinker Drug use: No Comment: No reported history INPATIENT MEDICATIONS No current facility-administered medications for this visit. ALLERGIES ALLERGIES Allergen Reactions Amoxicillin-Pot Cla* Diarrhea, GI Upset Anesthetics - Amide* Other: See Comments BECOMES AGGRESSIVE AND COMBATIVE. STOPS BREATHING DURING SURGERY. Aspirin Vomiting, Other: See Comments Blood in stool , adverse reaction Bee Venom Protein (* Swelling Cortisone Other: See Comments CAUSES PAIN AND BURNING Darvocet-N 100 [Pro* GI Upset, Vomiting Estrogens Other: See Comments ALL HORMONES, HAVE TRIED MANY. GIVES BREAKTHROUGH BLEEDING Influenza Virus Vac* Unknown Iodinated Contrast * Hives, Vomiting ALL DYES Iodine And Iodide C* Swelling Levaquin [Levofloxa* GI Upset E.E.S. Nsaids (Non-Steroid* Unknown Paxil [Paroxetine H* Other: See Comments Weight gain Spider Venom Swelling Venom-Wasp Swelling PHYSICAL EXAM BP 136/80 Pulse 73 Ht 160 cm (5' 3) Wt 109 kg (240 lb 3.2 oz) SpO2 94% BMI 42.55 kg/m General Appearance: Well developed, Well nourished , Obese and No distress HEENT: PERRLA, EOM's intact and Good dentition Lungs: Decreased breath sounds , Rales and Respiratory effort: normal Heart: Regular rate & rhythm, No Edema and Pulses 2+ Abdomen: Soft, Round, Non-tender and Bowel sounds present Skin: Warm and Dry Musculoskeletal: No deformities Neurologic/Psychiatric: Oriented to time, place & person DATA Laboratory: Cholesterol, Total (mg/dL) Date Value 11/22/2020 156 12/07/2018 155 HDL Cholesterol (mg/dL) Date Value 11/22/2020 64 12/07/2018 71 LDL Cholesterol (mg/dL) Date Value 11/22/2020 69 LDL (mg/dL) Date Value 12/07/2018 57 Triglyceride (mg/dL) Date Value 11/22/2020 116 12/07/2018 133 Hemoglobin A1C (%) Date Value 11/08/2012 6.0 EK12/11/2018 Diagnosis:NORMAL SINUS RHYTHM NORMAL ECG Echocardiogram: 12/17/2018 CONCLUSIONS: - Technically difficult exam due to body habitus. - Exam indication: Chest Pain - The left ventricle is normal in size. Left ventricular systolic function is normal. EF = 63 5% (2D biplane) - The right ventricle is normal in size. Right ventricular systolic function is normal. - The left atrial cavity is severely dilated. - There is moderate (2+) mitral valve regurgitation. Regurgitant orifice area (PISA) is 0.23 cm . - Mild aortic stenosis with Pk/Mn gradients of 27/15 mmHg. LYNSEY is 1.2cm2. - The patient has not had a prior CC echocardiographic exam for comparison. Stress Testin12/25/2018 CONCLUSIONS: 1. SPECT Perfusion Study: Normal. 2. There is no scintigraphic evidence for inducible ischemia. 3. No evidence of scarred myocardium. 4. Functional capacity N/A (pharmacological). 5. Left ventricle is normal in size. The left ventricle systolic function is normal. 6. Right ventricle is normal in size. 7. This is a low risk scan. LVEF % 73 Cardiac Catheterization: None Chest Radiograph: 04/01/2021 IMPRESSION: No definite acute process. Emphysematous and fibrotic changes are again noted. Follow-up with two-view chest exam as indicated. Other Radiology: 04/02/2021 IMPRESSION: No interval change Areas of bronchiectasis and fibrotic change Mosaic attenuation suggesting small airways/small vessels disease Unchanged borderline mediastinal adenopathy, possibly reactive Dilated pulmonary artery suggests pulmonary arterial hypertension. Cholelithiasis. Small hiatal hernia [facility] Miscellaneous Notes* Telephone Encounter - Roberto Willis MA - 08/05/2021 9:30 AM EDT pharmacy electronically requesting refills as follows: Last seen 05/20/21 . Last refill 06/06/21 . Pending Prescriptions Disp Refills GABAPENTIN 300 MG CAPSULE 270 capsule 0 Sig: TAKE 3 CAPSULES EVERY DAY AT BEDTIME ALFREDO: Yes Please review and advise. Roberto Willis MA documented in this [facility]Det[facility]06-09-2022 Miscellaneous Notes* Telephone Encounter - Roberto Willis MA - 07/28/2021 1:39 PM EDT ENT referral faxed to Dr. Hurt [phone]. Roberto Willis MA * Telephone Encounter - Ally Espinosa DO - 07/28/2021 1:24 PM EDT Referral attached Ally Espinosa DO * Telephone Encounter - Roberto Willis MA - 07/28/2021 12:36 PM EDT Cardiology referral is already in chart. Please place ENT referral. Thanks. Roberto Willis MA documented in this encounterDet[facility]05-31-2022 Miscellaneous Notes* Telephone Encounter - Mckenzie Carcamo MA - 07/19/2021 8:24 AM EDT Pharmacy requesting refills as follows: Last Office Visit 05/20/21. Last Refill 05/20/21. Pending Prescriptions Disp Refills TAMSULOSIN 0.4 MG CAPSULE 90 capsule 1 Sig: TAKE 1 CAPSULE EVERY DAY ALFREDO: Yes Please review and advise. Mckenzie Carcamo MA documented in this [facility]05-25-2022 Miscellaneous Notes* Telephone Encounter - Whit Mandujano MA - 07/13/2021 11:41 AM EDT Pharmacy requesting refills: Last office visit 05/20/2021. Last refill 05/20/2021 nov 08/19/2021 Pending Prescriptions Disp Refills MONTELUKAST 10 MG TABLET 90 tablet 1 Sig: TAKE 1 TABLET AT BEDTIME ALFREDO: Yes Please review and advise. Whit Mandujano MA documented in this [facility]Det[facility]05-[facility]-2022 Miscellaneous Notes* Telephone Encounter - Katie Gonsalez - 06/24/2021 4:43 PM EDT Noted. Katie Gonsalez * Telephone Encounter - Rocio Tinoco APRN.CNP - 06/24/2021 3:57 PM EDT Order for referral has been placed. Rocio Tinoco APRN.CNP * Telephone Encounter - Katie Gonsalez - 06/24/2021 2:53 PM EDT The patient has a scheduled appointment on 07/04/[address] Vegas at [facility]. Her insurancerequires authorizations for specialists. The appointment is for allergy testing. Please advise. Katie Gonsalez documented in this encounterDet[facility]05-06-2022 Miscellaneous Notes* Telephone Encounter - Valentina Stafford RN - 06/24/2021 4:14 PM EDT Called and asked [facility] [place] to fax results to us. Valentina Stafford RN * Telephone Encounter - Ally Robb LPN - 06/24/2021 4:12 PM EDT Images from the original note were not included. Nehal Calle MD You 26 minutes ago (3:46 PM) I do not have the results of her nocturnal oximetry. Can you call [facility] [place] to have them sent. Message text * Telephone Encounter - Ally Robb LPN - 06/24/2021 11:36 AM EDT Patient called reporting that she had breathing test where she wore watch at night done through hersupplier ([facility] [place]) of O2 but has not heard results. She is also having chest congestion x 4 days with some green drainage and is asking if steroid or antibiotic is appropriate? She does have an appointment with Dr. Ohara to test allergies. Please review and advise. Ally Robb LPN documented in this encounterDet[facility]04-27-2022 Miscellaneous Notes* Telephone Encounter - Lynette Rivas MA - 06/15/2021 8:07 AM EDT Pharamcy requesting refills as follows: Last Office Visit 05/20/21 nov 08/19/21. Last Refill 08/24/20. Pending Prescriptions Disp Refills IBANDRONATE 150 MG TABLET 3 tablet 3 Sig: TAKE 1 TABLET ONE TIME PER MONTH ALFREDO: Yes Please review and advise. Lynette Rivas MA documented in this encounterDetw[facility]04-18-2022 Miscellaneous Notes* Telephone Encounter - Whit Mandujano MA - 06/06/2021 1:16 PM EDT Pharmacy requesting refills: Last office visit 05/20/2021. Last refill 05/10/2021 nov 08/19/2021 Pending Prescriptions Disp Refills GABAPENTIN 300 MG CAPSULE 270 capsule 0 Sig: TAKE 3 CAPSULES EVERY DAY AT BEDTIME ALFREDO: Yes Please review and advise. Whit Mandujano MA documented in this encounterDet[facility]04-12-2022 Miscellaneous Notes* Telephone Encounter - Whit Mandujano MA - 05/31/2021 12:55 PM EDT Patient notified. Whit Mandujano MA * Addendum Note - Ally Espinosa DO - 05/31/2021 12:08 PM EDT Addended by: ALLY ESPINOSA on: 05/31/2021 12:08 PM Modules accepted: Orders * Telephone Encounter - Ally Espinosa DO - 05/31/2021 12:07 PM EDT Please call pt - I sent in a prescription for a different kind of mouthwash she can use Ally Espinosa DO * Telephone Encounter - Whit Mandujano MA - 05/31/2021 11:30 AM EDT Patient lm on vm stating she has been using the nystatin suspension swish and swallow. She states her mouth is getting worse and it looks like she has white pimples on the side of her tongue and inside of her mouth. Patient states she thinks it is mouth ulcers. (her has had them before) patient wants to know what she can do for these ulcers. Please advise. Whit Mandujano MA documented in this encounterDet[facility]04-01-2022 History of Present illness Narrative* Ally Dominguez Silvano, DO - 05/20/2021 1:30 PM EDT Subjective HPI Pt is here for one month f/u for hypoxia She is now on O2 at night only Her O2 sats are decent during the day She is still taking lasix 40 mg bid When she had her bloodwork on 05/13/21, she was taking potassium She had a sinus infection at last visit that continues She finished Rx for augmentin Continued to have sinus drainage and cough Rx for tessalon perles were given at the last visit, but they are not working Was then prescribed bactrim DS at last visit, which she finished She saw Dr. Calle since her visit here She prescribed tessalon perles, which are not really helping She has had a dry cough for a long time She will discuss with Dr. Calle Her mouth is sore She uses breo ellipta She is rinsing her mouth properly and frequently She takes gabapentin for peripheral polyneuropathy She plans on seeing a neurologist to discuss She has tremors so bad she cannot even write anymore She was referred to a neurologist, and plans on following up with her ALLERGIES Allergen Reactions Amoxicillin-Pot Cla* Diarrhea, GI Upset Anesthetics - Amide* Other: See Comments BECOMES AGGRESSIVE AND COMBATIVE. STOPS BREATHING DURING SURGERY. Aspirin Vomiting, Other: See Comments Blood in stool , adverse reaction Bee Venom Protein (* Swelling Cortisone Other: See Comments CAUSES PAIN AND BURNING Darvocet-N 100 [Pro* GI Upset, Vomiting Estrogens Other: See Comments ALL HORMONES, HAVE TRIED MANY. GIVES BREAKTHROUGH BLEEDING Influenza Virus Vac* Unknown Iodinated Contrast * Hives, Vomiting ALL DYES Iodine And Iodide C* Swelling Levaquin [Levofloxa* GI Upset E.E.S. Nsaids (Non-Steroid* Unknown Paxil [Paroxetine H* Other: See Comments Weight gain Spider Venom Swelling Venom-Wasp Swelling Current Outpatient Medications Medication Sig Dispense Refill omeprazole (PRILOSEC) 40 mg capsule Take 1 capsule by mouth once daily. 90 capsule 1 temazepam (RESTORIL) 30 mg cap Take 1 capsule by mouth at bedtime as needed for up to 90 days. 90 capsule 0 gabapentin (NEURONTIN) 300 mg capsule TAKE 3 CAPSULES EVERY DAY AT BEDTIME 270 capsule 0 benzonatate (TESSALON PERLES) 100 mg capsule Take 1 capsule by mouth three times daily as needed. FOR COUGHING. 60 capsule 1 fluticasone-vilanterol (BREO ELLIPTA) 200-25 mcg/dose inhaler Inhale 1 Inhalation as instructed once daily. 180 Each 1 albuterol HFA (PROVENTIL HFA, VENTOLIN HFA) 90 mcg/actuation inhaler Inhale 2 Puffs as instructed every 4 hours as needed for wheezing/shortness of breath. 1 Inhaler 1 TRIAMCINOLONE ACETONIDE TOPICAL Apply 1 % to affected area. propranolol (INDERAL) 40 mg tablet Take 1 tablet by mouth twice daily. cholecalciferol (VITAMIN D) 1,000 unit tab tablet Take 1 tablet by mouth once daily. hydrOXYzine HCl (ATARAX) 25 mg tablet Take 1 tablet by mouth three times daily as needed (for itching). 45 tablet 0 furosemide (LASIX) 40 mg tablet Take 1 tablet by mouth twice daily. 60 tablet 1 potassium chloride (K-TAB) 10 mEq tablet Take 2 tablets by mouth twice daily. 120 tablet 0 guaiFENesin (MUCINEX) 600 mg 12 hr tablet Take 1 tablet by mouth every 12 hours as needed (cough). 30 tablet 0 Ipratropium Sewell (ATROVENT) 21 mcg (0.03 %) nasal spray USE 1 SPRAY IN THE NOSE TWICE DAILY. 30 mL 2 montelukast (SINGULAIR) 10 mg tablet TAKE 1 TABLET BY MOUTH DAILY AT BEDTIME. 90 tablet 1 sertraline (ZOLOFT) 25 mg tablet TAKE 1 TABLET EVERY DAY 90 tablet 1 tamsulosin (FLOMAX) 0.4 mg TAKE 1 CAPSULE EVERY DAY 90 capsule 1 simvastatin (ZOCOR) 40 mg tablet TAKE 1 TABLET AT BEDTIME 90 tablet 1 allopurinol (ZYLOPRIM) 300 mg tablet TAKE 1 TABLET EVERY DAY 90 tablet 1 OTC PRODUCT L tryptophan OTC PRODUCT Super snooze night time sleep cetirizine (ZYRTEC) 10 mg tablet Take 10 mg by mouth once daily. Ibandronate 150 mg tablet TAKE 1 TABLET ONE TIME PER MONTH 3 tablet 3 omega-3/dha/epa/dpa/fish oil (OMEGA-3 2100 ORAL) Take by mouth. Orlistat (KUSUM) 60 mg capsule Take 120 mg by mouth twice daily with meals. POLYETHYLENE GLYCOL 3350 (MIRALAX ORAL) Take by mouth. Acetaminophen 500 mg cap Take 2 tablets by mouth twice daily. aspirin, enteric coated (ASPIRIN, ENTERIC COATED) 81 mg EC tablet Take 81 mg by mouth once daily. docusate sodium (COLACE) 100 mg capsule Take 300 mg by mouth once daily. No current facility-administered medications for this visit. ACTIVE PROBLEM LIST Hyperlipidemia Gout With Manifestations Chronic Low Back Pain Without Sciatica Elevated Alkaline Phosphatase Level Bilateral Leg Edema Kidney Stones Chronic Insomnia Peripheral Polyneuropathy Left Flank Pain Lung Nodules Vitamin D Deficiency Vitamin B12 Deficiency [place] (Generalized Anxiety Disorder) Obesity, Class III, BMI >= 40 Status Post Total Left Knee Replacement Status Post Total Right Knee Replacement Lumbar Degenerative Disc Disease Spinal Stenosis of Lumbar Region With Neurogenic Claudication Paget's Disease of Bone Diverticulitis Gallstones Compression Fracture of Body of Thoracic Vertebra (Hcc) Primary Osteoarthritis Involving Multiple Joints Seasonal Allergies Dermatitis Bmi 40.0-44.9, Adult (Hcc) Mild Intermittent Asthma, Uncomplicated Hypertension, Essential Nonrheumatic Aortic Valve Stenosis Nonrheumatic Mitral Valve Regurgitation Gerd With Esophagitis Pulmonary Fibrosis (Hcc) Chronic Hypoxemic Respiratory Failure (Hcc) Chronic Diastolic Chf (Congestive Heart Failure) ([facility]) Social History Tobacco Use Smoking status: Former Smoker Packs/day: 1.00 Years: 25.00 Pack years: 25.00 Types: Cigarettes Quit date: 02/27/1987 Years since quittin.2 Smokeless tobacco: Never Used Tobacco comment: Former smoker; Tobacco reviewed with patient 08/30/2015 Vaping Use Vaping Use: Never used Substance Use Topics Alcohol use: No Comment: Non-drinker Drug use: No Comment: No reported history Family History Problem Relation Age of Onset Prostate Cancer Father other (Uterine cancer) Father other (Myocardial infarction) Father Prostate Cancer Paternal Grandmother Prostate Cancer Paternal Uncle Diabetes Other other (Neck cancer) Brother Reviewed past medical history, family history and surgeries. All medications and supplements were reviewed with the patient. Pt sees the following specialists: Dr. Calle, log chipper, Dr. Hernández, picking machine operator Functional status and cognition assessed: fully functional physically and mentally Review of Systems Constitutional: Negative for chills, diaphoresis, fever, malaise/fatigue and weight loss. HENT: Negative for ear pain and hearing loss. Mouth soreness Eyes: Negative for blurred vision and double vision. Respiratory: Positive for cough. Negative for shortness of breath. Cardiovascular: Negative for chest pain, palpitations and leg swelling. Gastrointestinal: Negative for constipation, diarrhea and heartburn. Genitourinary: Negative for dysuria and frequency. Musculoskeletal: Negative for back pain, falls, joint pain and myalgias. Skin: Negative for itching and rash. Neurological: Positive for tingling, tremors and sensory change. Negative for dizziness, weakness and headaches. Endo/Heme/Allergies: Does not bruise/bleed easily. Psychiatric/Behavioral: Negative for depression and substance abuse. The patient does not have insomnia. Objective BP 122/70 (BP Site: Right Arm, BP Position: Sitting, BP Cuff Size: Regular Adult) Pulse 63 Temp36.7 C (98.1 F) Resp 16 Ht 158.8 cm (5' 2.5) Wt 113.6 kg (250 lb 6.4 oz) SpO2 98% BMI 45.07 kg/m Physical Exam Constitutional: Appearance: Normal appearance. She is obese. HENT: Head: Normocephalic and atraumatic. Comments: Erythema of the tongue, no white plaque Nose: Nose normal. Mouth/Throat: Mouth: Mucous membranes are moist. Dentition: Normal dentition. Eyes: General: Lids are normal. Extraocular Movements: Extraocular movements intact. Conjunctiva/sclera: Conjunctivae normal. Pupils: Pupils are equal, round, and reactive to light. Neck: Thyroid: No thyroid mass or thyromegaly. Vascular: No carotid bruit. Trachea: Phonation normal. Cardiovascular: Rate and Rhythm: Normal rate and regular rhythm. Heart sounds: Normal heart sounds. No murmur heard. No friction rub. No gallop. Pulmonary: Effort: Pulmonary effort is normal. Breath sounds: Normal breath sounds. No wheezing or rales. Abdominal: General: Bowel sounds are normal. There is no distension. Palpations: Abdomen is soft. There is no mass. Tenderness: There is no abdominal tenderness. Musculoskeletal: General: No swelling or tenderness. Normal range of motion. Cervical back: Normal range of motion and neck supple. No edema. Lymphadenopathy: Cervical: No cervical adenopathy. Skin: General: Skin is warm and dry. Findings: No erythema or rash. Nails: There is no clubbing. Neurological: Mental Status: She is alert and oriented to person, place, and time. Cranial Nerves: No cranial nerve deficit. Motor: Motor function is intact. Coordination: Coordination normal. Gait: Gait abnormal (walks with cane). Psychiatric: Attention and Perception: Attention normal. Mood and Affect: Mood and affect normal. Speech: Speech normal. Behavior: Behavior normal. Behavior is cooperative. Thought Content: Thought content normal. Cognition and Memory: Cognition and memory normal. Judgment: Judgment normal. ASSESSMENT/PLAN: 1. Nocturnal hypoxia - ICD9: 327.24, ICD10: G47.34 (primary diagnosis) Pt on oxygen at night only 2. Dermatitis - ICD9: 692.9, ICD10: L30.9 - HYDROXYZINE HCL 25 MG TABLET 3. Seasonal allergies - ICD9: 477.9, ICD10: J30.2 - MONTELUKAST 10 MG TABLET 4. ULYSSES (generalized anxiety disorder) - ICD9: 300.02, ICD10: F41.1 - SERTRALINE 25 MG TABLET 5. Hyperlipidemia, unspecified hyperlipidemia type - ICD9: 272.4, ICD10: E78.5 - SIMVASTATIN 40 MG TABLET 6. Kidney stones - ICD9: 592.0, ICD10: N20.0 - TAMSULOSIN 0.4 MG CAPSULE 7. Bilateral leg edema - ICD9: 782.3, ICD10: R60.0 - FUROSEMIDE 40 MG TABLET - POTASSIUM CHLORIDE ER 10 MEQ TABLET,EXTENDED RELEASE 8. Thrush - ICD9: 112.0, ICD10: B37.0 - NYSTATIN 100,000 UNIT/ML ORAL SUSPENSION 9. Tremors of nervous system - ICD9: 781.0, ICD10: R25.1 - CONSULT TO NEUROLOGY 10. Peripheral polyneuropathy - ICD9: 356.9, ICD10: G62.9 Will discuss with neurology 11. Obesity, Class III, BMI >= 40 - ICD9: 278.01, ICD10: E66.01 Lifestyle modification recommended 12. Adult BMI 45.0-49.9 kg/sq m (HCC) - ICD9: V85.42, ICD10: Z68.42 Lifestyle modification recommended Ally Espinosa DO documented in this [facility]03-24-2022 Miscellaneous Notes* Telephone Encounter - Roberto Willis MA - 05/12/2021 2:43 PM EDT pharmacy faxes requesting refills as follows: Last seen 04/19/21 . Last refill 02/08/21 . Pending Prescriptions Disp Refills TEMAZEPAM 30 MG CAPSULE 90 capsule 0 Sig: Take 1 capsule by mouth at bedtime as needed for up to 90 days. WILEY Class: C-IV ALFREDO: No Please review and advise. Roberto Willis MA documented in this [facility]03-24-2022 Miscellaneous Notes* Telephone Encounter - Mckenzie Carcamo MA - 05/12/2021 8:14 AM EDT Received a fax from [facility]. Therapy Continuation request. Placed in green folder to be filled out Mckenzie Carcamo MA documented in this [facility]03-22-2022 Miscellaneous Notes* Telephone Encounter - Roberto Willis MA - 05/10/2021 11:08 AM EDT pharmacy electronically requesting refills as follows: Last seen 04/19/21 . Last refill 03/02/21 . Pending Prescriptions Disp Refills GABAPENTIN 300 MG CAPSULE 270 capsule 0 Sig: TAKE 3 CAPSULES EVERY DAY AT BEDTIME ALFREDO: Yes Please review and advise. Roberto Willis MA documented in this [facility]03-08-2022 NoteELAINAO ID: [id number] Author: Jenelle Campos APRN.CLAUDIO Service: ? Author Type: Nurse Practitioner Type: Progress Notes Filed: 04/26/2021 1:47 PM Note Text: [facility] OUTPATIENT VISIT DATE April 26, 2021 OUTPATIENT VISIT TYPE NEW PRIMARY CARE PHYSICIAN: Ally Espinosa DO REFERRING PHYSICIAN: No referring provider defined for this encounter. CHIEF COMPLAINT: Patient presents with: Breathing Problem Leg Edema Heart Failure HISTORY OF PRESENT ILLNESS: Rosalba Abebe is a 70 year old female who presents today for a follow-up visit post hospitalization. Past medical history is significant for hyperlipidemia, gastroesophageal reflux disease, hypertension, insomnia, obstructive sleep apnea, osteopenia, chest pain and diastolic heart failure. The patient has had 1 hospital admissions in the past 12 months. The last admission was from 04/01 to 04/05 for management of acute sinusitis causing COPD exacerbation along with acute on chronic diastolic heart failure. She was given lasix, steroids and inhalers during her stay. Cardiology was consulted and increased her inderal to 40 mg TID from BID which did provide relief with chest discomfort. A desaturation study was performed in which the patient required 2 L of oxygen with activity. Admission weight: 245 lbs Discharge weight: 240 lbs Today, the patient reports feeling well. Wears oxygen at night or if her saturation is less than 90%. States her oxygen levels are always lower in the morning and can be 88%. Reports feeling minimally short of breath at that time. Shortness of breath occurs with physical activity. Swelling does occur in her legs and hands at times. She takes lasix 40 mg twice a day. Her inderal was increased to three times a day during her hospital stay, however she has decreased this to twice a day as her blood pressures were dropping. She uses three pillows to sleep. Reports chest discomfort occurs almost every night for which the inderal was increased. Discomfort lasts for a few minutes. Denies taking medication for this. Her weights at home range from 237 to 244 lbs. She follows fluid restriction and low sodium diet. Does not add salt to anything. IMPRESSION: NYHA Functional Class: II Stage: C heart failure Rosalba Abebe is a 70 year-old female who presents to the Heart Failure clinic to establish care following hospital discharge. She appears euvolemic on examination. However, her weight is up to 246 which is a lb higher than her admission weight. Dry weight was 240 lbs. With this, will increase lasix to 60 mg in the morning and she should continue to take her evening 40 mg. Instructed to take additional 20 mg lasix in the morning for three days starting on Sunday. She should call the office on Sunday to report weight. Encouraged continued fluid restriction along with low sodium diet. Continue to monitor blood pressure at home. She does use a wrist machine which may result in somewhat lower readings. Patient is scheduled to see pulmonary soon and will follow up regarding oxygen levels. Reviewed plan of care with patient. All questions answered at this time. PLAN AND RECOMMENDATIONS: ASSESSMENT/PLAN: 1. Chronic diastolic congestive heart failure (HCC) - ICD9: 428.32, 428.0, ICD10: I50.32 (primary diagnosis) - daily weights, call office if weight increases 3-4 lbs in a 1-4 day period -2 gm low sodium diet -activity as tolerated, rest breaks as needed -EF 61% From ECHO -take additional 20 mg lasix in the morning x 3 days -resume lasix 40 mg BID on Sunday -call office on Sunday with update on weight -follow up in [facility] Clinic on 08/30 at 1:00 or sooner if needed -BMP as previously ordered by PCP in 2 weeks 2. Hypertension, essential - ICD9: 401.9, ICD10: I10 -BP optimal during visit 118/57 mmHg -encourage DASH/low sodium diet -encourage exercise with rest breaks as needed -goal BP <130/80 mmHg -continue home BP monitoring 3. Mixed hyperlipidemia - ICD9: 272.2, ICD10: E78.2 -continue simvastatin -lipid panel 11/22/2020: LDL 69, HDL 64, total 156 Follow up appointment with Dr. Hernández on 08/10. SOB: Yes: with certain activities, climbing stairs Fatigue: No Orthopnea:Yes: 3 or more pillow(s) PND: No Edema:No Chest Pain:Yes: that occurs with rest and activity and lasts a few minutes Palpitations: No Dizziness/Lightheadedness:No Syncope:No Appetite: good Diet:low salt (2000 mg) Fluid Restriction: Yes: < 60 ounces Regular Exercise: No PAST MEDICAL HISTORY Diagnosis Date - Anemia due to vitamin B12 deficiency due to dietary causes - Benign essential hypertension - Bone pain - Chest pain possibly cardiac, continue baby aspirin daily - Colon cancer screening 06/2016 cologuard test negative - Electrocardiogram abnormal order for nuclear stress test to be done at [facility] - Essential hyperte (more content not included)...[facility] [id number] Note HNO ID: [id number] Author: LEONIE Rivera Service: Care Management Author Type: Goodwill Ambassador Type: Care Mgt Progress Note Filed: 04/05/2021 4:01 PM Note Text: CARE MANAGEMENT DISCHARGE NOTE SERVICE DATE: 04/05/2021 SERVICE TIME: 4:00 PM LOS: 4 days Admission Date: 04/01/2021 DISCHARGE ARRANGEMENT (list agency and phone number) Discharge Arrangement: Home with Self Care;Other: See Comment (Respiratory) Provider Name: Arnaud Avila CAREGIVER ASSESSMENT: Caregiver is ready, willing and able to meet the patient's needs as recommended by the inter-professional team:: Yes Does the patient have an acute stroke diagnosis, or has the patient had a stroke during this admission?: No Patient's transition needs and plan for meeting these needs: dc home with home O2 and self care HANDOFF COMMUNICATION: Handoff to: Primary Care Physician;Other Caregiver Primary Care Physician Name/Phone: Ally Espinosa DO [phone] Other Caregiver Name/Phone: Arnaud Avila [phone] TRANSPORTATION ARRANGEMENTS: Transportation Arrangements: Car ADDITIONAL CONTACT RESOURCES: Discharge Information Row Name Admission (Current) from 04/01/2021 in [facility] Durable Medical Equipment Agency [facility] [place] Equipment Needed Home Oxygen - call above number when arrive home to finish O2 set up Needs Prior to Discharge: None;Ready for Discharge Portable O2 tank has been delivered to pt's room by [facility] [place]. No other needs from for dc home today. Pt states to provide dc transport. SIGNATURE: LEONIE Rivera, PRINCIPAL LAW CLERK, CCM PATIENT NAME: Rosalba Abebe DATE: April 05, 2021 TIME: 4:00 PM PAGER/CONTACT #: [phone] NoteHNO ID: [id number] Author: LEONIE Rivera Service: Care Management Author Type: Goodwill Ambassador Type: Care Mgt Progress Note Filed: 04/05/2021 2:05 PM Note Text: CARE MANAGEMENT PROGRESS NOTE SERVICE DATE: 04/05/2021 SERVICE TIME: 2:05 PM LOS: 4 days IMM Follow Up Copy Given: Yes Copy given to:: Patient Method: In Person SIGNATURE: LEONIE Rivera, PRINCIPAL LAW CLERK, CCM PATIENT NAME: Rosalba Abebe DATE: April 05, 2021 TIME: 2:05 PM PAGER/CONTACT #: [phone] NoteHNO ID: [id number] Author: LEONIE Rivera Service: Care Management Author Type: Goodwill Ambassador Type: Care Mgt Progress Note Filed: 04/05/2021 1:59 PM Note Text: CARE MANAGEMENT PROGRESS NOTE SERVICE DATE: 04/05/2021 SERVICE TIME: 12:56 PM LOS: 4 days [place] of Choice Given: Yes Level of Care Discussed: Other: See Comment (Respiratory DME) Financial Disclosure Provided: Yes Financial Disclosure Comments: discussed with patient Provider List: DME Provider list within the patient's requested geographic area shared with the patient/family: No Needs Prior to Discharge: Equipment Delivery;Oxygen Set-up Respiratory completed desat study. Pt requires 2L O2 with ambulation. Met with pt at bedside to discuss coordination of O2 for dc home possibly later today. Pt agreeable to referral to [facility]. If they are unable to accept referral, she does not have preference on respiratory provider. Referral sent in [facility] to [facility], waiting response. Epic chat also sent to hospitalist requesting O2 script. Update 1:00pm - [facility] does not service pt's area. Referral sent to [facility] [place], awaiting response and awaiting script from hospitalist. Update 2:00pm - [facility] [place] has accepted referral and will deliver tank to pt's bedside for dc today. Script now in [facility] and sent to [facility] [place] via [facility]. SIGNATURE: LEONIE Rivera, PRINCIPAL LAW CLERK, CCM PATIENT NAME: Rosalba Abebe DATE: April 05, 2021 TIME: 12:56 PM PAGER/CONTACT #: [phone] NoteHNO ID: [id number] Author: Cassi Martinez APRN.CT TECHNICIAN Service: Cardiovascular Medicine Author Type: Nurse Practitioner Type: Progress Notes Filed: 04/05/2021 12:30 PM Note Text: [facility] CARDIOVASCULAR [facility]ICINE CONSULT NOTE (Template ID [id number]) Rosalba Thurmanbik [id number] PCP: Ally Espinosa DO Primary Fabrication Department Supervisor: None PRIMARY SERVICE: Internal Medicine CONSULTING SERVICE: Cardiovascular Medicine DATE OF ADMISSION: 04/01/2021 DATE OF CONSULT: 04/05/2021 Interval History: Patient seen laying in bed Reports increased SOB today and feeling tired, no cough She also has complaints of a headache. She slept well last night She denies chest pain or palpitations We reviewed her echo from yesterday that showed normal EF but grade II diastolic dysfunction - reviewed lifestyle modification and fluid intake BUN was up to 30 today - creat normal at 0.94 Na 135, K 4.0 ASSESSMENT AND RECOMMENDATIONS 1. Shortness of breath: - likely multifactorial as patient has history of COPD/bronchectasis/pulmonary fibrosis and history of mild aortic stenosis - NTProBNP mildly elevated on admission at 873 - Patient currently receiving IV lasix 20 mg TID at this time - her weight is unchanged from yesterday and she continue to have rales on exam. I would like to keep IV lasix for now. - Creatinine 0.94, BUN 30, K 4.0 - - She will likely need an increase in her PO Lasix home dose. Prior to admission she was on Lasix 40 mg PO every other day. Would benefit from daily diuretic use. We reviewed this today. Will consider change to PO lasix tomorrow if improvement in fluid status. - Echo yesterday showed EF 61% with mild concentric LVH and grade II diastolic dysfunction. Mitral valve with 2+ regurg - which is not significantly changed from previous. Her diastolic dysfunction has worsened since her last echo in 2019. - Low salt diet reviewed again. - Fluid intake reviewed. Patient taking in significant PO fluids. Advised 60oz per day recommended - On O2 - pulm is also following. ? 2. Bilateral lower extremity edema - Patient taking Lasix 20 mg IV push TID with good results - Creatinine 0.94, K 4.0 - weight unchanged in the last 24 hours. - Patient on home dose of Lasix 40 mg every other day - would benefit from daily use. - Low salt diet and fluid intake recommendations reviewed. ? 3. Hypertension - blood pressure suboptimally controlled - Propanolol was increased this admission to 40 mg TID ? 4. Mitral Valve Regurgitation - Echo yesterday showed 2+ MV regurgitation - Unchanged from echo in 2019 PAST MEDICAL HISTORY PAST MEDICAL HISTORY Diagnosis Date - Anemia due to vitamin B12 deficiency due to dietary causes - Benign essential hypertension - Bone pain - Chest pain possibly cardiac, continue baby aspirin daily - Colon cancer screening 06/2016 cologuard test negative - Electrocardiogram abnormal order for nuclear stress test to be done at [facility] - Essential hypertension continue meds - Fatty liver 11/2015 - Fibromyalgia - GERD (gastroesophageal reflux disease) take pantoprazole first thing in the morning on an empty stomach, at least 1/2 hour before eating - Hyperlipidemia - Insomnia - Joint pain - Kidney stone change tamsulosin to as needed - Left flank pain - Migraine consider trial of imitrex after stress test is completed and if it is wnl - Mini stroke 2015 - Morbid obesity (HCC) - Multiple joint pain - Multiple lacunar infarcts (HCC) - Obesity, unspecified - Obstructive sleep apnea syndrome consider CPAP titration in near future if morning headaches continue - Osteoarthritis of multiple joints s/p B/L TKR - Osteopenia 2015 - Peripheral neuropathy 02/2016 - Rib fracture - Solitary pulmonary nodule present on computed tomography of lung repeat CT of chest in 07/2016 - Stomach cramps - Tremor - Vitamin D deficiency PAST SURGICAL HISTORY Procedure Laterality Date - ARTHRP KNE CONDYLEANDPLATU MEDIALANDLAT COMPARTMENTS Bilateral - CARPAL TUNNEL Left 02/09/2014 - SECTION HX [facility] 1985 - COLONOSCOPY Removal of polyps, [facility] 01/2013 - F LITHOTRIPSY [facility], 8mm kidney stone, rt side w/ stent placement 2013 - TOTAL ABDOMINAL HYSTERECTOMY - OPPONENSPLASTY SUPFCIS TDN TR TYP EA TDN Left FAMILY HISTORY FAMILY HISTORY Problem Relation Age of Onset - Prostate Cancer Father - other (Uterine cancer) Father - other (Myocardial infarction) Father - Prostate Cancer Paternal Grandmother - Prostate Cancer Paternal Uncle - Diabetes Other - other (Neck cancer) Brother SOCIAL HISTORY Social History Tobacco Use - Smoking status: Former Smoker Quit date: 02/27/1987 Years since quittin.1 - Smokeless tobacco: Never Used - Tobacco comment: Former smoker; Tobacco reviewed with patient 08/30/2015 Vaping Use - Vaping Use: Never used Substance Use Topics - Alcoho (more content not included)...[facility] [id number] NoteHNO ID: [id number] Author: Gayla Olivas MD Service: Hospital Medicine Author Type: Physician Type: Progress Notes Filed: 04/04/2021 10:23 PM Note Text: DEPARTMENT OF HOSPITAL MEDICINE PROGRESS NOTE SERVICE DATE: 04/04/2021 SERVICE TIME: 3:00PM Hospital Medicine/Primary Attending: Gayla Olivas MD NIGHT AND WEEKEND COVERAGE: [place] COVERAGE: Days: [phone], please page attending physician. Nights: [phone], please page [place] Hospitalist Night coverage pager [phone]. Subjective INTERVAL HPI: Reports improved SOB Still feels Like his sinus drainage is in her chest and she cannot cough it up . Still with greenish rhinorrhea and some sore throat Still has chronic cough dry which is unchanged. Retrosternal chest pain much improved since dose of protonix was Increased . Still with intermittent left precordial CP worse with deep breath ,also with intermittent left flank pain Notes leg swelling and swelling on the hands Much improved. No fever,chills,N/V/D Current Facility-Administered Medications Medication Dose Route Frequency - cholecalciferol 3,000 Units tab(s) (VITAMIN D3) 3,000 Units ORAL DAILY - oxyCODONE-acetaminophen 5-325 mg 1-2 tablet (PERCOCET) 1-2 tablet ORAL q 6 H PRN - gabapentin 900 mg cap(s) (NEURONTIN) 900 mg ORAL AT BEDTIME - hydrOXYzine HCl 25 mg tab(s) (ATARAX) 25 mg ORAL TID PRN - cetirizine 10 mg tab(s) (ZyrTEC) 10 mg ORAL DAILY - simvastatin 40 mg tab(s) (ZOCOR) 40 mg ORAL AT BEDTIME - tamsulosin 0.4 mg cap(s) (FLOMAX) 0.4 mg ORAL DAILY - Orlistat cap 120 mg 120 mg ORAL BID w MEALS - allopurinol 300 mg tab(s) (ZYLOPRIM) 300 mg ORAL DAILY - docusate sodium 300 mg cap(s) (COLACE) 300 mg ORAL DAILY - montelukast 10 mg tab(s) (SINGULAIR) 10 mg ORAL AT BEDTIME - aspirin, enteric coated 81 mg tab(s) 81 mg ORAL DAILY - temazepam 30 mg cap(s) (RESTORIL) 30 mg ORAL HS PRN - sertraline 25 mg tab(s) (ZOLOFT) 25 mg ORAL DAILY - NaCl 0.9% iv flush bag 20 mL INTRAVENOUS PRN - sodium chloride 0.9 % (flush) 3-5 mL (BD POSIFLUSH) 3-5 mL INTRAVENOUS q 12 H - sodium chloride 0.9 % (flush) 2-10 mL (BD POSIFLUSH) 2-10 mL INTRAVENOUS q 12 H - ondansetron orally disintegrating 4 mg tab(s) (ZOFRAN ODT) 4 mg ORAL q 6 H PRN Or - ondansetron (PF) 4 mg injection (ZOFRAN) 4 mg INTRAVENOUS q 6 H PRN - aluminum-magnesium hydroxide-simethicone 200-200-20 mg/5 mL 30 mL (MAALOX,MYLANTA,MAG-AL PLUS) 30 mL ORAL q 6 H PRN - magnesium hydroxide 400 mg/5 mL 30 mL (MOM) 30 mL ORAL DAILY PRN - bisacodyl 10 mg suppository (DULCOLAX) 10 mg RECTAL DAILY PRN - acetaminophen 650 mg tab(s) (TYLENOL) 650 mg ORAL q 6 H PRN - ipratropium-albuterol 3 mL nebulizer solution (DUONEB) 3 mL INHALATION q 4 H while awake - perflutren lipid microspheres 1.1 mg/mL 1.3 mL injection (DEFINITY) 1.3 mL INTRAVENOUS DIRECTED PRN - potassium chloride ER 20 mEq tab(s) (K-DUR, KLOR-CON) 20 mEq ORAL BID - amoxicillin-clavulanic acid 875 mg tab(s) (AUGMENTIN) 875 mg ORAL q 12 H - lactobacillus rhamnosus 10 billion cell (CULTURELLE) capsule 1 capsule ORAL DAILY - propranolol 40 mg tab(s) (INDERAL) 40 mg ORAL TID - furosemide 20 mg injection (LASIX) 20 mg INTRAVENOUS TID - fluticasone-vilanterol 200-25 mcg/dose 1 Inhalation (BREO ELLIPTA) 1 Inhalation INHALATION DAILY - guaiFENesin 600 mg ER tab(s) (MUCINEX) 600 mg ORAL q 12 H - predniSONE 40 mg tab(s) (DELTASONE) 40 mg ORAL DAILY - pantoprazole DR 40 mg tab(s) (PROTONIX) 40 mg ORAL DAILY (6 AM) Objective PHYSICAL EXAM: BP 144/72 Pulse 70 Temp (Src) 98.2 (Oral) Resp 18 Ht 5' 3 (1.60m) Wt 239 lb 9.6 oz (108.7kg) SpO2 92% BMI 42.45 kg/(m2). O2 Therapy: Nasal Cannula, Liters: 1 Physical Exam Performed GENERAL: Alert, no distress, cooperative SINUS :Has chronic ;left maxillary tenderness due to plastic surgery but no frontal nor maxillary tenderness LUNGS: +Crackles lower lung zone (R>L)Otherwise no wheezes Nor rhonchi CARDIAC: Normal S1 and S2; no rubs, murmurs, or gallops ABDOMEN: Abdomen soft, non-tender, BS normal, No palpable masses ,No CVA tenderness BACK Tenderness over the left flank left post lower rib cage. EXTREMITIES: Appears full but no pitting edema , spider nevi NEURO:Awake,alert,oriented x3.Can move all extremities w/o focal deficit Lines, Drains, and Airways Line Peripheral 04/02/21 0309 Short Left Antecubital 22 Gauge 2 days Reviewed lines and needs to be continued: REASONS: Intravenous antibiotics, Telemetry and Electrolyte replacement DATA: Diagnostic tests reviewed for today's visit: 02 Requirement on Arrival: O2 Therapy: Nasal Cannula, Liters: 2, %FIO2: 2 02 Requirement Now: O2 Therapy: Nasal Cannula, Liters: 1 CXRAY: Emphysematous and fibrotic changes are again noted. Follow-up with two-view chest exam as indicated. EKG Changes on Arrival:not in chart nor epic No results found for: COVNP Albumin (g/dL) Date Value 04/04/2021 4.6 04/02/2021 3.7 (more content not included)...[facility] [id number] NoteHNO ID: [id number] Author: LEONIE Rivera Service: Care Management Author Type: Goodwill Ambassador Type: Care Mgt Progress Note Filed: 04/04/2021 12:20 PM Note Text: CARE MANAGEMENT PROGRESS NOTE SERVICE DATE: 04/04/2021 SERVICE TIME: 12:19 PM LOS: 3 days Needs Prior to Discharge: To Be Determined;Desat Study;Other: See Comment (medical clearance) EMR reviewed. Pt remains on 2L O2. Continue IV lasix. Monitor ability to wean pt's O2 prior to dc. If unable to wean, likely will need desat study prior to dc. CM team will continue to follow for dc needs. SIGNATURE: Rebecca Brown, WHOLESALE BUYER, PRINCIPAL LAW CLERK, CCM PATIENT NAME: Rosalba Abebe DATE: April 04, 2021 TIME: 12:19 PM PAGER/CONTACT #: [phone] NoteHNO ID: [id number] Author: Deepika Hernández DO Service: Cardiovascular Medicine Author Type: Physician Type: Progress Notes Filed: 04/04/2021 1:09 PM Note Text: [facility] CARDIOVASCULAR MEDICINE CONSULT NOTE (Template ID [id number]) Rosalba Abebe [id number] PCP: Ally Espinosa DO Primary Fabrication Department Supervisor: None PRIMARY SERVICE: Internal Medicine CONSULTING SERVICE: Cardiovascular Medicine DATE OF ADMISSION: 04/01/2021 DATE OF CONSULT: 04/04/2021 Interval History: Patient seen laying in bed She reports that her breathing is better today and that her swelling is improved on the lasix 3 times a day She reports that her hands are less puffy She denies CP, lightheadedness or palpitations She had an echo this AM She eats a diet higher in sodium but was open to discussions about lifestyle modification. ASSESSMENT AND RECOMMENDATIONS 1. Shortness of breath: - likely multifactorial as patient has history of COPD/bronchectasis/pulmonary fibrosis and history of mild aortic stenosis - NTProBNP mildly elevated on admission at 873 - Patient currently receiving IV lasix 20 mg TID at this time with improvement in her fluid status. - Creatinine 0.68, K 4.9 - She will likely need an increase in her PO Lasix home dose. Prior to admission she was on Lasix 40 mg PO every other day. Would benefit from daily diuretic use. - Echo today showed EF 61% with mild concentric LVH and grade II diastolic dysfunction. Mitral valve with 2+ regurg - which is not significantly changed from previous. Her diastolic dysfunction has worsened since her last echo in 2019. - Low salt diet reviewed. - On O2 - pulm is also following. 2. Bilateral lower extremity edema - Patient taking Lasix 20 mg IV push TID with good results - Creatinine 0.68, K 4.9 - weight down 2 kgs in the last 24 hours. - Patient on home dose of Lasix 40 mg every other day - would benefit from daily use. - Low salt diet reviewed. 3. Hypertension - blood pressure suboptimally controlled - Propanolol was increased this admission to 40 mg TID 4. Mitral Valve Regurgitation - Echo today showed 2+ MV regurgitation - Unchanged from echo in 2019 [facility] STAFF PHYSICIAN NOTE OF PERSONAL INVOLVEMENT IN CARE I have reviewed the progress note obtained and documented by the nurse practitioner and I personally participated in the diop components. I have discussed the case and management of the patient's care. The following comments revise or confirm relevant diop components of their note. IMPRESSION: This is a 70 year old female with h/o HTN, HLD, TIA, COPD/asthma presents with SOB x 1-2 weeks. Worsened over past few days. Now dyspnea with any exertion. Does have some mild orthopnea. She has had some response with weight reduction on diuretics. PLAN: We reviewed lifestyle adaptations for HFpEF including sodium restrictions which currently she is not doing. If she continues to improve then I would consider switching her to p.o. diuretics in the next 24 to 48 hours. SIGNATURE: Deepika Hernández DO DATE of SERVICE: April 04, 2021 TIME of SERVICE: 1:06 PM PAST MEDICAL HISTORY PAST MEDICAL HISTORY Diagnosis Date - Anemia due to vitamin B12 deficiency due to dietary causes - Benign essential hypertension - Bone pain - Chest pain possibly cardiac, continue baby aspirin daily - Colon cancer screening 06/2016 cologuard test negative - Electrocardiogram abnormal order for nuclear stress test to be done at [facility] - Essential hypertension continue meds - Fatty liver 11/2015 - Fibromyalgia - GERD (gastroesophageal reflux disease) take pantoprazole first thing in the morning on an empty stomach, at least 1/2 hour before eating - Hyperlipidemia - Insomnia - Joint pain - Kidney stone change tamsulosin to as needed - Left flank pain - Migraine consider trial of imitrex after stress test is completed and if it is wnl - Mini stroke 2016 - Morbid obesity (HCC) - Multiple joint pain - Multiple lacunar infarcts (HCC) - Obesity, unspecified - Obstructive sleep apnea syndrome consider CPAP titration in near future if morning headaches continue - Osteoarthritis of multiple joints s/p B/L TKR - Osteopenia 2015 - Peripheral neuropathy 02/2016 - Rib fracture - Solitary pulmonary nodule present on computed tomography of lung repeat CT of chest in 07/2016 - Stomach cramps - Tremor - Vitamin D deficiency PAST SURGICAL HISTORY Procedure Laterality Date - ARTHRP KNE CONDYLEANDPLATU MEDIALANDLAT COMPARTMENTS Bilateral - CARPAL TUNNEL Left 02/09/2014 - SECTION HX [facility] 1985 - COLONOSCOPY Removal of polyps, [facility] 01/2013 - F LITHOTRIPSY [facility], 8mm kidney stone, rt side w/ stent placement 2013 - TOTAL ABDOMINAL HYSTERECTOMY - OPPONENSPLASTY SUPFCIS TDN TR TYP EA TDN Left FAMILY HISTORY FAMILY HISTORY Problem Relation Age of Onset - Prostate Ca (more content not included)...[facility] [id number] NoteHNO ID: [id number] Author: Gayla Olivas MD Service: Hospital Medicine Author Type: Physician Type: Progress Notes Filed: 04/03/2021 8:13 PM Note Text: DEPARTMENT OF HOSPITAL MEDICINE PROGRESS NOTE SERVICE DATE: 04/03/2021 SERVICE TIME: 3:00PM Hospital Medicine/Primary Attending: Gayla Olivas MD NIGHT AND WEEKEND COVERAGE: [place] COVERAGE: Days: [phone], please page attending physician. Nights: [phone], please page [place] Hospitalist Night coverage pager [phone]. Subjective INTERVAL HPI: Reports improved SOB since starting steroids But chest is Feels tight . Feels Like his sinus drainage is in her chest and she cannot cough it up . Still with greenish rhinorrhea and some sore throat Still has chronic cough dry which is unchanged. Has retrosternal chest pain- chronic and intermittent left precordial CP recent , worse with deep breath Notes leg swelling and swelling on the hands Much improved. No fever,chills,N/V/D Current Facility-Administered Medications Medication Dose Route Frequency - cholecalciferol 3,000 Units tab(s) (VITAMIN D3) 3,000 Units ORAL DAILY - oxyCODONE-acetaminophen 5-325 mg 1-2 tablet (PERCOCET) 1-2 tablet ORAL q 6 H PRN - gabapentin 900 mg cap(s) (NEURONTIN) 900 mg ORAL AT BEDTIME - hydrOXYzine HCl 25 mg tab(s) (ATARAX) 25 mg ORAL TID PRN - cetirizine 10 mg tab(s) (ZyrTEC) 10 mg ORAL DAILY - simvastatin 40 mg tab(s) (ZOCOR) 40 mg ORAL AT BEDTIME - tamsulosin 0.4 mg cap(s) (FLOMAX) 0.4 mg ORAL DAILY - Orlistat cap 120 mg 120 mg ORAL BID w MEALS - allopurinol 300 mg tab(s) (ZYLOPRIM) 300 mg ORAL DAILY - docusate sodium 300 mg cap(s) (COLACE) 300 mg ORAL DAILY - montelukast 10 mg tab(s) (SINGULAIR) 10 mg ORAL AT BEDTIME - aspirin, enteric coated 81 mg tab(s) 81 mg ORAL DAILY - temazepam 30 mg cap(s) (RESTORIL) 30 mg ORAL HS PRN - sertraline 25 mg tab(s) (ZOLOFT) 25 mg ORAL DAILY - NaCl 0.9% iv flush bag 20 mL INTRAVENOUS PRN - sodium chloride 0.9 % (flush) 3-5 mL (BD POSIFLUSH) 3-5 mL INTRAVENOUS q 12 H - sodium chloride 0.9 % (flush) 2-10 mL (BD POSIFLUSH) 2-10 mL INTRAVENOUS q 12 H - ondansetron orally disintegrating 4 mg tab(s) (ZOFRAN ODT) 4 mg ORAL q 6 H PRN Or - ondansetron (PF) 4 mg injection (ZOFRAN) 4 mg INTRAVENOUS q 6 H PRN - aluminum-magnesium hydroxide-simethicone 200-200-20 mg/5 mL 30 mL (MAALOX,MYLANTA,MAG-AL PLUS) 30 mL ORAL q 6 H PRN - magnesium hydroxide 400 mg/5 mL 30 mL (MOM) 30 mL ORAL DAILY PRN - bisacodyl 10 mg suppository (DULCOLAX) 10 mg RECTAL DAILY PRN - acetaminophen 650 mg tab(s) (TYLENOL) 650 mg ORAL q 6 H PRN - ipratropium-albuterol 3 mL nebulizer solution (DUONEB) 3 mL INHALATION q 4 H while awake - perflutren lipid microspheres 1.1 mg/mL 1.3 mL injection (DEFINITY) 1.3 mL INTRAVENOUS DIRECTED PRN - potassium chloride ER 20 mEq tab(s) (K-DUR, KLOR-CON) 20 mEq ORAL BID - amoxicillin-clavulanic acid 875 mg tab(s) (AUGMENTIN) 875 mg ORAL q 12 H - lactobacillus rhamnosus 10 billion cell (CULTURELLE) capsule 1 capsule ORAL DAILY - propranolol 40 mg tab(s) (INDERAL) 40 mg ORAL TID - furosemide 20 mg injection (LASIX) 20 mg INTRAVENOUS TID - fluticasone-vilanterol 200-25 mcg/dose 1 Inhalation (BREO ELLIPTA) 1 Inhalation INHALATION DAILY - guaiFENesin 600 mg ER tab(s) (MUCINEX) 600 mg ORAL q 12 H - [START ON 04/04/2021] predniSONE 40 mg tab(s) (DELTASONE) 40 mg ORAL DAILY - [START ON 04/04/2021] pantoprazole DR 40 mg tab(s) (PROTONIX) 40 mg ORAL DAILY (6 AM) Objective PHYSICAL EXAM: BP 122/57 Pulse 74 Temp (Src) 98.4 (Oral) Resp 18 Ht 5' 3 (1.60m) Wt 243 lb 8 oz (110.5kg) SpO2 93% BMI 43.14 kg/(m2). O2 Therapy: Nasal Cannula-Humidified (7-15 LPM), Liters: 3.00 Physical Exam Performed GENERAL: Alert, no distress, cooperative SINUS :Has chronic ;left maxillary tenderness due to plastic surgery but no frontal nor maxillary tenderness LUNGS: +Crackles right lower lung zone Otherwise no wheezes Nor rhonchi CARDIAC: Normal S1 and S2; no rubs, murmurs, or gallops ABDOMEN: Abdomen soft, non-tender, BS normal, No palpable masses EXTREMITIES: Appears full but no pitting edema , spider nevi NEURO:Awake,alert,oriented x3.Can move all extremities w/o focal deficit Lines, Drains, and Airways Line Peripheral 04/02/21 0309 Short Left Antecubital 22 Gauge 1 day Reviewed lines and needs to be continued: REASONS: Intravenous antibiotics, Telemetry and Electrolyte replacement DATA: Diagnostic tests reviewed for today's visit: 02 Requirement on Arrival: O2 Therapy: Nasal Cannula, Liters: 2, %FIO2: 2 02 Requirement Now: O2 Therapy: Nasal Cannula-Humidified (7-15 LPM), Liters: 3.00 CXRAY: Emphysematous and fibrotic changes are again noted. Follow-up with two-view chest exam as indicated. EKG Changes on Arrival:not in chart nor epic No results found for: COVNP Albumin (g/dL) Date Value 04/02/2021 3.7 04/01/2021 4.3 11/22/2020 4.2 11/28/2019 4.7 10 (more content not included)...[id number] NoteHNO ID: [id number] Author: Gayla Olivas MD Service: Hospital Medicine Author Type: Physician Type: Progress Notes Filed: 04/03/2021 1:22 AM Note Text: DEPARTMENT OF HOSPITAL MEDICINE PROGRESS NOTE SERVICE DATE: 04/02/2021 SERVICE TIME: 2:46 PM Hospital Medicine/Primary Attending: Gayla Olivas MD NIGHT AND WEEKEND COVERAGE: [place] COVERAGE: Days: [phone], please page attending physician. Nights: [phone], please page [place] Hospitalist Night coverage pager [phone]. Subjective INTERVAL HPI: Reports improved SOB since starting steroids yesterday Patient complains of greenish rhinorrhea and some sore throat Still has chronic cough dry which is unchanged. Notes leg swelling and swelling on the hands Have been urinating a lot since starting lasix today No fever,chills,CP ,N/V/D Current Facility-Administered Medications Medication Dose Route Frequency - cholecalciferol 3,000 Units tab(s) (VITAMIN D3) 3,000 Units ORAL DAILY - oxyCODONE-acetaminophen 5-325 mg 1-2 tablet (PERCOCET) 1-2 tablet ORAL q 6 H PRN - gabapentin 900 mg cap(s) (NEURONTIN) 900 mg ORAL AT BEDTIME - hydrOXYzine HCl 25 mg tab(s) (ATARAX) 25 mg ORAL TID PRN - cetirizine 10 mg tab(s) (ZyrTEC) 10 mg ORAL DAILY - simvastatin 40 mg tab(s) (ZOCOR) 40 mg ORAL AT BEDTIME - tamsulosin 0.4 mg cap(s) (FLOMAX) 0.4 mg ORAL DAILY - propranolol 40 mg tab(s) (INDERAL) 40 mg ORAL BID - Orlistat cap 120 mg 120 mg ORAL BID w MEALS - allopurinol 300 mg tab(s) (ZYLOPRIM) 300 mg ORAL DAILY - docusate sodium 300 mg cap(s) (COLACE) 300 mg ORAL DAILY - montelukast 10 mg tab(s) (SINGULAIR) 10 mg ORAL AT BEDTIME - aspirin, enteric coated 81 mg tab(s) 81 mg ORAL DAILY - pantoprazole DR 20 mg tab(s) (PROTONIX) 20 mg ORAL DAILY (6 AM) - temazepam 30 mg cap(s) (RESTORIL) 30 mg ORAL HS PRN - sertraline 25 mg tab(s) (ZOLOFT) 25 mg ORAL DAILY - NaCl 0.9% iv flush bag 20 mL INTRAVENOUS PRN - sodium chloride 0.9 % (flush) 3-5 mL (BD POSIFLUSH) 3-5 mL INTRAVENOUS q 12 H - sodium chloride 0.9 % (flush) 2-10 mL (BD POSIFLUSH) 2-10 mL INTRAVENOUS q 12 H - ondansetron orally disintegrating 4 mg tab(s) (ZOFRAN ODT) 4 mg ORAL q 6 H PRN Or - ondansetron (PF) 4 mg injection (ZOFRAN) 4 mg INTRAVENOUS q 6 H PRN - aluminum-magnesium hydroxide-simethicone 200-200-20 mg/5 mL 30 mL (MAALOX,MYLANTA,MAG-AL PLUS) 30 mL ORAL q 6 H PRN - magnesium hydroxide 400 mg/5 mL 30 mL (MOM) 30 mL ORAL DAILY PRN - bisacodyl 10 mg suppository (DULCOLAX) 10 mg RECTAL DAILY PRN - acetaminophen 650 mg tab(s) (TYLENOL) 650 mg ORAL q 6 H PRN - ipratropium-albuterol 3 mL nebulizer solution (DUONEB) 3 mL INHALATION q 4 H while awake - methylPREDNISolone sod succinate(PF) 60 mg injection (SOLU-Medrol) 60 mg INTRAVENOUS q 8 H - sodium chloride 0.9 % (flush) 2-10 mL (BD POSIFLUSH) 2-10 mL INTRAVENOUS DIRECTED PRN And - perflutren lipid microspheres 1.1 mg/mL 1.3 mL injection (DEFINITY) 1.3 mL INTRAVENOUS DIRECTED PRN - furosemide 20 mg injection (LASIX) 20 mg INTRAVENOUS q 8 H - potassium chloride ER 20 mEq tab(s) (K-DUR, KLOR-CON) 20 mEq ORAL BID Objective PHYSICAL EXAM: BP 117/54 Pulse 96 Temp (Src) 98.8 (Oral) Resp 16 Ht 5' 3 (1.60m) Wt 247 lb (112.0kg) SpO2 93% BMI 43.76 kg/(m2). O2 Therapy: Nasal Cannula, Liters: 2.00, %FIO2: 2 Physical Exam Performed GENERAL: Alert, no distress, cooperative SINUS :Has chronic ;left maxillary tenderness due to plastic surgery but no frontal nor maxillary tenderness LUNGS: +Crackles right lower lung zone Otherwise no wheezes Nor rhonchi CARDIAC: Normal S1 and S2; no rubs, murmurs, or gallops ABDOMEN: Abdomen soft, non-tender, BS normal, No palpable masses EXTREMITIES: Appears full but no pitting edema , spider nevi NEURO:Awake,alert,oriented x3.Can move all extremities w/o focal deficit Lines, Drains, and Airways Line Peripheral 04/02/21 0309 Short Left Antecubital 22 Gauge <1 day Reviewed lines and needs to be continued: REASONS: Intravenous antibiotics, Telemetry and Electrolyte replacement DATA: Diagnostic tests reviewed for today's visit: 02 Requirement on Arrival: O2 Therapy: Nasal Cannula, Liters: 2, %FIO2: 2 02 Requirement Now: O2 Therapy: Nasal Cannula, Liters: 2.00, %FIO2: 2 CXRAY: Emphysematous and fibrotic changes are again noted. Follow-up with two-view chest exam as indicated. EKG Changes on Arrival:not in chart nor epic No results found for: COVNP Albumin (g/dL) Date Value 04/02/2021 3.7 04/01/2021 4.3 11/22/2020 4.2 11/28/2019 4.7 12/07/2018 3.6 12/24/2017 3.5 ALT (U/L) Date Value 04/02/2021 10 04/01/2021 13 11/22/2020 14 11/28/2019 10 12/07/2018 17 12/24/2017 19 AST (U/L) Date Value 04/02/2021 14 04/01/2021 19 11/22/2020 21 11/28/2019 17 12/07/2018 19 12/24/2017 19 Lipase (U/L) Date Value 12/24/2017 79 05/25/2015 89 03/03/2013 71 CRP (mg/dL) Date Value 07/12/2018 0.86 09/07/2017 0.71 CK (more content not included)...[place] [id number] NoteHNO ID: [id number] Author: Interface Note Service: ? Author Type: ? Type: Progress Notes Filed: 04/02/2021 3:04 AM Note Text: Epic Scheduled Downtime: 04/02/2021 1:00:00 AM to 04/02/2021 2:27:[address]24-2018 History of Past illness Narrative* Problem Noted Date Resolved Date Petechial rash 11/12/2017 07/19/2018 Bacterial sinusitis 09/28/2017 07/19/2018 documented as of this encounter (statuses as of 05/10/2021) [address]24-2018 History of Past illness Narrative* Problem Noted Date Resolved Date Petechial rash 11/12/2017 07/19/2018 Bacterial sinusitis 09/28/2017 07/19/2018 documented as of this encounter (statuses as of 05/12/2021) [address]24-2018 History of Past illness Narrative* Problem Noted Date Resolved Date Petechial rash 11/12/2017 07/19/2018 Bacterial sinusitis 09/28/2017 07/19/2018 documented as of this encounter (statuses as of 05/13/2021) [address]24-2018 History of Past illness Narrative* Problem Noted Date Resolved Date Petechial rash 11/12/2017 07/19/2018 Bacterial sinusitis 09/28/2017 07/19/2018 documented as of this encounter (statuses as of 05/31/2021) [address]24-2018 History of Past illness Narrative* Problem Noted Date Resolved Date Petechial rash 11/12/2017 07/19/2018 Bacterial sinusitis 09/28/2017 07/19/2018 documented as of this encounter (statuses as of 06/04/2021) [address]24-2018 History of Past illness Narrative* Problem Noted Date Resolved Date Petechial rash 11/12/2017 07/19/2018 Bacterial sinusitis 09/28/2017 07/19/2018 documented as of this encounter (statuses as of 06/06/2021) [address]24-2018 History of Past illness Narrative* Problem Noted Date Resolved Date Petechial rash 11/12/2017 07/19/2018 Bacterial sinusitis 09/28/2017 07/19/2018 documented as of this encounter (statuses as of 06/15/2021) [address]24-2018 History of Past illness Narrative* Problem Noted Date Resolved Date Petechial rash 11/12/2017 07/19/2018 Bacterial sinusitis 09/28/2017 07/19/2018 documented as of this encounter (statuses as of 06/24/2021) [address]24-2018 History of Past illness Narrative* Problem Noted Date Resolved Date Petechial rash 11/12/2017 07/19/2018 Bacterial sinusitis 09/28/2017 07/19/2018 documented as of this encounter (statuses as of 06/24/2021) [address]24-2018 History of Past illness Narrative* Problem Noted Date Resolved Date Petechial rash 11/12/2017 07/19/2018 Bacterial sinusitis 09/28/2017 07/19/2018 documented as of this encounter (statuses as of 07/14/2021) [address]24-2018 History of Past illness Narrative* Problem Noted Date Resolved Date Petechial rash 11/12/2017 07/19/2018 Bacterial sinusitis 09/28/2017 07/19/2018 documented as of this encounter (statuses as of 07/19/2021) [address]24-2018 History of Past illness Narrative* Problem Noted Date Resolved Date Petechial rash 11/12/2017 07/19/2018 Bacterial sinusitis 09/28/2017 07/19/2018 documented as of this encounter (statuses as of 07/20/2021) [address]24-2018 History of Past illness Narrative* Problem Noted Date Resolved Date Petechial rash 11/12/2017 07/19/2018 Bacterial sinusitis 09/28/2017 07/19/2018 documented as of this encounter (statuses as of 07/22/2021) [address]24-2018 History of Past illness Narrative* Problem Noted Date Resolved Date Petechial rash 11/12/2017 07/19/2018 Bacterial sinusitis 09/28/2017 07/19/2018 documented as of this encounter (statuses as of 07/28/2021) [address]24-2018 History of Past illness Narrative* Problem Noted Date Resolved Date Petechial rash 11/12/2017 07/19/2018 Bacterial sinusitis 09/28/2017 07/19/2018 documented as of this encounter (statuses as of 08/05/2021) [facility]09-24-2018 History of Past illness Narrative* Problem Noted Date Resolved Date Petechial rash 11/12/2017 07/19/2018 Bacterial sinusitis 09/28/2017 07/19/2018 documented as of this encounter (statuses as of 08/10/2021) [facility]24-2018 History of Past illness Narrative* Problem Noted Date Resolved Date Petechial rash 11/12/2017 07/19/2018 Bacterial sinusitis 09/28/2017 07/19/2018 documented as of this encounter (statuses as of 08/21/2021) [facility]-24-2018 History of Past illness Narrative* Problem Noted Date Resolved Date Petechial rash 11/12/2017 07/19/2018 Bacterial sinusitis 09/28/2017 07/19/2018 documented as of this encounter (statuses as of 09/21/2021) [place] [id number] History of Past illness Narrative* Problem Noted Date Resolved Date Petechial rash 11/12/2017 07/19/2018 Bacterial sinusitis 09/28/2017 07/19/2018 documented as of this encounter (statuses as of 09/21/2021) [facility]24-2018 History of Past illness Narrative* Problem Noted Date Resolved Date Petechial rash 11/12/2017 07/19/2018 Bacterial sinusitis 09/28/2017 07/19/2018 documented as of this encounter (statuses as of 09/28/2021) [facility]24-2018 History of Past illness Narrative* Problem Noted Date Resolved Date Petechial rash 11/12/2017 07/19/2018 Bacterial sinusitis 09/28/2017 07/19/2018 documented as of this encounter (statuses as of 09/29/2021) [place] [id number] History of Past illness Narrative* Problem Noted Date Resolved Date Petechial rash 11/12/2017 07/19/2018 Bacterial sinusitis 09/28/2017 07/19/2018 documented as of this encounter (statuses as of 10/13/2021) [place] [id number] History of Past illness Narrative* Problem Noted Date Resolved Date Petechial rash 11/12/2017 07/19/2018 Bacterial sinusitis 09/28/2017 07/19/2018 documented as of this encounter (statuses as of 10/20/2021) [place] [id number] History of Past illness Narrative* Problem Noted Date Resolved Date Petechial rash 11/12/2017 07/19/2018 Bacterial sinusitis 09/28/2017 07/19/2018 documented as of this encounter (statuses as of 10/28/2021) [place] [id number] History of Past illness Narrative* Problem Noted Date Resolved Date Petechial rash 11/12/2017 07/19/2018 Bacterial sinusitis 09/28/2017 07/19/2018 documented as of this encounter (statuses as of 11/02/2021) [place] [id number] History of Past illness Narrative* Problem Noted Date Resolved Date Petechial rash 11/12/2017 07/19/2018 Bacterial sinusitis 09/28/2017 07/19/2018 documented as of this encounter (statuses as of 11/09/2021) [place] [id number] History of Past illness Narrative* Problem Noted Date Resolved Date Petechial rash 11/12/2017 07/19/2018 Bacterial sinusitis 09/28/2017 07/19/2018 documented as of this encounter (statuses as of 11/11/2021) [place] [id number] History of Past illness Narrative* Problem Noted Date Resolved Date Petechial rash 11/12/2017 07/19/2018 Bacterial sinusitis 09/28/2017 07/19/2018 documented as of this encounter (statuses as of 11/17/2021) [place] [id number] History of Past illness Narrative* Problem Noted Date Resolved Date Petechial rash 11/12/2017 07/19/2018 Bacterial sinusitis 09/28/2017 07/19/2018 documented as of this encounter (statuses as of 11/17/2021) [place] [id number] History of Past illness Narrative* Problem Noted Date Resolved Date Petechial rash 11/12/2017 07/19/2018 Bacterial sinusitis 09/28/2017 07/19/2018 documented as of this encounter (statuses as of 11/18/2021) [place] [id number] History of Past illness Narrative* Problem Noted Date Resolved Date Petechial rash 11/12/2017 07/19/2018 Obesity, Class III, BMI >= 40 10/05/2017 Left flank pain 09/28/2017 11/18/2021 Bacterial sinusitis 09/28/2017 07/19/2018 documented as of this encounter (statuses as of 11/22/2021) [facility]-24-2018 History of Past illness Narrative* Problem Noted Date Resolved Date Petechial rash 11/12/2017 07/19/2018 Obesity, Class III, BMI >= 40 10/05/2017 Left flank pain 09/28/2017 11/18/2021 Bacterial sinusitis 09/28/2017 07/19/2018 documented as of this encounter (statuses as of 11/22/2021) [facility]24-2018 History of Past illness Narrative* Problem Noted Date Resolved Date Petechial rash 11/12/2017 07/19/2018 Obesity, Class III, BMI >= 40 10/05/2017 Left flank pain 09/28/2017 11/18/2021 Bacterial sinusitis 09/28/2017 07/19/2018 documented as of this encounter (statuses as of 11/24/2021) [facility]24-2018 History of Past illness Narrative* Problem Noted Date Resolved Date Petechial rash 11/12/2017 07/19/2018 Obesity, Class III, BMI >= 40 10/05/2017 Left flank pain 09/28/2017 11/18/2021 Bacterial sinusitis 09/28/2017 07/19/2018 documented as of this encounter (statuses as of 11/24/2021) [address]24-2018 History of Past illness Narrative* Problem Noted Date Resolved Date Petechial rash 11/12/2017 07/19/2018 Obesity, Class III, BMI >= 40 10/05/2017 Left flank pain 09/28/2017 11/18/2021 Bacterial sinusitis 09/28/2017 07/19/2018 documented as of this encounter (statuses as of 12/05/2021) [facility]24-2018 History of Past illness Narrative* Problem Noted Date Resolved Date Petechial rash 11/12/2017 07/19/2018 Obesity, Class III, BMI >= 40 10/05/2017 Left flank pain 09/28/2017 11/18/2021 Bacterial sinusitis 09/28/2017 07/19/2018 documented as of this encounter (statuses as of 12/08/2021) [facility]24-2018 History of Past illness Narrative* Problem Noted Date Resolved Date Petechial rash 11/12/2017 07/19/2018 Obesity, Class III, BMI >= 40 10/05/2017 Left flank pain 09/28/2017 11/18/2021 Bacterial sinusitis 09/28/2017 07/19/2018 documented as of this encounter (statuses as of 12/12/2021) [facility]24-2018 History of Past illness Narrative* Problem Noted Date Resolved Date Petechial rash 11/12/2017 07/19/2018 Obesity, Class III, BMI >= 40 10/05/2017 Left flank pain 09/28/2017 11/18/2021 Bacterial sinusitis 09/28/2017 07/19/2018 documented as of this encounter (statuses as of 12/14/2021) [facility]24-2018 History of Past illness Narrative* Problem Noted Date Resolved Date Petechial rash 11/12/2017 07/19/2018 Obesity, Class III, BMI >= 40 10/05/2017 Left flank pain 09/28/2017 11/18/2021 Bacterial sinusitis 09/28/2017 07/19/2018 documented as of this encounter (statuses as of 12/15/2021) [facility]24-2018 History of Past illness Narrative* Problem Noted Date Resolved Date Petechial rash 11/12/2017 07/19/2018 Obesity, Class III, BMI >= 40 10/05/2017 Left flank pain 09/28/2017 11/18/2021 Bacterial sinusitis 09/28/2017 07/19/2018 documented as of this encounter (statuses as of 12/26/2021) [place] [id number] History of Past illness Narrative* Problem Noted Date Resolved Date Petechial rash 11/12/2017 07/19/2018 Obesity, Class III, BMI >= 40 10/05/2017 Left flank pain 09/28/2017 11/18/2021 Bacterial sinusitis 09/28/2017 07/19/2018 documented as of this encounter (statuses as of 01/04/2022) [facility]24-2018 History of Past illness Narrative* Problem Noted Date Resolved Date Petechial rash 11/12/2017 07/19/2018 Obesity, Class III, BMI >= 40 10/05/2017 Left flank pain 09/28/2017 11/18/2021 Bacterial sinusitis 09/28/2017 07/19/2018 documented as of this encounter (statuses as of 01/10/2022) [facility]24-2018 History of Past illness Narrative* Problem Noted Date Resolved Date Petechial rash 11/12/2017 07/19/2018 Obesity, Class III, BMI >= 40 10/05/2017 Left flank pain 09/28/2017 11/18/2021 Bacterial sinusitis 09/28/2017 07/19/2018 documented as of this encounter (statuses as of 01/19/2022) [facility]24-2018 History of Past illness Narrative* Problem Noted Date Resolved Date Petechial rash 11/12/2017 07/19/2018 Obesity, Class III, BMI >= 40 10/05/2017 Left flank pain 09/28/2017 11/18/2021 Bacterial sinusitis 09/28/2017 07/19/2018 documented as of this encounter (statuses as of 01/20/2022) [facility] History of Past illness Narrative* Problem Noted Date Resolved Date Petechial rash 11/12/2017 07/19/2018 Obesity, Class III, BMI >= 40 10/05/2017 Left flank pain 09/28/2017 11/18/2021 Bacterial sinusitis 09/28/2017 07/19/2018 documented as of this encounter (statuses as of 01/27/2022) [place] [id number] History of Past illness Narrative* Problem Noted Date Resolved Date Petechial rash 11/12/2017 07/19/2018 Obesity, Class III, BMI >= 40 10/05/2017 Left flank pain 09/28/2017 11/18/2021 Bacterial sinusitis 09/28/2017 07/19/2018 documented as of this encounter (statuses as of 01/31/2022) [address]24-2018 History of Past illness Narrative* Problem Noted Date Resolved Date Petechial rash 11/12/2017 07/19/2018 Obesity, Class III, BMI >= 40 10/05/2017 Left flank pain 09/28/2017 11/18/2021 Bacterial sinusitis 09/28/2017 07/19/2018 documented as of this encounter (statuses as of 02/07/2022) [address]24-2018 History of Past illness Narrative* Problem Noted Date Resolved Date Petechial rash 11/12/2017 07/19/2018 Obesity, Class III, BMI >= 40 10/05/2017 Left flank pain 09/28/2017 11/18/2021 Bacterial sinusitis 09/28/2017 07/19/2018 documented as of this encounter (statuses as of 02/21/2022) [address]24-2018 History of Past illness Narrative* Problem Noted Date Resolved Date Petechial rash 11/12/2017 07/19/2018 Obesity, Class III, BMI >= 40 10/05/2017 Left flank pain 09/28/2017 11/18/2021 Bacterial sinusitis 09/28/2017 07/19/2018 documented as of this encounter (statuses as of 02/25/2022) [address]24-2018 History of Past illness Narrative* Problem Noted Date Resolved Date Petechial rash 11/12/2017 07/19/2018 Obesity, Class III, BMI >= 40 10/05/2017 Left flank pain 09/28/2017 11/18/2021 Bacterial sinusitis 09/28/2017 07/19/2018 documented as of this encounter (statuses as of 03/02/2022) [address]24-2018 History of Past illness Narrative* Problem Noted Date Resolved Date Petechial rash 11/12/2017 07/19/2018 Obesity, Class III, BMI >= 40 10/05/2017 Left flank pain 09/28/2017 11/18/2021 Bacterial sinusitis 09/28/2017 07/19/2018 documented as of this encounter (statuses as of 03/08/2022) [facility]24-2018 History of Past illness Narrative* Problem Noted Date Resolved Date Petechial rash 11/12/2017 07/19/2018 Obesity, Class III, BMI >= 40 10/05/2017 Left flank pain 09/28/2017 11/18/2021 Bacterial sinusitis 09/28/2017 07/19/2018 documented as of this encounter (statuses as of 03/08/2022) [facility]24-2018 History of Past illness Narrative* Problem Noted Date Resolved Date Petechial rash 11/12/2017 07/19/2018 Obesity, Class III, BMI >= 40 10/05/2017 Left flank pain 09/28/2017 11/18/2021 Bacterial sinusitis 09/28/2017 07/19/2018 documented as of this encounter (statuses as of 03/10/2022) [address]24-2018 History of Past illness Narrative* Problem Noted Date Resolved Date Petechial rash 11/12/2017 07/19/2018 Obesity, Class III, BMI >= 40 10/05/2017 Left flank pain 09/28/2017 11/18/2021 Bacterial sinusitis 09/28/2017 07/19/2018 documented as of this encounter (statuses as of 04/20/2022) [facility]24-2018 History of Past illness Narrative* Problem Noted Date Resolved Date Petechial rash 11/12/2017 07/19/2018 Obesity, Class III, BMI >= 40 10/05/2017 Left flank pain 09/28/2017 11/18/2021 Bacterial sinusitis 09/28/2017 07/19/2018 documented as of this encounter (statuses as of 04/26/2022) [address]24-2018 History of Past illness Narrative* Problem Noted Date Resolved Date Petechial rash 11/12/2017 07/19/2018 Obesity, Class III, BMI >= 40 10/05/2017 Left flank pain 09/28/2017 11/18/2021 Bacterial sinusitis 09/28/2017 07/19/2018 documented as of this encounter (statuses as of 05/01/2022) [address]24-2018 History of Past illness Narrative* Problem Noted Date Resolved Date Petechial rash 11/12/2017 07/19/2018 Obesity, Class III, BMI >= 40 10/05/2017 Left flank pain 09/28/2017 11/18/2021 Bacterial sinusitis 09/28/2017 07/19/2018 documented as of this encounter (statuses as of 05/15/2022) [facility]24-2018 History of Past illness Narrative* Problem Noted Date Resolved Date Petechial rash 11/12/2017 07/19/2018 Obesity, Class III, BMI >= 40 10/05/2017 Left flank pain 09/28/2017 11/18/2021 Bacterial sinusitis 09/28/2017 07/19/2018 documented as of this encounter (statuses as of 2022) [facility]24-2018 History of Past illness Narrative* Problem Noted Date Resolved Date Petechial rash 11/12/2017 07/19/2018 Obesity, Class III, BMI >= 40 10/05/2017 Left flank pain 09/28/2017 11/18/2021 Bacterial sinusitis 09/28/2017 07/19/2018 documented as of this encounter (statuses as of 06/08/2022) [facility]24-2018 History of Past illness Narrative* Problem Noted Date Resolved Date Petechial rash 11/12/2017 07/19/2018 Obesity, Class III, BMI >= 40 10/05/2017 Left flank pain 09/28/2017 11/18/2021 Bacterial sinusitis 09/28/2017 07/19/2018 documented as of this encounter (statuses as of 06/12/2022) [facility]24[facility]2018 History of Past illness Narrative* Problem Noted Date Resolved Date Petechial rash 11/12/2017 07/19/2018 Obesity, Class III, BMI >= 40 10/05/2017 Left flank pain 09/28/2017 11/18/2021 Bacterial sinusitis 09/28/2017 07/19/2018 documented as of this encounter (statuses as of 07/03/2022) [facility]09-24-2018 History of Past illness Narrative* Problem Noted Date Resolved Date Petechial rash 11/12/2017 07/19/2018 Obesity, Class III, BMI >= 40 10/05/2017 Left flank pain 09/28/2017 11/18/2021 Bacterial sinusitis 09/28/2017 07/19/2018 documented as of this encounter (statuses as of 08/07/2022) [facility]2018 History of Past illness Narrative* Problem Noted Date Resolved Date Petechial rash 11/12/2017 07/19/2018 Obesity, Class III, BMI >= 40 10/05/2017 Left flank pain 09/28/2017 11/18/2021 Bacterial sinusitis 09/28/2017 07/19/2018 documented as of this encounter (statuses as of 08/08/2022) [facility] History of Past illness Narrative* Problem Noted Date Resolved Date Petechial rash 11/12/2017 07/19/2018 Obesity, Class III, BMI >= 40 10/05/2017 Left flank pain 09/28/2017 11/18/2021 Bacterial sinusitis 09/28/2017 07/19/2018 documented as of this encounter (statuses as of 08/09/2022) [facility] History of Past illness Narrative* Problem Noted Date Resolved Date Petechial rash 11/12/2017 07/19/2018 Obesity, Class III, BMI >= 40 10/05/2017 Left flank pain 09/28/2017 11/18/2021 Bacterial sinusitis 09/28/2017 07/19/2018 documented as of this encounter (statuses as of 08/11/2022) [facility] History of Past illness Narrative* Problem Noted Date Diagnosed Date Resolved Date Petechial rash 11/12/2017 07/19/2018 Obesity, Class III, BMI >= 40 10/05/2017 11/18/2021 Left flank pain 09/28/2017 11/18/2021 Bacterial sinusitis 09/28/2017 07/20/19 19 documented as of this encounter (statuses as of 09/21/2022) [facility] History of Past illness Narrative* Problem Noted Date Diagnosed Date Resolved Date Petechial rash 11/12/2017 07/19/2018 Obesity, Class III, BMI >= 40 10/05/2017 11/18/2021 Left flank pain 09/28/2017 11/18/2021 Bacterial sinusitis 09/28/2017 07/20/19 19 documented as of this encounter (statuses as of 09/25/2022) [facility] History of Past illness Narrative* Problem Noted Date Diagnosed Date Resolved Date Petechial rash 11/12/2017 07/19/2018 Obesity, Class III, BMI >= 40 10/05/2017 11/18/2021 Left flank pain 09/28/2017 11/18/2021 Bacterial sinusitis 09/28/2017 07/20/19 19 documented as of this encounter (statuses as of 10/03/2022) [facility] History of Past illness Narrative* Problem Noted Date Diagnosed Date Resolved Date Petechial rash 11/12/2017 07/19/2018 Obesity, Class III, BMI >= 40 10/05/2017 11/18/2021 Left flank pain 09/28/2017 11/18/2021 Bacterial sinusitis 09/28/2017 07/20/19 19 documented as of this encounter (statuses as of 10/12/2022) [facility] History of Past illness Narrative* Problem Noted Date Diagnosed Date Resolved Date Petechial rash 11/12/2017 07/19/2018 Obesity, Class III, BMI >= 40 10/05/2017 11/18/2021 Left flank pain 09/28/2017 11/18/2021 Bacterial sinusitis 09/28/2017 07/20/19 19 documented as of this encounter (statuses as of 10/18/2022) [facility] History of Past illness Narrative* Problem Noted Date Diagnosed Date Resolved Date Petechial rash 11/12/2017 07/19/2018 Obesity, Class III, BMI >= 40 10/05/2017 11/18/2021 Left flank pain 09/28/2017 11/18/2021 Bacterial sinusitis 09/28/2017 07/20/19 19 documented as of this encounter (statuses as of 12/15/2022) [facility] History of Past illness Narrative* Problem Noted Date Diagnosed Date Resolved Date Petechial rash 11/12/2017 07/19/2018 Obesity, Class III, BMI >= 40 10/05/2017 11/18/2021 Left flank pain 09/28/2017 11/18/2021 Bacterial sinusitis 09/28/2017 07/20/19 19 documented as of this encounter (statuses as of 12/15/2022) [facility] History of Past illness Narrative* Problem Noted Date Diagnosed Date Resolved Date Petechial rash 11/12/2017 07/19/2018 Obesity, Class III, BMI >= 40 10/05/2017 11/18/2021 Left flank pain 09/28/2017 11/18/2021 Bacterial sinusitis 09/28/2017 07/20/19 19 documented as of this encounter (statuses as of 12/15/2022) [facility] History of Past illness Narrative* Problem Noted Date Diagnosed Date Resolved Date Petechial rash 11/12/2017 07/19/2018 Obesity, Class III, BMI >= 40 10/05/2017 11/18/2021 Left flank pain 09/28/2017 11/18/2021 Bacterial sinusitis 09/28/2017 07/20/19 19 documented as of this encounter (statuses as of 12/28/2022) [facility] History of Past illness Narrative* Problem Noted Date Diagnosed Date Resolved Date Petechial rash 11/12/2017 07/19/2018 Obesity, Class III, BMI >= 40 10/05/2017 11/18/2021 Left flank pain 09/28/2017 11/18/2021 Bacterial sinusitis 09/28/2017 07/20/19 19 documented as of this encounter (statuses as of 01/16/2023) [facility] History of Past illness Narrative* Problem Noted Date Diagnosed Date Resolved Date Petechial rash 11/12/2017 07/19/2018 Obesity, Class III, BMI >= 40 10/05/2017 11/18/2021 Left flank pain 09/28/2017 11/18/2021 Bacterial sinusitis 09/28/2017 07/20/19 19 documented as of this encounter (statuses as of 04/20/2023) [facility] History of Past illness Narrative* Problem Noted Date Diagnosed Date Resolved Date Petechial rash 11/12/2017 07/19/2018 Obesity, Class III, BMI >= 40 10/05/2017 11/18/2021 Left flank pain 09/28/2017 11/18/2021 Bacterial sinusitis 09/28/2017 07/20/19 19 documented as of this encounter (statuses as of 04/30/2023) [facility] History of Past illness Narrative* Problem Noted Date Diagnosed Date Resolved Date Petechial rash 11/12/2017 07/19/2018 Obesity, Class III, BMI >= 40 10/05/2017 11/18/2021 Left flank pain 09/28/2017 11/18/2021 Bacterial sinusitis 09/28/2017 07/20/19 19 documented as of this encounter (statuses as of 05/10/2023) [facility] History of Past illness Narrative* Problem Noted Date Diagnosed Date Resolved Date Petechial rash 11/12/2017 07/19/2018 Obesity, Class III, BMI >= 40 10/05/2017 11/18/2021 Left flank pain 09/28/2017 11/18/2021 Bacterial sinusitis 09/28/2017 07/20/19 19 documented as of this encounter (statuses as of 05/10/2023) [facility] History of Past illness Narrative* Problem Noted Date Diagnosed Date Resolved Date Petechial rash 11/12/2017 07/19/2018 Obesity, Class III, BMI >= 40 10/05/2017 11/18/2021 Left flank pain 09/28/2017 11/18/2021 Bacterial sinusitis 09/28/2017 07/20/19 19 documented as of this encounter (statuses as of 05/22/2023) [facility] History of Past illness Narrative* Problem Noted Date Diagnosed Date Resolved Date Petechial rash 11/12/2017 07/19/2018 Obesity, Class III, BMI >= 40 10/05/2017 11/18/2021 Left flank pain 09/28/2017 11/18/2021 Bacterial sinusitis 09/28/2017 07/20/19 19 documented as of this encounter (statuses as of 05/22/2023) [facility] Diagnosis Peripheral polyneuropathy Unspecified hereditary and idiopathic peripheral neuropathy [facility] Diagnosis Chronic insomnia Insomnia, unspecified [facility]* Diagnosis Mouth ulcers- Primary Other and unspecified diseases of the oral soft tissues documented in this encounter [facility] note* Diagnosis Nocturnal hypoxia- Primary Hypoxemia Dermatitis Contact dermatitis and other eczema, due to unspecified cause Seasonal allergies Allergic rhinitis, cause unspecified ULYSSES (generalized anxiety disorder) Generalized anxiety disorder Hyperlipidemia, unspecified hyperlipidemia type Kidney stones Calculus of kidney Bilateral leg edema Edema Thrush Candidiasis of mouth Tremors of nervous system Abnormal involuntary movements Peripheral polyneuropathy Unspecified hereditary and idiopathic peripheral neuropathy Obesity, Class III, BMI >= 40 Morbid obesity Adult BMI 45.0-49.9 kg/sq m ([facility]) Body Mass Index 45.0-49.9, adult documented in this encounter [facility] note* Diagnosis Peripheral polyneuropathy Unspecified hereditary and idiopathic peripheral neuropathy documented in this encounter [facility] note* 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 documented in this encounter [facility] note* Diagnosis Environmental allergies- Primary Other allergy, other than to medicinal agents documented in this encounter [facility] note* Diagnosis Seasonal allergies Allergic rhinitis, cause unspecified documented in this encounter [facility] note* Diagnosis Kidney stones Calculus of kidney documented in this encounter [facility] note* Diagnosis Seasonal allergies- Primary Allergic rhinitis, cause unspecified documented in this encounter [facility] note* Diagnosis Peripheral polyneuropathy Unspecified hereditary and idiopathic peripheral neuropathy documented in this encounter [facility] note* Diagnosis Chronic diastolic CHF (congestive heart failure) (HCC)- Primary Chronic diastolic heart failure Nonrheumatic aortic valve stenosis Aortic valve disorders Nonrheumatic mitral valve regurgitation Hypertension, essential Unspecified essential hypertension Mixed hyperlipidemia Chest pain, atypical Other chest pain documented in this encounter [facility] note* Diagnosis Chronic insomnia- Primary Insomnia, unspecified Peripheral polyneuropathy Unspecified hereditary and idiopathic peripheral neuropathy Obesity, Class III, BMI >= 40 Morbid obesity BMI 40.0-44.9, adult ([facility]) Body Mass Index 40.0-44.9, adult Encounter for immunization Need for other specified prophylactic vaccination against single bacterial disease documented in this encounter [facility] note* Diagnosis Chronic diastolic congestive heart failure (HCC)- Primary Chronic diastolic heart failure Hypertension, essential Unspecified essential hypertension Mixed hyperlipidemia Bilateral leg edema Edema [facility]* Diagnosis Chest pain, unspecified type- Primary documented [facility]* Diagnosis BMI 40.0-44.9, adult ([facility]) Body Mass Index 40.0-44.9, adult Hyperlipidemia Other and unspecified hyperlipidemia [facility]* Diagnosis ULYSSES (generalized anxiety disorder) Generalized anxiety disorder [facility]* Diagnosis Pulmonary fibrosis ([facility])- Primary Postinflammatory pulmonary fibrosis Mild persistent asthma without complication Unspecified asthma Morbid obesity ([facility]) Morbid obesity Chronic respiratory failure with hypoxia ([facility]) Chronic respiratory failure [facility]* Diagnosis ILD (interstitial lung disease) ([facility])- Primary Postinflammatory pulmonary fibrosis [facility]* Diagnosis Chest pain, unspecified type documented [facility] this [facility]* Diagnosis Chronic insomnia Insomnia, unspecified documented [facility]* Diagnosis Insomnia, unspecified type documented [facility] this [facility]* Diagnosis Gout with manifestations- Primary Gout with other specified manifestations [facility]* Diagnosis Vitamin D deficiency- Primary Unspecified vitamin D deficiency [facility]* Diagnosis Vitamin D deficiency- Primary Unspecified vitamin D deficiency [facility]* Diagnosis Chronic insomnia- Primary Insomnia, unspecified Tremors of nervous system Abnormal involuntary movements Chronic bilateral low back pain without sciatica ULYSSES (generalized anxiety disorder) Generalized anxiety disorder BMI 40.0-44.9, adult ([facility]) Body Mass Index 40.0-44.9, adult Morbid obesity with BMI of 40.0-44.9, adult ([facility]) Morbid obesity Peripheral polyneuropathy Unspecified hereditary and idiopathic peripheral neuropathy [facility] Diagnosis Chest pain, unspecified type- Primary Chronic diastolic CHF (congestive heart failure) ([facility]) Chronic diastolic heart failure Nonrheumatic aortic valve stenosis Aortic valve disorders Nonrheumatic mitral valve regurgitation Hypertension, essential Unspecified essential hypertension Mixed hyperlipidemia [facility] this [facility]* Diagnosis Gout with manifestations- Primary Gout with other specified manifestations Vitamin D deficiency Unspecified vitamin D deficiency documented [facility]* Diagnosis Seasonal allergies Allergic rhinitis, cause unspecified [facility] Diagnosis Blurred vision- Primary Other specified visual disturbances [facility] Diagnosis Chronic bilateral low back pain without sciatica documented [facility] Diagnosis Hypersensitivity pneumonitis (HCC)- Primary Unspecified allergic alveolitis and pneumonitis ILD (interstitial lung disease) (HCC) Postinflammatory pulmonary fibrosis Chronic respiratory failure with hypoxia (HCC) Chronic respiratory failure [facility] Diagnosis Chronic bilateral low back pain without sciatica [facility] Diagnosis ULYSSES (generalized anxiety disorder)- Primary Generalized anxiety disorder Chronic insomnia Insomnia, unspecified Chronic bilateral low back pain without sciatica Hyperlipidemia, unspecified hyperlipidemia type Gastroesophageal reflux disease with esophagitis without hemorrhage Chronic diastolic CHF (congestive heart failure) (HCC) Chronic diastolic heart failure Obesity, Class II, BMI 35-39.9 Obesity, unspecified Hypertensive heart disease with chronic diastolic congestive heart failure (HCC) documented [facility]* Diagnosis Kidney stones Calculus of kidney [facility]* Diagnosis Bilateral leg edema Edema [facility]* 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 [facility]* Diagnosis ILD (interstitial lung disease) (HCC) Postinflammatory pulmonary fibrosis [facility] Diagnosis ILD (interstitial lung disease) (HCC) Postinflammatory pulmonary fibrosis [facility] Diagnosis Chronic respiratory failure with hypoxia (HCC) Chronic respiratory failure [facility]* Diagnosis UYLSSES (generalized anxiety disorder) Generalized anxiety disorder [facility] Diagnosis Chronic insomnia Insomnia, unspecified [facility] Diagnosis Chronic bilateral low back pain without sciatica [facility] Diagnosis ULYSSES (generalized anxiety disorder) Generalized anxiety disorder [facility]* Diagnosis Seasonal allergies Allergic rhinitis, cause unspecified [facility]* Diagnosis Gastroesophageal reflux disease with esophagitis without hemorrhage Hyperlipidemia, unspecified hyperlipidemia type Chronic diastolic CHF (congestive heart failure) (HCC) Chronic diastolic heart failure [facility]* 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 Mild intermittent asthma, uncomplicated Unspecified asthma Hypoxemia [facility] this [facility]* Diagnosis Bilateral leg edema Edema documented in this encounter [facility] note* Diagnosis Chronic bilateral low back pain without sciatica Bilateral leg edema Edema documented in this encounter [facility] note* Diagnosis Gout with manifestations Gout with other specified manifestations [facility]* Diagnosis Seasonal allergies Allergic rhinitis, cause unspecified [facility]* Diagnosis Bilateral leg edema Edema [facility]* Diagnosis Hyperlipidemia, unspecified hyperlipidemia type Gastroesophageal reflux disease with esophagitis without hemorrhage Chronic diastolic CHF (congestive heart failure) (HCC) Chronic diastolic heart failure [facility]* Diagnosis Chronic insomnia Insomnia, unspecified documented [facility]* 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 documented in this encounter [facility] note* Diagnosis Vitamin D deficiency- Primary Unspecified vitamin D deficiency [facility]* Diagnosis Bird fancier's lung (HCC) Bird-fanciers' lung [facility]* Diagnosis Bird fancier's lung (HCC) Bird-fanciers' lung [facility] 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 Mild persistent asthma without complication Unspecified asthma Class II obesity Former cigarette smoker Personal history of tobacco use, presenting hazards to health documented in this encounter [facility] note* Diagnosis Chronic bilateral low back pain without sciatica [facility]* Diagnosis Hypertension, essential- Primary Unspecified essential hypertension Obesity, Class I, BMI 30-34.9 Obesity, unspecified documented [facility] this [facility]* Diagnosis Chronic insomnia Insomnia, unspecified [facility] Diagnosis Chronic bilateral low back pain without sciatica Chronic insomnia Insomnia, unspecified documented [facility]* Diagnosis Chronic insomnia Insomnia, unspecified documented [facility] this [facility]* Diagnosis Chronic insomnia Insomnia, unspecified documented [facility]* Diagnosis Kidney stones Calculus of kidney documented [facility] this [facility]* 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 Mild intermittent asthma without complication Unspecified asthma Class 2 obesity documented [facility] this [facility]* Diagnosis Hypertension, essential- Primary Unspecified essential hypertension Gout with manifestations Gout with other specified manifestations Obesity, Class I, BMI 30-34.9 Obesity, unspecified [facility]* 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 [facility]* Diagnosis Seasonal allergies Allergic rhinitis, cause unspecified [facility]* Diagnosis ULYSSES (generalized anxiety disorder)- Primary Generalized anxiety disorder [facility]* Diagnosis Gout with manifestations Gout with other specified manifestations [facility]* Diagnosis Gastroesophageal reflux disease with esophagitis without hemorrhage Chronic diastolic CHF (congestive heart failure) (HCC) Chronic diastolic heart failure Bilateral leg edema Edema Hyperlipidemia, unspecified hyperlipidemia type [facility]* Diagnosis Obesity, Class I, BMI 30-34.9 Obesity, unspecified [facility]* Diagnosis ULYSSES (generalized anxiety disorder)- Primary Generalized anxiety disorder [facility]* Diagnosis ULYSSES (generalized anxiety disorder)- Primary Generalized anxiety disorder [facility]* Diagnosis Encounter for screening mammogram for breast cancer [facility]* Diagnosis Hypertension, essential Unspecified essential hypertension [facility] Diagnosis Medicare annual wellness visit, subsequent- Primary Routine general medical examination at a health care facility Chronic diastolic CHF (congestive heart failure) (HCC) Chronic diastolic heart failure Loose stools Abnormal feces Lumbar back pain Lumbago Midline thoracic back pain, unspecified chronicity Nocturnal hypoxia Hypoxemia Other secondary parkinsonism (HCC) ILD (interstitial lung disease) (HCC) Postinflammatory pulmonary fibrosis Obesity, Class II, BMI 35-39.9 Obesity, unspecified 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 [facility] 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 documented in this encounter [facility] Diagnosis Subacute cough- Primary Cough Mild intermittent asthma without complication (HCC) Unspecified asthma Bird fancier's lung (HCC) Bird-fanciers' lung Former cigarette smoker Personal history of tobacco use, presenting hazards to health documented in this encounter [facility] Discharge instructionsAmbulatory Orders* Cardiology Location: None Selected [facility] Work Phone: [facility] Outpatient Procedure (Routine) - Closed Specialty Diagnoses / Procedures Referred By Katt prado Referred To Contact [facility] Diagnoses Chronic diastolic CHF (congestive heart failure) (HCC) Nonrheumatic aortic valve stenosis Nonrheumatic mitral valve regurgitation Hypertension, essential Mixed hyperlipidemia Chest pain, atypical Procedures ECG COMPLETE ECG ROUTINE ECG W/LEAST 12 LDS W/I&R Deepika Hernández DO [address] [id number] [facility] [address] [place] [address] Referral ID Status Reason Start Date Expiration Date V isits Requested Visits Authorized [id number] Closed Auto-Generate d Referral 08/10/2021 08/10/2022 1 1 [facility] for referral (narrative)* Diagnostic Procedure Only (Routine) - Pending Review Specialty Diagnoses / Procedures Referred By Katt prado Referred To Contact MOLECULAR & FUNCTIONAL IMAGING Diagnoses Chest pain, unspecified type Procedures NM CARDIAC PERF STRESS/PHARM MYOCARDIAL SPECT MULTIPLE STUDIES Deepika Hernández DO [address] [address] Molecular & Functional Imaging [address] [place] [address] Referral ID Status Reason Start Date Expiration Date Visits Requested Visits Authorized [id number] Pending Review Auto-Generat ed Referral 11/02/2021 12/02/2022 1 1 [facility] for referral (narrative)* Diagnostic Procedure Only (Routine) - Closed Specialty Diagnoses / Procedures Referred By Contac t Referred To Contact [facility]LEC[facility] FUN[facility]AGING Diagnoses Chest pain, unspecified type Procedures NM CARDIAC PERF STRESS/PHARM MYOCARDIAL SPECT MULTIPLE STUDIES Deepika Hernández DO [address] [address] Molecular & Functional Imaging [address] [place] [address] Referral ID Status Reason Start Date Expiration Date V isits Requested Visits Authorized [id number] Closed Auto-Generate d Referral 11/02/2021 12/02/2022 2 2 [facility] for referral (narrative)* Outpatient Procedure (Routine) - Authorized Specialty Diagnoses / Procedures Referred By Contac t Referred To Contact [facility] Diagnoses ILD (interstitial lung disease) (HCC) Procedures LUNG DIFFUSION CAPACITY (DLCO) DIFFUSING CAPACITY Nehal Calle MD [address] [place] [address] [address] Referral ID Status Reason Start Date Expiration Date Visits Requested Visits Authorized [id number] Authorized Auto-Generat ed Referral 03/10/2022 04/09/2023 1 1 * Outpatient Procedure (Routine) - Pending Review Specialty Diagnoses / Procedures [facility] Diagnoses ILD (interstitial lung disease) (HCC) Procedures LUNG VOLUMES Nehal Calle MD [address] [place] [address] [address] Referral ID Status Reason Start Date Expiration Date Visits Requested Visits Authorized [id number] Pending Review Auto-Generat ed Referral 03/10/2022 04/09/2023 1 1 * Outpatient Procedure (Routine) - Authorized Specialty Diagnoses / Procedures Referred By Contac t Referred To Contact [facility] [place] Diagnoses ILD (interstitial lung disease) (HCC) Procedures SPIROMETRY WITH DILATOR IF OBSTRUCTED BRNCDILAT RSPSE SPMTRY PRE&POST-BRNCDILAT ADMN Nehal Calle MD [address] [place] [address] [address] Referral ID Status Reason Start Date Expiration Date Visits Requested Visits Authorized [id number] Authorized Auto-Generat ed Referral 03/10/2022 04/09/2023 1 1 [facility] for referral (narrative)* Outpatient Procedure (Routine) - Authorized Specialty Diagnoses / Procedures Referred By Contac t Referred To Contact [facility] [place] Diagnoses Bird fancier's lung (HCC) Procedures LUNG DIFFUSION CAPACITY (DLCO) DIFFUSING CAPACITY Nehal Calle MD [address] [place] [address] [address] Referral ID Status Reason Start Date Expiration Date Visits Requested Visits Authorized [id number] Authorized Auto-Generat ed Referral 01/13/2024 1 1 * Outpatient Procedure (Routine) - Pending Review Specialty Diagnoses / Procedures Referred By Contac t Referred To Contact [facility] [place] Diagnoses Bird fancier's lung (HCC) Procedures LUNG VOLUMES Nehal Calle MD [address] [place] [address] [address] Referral ID Status Reason Start Date Expiration Date Visits Requested Visits Authorized [id number] Pending Review Auto-Generat ed Referral 3 01/13/2024 1 1 * Outpatient Procedure (Routine) - Authorized Specialty Diagnoses / Procedures Referred By Contac t Referred To [facility] [place] Diagnoses Bird fancier's lung (HCC) Procedures SPIROMETRY WITH DILATOR IF OBSTRUCTED BRNCDILAT RSPSE SPMTRY PRE&POST-BRNCDILAT ADMN Nehal Calle MD [address] [place] [address] [address] Referral ID Status Reason Start Date Expiration Date Visits Requested Visits Authorized [id number] Authorized Auto-Generat ed Referral 3 01/13/2024 1 1 * Outpatient Procedure (Routine) - Authorized Specialty Diagnoses / Procedures Referred By Contac t Referred To [facility] [place] Diagnoses Bird fancier's lung (HCC) Procedures OXIMETRY WITH AMBULATION NONINVASIVE EAR/PULSE OXIMETRY MULTIPLE DETER Nehal Calle MD [address] [place] [address] [address] Referral ID Status Reason Start Date Expiration Date Visits Requested Visits Authorized [id number] Authorized Auto-Generat ed Referral 3 01/13/2024 1 1 [facility] for referral (narrative)* Outpatient Procedure (Routine) - Authorized Specialty Diagnoses / Procedures Referred By Contac t Referred To [facility] [place] Diagnoses Hypersensitivity pneumonitis (HCC) Procedures LUNG DIFFUSION CAPACITY (DLCO) DIFFUSING CAPACITY Nehal Calle MD [address] [place] [address] [address] Referral ID Status Reason Start Date Expiration Date Visits Requested Visits Authorized [id number] Authorized Auto-Generat ed Referral 4 02/09/2025 1 1 * Outpatient Procedure (Routine) - Pending Review Specialty Diagnoses / Procedures Referred By Contac t Referred To Contact [facility] Diagnoses Hypersensitivity pneumonitis (HCC) Procedures LUNG VOLUMES Nehal Calle MD [address] [place] [address] [address] Referral ID Status Reason Start Date Expiration Date Visits Requested Visits Authorized [id number] Pending Review Auto-Generat ed Referral 4 02/09/2025 1 1 * Outpatient Procedure (Routine) - Authorized Specialty Diagnoses / Procedures Referred By Contac t Referred To Contact [facility] [place] Diagnoses Hypersensitivity pneumonitis (HCC) Procedures SPIROMETRY BASELINE ONLY SPMTRY W/VC EXPIRATORY HUNTER W/WO MXML VOL VNTJ Nehal Calle MD [address] [place] [address] [address] Referral ID Status Reason Start Date Expiration Date Visits Requested Visits Authorized [id number] Authorized Auto-Generat ed Referral 4 02/09/2025 1 1 [facility] for visit Narrative* Diagnostic Procedure Only (Routine) - Closed Specialty Diagnoses / Procedures Referred By Contac t Referred To Contact [facility]LEC[facility] FUN[facility]AGING Diagnoses Chest pain, unspecified type Procedures NM CARDIAC PERF STRESS/PHARM MYOCARDIAL SPECT MULTIPLE STUDIES Deepika Hernández DO [address] [address] Molecular & Functional Imaging [address] [phone] Referral ID Status Reason Start Date Expiration Date V isits Requested Visits Authorized [id number] Closed Auto-Generate d Referral 11/02/2021 12/02/2022 2 2 [facility] Summary Purpose Family History No Family History Records Found Relationship Condition Age at Onset Recorded Date/T katrina father Alcoholism Unknown Malignant neoplasm Unknown Cardiac disease Unknown Hypertension Unknown Disorder of liver Unknown mother Anxiety Unknown Arthritis Unknown Hemorrhagic disorder Unknown Disorder of intestine Unknown Depression Unknown brother Malignant neoplasm Unknown Malignant melanoma Unknown Malignant neoplasm of skin Unknown grandmother Diabetes mellitus Unknown uncle Diabetes mellitus Unknown Advance Directives No Advanced Directives Records FoundDocuments on File Type Date Recorded Patient Net C Developer Expl anation Advance Directive(s) Advance Directive(s) 04/02/2021 1:12 PM Advance Directive(s) 04/01/2021 10:39 AM Advance Directive(s) 10/04/2020 6:03 PM Advance Directive(s) 06/30/2018 12:51 PM Documents on File Type Date Recorded Patient Net C Developer Expl anation Advance Directive(s) Advance Directive(s) 04/02/2021 1:12 PM Advance Directive(s) 04/01/2021 10:39 AM Advance Directive(s) 10/04/2020 6:03 PM Advance Directive(s) 06/30/2018 12:51 PM Advance Directive Response Recorded Date/ Time Living Will No October 20 5:36pm Do you have a Healthcare Power of Research Associate Quality Control Qc? Yes October 20, 2020 5:36pm Chief Complaint Chief Complaint Description Start Date mid back pain Preliminary chief co mplaint data, not yet signed by the author as of Instructions Instruction Description Start Date Completed Assessments There may be information available, but it has not been provided by the sender. Review of System There may be information available, but it has not been provided by the sender. History of Present Illness There may be information available, but it has not been provided by the sender. Reason for Referral Specialty Diagnoses / Procedures Referred By Katt prado Referred To Contact Neurology Diagnoses Tremors of nervous system Procedures CONSULT TO NEUROLOGY OFFICE/OUTPATIENT [facility] 60-74 MINUTES Ally Espinosa DO [address] [place] [address] Referral ID Status Reason Start Date Expiration Date Visits Requested Visits Authorized [id number] Pending Review PCP Requested Referral 05/20/2021 05/20/2022 1 1 Specialty Diagnoses / Procedures Referred By Contac t Referred To Contact Diagnoses Environmental allergies Procedures CONSULT TO ENT OFFICE/OUTPATIENT [facility] 60-74 MINUTES Rocio Tinoco APRN.CT TECHNICIAN [address] [place] [address] Gabriele Hurt [address] [place] [address] Referral ID Status Reason Start Date Expiration Date V isits Requested Visits Authorized [id number] Pending Review 06/24/2021 06/24/2022 1 1 Specialty Diagnoses / Procedures Referred By Contac t Referred To Contact Diagnoses Seasonal allergies Procedures CONSULT TO ENT OFFICE/OUTPATIENT [facility] 60-74 MINUTES Ally Espinosa, DO [address] [place] [address] Gabriele Hurt [address] [place] [address] Referral ID Status Reason Start Date Expiration Date V isits Requested Visits Authorized [id number] Pending Review 07/28/2021 07/28/2022 1 1 Specialty Diagnoses / Procedures Referred By Contac t Referred To Contact CT IMAGING Diagnoses Interstitial pulmonary disease (HCC) Procedures CT CHEST WO IVCON DIAGNOSTIC COMPUTED TOMOGRAPHY THORAX W/O Nehal Mojica MD [address] [place] [address] Ct Imaging Referral ID Status Reason Start Date Expiration Date V isits Requested Visits Authorized [id number] Closed Auto-Generate d Referral 11/08/2021 12/08/2021 1 1 Specialty Diagnoses / Procedures Referred By Contac t Referred To Contact Ophthalmology / [facility] Department Diagnoses Blurred vision Procedures CONSULT TO OPHTHALMOLOGY OFFICE/OUTPATIENT [facility] 60-74 MINUTES Ally Espinosa, DO [address] [place] [address] Justin Bill [facility] [address] [place] [address] [place] [address] Referral ID Status Reason Start Date Expiration Date V isits Requested Visits Authorized [id number] Closed PCP Requested Referral 02/16/2022 02/16/2023 1 1 Specialty Diagnoses / Procedures Referred By Contac t Referred To Contact Ophthalmology / [facility] Department Diagnoses Blurred vision Procedures CONSULT TO OPHTHALMOLOGY OFFICE/OUTPATIENT [facility] 60-74 MINUTES Ally Espinosa, DO [address] [place] [address] Marck Meredith MD [facility] [place] [address] Referral ID Status Reason Start Date Expiration Date V isits Requested Visits Authorized [id number] Closed PCP Requested Referral 02/16/2022 02/16/2023 1 1 Specialty Diagnoses / Procedures Referred By Contac t Referred To Contact CT IMAGING Diagnoses Interstitial pulmonary disease (HCC) Procedures CT CHEST WO IVCON DIAGNOSTIC COMPUTED TOMOGRAPHY THORAX W/O CNTRST Nehal Calle MD [address] [place] [address] [place] [address] Referral ID Status Reason Start Date Expiration Date Visits Requested Visits Authorized [id number] Authorized Auto-Generat ed Referral 11/12/2023 07/20/2024 1 1 Specialty Diagnoses / Procedures Referred By Contac t Referred To Contact Diagnoses Seasonal allergies Ally Espinosa, DO [address] [place] [address] Referral ID Status Reason Start Date Expiration Date Visits Re quested Visits Authorized [id number] Closed 1 1 Chief Complaint and Reason for Visit Chief Complaint Admit Date Consult June 03, 2024 8:5 0am EORDERS June 03, 2024 10: 32am Reason for Visit Admit Date Carotid bruit June 03, 2024 8:5 0am History of TIA (transient ischemic attac k) June 03, 2024 8:50am History of vitamin D deficiency June 032024 8:50am Parkinson's disease June 03, 2024 8:5 0am Polyneuropathy June 03, 2024 8:5 0am Chief Complaint Admit Date Consult June 03, 2024 8:5 0am EORDERS June 03, 2024 10: 32am CHF (BADDOUR) June 20, 2024 1:50pm R/CAROTID BRUIT June 23, 2024 1:46pm Reason for Visit Admit Date Carotid bruit June 03, 2024 8:5 0am History of TIA (transient ischemic attac k) June 03, 2024 8:50am History of vitamin D deficiency June 032024 8:50am Parkinson's disease June 03, 2024 8:5 0am Polyneuropathy June 03, 2024 8:5 0am Chest pain June 20, 2024 1:50pm CHF (congestive heart failure) June 20, 2024 1:50pm History of TIA (transient ischemic attac k) June 20, 2024 1:50pm Polypharmacy June 20, 2024 1:50pm Hypertension June 20, 2024 1:50pm Chief Complaint Admit Date Consult June 03, 2024 8:5 0am EORDERS June 03, 2024 10: 32am CHF (BADDOUR) June 20, 2024 1:50pm R/CAROTID BRUIT June 23, 2024 1:46pm HISTORY OF TIA July 01, 2024 10:22 am Chief Complaint Admit Date Consult June 03, 2024 8:5 0am EORDERS June 03, 2024 10: 32am CHF (BADDOUR) June 20, 2024 1:50pm R/CAROTID BRUIT June 23, 2024 1:46pm HISTORY OF TIA July 01, 2024 10:22 am 6 wks July 15, 2024 1:32p m Reason for Visit Admit Date Carotid bruit June 03, 2024 8:5 0am History of TIA (transient ischemic attac k) June 03, 2024 8:50am History of vitamin D deficiency June 032024 8:50am Parkinson's disease June 03, 2024 8:5 0am Polyneuropathy June 03, 2024 8:5 0am Chest pain June 20, 2024 1:50pm CHF (congestive heart failure) June 20, 2024 1:50pm History of TIA (transient ischemic attac k) June 20, 2024 1:50pm Polypharmacy June 20, 2024 1:50pm Hypertension June 20, 2024 1:50pm Carotid bruit July 15, 2024 1:32p m History of TIA (transient ischemic attac k) July 15, 2024 1:32pm History of vitamin D deficiency June 1:32pm Parkinson's disease July 15, 2024 1:32p m Polyneuropathy July 15, 2024 1:32p m Additional Source Comments INFORMATION SOURCE (unrecogn ized section and content) DATE CREATED AUTHOR 12/07/2018 [facility] DATE CREATED AUTHOR AUTHOR'S ORGANIZ ATION 03/02/2022 [facility] DATE CREATED AUTHOR AUTHOR'S ORGANIZ ATION 07/27/2024 [facility] DATE CREATED AUTHOR AUTHOR'S ORGANIZ ATION 07/29/2024 [facility] DATE CREATED AUTHOR AUTHOR'S ORGANIZ ATION 08/03/2024 [facility] Reason for Visit (unrecogniz ed section and content) Reason For Visit Description New - 1st visit with practice Preliminary reason f or visit data, not yet signed by the author as of mid back pain Reason Comments Refill Request Reason Onset Date Comments Refill Request 05/12/2021 Reason Comments Rx Refills Reason Comments Patient Question Reason Comments 4 week follow up hypoxia and CHF states the tessalon pearls are not helping Reason Comments Medication Problem Patient Update Reason Comments Referral Request ENT Reason Comments Search Director - Other CHF Reason Comments Cardiology Follow Up sob Reason Comments F/U 3 months anxiety Reason Comments Patient Update Reason Onset Date Comments Population Health Navigation Outreach 09/28/2021 [employer] care gaps Reason Comments Leg Edema Breathing Problem Reason Comments Stress Test Reason Comments Radiology CT Specialty Diagnoses / Procedures Referred By Contac t Referred To Contact CT IMAGING Diagnoses Interstitial pulmonary disease (HCC) Procedures CT CHEST WO IVCON DIAGNOSTIC COMPUTED TOMOGRAPHY THORAX W/O Nehal Mojica MD [address] [place] [address] Ct Imaging Referral ID Status Reason Start Date Expiration Date V isits Requested Visits Authorized [id number] Closed Auto-Generate d Referral 11/08/2021 12/08/2021 1 1 Reason Comments Follow Up Reason Comments Orders Reason Onset Date Comments Refill Request 12/12/2021 Forms 12/12/2021 Taylor dumont Reason Comments Medication Problem Reason Comments Lab Orders Reason Comments Results Reason Comments medication coverage Lorazepam prior auth Reason Comments polyneuropathy Sleep Problem Stopped temazepam wa nts to discuss this Reason Comments Cardiology Follow Up No issues Reason Comments Patient Question Reason Comments Medication Problem Refill sent to Mail Order pharmacy for isosorbide- 90 day supplyMewally Campos, [employer] 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 Reason Onset Date Comments Refill Request 03/07/2022 Reason Comments Established Patient 3 month follow up PF Reason Comments 3 month follow up insomnia Reason Comments Spirometry Specialty Diagnoses / Procedures [facility] Diagnoses ILD (interstitial lung disease) ([facility]) Procedures SPIROMETRY WITH DILATOR IF OBSTRUCTED BRNCDILAT RSPSE SPMTRY PRE&POST-BRNCDILAT ADMN Nehal Calle MD [address] [place] [address] Res[address] [place] [phone] Referral ID Status Reason Start Date Expiration Date V isits Requested Visits Authorized [id number] Closed Auto-Generate d Referral 03/10/2022 04/09/2023 1 1 Specialty Diagnoses / Procedures Referred By [facility] Referred To Contact [facility] [place] Diagnoses ILD (interstitial lung disease) ([facility]) Procedures LUNG VOLUMES PLETHYSMOGRAPHY LUNG VOLUMES W/WO AIRWAY RESIST Nehal Calle MD [address] [place] [address] [place] [address] Referral ID Status Reason Start Date Expiration Date V isits Requested Visits Authorized [id number] Closed Auto-Generate d Referral 06/12/2022 02/18/2023 1 1 Specialty Diagnoses / Procedures Referred By [facility] Referred To Contact [facility] [place] Diagnoses ILD (interstitial lung disease) ([facility]) Procedures LUNG DIFFUSION CAPACITY (DLCO) DIFFUSING CAPACITY Nehal Calle MD [address] [place] [address] [address] Referral ID Status Reason Start Date Expiration Date V isits Requested Visits Authorized [id number] Closed Auto-Generate d Referral 03/10/2022 04/09/2023 1 1 Specialty Diagnoses / Procedures Referred By Contac t Referred To Contact [facility] [place] Diagnoses Chronic respiratory failure with hypoxia (HCC) Procedures OXIMETRY WITH AMBULATION NONINVASIVE EAR/PULSE OXIMETRY Leslie Cortes PA-C [address] [place] [address] [address] Referral ID Status Reason Start Date Expiration Date V isits Requested Visits Authorized [id number] Closed Auto-Generate d Referral 06/12/2022 07/12/2023 1 1 Reason Onset Date Comments Refill Request 08/08/2022 Reason Comments Patient Question Recommendation for d octors Reason Comments Follow Up Reason Onset Date Comments Refill Request 12/14/2022 Reason Comments Jury Duty Reason Comments Referral Request Specialty Diagnoses / Procedures Referred By Contac t Referred To Contact [facility] [place] Diagnoses Bird fancier's lung (HCC) Procedures LUNG VOLUMES Nehal Calle MD [address] [place] [address] [address] Referral ID Status Reason Start Date Expiration Date V isits Requested Visits Authorized [id number] Closed Auto-Generate d Referral 05/17/2023 02/19/2024 1 1 Specialty Diagnoses / Procedures Referred By Contac t Referred To Contact [facility] [place] Diagnoses Bird fancier's lung (HCC) Procedures SPIROMETRY WITH DILATOR IF OBSTRUCTED BRNCDILAT RSPSE SPMTRY PRE&POST-BRNCDILAT ADMNehal Mcdaniel MD [address] [place] [address] [address] Referral ID Status Reason Start Date Expiration Date V isits Requested Visits Authorized [id number] Closed Auto-Generate d Referral 12/14/2022 01/13/2024 1 1 Specialty Diagnoses / Procedures Referred By Contac t Referred To Contact [facility] Diagnoses Bird fancier's lung (HCC) Procedures OXIMETRY WITH AMBULATION NONINVASIVE EAR/PULSE OXIMETRY MULTIPLE DETER Nehal Calle MD [address] [place] [address] [address] Referral ID Status Reason Start Date Expiration Date V isits Requested Visits Authorized [id number] Closed Auto-Generate d Referral 12/14/2022 01/13/2024 1 1 Specialty Diagnoses / Procedures Referred By Contac t Referred To Contact [facility] Diagnoses Bird fancier's lung (HCC) Procedures LUNG DIFFUSION CAPACITY (DLCO) DIFFUSING CAPACITY Nehal Calle MD [address] [place] [address] [address] Referral ID Status Reason Start Date Expiration Date V isits Requested Visits Authorized [id number] Closed Auto-Generate d Referral 12/14/2022 01/13/2024 1 1 Reason Comments Established Patient Reason Onset Date Comments Refill Request 06/22/2023 Reason Comments F/U 6 months Reason Onset Date Comments Refill Request 07/03/2023 Reason Onset Date Comments Refill Request 08/11/2023 Reason Onset Date Comments Refill Request 09/10/[address] Specialty Diagnoses / Procedures Referred By Contac t Referred To Contact CT IMAGING Diagnoses Interstitial pulmonary disease (HCC) Procedures CT CHEST WO IVCON DIAGNOSTIC COMPUTED TOMOGRAPHY THORAX W/O CNTRST Nehal Calle MD [address] [facility] [address] [place] [address] Referral ID Status Reason Start Date Expiration Date V isits Requested Visits Authorized [id number] Closed Auto-Generate d Referral 11/12/2023 07/20/2024 1 1 Reason Comments Established Patient Follow-Up F/u CT Pulmonary Fibrosis Fibrotic HP Reason Comments F/U HTN 6 Month Reason Comments Refill Request Reason Onset Date Comments Population Health Navigation Outreach 06/24/2024 [employer] Attributed Member- Chart Review Reason Comments Medicare Wellness Exam Pt doesn't rememb er what meds she is on. She forgot her meds . Also she forgot forms to be filled out. Specialty Diagnoses / Procedures Referred By Katt prado Referred To [facility] [place] Diagnoses Hypersensitivity pneumonitis (HCC) Procedures LUNG DIFFUSION CAPACITY (DLCO) DIFFUSING CAPACITY Nehal Calle MD [address] [place] [address] Phone: tel: fax: [place] [phone] Referral ID Status Reason Start Date Expiration Date V isits Requested Visits Authorized [id number] Closed Auto-Generate d Referral 01/11/2024 02/09/2025 1 1 Specialty Diagnoses / Procedures Referred By Katt prado Referred To [facility] [place] Diagnoses Hypersensitivity pneumonitis (HCC) Procedures SPIROMETRY BASELINE ONLY SPMTRY W/VC EXPIRATORY HUNTER W/WO MXML VOL VNTJ Nehal Calle MD [address] [place] [address] Phone: tel: fax: [address] [address] Referral ID Status Reason Start Date Expiration Date V isits Requested Visits Authorized [id number] Closed Auto-Generate d Referral 01/11/2024 02/09/2025 1 1 [facility] Diagnoses [facility] Diagnoses Hypersensitivity pneumonitis (HCC) Procedures LUNG VOLUMES PLETHYSMOGRAPHY LUNG VOLUMES W/WO AIRWAY RESIST Nehal Calle MD [address] [place] [address] Phone: tel: fax: [place] [phone] Referral ID Status Reason Start Date Expiration Date V isits Requested Visits Authorized [id number] Closed Auto-Generate d Referral 07/31/2024 02/18/2025 1 1 Reason Comments Established Patient 6 month follow up Source Comments (unrecognize d section and content) In the event this informatio n is protected by the Federal Confidentiality of Alcohol and Drug Abuse Patient Records regulations: The Federal rules restrict any use of the information to criminally investigate or prosecute any alcohol or drug abuse patient.[facility] the event this information is protected by the Federal Confidentiality of Alcohol and Drug Abuse Patient Records regulations: The Federal rules restrict any use of the information to criminally investigate or prosecute any alcohol or drug abuse patient.[facility] HospitalIn the event this information is protected by the Federal Confidentiality of Alcohol and Drug Abuse Patient Records regulations: The Federal rules restrict any use of the information to criminally investigate or prosecute any alcohol or drug abuse patient.[facility] HospitalIn the event this information is protected by the Federal Confidentiality of Alcohol and Drug Abuse Patient Records regulations: The Federal rules restrict any use of the information to criminally investigate or prosecute any alcohol or drug abuse patient.[facility] HospitalIn the event this information is protected by the Federal Confidentiality of Alcohol and Drug Abuse Patient Records regulations: The Federal rules restrict any use of the information to criminally investigate or prosecute any alcohol or drug abuse patient.[facility] HospitalIn the event this information is protected by the Federal Confidentiality of Alcohol and Drug Abuse Patient Records regulations: The Federal rules restrict any use of the information to criminally investigate or prosecute any alcohol or drug abuse patient.[facility] HospitalIn the event this information is protected by the Federal Confidentiality of Alcohol and Drug Abuse Patient Records regulations: The Federal rules restrict any use of the information to criminally investigate or prosecute any alcohol or drug abuse patient.[facility] HospitalIn the event this information is protected by the Federal Confidentiality of Alcohol and Drug Abuse Patient Records regulations: The Federal rules restrict any use of the information to criminally investigate or prosecute any alcohol or drug abuse patient.[facility] HospitalIn the event this information is protected by the Federal Confidentiality of Alcohol and Drug Abuse Patient Records regulations: The Federal rules restrict any use of the information to criminally investigate or prosecute any alcohol or drug abuse patient.[facility] HospitalIn the event this information is protected by the Federal Confidentiality of Alcohol and Drug Abuse Patient Records regulations: The Federal rules restrict any use of the information to criminally investigate or prosecute any alcohol or drug abuse patient.[facility] HospitalIn the event this information is protected by the Federal Confidentiality of Alcohol and Drug Abuse Patient Records regulations: The Federal rules restrict any use of the information to criminally investigate or prosecute any alcohol or drug abuse patient.[facility] HospitalIn the event this information is protected by the Federal Confidentiality of Alcohol and Drug Abuse Patient Records regulations: The Federal rules restrict any use of the information to criminally investigate or prosecute any alcohol or drug abuse patient.[facility] HospitalIn the event this information is protected by the Federal Confidentiality of Alcohol and Drug Abuse Patient Records regulations: The Federal rules restrict any use of the information to criminally investigate or prosecute any alcohol or drug abuse patient.[facility] HospitalIn the event this information is protected by the Federal Confidentiality of Alcohol and Drug Abuse Patient Records regulations: The Federal rules restrict any use of the information to criminally investigate or prosecute any alcohol or drug abuse patient.[facility] HospitalIn the event this information is protected by the Federal Confidentiality of Alcohol and Drug Abuse Patient Records regulations: The Federal rules restrict any use of the information to criminally investigate or prosecute any alcohol or drug abuse patient.[facility] HospitalIn the event this information is protected by the Federal Confidentiality of Alcohol and Drug Abuse Patient Records regulations: The Federal rules restrict any use of the information to criminally investigate or prosecute any alcohol or drug abuse patient.[facility] HospitalIn the event this information is protected by the Federal Confidentiality of Alcohol and Drug Abuse Patient Records regulations: The Federal rules restrict any use of the information to criminally investigate or prosecute any alcohol or drug abuse patient.[facility] HospitalIn the event this information is protected by the Federal Confidentiality of Alcohol and Drug Abuse Patient Records regulations: The Federal rules restrict any use of the information to criminally investigate or prosecute any alcohol or drug abuse patient.[facility] HospitalIn the event this information is protected by the Federal Confidentiality of Alcohol and Drug Abuse Patient Records regulations: The Federal rules restrict any use of the information to criminally investigate or prosecute any alcohol or drug abuse patient.[facility] HospitalIn the event this information is protected by the Federal Confidentiality of Alcohol and Drug Abuse Patient Records regulations: The Federal rules restrict any use of the information to criminally investigate or prosecute any alcohol or drug abuse patient.[facility] HospitalIn the event this information is protected by the Federal Confidentiality of Alcohol and Drug Abuse Patient Records regulations: The Federal rules restrict any use of the information to criminally investigate or prosecute any alcohol or drug abuse patient.[facility] HospitalIn the event this information is protected by the Federal Confidentiality of Alcohol and Drug Abuse Patient Records regulations: The Federal rules restrict any use of the information to criminally investigate or prosecute any alcohol or drug abuse patient.[facility] HospitalIn the event this information is protected by the Federal Confidentiality of Alcohol and Drug Abuse Patient Records regulations: The Federal rules restrict any use of the information to criminally investigate or prosecute any alcohol or drug abuse patient.[facility] HospitalIn the event this information is protected by the Federal Confidentiality of Alcohol and Drug Abuse Patient Records regulations: The Federal rules restrict any use of the information to criminally investigate or prosecute any alcohol or drug abuse patient.[facility] HospitalIn the event this information is protected by the Federal Confidentiality of Alcohol and Drug Abuse Patient Records regulations: The Federal rules restrict any use of the information to criminally investigate or prosecute any alcohol or drug abuse patient.[facility] HospitalIn the event this information is protected by the Federal Confidentiality of Alcohol and Drug Abuse Patient Records regulations: The Federal rules restrict any use of the information to criminally investigate or prosecute any alcohol or drug abuse patient.[facility] HospitalIn the event this information is protected by the Federal Confidentiality of Alcohol and Drug Abuse Patient Records regulations: The Federal rules restrict any use of the information to criminally investigate or prosecute any alcohol or drug abuse patient.[facility] HospitalIn the event this information is protected by the Federal Confidentiality of Alcohol and Drug Abuse Patient Records regulations: The Federal rules restrict any use of the information to criminally investigate or prosecute any alcohol or drug abuse patient.[facility] HospitalIn the event this information is protected by the Federal Confidentiality of Alcohol and Drug Abuse Patient Records regulations: The Federal rules restrict any use of the information to criminally investigate or prosecute any alcohol or drug abuse patient.[facility] HospitalIn the event this information is protected by the Federal Confidentiality of Alcohol and Drug Abuse Patient Records regulations: The Federal rules restrict any use of the information to criminally investigate or prosecute any alcohol or drug abuse patient.[facility] HospitalIn the event this information is protected by the Federal Confidentiality of Alcohol and Drug Abuse Patient Records regulations: The Federal rules restrict any use of the information to criminally investigate or prosecute any alcohol or drug abuse patient.[facility] HospitalIn the event this information is protected by the Federal Confidentiality of Alcohol and Drug Abuse Patient Records regulations: The Federal rules restrict any use of the information to criminally investigate or prosecute any alcohol or drug abuse patient.[facility] HospitalIn the event this information is protected by the Federal Confidentiality of Alcohol and Drug Abuse Patient Records regulations: The Federal rules restrict any use of the information to criminally investigate or prosecute any alcohol or drug abuse patient.[facility] HospitalIn the event this information is protected by the Federal Confidentiality of Alcohol and Drug Abuse Patient Records regulations: The Federal rules restrict any use of the information to criminally investigate or prosecute any alcohol or drug abuse patient.[facility] HospitalIn the event this information is protected by the Federal Confidentiality of Alcohol and Drug Abuse Patient Records regulations: The Federal rules restrict any use of the information to criminally investigate or prosecute any alcohol or drug abuse patient.[facility] HospitalIn the event this information is protected by the Federal Confidentiality of Alcohol and Drug Abuse Patient Records regulations: The Federal rules restrict any use of the information to criminally investigate or prosecute any alcohol or drug abuse patient.[facility] HospitalIn the event this information is protected by the Federal Confidentiality of Alcohol and Drug Abuse Patient Records regulations: The Federal rules restrict any use of the information to criminally investigate or prosecute any alcohol or drug abuse patient.[facility] HospitalIn the event this information is protected by the Federal Confidentiality of Alcohol and Drug Abuse Patient Records regulations: The Federal rules restrict any use of the information to criminally investigate or prosecute any alcohol or drug abuse patient.[facility] HospitalIn the event this information is protected by the Federal Confidentiality of Alcohol and Drug Abuse Patient Records regulations: The Federal rules restrict any use of the information to criminally investigate or prosecute any alcohol or drug abuse patient.[facility] HospitalIn the event this information is protected by the Federal Confidentiality of Alcohol and Drug Abuse Patient Records regulations: The Federal rules restrict any use of the information to criminally investigate or prosecute any alcohol or drug abuse patient.[facility] HospitalIn the event this information is protected by the Federal Confidentiality of Alcohol and Drug Abuse Patient Records regulations: The Federal rules restrict any use of the information to criminally investigate or prosecute any alcohol or drug abuse patient.[facility] HospitalIn the event this information is protected by the Federal Confidentiality of Alcohol and Drug Abuse Patient Records regulations: The Federal rules restrict any use of the information to criminally investigate or prosecute any alcohol or drug abuse patient.[facility] HospitalIn the event this information is protected by the Federal Confidentiality of Alcohol and Drug Abuse Patient Records regulations: The Federal rules restrict any use of the information to criminally investigate or prosecute any alcohol or drug abuse patient.[facility] HospitalIn the event this information is protected by the Federal Confidentiality of Alcohol and Drug Abuse Patient Records regulations: The Federal rules restrict any use of the information to criminally investigate or prosecute any alcohol or drug abuse patient.[facility] HospitalIn the event this information is protected by the Federal Confidentiality of Alcohol and Drug Abuse Patient Records regulations: The Federal rules restrict any use of the information to criminally investigate or prosecute any alcohol or drug abuse patient.[facility] HospitalIn the event this information is protected by the Federal Confidentiality of Alcohol and Drug Abuse Patient Records regulations: The Federal rules restrict any use of the information to criminally investigate or prosecute any alcohol or drug abuse patient.[facility] HospitalIn the event this information is protected by the Federal Confidentiality of Alcohol and Drug Abuse Patient Records regulations: The Federal rules restrict any use of the information to criminally investigate or prosecute any alcohol or drug abuse patient.[facility] HospitalIn the event this information is protected by the Federal Confidentiality of Alcohol and Drug Abuse Patient Records regulations: The Federal rules restrict any use of the information to criminally investigate or prosecute any alcohol or drug abuse patient.[facility] HospitalIn the event this information is protected by the Federal Confidentiality of Alcohol and Drug Abuse Patient Records regulations: The Federal rules restrict any use of the information to criminally investigate or prosecute any alcohol or drug abuse patient.[facility] HospitalIn the event this information is protected by the Federal Confidentiality of Alcohol and Drug Abuse Patient Records regulations: The Federal rules restrict any use of the information to criminally investigate or prosecute any alcohol or drug abuse patient.[facility] HospitalIn the event this information is protected by the Federal Confidentiality of Alcohol and Drug Abuse Patient Records regulations: The Federal rules restrict any use of the information to criminally investigate or prosecute any alcohol or drug abuse patient.[facility] HospitalIn the event this information is protected by the Federal Confidentiality of Alcohol and Drug Abuse Patient Records regulations: The Federal rules restrict any use of the information to criminally investigate or prosecute any alcohol or drug abuse patient.[facility] HospitalIn the event this information is protected by the Federal Confidentiality of Alcohol and Drug Abuse Patient Records regulations: The Federal rules restrict any use of the information to criminally investigate or prosecute any alcohol or drug abuse patient.[facility] HospitalIn the event this information is protected by the Federal Confidentiality of Alcohol and Drug Abuse Patient Records regulations: The Federal rules restrict any use of the information to criminally investigate or prosecute any alcohol or drug abuse patient.[facility] HospitalIn the event this information is protected by the Federal Confidentiality of Alcohol and Drug Abuse Patient Records regulations: The Federal rules restrict any use of the information to criminally investigate or prosecute any alcohol or drug abuse patient.[facility] HospitalIn the event this information is protected by the Federal Confidentiality of Alcohol and Drug Abuse Patient Records regulations: The Federal rules restrict any use of the information to criminally investigate or prosecute any alcohol or drug abuse patient.[facility] HospitalIn the event this information is protected by the Federal Confidentiality of Alcohol and Drug Abuse Patient Records regulations: The Federal rules restrict any use of the information to criminally investigate or prosecute any alcohol or drug abuse patient.[facility] HospitalIn the event this information is protected by the Federal Confidentiality of Alcohol and Drug Abuse Patient Records regulations: The Federal rules restrict any use of the information to criminally investigate or prosecute any alcohol or drug abuse patient.[facility] HospitalIn the event this information is protected by the Federal Confidentiality of Alcohol and Drug Abuse Patient Records regulations: The Federal rules restrict any use of the information to criminally investigate or prosecute any alcohol or drug abuse patient.[facility] HospitalIn the event this information is protected by the Federal Confidentiality of Alcohol and Drug Abuse Patient Records regulations: The Federal rules restrict any use of the information to criminally investigate or prosecute any alcohol or drug abuse patient.[facility] HospitalIn the event this information is protected by the Federal Confidentiality of Alcohol and Drug Abuse Patient Records regulations: The Federal rules restrict any use of the information to criminally investigate or prosecute any alcohol or drug abuse patient.[facility] HospitalIn the event this information is protected by the Federal Confidentiality of Alcohol and Drug Abuse Patient Records regulations: The Federal rules restrict any use of the information to criminally investigate or prosecute any alcohol or drug abuse patient.[facility] HospitalIn the event this information is protected by the Federal Confidentiality of Alcohol and Drug Abuse Patient Records regulations: The Federal rules restrict any use of the information to criminally investigate or prosecute any alcohol or drug abuse patient.[facility] HospitalIn the event this information is protected by the Federal Confidentiality of Alcohol and Drug Abuse Patient Records regulations: The Federal rules restrict any use of the information to criminally investigate or prosecute any alcohol or drug abuse patient.[facility] HospitalIn the event this information is protected by the Federal Confidentiality of Alcohol and Drug Abuse Patient Records regulations: The Federal rules restrict any use of the information to criminally investigate or prosecute any alcohol or drug abuse patient.[facility] HospitalIn the event this information is protected by the Federal Confidentiality of Alcohol and Drug Abuse Patient Records regulations: The Federal rules restrict any use of the information to criminally investigate or prosecute any alcohol or drug abuse patient.[facility] HospitalIn the event this information is protected by the Federal Confidentiality of Alcohol and Drug Abuse Patient Records regulations: The Federal rules restrict any use of the information to criminally investigate or prosecute any alcohol or drug abuse patient.[facility] HospitalIn the event this information is protected by the Federal Confidentiality of Alcohol and Drug Abuse Patient Records regulations: The Federal rules restrict any use of the information to criminally investigate or prosecute any alcohol or drug abuse patient.[facility] HospitalIn the event this information is protected by the Federal Confidentiality of Alcohol and Drug Abuse Patient Records regulations: The Federal rules restrict any use of the information to criminally investigate or prosecute any alcohol or drug abuse patient.[facility] HospitalIn the event this information is protected by the Federal Confidentiality of Alcohol and Drug Abuse Patient Records regulations: The Federal rules restrict any use of the information to criminally investigate or prosecute any alcohol or drug abuse patient.[facility] HospitalIn the event this information is protected by the Federal Confidentiality of Alcohol and Drug Abuse Patient Records regulations: The Federal rules restrict any use of the information to criminally investigate or prosecute any alcohol or drug abuse patient.[facility] HospitalIn the event this information is protected by the Federal Confidentiality of Alcohol and Drug Abuse Patient Records regulations: The Federal rules restrict any use of the information to criminally investigate or prosecute any alcohol or drug abuse patient.[facility] HospitalIn the event this information is protected by the Federal Confidentiality of Alcohol and Drug Abuse Patient Records regulations: The Federal rules restrict any use of the information to criminally investigate or prosecute any alcohol or drug abuse patient.[facility] HospitalIn the event this information is protected by the Federal Confidentiality of Alcohol and Drug Abuse Patient Records regulations: The Federal rules restrict any use of the information to criminally investigate or prosecute any alcohol or drug abuse patient.[facility] HospitalIn the event this information is protected by the Federal Confidentiality of Alcohol and Drug Abuse Patient Records regulations: The Federal rules restrict any use of the information to criminally investigate or prosecute any alcohol or drug abuse patient.[facility] HospitalIn the event this information is protected by the Federal Confidentiality of Alcohol and Drug Abuse Patient Records regulations: The Federal rules restrict any use of the information to criminally investigate or prosecute any alcohol or drug abuse patient.[facility] HospitalIn the event this information is protected by the Federal Confidentiality of Alcohol and Drug Abuse Patient Records regulations: The Federal rules restrict any use of the information to criminally investigate or prosecute any alcohol or drug abuse patient.[facility] HospitalIn the event this information is protected by the Federal Confidentiality of Alcohol and Drug Abuse Patient Records regulations: The Federal rules restrict any use of the information to criminally investigate or prosecute any alcohol or drug abuse patient.[facility] HospitalIn the event this information is protected by the Federal Confidentiality of Alcohol and Drug Abuse Patient Records regulations: The Federal rules restrict any use of the information to criminally investigate or prosecute any alcohol or drug abuse patient.[facility] HospitalIn the event this information is protected by the Federal Confidentiality of Alcohol and Drug Abuse Patient Records regulations: The Federal rules restrict any use of the information to criminally investigate or prosecute any alcohol or drug abuse patient.[facility] HospitalIn the event this information is protected by the Federal Confidentiality of Alcohol and Drug Abuse Patient Records regulations: The Federal rules restrict any use of the information to criminally investigate or prosecute any alcohol or drug abuse patient.[facility] HospitalIn the event this information is protected by the Federal Confidentiality of Alcohol and Drug Abuse Patient Records regulations: The Federal rules restrict any use of the information to criminally investigate or prosecute any alcohol or drug abuse patient.[facility] HospitalIn the event this information is protected by the Federal Confidentiality of Alcohol and Drug Abuse Patient Records regulations: The Federal rules restrict any use of the information to criminally investigate or prosecute any alcohol or drug abuse patient.[facility] HospitalIn the event this information is protected by the Federal Confidentiality of Alcohol and Drug Abuse Patient Records regulations: The Federal rules restrict any use of the information to criminally investigate or prosecute any alcohol or drug abuse patient.[facility] HospitalIn the event this information is protected by the Federal Confidentiality of Alcohol and Drug Abuse Patient Records regulations: The Federal rules restrict any use of the information to criminally investigate or prosecute any alcohol or drug abuse patient.[facility] HospitalIn the event this information is protected by the Federal Confidentiality of Alcohol and Drug Abuse Patient Records regulations: The Federal rules restrict any use of the information to criminally investigate or prosecute any alcohol or drug abuse patient.[facility] HospitalIn the event this information is protected by the Federal Confidentiality of Alcohol and Drug Abuse Patient Records regulations: The Federal rules restrict any use of the information to criminally investigate or prosecute any alcohol or drug abuse patient.[facility] HospitalIn the event this information is protected by the Federal Confidentiality of Alcohol and Drug Abuse Patient Records regulations: The Federal rules restrict any use of the information to criminally investigate or prosecute any alcohol or drug abuse patient.[facility] HospitalIn the event this information is protected by the Federal Confidentiality of Alcohol and Drug Abuse Patient Records regulations: The Federal rules restrict any use of the information to criminally investigate or prosecute any alcohol or drug abuse patient.[facility] HospitalIn the event this information is protected by the Federal Confidentiality of Alcohol and Drug Abuse Patient Records regulations: The Federal rules restrict any use of the information to criminally investigate or prosecute any alcohol or drug abuse patient.[facility] HospitalIn the event this information is protected by the Federal Confidentiality of Alcohol and Drug Abuse Patient Records regulations: The Federal rules restrict any use of the information to criminally investigate or prosecute any alcohol or drug abuse patient.[facility] HospitalIn the event this information is protected by the Federal Confidentiality of Alcohol and Drug Abuse Patient Records regulations: The Federal rules restrict any use of the information to criminally investigate or prosecute any alcohol or drug abuse patient.[facility] HospitalIn the event this information is protected by the Federal Confidentiality of Alcohol and Drug Abuse Patient Records regulations: The Federal rules restrict any use of the information to criminally investigate or prosecute any alcohol or drug abuse patient.[facility] HospitalIn the event this information is protected by the Federal Confidentiality of Alcohol and Drug Abuse Patient Records regulations: The Federal rules restrict any use of the information to criminally investigate or prosecute any alcohol or drug abuse patient.[facility] HospitalIn the event this information is protected by the Federal Confidentiality of Alcohol and Drug Abuse Patient Records regulations: The Federal rules restrict any use of the information to criminally investigate or prosecute any alcohol or drug abuse patient.[facility] HospitalIn the event this information is protected by the Federal Confidentiality of Alcohol and Drug Abuse Patient Records regulations: The Federal rules restrict any use of the information to criminally investigate or prosecute any alcohol or drug abuse patient.[facility] HospitalIn the event this information is protected by the Federal Confidentiality of Alcohol and Drug Abuse Patient Records regulations: The Federal rules restrict any use of the information to criminally investigate or prosecute any alcohol or drug abuse patient.[facility] HospitalIn the event this information is protected by the Federal Confidentiality of Alcohol and Drug Abuse Patient Records regulations: The Federal rules restrict any use of the information to criminally investigate or prosecute any alcohol or drug abuse patient.[facility] HospitalIn the event this information is protected by the Federal Confidentiality of Alcohol and Drug Abuse Patient Records regulations: The Federal rules restrict any use of the information to criminally investigate or prosecute any alcohol or drug abuse patient.[facility] HospitalIn the event this information is protected by the Federal Confidentiality of Alcohol and Drug Abuse Patient Records regulations: The Federal rules restrict any use of the information to criminally investigate or prosecute any alcohol or drug abuse patient.[facility] HospitalIn the event this information is protected by the Federal Confidentiality of Alcohol and Drug Abuse Patient Records regulations: The Federal rules restrict any use of the information to criminally investigate or prosecute any alcohol or drug abuse patient.[facility] HospitalIn the event this information is protected by the Federal Confidentiality of Alcohol and Drug Abuse Patient Records regulations: The Federal rules restrict any use of the information to criminally investigate or prosecute any alcohol or drug abuse patient.[facility] HospitalIn the event this information is protected by the Federal Confidentiality of Alcohol and Drug Abuse Patient Records regulations: The Federal rules restrict any use of the information to criminally investigate or prosecute any alcohol or drug abuse patient.[facility] HospitalIn the event this information is protected by the Federal Confidentiality of Alcohol and Drug Abuse Patient Records regulations: The Federal rules restrict any use of the information to criminally investigate or prosecute any alcohol or drug abuse patient.[facility] HospitalIn the event this information is protected by the Federal Confidentiality of Alcohol and Drug Abuse Patient Records regulations: The Federal rules restrict any use of the information to criminally investigate or prosecute any alcohol or drug abuse patient.[facility] HospitalIn the event this information is protected by the Federal Confidentiality of Alcohol and Drug Abuse Patient Records regulations: The Federal rules restrict any use of the information to criminally investigate or prosecute any alcohol or drug abuse patient.[facility] HospitalIn the event this information is protected by the Federal Confidentiality of Alcohol and Drug Abuse Patient Records regulations: The Federal rules restrict any use of the information to criminally investigate or prosecute any alcohol or drug abuse patient.[facility] HospitalIn the event this information is protected by the Federal Confidentiality of Alcohol and Drug Abuse Patient Records regulations: The Federal rules restrict any use of the information to criminally investigate or prosecute any alcohol or drug abuse patient.[facility] HospitalIn the event this information is protected by the Federal Confidentiality of Alcohol and Drug Abuse Patient Records regulations: The Federal rules restrict any use of the information to criminally investigate or prosecute any alcohol or drug abuse patient.[facility] HospitalIn the event this information is protected by the Federal Confidentiality of Alcohol and Drug Abuse Patient Records regulations: The Federal rules restrict any use of the information to criminally investigate or prosecute any alcohol or drug abuse patient.[facility] HospitalIn the event this information is protected by the Federal Confidentiality of Alcohol and Drug Abuse Patient Records regulations: The Federal rules restrict any use of the information to criminally investigate or prosecute any alcohol or drug abuse patient.[facility] HospitalIn the event this information is protected by the Federal Confidentiality of Alcohol and Drug Abuse Patient Records regulations: The Federal rules restrict any use of the information to criminally investigate or prosecute any alcohol or drug abuse patient.[facility] HospitalIn the event this information is protected by the Federal Confidentiality of Alcohol and Drug Abuse Patient Records regulations: The Federal rules restrict any use of the information to criminally investigate or prosecute any alcohol or drug abuse patient.[facility] HospitalIn the event this information is protected by the Federal Confidentiality of Alcohol and Drug Abuse Patient Records regulations: The Federal rules restrict any use of the information to criminally investigate or prosecute any alcohol or drug abuse patient.[facility] HospitalIn the event this information is protected by the Federal Confidentiality of Alcohol and Drug Abuse Patient Records regulations: The Federal rules restrict any use of the information to criminally investigate or prosecute any alcohol or drug abuse patient.[facility] HospitalIn the event this information is protected by the Federal Confidentiality of Alcohol and Drug Abuse Patient Records regulations: The Federal rules restrict any use of the information to criminally investigate or prosecute any alcohol or drug abuse patient.[facility] HospitalIn the event this information is protected by the Federal Confidentiality of Alcohol and Drug Abuse Patient Records regulations: The Federal rules restrict any use of the information to criminally investigate or prosecute any alcohol or drug abuse patient.[facility] HospitalIn the event this information is protected by the Federal Confidentiality of Alcohol and Drug Abuse Patient Records regulations: The Federal rules restrict any use of the information to criminally investigate or prosecute any alcohol or drug abuse patient.[facility] HospitalIn the event this information is protected by the Federal Confidentiality of Alcohol and Drug Abuse Patient Records regulations: The Federal rules restrict any use of the information to criminally investigate or prosecute any alcohol or drug abuse patient.[facility] HospitalIn the event this information is protected by the Federal Confidentiality of Alcohol and Drug Abuse Patient Records regulations: The Federal rules restrict any use of the information to criminally investigate or prosecute any alcohol or drug abuse patient.[facility] HospitalIn the event this information is protected by the Federal Confidentiality of Alcohol and Drug Abuse Patient Records regulations: The Federal rules restrict any use of the information to criminally investigate or prosecute any alcohol or drug abuse patient.[facility] HospitalIn the event this information is protected by the Federal Confidentiality of Alcohol and Drug Abuse Patient Records regulations: The Federal rules restrict any use of the information to criminally investigate or prosecute any alcohol or drug abuse patient.[facility] HospitalIn the event this information is protected by the Federal Confidentiality of Alcohol and Drug Abuse Patient Records regulations: The Federal rules restrict any use of the information to criminally investigate or prosecute any alcohol or drug abuse patient.[facility] HospitalIn the event this information is protected by the Federal Confidentiality of Alcohol and Drug Abuse Patient Records regulations: The Federal rules restrict any use of the information to criminally investigate or prosecute any alcohol or drug abuse patient.[facility] HospitalIn the event this information is protected by the Federal Confidentiality of Alcohol and Drug Abuse Patient Records regulations: The Federal rules restrict any use of the information to criminally investigate or prosecute any alcohol or drug abuse patient.[facility] HospitalIn the event this information is protected by the Federal Confidentiality of Alcohol and Drug Abuse Patient Records regulations: The Federal rules restrict any use of the information to criminally investigate or prosecute any alcohol or drug abuse patient.[facility] HospitalIn the event this information is protected by the Federal Confidentiality of Alcohol and Drug Abuse Patient Records regulations: The Federal rules restrict any use of the information to criminally investigate or prosecute any alcohol or drug abuse patient.[facility] HospitalIn the event this information is protected by the Federal Confidentiality of Alcohol and Drug Abuse Patient Records regulations: The Federal rules restrict any use of the information to criminally investigate or prosecute any alcohol or drug abuse patient.[facility] Care Teams (unrecognized sec tion and content) Director Prospect Relationship Specialty Start Date End Date Ally Espinosa DO [address] [place] [address] PCP - General Family Practice 07/25/17 Director Prospect Relationship Specialty Start Date End Date Ally Espinosa DO [address] [place] [address] PCP - General Family Practice 07/25/17 Director Prospect Relationship Specialty Start Date End Date Ally Espinosa DO [address] [place] [address] PCP - General Family Practice 07/25/17 Director Prospect Relationship Specialty Start Date End Date Ally Espinosa DO [address] [place] [address] PCP - General Family Practice 07/25/17 Director Prospect Relationship Specialty Start Date End Date Ally Espinosa DO [address] [place] [address] PCP - General Family Practice 07/25/17 Director Prospect Relationship Specialty Start Date End Date Ally Espinosa DO [address] [place] [address] PCP - General Family Practice 07/25/17 Director Prospect Relationship Specialty Start Date End Date Sheets, Ally C, DO [address] [place] [address] PCP - General Family Practice 07/25/17 Director Prospect Relationship Specialty Start Date End Date Sheets, Ally Angelica, DO [address] [place] [address] PCP - General Family Practice 07/25/17 Director Prospect Relationship Specialty Start Date End Date Sheets, Ally Dominguez, DO [address] [place] [address] PCP - General Family Practice 07/25/17 Debora Le, adjunct professor of englishCertified Ophthalmic Technologist 04/06/21June, Juliette demetri Pharmacist Pharmacy 04/06/21 05/06/21 Director Prospect Relationship Specialty Start Date End Date Sheets, Ally Dominguez DO [address] [place] [address] PCP - General Family Practice 07/25/17 Director Prospect Relationship Specialty Start Date End Date Sheets, Ally Dominguez DO [address] [place] [address] PCP - General Family Practice 07/25/17 Director Prospect Relationship Specialty Start Date End Date SheetsAlly, DO [address] [place] [address] PCP - General Family Practice 07/25/17 Director Prospect Relationship Specialty Start Date End Date Sheets, Ally Dominguez, DO [address] [place] [address] PCP - General Family Practice 07/25/17 Director Prospect Relationship Specialty Start Date End Date Sheets, Ally Dominguez, DO [address] [place] [address] PCP - General Family Practice 07/25/17 Director Prospect Relationship Specialty Start Date End Date Sheets, Ally Dominguez, DO [address] [place] [address] PCP - General Family Practice 07/25/17 Director Prospect Relationship Specialty Start Date End Date SheetsCelialy Angelica DO [address] [place] [address] PCP - General Family Practice 07/25/17 Director Prospect Relationship Specialty Start Date End Date SheetsDiannaAlly Angelica, DO [address] [place] [address] PCP - General Family Practice 07/25/17 Director Prospect Relationship Specialty Start Date End Date Sheets Ally Dominguez DO [address] [place] [address] PCP - General Family Medicine 07/25/17 Director Prospect Relationship Specialty Start Date End Date Sheets Ally Dominguez DO [address] [place] [address] PCP - General Family Medicine 07/25/17 Director Prospect Relationship Specialty Start Date End Date Sheets Ally Dominguez DO [address] [place] [address] PCP - General Family Medicine 07/25/17 Director Prospect Relationship Specialty Start Date End Date Sheets Ally Dominguez, DO [address] [place] [address] PCP - General Family Medicine 07/25/17 Director Prospect Relationship Specialty Start Date End Date Sheets Ally Dominguez, DO [address] [place] [address] PCP - General Family Medicine 07/25/17 Director Prospect Relationship Specialty Start Date End Date Sheets, Ally Dominguez DO [address] [place] [address] PCP - General Family Medicine 07/25/17 Director Prospect Relationship Specialty Start Date End Date SheetsAlly DO [address] [place] [address] PCP - General Family Medicine 07/25/17 Director Prospect Relationship Specialty Start Date End Date SheetsDiannaAlly Angelica, DO [address] [place] [address] PCP - General Family Medicine 07/25/17 Director Prospect Relationship Specialty Start Date End Date SheetsDiannaAlly C, DO [address] [place] [address] PCP - General Family Medicine 07/25/17 Director Prospect Relationship Specialty Start Date End Date Sheets Ally Dominguez, DO [address] [place] [address] PCP - General Family Medicine 07/25/17 Director Prospect Relationship Specialty Start Date End Date Sheets Ally Dominguez, DO [address] [place] [address] PCP - General Family Medicine 07/25/17 Director Prospect Relationship Specialty Start Date End Date Sheets Ally Dominguez, DO [address] [place] [address] PCP - General Family Medicine 07/25/17 Director Prospect Relationship Specialty Start Date End Date Sheets Ally Dominguez, DO [address] [place] [address] PCP - General Family Medicine 07/25/17 Director Prospect Relationship Specialty Start Date End Date Sheets Ally Dominguez, DO [address] [place] [address] PCP - General Family Medicine 07/25/17 Director Prospect Relationship Specialty Start Date End Date Sheets Ally Dominguez, DO [address] [place] [address] PCP - General Family Medicine 07/25/17 Director Prospect Relationship Specialty Start Date End Date Ally Espinosa DO [address] [place] [address] PCP - General Family Medicine 07/25/17 Director Prospect Relationship Specialty Start Date End Date Ally Espinosa DO [address] [place] [address] PCP - General Family Medicine 07/25/17 Director Prospect Relationship Specialty Start Date End Date Ally Espinosa DO [address] [place] [address] PCP - General Family Medicine 07/25/17 Director Prospect Relationship Specialty Start Date End Date Ally Espinosa DO [address] [place] [address] PCP - General Family Medicine 07/25/17 Director Prospect Relationship Specialty Start Date End Date Ally Espinosa DO [address] [place] [address] PCP - General Family Medicine 07/25/17 Director Prospect Relationship Specialty Start Date End Date Ally Espinosa DO [address] [place] [address] PCP - General Family Medicine 07/25/17 Director Prospect Relationship Specialty Start Date End Date Ally Espinosa DO [address] [place] [address] PCP - General Family Medicine 07/25/17 Director Prospect Relationship Specialty Start Date End Date Ally Espinosa DO [address] [place] [address] PCP - General Family Medicine 07/25/17 Director Prospect Relationship Specialty Start Date End Date Silvano Ally Dominguez DO [address] [place] [address] PCP - General Family Medicine 07/25/17 Director Prospect Relationship Specialty Start Date End Date Silvano Ally Dominguez DO [address] [place] [address] PCP - General Family Medicine 07/25/17 Director Prospect Relationship Specialty Start Date End Date Silvano Ally Dominguez DO [address] [place] [address] PCP - General Family Medicine 07/25/17 Director Prospect Relationship Specialty Start Date End Date Silvano Ally Dominguez DO [address] [place] [address] PCP - General Family Medicine 07/25/17 Director Prospect Relationship Specialty Start Date End Date Ally Espinosa DO [address] [place] [address] PCP - General Family Medicine 07/25/17 Director Prospect Relationship Specialty Start Date End Date Silvano Ally Dominguez DO [address] [place] [address] PCP - General Family Medicine 07/25/17 Director Prospect Relationship Specialty Start Date End Date Silvano Ally Dominguez DO [address] [place] [address] PCP - General Family Medicine 07/25/17 Director Prospect Relationship Specialty Start Date End Date Ally Espinosa DO [address] [place] [address] PCP - General Family Medicine 07/25/17 Director Prospect Relationship Specialty Start Date End Date SheetsAlly DO [address] [place] [address] PCP - General Family Medicine 07/25/17 Director Prospect Relationship Specialty Start Date End Date SheetsAlly DO [address] [place] [address] PCP - General Family Medicine 07/25/17 Director Prospect Relationship Specialty Start Date End Date SheetsAlly DO [address] [place] [address] PCP - General Family Medicine 07/25/17 Director Prospect Relationship Specialty Start Date End Date Ally Espinosa DO [address] [place] [address] PCP - General Family Medicine 07/25/17 Director Prospect Relationship Specialty Start Date End Date SheetsAlly DO [address] [place] [address] PCP - General Family Medicine 07/25/17 Director Prospect Relationship Specialty Start Date End Date Ally Espinosa DO [address] [place] [address] PCP - General Family Medicine 07/25/17 Director Prospect Relationship Specialty Start Date End Date Ally Espinosa DO [address] [place] [address] PCP - General Family Medicine 07/25/17 Director Prospect Relationship Specialty Start Date End Date Ally Espinosa DO [address] [place] [address] PCP - General Family Medicine 07/25/17 Director Prospect Relationship Specialty Start Date End Date Ally Espinosa DO [address] [place] [address] PCP - General Family Medicine 07/25/17 Director Prospect Relationship Specialty Start Date End Date Ally Espinosa DO [address] [place] [address] PCP - General Family Medicine 07/25/17 Director Prospect Relationship Specialty Start Date End Date Ally Espinosa DO [address] [place] [address] PCP - General Family Medicine 07/25/17 Director Prospect Relationship Specialty Start Date End Date Ally Espinosa DO [address] [place] [address] PCP - General Family Medicine 07/25/17 Director Prospect Relationship Specialty Start Date End Date Ally Espinosa DO [address] [place] [address] PCP - General Family Medicine 07/25/17 Director Prospect Relationship Specialty Start Date End Date Ally Espinosa DO [address] [place] [address] PCP - General Family Medicine 07/25/17 Director Prospect Relationship Specialty Start Date End Date Ally Espinosa DO [address] [place] [address] PCP - General Family Medicine 07/25/17 Director Prospect Relationship Specialty Start Date End Date Ally Espinosa DO [address] [place] [address] PCP - General Family Medicine 07/25/17 Director Prospect Relationship Specialty Start Date End Date Ally Espinosa DO [address] [place] [address] PCP - General Family Medicine 07/25/17 Team Status: Active Member Role Status Dates Dr. Ally Espinosa DO Primary Care Provider Active Team Status: Inactive Member Role Status Dates Dr. Ally Espinosa DO Primary Care Provider Active Start: June 03, 2024 End: June 03, 2024 Dr. Ally Espinosa DO Referring Provider Active Start: June 03, 2024 End: June 03, 2024 Dr. Beau Alatorre MD Attending Provider Active Start: June 03, 2024 End: June 03, 2024 Team Status: Inactive Member Role Status Dates Dr. Ally Espinosa DO Primary Care Provider Active Start: June 03, 2024 End: June 03, 2024 Dr. Beau Alatorre MD Attending Provider Active Start: June 03, 2024 End: June 03, 2024 Dr. Beau Alatorre MD Referring Provider Active Start: June 03, 2024 End: June 03, 2024 Director Prospect Relationship Specialty Start Date End Date Ally Espinosa DO [address] [place] [address] PCP - General Family Medicine 07/25/17 Team Status: Inactive Member Role Status Dates Dr. Ally Espinosa DO Primary Care Provider Active Start: June 20, 2024 End: June 20, 2024 Dr. Ally Espinosa DO Referring Provider Active Start: June 20, 2024 End: June 20, 2024 Dr. Deepika Simmons MD Attending Provider Active Start: June 20, 2024 End: June 20, 2024 Team Status: Inactive Member Role Status Dates Dr. Ally Espinosa DO Primary Care Provider Active Start: June 23, 2024 End: June 23, 2024 Dr. Beau Alatorre MD Attending Provider Active Start: June 23, 2024 End: June 23, 2024 Dr. Beau Alatorre MD Referring Provider Active Start: June 23, 2024 End: June 23, 2024 Team Status: Active Member Role Status Dates Dr. Ally Espinosa DO Primary Care Provider Active Start: June 23, 2024 Dr. Panda Patel MD Attending Provider Active S tart: June 23, 2024 Team Status: Active Member Role Status Dates Dr. Ally Espinosa DO Primary Care Provider Active Start: June 23, 2024 Dr. Panda Patel MD Attending Provider Active S tart: June 23, 2024 Dr. Beau Alatorre MD Referring Provider Active Start: June 23, 2024 Team Status: Inactive Member Role Status Dates Dr. Ally Espinosa DO Primary Care Provider Active Start: July 01, 2024 End: July 01, 2024 Dr. Beau Alatorre MD Attending Provider Active Start: July 01, 2024 End: July 01, 2024 Dr. Beau Alatorre MD Referring Provider Active Start: July 01, 2024 End: July 01, 2024 Team Status: Inactive Member Role Status Dates Dr. Ally Espinosa DO Primary Care Provider Active Start: July 15, 2024 End: July 15, 2024 Dr. Ally Espinosa DO Referring Provider Active Start: July 15, 2024 End: July 15, 2024 Dr. Beau Alatorre MD Attending Provider Active Start: July 15, 2024 End: July 15, 2024 Director Prospect Relationship Specialty Start Date End Date Ally Espinosa DO [address] [place] [id number] PCP - General Family Medicine 07/25/17 Team Status: Inactive Member Role Status Dates Dr. Ally Espinosa DO Primary Care Provider Active Start: July 15, 2024 End: July 15, 2024 Dr. Ally Espinosa DO Attending Provider Active Start: July 15, 2024 End: July 15, 2024 Dr. Ally Espinosa DO Referring Provider Active Start: July 15, 2024 End: July 15, 2024 Director Prospect Relationship Specialty Start Date End Date Ally Espinosa DO [address] [place] [address] PCP - General Family Medicine 07/25/17 Director Prospect Relationship Specialty Start Date End Date Ally Espinosa DO [address] [facility] [place] [address] PCP - General Family Medicine 07/25/17 Goals (unrecognized section and content) Goals may be documented in a n alternate sectionGoals may be documented in an alternate sectionGoals may be documented in an alternate sectionGoals may be documented in an alternate sectionGoals may be documented in an alternate section FOR RECORDS PERTAINING TO PATIENTS WHO ARE OR HAVE BEEN ENROLLED IN A CHEMICAL DEPENDENCY/SUBSTANCEABUSE PROGRAM, SOME INFORMATION MAY BE OMITTED. This clinical summary was aggregated from multiple sources. Caution should be exercised in using it in the provision of clinical care. This summary normalizes information from multiple sources, and as a consequence, information in this document may materially change the coding, format and clinical context of patient data. In addition, data may be omitted in some cases. CLINICAL DECISIONS SHOULD BE BASED ON THE PRIMARY CLINICAL RECORDS. [facility] [employer] [facility]. provides no warranty or guarantee of the accuracy or completeness of information in this document.
--- NOTE | 2024-08-06 12:26 | STRESSREP ---
Stress Test Report Pharmacologic myocardial perfusion stress test. 74-year-old lady with a history of chest pain Resting EKG demonstrates sinus rhythm with a rate of 77 bpm. Resting blood pressure is 144/82 mmHg. 0.4 mg of regadenoson was infused per usual protocol followed by rapid intravenous saline flush injection. Continuous EKG monitoring was performed. The maximum heart rate was 88 bpm which was 86% of max impacted heart rate the maximum workload was 1 metabolic equivalent. At rest there were no ST or T wave changes noted to suggest ischemia and at peak infusion nonspecific ST changes were noted which did not meet the criteria for ischemia. No clinical angina is noted. The final blood pressure was 128/82 mmHg. Myocardial perfusion protocol. 14.5 mCi of technetium 99m sestamibi was injected at rest. 0.4 mg of regadenoson was infused per usual protocol. At peak infusion 44.3 mCi of technetium 99m sestamibi was injected stress images were obtained stress and rest images were reconstructed and compared in the short axis vertical long and horizontal long axis. Gated images were also obtained. Perfusion SPECT analysis: Review of the stress images demonstrate normal uptake of tracer noted in all areas of the myocardium. The resting images similar demonstrated normal uptake of tracer noted in all areas of the myocardium. No areas of reversibility are noted to suggest ischemia and no previous infarct is noted. Gated SPECT analysis: The gated ejection fraction is 80%. Conclusion: Normal pharmacologic myocardial perfusion stress test. Preserved ejection fraction.
== END | disposition home or self-care (01) ==
LOC: CVS 07:03
PROVIDERS: PCP Family Medicine; Referring Provider Internal Medicine Cardiovascular Disease; Visit Provider Internal Medicine Cardiovascular Disease
DX: R07.9 Chest pain, unspecified (principal); R60.0 Localized edema
CPT/HCPCS: 78452; 93017; 93306; A9500; A4216; J2785